=== PATIENT | female | born 1990 | race Caucasian/White ===

== ENCOUNTER → 2020-12-15 | Outpatient (CLI) | payer OTHER, SELFPAY ==
[2020-12-15 15:29] VITALS: BMI 24.9
[2020-12-20 13:48] LABS: HPV APTIMA, High Risk Negative (Negative)
== END | disposition home or self-care (01) ==
LOC: LABSPEC 17:10
PROVIDERS: PCP Family Medicine; Referring Provider Obstetrics & Gynecology; Visit Provider Obstetrics & Gynecology
DX: Z12.4 Encounter for screening for malignant neoplasm of cervix (principal)
CPT/HCPCS: 87624; 88175; G0145

== ENCOUNTER → 2021-01-20 | Outpatient (CLI) | payer OTHER, SELFPAY ==
[2021-01-20 13:42] LABS: Amphetamine Urine VISTA NEGATIVE (<1000 ng/mL); Barbiturate Urine VISTA NEGATIVE (< 200 ng/mL); Benzodiazepine Urine VISTA NEGATIVE (< 200 ng/mL); Cocaine Urine VISTA NEGATIVE (< 300 ng/mL); Ecstacy Urine VISTA NEGATIVE (< 500 ng/mL); Methadone Urine VISTA NEGATIVE (< 300 ng/mL); PCP Urine VISTA NEGATIVE (< 25 ng/mL); THC Urine VISTA NEGATIVE (< 50 ng/mL); Vista UDS pH Range 6
[2021-01-22 03:08] LABS: Chlamydia By Nucleic Acid AMP Negative (Negative)
[2021-01-22 09:16] LABS: Gonococcus By Nucleic Acid AMP Negative (Negative)
== END | disposition home or self-care (01) ==
LOC: LABSPEC 13:25
PROVIDERS: PCP Family Medicine; Referring Provider Obstetrics & Gynecology; Visit Provider Obstetrics & Gynecology
DX: Z34.80 Encounter for supervision of other normal pregnancy, unspecified trimester (principal); E03.9 Hypothyroidism, unspecified
CPT/HCPCS: 80307; 87077; 87086; 87088; 87186; 87491; 87591

== ENCOUNTER 2021-02-06 06:35 | Emergency (ER) | payer OTHER, SELFPAY ==
[2021-02-06 06:36] VITALS: BP 90/65; PULSE 73; RESP 16; TEMP 37.1; O2SAT 97; BMI 26.4
--- NOTE | 2021-02-06 07:12 | EDS_ITS ---
HPI History of Present Illness Chief Complaint: Nausea/Vomiting/Diarrhea Informant: patient and spouse/S.O. Narrative Narrative: Patient presents with a few issues. 1 issue is that she woke up and has a few hives in various parts of her body this morning. They itch. But she has no shortness of breath. Radiation no new medications. She did get a flu shot on Sunday but the symptoms really just started overnight. Patient also has had hyperemesis gravidarum for about 6 weeks. It waxes and wanes. She has tried Phenergan a couple times when she has been nauseated but she is always vomited. She was also treated for UTI. She ended nitrofurantoin on Sunday. She states the urine is still dark. There is mild frequency. She also thinks she may have had a slight fever over the last day. She also has a slight nonproductive cough and some myalgias. She states she feels sort of like a flu. She did have Covid back the beginning of the year. She has not had immunizations. Her also has a very slight nonproductive cough. Nothing specifically makes the symptoms better or worse. [facility] Medical History History of oligohydramnios in prior , currently IUGR (intrauterine growth restriction) in prior , Home Medications levothyroxine 137 mcg capsule 137 mcg PO DAILY 12/15/20 [History Last Taken Unknown] multivitamin no.47-iron fum 27 mg-folate no.1 1 mg-dha 300 mg capsule cap PO 01/04/21 [History Last Taken Unknown] cephalexin 500 mg PO Q6 #40 cap 02/06/21 [Rx Last Taken Unknown] ondansetron 4 mg PO Q8H PRN #10 tab 02/06/21 [Rx Last Taken Unknown] sertraline 25 mg PO DAILY 02/06/21 [History Last Taken Unknown] Allergy/AdvReac Type Severity Reaction Status Date / Time No Known Allergies Allergy Verified 01/20/21 10:07 Family History Father Diabetes Grandfather Diabetes Mother Seizures Surgical History S/P Social History adopted: Yes Smoking Status: Never smoker alcohol intake: current alcohol intake frequency: holidays/special occasions only substance use type: does not use caffeine: Yes what type of physical activity do you participate in: walking and additional details: yuni frequency: 1-2 times per week additional social history: -Stephen ROS ROS ED Constitutional Constitutional ED: Reports subjective Eyes Eyes: Denies change in vision ENT ENT ED: Reports rhinorrhea and sore throat; Denies ear pain Cardiovascular Cardiovascular: Denies chest pain or palpitations Respiratory/Chest Respiratory/Chest: Reports cough; Denies dyspnea or sputum Gastrointestinal Gastrointestinal: Reports nausea and vomiting; Denies abdominal pain or diarrhea Genitourinary Genitourinary ED: Reports dysuria, urinary frequency and other Details: Occasional dark urine with mild dysuria and mild odor. This has been waxing and waning for some time. Musculoskeletal Musculoskeletal: Reports myalgias Integumentary Reports rash; Denies abscess or Abrasions Neurologic Neurologic: Denies headache(s) Endocrine Endocrinology: Denies polyuria Allergic/Immunologic Allergic/Immunologic ED: Reports urticaria; Denies mouth swelling or tongue swelling EXAM Physical Exam Const Vital Signs: 02/06/21 06:36 02/06/21 08:58 02/06/21 10:00 Temperature 98.7 F Temperature Source Temporal Pulse Rate 73 75 Respiratory Rate 16 16 16 Blood Pressure 90/65 99/68 Blood Pressure Mean 73 78 Pulse Ox 97 100 Oxygen Delivery Method Room Air Room Air Positive well nourished and well developed General Appearance ED: well developed and NAD HEENT Reports dry mucous membranes Negative for trauma or tenderness Mouth ED: Yes dry mucous membranes Mouth: dry mucous membranes Eyes General Eye ED: Negative for pale conjunctiva or scleral icterus Neck no lymphadenopathy Resp normal respiratory effort and clear to auscultation bilaterally Auscultation: Negative for rales, rhonchi or wheezes Cardio regular rate and regular rhythm GI normal to inspection, nondistended, normoactive bowel sounds and non-tender Palpation: soft Back/Spine no CVA tenderness Extremity normal to inspection Neuro oriented x3 Sensorium / Orientation: alert Psych mental status grossly normal Skin Skin Narrative: Patient does have just a small number of hives. She has some on her right and left hip area. Small amount of redness on forearms. These are pruritic raised well demarcated. MDM MDM MDM Narrative Medical decision making narrative: Patient's blood work shows mild anemia which is nonspecific. Potassium should self correct. It is mildly low at 3.4. Urine does show increased white cells and leukocyte esterase. This is a good clean- catch. With some mild symptoms of urine infection, subjective fevers we will treat this pending culture. I explained that if her culture is negative we may be able to stop this. Her Covid is negative. She feels better with meds. I will get her home on Zofran. We discussed some of the studies that have showed concerns with it but it is also important that she tolerates food and fluids. She will follow up with her OB physician. Lab Data Attestation: I reviewed the patient's lab results. Labs: Laboratory Results - last 24 hr 02/06/21 02/06/21 02/06/21 06:50 06:50 09:00 WBC 7.9 RBC 3.77 L Hgb 11.3 L Hct 34.4 L MCV 91.2 MCH 30.0 MCHC 32.8 RDW Std Deviation 42.6 RDW Coeff of Shantel 12.7 Plt Count 179 MPV 10.5 Immature Gran % (Auto) 0.500 Neut % (Auto) 70.4 H Lymph % (Auto) 19.0 Toole % (Auto) 8.4 Eos % (Auto) 1.3 Baso % (Auto) 0.4 Absolute Neuts (auto) 5.5 Absolute Lymphs (auto) 1.49 Nucleated RBC % 0 Sodium 139 Potassium 3.4 L Chloride 108 H Carbon Dioxide 24.0 Anion Gap 7 BUN 4 L Creatinine 0.44 L Estim Creat Clear Calc 150.43 Est GFR (MDRD) Af Amer 212 Est GFR (MDRD) Non-Af 176 BUN/Creatinine Ratio 9.1 L Glucose 97 Calcium 8.7 Urine Color Yellow Urine Clarity Clear Urine pH 7.0 Ur Specific [place] 1.010 Urine Protein Negative Urine Glucose (UA) Normal Urine Ketones Negative Urine Occult Blood 10 H Urine Nitrite Negative Urine Bilirubin Negative Urine Urobilinogen Normal Ur Leukocyte Esterase 500 H Urine RBC 0 SEEN Urine WBC 5-10 SEEN Ur Squamous Epith Cells 0 SEEN Urine Bacteria 2+ Urine Mucus 0 SEEN Discharge Plan Triage Chief Complaint: Nausea/Vomiting/Diarrhea ED Provider: Antonio Baires Dx/Rx/DC Orders Clinical Impression: UTI in , Hyperemesis gravidarum Instructions: Urinary Tract Infections in Women, ED Hyperemesis Gravidarum Prescriptions: New cephalexin [cephalexin] 500 MG capsule 500 mg PO Q6 Qty: 40 RF: 0 ondansetron 4 mg tablet,disintegrating 4 mg PO Q8H PRN (Reason: nausea and vomiting) Qty: 10 RF: 0 No Action levothyroxine 137 mcg capsule 137 mcg PO DAILY RF: 0 PNV-DHA 27 mg iron-1 mg -300 mg capsule PO RF: 0 sertraline 25 mg tablet 25 mg PO DAILY RF: 0 Primary Care Provider: Cain Holley Referrals: Cain Holley MD [Primary Care Provider] - Smiley Madrid MD [STAFF PHYSICIAN] - 1-2 Days if not improving Disposition Disposition: Home, Self Care
[2021-02-06] MEDS: 0.9% Normal Saline 1,000 ML 1000 ML IV (07:25)
[2021-02-06] MEDS: Ondansetron 4 MG/2 ML Vial IV (07:25)
[2021-02-06 07:31] LABS: Anion Gap 7 (5-15); BUN 4 mg/dL (7-18); BUN/Creat Ratio 9.1 RATIO (10-20); Calcium,Total 8.7 mg/dL (8.5-10.1); Chloride 108 mmol/L (98-107); Creatinine, Serum 0.44 mg/dL (0.55-1.02); EST Glomerular Filtration Rate 176 mL/min (>60); Est Glom Filt Rate - Afr Amer 212 mL/min (>60); Estimated Creatinine Clearance 150.43 ml/min; Glucose 97 mg/dL (74-106); Potassium 3.4 mmol/L (3.5-5.1); Sodium Level 139 mmol/L (136-145)
[2021-02-06 07:32] LABS: Absolute Lymphocyte Count 1.49 X10^3/uL (0.83-4.51); Absolute Neutrophil Count 5.5 X10^3/uL (2.0-7.7); Basophil# 0.03 X10^3/uL; Basophil% 0.4 % (0-1); Eosinophils% 1.3 % (0-5); Hematocrit 34.4 % (37-47); Hemoglobin 11.3 g/dL (12.0-15.0); Lymphocyte # 1.49 X10^3/ul (0.83-4.51); Mean Corp Hgb Conc 32.8 g/dL (32-36); Mean Corpuscular Volume 91.2 fL (81-99); Mean Platelet Vol. 10.5 fl (6.2-12.0); Monocyte# 0.66 X10^3/uL; Monocyte% 8.4 % (0-10); NRBC Flagged by Analyzer 0 % (0-5); Neutrophil # 5.53 X10^3/uL (2.7-7.7); Neutrophil % 70.4 % (47-70); Platelet Count 179 K/mm3 (150-450); RBC Distribution Width CV 12.7 % (11.6-14.6); RBC Distribution Width SD 42.6 fl (35.1-43.9); Red Blood Count 3.77 M/mm3 (4.2-5.4); White Blood Count 7.9 K/mm3 (4.4-11.0)
[2021-02-06 08:58] VITALS: BP 99/68; PULSE 75; RESP 16; O2SAT 100
[2021-02-06 09:11] LABS: Mucous, Urine 0 SEEN /hpf (<or=2+); Red Blood Cells-Urine 0 SEEN /hpf (0-5); Squamous Epithelial Cells - UA 0 SEEN /hpf (5-10)
[2021-02-06 09:13] LABS: Color, Urine Yellow (Yellow); Glucose, Dipstick Normal (Normal); Ketone-Dipstick Negative (Negative); Leukocyte Esterase-Dipstick 500 /ul (Negative); Nitrite-Dipstick Negative (Negative); Occult Blood-Urine 10 /ul (Negative); Protein-Dipstick Negative (Negative); Urine Bilirubin Dipstick Negative (Negative); Urine Clarity Clear (Clear); Urine Urobilinogen Normal (Normal)
[2021-02-06 09:25] LABS: Bacteria 2+ /hpf (None Seen); White Blood Cells 5-10 SEEN /hpf (0-5)
[2021-02-06 10:00] VITALS: RESP 16
[2021-02-06 10:59] VITALS: PULSE 80; RESP 16; O2SAT 98
== END 2021-02-06 11:01 | disposition home or self-care (01) ==
PROVIDERS: Emergency Provider Emergency Medicine; PCP Family Medicine
DX: O23.40 Unspecified infection of urinary tract in pregnancy, unspecified trimester (principal); N39.0 Urinary tract infection, site not specified; O21.0 Mild hyperemesis gravidarum; Z3A.00 Weeks of gestation of pregnancy not specified
CPT/HCPCS: 80048; 81001; 85025; 87077; 87086; 87088; 87186; 87426; 96361; 96374; 99283; J7030; A4216; J2405

== ENCOUNTER → 2021-03-17 11:00 | Outpatient (CLI) | payer OTHER, SELFPAY ==
[2021-03-17 11:40] LABS: Absolute Lymphocyte Count 1.55 X10^3/uL (0.83-4.51); Basophil# 0.03 X10^3/uL; Basophil% 0.4 % (0-1); Eosinophil# 0.19 X10^3/uL; Eosinophils% 2.3 % (0-5); Hematocrit 32.4 % (37-47); Hemoglobin 10.8 g/dL (12.0-15.0); Lymphocyte # 1.55 X10^3/ul (0.83-4.51); Lymphocyte % 18.7 % (19-41); Mean Corp Hgb Conc 33.3 g/dL (32-36); Mean Corpuscular Hgb 30.2 pg (27.0-32.0); Mean Corpuscular Volume 90.5 fL (81-99); Mean Platelet Vol. 10.3 fl (6.2-12.0); Monocyte# 0.47 X10^3/uL; Monocyte% 5.7 % (0-10); NRBC Flagged by Analyzer 0 % (0-5); Neutrophil # 6.03 X10^3/uL (2.7-7.7); Neutrophil % 72.5 % (47-70); Platelet Count 206 K/mm3 (150-450); RBC Distribution Width CV 13.3 % (11.6-14.6); RBC Distribution Width SD 43.8 fl (35.1-43.9); Red Blood Count 3.58 M/mm3 (4.2-5.4); White Blood Count 8.3 K/mm3 (4.4-11.0)
[2021-03-17 12:08] LABS: T4 Free Direct 1.07 ng/dL (0.76-1.46); Thyroid Stim Hormone (TSH) 5.83 uIU/mL (0.358-3.74)
[2021-03-17 12:40] LABS: HIV - WCH Non-Reactive (Nonreactive); Hepatitis B Surface Antigen Non-Reactive (Nonreactive); Hepatitis C Antibody Non-Reactive (Nonreactive); Rubella IgG Reactive (Nonreactive); Syphilis Antibodies Non-reactive
== END ==
PROVIDERS: Obstetrics & Gynecology; PCP Family Medicine; Referring Provider Nurse Practitioner Women's Health; Visit Provider Nurse Practitioner Women's Health
DX: O23.40 Unspecified infection of urinary tract in pregnancy, unspecified trimester (principal); E03.9 Hypothyroidism, unspecified; Z3A.00 Weeks of gestation of pregnancy not specified
CPT/HCPCS: 36415; 84439; 84443; 85025; 86703; 86762; 86780; 86803; 86850; 86900; 86901; 87077; 87086; 87088; 87186; 87340

== ENCOUNTER 2021-03-28 12:05 | Outpatient (CLI) | payer OTHER, SELFPAY ==
[2021-03-28 12:25] VITALS: BMI 26.4
[2021-03-28 12:34] VITALS: BP 107/53; PULSE 67; TEMP 36.3
[2021-03-28 12:56] LABS: ROM Internal Control Test YES-OK TO RESULT pt. (Internal QC); ROM Patient Test Negative (Negative)
--- NOTE | 2021-03-28 15:59 | NURSING ---
DR Madrid's called and pt ROM negative. may discharge home.
--- NOTE | 2021-03-28 17:33 | OB.TRI.PN ---
Progress Notes Date of Service: 03/28/21 Progress Note: seen for possible ROM and amnisure negative positive FHT fu as scheduled Laboratory Studies: Laboratory Tests 03/28/21 Range/Units 12:32 Vag Amniotic Fld Detect Negative (Negative) Charges/Coding Procedures Urinary/Genital 52xxx-59xxx: No Charge
== END 2021-03-28 13:15 | disposition home or self-care (01) ==
LOC: WPOUT 12:13 → WP 12:15
PROVIDERS: PCP Family Medicine; Visit Provider Obstetrics & Gynecology
DX: Z03.71 Encounter for suspected problem with amniotic cavity and membrane ruled out (principal)
CPT/HCPCS: 84112; 99218; G0378

== ENCOUNTER 2021-05-12 10:01 | Outpatient (CLI) | payer OTHER, SELFPAY ==
[2021-05-12 10:53] LABS: T4 Free Direct 0.95 ng/dL (0.76-1.46); Thyroid Stim Hormone (TSH) 1.66 uIU/mL (0.358-3.74)
== END 2021-05-12 23:59 | disposition short-term general hospital (02) ==
LOC: PAVLAB 10:02
PROVIDERS: PCP Family Medicine; Referring Provider Obstetrics & Gynecology; Visit Provider Obstetrics & Gynecology
DX: E03.9 Hypothyroidism, unspecified (principal)
CPT/HCPCS: 36415; 84439; 84443

== ENCOUNTER 2021-06-10 12:24 | Outpatient (CLI) | payer OTHER, SELFPAY ==
[2021-06-10 12:51] LABS: Absolute Lymphocyte Count 0.81 X10^3/uL (0.83-4.51); Absolute Neutrophil Count 4.4 X10^3/uL (2.0-7.7); Basophil# 0.01 X10^3/uL; Basophil% 0.2 % (0-1); Eosinophil# 0.02 X10^3/uL; Eosinophils% 0.3 % (0-5); Hematocrit 32.4 % (37-47); Hemoglobin 11.1 g/dL (12.0-15.0); Lymphocyte # 0.81 X10^3/ul (0.83-4.51); Mean Corp Hgb Conc 34.3 g/dL (32-36); Mean Corpuscular Volume 93.4 fL (81-99); Mean Platelet Vol. 10.1 fl (6.2-12.0); Monocyte# 0.47 X10^3/uL; Monocyte% 8.1 % (0-10); NRBC Flagged by Analyzer 0 % (0-5); Neutrophil # 4.42 X10^3/uL (2.7-7.7); Neutrophil % 76.7 % (47-70); Platelet Count 174 K/mm3 (150-450); RBC Distribution Width CV 12.8 % (11.6-14.6); RBC Distribution Width SD 43.6 fl (35.1-43.9); Red Blood Count 3.47 M/mm3 (4.2-5.4); White Blood Count 5.8 K/mm3 (4.4-11.0)
[2021-06-10 13:13] LABS: Glucose Challenge Gest 1H 50g 143 mg/dL (70-140)
== END 2021-06-10 23:59 | disposition short-term general hospital (02) ==
LOC: LAB 12:26
PROVIDERS: PCP Family Medicine; Referring Provider Obstetrics & Gynecology; Visit Provider Obstetrics & Gynecology
DX: Z34.80 Encounter for supervision of other normal pregnancy, unspecified trimester (principal)
CPT/HCPCS: 36415; 82950; 85025

== ENCOUNTER 2021-06-20 06:56 | Outpatient (CLI) | payer OTHER, SELFPAY ==
[2021-06-20 07:35] LABS: Glucose GTT-Gestation. Fasting 86 mg/dL (<105)
[2021-06-20 07:52] LABS: Thyroid Stim Hormone (TSH) 2.71 uIU/mL (0.358-3.74)
[2021-06-20 08:50] LABS: Glucose GTT-Gestational 1 Hr 187 mg/dL (<190)
[2021-06-20 09:58] LABS: Glucose GTT-Gestational 2 Hr 170 mg/dL (<165)
[2021-06-20 11:01] LABS: Glucose GTT-Gestational 3 Hr 117 L (<145)
== END 2021-06-20 23:59 | disposition home or self-care (01) ==
LOC: LAB 06:56
PROVIDERS: PCP Family Medicine; Visit Provider Obstetrics & Gynecology
DX: O99.810 Abnormal glucose 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 pregnancy (principal); O99.280 Endocrine, nutritional and metabolic diseases 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 pregnancy, unspecified trimester; E03.9 Hypothyroidism, unspecified
CPT/HCPCS: 36415; 82951; 82952; 84443

== ENCOUNTER 2021-06-30 10:55 | Outpatient (RCR) | payer OTHER, SELFPAY | END 2021-07-04 23:59 | LOC: NS 10:55 | PROVIDERS: PCP Family Medicine; Referring Provider Obstetrics & Gynecology; Visit Provider Obstetrics & Gynecology | DX: Z71.3 Dietary counseling and surveillance (principal); O24.419 Gestational diabetes mellitus in pregnancy, unspecified control; Z3A.00 Weeks of gestation of pregnancy not specified | CPT/HCPCS: 97802 ==

== ENCOUNTER 2021-07-27 13:00 | Outpatient (RCR) | payer OTHER, SELFPAY | END 2021-08-04 23:59 | LOC: DC 13:00 | PROVIDERS: PCP Family Medicine; Referring Provider Obstetrics & Gynecology; Visit Provider Obstetrics & Gynecology | DX: O24.419 Gestational diabetes mellitus in pregnancy, unspecified control (principal) | CPT/HCPCS: 97803 ==

== ENCOUNTER 2021-07-29 07:53 | Outpatient (CLI) | payer OTHER, SELFPAY ==
--- NOTE | 2021-07-29 08:39 | US_ITS ---
STUDY: SECOND AND THIRD TRIMESTER OBSTETRICAL ULTRASOUND - LIMITED REASON FOR EXAM: Female, 31 years old. growth PRIOR ULTRASOUND: None. TECHNIQUE: Transabdominal TECHNICAL QUALITY: Adequate. FINDINGS: There is a single intrauterine fetus. The fetus is in a cephalic presentation. There is demonstrated cardiac activity with a heart rate of 130 bpm. There is a normal amniotic fluid volume. The largest amniotic fluid pocket measures 5 cm. The amniotic fluid index (MARTI) is 11.6 cm. The placenta is anterior in location and is not low lying. There are Grade 1 placental changes. The cervix is obscured by overlying bowel gas and cannot be identified. . BIOMETRY: BPD: 82 mm: 33 weeks, 0 days HC: 306 mm: 34 weeks, 0 days AC: 333 mm: 37 weeks, 1 days FL: 70 mm: 35 weeks, 6 days CI: 77 FL/AC: 21 FL/BPD: 85 HC/AC: 0.92 age by current US: 34 weeks, 5 days. MARGUERITE by current US: 5.1.22. Estimated weight: 2887 grams, +/- 433 grams, 58 %. Age by LMP: 36 weeks, 0 days. MARGUERITE by LMP: 4.22.22. US/OB Limited With Biometrics IMPRESSION: There is a single live intrauterine with a heart rate of 130 bpm. age by current US: 34 weeks, 5 days. MARGUERITE by current US: 5.1.22. Estimated weight: 2887 grams, +/- 433 grams, 58 %. Electronically Signed: Daniel Lawrence MD at 17:14 EDT ,
== END 2021-07-29 23:59 | disposition home or self-care (01) ==
LOC: OPUS 08:38
PROVIDERS: PCP Family Medicine; Referring Provider Obstetrics & Gynecology; Visit Provider Obstetrics & Gynecology
DX: O24.410 Gestational diabetes mellitus in pregnancy, diet controlled (principal); Z3A.00 Weeks of gestation of pregnancy not specified
CPT/HCPCS: 76816

== ENCOUNTER 2021-08-05 08:09 | Outpatient (CLI) | payer OTHER, SELFPAY | END 2021-08-05 23:59 | disposition home or self-care (01) | LOC: LABSPEC 08-08 08:10 | PROVIDERS: PCP Family Medicine; Visit Provider Obstetrics & Gynecology | DX: Z34.80 Encounter for supervision of other normal pregnancy, unspecified trimester (principal) | CPT/HCPCS: 87081 ==

== ENCOUNTER 2021-08-22 05:03 | Inpatient (IN) | payer OTHER, SELFPAY ==
--- NOTE | 2021-08-21 04:47 | HP.PCM.OB_ITS ---
HPI - General HPI Narrative KARRI VILLAVICENCIO, is a 31 F who presents for scheduled RLTCS Maternal Data Information MARGUERITE Calculator Estimated Delivery Date Method Current WG Current Estimate 08/26/21 LMP (Certain) 39w 2d PFSH PFSH Medical History Anemia affecting History of oligohydramnios in prior , currently IUGR (intrauterine growth restriction) in prior , Home Medications multivitamin no.47-iron fum 27 mg-folate no.1 1 mg-dha 300 mg capsule cap PO 01/04/21 [History Last Taken Unknown] sertraline 25 mg PO DAILY 02/06/21 [History Last Taken Unknown] cephalexin 500 mg tablet 500 mg PO BID #60 tab 03/21/21 [Rx Last Taken Unknown] levothyroxine 150 mcg tablet 150 mcg PO DAILY 30 Days #30 tab 04/14/21 [Rx Last Taken Unknown] blood sugar diagnostic #50 ea 06/22/21 [Rx Last Taken Unknown] Allergy/AdvReac Type Severity Reaction Status Date / Time No Known Allergies Allergy Verified 08/12/21 08:53 Family History Father Diabetes Grandfather Diabetes Mother Seizures Surgical History S/P Social History adopted: Yes Smoking Status: Never smoker alcohol intake: current alcohol intake frequency: holidays/special occasions only substance use type: does not use caffeine: Yes what type of physical activity do you participate in: walking and additional details: yuni frequency: 1-2 times per week additional social history: -Stephen History 4 Elective abortions Hx Para 2 Spontaneous abortions 1 Hx # Term Pregnancies Ectopic pregnancies Hx # Pregnancies Multiple births # of living children 2 Past Pregnancies Del. Date Name GA/Weeks Outcome Route Bth Weight Gen Labor Lgth Anesthesia Del Locatn Provider FOB 04/03/17 Antonina 40 live - full term 7lbs 12oz Fem sahil 3 days epidural [facility] Dr. Myranda Mitchell 01/10/19 Raffy 36 live - 5lbs 12oz Male 0 spinal Worthamolga Mitchell Delivery Date: 04/03/17 STAT c/s nuchal cord; distress Kim Olsen Delivery Date: 01/10/19 PPROM, STAT C/S; IUGR; [place] Kim Olsen Visit Details Expected Delivery Route/Plan RLTCS Plans Covid status: pos May, counseled regarding risk of covid in vs vaccination and considering vaccination Flu vaccine: given Tdap vaccine:given Rhogam: LARC form signed: declined movement and labor precautions reviewed. Problem list reviewed and updated with the most current plan of care details and appropriate orders placed. Relevant counseling for the gestational age provided. Continue routine care and follow up unless otherwise noted in visit notes/problem list details OB Flowsheet Initial Weight: 148 lb Date -?-?-?-?-?-?-?-?-?-?-?-?- EGA Weight BP Urine Prot -?-?-?-?-?-?-?-?-?-?-?-?- Glucose FHR FuHt Pres Dilation -?-?-?-?-?-?-?-?-?-?-?-?- Effaced St Visit Note 01/20/21 -?-?-?-?-?-?-?-?-?-?-?-?- 8w 6d 148 lb (+0 oz) 116/70 -?-?-?-?-?-?-?-?-?-?-?-?- 168 -?-?-?-?-?-?-?-?-?-?-?-?- SM- CRL 2 cm con s with LMP 02/18/21 -?-?-?-?-?-?-?-?-?-?-?-?- 13w 0d 148 lb 2 oz (+2 oz) 118/78 Negative -?-?-?-?-?-?-?-?-?-?-?-?- Negative 140 -?--?-?-?-?-?-?-?-?-?-?-?- GP - no cramping or bleeding. Discussed N/V. Discussed hives -encouraged to call PCP if continue. Anatomy scan ordered. 03/17/21 -?-?-?-?-?-?-?-?-?-?-?-?- 16w 6d 152 lb (+4 lb) 112/58 Negative -?-?-?-?-?-?-?-?-?-?-?-?- Negative 141 -?-?-?-?-?-?-?-?-?-?-?-?- MH-No VB, LOF. Feeling better. Anatomy US 03/29. Echo ordered 04/14/21 -?-?-?-?-?-?-?-?-?-?-?-?- 20w 6d 155 lb 6 oz (+7 lb 6 oz) 122/68 Negative -?-?-?-?-?-?-?-?-?-?-?-?- Negative 123 -?-?-?-?-?-?-?-?-?-?-?-?- JV- no lof, vagi nal bleeding but has left side pain radiating down to leg 05/12/21 -?-?-?-?-?-?-?-?-?-?-?-?- 24w 6d 162 lb (+14 lb) 118/60 Negative -?-?-?-?-?-?-?-?-?-?-?-?- Negative 150 25 -?-?-?-?-?-?-?-?-?-?-?-?- SM- no vb lof go od fm no regular ct 06/10/21 -?-?-?-?-?-?-?-?-?-?-?-?- 29w 0d 162 lb 2 oz (+14 lb 2 oz) 114/60 Negative -?-?-?-?-?-?-?-?-?-?-?-?- Negative 147 28 -?-?-?-?-?-?-?-?-?-?-?-?- JV- abnormal 1 h r, 3 hr gtt ordered. needs rpt tsh in July. 06/23/21 -?-?-?--?-?-?-?-?-?-?-?-?- 30w 6d 167 lb 2 oz (+19 lb 2 oz) 130/70 Negative -?-?-?-?-?-?-?-?-?-?-?-?- Negative 145 31 -?-?-?-?-?-?-?-?-?-?-?-?- JV- no lof ,vagi nal bleeding or dec fm. pt wants rpt section after [place]. 07/08/21 -?-?-?-?-?-?-?-?-?-?-?-?- 33w 0d 163 lb 6 oz (+15 lb 6 oz) 122/64 Negative -?-?-?-?-?-?-?-?-?-?-?-?- Negative 140 33 -?-?-?-?-?-?-?-?-?-?-?-?- Sm- no vb lof go od fm n oreular ctx co ear ocngestion, will fu with pcp Sm- no vb lof good fm n oreu lar ctx co ear ocngestion, will fu with pcp, ordered medrol dose pack, discussed sudafed also, and discussed watching blood sugars if takes steroids. 07/22/21 -?-?-?-?-?-?-?-?-?-?-?-?- 35w 0d 164 lb (+16 lb) 122/64 Negative -?-?-?-?-?-?-?-?-?-?-?-?- Negative 160 36 Cephalic -?-?-?-?-?-?-?-?-?-?-?-?- SM- no vb lof go od fm no regular ctx 07/28/21 -?-?-?-?-?-?-?-?-?-?-?-?- 35w 6d 166 lb (+18 lb) 100/58 -?-?-?-?-?-?-?-?-?-?-?-?- 140 37 Cephalic -?-?-?-?-?-?-?-?-?-?-?-?- SM- no vb lof go od fm no regular ctx 08/05/21 -?-?-?-?-?-?-?-?-?-?-?--?- 37w 0d 166 lb 6 oz (+18 lb 6 oz) 120/78 Negative -?-?-?-?-?-?-?-?-?-?-?-?- Negative 146 36 Cephalic -?-?-?-?-?-?-?-?-?-?-?--?- JV- no lof, vagi nal bleeding, or dec fm. gbs today. normal growth scan last week 08/12/21 -?-?-?-?-?-?-?-?-?-?-?-?- 38w 0d 167 lb 2 oz (+19 lb 2 oz) 110/80 Negative -?-?-?-?-?-?-?-?-?-?-?-?- Negative 120 37 Cephalic -?-?-?-?-?-?-?-?-?-?-?-?- JV- no lof ,vagi nal bleeding, or cramping. c/s next week. 08/22/21 -?-?-?-?-?-?-?-?-?-?-?-?- 39w 3d -?-?-?-?-?-?-?-?-?-?-?-?- -?-?-?-?-?-?-?-?-?-?-?-?- NST FHR Rate Baby A Baseline: 130 ROS Constitutional Constitutional: Reports systems reviewed and no addt'l complaints, except as documented Eyes Eyes: Denies change in vision ENT HEENT: Reports systems reviewed and no addt'l complaints, except as documented; Denies headache(s) Cardiovascular Cardiovascular: Reports systems reviewed and no addt'l complaints, except as documented; Denies chest pain or dyspnea Respiratory/Chest Respiratory/Chest: Reports systems reviewed and no addt'l complaints, except as documented Gastrointestinal Gastrointestinal: Reports systems reviewed and no addt'l complaints, except as d ocumented; Denies abdominal pain Genitourinary Genitourinary: Reports systems reviewed and no addt'l complaints, except as documented, contractions Details: present (irregular) and movement Details: present; Denies dysuria or genital lesions Musculoskeletal Musculoskeletal: Reports systems reviewed and no addt'l complaints, except as documented Neurologic Neurologic: Reports systems reviewed and no addt'l complaints, except as documented Endocrine Endocrinology: Reports systems reviewed and no addt'l complaints, except as documented Physical Exam Const alert, oriented x3, no apparent distress and healthy appearing HEENT normocephalic and moist oral mucous membranes Head and Scalp: atraumatic Neck full ROM, no lymphadenopathy, supple and thyroid normal General: trachea midline Lymph Lymphatic: no lymphadenopathy noted Chest inspection of chest normal Resp normal respiratory effort Cardio regular rate GI normal to inspection, nondistended, normoactive bowel sounds, soft to palpation and non-tender Inspection: gravid external exam normal Manual OB Exam: estimated gestational size appropriate, presentation cephalic, dilated, effaced and station Extremity normal to inspection General Extremity: Negative for edema Skin no rashes or lesions noted Neuro no focal motor deficits and deep tendon reflexes 2+ bilaterally Motor Exam: strength 5/5 throughout and clonus absent Psych mental status grossly normal Labs Labs Labs: Blood Type O POSITIVE Antibody Screen NEGATIVE Hct 32.4 % (37-47) L Hgb 11.1 g/dL (12.0-15.0) L Pap Smear Negative Obstetrics US Syphilis Total Ab Non-reactive Rubella IgG Antibody Reactive (Nonreactive) Hep Bs Antigen Non-Reactive (Nonreactive) Chlamydia DNA (LYLY) Negative (Negative) Neisseria gonorrhoeae DNA (LYLY) Negative (Negative) HIV 1&2 Antibody Non-Reactive (Nonreactive) Glucose 1 Hr 50 gm 143 mg/dL (70-140) H Assessment & Plan (1) Gestational diabetes: QUALIFIERS: Gestational diabetes mellitus control: diet-controlled Trimester: third trimester Qualified Code(s): O24.410 - Gestational diabetes mellitus in , diet controlled COMMENT: diet controlled. (2) Marginal insertion of umbilical cord: COMMENT: needs growth scans [id number] cord insertion per growth US, 2/17 nl growth, 3/17 nl growth (3) Anemia affecting : (4) IUGR (intrauterine growth restriction) in prior , : (5) UTI in : COMMENT: + at NOB. rpt +. treat rx remainder of (6) Family history of congenital anomaly of cardiovascular system: COMMENT: Stephen's brother born with transposition of arteries, echo normal (7) Supervision of other normal : COMMENT: PRR MARGUERITE: 08/26/21 GIRL PC: Raffy Sarkar Spouse: Stephen (8) : QUALIFIERS: Weeks of gestation: 37 weeks Qualified Code(s): Z3A.37 - 37 weeks gestation of COMMENT: declined genetic, carrier and NTD, NL anatomy; gbs negative (9) H/O section: COMMENT: x2 Plan RC/S at 39 weeks with SM. scheduled 08/22 @ 7:30am (10) Anxiety: COMMENT: previously on Zoloft, no meds at present, counseling encouraged. (11) Hypothyroidism: COMMENT: needs TSH qtrimester- currently increased Levothyroxine from 137 to 150mcg. rpt in one month from 04/14 visit. order in. pt aware. PLAN: plan RLTCS
[2021-08-22] VITALS (20 sets, daily range): BP systolic 92–121; BP diastolic 36–72; PULSE 67–81; RESP 12–18; TEMP 36.1–36.8; O2SAT 96–100; BMI 28.8
[2021-08-22] MEDS: Lactated Ringers 1,000 ML 999 ML IV (05:45)
[2021-08-22 05:54] LABS: Absolute Lymphocyte Count 2.43 X10^3/uL (0.83-4.51); Absolute Neutrophil Count 5.3 X10^3/uL (2.0-7.7); Basophil# 0.03 X10^3/uL; Basophil% 0.3 % (0-1); Eosinophil# 0.13 X10^3/uL; Eosinophils% 1.5 % (0-5); Hematocrit 33.7 % (37-47); Hemoglobin 11.1 g/dL (12.0-15.0); Lymphocyte # 2.43 X10^3/ul (0.83-4.51); Lymphocyte % 27.5 % (19-41); Mean Corp Hgb Conc 32.9 g/dL (32-36); Mean Corpuscular Hgb 28.7 pg (27.0-32.0); Mean Corpuscular Volume 87.1 fL (81-99); Mean Platelet Vol. 10.7 fl (6.2-12.0); Monocyte# 0.89 X10^3/uL; Monocyte% 10.1 % (0-10); NRBC Flagged by Analyzer 0 % (0-5); Neutrophil % 59.9 % (47-70); Platelet Count 188 K/mm3 (150-450); RBC Distribution Width CV 14.1 % (11.6-14.6); RBC Distribution Width SD 44.1 fl (35.1-43.9); Red Blood Count 3.87 M/mm3 (4.2-5.4); White Blood Count 8.8 K/mm3 (4.4-11.0)
[2021-08-22 06:05] LABS: Bedside Glucose 98 mg/dL (74-106)
[2021-08-22] MEDS: Acetaminophen 500 MG Tablet 1000 MG PO ×4 (06:09→23:50)
[2021-08-22] MEDS: Lactated Ringers 1,000 ML 150 ML IV (06:46)
[2021-08-22] MEDS: Sodium Citrate/Citric Acid 30 ML UDC PO (07:14)
[2021-08-22] MEDS: Cefazolin 2 GM in 0.9% Normal Saline 100 ML IV (07:28)
--- NOTE | 2021-08-22 07:36 | OP.PCM_ITS ---
Assessment & Plan (1) Hypothyroidism: COMMENT: needs TSH qtrimester- currently increased Levothyroxine from 137 to 150mcg. rpt in one month from 04/14 visit. order in. pt aware. (2) Anxiety: COMMENT: previously on Zoloft, no meds at present, counseling encouraged. (3) H/O section: COMMENT: x2 Plan RC/S at 39 weeks with SM. scheduled 08/22 @ 7:30am (4) : QUALIFIERS: Weeks of gestation: 37 weeks Qualified Code(s): Z3A.37 - 37 weeks gestation of COMMENT: declined genetic, carrier and NTD, NL anatomy; gbs negative (5) Supervision of other normal : COMMENT: PRR MARGUERITE: 08/26/21 GIRL PC: Raffy Sarkar Spouse: Stephen (6) Family history of congenital anomaly of cardiovascular system: COMMENT: Stephen's brother born with transposition of arteries, echo normal (7) UTI in : COMMENT: + at NOB. rpt +. treat rx remainder of (8) Marginal insertion of umbilical cord: COMMENT: needs growth scans [id number] cord insertion per growth US, 06/23 nl growth, 07/21 nl growth (9) Gestational diabetes: QUALIFIERS: Gestational diabetes mellitus control: diet-controlled Trimester: third trimester Qualified Code(s): O24.410 - Gestational diabetes mellitus in , diet controlled COMMENT: diet controlled. (10) Anemia affecting : (11) IUGR (intrauterine growth restriction) in prior , : (12) delivery delivered: COMMENT: RLTCS 39 minimal scar tissue girl [place] Maternal Data Information MARGUERITE Calculator Estimated Delivery Date Method Current WG Current Estimate 08/26/21 LMP (Certain) 39w 3d Final MARGUERITE Source: LMP Details Operative Information Date of Procedure: 08/22/21 Pre-Operative Diagnosis: Previous Post-Operative Diagnosis: same Indications for : Repeat Elective Classification: Scheduled Procedure Type: low transverse Type of Anesthesia: Spinal Special Medications: none Antibiotic Given: Ancef 2 grams IV x1 Drain: Pena to straight drain Estimated Blood Loss: 400 Fluids Replaced: crystalloid Findings Description of Procedure: Spinal anesthesia was placed without difficulty. Pena catheter was placed. The patient was placed in the dorsal supine position with leftward tilt. Patient was prepped and draped in the normal sterile fashion. Pfannenstiel skin incision was made with the scalpel and carried through to the underlying layer of fascia with the scalpel. Fascia was nicked in the midline and the incision extended laterally. The rectus bellies were dissected off superiorly and inferiorly with out complication both sharply and bluntly. The peritoneum was entered digitally. some rectus sheath scar tissue was seen but was minimal. a healthy MILAGROS was seen with minimal scar tissue. The incision was stretched and a low transverse uterine incision was made with the scalpel. The 's head was delivered atraumatically followed by the anterior and posterior shoulders without complication the rest of the delivered. The cord was clamped and cut and the infant was handed off to awaiting nurse. The placenta was delivered spontaneously immediately following and was noted to be intact and have a three-vessel cord. The uterus was exteriorized cleared of all clots and debris, and the incision was closed in a double layer closure using #1 Monocryl. The ovaries and fallopian tubes were noted to be within normal limits. The uterus was returned to the maternal abdomen and gutters were cleared of all clots and debris. The peritoneum was closed with 3-0 Monocryl in a running fashion. Gloves were changed prior to fascial closure. Fascia was closed with 0 PDS in a running fashion. Subcutaneous tissue was copiously irrigated and the skin was closed with 3-0 Monocryl in a subcuticular fashion. Mepilex dressing was applied without complication. Patient was taken to recovery in stable condition. It was discussed with the patient that based on the clinical information obtained during this encounter, combined with her history, at this time I would recommend cesareans for future deliveries if further pregnancies are desired. Amniotic Membrane Rupture Type: Artificial Amniotic Fluid Description: Clear Placenta Disposition: [facility] Cord Vessel Description: 3 Vessels Cord Entanglement: None Delayed Cord Clamping: Yes Complications Risks of Surgery Discussed w/Patient: Bleeding, Infection, Need for Future C- Sections and Injury to surrounding structure(s) including bowel and bladder Vaginal Delivery Complication Complications: None Admit VTE Documentation VTE Present on Admission: No VTE Mechan Device Prophylaxis: SCD's Procedures Urinary/Genital 52xxx-59xxx: [id number] Delivery [facility]
[2021-08-22] MEDS: Oxytocin 30 units/NS 500 ml 30 UNITS/500 ML IV.SOLN 167 UNITS IV (08:45)
--- NOTE | 2021-08-22 08:55 | PCM.DC ---
Discharge Instructions Diet Discharge Diet: No restrictions Activity Discharge Activity: May Not Drive (for 2 weeks or while taking narcotic pain medications.), May Shower and May Take a Tub Bath (in 7 days) May shower in (days): 0 May resume sexual activity in: 4-6 weeks Weight Bearing Status: Full weight bearing Lifting Restrictions: 20 pounds Dressing / Incision Call your doctor if your incision/area has: Continuous Slow Oozing, Sudden Increased Bleeding, Increased Pain/ Swelling, Increased Redness and Foul Smelling Discharge Call your doctor if you observe: Fever of 101 or Higher and Using more than 1 pad per hour (for 2 hours) Suture Line Care: Avoid Pulling/Pushing and Avoid Pinching/Bending Cleanse incision/area with: Soap & Water and Keep Dressing Clean & Dry Follow Up Care Please Follow Up With: Smiley Madrid MD When: Call [phone] to make an appointment for an incision check in 1-2 weeks. Test Results: Test results from this visit will be discussed in further detail at your follow-up appointment, if applicable. Discharge Plan Admission Admit Date/Time: 08/22/21 05:03 Attending Provider: Smiley Madrid Primary Care Provider: Cain Holley Discharge Orders/Prescriptions Prescriptions: New oxycodone-acetaminophen [Percocet] 5-325 mg tablet 1 tab PO Q6H PRN (Reason: pain) 7 Days Qty: 20 RF: 0 naproxen [naproxen] 500 MG tablet 500 mg PO BID PRN PRN (Reason: Pain) Qty: 30 RF: 1 Continued PNV-DHA 27 mg iron-1 mg -300 mg capsule 1 cap PO RF: 0 sertraline 25 mg tablet 25 mg PO DAILY RF: 0 levothyroxine 150 mcg tablet 150 mcg PO DAILY RF: 0 cephalexin 500 mg tablet 500 mg PO BID RF: 0 (DME) Blood Glucose Test Strip See Rx Instructions .ROUTE .MEDSUPPLY Qty: 50 RF: 12 Referrals / Follow Up: Cain Holley MD [Primary Care Provider] - Disposition Disposition (needs filled in before D/C Order can be placed): Home, Self Care
[2021-08-22] MEDS: Ketorolac 30 MG/ML Syringe IV ×3 (10:10→21:34)
[2021-08-22 10:45] LABS: Bedside Glucose 104 mg/dL (74-106)
[2021-08-22] MEDS: Ondansetron 4 MG/2 ML Vial IV ×2 (12:53→21:40)
[2021-08-22] MEDS: Lactated Ringers 1,000 ML 100 ML IV (14:50)
[2021-08-22] MEDS: Cephalexin 500 MG Capsule PO ×2 (15:48→21:35)
[2021-08-23 00:03] VITALS: BP 103/46; PULSE 64; RESP 16; TEMP 36.4; O2SAT 97
[2021-08-23] MEDS: Ketorolac 30 MG/ML Syringe IV (03:28)
[2021-08-23] MEDS: 0.9% Saline Lock 10 ML Syringe IV (03:28)
[2021-08-23 03:43] VITALS: BP 109/56; PULSE 69; RESP 16; TEMP 36.2; O2SAT 100
[2021-08-23] MEDS: Acetaminophen 500 MG Tablet 1000 MG PO ×2 (06:01→11:29)
[2021-08-23] MEDS: Levothyroxine 150 MCG Tablet PO (06:01)
[2021-08-23 06:21] LABS: Hematocrit 31.7 % (37-47); Hemoglobin 10.3 g/dL (12.0-15.0); Mean Corp Hgb Conc 32.5 g/dL (32-36); Mean Corpuscular Volume 89.3 fL (81-99); Mean Platelet Vol. 10.5 fl (6.2-12.0); Platelet Count 142 K/mm3 (150-450); RBC Distribution Width SD 45.2 fl (35.1-43.9); Red Blood Count 3.55 M/mm3 (4.2-5.4)
[2021-08-23 06:26] LABS: Bedside Glucose 83 mg/dL (74-106)
--- NOTE | 2021-08-23 07:54 | PCM.PN.OB ---
Subjective Subjective Patient doing well without complaints. Tolerating PO. Ambulating and voiding without difficulty. Feeding well. Denies chest pain, shortness of breath, calf pain/swelling, fevers, chills, lightheadedness. Objective Data Objective Data Vital Signs: Vital Signs Temp Pulse Resp BP Pulse Ox 97.2 F L 69 16 109/56 L 100 08/23/21 03:43 08/23/21 03:43 08/23/21 03:43 08/23/21 03:43 08/23/21 03:43 Oxygen Delivery Method Room Air Weight: 168 lb 4 oz Body Mass Index (BMI) 28.8 Intake & Output: Intake and Output for Last 24 Hours 08/21/21 08/22/21 08/23/21 23:59 23:59 23:59 Intake Total 3504.17 / 3504.17 Output Total 600 / 600 375 / 375 Balance 2904.17 / 2904.17 -375 / -375 Lab / Micro Data Result Diagrams: 08/23/21 06:10 Labs: Laboratory Results - last 24 hr 08/22/21 09:58: POC Glucose 104 08/23/21 06:10: WBC 8.0, RBC 3.55 L, Hgb 10.3 L, Hct 31.7 L, MCV 89.3, MCH 29.0, MCHC 32.5, RDW Std Deviation 45.2 H, RDW Coeff of Shantel 14.0, Plt Count 142 L, MPV 10.5 08/23/21 06:17: POC Glucose 83 Micro: Microbiology 08/22/21 05:40 Nasal Secretion SARS-CoV-2 Antigen (Rapid) - Final Physical Exam Const alert and oriented x3 HEENT normocephalic Eyes PERRL Neck full ROM Resp normal respiratory effort GI soft to palpation GI Narrative: FF below U. 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 (3) Gestational diabetes: QUALIFIERS: Gestational diabetes mellitus control: diet-controlled Trimester: third trimester Qualified Code(s): O24.410 - Gestational diabetes mellitus in , diet controlled COMMENT: diet controlled. PLAN: s/p LTCS PPD # 1 1. routine post care 2. breast feeding- support given 3. rh positive 4. rubella immune 5.glucose wnl 6. anxiety stable 7. home today
[2021-08-23 09:08] VITALS: BP 107/64; PULSE 71; RESP 16; TEMP 36.3; O2SAT 98
[2021-08-23] MEDS: Cephalexin 500 MG Capsule PO (10:32)
[2021-08-23] MEDS: Sertraline 50 MG Tablet 25 MG PO (10:33)
[2021-08-23] MEDS: Ibuprofen 600 MG Tablet PO (11:29)
== END 2021-08-23 12:05 | disposition home or self-care (01) | DRG 788 ==
PROVIDERS: Admitting Provider Obstetrics & Gynecology; PCP Family Medicine; Referring Provider Obstetrics & Gynecology; Visit Provider Obstetrics & Gynecology
PROC: 10D00Z1 Extraction of Products of Conception, Low, Open Approach (ICD-10-PCS; CPT 59514; principal; 2021-08-22 07:15)
DX: O34.219 Maternal care for unspecified type scar from previous cesarean delivery (principal); O24.410 Gestational diabetes mellitus in pregnancy, diet controlled; D64.9 Anemia, unspecified; E03.9 Hypothyroidism, unspecified; F41.9 Anxiety disorder, unspecified; O99.284 Endocrine, nutritional and metabolic diseases 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 childbirth; O99.344 Other mental disorders 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 childbirth; O99.02 Anemia complicating childbirth; Z3A.39 39 weeks gestation of pregnancy; Z37.0 Single live birth; Z87.440 Personal history of urinary (tract) infections; Z79.899 Other long term (current) drug therapy
CPT/HCPCS: 59050; 82962; 85025; 85027; 86850; 86900; 86901; 87426; 99218; J7120; A4216; G0378; J2405

== ENCOUNTER → 2021-10-06 | Outpatient (CLI) | payer OTHER, SELFPAY ==
[2021-10-06 16:55] LABS: T4 Free Direct 1.31 ng/dL (0.76-1.46); Thyroid Stim Hormone (TSH) 0.31 uIU/mL (0.358-3.74)
== END | disposition home or self-care (01) ==
LOC: PAVLAB 15:37
PROVIDERS: PCP Family Medicine; Referring Provider Obstetrics & Gynecology; Visit Provider Obstetrics & Gynecology
DX: E03.9 Hypothyroidism, unspecified (principal)
CPT/HCPCS: 36415; 84439; 84443

== ENCOUNTER → 2023-07-14 | Outpatient (CLI) | payer OTHER, SELFPAY ==
--- OUTSIDE RECORDS SUMMARY | 2023-07-14 11:05 | XMS RPT_ITS | CCD ---
Author Name Unknown Address [address] [place] [address] Organization [facility] Care Team Providers Care Polygraph Examiner Name Role Phone Unavailable Primary Care Provider Unavailabl e Pending Provider Unavailable Unavailable Update Needed Unavailable Unavailable Unknown, Referring Provider Unavailable Unav ailable Maria De Jesus DORSEY, Brendon Mullins Primary Care Provider Maria De Jesus DORSEY, Brendon Mullins Primary Care Provider Maria eD Jesus DORSEY, Brendon Mullins Primary Care Provider Maria De Jesus DORSEY, Brendon Mullins Primary Care Provider GENET DENTON Referring Unavailable MARIA DE JESUS, BRENDON A Primary Care Unavailable QUEENER, GENET Referring Unavailable MARIA DE JESUS, BRENDON A Primary Care Unavailable QUEENER, GENET Referring Unavailable MARIA DE JESUS, BRENDON A Primary Care Unavailable MARIA DE JESUS, BRENDON A Primary Care Unavailable QUEENER, GENET Referring Unavailable QUEENER, GENET Referring Unavailable MARIA DE JESUS, BRENDON A Primary Care Unavailable PHU LOCKHART Referring Unavailable MARIA DE JESUS, BRENDON A Primary Care Unavailable MARIA DE JESUS, BRENDON A Referring Unavailable MARIA DE JESUS, BRENDON A Primary Care Unavailable MARIA DE JESUS, BRENDON A Primary Care Unavailable MARIA DE JESUS, BRENDON A Referring Unavailable MARIA DE JESUS, BRENDON A Primary Care Unavailable QUEENER, GENET Referring Unavailable QUEENER, GENET Attending Unavailable MARIA DE JESUS, BRENDON A Primary Care Unavailable KNOBLE, ANDREIA Referring Unavailable MARIA DE JESUS, BRENDON A Primary Care Unavailable KNOBLE, ANDREIA Referring Unavailable MARIA DE JESUS, BRENDON A Primary Care Unavailable KNOBLE, ANDREIA Attending Unavailable MARIA DE JESUS, BRENDON A Primary Care Unavailable MARIA DE JESUS, BRENDON A Attending Unavailable MARIA DE JESUS, BRENDON A Primary Care Unavailable MARIA DE JESUS, BRENDON A Primary Care Unavailable MARIA DE JESUS, BRENDON A Attending Unavailable MARIA DE JESUS, BRENDON A Primary Care Unavailable ER, GENET Referring Unavailable Allergies Allergy Classification Reported Allergen(s) Allergy Type Date of Onset Reaction(s) Facility (18 sources) NITROFURANTOIN, MACROCRYSTALS / Nitrofurantoin, Monohydrate; Translations: [NITROFURANTOIN MONOHYD/M-CRYST] Drug Allergy 3 Other: See Comments [facility] Work Phone: Medications Current Medications Medication Drug Class(es) Dates Sig (Normalized) Sig (Original) acetaminophen 325 mg oral tablet (1 source) Start: 01-11-2019 take 325 mg by mouth every four hours 325 mg, Oral, EVERY 4 HOURS, First dose on 01/11/19 at 0130 Maximum dose of acetaminophen is 4000 mg from all sources in 24 hours. cefadroxil 500 mg oral capsule (2 sources) Cephalosporin Antibacterial Start: 06-29-2023 End: 07-13-2023 take 1 capsule by mouth twice daily cefADROxil (DURICEF) 500 mg capsule Take 1 capsule by mouth two times a day for 14 days. 28 capsule 0 06/29/2023 07/13/2023 Active Completed/Discontinued Medications Medication Drug Class(es) Dates Sig (Normalized) Sig (Original) calcium chloride 0.0014 meq/ml / potassium chloride 0.004 meq/ml / sodium chloride 0.103 meq/ml / sodium lactate 0.028 meq/ml injectable solution (1 source) Start: 01-10-2019 End: 01-10-2019 1,000 mL, Intravenous, at 1,000 mL/hr, Administer over 1 Hours, ONCE, Sun01/10/19 at 1630, For 1 dose Labor and Delivery. &nb sp;Administer bolus one hour prior to surgery. Pre-op (day of surgery) cetirizine hydrochloride 10 mg oral tablet (14 sources) Histamine-1 Receptor Antagonist Start: 05-29-2022 End: 02-01-2023 take 1 tablet by mouth once daily cetirizine (ZYRTEC) 10 mg tablet Take 1 tablet by mouth once daily. 30 tablet 0 05/29/2022 02/01/2023 Discontinued Problems Active Problems Problem Classification Problem Date Documented Date Episodic/Chronic Allergic reactions (1 source) Urticaria; Translations: [Urticaria, unspecified] Episodic Anxiety disorders (20 sources) Anxiety; Translations: [Anxiety disorder, unspecified] Onset: 04-20-2014 06-15-2014 Chronic Genitourinary symptoms and ill-defined conditions (2 sources) Dysuria; Translations: [Dysuria] Episodic Immunizations and screening for infectious disease (1 source) Contact with and (suspected) exposure to other viral communicable diseases; Translations: [Exposure to COVID-19 virus] Episodic Other complications of (2 sources) Disorder of ; Translations: [ affected by growth restriction] Onset: 01-10-2019 01-10-2019 Episodic Other hereditary and degenerative nervous system conditions (1 source) Blepharospasm; 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-2022 Chronic Other nervous system disorders (2 sources) Demyelinating disease of central nervous system; Translations: [Demyelinating disease of central nervous system, unspecified] 12-21-2022 Chronic Other nervous system disorders (1 source) Demyelinating disease of central nervous system, unspecified; Translations: [Demyelinating disease of central nervous system (HCC)] Onset: 12-21-2022 Chronic Other skin disorders (1 source) Eruption; Translations: [Rash and other nonspecific skin eruption] Episodic Other upper respiratory infections (1 source) Bacterial sinusitis; Translations: [Chronic sinusitis, unspecified] 06-29-2023 Chronic Other upper respiratory infections (2 sources) Sore throat symptom; Translations: [Acute pharyngitis] Episodic Residual codes; unclassified (20 sources) Restlessness and agitation; Translations: [Restlessness and agitation] Onset: 09-18-2019 09-18-2019 Chronic Residual codes; unclassified (1 source) Restlessness and agitation; Translations: [Agitation] Onset: 09-18-2019 Chronic Thyroid disorders (20 sources) Acquired hypothyroidism; Translations: [Hypothyroidism, unspecified] Onset: 12-17-2014 Chronic Urinary tract infections (2 sources) Acute lower urinary tract infection; Translations: [Acute cystitis] Episodic Past or Other Problems Problem Classification Problem Date Documented Da te Episodic/Chronic Headache; including migraine (6 sources) Cervicogenic headache; Translations: [Cervicogenic headache] Onset: 12-04-2022 11-21-2022 Episodic Other aftercare (1 source) Other continuous churn buttermaker (current) drug therapy; Translations: [Medication management] Onset: 01-18-2022 Episodic Other screening for suspected conditions (not mental disorders or infectious disease) (20 sources) Patient encounter status; Translations: [Encounter for screening for diabetes mellitus] Onset: 02-01-2016 02-01-2016 Episodic Spondylosis; intervertebral disc disorders; other back problems (1 source) Torticollis; Translations: [Neck stiffness] Onset: 10-13-2022 Episodic NEGATED: Highlighted row has not occurred!Residual codes; unclassified (4 sources) Disease Episodic Results Test Name Value Interpretation Reference Range Facil ity Vital Signs Date Time Vital Sign Value Performing Clinician Facility 06-29-2023 09:40-0500 Body weight 69.4 kg Brendon Pretty MD Work Phone: [facility] 06-29-2023 09:40-0500 Diastolic blood pressure 74 mm[Hg] Brendon Pretty MD Work Phone: [facility] 06-29-2023 09:40-0500 Heart rate 70 /min Brendon Pretty MD Work Phone: [facility] 06-29-2023 09:40-0500 Respiratory rate 16 /min Brendon Pretty MD Work Phone: [facility] 06-29-2023 09:40-0500 SaO2% (BldA) [Mass fraction] 99 % Brendon Pretty MD Work Phone: [facility] 06-29-2023 09:40-0500 Systolic blood pressure 112 mm[Hg] Brendon Pretty MD Work Phone: [facility] 05-29-2022 10:00-0500 Body weight 66.68 kg Phu Lockhart PA-C Work Phone: [facility] 05-29-2022 10:00-0500 Diastolic blood pressure 80 mm[Hg] Phu Lockhart PA-C Work Phone: [facility] 05-29-2022 10:00-0500 Heart rate 89 /min Phu Lockhart PA-C Work Phone: [facility] 05-29-2022 10:00-0500 Respiratory rate 16 /min Phu Lockhart PA-C Work Phone: [facility] 05-29-2022 10:00-0500 SaO2% (BldA) [Mass fraction] 97 % Phu GRUBBS-C Work Phone: [facility] 05-29-2022 10:00-0500 Systolic blood pressure 118 mm[Hg] Phu Lockhart PA-C Work Phone: [facility] 04-03-2022 13:46-0500 Body height 162.6 cm Michele Leona CUSTOMER CARE ASSOCIATE.LEGISLATIVE DIRECTOR Work Phone: [facility] 04-03-2022 13:46-0500 Body temperature 98.49 [degF] Michele Leona CUSTOMER CARE ASSOCIATE.LEGISLATIVE DIRECTOR Work Phone: [facility] 04-03-2022 13:46-0500 Body weight 64.86 kg Michele Leona CUSTOMER CARE ASSOCIATE.LEGISLATIVE DIRECTOR Work Phone: [facility] 04-03-2022 13:46-0500 Diastolic blood pressure 61 mm[Hg] Michele Leona CUSTOMER CARE ASSOCIATE.LEGISLATIVE DIRECTOR Work Phone: [facility] 04-03-2022 13:46-0500 Heart rate 91 /min Michele Leona CUSTOMER CARE ASSOCIATE.LEGISLATIVE DIRECTOR Work Phone: [facility] 04-03-2022 13:46-0500 Respiratory rate 16 /min Michele Leona CUSTOMER CARE ASSOCIATE.LEGISLATIVE DIRECTOR Work Phone: [facility] 04-03-2022 13:46-0500 SaO2% (BldA) [Mass fraction] 100 % Michele Leona CUSTOMER CARE ASSOCIATE.LEGISLATIVE DIRECTOR Work Phone: [facility] 04-03-2022 13:46-0500 Systolic blood pressure 108 mm[Hg] Michele Leona CUSTOMER CARE ASSOCIATE.LEGISLATIVE DIRECTOR Work Phone: [facility] 02-01-2022 12:00-0400 Body height 160.5 cm Phu GRUBBS-C Work Phone: [facility] 02-01-2022 12:00-0400 Body temperature 97.7 [degF] Phu Lockhart PA-C Work Phone: [facility] 02-01-2022 12:00-0400 Body weight 64.41 kg Phu Lockhart PA-C Work Phone: [facility] 02-01-2022 12:00-0400 Diastolic blood pressure 68 mm[Hg] Phu Lockhart PA-C Work Phone: [facility] 02-01-2022 12:00-0400 Heart rate 72 /min Phu Lockhart PA-C Work Phone: [facility] 02-01-2022 12:00-0400 Respiratory rate 16 /min Phu Lockhart PA-C Work Phone: [facility] 02-01-2022 12:00-0400 Systolic blood pressure 102 mm[Hg] Phu Lockhart PA-C Work Phone: [facility] 12-14-2021 17:28-0400 Body temperature 97.11 [degF] Shravan aMrtin CUSTOMER CARE ASSOCIATE.LEGISLATIVE DIRECTOR Work Phone: [facility] 12-14-2021 17:28-0400 Body weight 65.68 kg Shravan Martin CUSTOMER CARE ASSOCIATE.LEGISLATIVE DIRECTOR Work Phone: [facility] 12-14-2021 17:28-0400 Diastolic blood pressure 70 mm[Hg] Shravan Mario CUSTOMER CARE ASSOCIATE.LEGISLATIVE DIRECTOR Work Phone: [facility] 12-14-2021 17:28-0400 Heart rate 70 /min Shravan Mario CUSTOMER CARE ASSOCIATE.LEGISLATIVE DIRECTOR Work Phone: [facility] 12-14-2021 17:28-0400 Respiratory rate 21 /min Shravan Mario CUSTOMER CARE ASSOCIATE.LEGISLATIVE DIRECTOR Work Phone: [facility] 12-14-2021 17:28-0400 SaO2% (BldA) [Mass fraction] 98 % Shravan Mario CUSTOMER CARE ASSOCIATE.LEGISLATIVE DIRECTOR Work Phone: [facility] 12-14-2021 17:28-0400 Systolic blood pressure 118 mm[Hg] Shravan Mario CUSTOMER CARE ASSOCIATE.LEGISLATIVE DIRECTOR Work Phone: [facility] 05-04-2020 16:43-0500 BMI (Body Mass Index) 22.6 kg/m2 Ruben Carvalho [facility] Work Phone: 05-04-2020 16:43-0500 Body Temperature 98 [degF] Ruben Carvalho [facility] Work Phone: 05-04-2020 16:43-0500 Body weight 63.5 kg Ruben Carvalho [facility] Work Phone: 05-04-2020 16:43-0500 BP Diastolic 82 mm[Hg] Ruben Carvalho [facility] Work Phone: 05-04-2020 16:43-0500 BP Systolic 118 mm[Hg] Ruben Carvalho [facility] Work Phone: 05-04-2020 16:43-0500 BSA (Body Surface Area) 1.72 m2 Ruben Carvalho [facility] Work Phone: 05-04-2020 16:43-0500 Height 167.64 cm Ruben Cavralho [facility] Work Phone: 05-04-2020 16:43-0500 Pulse (Heart Rate) 75 /min Ruben Carvalho [facility] Work Phone: 05-04-2020 16:43-0500 Pulse Oximetry 98 % Ruben Carvalho [facility] Work Phone: 05-04-2020 16:43-0500 Respiratory Rate 17 /min Ruben Carvalho [facility] Work Phone: 01-13-2019 08:06-0400 Body Temperature 97.59 [degF] Lavonne Rodriguez-[facility], [place] 01-13-2019 08:06-0400 BP Diastolic 67 mm[Hg] [facility] [place] 01-13-2019 08:06-0400 BP Systolic 117 mm[Hg] [facility] [place] 01-13-2019 08:06-0400 Pulse (Heart Rate) 68 /min [facility] [place] 01-13-2019 08:06-0400 Pulse Oximetry 97 % [facility] [place] 01-13-2019 08:06-0400 Respiratory Rate 18 /min [facility] [place] 01-10-2019 15:15-0400 BMI (Body Mass Index) 30.21 kg/m2 [facility] [place] [place] 01-10-2019 15:15-0400 Body weight 79.83 kg [facility] [place] [place] 01-10-2019 15:15-0400 Height 162.6 cm [facility] [place], [place] Encounters Encounter Date Encounter Type Care Provider Facility Start: 06-29-2023 End: 06-29-2023 ambulatory BRENDON PRETTY Facility:[facility] Start: 06-29-2023 End: 06-29-2023 Patient encounter procedure Brendon Pretty MD Work Phone: [facility] Procedures Date Procedure Procedure Detail Performing Clinician Start: 12-21-2022 Mri brain brain stem w/o w/contrast material Genet Denton PA-C Work Phone: Start: 04-03-2022 End: 04-03-2022 Urnls dip stick/tablet rgnt auto w/o microscopy [facility] Provider Start: 05-04-2020 Follow-up visit Start: 02-05-2020 Follow-up visit Start: 06-26-2019 Follow-up visit Start: 01-11-2019 Assay of thyroid stimulating hormone tsh Aden Amin Work Phone: Start: 01-11-2019 Blood count hemoglobin Aden Amin Work Phone: Start: 01-10-2019 ADD ON LAB TEST [facility] Start: 01-10-2019 Blood count complete automated Aden Amin Work Phone: Start: 01-10-2019 Blood typing serologic abo Aden Amin Work Phone: Start: 07-25-2018 ABO, EXTERNAL RESULT [facility] Provider Start: 07-25-2018 C. TRACHOMATIS, EXTE RNAL RESULT Historical Provider Start: 07-25-2018 GBS, EXTERNAL RESULT [facility] Provider Start: 07-25-2018 HEPATITIS B, EXTERNA L RESULT Historical Provider Start: 07-25-2018 HEPATITIS C ANTIBODY , EXTERNAL RESULT Historical Provider Start: 07-25-2018 HIV, EXTERNAL RESULT [facility] Provider Start: 07-25-2018 N. GONORRHOEAE, EXTE RNAL RESULT Historical Provider Start: 07-25-2018 RPR, EXTERNAL RESULT [facility] Provider Start: 07-25-2018 RUBELLA TITER, EXTER NAL RESULT Historical Provider Plan of Treatment Date Care Activity Detail Author Start: 06-10-2031 Urine microalbumin profile [facility] Start: 02-05-2027 DTaP/Tdap/Td vaccine (3 - Td) DTaP/Tdap/Td vaccine (3 - Td) [place] Start: 02-05-2027 Urine microalbumin profile DTA P,TDAP,TD (3 - Td or Tdap) [facility] Start: 12-15-2025 HPV TESTING HPV TESTING [facility] Start: 12-15-2025 PAP TESTING PAP TESTING [facility] Start: 12-15-2025 Screening for malign ant neoplasm of cervix [facility] Start: 06-29-2024 Annual PCP Team Dietary Manager magalie Disease Visit Annual PCP Team Chronic Disease Visit [facility] Start: 02-02-2024 Annual PCP Team Dietary Manager magalie Disease Visit Annual PCP Team Chronic Disease Visit [facility] Start: 02-02-2024 Covid-19 Vaccine (#1) Covid-19 Vaccine (#1) [facility] Immunizations Immunization Date Immunization Notes Care Provider Mey rubin 02-01-2023 influenza, injectabl e, quadrivalent, contains preservative Brendon Pretty MD Work Phone: [facility] 06-10-2021 tetanus toxoid, redu maricel diphtheria toxoid, and acellular pertussis vaccine, adsorbed Phu Lockhart PA-C Work Phone: [facility] 01-31-2021 influenza, injectabl e, quadrivalent, contains preservative Brendon Pretty MD Work Phone: [facility] 01-31-2021 influenza virus vaccine, unspecified formulation Brendon Pretty MD Work Phone: [facility] 01-29-2020 influenza, injectabl e, quadrivalent, contains preservative Brendon Pretty MD Work Phone: [facility] 01-13-2019 measles, mumps and rubella virus vaccine [facility] 01-11-2019 influenza, injectabl e, quadrivalent, preservative free [facility], [place] 01-11-2019 influenza quadrivale nt split vaccine (FLUZONE;FLUARIX;FLULAV AL;AFLURIA) injection 0.5 mL [facility], [place] 01-11-2019 diphtheria, tetanus toxoids and acellular pertussis vaccine, unspecified formulation [facility], [place] 01-11-2019 measles, mumps and rubella virus vaccine [facility], [place] 11-28-2018 tetanus toxoid, redu maricel diphtheria toxoid, and acellular pertussis vaccine, adsorbed Phu Lockhart PA-C Work Phone: [facility] 04-04-2017 influenza, seasonal, injectable Brendon Pretty MD Work Phone: [facility] 02-05-2017 tetanus toxoid, redu maricel diphtheria toxoid, and acellular pertussis vaccine, adsorbed Brendon Pretty MD Work Phone: [facility] 04-20-2014 tetanus toxoid, redu maricel diphtheria toxoid, and acellular pertussis vaccine, adsorbed Brendon Pretty MD Work Phone: [facility] 09-13-2006 meningococcal polysaccharide (groups A, C, Y and W-135) diphtheria toxoid conjugate vaccine (MCV4P) Phu Lockhart PA-C Work Phone: [facility] NEGATED: Highlighted row has not occurred!01-13-2019 tetanus toxoid, reduced diphtheria toxoid, and acellular pertussis vaccine, adsorbed [place] Payers Date Payer Category Payer Private Health Insurance [facility] [employer] [id number] 2019-Present [phone] [address] [address] [place] [address] HMO [id number] 2019 Private Health Insurance [facility] [employer] [id number] 2019-Present [phone] [address] [address] [place] [address] HMO [id number] 2019 Unknown [id number] Social History Date Type Detail Facility Start: 01-10-2019 Tobacco smoking status NEIS Unknown if ever smoked [place], [place] Start: 01-10-2019 End: 10-13-2022 Alcohol intake Never [facility] Start: 01-10-2019 End: 05-29-2022 History SDOH Alcohol Frequency 1 [place], [place] Sex Assigned At Not on file [place] Start: 04-20-2014 End: 12-14-2021 Tobacco smoking status NEIS Never smoked tobacco [facility] Start: 04-20-2014 End: 12-14-2021 Tobacco use and exposure Smokeless tobacco non-user [facility] Start: 06-17-2021 End: 06-29-2023 Alcohol intake Current drinker of alcohol (finding) [facility] Start: 01-31-2021 End: 05-29-2022 History SDOH Alcohol Frequency 2 [facility] Start: 04-20-2014 History SDOH Alcohol Comment occasional wine [facility] Start: 01-31-2021 End: 05-29-2022 History SDOH Social Connections Yazdanism 3 [facility] Start: 01-31-2021 History SDOH Physical Activity MPS 6 [facility] Start: 01-31-2021 End: 02-01-2022 History SDOH Financial 5 [facility] Start: 09-04-2019 Education 17 [facility] Start: 1990 Sex Assigned At Female [facility] Work Phone: Start: 11-05-2021 End: 04-03-2022 Exposure to SARS-CoV-2 (event) Not sure [facility] Start: 02-01-2022 End: 05-29-2022 History SDOH Financial 4 [facility] Start: 05-28-2022 End: 10-13-2022 History of Social function [facility] Do you belong to any clubs or organizations such as taoism groups, [employer], [employer] or athletic groups, or school groups? No [facility] Are you now , , , , never or living with a partner? [facility] How often to you hav e a drink containing alcohol? Monthly or less [facility] How many standard dr inks containing alcohol do you have on a typical day? 1 or 2 [facility] How often do you hav e 6 or more drinks on 1 occasion? Never [facility] How hard is it for y ou to pay for the very basics like food, housing, medical care, and heating Not very hard [facility] Adult Depression Screening Assessment 0 [facility] Work Phone: Do you feel stress - tense, restless, nervous, or anxious, or unable to sleep at night because your mind is troubled all the time - these days [OSQ] Only a little [facility] (I/We) worried wheth er (my/our) food would run out before (I/we) got money to buy more. Never true [facility] Start: 01-29-2020 Gender identity Identifies as female gender (finding) [facility] Work Phone: Start: 01-29-2020 Sexual orientation Heterosexual (finding) [facility] Work Phone: Do you belong to any clubs or organizations such as taoism groups, [employer], [employer] or athletic groups, or school groups? Yes [facility] Functional Status Date Assessment Result Facility NEGATED: Highlighted row Functional performance Functional status health issues are not documented Disease [facility] Work Phone: Mental Status Date Assessment Result Facility NEGATED: Highlighted row Cognitive function [Interpretation] Cognitive status health issues are not documented Disease [facility] Work Phone: Clinical Notes 12-14-2021 to 06-29-2023 Brendon Pretty MD - 06/29/2023 9:52 AM ESTTelephone Encounter - Grady Reyes CHANTELLE - 01/22/2023 1:13 PM EDTTelephone Encounter - Brendon Prtety MD - 01/20/2023 4:00 PM EDTPatient Instructions Note Date & Type Note Facility 06-29-2023 Note HNO ID: [id number] Author: BRENDON PRETTY MD Service: ? Author Type: Physician Type: Progress Notes Filed: 06/29/2023 12:16 Note Text: Chief Complaint Patient presents with: Acute Visit: L ear pain/sinus pressure and pressure in both ears; treated for sinus infection in April; has not been getting any better; using Neti pot HPI Mimi Phan Christina Reno is a 33 year old female who presents here today for Above Complaints.. As above. No fevers. Maxillary sinuses are tender. Has dark yellow nasal drainage with some blood. No post nasal drainage, sore throat or cough. No shortness of breath or wheezing. Slight nausea. No vomiting or significant diarrhea. Is currently . Past medical history, appointments, medications, allergies reviewed. Previous Medical History PAST MEDICAL HISTORY Diagnosis Date Acquired hypothyroidism 12/17/2014 Hoshimoto's Anxiety 04/20/2014 Well adult exam 04/20/2014 Last done: 01/02/2019 Previous Surgical History PAST SURGICAL HISTORY Procedure Laterality Date SECTION HX N/A 2016 and 2021 PAST SURGICAL HISTORY OF 2005 laser surgery on bilater feet to remove warts Family History FAMILY HISTORY Adopted: Yes Problem Relation Age of Onset Diabetes Father Hypertension Father Diabetes Paternal Grandmother Hypertension Paternal Grandmother Diabetes Paternal Grandfather Coronary Artery Disease Paternal Grandfather over 50 Hypertension Paternal Grandfather Thyroid Paternal Uncle Seizures Mother epiletic No Known Problems Sister No Known Problems Brother No Known Problems Sister No Known Problems Brother No Known Problems Brother No Known Problems Brother No Known Problems Son No Known Problems Daughter Patient Allergies ALLERGIES Allergen Reactions Macrobid [Nitrofura* Other: See Comments Possible urticaria. (Started shortly after finishing antibiotic) Current Medications Current Outpatient Medications on File Prior to Visit Medication Sig levothyroxine (LEVOXYL) 150 mcg tablet Take 1 tablet by mouth once daily. Take on empty stomach. For Thyroid. sertraline (ZOLOFT) 25 mg tablet Take 1 tablet by mouth once daily. No current facility-administered medications on file prior to visit. Social History Social History Tobacco Use Smoking status: Never Smokeless tobacco: Never Vaping Use Vaping Use: Never used Substance Use Topics Alcohol use: Yes Comment: occasional wine Drug use: No Review of Symptoms REVIEW OF SYSTEMS See HPI EXAM: BP 112/74 Pulse 70 Resp 16 Wt 69.4 kg (153 lb) LMP 05/24/2023 (Exact Date) SpO2 99% BMI 26.47 kg/m? General Appearance: Well appearing, alert, in no acute distress, well-hydrated, well nourished.. Head: Normocephalic, no masses, lesions, tenderness or abnormalities. Eyes: Anicteric sclera. Pupils are equally round and reactive to light. Extraocular movements are intact. . Ears: External ears normal, canals clear, Negative findings: external ears normal to inspection and palpation, Left tympanic membrane normal. Mobility is good, Right tympanic membrane normal. Mobility is good, Left tympanic color is jhaveri, Right tympanic color is jhaveri, normal light reflex. Nose/Sinuses: Nares normal, septum midline, mucosa normal, no drainage. Has maxillary sinus tenderness. Oropharynx: Lips, mucosa, and tongue normal, teeth and gums normal, oropharynx normal. Neck: Supple, no adenopathy; thyroid symmetric, normal size, no bruits. Lungs: Lungs clear to auscultation. No wheezing, rhonchi, rales.. Heart: RRR without murmur, gallop, or rubs. No ectopy. Abdomen: Normal abdominal exam, Abdomen soft, non-tender. Bowel sounds normal. No masses, organomegaly. Health Maintenance List Depression Assessment due on 05/07/2023 Covid-19 Vaccine(1) due on 02/02/2024 Annual PCP Team Chronic Disease Visit due on 02/02/2024 Pap Testing due on 12/15/2025 HPV Testing due on 12/15/2025 DTaP,Tdap,Td Vaccine(5 - Td or Tdap) due on 06/10/2031 Influenza Vaccine Completed Hepatitis C Screening Completed HPV Vaccine Aged Out HIV Screening Discontinued Data reviewed A/P ASSESSMENT/PLAN: 1. Bacterial sinusitis - ICD9: 473.9, 041.9, ICD10: J32.9, B96.89 - Will begin treatment with as per antibiotic as written, see orders - Supportive care with plenty of fluids, rest, and analgesia prn. Also advised on use of Flonase. Requested Prescriptions Signed Prescriptions Disp Refills cefADROxil (DURICEF) 500 mg capsule 28 capsule 0 Sig: Take 1 capsule by mouth two times a day for 14 days. F/u if not resolving Brendon Pretty MD [facility] 06-29-2023 History of Presen t illness Narrative Chief Complaint Patient presents with: Acute Visit: L ear pain/sinus pressure and pressure in both ears; treated for sinus infection in April; has not been getting any better; using Neti pot HPI Mimi Reno is a 33 year old female who presents here today for Above Complaints.. As above. No fevers. Maxillary sinuses are tender. Has dark yellow nasal drainage with some blood. No post nasal drainage, sore throat or cough. No shortness of breath or wheezing. Slight nausea. No vomiting or significant diarrhea. Is currently . Past medical history, appointments, medications, allergies reviewed. Previous Medical History PAST MEDICAL HISTORY Diagnosis Date Acquired hypothyroidism 12/17/2014 Hoshimoto's Anxiety 04/20/2014 Well adult exam 04/20/2014 Last done: 01/02/2019 Previous Surgical History PAST SURGICAL HISTORY Procedure Laterality Date SECTION HX N/A 2016 and 2021 PAST SURGICAL HISTORY OF 2005 laser surgery on bilater feet to remove warts Family History FAMILY HISTORY Adopted: Yes Problem Relation Age of Onset Diabetes Father Hypertension Father Diabetes Paternal Grandmother Hypertension Paternal Grandmother Diabetes Paternal Grandfather Coronary Artery Disease Paternal Grandfather over 50 Hypertension Paternal Grandfather Thyroid Paternal Uncle Seizures Mother epiletic No Known Problems Sister No Known Problems Brother No Known Problems Sister No Known Problems Brother No Known Problems Brother No Known Problems Brother No Known Problems Son No Known Problems Daughter Patient Allergies ALLERGIES Allergen Reactions Macrobid [Nitrofura* Other: See Comments Possible urticaria. (Started shortly after finishing antibiotic) Current Medications Current Outpatient Medications on File Prior to Visit Medication Sig levothyroxine (LEVOXYL) 150 mcg tablet Take 1 tablet by mouth once daily. Take on empty stomach. For Thyroid. sertraline (ZOLOFT) 25 mg tablet Take 1 tablet by mouth once daily. No current facility-administered medications on file prior to visit. Social History Social History Tobacco Use Smoking status: Never Smokeless tobacco: Never Vaping Use Vaping Use: Never used Substance Use Topics Alcohol use: Yes Comment: occasional wine Drug use: No Review of Symptoms REVIEW OF SYSTEMS See HPI EXAM: BP 112/74 Pulse 70 Resp 16 Wt 69.4 kg (153 lb) LMP 05/24/2023 (Exact Date) SpO2 99% BMI 26.47 kg/m General Appearance: Well appearing, alert, in no acute distress, well-hydrated, well nourished.. Head: Normocephalic, no masses, lesions, tenderness or abnormalities. Eyes: Anicteric sclera. Pupils are equally round and reactive to light. Extraocular movements are intact. . Ears: External ears normal, canals clear, Negative findings: external ears normal to inspection and palpation, Left tympanic membrane normal. Mobility is good, Right tympanic membrane normal. Mobility is good, Left tympanic color is jhaveri, Right tympanic color is jhaveri, normal light reflex. Nose/Sinuses: Nares normal, septum midline, mucosa normal, no drainage. Has maxillary sinus tenderness. Oropharynx: Lips, mucosa, and tongue normal, teeth and gums normal, oropharynx normal. Neck: Supple, no adenopathy; thyroid symmetric, normal size, no bruits. Lungs: Lungs clear to auscultation. No wheezing, rhonchi, rales.. Heart: RRR without murmur, gallop, or rubs. No ectopy. Abdomen: Normal abdominal exam, Abdomen soft, non-tender. Bowel sounds normal. No masses, organomegaly. Health Maintenance List Depression Assessment due on 05/07/2023 Covid-19 Vaccine(1) due on 02/02/2024 Annual PCP Team Chronic Disease Visit due on 02/02/2024 Pap Testing due on 12/15/2025 HPV Testing due on 12/15/2025 DTaP,Tdap,Td Vaccine(5 - Td or Tdap) due on 06/10/2031 Influenza Vaccine Completed Hepatitis C Screening Completed HPV Vaccine Aged Out HIV Screening Discontinued Data reviewed A/P ASSESSMENT/PLAN: 1. Bacterial sinusitis - ICD9: 473.9, 041.9, ICD10: J32.9, B96.89 - Will begin treatment with as per antibiotic as written, see orders - Supportive care with plenty of fluids, rest, and analgesia prn. Also advised on use of Flonase. Requested Prescriptions Signed Prescriptions Disp Refills cefADROxil (DURICEF) 500 mg capsule 28 capsule 0 Sig: Take 1 capsule by mouth two times a day for 14 days. F/u if not resolving Brendon Pretty MD documented in this encounter [facility] 05-04-2023 Note HNO ID: [id number] Author: Cande Wilkes PA Service: ? Author Type: Physician Crusher Loader Equipment Operator Type: Progress Notes Filed: 05/04/2023 12:51 PM Note Text: This note was created using [employer]. Subjective Mimimauri Reno is a 33 year old female. HPI 33-year-old female presents for cough, sinus pressure, sinus pain, sore throat, congestion x 1.5 weeks. Patient states she started getting congestion cough a little over a week ago. She now has sinus pain, sinus pressure. She states she has history of sinus infections. She has pressure and pain in her ears, sore throat. No fevers. No vomiting or diarrhea. Did a home COVID test that was negative. PAST MEDICAL HISTORY Diagnosis Date Acquired hypothyroidism 12/17/2014 Hoshimoto's Anxiety 04/20/2014 Well adult exam 04/20/2014 Last done: 01/02/2019 PAST SURGICAL HISTORY Procedure Laterality Date SECTION HX N/A 2016 and 2021 PAST SURGICAL HISTORY OF 2005 laser surgery on bilater feet to remove warts ALLERGIES Macrobid [Nitrofurantoin Monohyd/M-Cryst] MEDICATIONS sertraline (ZOLOFT) 25 mg tablet Take 1 tablet by mouth once daily. levothyroxine (SYNTHROID) 137 mcg tablet TAKE 1 TABLET BY MOUTH DAILY Sun-Sun and Two on Sunday amoxicillin-clavulanate potassium (AUGMENTIN) 875-125 mg per tablet Take 1 tablet by mouth two times a day for 5 days. FAMILY HISTORY Adopted: Yes Problem Relation Age of Onset Diabetes Father Hypertension Father Diabetes Paternal Grandmother Hypertension Paternal Grandmother Diabetes Paternal Grandfather Coronary Artery Disease Paternal Grandfather over 50 Hypertension Paternal Grandfather Thyroid Paternal Uncle Seizures Mother epiletic No Known Problems Sister No Known Problems Brother No Known Problems Sister No Known Problems Brother No Known Problems Brother No Known Problems Brother No Known Problems Son No Known Problems Daughter Social History Tobacco Use Smoking status: Never Smokeless tobacco: Never Vaping Use Vaping Use: Never used Substance Use Topics Alcohol use: Yes Comment: occasional wine Drug use: No Review of Systems Constitutional: Positive for fatigue. Negative for chills and fever. HENT: Positive for congestion, ear pain, sinus pressure, sinus pain and sore throat. Respiratory: Positive for cough. Negative for shortness of breath. Cardiovascular: Negative for chest pain. Gastrointestinal: Negative for diarrhea and vomiting. Objective BP 109/74 Pulse 70 Temp 36.7 ?C (98 ?F) Resp 18 Wt 68.9 kg (152 lb) LMP 04/23/2023 (Exact Date) SpO2 100% BMI 26.30 kg/m? Physical Exam Vitals and nursing note reviewed. Constitutional: General: She is not in acute distress. Appearance: Normal appearance. She is not toxic-appearing. HENT: Right Ear: Ear canal normal. A middle ear effusion is present. Left Ear: Ear canal normal. A middle ear effusion is present. Nose: Mucosal edema and congestion present. Right Sinus: Maxillary sinus tenderness present. Left Sinus: Maxillary sinus tenderness present. Mouth/Throat: Mouth: Mucous membranes are moist. Pharynx: No oropharyngeal exudate or posterior oropharyngeal erythema. Eyes: Conjunctiva/sclera: Conjunctivae normal. Cardiovascular: Rate and Rhythm: Normal rate and regular rhythm. Pulmonary: Effort: Pulmonary effort is normal. Breath sounds: Normal breath sounds. Neurological: Mental Status: She is alert. Assessment and Plan ASSESSMENT/PLAN: 1. Bacterial sinusitis - ICD9: 473.9, 041.9, ICD10: J32.9, B96.89 - Will begin treatment with Augmentin 875 mg PO BID for 5 days - The patient should also be given OTC decongestants prn for the first 5-7 days of treatment. Recommend Flonase. - Supportive care with plenty of fluids, rest, and analgesia prn. Diagnosis and treatment plan were discussed and questions were answered to the patient's satisfaction. Pt acknowledged understanding of concepts and follow up plan. Specific signs and symptoms that would indicate the need for higher level of care were discussed in detail warranting prompt ER evaluation. HUMERA Ca [facility] 02-01-2023 Note HNO ID: [id number] Author: Brendon Pretty MD Service: ? Author Type: Physician Type: Progress Notes Filed: 02/01/2023 4:58 PM Note Text: Chief Complaint Patient presents with: Physical HPI Mimi Reno is a 32 year old female who presents here today for Physical. No specific concerns today Patient with hx of anxiety, hypothyroid, and those as below. 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 Had MRI completed on 12/21/2022 which showed. No evidence of abnormal signal or enhancement in the brain or cervical spine to suggest demyelinating disease. She is scheduled to follow up in 3 months. Patient is not sure if she still needs this appointment since the MRI was normal. Patient also see Dr. Martin for gestional diabetes during . Past medical history, appointments, medications, allergies reviewed. Previous Medical History PAST MEDICAL HISTORY Diagnosis Date Acquired hypothyroidism 12/17/2014 Hoshimoto's Anxiety 04/20/2014 Well adult exam 04/20/2014 Last done: 01/02/2019 Previous Surgical History PAST SURGICAL HISTORY Procedure Laterality Date SECTION HX N/A 2016 and 2021 PAST SURGICAL HISTORY OF 2004 laser surgery on bilater feet to remove warts Family History FAMILY HISTORY Adopted: Yes Problem Relation Age of Onset Diabetes Father Hypertension Father Diabetes Paternal Grandmother Hypertension Paternal Grandmother Diabetes Paternal Grandfather Coronary Artery Disease Paternal Grandfather over 50 Hypertension Paternal Grandfather Thyroid Paternal Uncle Seizures Mother epiletic No Known Problems Sister No Known Problems Brother No Known Problems Sister No Known Problems Brother No Known Problems Brother No Known Problems Brother No Known Problems Son No Known Problems Daughter Patient Allergies ALLERGIES Allergen Reactions Macrobid [Nitrofura* Other: See Comments Possible urticaria. (Started shortly after finishing antibiotic) Current Medications Current Outpatient Medications on File Prior to Visit Medication Sig levothyroxine (SYNTHROID) 137 mcg tablet TAKE 1 TABLET BY MOUTH DAILY and Two on Sunday iv contrast (will be provided with radiology test) MRI CSP Inject, intravenously, once for 1 dose. No IV access, insert saline lock prior to the beginning of sedation, infusion, injection of imaging exam. Discontinue saline lock post exam. If Pt. has a central line or IVAD, may access for administration according to line specific nursing protocol. Once exam is complete flush line and de-access according to line specific nursing protocol in the MR contrast administration guidelines link. cetirizine (ZYRTEC) 10 mg tablet Take 1 tablet by mouth once daily. sertraline (ZOLOFT) 25 mg tablet Take 1 tablet by mouth once daily. vits15/iron/folic/dss ( AD ORAL) Take by mouth. No current facility-administered medications on file prior to visit. Social History Social History Tobacco Use Smoking status: Never Smokeless tobacco: Never Vaping Use Vaping Use: Never used Substance Use Topics Alcohol use: Yes Comment: occasional wine Drug use: No Review of Symptoms REVIEW OF SYSTEMS GENERAL: No weight loss, malaise or fevers HEENT: No changes in hearing or vision, no nose bleeds or other nasal problems. Gets muscle tension headache's in the back of her head. Her HEP has helped. NECK: Negative for lumps, goiter, pain and significant neck swelling RESPIRATORY: Negative for cough, hemoptysis, wheezing, COPD, dyspnea or shortness of breath CARDIOVASCULAR: Negative for chest pain, leg swelling, hypertension, CHF or palpitations GI: No nausea, vomiting, or diarrhea and No frequent heartburn or reflux symptoms : No history of dysuria, frequency or blood MUSCULOSKELETAL: Negative for joint pain or swelling, back pain or muscle pain SKIN: since having kids she has some red bumps on her left thigh near the hip. Not itchy. PSYCH: Negative for sleep disturbance, mood disorder and recent psychosocial stressors. Feels she is doing well on the zoloft HEMATOLOGY/LYMPHOLOGY: Negative for prolonged bleeding, bruising easily or swollen nodes ENDOCRINE: Negative for cold or heat intolerance, polyuria, polydipsia and goiter NEURO: No history of syncope, paralysis, seizures or tremors EXAM: BP 108/60 (BP Site: Left Arm, BP Position: Sitting, BP Cuff Size: Regular Adult) Pulse 60 Resp 16 Ht 161.9 cm (5' 3.75 ) Wt 68.9 kg (152 lb) LMP 02/01/2023 (Exact Date) BMI 26.30 kg/m? Last 5 Encounter Wt Readings: Date: Wt: 02/01/2023 68.9 kg (152 lb) 11/14/2022 67.6 kg (149 lb) 10/13/2022 68 kg (150 lb) 05/29/2022 66.7 kg (147 lb) 04/03/2022 64.9 kg (143 lb) General Appearance: Well appearing, alert, in no acute distress, well- (more content not included)... [facility] 01-22-2023 Miscellaneous Notes Pt notified of results/provider response. She verbalized understanding. Grady Reyes LPN Let patient know we will review her labs at her appt on 02/01/2023, however, her TSH is showing she is not getting enough levothyroxine and want to make a adjustment in her levothyroxine dosage. Stay with the 137 mcg tab but take one a day Sun-Sun and two on Sundays. A new script was sent in and an order to recheck her thyroid lab in 2 months was placed. The following approved medication requests have been transmitted electronically. Requested Prescriptions Signed Prescriptions Disp Refills levothyroxine (SYNTHROID) 137 mcg tablet 34 tablet 5 Sig: TAKE 1 TABLET BY MOUTH DAILY Sun-Sun and Two on Sunday Authorizing Provider: BRENDON PRETTY MD documented in this encounter [facility] 01-12-2023 Miscellaneous Notes Patient last visit 10/13/22 Follow up appointment scheduled 02/01/23 documented in this encounter [facility] 01-12-2023 Miscellaneous Notes Appointment 02/01. Idania May Ma documented in this encounter [facility] 12-28-2022 Note HNO ID: [id number] Author: Maryjo Chatman, PT Service: ? Author Type: Physical Therapist Type: Progress Notes Filed: 12/28/2022 6:25 PM Note Text: Episode Visit Count: 5 Therapist That Will Accept/Oversee The Plan Of Care: Zita Velasco Start of Care Date: 11/20/22 Onset Date: 09/20/22 Plan of Care Certification Date: 11/20/22 Next Certification Due Date: 01/19/23 Patient Identified by Name and Date of : Yes REHABILITATION AND SPORTS THERAPY PHYSICAL THERAPY DISCONTINUANCE OF CARE PLAN OF CARE UPDATE: Assessment: Mimi Vasquez Rowdy is discontinued from Physical Therapy services due to goal achievement and maximal benefit. and Patient/Clinician mutual decision to discontinue current plan of care.. Patient was seen for 5 visits from Start of Care Date: 11/20/22 to 12/28/2022 and treatment included: Therapeutic exercise, Manual therapy, Self-jail management, Patient/Family/Caregiver Education, and Body mechanics training. No specialty comments available. SUBJECTIVE: has a mild headache today but she's been busy today and hasn't done any exercises, otherwise it's been awhile since she's had a headache. also get occasional neck pain gilberto on R which she localizes to R UT AND medial scapula region. reports overall improvement with decreased intensity AND frequency of headaches. still gets intermittent neck tightness, says stretching/exercises and massages have helped. she's also been focusing more on her posture with computer work AND work out routines. had MRI last week which was good so that's a relief. thinks she's probably ready to be done with PT. Pain: Pain Pain Level: 3 Pain Location: Head - Right, Head - Left Description: Aching, Sore Frequency: Intermittent Pain Location 2: Neck - Right, Scapula - Right Description 2: Sore, Tightness PROMIS Scales Higher is Better 12/28/2022 11/19/2022 Phys Func - Score 53 (within normal limits) 53 (within normal limits) Phys Func - Percentile 62 % 62 % Self-Eff Symptom - Score 48 (Average) 43 (Average) Self-Eff Symptom - Percentile 42 % 24 % T-scores: mean of general population = 50. 5 points is clinically meaningfully difference Percentiles provide an indication of how the patient's score ranks in relation to the general population. Higher percentile rankings indicate better function/quality of life. 50th percentile is the average of the general population and indicates half of respondents had a worse score. OBJECTIVE MEASURES WITH LEVEL OF FUNCTION: Spine Observations R Cervical Spine Palpation Tenderness: Upper trapezius (Rhomboid) Sensation - Cervical Spine Cervical Spine Sensation: Grossly Intact, Comments Cervical Spine Sensation - Comments: pt denies any numbness or tingling in UEs Cervical Spine ROM Cervical Flexion AROM: Normal Cervical Extension AROM: Normal Cervical Side-Bend Right AROM: Normal Cervical Side-Bend Left AROM: Normal Cervical Rotation Right AROM: Normal, Increased pain (aggravates headache) Cervical Rotation Left AROM: Normal UE AROM R UE AROM: wnl AND painfree L UE AROM: wnl AND painfree UE and Cervical Strength R UE Strength: grossly 4+ to 5/5 t/o incl scap stabilizers, tmd teacher strength 65# L UE Strength: grossly 4+ to 5/5 including scap stabilizers, tmd teacher strength 55# TREATMENT: Therapeutic Exercise: 1: recheck - see objective section for details, discussed progress, plans for PT/DC 2: seated neck ROM all planes 3: reviewed stretches, HEP 4: *seated rhomboid stretch R/L (increased stretch R vs L) 5: *seated neck retraction AND extension Skilled Intervention: Patient was educated in proper exercise technique and purpose for exercises. Reviewed and educated patient on additions/changes for home exercise program as above (*). Skilled judgment was provided in selection of appropriate interventions. Correct performance of therapeutic exercises was facilitated with verbal, visual, and tactile cuing. Educated patient on rationale for performing exercises in regards to increase ease of ADL and ROM and function . Patient education as noted. Billing Therapeutic Exercise Treatment Minutes: 35 Total Treatment Time Minutes (timed/untimed): 35 Session Start Time : 1550 Session Stop Time : 1625 Maryjo Chatman, PT [facility] 12-28-2022 History of Presen t illness Narrative Episode Visit Count: 5 Therapist That Will Accept/Oversee The Plan Of Care: Zita Velasco Start of Care Date: 11/20/22 Onset Date: 09/20/22 Plan of Care Certification Date: 11/20/22 Next Certification Due Date: 01/19/23 Patient Identified by Name and Date of : Yes REHABILITATION AND SPORTS THERAPY PHYSICAL THERAPY DISCONTINUANCE OF CARE PLAN OF CARE UPDATE: Assessment: Mimi Reno is discontinued from Physical Therapy services due to goal achievement and maximal benefit. and Patient/Clinician mutual decision to discontinue current plan of care.. Patient was seen for 5 visits from Start of Care Date: 11/20/22 to 12/28/2022 and treatment included: Therapeutic exercise, Manual therapy, Self-jail management, Patient/Family/Caregiver Education, and Body mechanics training. No specialty comments available. SUBJECTIVE: has a mild headache today but she's been busy today and hasn't done any exercises, otherwise it's been awhile since she's had a headache. also get occasional neck pain gilberto on R which she localizes to R UT & medial scapula region. reports overall improvement with decreased intensity & frequency of headaches. still gets intermittent neck tightness, says stretching/exercises and massages have helped. she's also been focusing more on her posture with computer work & work out routines. had MRI last week which was good so that's a relief. thinks she's probably ready to be done with PT. Pain: Pain Pain Level: 3 Pain Location: Head - Right, Head - Left Description: Aching, Sore Frequency: Intermittent Pain Location 2: Neck - Right, Scapula - Right Description 2: Sore, Tightness PROMIS Scales Higher is Better 12/28/2022 11/19/2022 Phys Func - Score 53 (within normal limits) 53 (within normal limits) Phys Func - Percentile 62 % 62 % Self-Eff Symptom - Score 48 (Average) 43 (Average) Self-Eff Symptom - Percentile 42 % 24 % T-scores: mean of general population = 50. 5 points is clinically meaningfully difference Percentiles provide an indication of how the patient's score ranks in relation to the general population. Higher percentile rankings indicate better function/quality of life. 50th percentile is the average of the general population and indicates half of respondents had a worse score. OBJECTIVE MEASURES WITH LEVEL OF FUNCTION: Spine Observations R Cervical Spine Palpation Tenderness: Upper trapezius (Rhomboid) Sensation - Cervical Spine Cervical Spine Sensation: Grossly Intact, Comments Cervical Spine Sensation - Comments: pt denies any numbness or tingling in UEs Cervical Spine ROM Cervical Flexion AROM: Normal Cervical Extension AROM: Normal Cervical Side-Bend Right AROM: Normal Cervical Side-Bend Left AROM: Normal Cervical Rotation Right AROM: Normal, Increased pain (aggravates headache) Cervical Rotation Left AROM: Normal UE AROM R UE AROM: wnl & painfree L UE AROM: wnl & painfree UE and Cervical Strength R UE Strength: grossly 4+ to 5/5 t/o incl scap stabilizers, tmd teacher strength 65# L UE Strength: grossly 4+ to 5/5 including scap stabilizers, tmd teacher strength 55# TREATMENT: Therapeutic Exercise: 1: recheck - see objective section for details, discussed progress, plans for PT/DC 2: seated neck ROM all planes 3: reviewed stretches, HEP 4: *seated rhomboid stretch R/L (increased stretch R vs L) 5: *seated neck retraction & extension Skilled Intervention: Patient was educated in proper exercise technique and purpose for exercises. Reviewed and educated patient on additions/changes for home exercise program as above (*). Skilled judgment was provided in selection of appropriate interventions. Correct performance of therapeutic exercises was facilitated with verbal, visual, and tactile cuing. Educated patient on rationale for performing exercises in regards to increase ease of ADL and ROM and function . Patient education as noted. Billing Therapeutic Exercise Treatment Minutes: 35 Total Treatment Time Minutes (timed/untimed): 35 Session Start Time : 1550 Session Stop Time : 1625 Marjyo Chatman PT documented in this encounter [facility] 12-21-2022 Note HNO ID: [id number] Author: Masha Patrick RT(R) Service: ? Author Type: Technologist Type: Progress Notes Filed: 12/21/2022 1:41 PM Note Text: Radiology Service Progress Note DATE OF SERVICE: December 21, 2022 TIME: 1:41 PM PATIENT IDENTITY VERIFICATION COMPLETED USING TWO (2) STANDARD IDENTIFIERS: Name and Date of confirmed by patient verbally. FALL SCREENING: Has the patient had 2 falls in the last year or 1 fall with injury or currently using an Ambulatory Assistive Device (Walker, Cane, Wheelchair, Crutches, etc.)? No PATIENT GENDER DATA: Female. status: : No status: NO. PATIENT RELEVANT IMPLANT DATA REVIEWED: Yes ALLERGIES: Reviewed and unchanged CONTRAST ALLERGY: NO. EXAM: MRI - CONTRAST TYPE: GROUP II PERIPHERAL IV DATA: Ambulatory: A peripheral IV was started in the Right antecubital site with a Angio cath: 22 gauge. RADIOLOGY DEPARTMENT: MR; Exam(s) Completed: Head: Multiple Sclerosis Spine: Cervical spine SIGNATURE: RT Abdoul(R) [facility] DATE: December 21, 2022 TIME: 1:41 PM [facility] 12-21-2022 History of Presen t illness Narrative Radiology Service Progress Note DATE OF SERVICE: December 21, 2022 TIME: 1:41 PM PATIENT IDENTITY VERIFICATION COMPLETED USING TWO (2) STANDARD IDENTIFIERS: Name and Date of confirmed by patient verbally. FALL SCREENING: Has the patient had 2 falls in the last year or 1 fall with injury or currently using an Ambulatory Assistive Device (Walker, Cane, Wheelchair, Crutches, etc.)? No PATIENT GENDER DATA: Female. status: : No status: NO. PATIENT RELEVANT IMPLANT DATA REVIEWED: Yes ALLERGIES: Reviewed and unchanged CONTRAST ALLERGY: NO. EXAM: MRI - CONTRAST TYPE: GROUP II PERIPHERAL IV DATA: Ambulatory: A peripheral IV was started in the Right antecubital site with a Angio cath: 22 gauge. RADIOLOGY DEPARTMENT: MR; Exam(s) Completed: Head: Multiple Sclerosis Spine: Cervical spine SIGNATURE: RT Abdoul(R) PATIENT NAME: Mimi Reno DATE: December 21, 2022 TIME: 1:41 PM documented in this encounter [facility] 12-11-2022 Note HNO ID: [id number] Author: Carrington Cornell PTA Service: ? Author Type: Sleep Lab Technologist Type: Progress Notes Filed: 12/11/2022 11:54 AM Note Text: Episode Visit Count: 4 Therapist That Will Accept/Oversee The Plan Of Care: Zita Velasco Start of Care Date: 11/20/22 Onset Date: 09/20/22 Plan of Care Certification Date: 11/20/22 Next Certification Due Date: 01/19/23 Patient Identified by Name and Date of : Yes REHABILITATION AND SPORTS THERAPY PHYSICAL THERAPY TREATMENT NOTE ASSESSMENT: Mimi Reno tolerated the session with no issues. She demonstrated improvements in cervical and thoracic spine stability and resulting neutral posture . The patient will continue to benefit from ongoing skilled physical therapy to progress toward set goals and for reassessment by supervising therapist. PLAN FOR NEXT VISIT: decrease frequency , patient to have an MRI 12/21/22 recheck next visit SUBJECTIVE: patient reports no heads aches since , sister massaged neck and back which relieved tightness allowing for decreased muscle tension and no head aches Pain: Pain Pain Level: 0 Post Treatment Pain Post Treatment Pain Level: No Change OBJECTIVE MEASURES WITH LEVEL OF FUNCTION: MMT , mid traps 4+/5, low traps 4/5 TREATMENT: Therapeutic Exercise: 1: UBE level 1 2.5 min forward /retro, monitored posture during activity an reviewed HEP 2: *standing mid and low trap rows blue tb 10 x each , 10 x 5 second hold each 3: prone thoracic extension with arm raise arms at side 10 x 4: prone opposite arm and leg extension 10 x right /left 5: *hooklying shoulder pull downs green tb 10 x 2 Skilled Intervention: Patient was educated in proper exercise technique and purpose for exercises. Reviewed and educated patient on additions/changes for home exercise program as above (*). Skilled judgment was provided in selection of appropriate interventions. Provided written instruction for home exercise program to facilitate proper performance and compliance. Patient education as noted. Billing Therapeutic Exercise Treatment Minutes: 40 Total Treatment Time Minutes (timed/untimed): 46 Session Start Time : 753 Session Stop Time : 839 Carrington Cornell PTA [facility] 12-11-2022 History of Presen t illness Narrative Episode Visit Count: 4 Therapist That Will Accept/Oversee The Plan Of Care: Zita Velasco Start of Care Date: 11/20/22 Onset Date: 09/20/22 Plan of Care Certification Date: 11/20/22 Next Certification Due Date: 01/19/23 Patient Identified by Name and Date of : Yes REHABILITATION AND SPORTS THERAPY PHYSICAL THERAPY TREATMENT NOTE ASSESSMENT: Mmii Reno tolerated the session with no issues. She demonstrated improvements in cervical and thoracic spine stability and resulting neutral posture . The patient will continue to benefit from ongoing skilled physical therapy to progress toward set goals and for reassessment by supervising therapist. PLAN FOR NEXT VISIT: decrease frequency , patient to have an MRI 12/21/22 recheck next visit SUBJECTIVE: patient reports no heads aches since , sister massaged neck and back which relieved tightness allowing for decreased muscle tension and no head aches Pain: Pain Pain Level: 0 Post Treatment Pain Post Treatment Pain Level: No Change OBJECTIVE MEASURES WITH LEVEL OF FUNCTION: MMT , mid traps 4+/5, low traps 4/5 TREATMENT: Therapeutic Exercise: 1: UBE level 1 2.5 min forward /retro, monitored posture during activity an reviewed HEP 2: *standing mid and low trap rows blue tb 10 x each , 10 x 5 second hold each 3: prone thoracic extension with arm raise arms at side 10 x 4: prone opposite arm and leg extension 10 x right /left 5: *hooklying shoulder pull downs green tb 10 x 2 Skilled Intervention: Patient was educated in proper exercise technique and purpose for exercises. Reviewed and educated patient on additions/changes for home exercise program as above (*). Skilled judgment was provided in selection of appropriate interventions. Provided written instruction for home exercise program to facilitate proper performance and compliance. Patient education as noted. Billing Therapeutic Exercise Treatment Minutes: 40 Total Treatment Time Minutes (timed/untimed): 46 Session Start Time : 753 Session Stop Time : 839 Carrington Cornell PTA documented in this encounter [facility] 12-04-2022 Note HNO ID: [id number] Author: Carrington Cornell PTA Service: ? Author Type: Sleep Lab Technologist Type: Progress Notes Filed: 12/04/2022 3:17 PM Note Text: Episode Visit Count: 3 Therapist That Will Accept/Oversee The Plan Of Care: Zita Velasco Start of Care Date: 11/20/22 Onset Date: 09/20/22 Plan of Care Certification Date: 11/20/22 Next Certification Due Date: 01/19/23 Patient Identified by Name and Date of : Yes REHABILITATION AND SPORTS THERAPY PHYSICAL THERAPY TREATMENT NOTE ASSESSMENT: Mimi Reno tolerated the session with expected muscle soreness and no issues. She demonstrated improvements in stability of thoracic and cervical posture . The patient will continue to benefit from ongoing skilled physical therapy to progress toward set goals. PLAN FOR NEXT VISIT: continue to address thoracic and cervical stability SUBJECTIVE: Patient Reason for Visit: patient reports did well last and but for unknown reason sunday patient had a head ache as was nauseous , could have bee from [address] to [place] Pain: Pain Pain Level: 1 Pain Location: Neck - Left Description: Aching Post Treatment Pain Post Treatment Pain Level: 0 OBJECTIVE MEASURES WITH LEVEL OF FUNCTION: TREATMENT: Therapeutic Exercise: 1: supine thoracic lift with scap set 5 second hold x 5 x 2 , followed by combining with cervical retraction 2: supine bilateral shoulder ER with scap set and neutral cervical spine green tb 10 x 2 3: hoolying ue D2 flexion bilaterally pink tb 10 x 2 4: *prone opposite arm and leg extension 10 x right /left 5: prone scapular retraction with thoracic extension 10 x 2 6: prone with dorsum of hands on foerhead , thoracic lift with scapular retraction 10 x 3 second hold 7: standing left shoulder extension 90 to 0 degrees blue tb 10 x 2 Skilled Intervention: Patient was educated in proper exercise technique and purpose for exercises. Reviewed and educated patient on additions/changes for home exercise program as above (*). Skilled judgment was provided in selection of appropriate interventions. Provided written instruction for home exercise program to facilitate proper performance and compliance. Manual Therapy: 1: supine suboccipital fascial release 4 ;min 2: seated stm at left upper trap muscle belly Skilled Intervention: Manual skills to improve joint mobility, ROM, and decrease pain. Utilized anatomy knowledge of the therapist, and assessment of patient's response to intervention. Billing Therapeutic Exercise Treatment Minutes: 30 Manual TherapyTreatment Minutes: 10 Total Treatment Time Minutes (timed/untimed): 40 Session Start Time : 0756 Session Stop Time : 08 Carrington Cornell PTA [facility] 12-04-2022 History of Presen t illness Narrative Episode Visit Count: 3 Therapist That Will Accept/Oversee The Plan Of Care: Zita Velasco Start of Care Date: 11/20/22 Onset Date: 09/20/22 Plan of Care Certification Date: 11/20/22 Next Certification Due Date: 01/19/23 Patient Identified by Name and Date of : Yes REHABILITATION AND SPORTS THERAPY PHYSICAL THERAPY TREATMENT NOTE ASSESSMENT: Mimi Reno tolerated the session with expected muscle soreness and no issues. She demonstrated improvements in stability of thoracic and cervical posture . The patient will continue to benefit from ongoing skilled physical therapy to progress toward set goals. PLAN FOR NEXT VISIT: continue to address thoracic and cervical stability SUBJECTIVE: Patient Reason for Visit: patient reports did well last and but for unknown reason sunday patient had a head ache as was nauseous , could have bee from [address] to [place] Pain: Pain Pain Level: 1 Pain Location: Neck - Left Description: Aching Post Treatment Pain Post Treatment Pain Level: 0 OBJECTIVE MEASURES WITH LEVEL OF FUNCTION: TREATMENT: Therapeutic Exercise: 1: supine thoracic lift with scap set 5 second hold x 5 x 2 , followed by combining with cervical retraction 2: supine bilateral shoulder ER with scap set and neutral cervical spine green tb 10 x 2 3: hoolying ue D2 flexion bilaterally pink tb 10 x 2 4: *prone opposite arm and leg extension 10 x right /left 5: prone scapular retraction with thoracic extension 10 x 2 6: prone with dorsum of hands on foerhead , thoracic lift with scapular retraction 10 x 3 second hold 7: standing left shoulder extension 90 to 0 degrees blue tb 10 x 2 Skilled Intervention: Patient was educated in proper exercise technique and purpose for exercises. Reviewed and educated patient on additions/changes for home exercise program as above (*). Skilled judgment was provided in selection of appropriate interventions. Provided written instruction for home exercise program to facilitate proper performance and compliance. Manual Therapy: 1: supine suboccipital fascial release 4 ;min 2: seated stm at left upper trap muscle belly Skilled Intervention: Manual skills to improve joint mobility, ROM, and decrease pain. Utilized anatomy knowledge of the therapist, and assessment of patient's response to intervention. Billing Therapeutic Exercise Treatment Minutes: 30 Manual TherapyTreatment Minutes: 10 Total Treatment Time Minutes (timed/untimed): 40 Session Start Time : 0756 Session Stop Time : 08 Carrington Cornell PTA documented in this encounter [facility] 11-30-2022 Note HNO ID: [id number] Author: Carrington Cornell PTA Service: ? Author Type: Sleep Lab Technologist Type: Progress Notes Filed: 11/30/2022 6:08 PM Note Text: Episode Visit Count: 2 Therapist That Will Accept/Oversee The Plan Of Care: Zita Velasco Start of Care Date: 11/20/22 Onset Date: 09/20/22 Plan of Care Certification Date: 11/20/22 Next Certification Due Date: 01/19/23 Patient Identified by Name and Date of : Yes REHABILITATION AND SPORTS THERAPY PHYSICAL THERAPY TREATMENT NOTE ASSESSMENT: Mimi Reno tolerated the session with decreased symptoms and expected muscle soreness. She demonstrated difficulty with maintaining seated neutral cervical and thoracic spine and improvements in postural awareness. The patient will continue to benefit from ongoing skilled physical therapy to progress toward set goals. PLAN FOR NEXT VISIT: assess use of manual techniques with relief of head ache , then stabilize thoracic and cervical spine in supine progressing to sittng , as long as patient can maintain neutral cervical spine SUBJECTIVE: Patient Reason for Visit: patient reports head ache from base fo skull going up back of head , reports neck pain slightly improved Pain: Pain Pain Level: 3 Post Treatment Pain Post Treatment Pain Level: 1 OBJECTIVE MEASURES WITH LEVEL OF FUNCTION: TREATMENT: Therapeutic Exercise: 1: *supine chin retraction 5 second hold x 5 x 2 , 2: * supine thoracic lift with scap set 5 second hold x 5 x 2 , followed by combining with cervical retraction 3: *supine bilateral shoulder ER with scap set and neutral cervical spine green tb 10 x 2 4: seated cervical retraction 10 x 5: seated bilateral ue ER , patient difficulty with not protractiong cervical spine with exercise 6: *seated and supine decompression breathing 5 x 2 eaach 7: educated patient on postural awareness and need to stabilize cervical and thoracic spine to maintain posture and decrease head and neck pain Skilled Intervention: Patient was educated in proper exercise technique and purpose for exercises. Reviewed and educated patient on additions/changes for home exercise program as above (*). Skilled judgment was provided in selection of appropriate interventions. Provided written instruction for home exercise program to facilitate proper performance and compliance. Patient education as noted. Manual Therapy: 1: supine suboccipital fascial release 4 ;min 2: prone manual release of C1,C2 paraspinals 3: hooklying manual cervical traction intermittent 15 second hold / 5 second relax x 5 min 4: educated patient on suboccipital release with heop from spouse Skilled Intervention: Manual skills to improve joint mobility, ROM, and decrease pain. Utilized anatomy knowledge of the therapist, and assessment of patient's response to intervention. Billing Therapeutic Exercise Treatment Minutes: 40 Manual TherapyTreatment Minutes: 13 Total Treatment Time Minutes (timed/untimed): 53 Session Start Time : 703 Session Stop Time : 756 Carrington Cornell PTA [facility] 11-30-2022 History of Presen t illness Narrative Episode Visit Count: 2 Therapist That Will Accept/Oversee The Plan Of Care: Zita Velasco Start of Care Date: 11/20/22 Onset Date: 09/20/22 Plan of Care Certification Date: 11/20/22 Next Certification Due Date: 01/19/23 Patient Identified by Name and Date of : Yes REHABILITATION AND SPORTS THERAPY PHYSICAL THERAPY TREATMENT NOTE ASSESSMENT: Mimi Reno tolerated the session with decreased symptoms and expected muscle soreness. She demonstrated difficulty with maintaining seated neutral cervical and thoracic spine and improvements in postural awareness. The patient will continue to benefit from ongoing skilled physical therapy to progress toward set goals. PLAN FOR NEXT VISIT: assess use of manual techniques with relief of head ache , then stabilize thoracic and cervical spine in supine progressing to sittng , as long as patient can maintain neutral cervical spine SUBJECTIVE: Patient Reason for Visit: patient reports head ache from base fo skull going up back of head , reports neck pain slightly improved Pain: Pain Pain Level: 3 Post Treatment Pain Post Treatment Pain Level: 1 OBJECTIVE MEASURES WITH LEVEL OF FUNCTION: TREATMENT: Therapeutic Exercise: 1: *supine chin retraction 5 second hold x 5 x 2 , 2: * supine thoracic lift with scap set 5 second hold x 5 x 2 , followed by combining with cervical retraction 3: *supine bilateral shoulder ER with scap set and neutral cervical spine green tb 10 x 2 4: seated cervical retraction 10 x 5: seated bilateral ue ER , patient difficulty with not protractiong cervical spine with exercise 6: *seated and supine decompression breathing 5 x 2 eaach 7: educated patient on postural awareness and need to stabilize cervical and thoracic spine to maintain posture and decrease head and neck pain Skilled Intervention: Patient was educated in proper exercise technique and purpose for exercises. Reviewed and educated patient on additions/changes for home exercise program as above (*). Skilled judgment was provided in selection of appropriate interventions. Provided written instruction for home exercise program to facilitate proper performance and compliance. Patient education as noted. Manual Therapy: 1: supine suboccipital fascial release 4 ;min 2: prone manual release of C1,C2 paraspinals 3: hooklying manual cervical traction intermittent 15 second hold / 5 second relax x 5 min 4: educated patient on suboccipital release with heop from spouse Skilled Intervention: Manual skills to improve joint mobility, ROM, and decrease pain. Utilized anatomy knowledge of the therapist, and assessment of patient's response to intervention. Billing Therapeutic Exercise Treatment Minutes: 40 Manual TherapyTreatment Minutes: 13 Total Treatment Time Minutes (timed/untimed): 53 Session Start Time : 703 Session Stop Time : 756 Carrington Cornell PTA documented in this encounter [facility] 11-20-2022 Note HNO ID: [id number] Author: Zita Velasco, PT, DPT Service: ? Author Type: Physical Therapist Type: Progress Notes Filed: 11/21/2022 5:36 PM Note Text: Episode Visit Count: 1 Therapist That Will Accept/Oversee The Plan Of Care: Zita Velasco Start of Care Date: 11/20/22 Onset Date: 09/20/22 Plan of Care Certification Date: 11/20/22 Next Certification Due Date: 01/19/23 Patient Identified by Name and Date of : Yes REHABILITATION AND SPORTS THERAPY PHYSICAL THERAPY EVALUATION PLAN OF CARE: Assessment: Mimi Reno presents with chief complaint of neck pain, headaches, and intermittent radiating pain to the right forearm. that interferes with physical activities, recreational activities (neck rotation,) . She presents with impairments in cervical range of motion and postural strength deficits. PROMIS? (Patient-Reported Outcomes Measurement Information System) scores were reviewed and physical function domain was within normal limits and self efficacy domain identified as a rehabilitation concern. Prognosis for therapy is Good due to: current objective clinical presentation, good overall health status . She will benefit from skilled therapy services to meet the goals established for this plan of care as noted below. Goals for Episode of Care: created on 11/20/22 through 01/01/23 Bailey in home exercise program. Patient will decrease pain rating by 2 points to meet minimal clinical important difference for numeric pain rating scale. Patient will increase cervical rotation AROM to within normal limits to facilitate ability to perform daily activities. Patient to report a 50% reduction in headache frequency to facilitate tolerance for daily activities. Patient to participate in established exercise routine without exacerbation of pain/symptoms. Sit 1 hour without pain/symptoms to allow for ability to perform work tasks Patient Goals: To improve neck mobility and reduce stiffness Planned Interventions, Frequency, and Duration: Current Frequency: 1x/week Duration: 6 weeks Total Number of Visits Planned: 6 Planned Treatment Interventions: Therapeutic exercise (43339), Neuromuscular re-education (54515), Manual therapy (64632), Therapeutic activities (32730), Self-jail management (78573) PLAN FOR NEXT VISIT: Thoracic spine mobility exercise and progressive neck and scapular strengthening/stabilization exercise. Light manual cervical traction for symptom relief as indicated. Patient demonstrates good understanding of plan of care and treatment. The above goals and plan of care were discussed and agreed upon by patient/family. SUBJECTIVE: Mimi Reno is a 32 year old female seen today for Bilateral neck pain and tightness with onset 2 months insidiously .Notes that she began exercising about 5 months ago, about 4 times a week for about an hour. This included low weight lifting (exercise video) and Trae, no injuries to the neck. Sister has massaged the neck which helps reduce but not abloish the headache. months ago her neck started hurting across the entire neck. Left sided headache occurs at least 1x/day. Headache increases as neck pain increases. Right eye twitching began around the time neck stiffness started. History of intermittent radiating pain down the right arm which has occured for the last 5 years. Occational dropping of items in right arm. No paresthesias, no bowel bladder incontinence, no saddle anesthesia, no lower extremity weakness, no tripping or falls. MRI of the cervical spine with and without contrast and MRI brain were ordered and scheduled for December 21. 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 Trae 2x/week. Intake Information: Prescription present Previous Treatment: Massage Falls Interview: No positive findings with falls interview [place] Vertebral Fracture Clinical Reasoning: No identified risk factors Cancer Clinical Reasoning: No identified risk factors. Infection Clinical Reasoning: No identified risk factors. Cervical Arterial Dysfunction Clinical Reasoning: No identified risk factors [place] - Cervical Cancer Clinical Reasoning: No identified risk factors. Infection Clinical Reasoning: No identified risk factors. Cervical Arterial Dysfunction Clinical Reasoning: No identified risk factors Spine History Sleep Affected by Pain: Not affected by pain Pain: Pain Brandan (more content not included)... [facility] 11-20-2022 History of Presen t illness Narrative Episode Visit Count: 1 Therapist That Will Accept/Oversee The Plan Of Care: Zita Velasco Start of Care Date: 11/20/22 Onset Date: 09/20/22 Plan of Care Certification Date: 11/20/22 Next Certification Due Date: 01/19/23 Patient Identified by Name and Date of : Yes REHABILITATION AND SPORTS THERAPY PHYSICAL THERAPY EVALUATION PLAN OF CARE: Assessment: Mimi Reno presents with chief complaint of neck pain, headaches, and intermittent radiating pain to the right forearm. that interferes with physical activities, recreational activities (neck rotation,) . She presents with impairments in cervical range of motion and postural strength deficits. PROMIS (Patient-Reported Outcomes Measurement Information System) scores were reviewed and physical function domain was within normal limits and self efficacy domain identified as a rehabilitation concern. Prognosis for therapy is Good due to: current objective clinical presentation, good overall health status . She will benefit from skilled therapy services to meet the goals established for this plan of care as noted below. Goals for Episode of Care: created on 11/20/22 through 01/01/23 Bailey in home exercise program. Patient will decrease pain rating by 2 points to meet minimal clinical important difference for numeric pain rating scale. Patient will increase cervical rotation AROM to within normal limits to facilitate ability to perform daily activities. Patient to report a 50% reduction in headache frequency to facilitate tolerance for daily activities. Patient to participate in established exercise routine without exacerbation of pain/symptoms. Sit 1 hour without pain/symptoms to allow for ability to perform work tasks Patient Goals: To improve neck mobility and reduce stiffness Planned Interventions, Frequency, and Duration: Current Frequency: 1x/week Duration: 6 weeks Total Number of Visits Planned: 6 Planned Treatment Interventions: Therapeutic exercise (87917), Neuromuscular re-education (84359), Manual therapy (00141), Therapeutic activities (79066), Self-jail management (39627) PLAN FOR NEXT VISIT: Thoracic spine mobility exercise and progressive neck and scapular strengthening/stabilization exercise. Light manual cervical traction for symptom relief as indicated. Patient demonstrates good understanding of plan of care and treatment. The above goals and plan of care were discussed and agreed upon by patient/family. SUBJECTIVE: Mimi Reno is a 32 year old female seen today for Bilateral neck pain and tightness with onset 2 months insidiously .Notes that she began exercising about 5 months ago, about 4 times a week for about an hour. This included low weight lifting (exercise video) and Trae, no injuries to the neck. Sister has massaged the neck which helps reduce but not abloish the headache. months ago her neck started hurting across the entire neck. Left sided headache occurs at least 1x/day. Headache increases as neck pain increases. Right eye twitching began around the time neck stiffness started. History of intermittent radiating pain down the right arm which has occured for the last 5 years. Occational dropping of items in right arm. No paresthesias, no bowel bladder incontinence, no saddle anesthesia, no lower extremity weakness, no tripping or falls. MRI of the cervical spine with and without contrast and MRI brain were ordered and scheduled for December 21. 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 Trae 2x/week. Intake Information: Prescription present Previous Treatment: Massage Falls Interview: No positive findings with falls interview Red Flags Vertebral Fracture Clinical Reasoning: No identified risk factors Cancer Clinical Reasoning: No identified risk factors. Infection Clinical Reasoning: No identified risk factors. Cervical Arterial Dysfunction Clinical Reasoning: No identified risk factors Red Flags - Cervical Cancer Clinical Reasoning: No identified risk factors. Infection Clinical Reasoning: No identified risk factors. Cervical Arterial Dysfunction Clinical Reasoning: No identified risk factors Spine History Sleep Affected by Pain: Not affected by pain Pain: Pain Pain Level: 4 Pain Location: Neck Description: Tightness Additional Pain Information : Location 2 Pain Level 2: 4 Pain Location 2: Arm - Right, Forearm - Right Description 2: Aching, Throbbing Post Treatment Pain Post Treatment Pain Level: No Change PROMIS Scales Higher is Better 11/19/2022 Phys Func - Score 53 (within normal limits) Phys Func - Percentile 62 % Self-Eff Symptom - Score 43 (Average) Self-Eff Symptom - Percentile 24 % T-scores: mean of general population = 50. 5 points is clinically meaningfully difference Percentiles provide an indication of how the patient's score ranks in relation to the general population. Higher percentile rankings indicate better function/quality of life. 50th percentile is the average of the general population and indicates half of respondents had a worse score. OBJECTIVE MEASURES WITH LEVEL OF FUNCTION: Posture / Alignment Posture: Forward head, Rounded shoulders Reflexes - Upper Extremity R Brachioradialis : 2+ R Biceps: 2+ R Triceps: 2+ L Brachioradialis : 2+ L Biceps: 2+ L Triceps: 2+ Reflexes - Lower Extremity R Patellar: 2+ R Achilles: 2+ R Babinski: Negative L Patellar: 2+ L Achilles: 2+ L Babinski: Negative Sensation - Cervical Spine Cervical Spine Sensation: Grossly Intact Cervical Spine ROM Cervical ROM : Limitation AROM Cervical Flexion AROM: Normal Cervical Extension AROM: Minimal limitation, Increased pain (hinging mid cervical spine) Cervical Side-Bend Right AROM: Minimal limitation, Increased pain Cervical Side-Bend Left AROM: Minimal limitation, Increased pain Cervical Rotation Right AROM: Minimal limitation, Increased pain (L sided neck pain) Cervical Rotation Left AROM: Minimal limitation, Increased pain (R sided neck pain) UE and Cervical Strength R UE Strength: myotomes 5/5 L UE Strength: myotomes 5/5 Special Tests - Cervical Cervical Special Tests: Vertebral Artery Test, Cervical Compression, Cervical Distraction, Hoffmans Vertebral Artery Test: Negative Cervical Compression: Negative Cervical Distraction: Negative (in supine, light manual traction abolishes headache) Neal's: Right Negative, Left Negative Education: Education Learning/educational needs: Home exercise program, Plan of Care, Posture, Body Mechanics Education Provided: Yes, see treatment interventions for education provided Education Provided To: Patient Education Mode/Type: Demonstration, Explanation/Discussion, Literature/Printed Materials Response to Education/Teach Back: States/Identifies, Return Demonstration, Requires Review/Additional Education TREATMENT: PT Treatment Interventions: Therapeutic Exercise, Self-Group Home Management Evaluation Therapeutic Exercise: 1: *Row x10 green 2: *bilat ER with band x10 green 3: *supine DNF chin tuck 5 hold x6 4: reviewed body mechanics with upper body strengthening exercises that patient does during her workouts. Provided education on recommended postural adjustments to reduce excessive UT/LS activation during those exercises. Skilled Intervention: Patient was educated in proper exercise technique and purpose for exercises. Skilled judgment was provided in selection of appropriate interventions. Provided written instruction for home exercise program to facilitate proper performance and compliance. Correct performance of therapeutic exercises was facilitated with verbal, visual, and tactile cuing. Patient education as noted. Self-Group Home Management: 1: education on objective findings, PT plan of care, expected response to exercise, and HEP 2: education on use of pillow or towel roll for back/posture support in sitting Skilled Intervention: Skilled judgment in the selection of proper modification for activity of daily living/home management based on clinical presentation, deficits, and needs. Billing * Evaluation Low Complexity: 1 Unit Therapeutic Exercise Treatment Minutes: 14 Self-Care/Home Management Treatment Minutes: 10 Total Treatment Time Minutes (timed/untimed): 50 Zita Velasco PT, DPT documented in this encounter [facility] 11-14-2022 Note HNO ID: [id number] Author: Genet Denton PA-C Service: ? 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 Recommendations will be communicated via shared medical record or US mail. Primary physician: Brendon Pretty [address] [place] [address] Reason for Evaluation: eye twitching Subjective HPI Mimi Reno is a 32 year old right-handed female with history of hypothyroidism, anxiety who presents for evaluation of eye twitching. Andreia Viramontes CNP is the referring provider. Dr. Pretty, Brendon Mullins MD is the PCP. Chart review: 10/13/22-right eye twitching, stiff neck, and left eye is slower. The twitching slows if she rubs the eyelid. On levothyroxine, last tsh was normal in july. Patient presents for evaluation of multiple complaints. Patient states that she began experiencing right eye twitching about 2 months ago, notes that it has slightly improved over the last few weeks. Notes that around the time and improved she decreased her caffeine intake. She still drinks about 1 cup of coffee a day, has been drinking coffee for many years without any issues in the past. The twitching is described as a flickering of the eyelid, not a full closure of the lid. Does not occur on the left side. Patient also notes some blurred vision in the right eye that began around the same time, only in the right eye, typically only with contacts in. Does not have blurred vision with her glasses. Did see her eye doctor in May, prior to the onset of her symptoms, and had a new prescription, dilated exam was normal. No double vision, no loss of end, no dulled vision. No new medications, has been on Zoloft since 2019 without any issues, no recent dosage changes. Patient also reports around 2 months ago her neck started hurting across the entire neck. Notes that she began exercising about 4 months ago, about 4 times a week for about an hour. This includes low weight lifting and Trae, no injuries to the neck. Notes that she received a massage without any relief in her symptoms. Has tried Tylenol with some relief, changed her pillow without any improvement. Also notes a headache that has been continuous since the onset of her neck pain. But that is primarily in the back of the head, left-sided but will change locations including to the forehead. No associated symptoms with this, notes that when the headache worsens her eye itching seems to worsen as well. Notes that the headaches also improved with Tylenol, but never fully resolved. Does have some dizziness, but attributes this to periods where she does not eat. Patient does note that she has shooting pains down the right arm that occur intermittently over the last few months. Encompassed the whole arm and are relieved with massage. Also notes some weakness to the upper extremities bilaterally, but worse in the right hand. This, however, has been ongoing for many years and has progressively worsened. She notes that about 1-2 times a day she will drop something in her right hand suddenly without any cause. No paresthesias, no bowel bladder incontinence, no saddle anesthesia, no lower extremity weakness, no tripping or falls. Denies any family history of neurologic disease, but states that she has very limited knowledge of her family. Does note history of headaches in the past, infrequent, will have occasional severe headache with associated photophobia once a few years. Never diagnosed with any headache disorder. Headaches have no relation to exercise. 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 Notes that she had left eye weakness as well as right facial droop. Did not have any imaging at that time, notes that her right facial droop has not fully resolved since then. She has not had recurrence of Carranza's palsy since that time. Of, patient is currently breast-feeding and plans to conceive another child in the fall. Labs/Imaging TSH normal, ESR normal, JAMI negative, CMP normal Medications: Current Outpatient Medications Medication Sig Dispense Refill levothyroxine (SYNTHROID) 137 mcg tablet TAKE 1 TABLET BY MOUTH DAILY 30 tablet 5 cetirizine (ZYRTEC) 10 mg tablet Take 1 tablet by mouth once daily. 30 tablet 0 sertraline (ZOLOFT) 25 mg tablet Take 1 tablet by mouth once daily. 30 tablet 11 iv contrast (will be provided with radiology test) MRI CSP Inject, intravenously, once for 1 dose. No IV access, insert saline lock prior to the beginning of sedation, infusion, injection of imaging exam. Discontinue saline lock post exam. (more content not included)... [facility] 10-13-2022 Note HNO ID: [id number] Author: Andreia Viramontes APRN.LEGISLATIVE DIRECTOR Service: ? Author Type: Nurse Practitioner Type: Progress Notes Filed: 10/13/2022 9:20 AM Note Text: Chief Complaint Patient presents with: eye twitching: Right eye X 3 weeks HPI Mimi Reno is a 32 year old female who presents here today for Above Complaints.. Patient presents for right eye twitching that has gotten worse over the last 3 weeks. Patient also reports she has a stiff neck and her left eye has been slower to close than normal. Patient reports that she can get the twitching to slow down or stop if she rubs her eyelid. Past medical history, appointments, medications, allergies reviewed. Previous Medical History PAST MEDICAL HISTORY Diagnosis Date Acquired hypothyroidism 12/17/2014 Hoshimoto's Anxiety 04/20/2014 Well adult exam 04/20/2014 Last done: 01/02/2019 Previous Surgical History PAST SURGICAL HISTORY Procedure Laterality Date SECTION HX N/A 2016 and 2021 PAST SURGICAL HISTORY OF 2004 laser surgery on bilater feet to remove warts Family History FAMILY HISTORY Adopted: Yes Problem Relation Age of Onset Diabetes Father Hypertension Father Diabetes Paternal Grandmother Hypertension Paternal Grandmother Diabetes Paternal Grandfather Coronary Artery Disease Paternal Grandfather over 50 Hypertension Paternal Grandfather Thyroid Paternal Uncle Seizures Mother epiletic No Known Problems Sister No Known Problems Brother No Known Problems Sister No Known Problems Brother No Known Problems Brother No Known Problems Brother No Known Problems Son No Known Problems Daughter Patient Allergies ALLERGIES Allergen Reactions Macrobid [Nitrofura* Other: See Comments Possible urticaria. (Started shortly after finishing antibiotic) Current Medications Current Outpatient Medications on File Prior to Visit Medication Sig levothyroxine (SYNTHROID) 137 mcg tablet TAKE 1 TABLET BY MOUTH DAILY cetirizine (ZYRTEC) 10 mg tablet Take 1 tablet by mouth once daily. sertraline (ZOLOFT) 25 mg tablet Take 1 tablet by mouth once daily. vits15/iron/folic/dss ( AD ORAL) Take by mouth. No current facility-administered medications on file prior to visit. Social History Social History Tobacco Use Smoking status: Never Smokeless tobacco: Never Vaping Use Vaping Use: Never used Substance Use Topics Alcohol use: Yes Comment: occasional wine Drug use: No Review of Symptoms REVIEW OF SYSTEMS SEE HPI EXAM: BP 110/70 Pulse 72 Resp 14 Wt 68 kg (150 lb) LMP 05/05/2022 (Exact Date) BMI 25.75 kg/m? General Appearance: Well appearing, alert, in no acute distress, well-hydrated, well nourished.. Head: Normocephalic, no masses, lesions, tenderness or abnormalities. Eyes: Anicteric sclera. Pupils are equally round and reactive to light. Extraocular movements are intact. . Neck: Decreased lateral ROM right less than left. Health Maintenance List COVID-19 VACCINE(1) Never done INFLUENZA(Season Ended) due on 01/05/2023 ANNUAL PCP TEAM CHRONIC DISEASE VISIT due on 05/29/2023 PAP TESTING due on 12/15/2025 HPV TESTING due on 12/15/2025 DTAP,TDAP,TD(5 - Td or Tdap) due on 06/10/2031 DEPRESSION ASSESSMENT Completed HEPATITIS C SCREENING Completed HIV SCREENING Discontinued ASSESSMENT/PLAN: 1. 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 Neck stiffness - ICD9: 723.5, ICD10: M43.6 - CBC + DIFF - COMP METABOLIC PANEL - JAMI BLOOD - SED RATE REGINA Viramontes, CUSTOMER CARE ASSOCIATE.[facility] 07-10-2022 Miscellaneous Notes The following approved medication requests have been transmitted electronically. Requested Prescriptions Signed Prescriptions Disp Refills levothyroxine (SYNTHROID) 137 mcg tablet 30 tablet 5 Sig: TAKE 1 TABLET BY MOUTH DAILY Authorizing Provider: BRENDON PRETTY MD Patient has been identified by name and date of : Yes Requested Prescriptions Pending Prescriptions Disp Refills levothyroxine (SYNTHROID) 137 mcg tablet 30 tablet 5 Sig: TAKE 1 TABLET BY MOUTH DAILY RX INSTRUCTIONS: Patient aware RX will be sent to pharmacy. No need to notify patient. TORITO 05/29/22 NOV 02/01/23 Blank Bill MA documented in this encounter [facility] 05-31-2022 Miscellaneous Notes Pt called and is notified of providers results and instructions. Pt voices understanding. Mansi Mathew RN Urine does still show infection. Will treat with a different atb. Can still breastfeed with this atb. Let us know if symptoms don't resolve. Thanks. Phu Lockhart PA-C documented in this encounter [facility] 05-29-2022 History of Presen t illness Narrative Chief Complaint Patient presents with: Hives: Over body X 2 days HPI Mimi Reno is a 32 year old female who presents here today for Above Complaints.. On 05/27/22 she started noticing rash that has since spread all over her body. Areas are mostly where her clothes rub on her skin. She denies new detergents. Was recently on macrobid for UTI. Finished atb on 05/22. Has been taking benadryl and benadryl cream. Has used some steroid cream as well. Past medical history, appointments, medications, allergies reviewed. Previous Medical History PAST MEDICAL HISTORY Diagnosis Date Acquired hypothyroidism 12/17/2014 Hoshimoto's Anxiety 04/20/2014 Well adult exam 04/20/2014 Last done: 01/02/2019 Previous Surgical History PAST SURGICAL HISTORY Procedure Laterality Date SECTION HX N/A 2016 and 2021 PAST SURGICAL HISTORY OF 2005 laser surgery on bilater feet to remove warts Family History FAMILY HISTORY Adopted: Yes Problem Relation Age of Onset Diabetes Father Hypertension Father Diabetes Paternal Grandmother Hypertension Paternal Grandmother Diabetes Paternal Grandfather Coronary Artery Disease Paternal Grandfather over 50 Hypertension Paternal Grandfather Thyroid Paternal Uncle Seizures Mother epiletic No Known Problems Sister No Known Problems Brother No Known Problems Sister No Known Problems Brother No Known Problems Brother No Known Problems Brother No Known Problems Son No Known Problems Daughter Patient Allergies ALLERGIES No Known Allergies Current Medications Current Outpatient Medications on File Prior to Visit Medication Sig sertraline (ZOLOFT) 25 mg tablet Take 1 tablet by mouth once daily. levothyroxine (SYNTHROID) 137 mcg tablet TAKE 1 TABLET BY MOUTH DAILY vits15/iron/folic/dss ( AD ORAL) Take by mouth. No current facility-administered medications on file prior to visit. Social History Social History Tobacco Use Smoking status: Never Smokeless tobacco: Never Vaping Use Vaping Use: Never used Substance Use Topics Alcohol use: Yes Comment: occasional wine Drug use: No Review of Symptoms REVIEW OF SYSTEMS See hpi EXAM: BP 118/80 Pulse 89 Resp 16 Wt 66.7 kg (147 lb) LMP 05/05/2022 (Exact Date) SpO2 97% No BMI 25.23 kg/m General Appearance: Well appearing, alert, in no acute distress, well-hydrated, well nourished.. Skin: urticaria scattered on trunk and arms. +dermatographia to skin scratch. Health Maintenance List HEPATITIS B(1 of 3 - 3-dose series) Never done COVID-19 VACCINE(1) Never done INFLUENZA(1) due on 01/05/2022 DEPRESSION ASSESSMENT Never done ANNUAL PCP TEAM CHRONIC DISEASE VISIT due on 02/01/2023 PAP TESTING due on 12/15/2025 HPV TESTING due on 12/15/2025 DTAP,TDAP,TD(5 - Td or Tdap) due on 06/10/2031 HEPATITIS C SCREENING Completed HIV SCREENING Discontinued Data reviewed ASSESSMENT/PLAN: 1. Urticaria - ICD9: 708.9, ICD10: L50.9 (primary diagnosis) - Likely viral or allergic etiology discussed with patient - recent atb use may be cause although not definitive. - Treatment with antihistamine- zyrtec 10mg. Prn benadryl. Discussed risks with breasting is minimal but advised to monitor baby. - Anti itch therapy of Oral Benydryl and topical benadryl recommended prn - Follow up if symptoms persist or worsen. 2. Dysuria - ICD9: 788.1, ICD10: R30.0 recurrent - Send urine for culture - Patient education for prevention given - URINE CULTURE Phu Lockhart PA-C documented in this encounter [facility] 04-03-2022 Instructions Michele Chow APRN.LEGISLATIVE DIRECTOR - 04/03/2022 1:58 PM EST [facility] PATIENT INFO BLADDER INFECTION OVERVIEW Bladder infections are one of the most common infections, causing symptoms of burning with urination and needing to urinate frequently. A bladder infection is a type of urinary tract infection (UTI). Bladder infections are more common is women than men. Most women have an uncomplicated bladder infection that is easily treated with a short course of antibiotics. In men, bladder infections may also affect the prostate gland, and a longer course of treatment may be needed. BLADDER INFECTION CAUSES The urinary tract includes the kidneys (which filter urine), ureters (the tube that carries urine from the kidneys to the bladder), the bladder (which stores urine), and urethra (the tube that carries urine out of the bladder). Bacteria do not normally live in these areas. However, bacteria normally live close to the urethra in women and men who are not circumcised. Bladder infections occur when bacteria travel up the urethra into the bladder. Factors that increase the risk of developing a bladder infection include: Vaginal sex Use of spermicides History of past bladder infections Diabetes In men, not being circumcised or having anal sex increase the risk of bladder infections. BLADDER INFECTION SYMPTOMS The typical symptoms of a bladder infection include: Pain or burning when urinating Frequent need to urinate Urgent need to urinate Blood in the urine Fever, back pain, nausea, or vomiting are not common symptoms of a bladder infection, but can occur in people with a kidney infection (pyelonephritis). If you have these symptoms, you should call your doctor or nurse immediately. Is it a bladder infection or something else? -- Burning with urination can also occur in people with vaginitis (eg, yeast infection) or urethritis (inflammation of the urethra). For this reason, it is important to call your healthcare provider before assuming you have a bladder infection. BLADDER INFECTION DIAGNOSIS Simple bladder infections are usually diagnosed based upon your symptoms alone. However, most patients, especially those who have bladder infection symptoms for the first time, should see a healthcare provider for urine testing. Urine culture -- A urine culture is a test that uses a sample of urine to try and grow bacteria in a laboratory. It usually requires about 48 hours to get results. However, a urine culture is not always required to diagnose a bladder infection. Urine culture is often recommended if: You have never had a bladder infection before You have symptoms that are not typical for bladder infection You have had resistant bladder infections before You have frequent bladder infections You do not begin to feel better within 24 to 48 hours after starting antibiotics You are BLADDER INFECTION TREATMENT Bladder infection -- In young, healthy adolescents and adults with a bladder infection, the usual treatment includes a three to seven day course of antibiotics. The typical drugs chosen are: trimethoprim-sulfamethoxazole (Bactrim ), nitrofurantoin (Macrobid ), ciprofloxacin (Cipro ) or levofloxacin (Levaquin ). In men, the infection may involve your prostate gland and treatment is usually given for at least 7 days. Your symptoms should begin to resolve within one day after starting treatment. It is important to take the full course of antibiotics to completely eliminate the infection. If your symptoms persist for more than two or three days after starting treatment, call your healthcare provider. If needed, you can take a prescription medication that numbs the bladder and urethra (phenazopyridine [Pyridium ]) to reduce the burning pain of some UTIs. A similar medication is available without a prescription (eg, Uristat). Both medications change the color of the urine (usually blue or orange) and can interfere with laboratory testing. You should not take these medications for more than 48 hours due to the risk of side effects. These medications do not treat the infection and must be taken along with an antibiotic. Some providers recommend drinking more fluids while treating bladder infections to help flush bacteria from the bladder. Others believe that drinking more fluids may dilute the antibiotic in the bladder and make the medication less effective. No studies have been performed to address this issue. There are also no good studies on the effectiveness of cranberry juice for treating a bladder infection; we do not recommend using cranberry juice to treat bladder infections. Follow-up care -- Follow-up testing is not needed in healthy, young men or women with a bladder infection if symptoms resolve. women are usually asked to have a repeat urine culture one to two weeks after treatment has ended to make sure the bacteria are no longer in the urine. RECURRENT BLADDER INFECTIONS Bladder infections versus other causes -- Some adults, especially women, develop bladder infections frequently. In this case, it is important to confirm that your symptoms (eg, pain or burning, frequency, and urgency) are caused by a bladder infection. Symptoms are usually similar from one infection to another. The best way to confirm an infection is to have a urine culture. If your urine culture is negative for infection, other causes of pain, burning, and frequency should be investigated. There is no reason to take antibiotics if your urine culture is negative. Need for further testing -- If you continue to develop bladder infections, you may require further testing. If you continue to notice blood in your urine after your bladder infection has cleared, you should have further testing. Preventing recurrent UTIs -- Women with recurrent urinary tract infections may be advised to take steps to prevent bladder infections, including one or more of the following: Changes in control -- Women who develop frequent bladder infections and use spermicides, particularly those who also use a diaphragm, may be encouraged to use an alternate method of control. Cranberry products -- Taking cranberry juice or cranberry tablets has been promoted as one way to help prevent frequent bladder infections. However, this has not been proven. Drinking more fluid and urinating after intercourse -- Although studies have not proven that drinking more fluids or urinating soon after intercourse can prevent infection, some healthcare providers recommend these measures since they are not harmful. Drinking more fluid may help to wash out bacteria that enter the bladder. Postmenopausal women -- Postmenopausal women who develop recurrent bladder infections may benefit from using vaginal estrogen. Vaginal estrogen is available in a flexible ring that is worn in the vagina for three months (eg, Estring ), a small tablet (Vagifem ), or a cream (eg, Premarin or Estrace ). Vaginal estrogen is discussed in more detail in a separate topic review. Antibiotics -- A preventive antibiotic treatment may be recommended if you repeatedly develop bladder infections and have not responded to other preventive measures. Antibiotics are highly effective in preventing recurrent bladder infections and can be taken in several different ways. Preventive antibiotic -- You can take a low dose of an antibiotic once per day or three times per week for six months to several years. Antibiotics following intercourse -- In women who develop urinary tract infections after sex, taking a single low dose antibiotic after intercourse can help to prevent bladder infections. Self-treatment -- A plan to begin antibiotics at the first sign of a bladder infection may be recommended in some situations. Before starting this regimen, it is important that you have had testing (urine cultures) to confirm that your symptoms are caused by a bladder infection; some people have symptoms of a bladder infection but do not actually have an infection. documented in this encounter [facility] 04-03-2022 History of Presen t illness Narrative This note was created using NoteWriter. Luis Phan Christina Reno is a 32 year old female. Back pain since Sat Worse when holding kiddo Chills Fatigued Decreased appetite Previous UTIs, hx with Currently denies being Odor with urination Dark urine at home The history is provided by the patient. UTI This is a new problem. The current episode started 2 days ago. The problem occurs every urination. The problem has not changed since onset.The quality of the pain is described as aching. The pain is at a severity of 5/10. The pain is moderate. There has been no fever. She is Sexually active. There is No history of pyelonephritis. Associated symptoms include chills. Pertinent negatives include no sweats, no nausea, no vomiting, no discharge, no frequency, no hematuria, no hesitancy, no possible , no urgency and no flank pain. She has tried nothing for the symptoms. Her past medical history is significant for recurrent UTIs (with ). Her past medical history does not include kidney stones. Review of Systems Constitutional: Positive for chills and fatigue. Negative for activity change and fever. HENT: Negative for congestion, rhinorrhea, sore throat and trouble swallowing. Eyes: Negative for discharge, redness and itching. Respiratory: Negative for cough, shortness of breath and wheezing. Cardiovascular: Negative for chest pain and palpitations. Gastrointestinal: Negative for abdominal distention, diarrhea, nausea and vomiting. Endocrine: Negative for polydipsia, polyphagia and polyuria. Genitourinary: Positive for decreased urine volume and dysuria. Negative for difficulty urinating, flank pain, frequency, hematuria, hesitancy and urgency. Musculoskeletal: Positive for back pain. Negative for arthralgias and myalgias. Skin: Negative for rash. Neurological: Negative for dizziness, weakness and light-headedness. Psychiatric/Behavioral: Negative for sleep disturbance. The patient is not nervous/anxious. Objective BP 108/61 Pulse 91 Temp 36.9 C (98.5 F) (Temporal) Resp 16 Ht 162.6 cm (5' 4 ) Wt 64.9 kg (143 lb) LMP 11/07/2021 (Approximate) SpO2 100% BMI 24.55 kg/m Physical Exam Vitals and nursing note reviewed. Constitutional: General: She is not in acute distress. Appearance: She is not ill-appearing or diaphoretic. HENT: Head: Normocephalic and atraumatic. Eyes: Extraocular Movements: Extraocular movements intact. Pupils: Pupils are equal, round, and reactive to light. Cardiovascular: Rate and Rhythm: Normal rate and regular rhythm. Pulses: Normal pulses. Heart sounds: Normal heart sounds. Pulmonary: Effort: Pulmonary effort is normal. Breath sounds: Normal breath sounds. Abdominal: General: Bowel sounds are normal. There is no distension. Palpations: Abdomen is soft. Tenderness: There is no abdominal tenderness. There is no right CVA tenderness or left CVA tenderness. Musculoskeletal: General: Tenderness (to palpation of low back) present. Normal range of motion. Skin: General: Skin is warm and dry. Capillary Refill: Capillary refill takes less than 2 seconds. Neurological: General: No focal deficit present. Mental Status: She is alert and oriented to person, place, and time. Mental status is at baseline. Psychiatric: Mood and Affect: Mood normal. Behavior: Behavior normal. Assessment and Plan ASSESSMENT/PLAN: 1. Acute cystitis with hematuria - ICD9: 595.0, ICD10: N30.01 - Dysuria, low back pain, and odorous decreased urination - HX of UTI with pregancy - UA showing (+) Nitrites and leuks - Preg (-) - URINE CULTURE - HCG QUAL UR B/O - Cefdinir x 5 days Michele Chow APRN.LEGISLATIVE DIRECTOR documented in this encounter [facility] 02-01-2022 History of Presen t illness Narrative iChief Complaint Patient presents with: Physical: Has form for completion HPI Mimi Reno is a 31 year old female who presents here today for physical. Patient with hx of anxiety, hypothyroid, and those as below. No specific concerns today. Has continued to do well on zoloft at just 25mg. Past medical history, appointments, medications, allergies reviewed. Previous Medical History PAST MEDICAL HISTORY Diagnosis Date Acquired hypothyroidism 12/17/2014 Hoshimoto's Anxiety 04/20/2014 Well adult exam 04/20/2014 Last done: 01/02/2019 Previous Surgical History PAST SURGICAL HISTORY Procedure Laterality Date SECTION HX N/A 2016 and 2018 PAST SURGICAL HISTORY OF 2005 laser surgery on bilater feet to remove warts Family History FAMILY HISTORY Adopted: Yes Problem Relation Age of Onset Diabetes Father Hypertension Father Diabetes Paternal Grandmother Hypertension Paternal Grandmother Diabetes Paternal Grandfather Coronary Artery Disease Paternal Grandfather over 50 Hypertension Paternal Grandfather Thyroid Paternal Uncle Seizures Mother epiletic No Known Problems Sister No Known Problems Brother No Known Problems Sister No Known Problems Brother No Known Problems Brother No Known Problems Brother No Known Problems Son No Known Problems Daughter Patient Allergies ALLERGIES No Known Allergies Current Medications Current Outpatient Medications on File Prior to Visit Medication Sig levothyroxine (SYNTHROID) 137 mcg tablet TAKE 1 TABLET BY MOUTH DAILY sertraline (ZOLOFT) 25 mg tablet Take 1 tablet by mouth once daily. vits15/iron/folic/dss ( AD ORAL) Take by mouth. No current facility-administered medications on file prior to visit. Social History Social History Tobacco Use Smoking status: Never Smokeless tobacco: Never Vaping Use Vaping Use: Never used Substance Use Topics Alcohol use: Yes Comment: occasional wine Drug use: No Review of Symptoms REVIEW OF SYSTEMS GENERAL: No weight loss, malaise or fevers HEENT: No changes in hearing or vision, no nose bleeds or other nasal problems NECK: Negative for lumps, goiter, pain and significant neck swelling RESPIRATORY: Negative for cough, hemoptysis, wheezing, COPD, dyspnea or shortness of breath CARDIOVASCULAR: Negative for chest pain, leg swelling, hypertension, CHF or palpitations GI: Negative for abdominal discomfort, blood in stools or black stools, change in bowel habit, heart burn, nausea, vomiting : No history of dysuria, frequency or incontinence MUSCULOSKELETAL: Negative for joint pain or swelling, back pain or muscle pain SKIN: Negative for lesions, rash, and itching PSYCH: Negative for sleep disturbance, worsening mood disorder and recent psychosocial stressors HEMATOLOGY/LYMPHOLOGY: Negative for prolonged bleeding, bruising easily or swollen nodes ENDOCRINE: Negative for cold or heat intolerance, polyuria, polydipsia and goiter NEURO: No history of headaches, syncope, paralysis, seizures or tremors EXAM: BP 102/68 (BP Site: Left Arm, BP Position: Sitting, BP Cuff Size: Regular Adult) Pulse 72 Temp 36.5 C (97.7 F) Resp 16 Ht 160.5 cm (5' 3.19 ) Wt 64.4 kg (142 lb) LMP 11/07/2021 (Approximate) BMI 25.00 kg/m General Appearance: Well appearing, alert, in no acute distress, well-hydrated, well nourished.. Skin: Skin color, texture, turgor normal, no suspicious rashes or lesions. Head: Normocephalic, no masses, lesions, tenderness or abnormalities. Eyes: Anicteric sclera. Pupils are equally round and reactive to light. Extraocular movements are intact. . Oropharynx: Lips, mucosa, and tongue normal, teeth and gums normal, oropharynx normal. Neck: Supple, no adenopathy; thyroid symmetric, normal size, no bruits. Lungs: Lungs clear to auscultation. No wheezing, rhonchi, rales.. Heart: RRR without murmur, gallop, or rubs. No ectopy. Abdomen: Normal abdominal exam, Abdomen soft, non-tender. Bowel sounds normal. No masses, organomegaly. Extremities: No deformities, edema, skin discoloration, clubbing or cyanosis. Good capillary refill. . Peripheral Pulses: Normal. Neurologic: Gait normal. Reflexes normal and symmetric. Sensation grossly intact.. Health Maintenance List HEPATITIS B(1 of 3 - 3-dose series) Never done COVID-19 VACCINE(1) Never done DEPRESSION ASSESSMENT Never done ANNUAL PCP TEAM CHRONIC DISEASE VISIT due on 01/31/2022 INFLUENZA(1) due on 01/05/2022 PAP TESTING due on 12/15/2025 HPV TESTING due on 12/15/2025 DTAP,TDAP,TD(5 - Td or Tdap) due on 06/10/2031 HEPATITIS C SCREENING Completed HIV SCREENING Discontinued Data reviewed Component Latest Ref Rng & Units 01/20/2022 WBC 3.70 - 11.00 k/uL 7.02 RBC 3.90 - 5.20 m/uL 4.33 Hemoglobin 11.5 - 15.5 g/dL 12.7 Hematocrit 36.0 - 46.0 % 39.4 MCV 80.0 - 100.0 fL 91.0 MCH 26.0 - 34.0 pg 29.3 MCHC 30.5 - 36.0 g/dL 32.2 RDW-CV 11.5 - 15.0 % 12.3 Platelet Count 150 - 400 k/uL 219 MPV 9.0 - 12.7 fL 10.7 Neut% % 50.6 Abs Neut (ANC) 1.45 - 7.50 k/uL 3.56 Lymph% % 31.8 Abs Lymph 1.00 - 4.00 k/uL 2.23 Sargent% % 7.3 Abs Sargent <0.87 k/uL 0.51 Eosin% % 10.0 Abs Eosin <0.46 k/uL 0.70 (H) Baso% % 0.3 Abs Baso <0.11 k/uL <0.03 DTYPE Auto Total Cholesterol, Nonfasting <200 mg/dL 156 Triglycerides, Nonfasting <150 mg/dL 56 HDL Cholesterol, Nonfasting >39 mg/dL 72 LDL Cholesterol, Nonfasting <100 mg/dL 73 Non HDL Cholesterol, Nonfasting <130 mg/dL 84 VLDL Cholesterol, Nonfasting <30 mg/dL 11 Total Chol/HDL Ratio, Nonfasting <5.10 mg/dL 2.17 LDL/HDL Ratio, Nonfasting <2.54 mg/dL 1.01 Hemoglobin A1C 4.3 - 5.6 % 5.3 Estimated Average Glucose mg/dL 105 TSH 0.270 - 4.200 mIU/L 0.375 ASSESSMENT/PLAN: 1. Well adult exam - ICD9: V70.0, ICD10: Z00.00 (primary diagnosis) - Counseled on healthy diet and regular exercise - Calcium intake with supplements or by diet of 1000 mg/day for under 50, 5834-2547 mg/day for 50+ 2. Anxiety - ICD9: 300.00, ICD10: F41.9 stable - SERTRALINE 25 MG TABLET 3. Acquired hypothyroidism - ICD9: 244.9, ICD10: E03.9 - Instructed patient on importance of taking on an empty stomach either first thing in the morning or at bedtime. - continue current dose of Synthroid - TSH BLD 4. Immunity status testing - ICD9: V72.61, ICD10: Z01.84 - HEP B SURF AB QUAL Follow up yearly. Recheck tsh in 6 months. Phu Lockhart PA-C documented in this encounter [facility] 01-18-2022 Miscellaneous Notes Please see pt message and place lab orders needed Peg Loaiza Ma documented in this encounter [facility] 12-14-2021 History of Presen t illness Narrative Images from the original note were not included. Subjective HPI HPI Mimi Reno is a 31 year old female who presents today for CC of itchy rash. This started 1 week ago. Has tried otc cream with minimal relief. Symptoms are worsened by nothing. Risk factors recently working in garden. Denies fever. .Patient presents with: Rash: Rash all over and spreading, itches, burning, possible poison [place] x 1 week PAST MEDICAL HISTORY Diagnosis Date Acquired hypothyroidism 12/17/2014 Hoshimoto's Anxiety 04/20/2014 Well adult exam 04/20/2014 Last done: 01/02/2019 PAST SURGICAL HISTORY Procedure Laterality Date SECTION HX N/A 2016 and 2018 PAST SURGICAL HISTORY OF 2005 laser surgery on bilater feet to remove warts ALLERGIES Patient has no known allergies. MEDICATIONS levothyroxine (SYNTHROID) 137 mcg tablet TAKE 1 TABLET BY MOUTH DAILY sertraline (ZOLOFT) 25 mg tablet Take 1 tablet by mouth once daily. vits15/iron/folic/dss ( AD ORAL) Take by mouth. FAMILY HISTORY Adopted: Yes Problem Relation Age of Onset Diabetes Father Hypertension Father Diabetes Paternal Grandmother Hypertension Paternal Grandmother Diabetes Paternal Grandfather Coronary Artery Disease Paternal Grandfather over 50 Hypertension Paternal Grandfather Thyroid Paternal Uncle Seizures Mother epiletic No Known Problems Sister No Known Problems Brother No Known Problems Sister No Known Problems Brother No Known Problems Brother No Known Problems Brother No Known Problems Son No Known Problems Daughter Social History Tobacco Use Smoking status: Never Smokeless tobacco: Never Vaping Use Vaping Use: Never used Substance Use Topics Alcohol use: Yes Comment: occasional wine Drug use: No ROS Objective Blood pressure 118/70, pulse 70, temperature 36.2 C (97.1 F), resp. rate 21, weight 65.7 kg (144 lb 12.8 oz), last menstrual period 11/07/2021, SpO2 98 %, currently . Physical Exam Constitutional: General: She is not in acute distress. Appearance: She is not toxic-appearing or diaphoretic. HENT: Head: Normocephalic and atraumatic. Pulmonary: Effort: Pulmonary effort is normal. No accessory muscle usage or respiratory distress. Skin: Neurological: Mental Status: She is alert and oriented to person, place, and time. ASSESSMENT/PLAN: 1. Rash - ICD9: 782.1, ICD10: R21 Suspect allergic dermatitis. -use medication as prescribed -follow up if symptoms persist, worsen, change - TRIAMCINOLONE ACETONIDE 0.1 % TOPICAL CREAM Agrees to plan Shravan Martin APRN.SHEILA documented in this encounter [facility] Diagnosis Rash- Primary Rash and other nonspecific skin eruption [facility] Diagnosis Encounter for screening for cardiovascular disorders- Primary Screening for other and unspecified cardiovascular conditions Encounter for screening for diabetes mellitus Screening for diabetes mellitus Medication management Encounter for long-term (current) use of other medications [facility] Diagnosis Well adult exam- Primary Routine general medical examination at a health care facility Anxiety Anxiety state, unspecified Acquired hypothyroidism Unspecified hypothyroidism Immunity status testing Antibody response examination [facility] Diagnosis Acute cystitis with hematuria- Primary Acute cystitis [facility] Diagnosis Dysuria- Primary [facility] Diagnosis Urticaria- Primary Urticaria, unspecified Dysuria [facility] Diagnosis Acquired hypothyroidism Unspecified hypothyroidism [facility] Diagnosis Cervicogenic headache- Primary Headache [facility] Diagnosis Cervicogenic headache- Primary Headache [facility] Diagnosis Cervicogenic headache- Primary Headache [facility] Diagnosis Cervicogenic headache- Primary Headache [facility] Diagnosis Acquired hypothyroidism- Primary Unspecified hypothyroidism Agitation Other and unspecified special symptom or syndrome, not elsewhere classified Encounter for screening for cardiovascular disorders Screening for other and unspecified cardiovascular conditions Encounter for screening for diabetes mellitus Screening for diabetes mellitus Medication management Encounter for long-term (current) use of other medications documented in this encounter [facility] note* Diagnosis Acquired hypothyroidism Unspecified hypothyroidism documented in this encounter [facility] note* Diagnosis Acquired hypothyroidism Unspecified hypothyroidism documented in this encounter [facility] note* Diagnosis Demyelinating disease of central nervous system (HCC) Demyelinating disease of central nervous system, unspecified documented in this encounter [facility] note* Diagnosis Demyelinating disease of central nervous system (HCC) Demyelinating disease of central nervous system, unspecified documented in this encounter [facility] note* Diagnosis Bacterial sinusitis- Primary Unspecified sinusitis (chronic) documented in this encounter [facility] * Olamide Morales MD - 01/13/2019 9:34 AM EDT Physician Discharge Summary Patient ID: Mimi Reno [id number] 28 y.o. 1990 Admit date: 01/10/2019 Discharge date and time: 01/13/19 Admitting Physician: Lavonne Kay MD Discharge Physician: Andrew Admission Diagnoses: affected by growth restriction [O36.5990] Discharge Diagnoses: s/p repeat CD Admission Condition: good Discharged Condition: good Indication for Admission: oligohydramnios and growth restriction Hospital Course: Patient underwent repeat CD on 01/10. Hospital course uncomplicated. Consults: none Significant Diagnostic Studies: labs: See below. Still pending Outstanding Order Results Date and Time Order Name Status Description 01/11/2019 0506 Lupus Anticoagulant In process 01/11/2019 0506 Beta-2 GlycoProtein 1 Ab,IGG & IGM In process 01/11/2019 0506 Cardiolipin Ab IgG, IgM, IgA In process 01/11/2019 0506 JAMI In process Treatments: surgery: Repeat CD Discharge Exam: BP 117/67 Pulse 68 Temp 97.6 F (36.4 C) (Temporal) Resp 18 Ht 5' 4 (1.626 m) Wt 176 lb (79.8 kg) SpO2 97% ? Unknown BMI 30.21 kg/m General Appearance: Alert, cooperative, no distress, appears stated age Head: Normocephalic, without obvious abnormality, atraumatic Eyes: PERRL, conjunctiva/corneas clear, EOM's intact, fundi benign, both eyes Abdomen: Soft, non-tender, bowel sounds active all four quadrants, no masses, no organomegaly Disposition: home Patient Instructions: @MEDDISCHARGE@ Activity: activity as tolerated Diet: regular diet Wound Care: keep wound clean and dry Follow-up with in 1 week. Signed: Olamide Morales 01/13/2019 9:35 AM documented in this encounter Discharge Instructions * Discharge Instr - Activity* Olamide Morales MD - 01/13/2019 9:41 AM EDT As tolerated. Pelvic rest * Discharge Instr - Diet* Olamide Morales MD - 01/13/2019 9:41 AM EDT ? Good nutrition is important when healing from an illness, injury, or surgery. Follow any nutrition recommendations given to you during your hospital stay. ? If you were given an oral nutrition supplement while in the hospital, continue to take this supplement at home. You can take it with meals, in-between meals, and/or before bedtime. These supplements can be purchased at most local grocery stores, pharmacies, and chain super-stores. ? If you have any questions about your diet or nutrition, call the hospital and ask for the dietitian. * Additional Instructions* Alyce Alfonso RN - 01/13/2019 After Your Delivery (the Period): Your Care Instructions Congratulations on the of your baby. Like , the period can be a time of excitement, amarilis, and exhaustion. You may look at your wondrous little baby and feel happy. You may also be overwhelmed by your new sleep hours and new responsibilities. In these first weeks after delivery, try to take good care of yourself. It may take 4 to 6 weeks to feel like yourself again, and possibly longer if you had a . You will likely feel very tired for several weeks. Your dayswill be full of ups and downs, but lots of amarilis as well. FOLLOW-UP: Your follow-up care is a doyle part of your treatment and safety. Follow-up with your OB doctor in {Time; 1 to 12 weeks:31925} weeks or as specified by your physician. Be sure to make and go to all appointments, and call your doctor if you are having problems. It's also a good idea to know your test results and keep a list of the medicines you take. BLEEDING Vaginal bleeding will decrease in amount over the next few weeks. Bleeding may pick remover and then decrease again around 7-10 days . Use pads instead of tampons for the bloody flow that may last as long as 2 weeks. You will notice that as your activity increases, your flow may increase. Call your doctor if you are saturating one maxi pad in an hour & passing large clots for 3 hours or more. ACTIVITY NO SEXUAL activity for 6 weeks or until advised by your doctor; Nothing in vagina: intercourse, tampons, or douching. Showering is okay; NO tub baths, swimming, or hot tubs. Gradually increase your activity. Resume exercise regimen only after advice by your doctor. Avoid lifting anything heavier than your baby or a gallon of milk for six weeks. Avoid driving 1 week for vaginal delivery and 2 weeks for section, or longer if you are onprescription pain medicine unless otherwise instructed by your doctor. Rise slowly from a lying to sitting and then a standing position. Climb stairs carefully. Use caution when carrying your baby up and down the stairs. You may feel tired or have a lack of energy. You may continue your vitamin to replenish nutrients post delivery. Nap when baby naps to catch up on sleep. EMOTIONS You may feel gregorio, sad, teary, & overwhelmed for the first 2 weeks ; however, feelings of post depression may occur any time within the first year after delivery. Contact your OB provider if you feel you may be showing signs of depression, or have thoughts of harming yourself or your infant. If will not stop crying, contact another adult for help or place in their crib on their back and take a break. NEVER shake your infant. WOUND CARE For Vaginal Delivery: Shower daily, and cleanse your perineum (bottom) with mild soap from front to Back. Use the plasticsquirt bottle until bleeding stops each time you use the restroom instead of wiping with toilet paper. Ease soreness of hemorrhoids and the area between your vagina and rectum with ice compresses or witch eric pads. If used, stitches will dissolve in 4-6 weeks on their own. You may use a sitz bath or soak in a clean tub with drain open and water running for comfort. Kegel exercises will help restore bladder control. To do these tighten your muscles as if you were stopping your urine flow. Hold for a few seconds and then relax. Do these throughout the day. For Section Delivery: Keep your incision clean and dry. If you had steri-strips you may remove these once they start falling off. If you have sy they need to be removed 3-10 days after delivery. If you have steri-strips, remove after 7 - 10 days. Do not wear clothing that irritates the incision line. If your incision in in a crease that is not dry, use a hair-dryer to dry the area 3 times a day. If you develop fever, shaking chills, redness, swelling, drainage or discharge from your wound, or if your wound looks like it's coming apart call your doctor immediately. BREAST CARE If you develop a warm, red, tender area on your breast or develop a fever contact your doctor. For moms: If you become engorged, feeding may be more difficult or painful for 1-2 days. You may find it helpful to hand express some milk so that the can latch on more easily or ease soreness with wet,warm washcloths. While , continue to take your vitamins as directed by your doctor. For non- moms: You may apply ice packs to your breasts over you bra for twenty minutes at a time for comfort. Cabbage leaves may be applied to breasts, replace when wilted. Avoid stimulation to your breasts, when showering allow the water to strike your back not your breasts. Do not express milk or your body will make more. Wear a good fitting bra until your milk dries, such as a sports bra. DIET & CONSTIPATION Eat a well balanced diet focusing on foods high in fiber and protein such as: whole grain cereals and breads, fruits and vegetables and legumes (eg, beans, lentils) Drink 8-10 glasses of fluids daily, especially water. To avoid constipation you may take a mild dknf-rik-ehoehsh stool softener (such as colace) as recommended by your doctor. SWELLING Try to keep your legs elevated when you are sitting or lying down. Stay hydrated and take walks. BABY Babies sleep safest on their back in a crib without bumpers, blankets or stuffed animals. Do not sleep with your baby in your bed or the couch. Do not expose baby to smoke, this can increase risks of asthma and sudden infant syndrome. Ifyou or someone around baby smokes have them change their shirt and wash any facial hair before holding baby. Do not smoke inside the house and change the ventilation filters in the house before bringing baby home. WHEN TO CALL THE DOCTOR Signs of infection, including fever and chills Increased bleeding: soaking more than one sanitary pad an hour Wounds that become red, swollen or drain pus Vaginal discharge that smells foul New pain, swelling, or tenderness in your legs Pain that you can't control with the medications you've been given Pain, burning, urgency or frequency of urination, or persistent bleeding in the urine Cough, shortness of breath, or chest pain Depression, suicidal thoughts, or feelings of harming your baby Breasts that are hot, red and accompanied by fever Any cracking or bleeding from the nipple or areola (the dark-colored area of the breast) In case of an emergency, call 911 immediately. After Your Delivery (the Period): Your Care Instructions Congratulations on the of your baby. Like , the period can be a time of excitement, amarilis, and exhaustion. You may look at your wondrous little baby and feel happy. You may also be overwhelmed by your new sleep hours and new responsibilities. In these first weeks after delivery, try to take good care of yourself. It may take 4 to 6 weeks to feel like yourself again, and possibly longer if you had a . You will likely feel very tired for several weeks. Your dayswill be full of ups and downs, but lots of amarilis as well. FOLLOW-UP: Your follow-up care is a doyle part of your treatment and safety. Follow-up with your OB doctor in {Time; 1 to 12 weeks:01999} weeks or as specified by your physician. Be sure to make and go to all appointments, and call your doctor if you are having problems. It's also a good idea to know your test results and keep a list of the medicines you take. BLEEDING Vaginal bleeding will decrease in amount over the next few weeks. Bleeding may pick remover and then decrease again around 7-10 days . Use pads instead of tampons for the bloody flow that may last as long as 2 weeks. You will notice that as your activity increases, your flow may increase. Call your doctor if you are saturating one maxi pad in an hour & passing large clots for 3 hours or more. ACTIVITY NO SEXUAL activity for 6 weeks or until advised by your doctor; Nothing in vagina: intercourse, tampons, or douching. Showering is okay; NO tub baths, swimming, or hot tubs. Gradually increase your activity. Resume exercise regimen only after advice by your doctor. Avoid lifting anything heavier than your baby or a gallon of milk for six weeks. Avoid driving 1 week for vaginal delivery and 2 weeks for section, or longer if you are onprescription pain medicine unless otherwise instructed by your doctor. Rise slowly from a lying to sitting and then a standing position. Climb stairs carefully. Use caution when carrying your baby up and down the stairs. You may feel tired or have a lack of energy. You may continue your vitamin to replenish nutrients post delivery. Nap when baby naps to catch up on sleep. EMOTIONS You may feel gregorio, sad, teary, & overwhelmed for the first 2 weeks ; however, feelings of post depression may occur any time within the first year after delivery. Contact your OB provider if you feel you may be showing signs of depression, or have thoughts of harming yourself or your . If infant will not stop crying, contact another adult for help or place in their crib on their back and take a break. NEVER shake your . WOUND CARE For Vaginal Delivery: Shower daily, and cleanse your perineum (bottom) with mild soap from front to Back. Use the plasticsquirt bottle until bleeding stops each time you use the restroom instead of wiping with toilet paper. Ease soreness of hemorrhoids and the area between your vagina and rectum with ice compresses or witch eric pads. If used, stitches will dissolve in 4-6 weeks on their own. You may use a sitz bath or soak in a clean tub with drain open and water running for comfort. Kegel exercises will help restore bladder control. To do these tighten your muscles as if you were stopping your urine flow. Hold for a few seconds and then relax. Do these throughout the day. For Section Delivery: Keep your incision clean and dry. If you had steri-strips you may remove these once they start falling off. If you have sy they need to be removed 3-10 days after delivery. If you have steri-strips, remove after 7 - 10 days. Do not wear clothing that irritates the incision line. If your incision in in a crease that is not dry, use a hair-dryer to dry the area 3 times a day. If you develop fever, shaking chills, redness, swelling, drainage or discharge from your wound, or if your wound looks like it's coming apart call your doctor immediately. BREAST CARE If you develop a warm, red, tender area on your breast or develop a fever contact your doctor. For moms: If you become engorged, feeding may be more difficult or painful for 1-2 days. You may find it helpful to hand express some milk so that the can latch on more easily or ease soreness with wet,warm washcloths. While , continue to take your vitamins as directed by your doctor. For non- moms: You may apply ice packs to your breasts over you bra for twenty minutes at a time for comfort. Cabbage leaves may be applied to breasts, replace when wilted. Avoid stimulation to your breasts, when showering allow the water to strike your back not your breasts. Do not express milk or your body will make more. Wear a good fitting bra until your milk dries, such as a sports bra. DIET & CONSTIPATION Eat a well balanced diet focusing on foods high in fiber and protein such as: whole grain cereals and breads, fruits and vegetables and legumes (eg, beans, lentils) Drink 8-10 glasses of fluids daily, especially water. To avoid constipation you may take a mild gyho-drv-revjity stool softener (such as colace) as recommended by your doctor. SWELLING Try to keep your legs elevated when you are sitting or lying down. Stay hydrated and take walks. BABY Babies sleep safest on their back in a crib without bumpers, blankets or stuffed animals. Do not sleep with your baby in your bed or the couch. Do not expose baby to smoke, this can increase risks of asthma and sudden infant syndrome. Ifyou or someone around baby smokes have them change their shirt and wash any facial hair before holding baby. Do not smoke inside the house and change the ventilation filters in the house before bringing baby home. WHEN TO CALL THE DOCTOR Signs of infection, including fever and chills Increased bleeding: soaking more than one sanitary pad an hour Wounds that become red, swollen or drain pus Vaginal discharge that smells foul New pain, swelling, or tenderness in your legs Pain that you can't control with the medications you've been given Pain, burning, urgency or frequency of urination, or persistent bleeding in the urine Cough, shortness of breath, or chest pain Depression, suicidal thoughts, or feelings of harming your baby Breasts that are hot, red and accompanied by fever Any cracking or bleeding from the nipple or areola (the dark-colored area of the breast) In case of an emergency, call 911 immediately. documented in this encounter History of Present Illness * Olamide Morales MD - 01/13/2019 9:32 AM EDT Patient seen and evaluated. She is feeling well and would like to go home. Requested follow up withDr. Burkett. Circumcision not performed per patient due to infant size. Her vital signs are stable and no sign of infection or intraabdominal pathology. Stable for discharge today. Follow up for incision check with Dr. Burkett in 1 week. * Aden Amin DO - 01/13/2019 5:57 AM EDT POST DAY # 3 Mimi Reno is a 28 y.o. female This patient was seen & examined today. Her was complicated by: Patient Active Problem List Diagnosis affected by growth restriction Today she is doing well without any chief complaint. Her lochia is light. She denies chest pain, shortness of breath, headache, lightheadedness, blurred vision, peripheral edema and palpitations. Sheis ambulating well. Flatus present. Bowel movement present. Voiding without difficulty yes. She is t olerating solids. Pain is controlled yes. Vital Signs: Vitals: 01/11/19 1726 01/11/19 2026 01/12/19 0811 01/12/192023 BP: 121/63 (!) 102/55 (!) 112/53 131/70 Pulse: 69 80 69 95 Resp: 16 16 16 20 Temp: 98.3 F (36.8 C) 98.3 F (36.8 C) 97.2 F (36.2 C) 98.2 F (36.8 C) TempSrc: Temporal Temporal Temporal Temporal SpO2: 99% 98% 100% 95% Weight: Height: Urine Input & Output last 24hrs: No intake or output data in the 24 hours ending 01/13/19 0557 Physical Exam: General: awake, alert, cooperative, no apparent distress, and appears stated age and cooperative Affect: appropriate Lungs: No increased work of breathing, good air exchange, clear to auscultation bilaterally, no crackles or wheezing Heart: Normal apical impulse, regular rate and rhythm, normal S1 and S2, no S3 or S4, and no murmurnoted Abdomen: Abdomen soft, non-tender. BS normal. No masses, No organomegaly Fundus: normal size, well involuted, firm, non-tender, below umbilicus Incision: clean, dry and intact Extremities: no cyanosis, clubbing or edema present , no calf tenderness Labs: Lab Results Component Value Date WBC 14.6 (H) 01/10/2019 HGB 10.7 (L) 01/11/2019 HCT 39.0 01/10/2019 MCV 93.0 01/10/2019 PLT 183 01/10/2019 O POS Antibody Screen: Antibody Screen Date Value Ref Range Status 01/10/2019 NEG NA Final Comment: Test Performed by [facility], [address] [place] [id number] No results found for: RUBELLAIGG LABOR DELIVERY ??? SCD's ONLY (labor through ambulation) SCD's PLUS Prophylactic Anticoagulation until discharge SCD's PLUS Prophylactic Anticoagulation for 6 weeks SCD's PLUS Therapeutic Anticoagulation for 6 weeks Vaginal Delivery [] BMI ? 40 kg/m2 Delivery All patients Vaginal Delivery [] BMI ? 40 kg/m2 AND [] Antepartum hospitalization ? 72 hours within the past month Delivery 1 Major Risk Factor: [] BMI ? 35 kg/m2 [] Low Risk Thrombophilia [] PPH+RBCs, IR, or operation [] Infection+Antibiotics [] Antepartum hospitalization ? 72 hours within the past month [] PMH: Sickle Cell, SLE, Cardiac Dz, Active IBD, Active Cancer, Nephrotic Syndrome OR 2 Minor Risk Factors: [] Multiple gestation [] Age > 40 [] PPH ? 1,000cc [] (+)FMH of VTE [] Smoker [] Preeclampsia [] BMI ? 40 kg/m2 AND [] Low Risk Thrombophilia OR ANY OF THE FOLLOWING: [] High Risk Thrombophilia without prior VTE [] Low Risk Thrombophilia with (+)FMH of VTE [] Any single prior VTE ANY OF THE FOLLOWING: [] Already on LMWH/UFH [] Multiple prior VTE [] High Risk Thrombophilia with prior VTE Low Risk Thrombophilia: FVL (heterozygous), Prothrombin (heterozygous), Protein C, Protein S High Risk Thrombophilia: FVL (homozygous), Prothrombin (homozygous), FVL+Prothrombin (heterozygous), Antithrombin III, APLS Assessment/Plan: 1. Mimi Reno is a POD # 3 s/p RLTCS @ 36w4d 2/2 FGR and [place] - Doing well, VSS - Male - Encourage ambulation and use of incentive spirometer - post-op hgb 10.7 2. PPH - EBL 700ml but QBL 1110ml - brisk bleeding noted at right inferior hysterotomy angle requiring figure of eight and then [place] - no uterine atony noted and no additional uterotonic required other than standard pitocin - Bleeding overnight wnl - VSS 3. Possible Autoimmune Disorder - Hx hypothyroidism - Raynauds (hands/feet), facial erythema and rash history with oral mucosa sores - TSH wnl - JAMI, cardiolipin Abs, Beta-2 Glycoprotein and Lupus anticoagulant pending 4. Hypothyroidism - continue home synthroid 5. Breast feeding 6. Contraception: Per private attending 7. VTE Prophylaxis: Not Indicated 8. Anticipate discharge home per private attending Provider's Name: MD Aden Brasher DO 01/13/2019, 5:57 AM * Pauline Reddy RN - 01/12/2019 9:01 AM EDT continues to nurse well, swallowing frequently. Output is adequate. Reviewed feeding patterns for late , output parameters, introducing a bottle and pacifier after bf is established. Encouraged mothers group for weight checks. Shown section of Taking Care of Yourself and Baby booklet.Reviewed: output parameters, contact information, and bf mothers group. Encouraged patient to call for assistance prn. Patient verbalized understanding. * Lavonne Kay MD - 01/11/2019 6:55 PM EDT POST DAY # 2 Mimi Reno is a 28 y.o. female This patient was seen & examined today. Her was complicated by: Patient Active Problem List Diagnosis affected by growth restriction She is doing well today without any complaints. Vital Signs: Vitals: 01/11/19 0338 01/11/19 0906 01/11/19 1726 01/11/196 BP: (!) 100/50 (!) 108/49 121/63 (!) 102/55 Pulse: 73 69 69 80 Resp: 18 16 16 16 Temp: 98.3 F (36.8 C) 98 F (36.7 C) 98.3 F (36.8 C) 98.3 F (36.8 C) TempSrc: Temporal Temporal Temporal SpO2: 96% 96% 99% 98% Weight: Height: Physical Exam: General: no apparent distress, alert and cooperative Abdomen: abdomen soft, non-distended, non-tender Fundus: non-tender, normal size, firm, below umbilicus Incision: dressing in place, clean, dry and intact Assessment/Plan: 1. Mimi Reno is a POD # 2 s/p RLTCS @36w4d 2/2 FGR and [place] - Doing well, VSS - Male - Encourage ambulation and use of incentive spirometer - post-op hgb 10.7 2. PPH - EBL 700ml but QBL 1110ml - brisk bleeding noted at right inferior hysterotomy angle requiring figure of eight and then [place] - no uterine atony noted and no additional uterotonic required other than standard pitocin - Bleeding overnight wnl - VSS 3. Possible Autoimmune Disease - Hx hypothyroidism - Raynauds (hands/feet), facial erythema and rash history with oral mucosa sores - TSH wnl - JAMI, cardiolipin Abs, Beta-2 Glycoprotein and Lupus anticoagulant pending 4. Hypothyroidism - continue home synthroid 5. Contraception: Per private attending 6. VTE Prophylaxis: Not Indicated 7. Continue current care Mimi was seen this AM by me. She is doing well. Incision is C/D/I with steri strips on. Meeting all POD2 recovery criteria. Autoimmune labs still pending. Will stay overnight due to having some hypoglycemia overnight. 15min time * Martha Vega DTR - 01/11/2019 10:05 AM EDT Nutrition rescreen completed. Patient assigned a level 1. * Pauline Reddy RN - 01/11/2019 9:44 AM EDT Mom states infant finished the feeding, nursed well for 15 min. On BGT protocol and parents are concerned about getting the testing finished. Showed mom how to hand express onto a spoon, fed infant 5cc from a spoon of ANNA. Colostrum was plentiful and easily obtained. Baby placed skin to skin with mom, encouraged parents to keep baby skin to skin while on BGT protocol, educated on the benefits of skin to skin. Encouraged to call for next feeding for assessment of latch and feeding. * Rosi Li MD - 01/11/2019 6:13 AM EDT POST DAY # 1 Mimi Reno is a 28 y.o. female This patient was seen & examined today. Her was complicated by: Patient Active Problem List Diagnosis affected by growth restriction Today she is doing well without any chief complaint. Her lochia is light. She denies chest pain, shortness of breath, headache, lightheadedness, blurred vision, peripheral edema and palpitations. Sheis ambulating well. Flatus present. Bowel movement absent. Voiding without difficulty yes. She is to lerating solids. Pain is controlled yes. Vital Signs: Vitals: 01/10/19 1515 01/10/19 2102 01/10/19 2334 01/11/19 0338 BP: 114/63 (!) 100/50 Pulse: 77 73 Resp: 18 18 Temp: 98.2 F (36.8 C) 97.7 F (36.5 C) 98.3 F (36.8 C) TempSrc: Temporal Temporal SpO2: 96% 96% Weight: 176 lb (79.8 kg) Height: 5' 4 (1.626 m) Urine Input & Output last 24hrs: Intake/Output Summary (Last 24 hours) at 01/11/2019 0437 Last data filed at 01/10/2019 2255 Gross per 24 hour Intake 1200 ml Output 2660 ml Net -1460 ml Physical Exam: General: awake, alert, cooperative, no apparent distress, and appears stated age and cooperative Affect: appropriate Lungs: No increased work of breathing, good air exchange, clear to auscultation bilaterally, no crackles or wheezing Heart: Normal apical impulse, regular rate and rhythm, normal S1 and S2, no S3 or S4, and no murmurnoted Abdomen: Abdomen soft, non-tender. BS normal. No masses, No organomegaly Fundus: normal size, well involuted, firm, non-tender, below umbilicus Incision: clean, dry and intact Extremities: no cyanosis, clubbing or edema present , no calf tenderness Labs: Lab Results Component Value Date WBC 14.6 (H) 01/10/2019 HGB 13.2 01/10/2019 HCT 39.0 01/10/2019 MCV 93.0 01/10/2019 PLT 183 01/10/2019 O POS Antibody Screen: Antibody Screen Date Value Ref Range Status 01/10/2019 NEG NA Final Comment: Test Performed by [facility], [address] [place] [id number] No results found for: RUBELLAIGG LABOR DELIVERY ??? SCD's ONLY (labor through ambulation) SCD's PLUS Prophylactic Anticoagulation until discharge SCD's PLUS Prophylactic Anticoagulation for 6 weeks SCD's PLUS Therapeutic Anticoagulation for 6 weeks Vaginal Delivery [] BMI ? 40 kg/m2 Delivery All patients Vaginal Delivery [] BMI ? 40 kg/m2 AND [] Antepartum hospitalization ? 72 hours within the past month Delivery 1 Major Risk Factor: [] BMI ? 35 kg/m2 [] Low Risk Thrombophilia [] PPH+RBCs, IR, or operation [] Infection+Antibiotics [] Antepartum hospitalization ? 72 hours within the past month [] PMH: Sickle Cell, SLE, Cardiac Dz, Active IBD, Active Cancer, Nephrotic Syndrome OR 2 Minor Risk Factors: [] Multiple gestation [] Age > 40 [] PPH ? 1,000cc [] (+)FMH of VTE [] Smoker [] Preeclampsia [] BMI ? 40 kg/m2 AND [] Low Risk Thrombophilia OR ANY OF THE FOLLOWING: [] High Risk Thrombophilia without prior VTE [] Low Risk Thrombophilia with (+)FMH of VTE [] Any single prior VTE ANY OF THE FOLLOWING: [] Already on LMWH/UFH [] Multiple prior VTE [] High Risk Thrombophilia with prior VTE Low Risk Thrombophilia: FVL (heterozygous), Prothrombin (heterozygous), Protein C, Protein S High Risk Thrombophilia: FVL (homozygous), Prothrombin (homozygous), FVL+Prothrombin (heterozygous), Antithrombin III, APLS Assessment/Plan: 1. Mimi Reno is a POD # 1 s/p RLTCS @36w4d 2/2 FGR and [place] - Doing well, VSS - Male - Encourage ambulation and use of incentive spirometer - D/C mix catheter and saline lock IV on POD #1 - post-op hgb 10.7 2. PPH - EBL 700ml but QBL 1110ml - brisk bleeding noted at right inferior hysterotomy angle requiring figure of eight and then [place] - no uterine atony noted and no additional uterotonic required other than standard pitocin - Bleeding overnight wnl - VSS 3. Possible Autoimmune Disease - Hx hypothyroidism - Raynauds (hands/feet), facial erythema and rash history with oral mucosa sores - TSH, JAMI, cardiolipin Abs, Beta-2 Glycoprotein and Lupus anticoagulant pending 4. Hypothyroidism - continue home synthroid 5. Contraception: Per private attending 6. VTE Prophylaxis: Not Indicated 7. Continue current care Provider's Name: MD Aden Brasher DO 01/11/2019, 4:37 AM * Jenny Rojas RN - 01/10/2019 11:00 PM EDT Pads, panties, and clean linens applied. Pt able to reposition in bed well. Binder applied. Mix emptied. Pt sat up in bed to eat meal tray. documented in this encounter Assessments Diagnosis affected by growth restriction Advance Directives No Advanced Directives Records FoundDocuments on File Type Date Recorded Patient Assessor Expl anation Advance Directives and Living Will Power of Intelligence Specialist Latest Code Status on File Code Status Date Activated Date Inactivated Comments Full Code 01/11/2019 1:06 AM Full Code 01/10/2019 4:10 PM 01/11/2019 1:06 AM Summary Purpose Family History No Family History Records FoundNo Family History Records FoundNo Family History Records FoundNo Family History Records FoundNo Family History Records FoundNo Family History Records FoundNo Family History Records Found Reason for Referral Specialty Diagnoses / Procedures Referred By Dion collado Referred To Contact [facility] Diagnoses Cervicogenic headache Procedures PT REHAB FOLLOW UP ORDER THERAPEUTIC EXERCISES RE, EA 15 MIN. Pt [place] [address] [place] [address] [facility] [place] [address] [place] [address] [place] [address] Referral ID Status Reason Start Date Expiration Date Visits Requested Visits Authorized [id number] Pending Review PCP Requested Referral Auto-Generate d Referral 11/20/2022 02/18/2023 1 1 Specialty Diagnoses / Procedures Referred By Contac t Referred To Contact MR IMAGING Diagnoses Demyelinating disease of central nervous system (HCC) Procedures MRI BRAIN WO/W IVCON MRI BRAIN BRAIN STEM W/O W/CONTRAST MATERIAL Genet Denton PA-C [address] [id number] Mr Imaging [facility]95 Referral ID Status Reason Start Date Expiration Date V isits Requested Visits Authorized [id number] Closed Auto-Generate d Referral 11/14/2022 12/14/2023 1 1 Specialty Diagnoses / Procedures Referred By Contac t Referred To Contact MR IMAGING Diagnoses Demyelinating disease of central nervous system (HCC) Procedures MRI CERVICAL SPINE WO/W IVCON MRI SPINAL CANAL CERVICAL W/O & W/CONTR MATRL Genet Denton PA-C [address] [place] [address] [place] [address] Referral ID Status Reason Start Date Expiration Date V isits Requested Visits Authorized [id number] Closed Auto-Generate d Referral 11/14/2022 12/14/2023 1 1 Additional Source Comments INFORMATION SOURCE (unrecogn ized section and content) DATE CREATED AUTHOR AUTHOR'S ORGANIZ ATION 02/08/2019 [facility] DATE CREATED AUTHOR AUTHOR'S ORGANIZ ATION 02/28/2019 [facility] DATE CREATED AUTHOR AUTHOR'S ORGANIZ ATION 05/05/2020 [facility] DATE CREATED AUTHOR AUTHOR'S ORGANIZ ATION 05/05/2020 [facility] DATE CREATED AUTHOR AUTHOR'S ORGANIZ ATION 05/25/2023 [facility] DATE CREATED AUTHOR AUTHOR'S ORGANIZ ATION 07/07/2023 [facility] Source Comments (unrecognize d section and content) In the event this informatio n is protected by the Federal Confidentiality of Alcohol and Drug Abuse Patient Records regulations: The Federal rules restrict any use of the information to criminally investigate or prosecute any alcohol or drug abuse patient.[facility] the event this information is protected by the Federal Confidentiality of Alcohol and Drug Abuse Patient Records regulations: The Federal rules restrict any use of the information to criminally investigate or prosecute any alcohol or drug abuse patient.[facility] the event this information is protected by the Federal Confidentiality of Alcohol and Drug Abuse Patient Records regulations: The Federal rules restrict any use of the information to criminally investigate or prosecute any alcohol or drug abuse patient.[facility] the event this information is protected by the Federal Confidentiality of Alcohol and Drug Abuse Patient Records regulations: The Federal rules restrict any use of the information to criminally investigate or prosecute any alcohol or drug abuse patient.[facility] the event this information is protected by the Federal Confidentiality of Alcohol and Drug Abuse Patient Records regulations: The Federal rules restrict any use of the information to criminally investigate or prosecute any alcohol or drug abuse patient.[facility] the event this information is protected by the Federal Confidentiality of Alcohol and Drug Abuse Patient Records regulations: The Federal rules restrict any use of the information to criminally investigate or prosecute any alcohol or drug abuse patient.[facility] the event this information is protected by the Federal Confidentiality of Alcohol and Drug Abuse Patient Records regulations: The Federal rules restrict any use of the information to criminally investigate or prosecute any alcohol or drug abuse patient.[facility] the event this information is protected by the Federal Confidentiality of Alcohol and Drug Abuse Patient Records regulations: The Federal rules restrict any use of the information to criminally investigate or prosecute any alcohol or drug abuse patient.[facility] the event this information is protected by the Federal Confidentiality of Alcohol and Drug Abuse Patient Records regulations: The Federal rules restrict any use of the information to criminally investigate or prosecute any alcohol or drug abuse patient.[facility] the event this information is protected by the Federal Confidentiality of Alcohol and Drug Abuse Patient Records regulations: The Federal rules restrict any use of the information to criminally investigate or prosecute any alcohol or drug abuse patient.[facility] the event this information is protected by the Federal Confidentiality of Alcohol and Drug Abuse Patient Records regulations: The Federal rules restrict any use of the information to criminally investigate or prosecute any alcohol or drug abuse patient.[facility] the event this information is protected by the Federal Confidentiality of Alcohol and Drug Abuse Patient Records regulations: The Federal rules restrict any use of the information to criminally investigate or prosecute any alcohol or drug abuse patient.[facility] the event this information is protected by the Federal Confidentiality of Alcohol and Drug Abuse Patient Records regulations: The Federal rules restrict any use of the information to criminally investigate or prosecute any alcohol or drug abuse patient.[facility] the event this information is protected by the Federal Confidentiality of Alcohol and Drug Abuse Patient Records regulations: The Federal rules restrict any use of the information to criminally investigate or prosecute any alcohol or drug abuse patient.[facility] the event this information is protected by the Federal Confidentiality of Alcohol and Drug Abuse Patient Records regulations: The Federal rules restrict any use of the information to criminally investigate or prosecute any alcohol or drug abuse patient.[facility] Hospital[facility] the event this information is protected by the Federal Confidentiality of Alcohol and Drug Abuse Patient Records regulations: The Federal rules restrict any use of the information to criminally investigate or prosecute any alcohol or drug abuse patient.[facility] Hospital[facility] the event this information is protected by the Federal Confidentiality of Alcohol and Drug Abuse Patient Records regulations: The Federal rules restrict any use of the information to criminally investigate or prosecute any alcohol or drug abuse patient.[facility] the event this information is protected by the Federal Confidentiality of Alcohol and Drug Abuse Patient Records regulations: The Federal rules restrict any use of the information to criminally investigate or prosecute any alcohol or drug abuse patient.[facility] the event this information is protected by the Federal Confidentiality of Alcohol and Drug Abuse Patient Records regulations: The Federal rules restrict any use of the information to criminally investigate or prosecute any alcohol or drug abuse patient.[facility] HospitalIn the event this information is protected by the Federal Confidentiality of Alcohol and Drug Abuse Patient Records regulations: The Federal rules restrict any use of the information to criminally investigate or prosecute any alcohol or drug abuse patient.[facility] Hospital[facility] the event this information is protected by the Federal Confidentiality of Alcohol and Drug Abuse Patient Records regulations: The Federal rules restrict any use of the information to criminally investigate or prosecute any alcohol or drug abuse patient.[facility] HospitalIn the event this information is protected by the Federal Confidentiality of Alcohol and Drug Abuse Patient Records regulations: The Federal rules restrict any use of the information to criminally investigate or prosecute any alcohol or drug abuse patient.[facility] the event this information is protected by the Federal Confidentiality of Alcohol and Drug Abuse Patient Records regulations: The Federal rules restrict any use of the information to criminally investigate or prosecute any alcohol or drug abuse patient.[facility] Hospital[facility] the event this information is protected by the Federal Confidentiality of Alcohol and Drug Abuse Patient Records regulations: The Federal rules restrict any use of the information to criminally investigate or prosecute any alcohol or drug abuse patient.[facility] Care Teams (unrecognized sec tion and content) Polygraph Examiner Relationship Specialty Start Date End Date Brendon Pretty MD [address] [place] [address] PCP - General [facility] 04/20/14 Polygraph Examiner Relationship Specialty Start Date End Date Brendon Pretty MD [address] [place] [id number] PCP - General [facility] 04/20/14 Polygraph Examiner Relationship Specialty Start Date End Date Brendon Pretty MD [address] [place] [id number] PCP - General Family Medicine 04/20/14 Polygraph Examiner Relationship Specialty Start Date End Date Brendon Pretty MD [address] [place] [address], [place] [address] PCP - General Family Medicine 04/20/14 Polygraph Examiner Relationship Specialty Start Date End Date Brendon Pretty MD [address] [place] [address] [place] [address] PCP - General Family Medicine 04/20/14 Polygraph Examiner Relationship Specialty Start Date End Date Brendon Pretty MD [address] [place] [address] [place] [address] PCP - General Family Medicine 04/20/14 Polygraph Examiner Relationship Specialty Start Date End Date Brendon Pretty MD [address] [place] [address] [place] [address] PCP - General Family Medicine 04/20/14 Polygraph Examiner Relationship Specialty Start Date End Date Brendon Pretty MD [address] [facility] [place] [address] PCP - General Family Medicine 04/20/14 Polygraph Examiner Relationship Specialty Start Date End Date Brendon Pretty MD [address] [place] [address] PCP - General Family Medicine 04/20/14 Polygraph Examiner Relationship Specialty Start Date End Date Brendon Pretty MD [address] [facility] [place] [address] PCP - General Family Medicine 04/20/14 Polygraph Examiner Relationship Specialty Start Date End Date Brendon Pretty MD [address] [place] [address] PCP - General Family Medicine 04/20/14 Polygraph Examiner Relationship Specialty Start Date End Date Brendon Pretty MD [address] [place] [address] PCP - General Family Medicine 04/20/14 Polygraph Examiner Relationship Specialty Start Date End Date Brendon Pretty MD [address] [place] [address] PCP - General Family Medicine 04/20/14 Polygraph Examiner Relationship Specialty Start Date End Date Brendon Pretty MD [address] [place] [address] PCP - General Family Medicine 04/20/14 Polygraph Examiner Relationship Specialty Start Date End Date Brendon Pretty MD [address] [place] [address] PCP - General Family Medicine 04/20/14 Polygraph Examiner Relationship Specialty Start Date End Date Brendon Pretty MD [address] [place] [address] PCP - General Family Medicine 04/20/14 Polygraph Examiner Relationship Specialty Start Date End Date Brendon Pretty MD [address] [place], [place] [id number] PCP - General Family Medicine 04/20/14 Polygraph Examiner Relationship Specialty Start Date End Date Brendon Pretty MD [address] [place], [place] [id number] PCP - General Family Medicine 04/20/14 Reason for Visit (unrecogniz ed section and content) Specialty Diagnoses / Procedures Referred By Dion collado Referred To Contact PHYSICAL THERAPY Diagnoses Cervicogenic headache Procedures CONSULT TO PHYSICAL THERAPY PHYSICAL THERAPY EVALUATION HIGH COMPLEX 45 MINS Genet Denton PA-C [address] [place] [address] Zita Velasco, PT, DPT [address] [place] [address] Referral ID Status Reason Start Date Expiration Date Visits Requested Visits Authorized [id number] Authorized Auto-Generat ed Referral 11/14/2022 05/06/2023 1 25 Reason Comments Rash Rash all over and sp reading, itches, burning, possible poison [place] x 1 week Reason Comments Physical Has form for complet ion Reason Comments UTI Lower back pain. Den ies dysuria. States it hurts to hold her kids. Reason Comments Erroneous encounter-disregard Reason Comments Hives Over body X 2 days Reason Comments Results Reason Onset Date Comments Refill Request 07/10/2022 Reason Comments PT Eval Specialty Diagnoses / Procedures Referred By Dion collado Referred To Contact PHYSICAL THERAPY Diagnoses Cervicogenic headache Procedures CONSULT TO PHYSICAL THERAPY PHYSICAL THERAPY EVALUATION HIGH COMPLEX 45 MINS Genet Denton PA-C [address] [place] [address] Zita Velasco, PT, DPT [address] [place] [address] Reason Comments Physical Therapy Reason Onset Date Comments Refill Request 01/11/2023 Specialty Diagnoses / Procedures Referred By Contac t Referred To Contact MR IMAGING Diagnoses Demyelinating disease of central nervous system (HCC) Procedures MRI BRAIN WO/W IVCON MRI BRAIN BRAIN STEM W/O W/CONTRAST MATERIAL Genet Denton PA-C [address] [place], [place] [phone] Mr Imaging [facility]95 Referral ID Status Reason Start Date Expiration Date V isits Requested Visits Authorized [id number] Closed Auto-Generate d Referral 11/14/2022 12/14/2023 1 1 Specialty Diagnoses / Procedures Referred By Contac t Referred To Contact MR IMAGING Diagnoses Demyelinating disease of central nervous system (HCC) Procedures MRI CERVICAL SPINE WO/W IVCON MRI SPINAL CANAL CERVICAL W/O & W/CONTR MATRL Genet Denton PA-C [address] [phone] Mr Imaging [facility]95 Referral ID Status Reason Start Date Expiration Date V isits Requested Visits Authorized [id number] Closed Auto-Generate d Referral 11/14/2022 12/14/2023 1 1 Reason Comments Acute Visit L ear pain/sinus pre ssure and pressure in both ears; treated for sinus infection in April; has not been getting any better; using [employer] FOR RECORDS PERTAINING TO PATIENTS WHO ARE OR HAVE BEEN ENROLLED IN A CHEMICAL DEPENDENCY/SUBSTANCEABUSE PROGRAM, SOME INFORMATION MAY BE OMITTED. This clinical summary was aggregated from multiple sources. Caution should be exercised in using it in the provision of clinical care. This summary normalizes information from multiple sources, and as a consequence, information in this document may materially change the coding, format and clinical context of patient data. In addition, data may be omitted in some cases. CLINICAL DECISIONS SHOULD BE BASED ON THE PRIMARY CLINICAL RECORDS. [employer] [facility]. provides no warranty or guarantee of the accuracy or completeness of information in this document.
[2023-07-14 12:32] LABS: hCG Titer Quant., Serum 1627 mIU/mL (1-3)
== END | disposition home or self-care (01) ==
LOC: LAB 11:02
PROVIDERS: PCP Family Medicine; Referring Provider Registered Nurse; Visit Provider Registered Nurse
DX: O26.859 Spotting 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 pregnancy, unspecified trimester (principal); Z87.59 Personal history of other complications of pregnancy, childbirth and the puerperium; Z3A.00 Weeks of gestation of pregnancy not specified
CPT/HCPCS: 36415; 84702

== ENCOUNTER 2023-07-16 18:11 | Emergency (ER) | payer OTHER, SELFPAY ==
[2023-07-16 18:11] VITALS: BP 123/75; PULSE 72; RESP 14; TEMP 37.2; O2SAT 100; BMI 26.6
--- NOTE | 2023-07-16 18:50 | US_ITS ---
We are attempting to reach an attending provider to discuss findings. An addendum with communication details will be sent when the communication is complete. STUDY: FIRST TRIMESTER OBSTETRICAL ULTRASOUND REASON FOR EXAM: Female, 33 years old vaginal bleeding LMP: 05/24/2023 TECHNIQUE: Transvaginal TECHNICAL QUALITY: Adequate. PRIOR ULTRASOUND: None. FINDINGS: There is visualization of a single gestational sac in a normal intrauterine position. The mean sac diameter (MSD) measures 7 mm, indicating an estimated gestational age (EGA) of 5 weeks, 3 days. The gestational sac shape is within normal limits. There is a visualized yolk sac. The yolk sac measures 3 mm. The placenta is non-visualized. There is visualization of an embryo with no cardiac activity, consistent with intrauterine demise. The crown-rump length (CRL) measures 3 mm, indicating an estimated gestational age (EGA) of 6 weeks, 1 days. pm. The estimated gestation age (EGA) by LMP is 7 weeks, 4 days. The estimated date of delivery (MARGUERITE) by LMP is 02/28/2024. The estimated gestation age (EGA) by US is 5 weeks, 6 days. The estimated date of delivery (MARGUERITE) by US is 03/11/2024. The uterus measures 8.0 x 5.5 x 6.5 cm. There is no demonstrated uterine fibroid. The cervix is closed. The right ovary measures 2.8 x 1.7 x 2.2 cm. There is no right ovarian cyst. There is no visualized right adnexal mass or complex lesion. The left ovary measures 2.2 x 1.0 x 1.5 cm. There is no left ovarian cyst. 4 cm oval anechoic mass with increased transmission adjacent the left ovary consistent with a par ovarian cyst. There is a moderate amount of fluid in the cul de sac. Fluid is echogenic worrisome for purulent or hemorrhagic fluid. US/Transvaginal w/Preg US IMPRESSION: 1. Intrauterine demise estimated gestational age 5 weeks 6 days as described above. 2. 4 cm left ovarian par ovarian cyst. 3. Moderate amount of echogenic fluid worrisome for hemorrhagic or purulent fluid. Clinical correlation is recommended. Electronically Signed: Santosh Cast MD at 20:34 EDT ,
--- NOTE | 2023-07-16 18:52 | EDS_ITS ---
HPI <HUMERA Tijerina - Last Filed: 07/16/23 21:17> HPI - Female History of Present Illness Chief Complaint: Vag Bld, Preg Narrative Narrative: Patient presenting today due to vaginal spotting that started last Sunday. She reports that it was not severe enough to have to wear a pad. Sunday she was sitting on the toilet and noticed a large amount of blood that was passed as well as a piece of tissue. She is currently 7.5 weeks , she has not had an ultrasound yet to confirm intrauterine . She is A1. She reports that on Sunday she began having left sharp and constant pelvic pain. Today, she had a serum quant hCG performed and her OB was concerned due to the number not being higher compared to her previous hCG. She reports that she has also had increased urinary frequency and low back pain, she did go to urgent care a few days ago and had a negative UA. She denies any fevers, chills, nausea, and vomiting. Her blood type is O+. PFSH <HUMERA Tijerina - Last Filed: 07/16/23 21:17> [facility] Medical History Anemia affecting delivery delivered History of oligohydramnios in prior , currently History of pre-term labor History of premature rupture of membranes (PPROM) History of prior with IUGR Hx of recurrent urinary tract infection IUGR (intrauterine growth restriction) in prior , Thyroid disorder Home Medications levothyroxine 150 mcg tablet 150 mcg PO DAILY hypothyorid 08/22/21 [History Last Taken 08/22/21] sertraline 25 mg tablet 25 mg PO DAILY anxiety #30 tabs 10/18/22 [Rx Last Taken Unknown] PNV 178-FA 180 mcg-om3 35 mg-dha 25 mg-epa 5 mg-fish oil chew tablet tab PO DAILY 07/13/23 [History Last Taken Unknown] ferrous sulfate 325 mg (65 mg iron) tablet 325 mg PO DAILY 07/13/23 [History Last Taken Unknown] Allergy/AdvReac Type Severity Reaction Status Date / Time nitrofurantoin Allergy Mild Hives Verified 07/16/23 18:16 Family History Father Diabetes Grandfather Diabetes Mother Seizures Surgical History S/P [place] teeth extracted Social History adopted: Yes (11yrs old) household members: spouse, family and children housing: house number of children: 3 current occupational status: employed 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 current 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/hazards: No pets and animals: Yes (cat and dog) pets and animals: cat(s), dog(s) and other details: rabbit history of recent travel: No sexually active: Yes Smoking Status: Never smoker alcohol intake: current alcohol intake frequency: holidays/special occasions only details: Not while substance use type: does not use well-balanced diet: daily or most days caffeine: Yes Type: coffee Number of servings: 1 eating out: rarely or never during the past year weight has: remained stable what type of physical activity do you participate in: bicycling, weight training and additional details: yuni frequency: 3-4 times per week duration: 15-30 minutes/day fatou/worship: L[employer] seatbelt use: always do you feel safe at home: Yes additional social history: -Stephen ROS <HUMERA Tijerina - Last Filed: 07/16/23 21:17> ROS ED Constitutional Constitutional ED: Denies chills or fever(s) Cardiovascular Cardiovascular: Denies chest pain Respiratory/Chest Respiratory/Chest: Denies cough or dyspnea Gastrointestinal Gastrointestinal: Reports abdominal pain; Denies nausea or vomiting Genitourinary Genitourinary ED: Reports urinary frequency and urinary urgency; Denies dysuria or hematuria Musculoskeletal Musculoskeletal: Denies arthralgias or myalgias Integumentary Denies rash Neurologic Neurologic: Denies weakness EXAM <HUMERA Tijerina - Last Filed: 07/16/23 21:17> Physical Exam Const Vital Signs: 07/16/23 18:11 07/16/23 19:17 07/16/23 21:14 Temperature 98.9 F 98.0 F Temperature Source Temporal Pulse Rate 72 67 73 Respiratory Rate 14 18 18 Blood Pressure 123/75 H 133/73 H 143/68 H Blood Pressure Mean 91 93 93 Pulse Ox 100 99 100 Oxygen Delivery Method Room Air Room Air Positive well nourished, well developed and no apparent distress General Appearance ED: well developed HEENT Reports normocephalic and head/scalp atraumatic Mouth ED: Yes moist mucous membranes normal Eyes PERRL and EOMs intact bilaterally Neck full ROM and supple Chest Wall inspection of chest normal Resp normal respiratory effort and clear to auscultation bilaterally Cardio regular rate and regular rhythm GI soft to palpation, non-distended and no masses GI Narrative: Minimal tenderness to left pelvic tenderness, no rigidity or guarding. Otherwise, abdomen soft and nontender. Back/Spine normal ROM and normal to inspection Extremity normal to inspection and full ROM Neuro oriented x3, CN's II-XII intact bilaterally, moves all extremities, no focal motor deficits and no sensory deficits noted Sensorium / Orientation: awake and alert Psych mental status grossly normal and thought process normal Skin no rashes or lesions noted and no wounds <Dr. Spenser Hsieh DO - Last Filed: 07/16/23 20:56> Physical Exam Const Vital Signs: 07/16/23 18:11 07/16/23 19:17 07/16/23 21:14 Temperature 98.9 F 98.0 F Temperature Source Temporal Pulse Rate 72 67 73 Respiratory Rate 14 18 18 Blood Pressure 123/75 H 133/73 H 143/68 H Blood Pressure Mean 91 93 93 Pulse Ox 100 99 100 Oxygen Delivery Method Room Air Room Air MDM <UHMERA Tijerina - Last Filed: 07/16/23 21:17> [facility] Narrative Medical decision making narrative: Patient presenting today after being sent in by [facility] to rule out miscarriage versus ectopic . Vaginal spotting started last Sunday, left lower quadrant pain started on Sunday. Pelvic ultrasound will be obtained as well as a UA and CBC to rule out infection. Ultrasound does show demise. The attending did speak with OB, they want patient to follow-up in the office this week. She has been given strict return instructions. She will be discharged home in stable condition and is comfortable with plan. I did offer analgesia for home, patient declines. I have personally performed a face to face assessment of the patient and have reviewed the HARPREET Note. I performed a substantive portion of the visit including all aspects of the following. My doyle findings include: History is [patient presents with vaginal bleeding and . Patient believes she is about 7 weeks . She is with 1 prior miscarriage. Patient states she started having small amount of spotting some brown fluid especially when she wiped about 5 days ago. Patient started having left lower abdomen pain about 3 days ago. She was seen by her SPECIALTY SALES CONSULTANT today and had a quantitative hCG that she believes was 1900 today and 2 days prior was 1600. There was concern for ectopic so she was referred to the emergency department. Patient has no prior history of ectopic . She is not passing clots. She has not had a pelvic ultrasound with this .] Exam is [HEENT-PERRLA, EOMI. Cranial nerves II through XII grossly intact. TMs clear. Mucous membranes moist. No adenopathy. Cardiovascular-regular rate and rhythm without murmur or ectopy Lungs-clear to auscultation, chest wall stable without crepitus or subcu emphysema Abdomen-normoactive bowel sounds, soft, nontender, no rebound or rigidity, no peritoneal signs. Mild tenderness over the left lower quadrant into the pelvis. There is no rebound, rigidity, or pineal signs. No mass palpated. Extremities-intact ?4, normal range of motion, normal pulses, atraumatic] Medical Decison Making [patient had CBC with differential that showed a white count 7.2 with hemoglobin of 12.2 and platelet count of 200. Urinalysis was unremarkable. Patient had had a quant earlier in the day and was 1900. She had a pelvic ultrasound that showed demise. I was called by Dr. Parra who had looked at the ultrasound results and noted that there was demise and patient had a left ovarian cyst but there was no evidence of ectopic. Radiology was in agreement with this that there was no evidence of ectopic. Dr. Parra would like to have patient follow-up in the office this week. Advised patient to return if persistent heavy bleeding, worsening pain, or condition worsening way.] Other additions or changes: [None] Lab Data Labs: Laboratory Results - last 24 hr 07/16/23 07/16/23 19:05 19:25 WBC 7.2 RBC 4.15 L Hgb 12.2 Hct 37.8 MCV 91.1 MCH 29.4 MCHC 32.3 RDW Std Deviation 46.5 H RDW Coeff of Shantel 13.8 Plt Count 200 MPV 11.3 Immature Gran % (Auto) 0.300 Neut % (Auto) 58.1 Lymph % (Auto) 31.4 Fajardo % (Auto) 6.5 Eos % (Auto) 3.3 Baso % (Auto) 0.4 Absolute Neuts (auto) 4.2 Absolute Lymphs (auto) 2.26 Nucleated RBC % 0 Platelet Estimate ADEQUATE RBC Morphology N CHROM Anisocytosis RARE Macrocytosis RARE Urine Color Yellow Urine Clarity Clear Urine pH 6.5 Ur Specific Vader 1.020 Urine Protein 15 H Urine Glucose (UA) Normal Urine Ketones Negative Urine Occult Blood Negative Urine Nitrite Negative Urine Bilirubin Negative Urine Urobilinogen Normal Ur Leukocyte Esterase Negative Urine RBC 0 SEEN Urine WBC 0 SEEN Ur Squamous Epith Cells 0 SEEN Urine Bacteria 0 SEEN Urine Mucus 0 SEEN Radiography Diagnostic Testing: Clinical Impression(s) from Imaging Studies Obstetrics Ultrasound 07/16/23 18:50 IMPRESSION: 1. Intrauterine demise estimated gestational age 5 weeks 6 days as described above. 2. 4 cm left ovarian par ovarian cyst. 3. Moderate amount of echogenic fluid worrisome for hemorrhagic or purulent fluid. Clinical correlation is recommended. Electronically Signed: Santosh Cast MD at 20:34 EDT , ADDENDUM: 07/16/232054 IMPRESSION: 1. Intrauterine demise estimated gestational age 5 weeks 6 days as described above. 2. 4 cm left ovarian par ovarian cyst. 3. Moderate amount of echogenic fluid worrisome for hemorrhagic or purulent fluid. Clinical correlation is recommended. N.B. : The above Results were Read Back by Santosh Cast MD to Spenesr Galarza MD, and understanding confirmed on 07/16/2023 20:48:55 (ET). Electronically Signed: Santosh Cast MD at 20:34 EDT Reading Location ID and State: [id number] / [employer] , Service support , <Dr. Spenser Hsieh, DO - Last Filed: 07/16/23 20:56> MDM MDM Narrative Medical decision making narrative: Patient presenting today after being sent in by [facility] to rule out miscarriage versus ectopic . Vaginal spotting started last Sunday, left lower quadrant pain started on Sunday. Pelvic ultrasound will be obtained as well as a UA and CBC to rule out infection. I have personally performed a face to face assessment of the patient and have reviewed the HARPREET Note. I performed a substantive portion of the visit including all aspects of the following. My doyle findings include: History is [patient presents with vaginal bleeding and . Patient believes she is about 7 weeks . She is with 1 prior miscarriage. Patient states she started having small amount of spotting some brown fluid especially when she wiped about 5 days ago. Patient started having left lower abdomen pain about 3 days ago. She was seen by her SPECIALTY SALES CONSULTANT today and had a quantitative hCG that she believes was 1900 today and 2 days prior was 1600. There was concern for ectopic so she was referred to the emergency department. Patient has no prior history of ectopic . She is not passing clots. She has not had a pelvic ultrasound with this .] Exam is [HEENT-PERRLA, EOMI. Cranial nerves II through XII grossly intact. TMs clear. Mucous membranes moist. No adenopathy. Cardiovascular-regular rate and rhythm without murmur or ectopy Lungs-clear to auscultation, chest wall stable without crepitus or subcu emphy sema Abdomen-normoactive bowel sounds, soft, nontender, no rebound or rigidity, no peritoneal signs. Mild tenderness over the left lower quadrant into the pelvis. There is no rebound, rigidity, or pineal signs. No mass palpated. Extremities-intact ?4, normal range of motion, normal pulses, atraumatic] Medical Decison Making [patient had CBC with differential that showed a white count 7.2 with hemoglobin of 12.2 and platelet count of 200. Urinalysis was unremarkable. Patient had had a quant earlier in the day and was 1900. She had a pelvic ultrasound that showed demise. I was called by Dr. Parra who had looked at the ultrasound results and noted that there was demise and patient had a left ovarian cyst but there was no evidence of ectopic. Radiology was in agreement with this that there was no evidence of ectopic. Dr. Parra would like to have patient follow-up in the office this week. Advised patient to return if persistent heavy bleeding, worsening pain, or condition worsening way.] Other additions or changes: [None] Lab Data Attestation: I reviewed the patient's lab results. Labs: Laboratory Results - last 24 hr 07/16/23 07/16/23 19:05 19:25 WBC 7.2 RBC 4.15 L Hgb 12.2 Hct 37.8 MCV 91.1 MCH 29.4 MCHC 32.3 RDW Std Deviation 46.5 H RDW Coeff of Shantel 13.8 Plt Count 200 MPV 11.3 Immature Gran % (Auto) 0.300 Neut % (Auto) 58.1 Lymph % (Auto) 31.4 Fajardo % (Auto) 6.5 Eos % (Auto) 3.3 Baso % (Auto) 0.4 Absolute Neuts (auto) 4.2 Absolute Lymphs (auto) 2.26 Nucleated RBC % 0 Platelet Estimate ADEQUATE RBC Morphology N CHROM Anisocytosis RARE Macrocytosis RARE Urine Color Yellow Urine Clarity Clear Urine pH 6.5 Ur Specific Vader 1.020 Urine Protein 15 H Urine Glucose (UA) Normal Urine Ketones Negative Urine Occult Blood Negative Urine Nitrite Negative Urine Bilirubin Negative Urine Urobilinogen Normal Ur Leukocyte Esterase Negative Urine RBC 0 SEEN Urine WBC 0 SEEN Ur Squamous Epith Cells 0 SEEN Urine Bacteria 0 SEEN Urine Mucus 0 SEEN Radiography Diagnostic Testing: Clinical Impression(s) from Imaging Studies Obstetrics Ultrasound 07/16/23 18:50 IMPRESSION: 1. Intrauterine demise estimated gestational age 5 weeks 6 days as described above. 2. 4 cm left ovarian par ovarian cyst. 3. Moderate amount of echogenic fluid worrisome for hemorrhagic or purulent fluid. Clinical correlation is recommended. Electronically Signed: Santosh Cast MD at 20:34 EDT , ADDENDUM: 07/16/232054 IMPRESSION: 1. Intrauterine demise estimated gestational age 5 weeks 6 days as described above. 2. 4 cm left ovarian par ovarian cyst. 3. Moderate amount of echogenic fluid worrisome for hemorrhagic or purulent fluid. Clinical correlation is recommended. N.B. : The above Results were Read Back by Santosh Cast MD to Spenser Galarza MD, and understanding confirmed on 07/16/2023 20:48:55 (ET). Electronically Signed: Santosh Cast MD at 20:34 EDT , Discharge Plan Triage Chief Complaint: Vag Bld, Preg ED Midlevel Provider: Rimma Bobby ED Provider: Spenser Hsieh Dx/Rx/DC Orders Clinical Impression: Incomplete miscarriage Instructions: ED MISCARRIAGE Incomplete Prescriptions: No Action PNV no.[id number] 180 mcg-35 mg- 25 mg-5 mg tablet,chewable PO DAILY ferrous sulfate 325 mg (65 mg iron) tablet 325 mg PO DAILY levothyroxine 150 mcg tablet 150 mcg PO DAILY sertraline 25 mg tablet 25 mg PO DAILY Qty: 30 3RF Primary Care Provider: Cain Holley Referrals: Cain Holley MD [Primary Care Provider] - Jackie Patterson DO [Med Staff - Active Staff] - 3-5 Days Activity Restrictions/Additional Instructions: Please follow-up with OB. Return for any fevers, chills, worsening bleeding, or worsening pain. Disposition Disposition: Home, Self Care Discharge Date/Time: 07/16/23 21:14
[2023-07-16 19:17] VITALS: BP 133/73; PULSE 67; RESP 18; O2SAT 99
[2023-07-16 19:18] LABS: Absolute Lymphocyte Count 2.26 X10^3/uL (0.83-4.51); Absolute Neutrophil Count 4.2 X10^3/uL (2.0-7.7); Basophil# 0.03 X10^3/uL; Basophil% 0.4 % (0-1); Eosinophil# 0.24 X10^3/uL; Eosinophils% 3.3 % (0-5); Hematocrit 37.8 % (37-47); Hemoglobin 12.2 g/dL (12.0-15.0); Lymphocyte # 2.26 X10^3/ul (0.83-4.51); Lymphocyte % 31.4 % (19-41); Mean Corp Hgb Conc 32.3 g/dL (32-36); Mean Corpuscular Hgb 29.4 pg (27.0-32.0); Mean Corpuscular Volume 91.1 fL (81-99); Mean Platelet Vol. 11.3 fl (6.2-12.0); Monocyte# 0.47 X10^3/uL; Monocyte% 6.5 % (0-10); NRBC Flagged by Analyzer 0 % (0-5); Neutrophil # 4.18 X10^3/uL (2.7-7.7); Neutrophil % 58.1 % (47-70); POSITIVE COUNT YES; Platelet Count 200 K/mm3 (150-450); RBC Distribution Width CV 13.8 % (11.6-14.6); RBC Distribution Width SD 46.5 fl (35.1-43.9); Red Blood Count 4.15 M/mm3 (4.2-5.4); White Blood Count 7.2 K/mm3 (4.4-11.0)
[2023-07-16 19:27] LABS: Differential Indicated SCAN CRITERIA MET
[2023-07-16 19:32] LABS: Bacteria 0 SEEN /hpf (None Seen); Mucous, Urine 0 SEEN /hpf (<or=2+); Red Blood Cells-Urine 0 SEEN /hpf (0-5); Squamous Epithelial Cells - UA 0 SEEN /hpf (5-10); White Blood Cells 0 SEEN /hpf (0-5)
[2023-07-16 19:45] LABS: Anisocytosis RARE; Platelet Estimate ADEQUATE (ADEQ); Red Cell Morphology N CHROM NORMAL (NORM C&C)
[2023-07-16 19:46] LABS: Macrocytosis RARE
[2023-07-16 19:51] LABS: Color, Urine Yellow (Yellow); Glucose, Dipstick Normal (Normal); Ketone-Dipstick Negative (Negative); Leukocyte Esterase-Dipstick Negative /ul (Negative); Nitrite-Dipstick Negative (Negative); Occult Blood-Urine Negative /ul (Negative); Protein-Dipstick 15 mg/dl (Negative); Urine Bilirubin Dipstick Negative (Negative); Urine Clarity Clear (Clear); Urine Urobilinogen Normal (Normal); Urine pH 6.5 (5.0 - 8.0)
[2023-07-16 21:14] VITALS: BP 143/68; PULSE 73; RESP 18; TEMP 36.7; O2SAT 100
== END 2023-07-16 21:14 | disposition home or self-care (01) ==
PROVIDERS: Physician Assistant; Emergency Provider Emergency Medicine; PCP Family Medicine; Visit Provider Emergency Medicine
DX: O03.4 Incomplete spontaneous abortion without complication (principal)
CPT/HCPCS: 76817; 81001; 85025; 99283; A4216

== ENCOUNTER → 2023-07-16 | Outpatient (CLI) | payer OTHER, SELFPAY ==
[2023-07-16 12:45] LABS: hCG Titer Quant., Serum 1914 mIU/mL (1-3)
== END | disposition home or self-care (01) ==
LOC: LAB 10:49
PROVIDERS: PCP Family Medicine; Referring Provider Registered Nurse; Visit Provider Registered Nurse
DX: O26.859 Spotting 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 pregnancy, unspecified trimester (principal); Z87.59 Personal history of other complications of pregnancy, childbirth and the puerperium; Z3A.00 Weeks of gestation of pregnancy not specified
CPT/HCPCS: 36415; 84702

== ENCOUNTER → 2024-03-31 | Outpatient (CLI) | payer OTHER, SELFPAY ==
[2024-04-02 21:07] LABS: Chlamydia By Nucleic Acid AMP Negative (Negative); Gonococcus By Nucleic Acid AMP Negative (Negative)
== END | disposition home or self-care (01) ==
LOC: LABSPEC 16:24
PROVIDERS: PCP Family Medicine; Referring Provider Obstetrics & Gynecology; Visit Provider Obstetrics & Gynecology
DX: Z34.90 Encounter for supervision of normal pregnancy, unspecified, unspecified trimester (principal)
CPT/HCPCS: 87077; 87086; 87088; 87186; 87491; 87591

== ENCOUNTER 2024-04-20 19:56 | Emergency (ER) | payer OTHER, SELFPAY ==
[2024-04-20 19:57] VITALS: BP 120/70; PULSE 72; RESP 18; TEMP 36.3; O2SAT 100; BMI 28.5
--- NOTE | 2024-04-20 20:22 | EDS_ITS ---
HPI HPI - Female History of Present Illness Chief Complaint: Vag Bld, Preg Informant: patient and family Associated Symptoms P: 3 Narrative Narrative: 34-year-old female [address] Tito Deleon, started having lower abdominal cramping and some mucousy bleeding today. Relatively mild. No presyncope. She has had some nausea for last couple weeks vomited today. No fevers or chills but she also started having urinary frequency today abnormal from what she is drinking. She had an ultrasound about 4 weeks ago showing an IUP and a heartbeat. PFSH PFSH Medical History History of oligohydramnios in prior , currently Previous gestational diabetes mellitus, antepartum Spotting in early Hx of recurrent urinary tract infection delivery delivered History of pre-term labor History of premature rupture of membranes (PPROM) History of prior with IUGR Thyroid disorder Anemia affecting IUGR (intrauterine growth restriction) in prior , Home Medications ?Medication ?Instructions ?Recorded ?Last Taken ?Type sertraline 25 mg tablet 25 mg PO DAILY anxiety #30 tabs 10/18/22 Unknown Rx PNV 178-FA 180 mcg-om3 35 mg-dha tab PO DAILY 07/13/23 Unknown History 25 mg-epa 5 mg-fish oil chew tablet levothyroxine 150 mcg tablet 150 mcg PO .COMPLEX hypothyorid 03/21/24 Unknown History ondansetron 4 mg disintegrating 4 mg PO Q8H PRN nausea and 03/31/24 Unknown Rx tablet vomiting #60 tabs Allergy/AdvReac Type Severity Reaction Status Date / Time nitrofurantoin Allergy Mild Hives Verified 04/20/24 19:57 Family History Father Diabetes Grandfather Diabetes Mother Seizures Surgical History [place] teeth extracted S/P Social History adopted: Yes (13yrs old) household members: spouse and children housing: house number of children: 3 current occupational status: employed 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[employer] current 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/hazards: No pets and animals: Yes ( taking care of litter box) pets and animals: cat(s), dog(s) and other details: rabbit history of recent travel: No sexually active: Yes Smoking Status: Never smoker alcohol intake: current alcohol intake frequency: holidays/special occasions only details: Not while substance use type: does not use well-balanced diet: daily or most days caffeine: Yes Type: coffee Number of servings: 1 and tea Number of servings: 1 eating out: rarely or never during the past year weight has: increased > 10 lbs what type of physical activity do you participate in: bicycling, weight training and additional details: yuni frequency: 3-4 times per week duration: 15-30 minutes/day fatou/anabaptism: Shinto seatbelt use: always do you feel safe at home: Yes additional social history: : Stephen - Management ROS ROS ED Constitutional Constitutional ED: Denies chills or fever(s) Cardiovascular Cardiovascular: Denies chest pain Respiratory/Chest Respiratory/Chest: Denies dyspnea Gastrointestinal Gastrointestinal: Reports abdominal pain, nausea and vomiting Genitourinary Genitourinary ED: Reports urinary frequency and other Details: dysuria once ear lier only ; Denies hematuria Musculoskeletal Musculoskeletal: Denies myalgias or neck pain Integumentary Denies rash Neurologic Neurologic: Denies headache(s), paresthesias or weakness EXAM Physical Exam Const Vital Signs: 04/20/24 19:57 Temperature 97.4 F L Temperature Source Temporal Pulse Rate 72 Respiratory Rate 18 Blood Pressure 120/70 Blood Pressure Mean 86 Pulse Ox 100 Oxygen Delivery Method Room Air Positive well nourished and well developed Constitutional Narrative: Well-appearing General Appearance ED: well developed and NAD HEENT Reports moist mucous membranes normocephalic and atraumatic Eyes PERRL and EOMs intact bilaterally Neck full ROM and supple Resp normal respiratory effort and clear to auscultation bilaterally Cardio regular rate, regular rhythm and no murmurs GI non-tender and non-distended Auscultation: normoactive bowel sounds Palpation: soft Back/Spine General Back: other FROM Extremity normal to inspection General Extremety ED: Negative for edema General Extremity: Negative for edema Neuro oriented x3, CN's II-XII intact bilaterally and no sensory deficits noted Sensorium / Orientation: awake and alert Motor Exam: strength 5/5 throughout Skin no rashes or lesions noted and no wounds MDM MDM MDM Narrative Medical decision making narrative: Patient 12 weeks by dates. I did a bedside ultrasound since the patient presents when ultrasound is not on the hospital Sunday evening, there is an IUP along with contents in the uterus, placenta plainly visible along with fetus, but there is no movement, it is measuring crown-rump length consistent with 10.0 weeks, and there is no heartbeat everywhere I checked. Given this, and the fact that the patient already had verified IUP do not think ultrasound needs to be called in from home for formal, but I will obtain a quantitative hCG, this is discussed with the Isha and Dr. Madrid on-call for the neeraj aguilar. At this point they would recommend that she follow-up closely first thing in the morning for repeat scan in the office and reevaluation. If she starts having heavy bleeding she is encouraged to return. History & Record Review Additional record(s) reviewed:: Prior labs (Blood type O+) Management Discussion w/another healthcare provider: Financial Services Director (OB) Discharge Plan Triage Chief Complaint: Vag Bld, Preg ED Provider: Aden Goodman Dx/Rx/DC Orders Clinical Impression: Missed Instructions: ED DEMISE Prescriptions: No Action PNV no.[id number] 180 mcg-35 mg- 25 mg-5 mg tablet,chewable PO DAILY ondansetron 4 mg tablet,disintegrating 4 mg PO Q8H PRN (Reason: nausea and vomiting) Qty: 60 3RF levothyroxine 150 mcg tablet 150 mcg PO .COMPLEX Rx Instructions: 150 mcg orally, 2 tabs Sunday's; 1.5 tabs - Sunday's, 1 tab Sunday - Sunday sertraline 25 mg tablet 25 mg PO DAILY Qty: 30 3RF Primary Care Provider: Cain Holley Referrals: Smiley Madrid MD [Med Staff - Active Staff] - 04/21/24 8:00 am Print Language: Bulgarian Disposition Disposition: Home, Self Care
[2024-04-20 20:36] LABS: Bacteria 0 SEEN /hpf (None Seen); Mucous, Urine 0 SEEN /hpf (<or=2+)
[2024-04-20 20:45] LABS: Color, Urine Yellow (Yellow); Glucose, Dipstick Normal (Normal); Ketone-Dipstick Negative (Negative); Leukocyte Esterase-Dipstick Negative /ul (Negative); Nitrite-Dipstick Negative (Negative); Occult Blood-Urine 10 /ul (Negative); Protein-Dipstick Negative (Negative); Specific Gravity, Urine 1.015 (1.002-1.030); Urine Bilirubin Dipstick Negative (Negative); Urine Clarity Clear (Clear); Urine Urobilinogen Normal (Normal)
[2024-04-20 20:52] LABS: Red Blood Cells-Urine 0-5 SEEN /hpf (0-5); Squamous Epithelial Cells - UA 0-5 SEEN /hpf (5-10); White Blood Cells 0-5 SEEN /hpf (0-5)
[2024-04-20 22:17] LABS: hCG Titer Quant., Serum 5679 mIU/mL (1-3)
== END 2024-04-20 21:04 | disposition home or self-care (01) ==
PROVIDERS: Emergency Provider Emergency Medicine; PCP Family Medicine; Visit Provider Emergency Medicine
DX: O02.1 Missed abortion (principal)
CPT/HCPCS: 81001; 84702; 99282

== ENCOUNTER 2024-04-21 11:29 | Day surgery (SDC) | payer OTHER, SELFPAY ==
[2024-04-21] VITALS (10 sets, daily range): BP systolic 107–126; BP diastolic 63–77; PULSE 63–69; RESP 16–18; TEMP 36.3–37.3; O2SAT 98–100; BMI 27.4
[2024-04-21] MEDS: 0.9% Normal Saline (1000mL) 1,000 ML 15 ML IV (12:23)
[2024-04-21 12:33] LABS: Absolute Lymphocyte Count 1.72 X10^3/uL (0.83-4.51); Basophil# 0.02 X10^3/uL; Basophil% 0.3 % (0-1); Eosinophils% 1.6 % (0-5); Hemoglobin 12.6 g/dL (12.0-15.0); Lymphocyte # 1.72 X10^3/ul (0.83-4.51); Lymphocyte % 27.6 % (19-41); Mean Corp Hgb Conc 33.2 g/dL (32-36); Mean Corpuscular Hgb 30.2 pg (27.0-32.0); Mean Corpuscular Volume 91.1 fL (81-99); Mean Platelet Vol. 10.8 fl (6.2-12.0); Monocyte# 0.36 X10^3/uL; Monocyte% 5.8 % (0-10); NRBC Flagged by Analyzer 0 % (0-5); Neutrophil # 4.02 X10^3/uL (2.7-7.7); Neutrophil % 64.4 % (47-70); Platelet Count 191 K/mm3 (150-450); RBC Distribution Width CV 13.2 % (11.6-14.6); RBC Distribution Width SD 44.3 fl (35.1-43.9); Red Blood Count 4.17 M/mm3 (4.2-5.4); White Blood Count 6.2 K/mm3 (4.4-11.0)
--- NOTE | 2024-04-21 12:33 | PRE.ANES_ITS ---
ASA Classification* ASA Classification ASA Classification: 2 Assessment & Plan Anesthesia* Anesthesia Assessment Anesthesia Assessment: Discussed sedation and/or anesthesia options, risks, benefits, and alternatives with patient/parents/legal guardian/POA. Questions invited. The patient/parents/legal guardian/POA seems to understand and agrees to proceed with anesthesia plan. Reviewed the physical assessment, medical history, allergy history and patient home medications list prior to surgery/procedure/anesthetic and documented any changes. Performed airway and anesthesia risk assessments. Anesthesia Type Anesthesia Type: MAC Anesthesia Focused Assessment* Temperature: 99.0 F Pulse Rate: 66 Blood Pressure: 113/77 Respiratory Rate: 18 Pulse Ox: 100 Airway Assessment Mouth opens: >3 cm Mallampati Score: II Focused Labs Anesthesia Preop lab: CBC WBC 7.2 K/mm3 (4.4-11.0) 07/16/23 19:05 RBC 4.15 M/mm3 (4.2-5.4) L 07/16/23 19:05 Hgb 12.2 g/dL (12.0-15.0) 07/16/23 19:05 Hct 37.8 % (37-47) 07/16/23 19:05 Plt Count 200 K/mm3 (150-450) 07/16/23 19:05 CHEMISTRY Potassium 3.4 mmol/L (3.5-5.1) L 02/06/21 06:50 Sodium 139 mmol/L (136-145) 02/06/21 06:50 BUN 4 mg/dL (7-18) L 02/06/21 06:50 Creatinine 0.44 mg/dL (0.55-1.02) L 02/06/21 06:50 Glucose 97 mg/dL (74-106) 02/06/21 06:50 POC Glucose 83 mg/dL (74-106) 08/23/21 06:17 TSH 0.31 uIU/mL (0.358-3.74) L 10/06/21 15:37 COAG HCG, Quant 5679 mIU/mL (1-3) H 04/20/24 20:36 Pre-Assessment Diagnosis/Proposed Procedure Planned Operative Procedure(s): D&C Anesthesia History Anesthesia History - pinsetter 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 When Was Last Pacemaker Check QUESTION #4 FULL TEXT: You/Your Family Experience fever (hyperthermia) with Anesthesia Last Oral Intake Last Oral intake: Last Oral Intake NPO since 12:00 04/21/24 12:17 Meds taken in AM with sips of Yes 04/21/24 12:17 water? Meds patient instructed to take am of surgery PONV PONV - pinsetter mechanic helper: PONV - pinsetter mechanic helper Female HX of Motion Sickness HX of N/V After Surgery Non-Smoker Duration of Surgery greater than 60 minutes Number of Risk Factors PONV Score Height & Weight Height & Weight: Anesthesia: Height & Weight Height 5 ft 4 in 04/21/24 12:17 Weight: 72.575 kg 04/21/24 12:17 Body Mass Index (BMI) 27.4 04/21/24 12:17 Respiratory Assessment Respiratory Assessment - pinsetter mechanic helper: Respiratory Tract Infection Hx - pinsetter mechanic helper Hx Respiratory Tract Infection STOP Sleep Apnea STOP Sleep Apnea - pinsetter mechanic helper: STOP Sleep Apnea - pinsetter mechanic helper Hx Hypertension No 06/30/21 11:26 Hx Sleep Apnea No 06/30/21 11:26 CPAP BIPAP Do you snore loudly (louder than talking or can be heard Do you often feel tired/ fatigued/ sleepy during daytime? Has anyone observed you stop breathing during sleep? STOP Results QUESTION #5 FULL TEXT : Do you snore loudly (louder than talking or can be heard through closed doors)? 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 Specify any problems Hx of Preganancy in last 3 Months Nurse Filling Out Transfusion & Questions: Date: Time: Patient unable to answer at this time (ie. confused, unrespo /Reproduction History /Reproductive History - pinsetter mechanic helper: /Reproductive Hx- pinsetter mechanic helper Hx Now Gestational Age (in weeks): EDC: Hx Hx Para Hx Section SAB No 04/21/24 08:09 Active Medications Active Medications: Current Medications Generic Name Dose Route Start Last Admin Trade Name Freq PRN Reason Stop Dose Admin Sodium Chloride 1,000 mls @ 15 mls/hr 04/21/24 12:05 04/21/24 12:23 IV 04/24/24 06:44 15 mls/hr .Q48H [place] Administration Protocol [facility] Medical History History of oligohydramnios in prior , currently Previous gestational diabetes mellitus, antepartum Spotting in early Hx of recurrent urinary tract infection delivery delivered History of pre-term labor History of premature rupture of membranes (PPROM) History of prior with IUGR Thyroid disorder Anemia affecting IUGR (intrauterine growth restriction) in prior , Home Medications ?Medication ?Instructions ?Recorded ?Last Taken ?Type sertraline 25 mg tablet 25 mg PO DAILY anxiety #30 tabs 10/18/22 04/21/24 Rx PNV 178-FA 180 mcg-om3 35 mg-dha tab PO DAILY 07/13/23 04/19/24 History 25 mg-epa 5 mg-fish oil chew tablet levothyroxine 150 mcg tablet 150 mcg PO .COMPLEX hypothyorid 03/21/24 04/21/24 History ondansetron 4 mg disintegrating 4 mg PO Q8H PRN nausea and 03/31/24 Unknown Rx tablet vomiting #60 tabs Allergy/AdvReac Type Severity Reaction Status Date / Time nitrofurantoin Allergy Mild Hives Verified 04/21/24 12:16 Family History Father Diabetes Grandfather Diabetes Mother Seizures Surgical History [place] teeth extracted S/P Social History adopted: Yes (11yrs old) household members: spouse and children housing: house number of children: 3 current occupational status: employed 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[employer] current 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/hazards: No pets and animals: Yes ( taking care of litter box) pets and animals: cat(s), dog(s) and other details: rabbit history of recent travel: No sexually active: Yes Smoking Status: Never smoker alcohol intake: current alcohol intake frequency: holidays/special occasions on ly details: Not while substance use type: does not use well-balanced diet: daily or most days caffeine: Yes Type: coffee Number of servings: 1 and tea Number of servings: 1 eating out: rarely or never during the past year weight has: increased > 10 lbs what type of physical activity do you participate in: bicycling, weight training and additional details: yuni frequency: 3-4 times per week duration: 15-30 minutes/day fatou/restorationist: Muslim seatbelt use: always do you feel safe at home: Yes additional social history: : Stephen - Management Review of Systems (Anesthesia) ROS Narrative System reviewed and no additional complaints, except as documented.
[2024-04-21 13:14] LABS: T4 Free Direct 1.65 ng/dL (0.76-1.46); Thyroid Stim Hormone (TSH) 0.538 uIU/mL (0.358-3.740)
--- NOTE | 2024-04-21 13:30 | POC_PTH ---
PATIENT: KARRI MARTIN LOC: [facility] [place] U#:[id number] AGE/SX: 34/F ROOM: RE04/21/[address]: Dr. Smiley Madrid MD : 1990 BED: DIS: 04/21/2024 SPEC #: [id number] RECD: 04/21/24 15:19 STATUS: YAYA MALIK #: [id number] CANDY: 04/21/24 13:[address]: Smiley Madrid DEPT: SURGICAL PATHOLOGY RECD BY: Ang Rubio ENTERED: 04/22/24 07:11 SP TYPE: PROD CONC OTHR DR: Dr. Cain Holley MD Tissues: Product of conception, NOS Procedures: Surgery Specimen Level IV HEADER OPERATION: D&C, suction, Anora testing PRE-OP DIAGNOSIS: Missed TISSUE SUBMITTED: Products of conception - ANORA TESTING MICROSCOPIC DIAGNOSIS Products of conception, dilation and curettage: [place], gestational endometrium, immature chorionic villi and tissue (products of conception) clinically missed . See comment. GUY: 04/23/2024 COMMENT Results of Anora studies will be reported as an addendum. MICROSCOPIC DESCRIPTION Slides are reviewed. GROSS DESCRIPTION Received without fixative is one container labeled with the patient's name and designated Products of conception. The specimen consists of multiple irregular fragments of pink soft tissue that in aggregate measure 6.0 x 7.0 x 1.0 cm. No tissue is identified. A portion of tissue is submitted for Anora studies. Retail Center Receptionist tissue is submitted in three cassettes. 04/22/2024 TC:5 CPT:63405 ADDENDUM ADDENDUM ADDENDUM ADDENDUM ADDENDUM ADDENDUM ADDENDUM ADDENDUM ADDENDUM ADDENDUM ADDENDUM ADDENDUM ADDENDUM ADDENDUM ADDENDUM 04/29/2024 13:31 ADDENDUM 04/29/2024 13:31 ADDENDUM 04/29/2024 13:31 ADDENDUM 04/29/2024 13:31 ADDENDUM 04/29/2024 13:31 ANORA MICROARRAY CHROMOSOME ANALYSIS WITH PARENTAL SUPPORT RESULT: Abnormal Male MICROARRAY RESULT: arr(21)x3 CLINICAL INTERPRETATION: Abnormal result. Trisomy 21 detected. Trisomy 21 is associated with clinical diagnosis of Down syndrome which is found in 1 in 600 live births. It presents with syndromic congenital abnormalities and intellectual disability. Trisomy 21 is more likely to be lethal during the period and about two-thirds of pregnancies with Trisomy 21 are miscarried. Genetic counseling is recommended to discuss the significance of this result. Referral to a local genetic counselor maybe considered. Please see complete report in e-chart or EMR
--- NOTE | 2024-04-21 14:16 | HP.PCM_ITS ---
History and Physical Date of Admission: 04/21/24 Intake Vital Signs 04/20/2419:57 04/21/2408:07 04/21/2408:09 Height 5 ft 4 in 5 ft 4 in 5 ft 4 in Weight: 163 lb 6 oz BMI 28.0 BP 117/77 Intake Visit Reasons: RESCAN Epoxy Fabrication Supervisor Required: No Is patient in pain?: No Allergies nitrofurantoin Allergy (Mild, Verified 04/21/24 08:08) Hives Medications ?Medication ?Instructions ?Recorded ?Confirmed ?Type sertraline 25 mg tablet 25 mg PO DAILY anxiety #30 tabs 10/18/22 04/21/24 Rx PNV 178-FA 180 mcg-om3 35 mg-dha tab PO DAILY 07/13/23 04/21/24 History 25 mg-epa 5 mg-fish oil chew tablet levothyroxine 150 mcg tablet 150 mcg PO .COMPLEX hypothyorid 03/21/24 04/21/24 History ondansetron 4 mg disintegrating 4 mg PO Q8H PRN nausea and 03/31/24 04/21/24 Rx tablet vomiting #60 tabs Last Menstrual Period: 02/02/24 Zika: Zika virus screening: Negative : No PFSH PFSH Medical History History of oligohydramnios in prior , currently Previous gestational diabetes mellitus, antepartum Spotting in early Hx of recurrent urinary tract infection delivery delivered History of pre-term labor History of premature rupture of membranes (PPROM) History of prior with IUGR Thyroid disorder Anemia affecting IUGR (intrauterine growth restriction) in prior , Surgical History [place] teeth extracted S/P Family History FatherDiabetesGrandfather DiabetesMother Seizures Social History adopted: Yes (13yrs old) household members: spouse and children housing: house number of children: 3 current occupational status: employed 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[employer] current 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/hazards: No pets and animals: Yes ( taking care of litter box) pets and animals: cat(s), dog(s) and other details: rabbit history of recent travel: No sexually active: Yes Smoking Status: Never smoker alcohol intake: current alcohol intake frequency: holidays/special occasions only details: Not while substance use type: does not use well-balanced diet: daily or most days caffeine: Yes Type: coffee Number of servings: 1 and tea Number of servings: 1 eating out: rarely or never during the past year weight has: increased > 10 lbs what type of physical activity do you participate in: bicycling, weight training and additional details: yuni frequency: 3-4 times per week duration: 15-30 minutes/day fatou/gnosticism: Restorationism seatbelt use: always do you feel safe at home: Yes additional social history: : Stephen - Management History 6 Elective abortions Hx Para 3 Spontaneous abortions 2 Hx # Term Pregnancies Ectopic pregnancies Hx # Pregnancies Multiple births # of living children 3 Past Pregnancies Del. Date Name GA/Weeks Outcome Route Bth Weight Gen Labor Lgth Anesth esia Del Locatn Provider FOB 04/03/17 Antonina 40 live - full term 7lbs 12oz Female 3 days epidural [facility] Dr. Whitmore [facility] 01/10/19 Raffy 36 live - 5lbs 12oz Male 0 spinal [place] [facility] ? [facility] 11/19/20 ? 5 spontaneous ? 08/22/21 Lieda 39 live - full term 7lbs 3oz Female ? spinal [facility] 07/16/23 ? 5 spontaneous ? Delivery Date: 04/03/17 Last Updated by: Kim Olsen STAT c/s nuchal cord; distress Delivery Date: 01/10/19 Last Updated by: Kim Olsen PPROM, STAT C/S; IUGR; Oligo Delivery Date: 08/22/21 Last Updated by: Karina Chávez [facility] HPI RESCAN Details: KARRI VILLAVICENCIO is a 34 year old who presents for early miscarriage, measuring 9w1d no fht and no color doppler, having bleeding since , seen in ER and no FHT seen either. no fevers some crmaping OB Visit MARGUERITE Calculator ? Estimated Delivery Date Method Current WG Current Estimate 11/08/24 LMP (Certain) 11w 2d Other Estimates 11/10/24 Ultrasound #1 11w 0d Expected Delivery Route/Plan Labor Preferences- CB/BF classes: [] labor support person: [] labor intervention preferences: [] pain management options preferred: [] cut cord/dad catch: [] : [] PP control planned: [] discussed possible routes of delivery and associated risks: [] special requests: [] Specific Issue/Plans Covid status: [] Flu vaccine: [] Tdap vaccine: [] Rhogam: [] LARC form signed: [] Problem list reviewed and updated with the most current plan of care details and appropriate orders placed. Relevant counseling for the gestational age provided. Continue routine care and follow up unless otherwise noted in visit notes/problem list details Initial Weight: Not Recorded Date -?-?-?-?-?-?-?-?-?-?-?-?- EGA Weight BP Urine Prot -?-?-?-?-?-?-?-?-?-?-?-?- Glucose FHR FuHt Pres Dilation -?-?-?-?-?-?-?-?-?-?-?-?- Effaced St Visit Note 03/31/24-?-?-?-?-?-?-?-?-?-?-?-?- 8w 2d 163 lb 102/61 -?-?-?-?-?-?- ?-?-?-?-?-?- 176 ? ? -?-?-?-?-?-?-?-?-?-?-?-?- ? JV- CRL consistent with LMP. Declines nipt. zofran for nausea sent to pharmacy. ACOG First Trimester First Trimester: Discussed ROS Const Reports as per HPI and Denies fever(s) ENT Reports system reviewed and no additional complaints, except as documented Card Reports system reviewed and no additional complaints, except as documented Resp Reports system reviewed and no additional complaints, except as documented GI Reports as per HPI Reports as per HPI and Reports abnormal vaginal bleeding Musc Reports system reviewed and no additional complaints, except as documented Skin/Breast Reports system reviewed and no additional complaints, except as documented Neuro Yes system reviewed and no additional complaints, except as documented Endo Reports system reviewed and no additional complaints, except as documented Exam Const General: healthy appearing, comfortable and no acute distress HENMT Head: normal to inspection and normocephalic Neck Neck: no lymphadenopathy noted Thyroid: thyroid normal Chest Chest palpation & inspection: normal inspection of the chest Resp Effort & Inspection: normal respiratory effort Cardio Rate: regular rate Rhythm: regular rhythm GI Inspection: normal to inspection Palpation: soft and nontender Skin General: no rashes or lesions noted Neuro General: no focal motor deficits Extrem General: normal to inspection and no pedal edema Psych Appearance: grossly normal Coding Level of Care Code Off vis,est,level 4 Diagnoses Missed O02.1 UTI in O23.40 Supervision of high-risk O09.90 11 weeks gestation of Z3A.11 Weeks of gestation: 11 weeks H/O section Z98.891 AMA (advanced maternal age) multigravida 35+ O09.529 H/O gestational diabetes in prior , currently O09.299; Z86.32 History of oligohydramnios in prior , currently O09.299 History of pre-term labor Z87.51 History of premature rupture of membranes (PPROM) Z87.59 History of prior with IUGR Z87.59 History of miscarriage Z87.59 Hypothyroidism E03.9 Anxiety F41.9 Assessment and Plan Assessment and Plan (1) Missed : Status: Acute Comment: proceed with d and c (2) UTI in : Status: Acute Comment: E coli at NOB. Rx ampicillin. rpt culture next visit (3) Supervision of high-risk : Status: Acute Comment: , MARGUERITE 11/08/24, PC: Raffy Sarkar & Gwendolyn, : Stephen (4) : Status: Acute Qualifiers: Weeks of gestation: 11 weeks Qualified Code(s): Z3A.11 - 11 weeks gestation of Comment: Discussed genetic/carrier testing - undecided (5) H/O section: Status: Acute Comment: x3, Desires rpt cse (6) AMA (advanced maternal age) multigravida 35+: Status: Acute (7) H/O gestational diabetes in prior , currently : Status: Acute (8) History of oligohydramnios in prior , currently : Status: Acute (9) History of pre-term labor: Status: Acute Comment: 2nd baby-36 weeks (10) History of premature rupture of membranes (PPROM): Status: Acute Comment: 2nd baby-32 weeks, delivered at 36 weeks (11) History of prior with IUGR : Status: Acute Comment: 2nd baby (12) History of miscarriage: Status: Acute (13) Hypothyroidism: Status: Acute Comment: needs TSH qtrimester- currently increased Levothyroxine from 137 to 150mcg. rpt in one month from 04/14 visit. order in. pt aware. (14) Anxiety: Status: Acute Comment: Zoloft adequate/stable Plan After discussing the patient's diagnosis and treatment plan options, patient wishes to proceed with surgical management. I have discussed with the patient the risks, benefits, and alternatives of the procedure which include but are not limited to risks of anesthesia, bleeding, infection, possible damage to bowel, bladder, or surrounding vasculature which could lead to additional surgery to evaluate any complications. Patient agrees to procedure and wishes to proceed. ACOG/uptodate references given for additional information regarding procedure. she has been npo since midnight UPDATE- I have seen the patient and performed any clinically relevant updates to the history and physical exam. Smiley Madrid MD
[2024-04-21] MEDS: Lidocaine 1% (20 ml mdv) 20 ML Vial (14:50)
--- NOTE | 2024-04-21 15:02 | PCM.OPRPT ---
Problems Associated Problem List Diagnoses (1) Missed : Procedures Urinary/Genital 52xxx-59xxx: [id number] Surg Trtmt missed Ab, 1TM Operative Report (Standard) Operative Information Date of Procedure: 04/22/24 Pre-Operative Diagnosis: missed ab Post-Operative Diagnosis: same Surgery/Procedure Performed: suction d and c senior product development manager: No Type of Anesthesia: IV Sedation RN Documented Start/Stop Times: Operation Date: 04/21/24 13:30 Case Time Into Pre-Op 04/21/24 11:43 Out of Pre-Op 04/21/24 14:27 Anesthesia Start 04/21/24 14:31 Into Room 04/21/24 14:31 Procedure Start 04/21/24 14:50 Procedure End 04/21/24 15:00 Anesthesia End 04/21/24 15:07 Out of Room 04/21/24 15:07 Into Recovery 04/21/24 15:11 Out of Recovery 04/21/24 16:05 Into Phase II Recovery 04/21/24 16:06 Out of Phase II 04/21/24 16:50 Procedure Start Time: 14:50 Procedure Stop Time: 15:00 Select all DRAINS/GRAFTS/IMPLANTS that apply: None Estimated Blood Loss: 100 Specimen collected: Yes Description of specimen(s) removed: POC Description of surgery: Patient was taken to the operating room and placed under MAC local anesthesia. She was prepped and draped in the normal sterile fashion the dorsal lithotomy position. Bladder was drained of clear urine and anterior lip of the cervix was grasped and the uterus sounded to 9cm. Cervix was progressively dilated to allow passage of a 9mm suction curette. Progressive passes were made removing the retained products of conception without complication. Sharp curettage confirmed complete removal of the retained products. All instruments were removed from the vagina and excellent hemostasis was noted and the patient was taken to recovery in stable condition. Surgical Findings: 8 week size uterus Complications Complications: No
--- NOTE | 2024-04-21 15:02 | PCM.DC ---
Discharge Instructions Diet Discharge Diet: No restrictions DC O2, CPAP, BIPAP needs Additional Home O2 Discharge instructions: No Dressing / Incision Discharge Activity: Return to Normal Activity, May Shower and May Take a Tub Bath (after 1 week) May resume sexual activity in: 1-2 weeks Weight Bearing Status: Weight bearing as tolerated Lifting Restrictions: none Dressing / Incision Call your doctor if you observe: Fever of 101 or Higher, Using more than 1 pad per hour, Shortness of breath and Uncontrolled pain Follow Up Care Please Follow Up With: Smiley Madrid MD When: Call [phone] to schedule appointment. Test Results: Test results from this visit will be discussed in further detail at your follow-up appointment, if applicable. Discharge Plan Admission Attending Provider: Smiley Madrid Primary Care Provider: Cain Holley Instructions Print Language: Lithuanian Discharge Orders/Prescriptions Prescriptions: No Action PNV no.[id number] 180 mcg-35 mg- 25 mg-5 mg tablet,chewable PO DAILY ondansetron 4 mg tablet,disintegrating 4 mg PO Q8H PRN (Reason: nausea and vomiting) Qty: 60 3RF levothyroxine 150 mcg tablet 150 mcg PO .COMPLEX Rx Instructions: 150 mcg orally, 2 tabs Sunday's; 1.5 tabs - Sunday's, 1 tab Sunday - Sunday sertraline 25 mg tablet 25 mg PO DAILY Qty: 30 3RF Referrals / Follow Up: Cain Holley MD [Primary Care Provider] - Disposition Disposition (needs filled in before D/C Order can be placed): Home, Self Care
--- NOTE | 2024-04-21 15:13 | PCM.POST.ANE ---
Anesthesia: Postop Eval I Current Vital Signs Temperature: 97.3 F Pulse Rate: 69 Blood Pressure: 116/76 Respiratory Rate: 16 Pulse Ox: 100 Oxygen Delivery Method: Room Air Assessment Airway patent: Yes Spontaneous unlabored respirations: Yes Mental status: Awake nausea: No Vomiting: No Anesthesia Complication: No Fluid Hydration Crystalloid volume administer (ml): 500 Total IV fluid infused: 500 Progress Note Anesthesia document: Postop Eval 1 completed: Yes
--- NOTE | 2024-04-21 17:15 | PCM.POSTANE2 ---
Anesthesia Postop Eval I Sum Postop Eval Completion status Anesthesia document: Postop Eval 1 completed: Yes Anesthesia Postop Eval I Summary Anesthesia Postop Eval I Summary: Anesthesia Postop Eval I: Assessment Summary Airway patent Yes 04/21/24 15:19 Spontaneous unlabored Yes 04/21/24 15:19 respirations Mental status Awake 04/21/24 15:19 nausea No 04/21/24 15:19 Vomiting No 04/21/24 15:19 Anesthesia Postop Eval I: Fluid Summary Crystalloid volume administer 500 04/21/24 15:19 (ml) Colloids volume administered ( ml) Blood Product volume administered (ml) Total IV fluid infused 500 04/21/24 15:19 Anesthesia Postop Eval I: Summary Notes Anesthesia Complication No 04/21/24 15:19 Anesthesia Complication Comment: Post-operative progress note Anesthesia: Postop Eval II Evaluation Mental status: Awake Pain Level: 0 nausea: No Vomiting: No
[2024-04-22 07:14] LABS: Pathology Specimen OB SEE PATHOLOGY REPORT
[2024-04-23 18:07] LABS: Anti-Cardiolipin Ab, IgG, Qn < 9 GPL U/mL (0-14); Anti-Cardiolipin Ab, IgM, Qn 13 MPL U/mL (0-12); Beta-2-Glycoprotein I IgA <9 (0-25); Beta-2-Glycoprotein I IgG <9 (0-20); Beta-2-Glycoprotein I IgM <9 (0-32); Dilute Prothrombin Time (dPT) 38.2 sec (0.0-47.6); Dilute Russell Viper Venom 29.8 sec (0.0-47.0); Interpretation Comment: (.); PTT-LA 34.6 sec (0.0-43.5); dPT Confirm Ratio 1.03 Ratio (0.00-1.34)
== END 2024-04-21 16:50 | disposition home or self-care (01) ==
LOC: SDC 11:32 → AC 11:44
PROVIDERS: PCP Family Medicine; Referring Provider Obstetrics & Gynecology; Visit Provider Obstetrics & Gynecology
PROC: (CPT 59820; principal; 2024-04-21 13:15)
DX: O02.1 Missed abortion (principal); O34.219 Maternal care for unspecified type scar from previous cesarean delivery; E03.9 Hypothyroidism, unspecified; O99.341 Other mental disorders 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 pregnancy, first trimester; Z3A.11 11 weeks gestation of pregnancy; O99.281 Endocrine, nutritional and metabolic diseases 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 pregnancy, first trimester; O23.41 Unspecified infection of urinary tract in pregnancy, first trimester; B96.20 Unspecified Escherichia coli [E. coli] as the cause of diseases classified elsewhere; F41.9 Anxiety disorder, unspecified; Z87.51 Personal history of pre-term labor; Z87.59 Personal history of other complications of pregnancy, childbirth and the puerperium; Z86.32 Personal history of gestational diabetes; N96 Recurrent pregnancy loss
CPT/HCPCS: 59820; 01965; 84439; 84443; 85025; 86146; 86147; 86850; 86900; 86901; 88305; J2405

== ENCOUNTER → 2024-07-16 | Outpatient (CLI) | payer OTHER, SELFPAY ==
[2024-07-18 19:08] LABS: Anti-Cardiolipin Ab, IgG, Qn < 9 GPL U/mL (0-14); Anti-Cardiolipin Ab, IgM, Qn 12 MPL U/mL (0-12); Beta-2-Glycoprotein I IgA <9 (0-25); Beta-2-Glycoprotein I IgG <9 (0-20); Beta-2-Glycoprotein I IgM <9 (0-32); Dilute Prothrombin Time (dPT) 36.5 sec (0.0-47.6); Dilute Russell Viper Venom 33.7 sec (0.0-47.0); Interpretation Comment: (.); Thrombin Time 17.3 sec (0.0-23.0); dPT Confirm Ratio 1.14 Ratio (0.00-1.34)
== END | disposition home or self-care (01) ==
PROVIDERS: PCP Family Medicine; Referring Provider Obstetrics & Gynecology; Visit Provider Obstetrics & Gynecology
DX: N96 Recurrent pregnancy loss (principal)
CPT/HCPCS: 36415; 86146; 86147

== ENCOUNTER → 2024-10-13 | Outpatient (CLI) | payer OTHER, SELFPAY ==
[2024-10-15 07:08] LABS: Chlamydia By Nucleic Acid AMP Negative (Negative); Gonococcus By Nucleic Acid AMP Negative (Negative)
== END | disposition home or self-care (01) ==
LOC: LABSPEC 11:49
PROVIDERS: PCP Family Medicine; Referring Provider Advanced Practice Midwife; Visit Provider Advanced Practice Midwife
DX: R76.0 Raised antibody titer (principal); O09.90 Supervision of high risk pregnancy, unspecified, unspecified trimester; Z3A.00 Weeks of gestation of pregnancy not specified
CPT/HCPCS: 87491; 87591

== ENCOUNTER → 2024-10-27 | Outpatient (CLI) | payer OTHER, SELFPAY ==
[2024-10-27 12:07] LABS: Absolute Lymphocyte Count 1.91 X10^3/uL (0.83-4.51); Absolute Neutrophil Count 5.2 X10^3/uL (2.0-7.7); Basophil# 0.03 X10^3/uL; Basophil% 0.4 % (0-1); Eosinophil# 0.16 X10^3/uL; Eosinophils% 2.1 % (0-5); Hematocrit 36.3 % (37-47); Hemoglobin 12.1 g/dL (12.0-15.0); Lymphocyte # 1.91 X10^3/ul (0.83-4.51); Lymphocyte % 24.5 % (19-41); Mean Corp Hgb Conc 33.3 g/dL (32-36); Mean Corpuscular Hgb 30.2 pg (27.0-32.0); Mean Corpuscular Volume 90.5 fL (81-99); Mean Platelet Vol. 10.5 fl (6.2-12.0); Monocyte# 0.49 X10^3/uL; Monocyte% 6.3 % (0-10); NRBC Flagged by Analyzer 0 % (0-5); Neutrophil # 5.18 X10^3/uL (2.7-7.7); Neutrophil % 66.4 % (47-70); Platelet Count 195 K/mm3 (150-450); RBC Distribution Width CV 13.2 % (11.6-14.6); RBC Distribution Width SD 43.4 fl (35.1-43.9); Red Blood Count 4.01 M/mm3 (4.2-5.4); White Blood Count 7.8 K/mm3 (4.4-11.0)
[2024-10-27 13:24] LABS: HIV Nonreactive (Nonreactive); Hepatitis B Surface Antigen Nonreactive (Nonreactive); Hepatitis C Antibody Nonreactive (Nonreactive); Rubella IgG REAC (Nonreactive); Syphilis Antibodies Nonreactive (Nonreactive)
== END | disposition home or self-care (01) ==
LOC: LABSPEC 11:40 → BWCLAB 11:41
PROVIDERS: Advanced Practice Midwife; PCP Family Medicine; Referring Provider Obstetrics & Gynecology; Visit Provider Obstetrics & Gynecology
DX: O09.521 Supervision of elderly multigravida, first trimester (principal); Z3A.00 Weeks of gestation of pregnancy not specified; O99.891 Other specified diseases and conditions 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 pregnancy; R76.0 Raised antibody titer; R35.0 Frequency of micturition; O99.280 Endocrine, nutritional and metabolic diseases 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 pregnancy, unspecified trimester; E03.9 Hypothyroidism, unspecified
CPT/HCPCS: 36415; 84439; 84443; 85025; 86703; 86762; 86780; 86803; 86850; 86900; 86901; 87077; 87086; 87088; 87186; 87340

== ENCOUNTER → 2024-12-18 | Outpatient (CLI) | payer OTHER, SELFPAY | END | disposition home or self-care (01) | PROVIDERS: PCP Family Medicine; Referring Provider Obstetrics & Gynecology; Visit Provider Obstetrics & Gynecology | DX: E03.9 Hypothyroidism, unspecified (principal) | CPT/HCPCS: 36415; 84439; 84443 ==

== ENCOUNTER → 2025-01-06 | Outpatient (CLI) | payer OTHER, SELFPAY | END | disposition home or self-care (01) | LOC: LABSPEC 16:32 | PROVIDERS: PCP Family Medicine; Referring Provider Obstetrics & Gynecology; Visit Provider Obstetrics & Gynecology | DX: R35.0 Frequency of micturition (principal); R32 Unspecified urinary incontinence | CPT/HCPCS: 87077; 87086; 87088; 87186 ==

== ENCOUNTER → 2025-02-09 | Outpatient (CLI) | payer OTHER, SELFPAY ==
[2025-02-09 12:28] LABS: Hematocrit 31.2 % (37-47); Hemoglobin 10.3 g/dL (12.0-15.0); Immature Granulocytes Count 0.040 X10^3/uL (0.0-0.0); Mean Corp Hgb Conc 33.0 g/dL (32-36); Mean Corpuscular Volume 94.0 fL (81-99); Mean Platelet Vol. 10.3 fl (6.2-12.0); NRBC Flagged by Analyzer 0 % (0-5); Platelet Count 212 K/mm3 (150-450); RBC Distribution Width CV 12.7 % (11.6-14.6); RBC Distribution Width SD 43.5 fl (35.1-43.9); Red Blood Count 3.32 M/mm3 (4.2-5.4); White Blood Count 8.0 K/mm3 (4.4-11.0)
[2025-02-09 13:00] LABS: HIV Nonreactive (Nonreactive); Syphilis Antibodies Nonreactive (Nonreactive)
[2025-02-09 13:11] LABS: Glucose Challenge Gest 1H 50g 109 mg/dL (70-140)
== END | disposition home or self-care (01) ==
PROVIDERS: PCP Family Medicine; Visit Provider Obstetrics & Gynecology
DX: O09.90 Supervision of high risk pregnancy, unspecified, unspecified trimester (principal); Z13.1 Encounter for screening for diabetes mellitus; Z3A.00 Weeks of gestation of pregnancy not specified
CPT/HCPCS: 36415; 82950; 85025; 86703; 86780

== ENCOUNTER 2025-04-16 12:51 | Inpatient (IN) | payer OTHER, SELFPAY ==
[2025-04-16] VITALS (16 sets, daily range): BP systolic 101–124; BP diastolic 53–73; PULSE 64–81; RESP 14–20; TEMP 36.4–37.1; O2SAT 94–100; BMI 30.7
[2025-04-16 12:47] LABS: Color, Urine Yellow (Yellow); Glucose, Dipstick Normal (Normal); Ketone-Dipstick Negative (Negative); Leukocyte Esterase-Dipstick Negative /ul (Negative); Nitrite-Dipstick Negative (Negative); Occult Blood-Urine Negative /ul (Negative); Protein-Dipstick Negative (Negative); Specific Gravity, Urine 1.005 (1.002-1.030); Urine Bilirubin Dipstick Negative (Negative)
[2025-04-16 12:50] LABS: ROM Internal Control Test YES-OK TO RESULT pt. (Internal QC)
[2025-04-16 12:51] LABS: ROM Patient Test POSITIVE (Negative); Record Kit Lot#, ROM+ K3607
[2025-04-16] MEDS: Betamethasone/Betamethasone 30 MG/5 ML Vial 12 MG IM (13:40)
[2025-04-16] MEDS: Lactated Ringers 1,000 ML 999 ML IV ×2 (14:40→21:53)
[2025-04-16 15:00] LABS: Hematocrit 34.6 % (37-47); Hemoglobin 11.2 g/dL (12.0-15.0); Immature Granulocytes Count 0.030 X10^3/uL (0.0-0.0); Mean Corp Hgb Conc 32.4 g/dL (32-36); Mean Corpuscular Volume 91.3 fL (81-99); Mean Platelet Vol. 10.5 fl (6.2-12.0); NRBC Flagged by Analyzer 0 % (0-5); Platelet Count 176 K/mm3 (150-450); RBC Distribution Width CV 13.8 % (11.6-14.6); RBC Distribution Width SD 46.2 fl (35.1-43.9); Red Blood Count 3.79 M/mm3 (4.2-5.4); White Blood Count 10.0 K/mm3 (4.4-11.0)
[2025-04-16 15:34] LABS: Syphilis Antibodies Nonreactive (Nonreactive)
[2025-04-16] MEDS: Lactated Ringers 1,000 ML 150 ML IV (15:40)
[2025-04-16] MEDS: Cefazolin 1 GM/5 ML Vial 2 GM IV (17:40)
[2025-04-16] MEDS: morphine PF (epidural) 5 MG/10 ML Vial INTRATH (17:43)
--- NOTE | 2025-04-16 17:53 | FALS_PTH ---
PATIENT: KARRI MARTIN LOC: WP U#:[id number] AGE/SX: 35/F ROOM: WP002 RE04/16/[address]: Dr. Smiley Madrid MD : 1990 BED: 1 DIS: 04/18/2025 SPEC #: [id number] RECD: 04/16/25 20:29 STATUS: YAYA HELENA #: [id number] CANDY: 04/16/25 17:[address]: Smiley Madrid DEPT: SURGICAL PATHOLOGY RECD BY: Garry Boswell ENTERED: 04/17/25 10:57 SP TYPE: FALL TUBES OTHR DR: Dr. Cain Holley MD Tissues: A - Fallopian tube Procedures: Surgery Specimen Level II Comments: @ Specimen number changed from [id number] to [id number] @ on 04/17/25 at 1341 by MADAI. HEADER OPERATION: Tubal ligation PRE-OP DIAGNOSIS: C/S with BTO TISSUE SUBMITTED: A- Bilateral fallopian tubes MICROSCOPIC DIAGNOSIS A. Bilateral fallopian tubes, resection: - No specific pathologic change with complete luminal cross-section confirmed, right (A1). - Benign paratubal cysts with complete luminal cross-section confirmed, left (A2, A3, A4). MICROSCOPIC DESCRIPTION Slides are reviewed. GROSS DESCRIPTION A. Received in formalin labeled with the patient's name and date of . Designated as cyst left are 2 pink-purple to red fimbriated fallopian tubes each with multiple, paratubal cyst, 0.1 cm to 4.9 x 3.8 x 2.5 cm; the fallopian tube with the largest paratubal cyst is presumed to be the left; the tubes measure 7.1 x 0.7 cm (left) and 6.0 x 0.7 cm (right). Game Designer/Creative Director sections are submitted as follows: A1: Right fallopian tubeA2-A4: Left fallopian tube, including largest paratubal cyst [place] 04/17/2025 CPT:08500n5
[2025-04-16] MEDS: Lactated Ringers 500 ML IV (18:21)
--- NOTE | 2025-04-16 18:39 | HP.PCM.OB_ITS ---
HPI - General General Date of Admission: 04/16/25 HPI Narrative KARRI VILLAVICENCIO, is a 35 F who presents with P PROM clear fluid this morning G7, P3 at 35 weeks 5 days Maternal Data Information MARGUERITE Calculator Estimated Delivery Date Method Current WG Current Estimate 05/16/25 LMP (Certain) 35w 6d Other Estimates 05/15/25 Ultrasound #1 36w 0d PFSH PFSH Medical History (Updated 04/17/25 @ 08:[address] Smiley Madrid MD) delivery delivered AMA (advanced maternal age) multigravida 35+ H/O gestational diabetes in prior , currently Supervision of high-risk History of oligohydramnios in prior , currently Previous gestational diabetes mellitus, antepartum Spotting in early Hx of recurrent urinary tract infection History of pre-term labor History of premature rupture of membranes (PPROM) History of prior with IUGR Thyroid disorder Anemia affecting IUGR (intrauterine growth restriction) in prior , Home Medications ?Medication ?Instructions ?Recorded ?Last Taken ?Type sertraline 25 mg tablet 25 mg PO DAILY anxiety #30 t abs 10/18/22 04/16/25 06:00 Rx 25 mg levothyroxine 150 mcg tablet 150 mcg PO .COMPLEX hypot hyorid 10/03/24 04/16/25 06:00 History 150 mcg multivit-min no.71-iron fum 28 1 cap PO DAILY pregnanc y 10/03/24 04/15/25 21:00 History mg-folate no.1 1 mg-dha 300 mg 1 cap capsule (PNV-[place]) cephalexin 500 mg capsule 500 mg PO QDAY #30 caps 12/2904/16/25 07:00 Rx ferrous sulfate 325 mg (65 mg 325 mg PO DAILY 04/16/25 04/14/25 12:00 History iron) tablet (FeroSul) 325 mg naproxen 500 mg tablet 500 mg PO BID PRN PRN Pain # 30 tabs 04/17/25 Unknown Rx oxycodone-acetaminophen 5 mg-325 1 tab PO Q4H PRN pain 7 days #20 04/17/25 Unkn own Rx mg tablet (Percocet) tabs Allergy/AdvReac Type Severity Reaction Status Date / Time nitrofurantoin Allergy Mild Hives Verified 04/16/25 12:20 Family History Father Diabetes Grandfather Diabetes Paternal & Maternal Mother Seizures Surgical History (Updated 04/17/25 @ 08:[address] 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[employer] current 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/hazards: No pets and animals: Yes ( taking care of litter box) pets and animals: cat(s) and dog(s) history of recent travel: No sexually active: Yes Smoking Status: Never smoker alcohol intake: current alcohol intake frequency: holidays/special occasions only details: Not while substance use type: does not use well-balanced diet: daily or most days caffeine: No eating out: rarely or never during the past year weight has: remained stable what type of physical activity do you participate in: walking and weight training frequency: 3-4 times per week duration: 15-30 minutes/day fatou/anabaptist: Alevism seatbelt use: always do you feel safe at home: Yes additional social history: : Stephen - Management History 7 Elective abortions Hx Para 3 Spontaneous abortions 3 Hx # Term Pregnancies Ectopic pregnancies Hx # Pregnancies Multiple births # of living children 3 Past Pregnancies Del. Date Name GA/Weeks Outcome Route Bth Weight Infant Gen Labor Lgth Anesthesia Del Locatn Provider FOB 04/03/17 Antonina 40 live - full term 7lbs 12oz Fem sahil 3 days epidural [facility] Dr. Whitmore Stephen 01/10/19 Raffy 36 live - 5lbs 12oz Male 0 spinal Jose Carlos Chen Stephen 11/19/20 5 spontaneous 08/22/21 Lieda 39 live - full term 7lbs 3oz Female spinal [facility] 07/16/23 5 spontaneous 04/21/24 11 spontaneous SM Delivery Date: 04/03/17 Last Updated by: Kim Olsen STAT c/s nuchal cord; distress Delivery Date: 01/10/19 Last Updated by: Kim Olsen PPROM, STAT C/S; IUGR; Oligo Delivery Date: 08/22/21 Last Updated by: Karina Chávez RLTCS Delivery Date: 04/21/24 Last Updated by: Alice Padilla RN D&C, measuring 9w1d Visit Details Expected Delivery Route/Plan plans repeat c/s Plans Covid status: [] Flu vaccine: declined Tdap vaccine:given Rhogam: na LARC form signed: dec movement and labor precautions reviewed. Problem list reviewed and updated with the most current plan of care details and appropriate orders placed. Relevant counseling for the gestational age provided. Continue routine care and follow up unless otherwise noted in visit not es/problem list details OB Flowsheet Initial Weight: 163 lb Date -?-?-?-?-?-?-?-?-?-?-?-?- EGA Weight BP Urine Prot -?-?-?-?-?-?-?-?-?-?-?-?- Glucose FHR FuHt Pres Dilation -?-?-?-?-?-?-?-?-?-?-?-?- Effaced St Visit Note 10/13/24 -?-?-?-?-?-?-?-?-?-?-?-?- 9w 2d 163 lb 2 oz (+2 oz) 122/74 -?--?-?-?-?-?-?-?-?-?-?-?- 175 -?-?-?-?-?-?-?-?-?-?-?-?- KW- CRL cons wit h dates. Accepts NIPT-currently on ATB for UTI. will get culture in 4 weeks. would like to RTO in 2 weeks for FHT due to hx SAB. 10/27/24 -?-?-?-?-?-?-?-?-?-?-?-?- 11w 2d 161 lb 6 oz (-1 lb 10 oz) 116/62 Negative -?-?-?-?-?-?-?-?-?-?-?-?- Negative 168 -?-?-?-?-?-?-?-?-?-?-?-?- SM- no vb crmapi ng 11/18/24 -?-?-?-?-?-?-?-?-?-?-?-?- 14w 3d 159 lb (-4 lb) 116/77 Negative -?-?-?-?-?-?-?-?-?-?-?-?- Negative 148 -?-?-?-?-?-?-?-?-?-?-?-?- JV- CRL measurin g 13 weeks 6 days. no complaints today. anaotmy scan ordered 12/01/24 -?-?-?-?-?-?-?-?-?-?-?-?- 16w 2d 161 lb 8 oz (-1 lb 8 oz) 115/72 Negative -?-?-?-?-?-?-?-?-?-?-?-?- Negative 145 -?-?-?-?-?-?-?-?-?-?-?-?- KW- no vb/crampi ng. +fm. anatomy US scheduled. declines AFP 12/18/24 -?-?-?-?-?-?-?-?-?-?-?-?- 18w 5d 162 lb 9 oz (-7 oz) 121/70 -?-?-?-?-?-?-?-?-?-?-?-?- 145 -?-?-?-?-?-?-?-?-?-?-?-?- SM co right hand numbness and tingling, carpal tunnel like symptoms 01/06/25 -?-?-?-?-?-?-?-?-?-?-?-?- 21w 3d 165 lb 3 oz (+2 lb 3 oz) 122/73 Negative -?-?-?-?-?-?-?-?-?-?-?-?- Negative 140 -?-?-?-?-?-?-?-?-?-?-?-?- SM- co urinary f requency pressure, and incontinence. no vb 01/12/25 -?-?-?-?-?-?-?-?-?-?-?-?- 22w 2d 166 lb 2 oz (+3 lb 2 oz) 107/71 Negative -?-?-?-?-?-?-?-?-?-?-?-?- Negative 140 22 -?-?-?-?-?-?-?-?-?-?-?-?- SM- keflex order ed no vb lof goo dfm 02/09/25 -?-?-?-?-?-?-?-?-?-?-?-?- 26w 2d 169 lb (+6 lb) 111/71 Negative -?-?-?-?-?-?-?-?-?-?-?-?- Negative 155 26 -?-?-?-?-?-?-?-?-?-?-?-?- KW- no vb/lof/ct x. normal echo. glucose today. declines LARC. would like BTO with C/S 02/23/25 -?-?-?-?-?-?-?-?-?-?-?-?- 28w 2d 170 lb 2 oz (+7 lb 2 oz) 106/71 Negative -?-?-?-?-?-?-?-?-?-?-?-?- Negative 140 29 -?-?-?-?-?-?-?-?-?-?-?-?- KW- no vb/lof/ct x. good fm. is on ATB for resp infection. Has c/s scheduled. tdap next visit. LARC done. 03/09/25 -?-?-?-?-?-?-?-?-?-?-?-?- 30w 2d 174 lb 1 oz (+11 lb 1 oz) 107/61 Negative -?-?-?-?-?-?-?-?-?-?-?-?- Negative 155 30 -?-?-?-?-?-?-?-?-?-?-?-?- KW- no vb/lof/ct x. good fm. is feeling better but not yet 100% 03/17/25 -?-?-?-?-?-?-?-?-?-?-?-?- 31w 3d 176 lb 4 oz (+13 lb 4 oz) 104/53 Negative -?-?-?-?-?-?-?-?-?-?-?-?- Negative 150 -?-?-?-?-?-?-?-?-?-?-?-?- KW- WORK in for decreased movement. NST reactive and feeling FM now 03/25/25 -?-?-?-?-?-?-?-?-?-?-?-?- 32w 4d 176 lb 2 oz (+13 lb 2 oz) 104/63 Negative -?-?-?-?-?-?-?-?-?-?-?-?- Negative 145 32 -?-?-?-?-?-?-?-?-?-?-?-?- SM- no vb lof go od fm no regular ctx 04/08/25 -?-?-?-?-?-?-?-?-?-?-?-?- 34w 4d 178 lb 6 oz (+15 lb 6 oz) 122/79 Negative -?-?-?-?-?-?-?-?-?-?-?-?- Negative 135 35.5 -?-?-?-?-?-?-?-?-?-?-?-?- JV- no lof, vagi nal bleeding, or dec fm. 36 week growth scan and tsh ordered. NST FHR Rate Baby A Baseline: 130 Variability:: Moderate Accelerations:: 15 x 15 Decelerations:: None NST Reactive:: Yes FHR Category:: Category I Uterine Activity:: irregular ROS Constitutional Constitutional: Reports systems reviewed and no addt'l complaints, except as documented Eyes Eyes: Denies change in vision ENT HEENT: Reports systems reviewed and no addt'l complaints, except as documented; Denies headache(s) Cardiovascular Cardiovascular: Reports systems reviewed and no addt'l complaints, except as documented; Denies chest pain or dyspnea Respiratory/Chest Respiratory/Chest: Reports systems reviewed and no addt'l complaints, except as documented Gastrointestinal Gastrointestinal: Reports systems reviewed and no addt'l complaints, except as documented; Denies abdominal pain Genitourinary Genitourinary: Reports systems reviewed and no addt'l complaints, except as documented, contractions Details: present (irregular) and movement Details: present; Denies dysuria or genital lesions Musculoskeletal Musculoskeletal: Reports systems reviewed and no addt'l complaints, except as documented Neurologic Neurologic: Reports systems reviewed and no addt'l complaints, except as documented Endocrine Endocrinology: Reports systems reviewed and no addt'l complaints, except as documented Vital Signs Vital Signs Vital Signs: 04/16/25 12:17 04/16/25 12:17 04/16/25 13:41 Temperature Temperature Source Pulse Rate 81 Respiratory Rate Blood Pressure 122/72 H 124/73 H Blood Pressure Mean BP Systolic 122 124 BP Diastolic 72 73 Blood Pressure Source Blood Pressure Position Blood Pressure Location Baseline BP Pulse Ox Oxygen Delivery Method 04/16/25 13:41 04/16/25 15:05 04/16/25 15:05 Temperature Temperature Source Pulse Rate 73 80 Respiratory Rate Blood Pressure 124/58 H Blood Pressure Mean BP Systolic 124 BP Diastolic 58 Blood Pressure Source Blood Pressure Position Blood Pressure Location Baseline BP Pulse Ox Oxygen Delivery Method 04/16/25 15:13 Temperature 98.7 F Temperature Source Temporal Pulse Rate 80 Respiratory Rate 16 Blood Pressure 124/58 H Blood Pressure Mean 80 BP Systolic BP Diastolic Blood Pressure Source Monitor Blood Pressure Position Semi-Fowlers Blood Pressure Location Left Arm Baseline BP 124/58 Pulse Ox 100 Oxygen Delivery Method Room Air Weight Weight: 179 lb 0.246 oz Body Mass Index (BMI) 30.7 PRE- weight 155 lb PRE- Body Mass Index 26.4 (BMI) Physical Exam Const alert, oriented x3, no apparent distress and healthy appearing HEENT normocephalic and moist oral mucous membranes Head and Scalp: atraumatic Neck full ROM, no lymphadenopathy, supple and thyroid normal General: trachea midline Lymph Lymphatic: no lymphadenopathy noted Chest inspection of chest normal Resp normal respiratory effort Cardio regular rate GI soft to palpation and non-tender GI Narrative: gravid Inspection: gravid external exam normal Manual OB Exam: estimated gestational size appropriate, presentation cephalic, dilated, effaced and station Extremity normal to inspection General Extremity: Negative for edema Skin no rashes or lesions noted Neuro no focal motor deficits and deep tendon reflexes 2+ bilaterally Motor Exam: strength 5/5 throughout and clonus absent Psych mental status grossly normal Labs Labs Labs: Blood Type O POSITIVE Antibody Screen NEGATIVE Hct, (37-47) 30.6 % L Hgb, (12.0-15.0) 10.1 g/dL L Pap Smear Negative Obstetrics Ultrasound Syphilis Total Ab, (Nonreactive) Nonreactive Rubella IgG Antibody, (Nonreactive) REAC Hep Bs Antigen, (Nonreactive) Nonreactive Hepatitis C Antibody, (Nonreactive) Nonreactive Chlamydia DNA (LYLY), (Negative) Negative N.gonorrhoeae DNA (LYLY), (Negative) Negative HIV 1&2 Antibody, (Nonreactive) Nonreactive Glucose 1 Hr 50 gm, (70-140) 109 mg/dL Gest Glucose Tolerance MG/DL Miscellaneous Test, (.) COMMENT Assessment & Plan (1) premature rupture of membranes (PPROM) with unknown onset of labor: (2) Mild anemia: COMMENT: OTC iron (3) Recurrent urinary tract infection affecting in second trimester: COMMENT: keflex prophylaxis (4) Family history of congenital anomaly of cardiovascular system: COMMENT: Stephen's brother born with transposition of arteries, echo 22-26wk ordered (5) Hx of section: COMMENT: x3, plans c section -05/11/25 SM. (6) Advanced maternal age (AMA) in : (7) Supervision of high-risk : COMMENT: PRR , MARGUERITE 05/16/25, girl Avara PC Raffy Sarkar Gwendolyn, Stephen (8) : QUALIFIERS: Weeks of gestation: 34 weeks Qualified Code(s): Z3A.34 - 34 weeks gestation of COMMENT: NIPT low risk carrier and afp declined. female. nl anatomy (9) History of miscarriage: COMMENT: x3 (10) Hypothyroidism: COMMENT: needs TSH qtrimester- currently increased Levothyroxine from 137 to 150mcg. rpt in one month from 04/14 visit. order in. pt aware. (11) Anxiety: COMMENT: Zoloft adequate/stable PLAN: Plan Admit for repeat low-transverse and bilateral salpingectomy dose of Celestone given antibiotics given
--- NOTE | 2025-04-16 18:39 | EX.PCM.OBRPT ---
Assessment & Plan (1) Anxiety: COMMENT: Zoloft adequate/stable (2) Hypothyroidism: COMMENT: needs TSH qtrimester- currently increased Levothyroxine from 137 to 150mcg. rpt in one month from 04/14 visit. order in. pt aware. (3) History of miscarriage: COMMENT: x3 (4) : QUALIFIERS: Weeks of gestation: 34 weeks Qualified Code(s): Z3A.34 - 34 weeks gestation of COMMENT: NIPT low risk carrier and afp declined. female. nl anatomy (5) Supervision of high-risk : COMMENT: PRR , MARGUERITE 05/16/25, girl Avara PC Antonina, Raffy, Jamilhieu, Stephen (6) Advanced maternal age (AMA) in : (7) Hx of section: COMMENT: x3, plans c section -05/11/25 . (8) Family history of congenital anomaly of cardiovascular system: COMMENT: Stephen's brother born with transposition of arteries, echo 22-26wk ordered (9) Recurrent urinary tract infection affecting in second trimester: COMMENT: keflex prophylaxis (10) Mild anemia: COMMENT: OTC iron (11) premature rupture of membranes (PPROM) with unknown onset of labor: (12) delivery delivered: COMMENT: RLTCS 35 PPROM girl Avara (13) Status post bilateral salpingectomy: Maternal Data Information MARGUERITE Calculator Estimated Delivery Date Method Current WG Current Estimate 05/16/25 LMP (Certain) 35w 6d Other Estimates 05/15/25 Ultrasound #1 36w 0d Operative Report (OB) Procedure Details Date of Procedure: 04/17/25 Procedure Start Time: 18:31 Pre-Operative Diagnosis: Other Other Pre-Operative diagnosis: see a/p comments Post-Operative Diagnosis: Same as Pre-operative diagnosis Classification: Scheduled Type of Anesthesia: Spinal Special Medications: none Antibiotic Given: Ancef 2 grams IV x1 Drain: Pena to straight drain Estimated Blood Loss: 600 Fluids Replaced: crystalloid Findings Description of surgery: Spinal anesthesia was placed without difficulty. Pena catheter was placed. The patient was placed in the dorsal supine position with leftward tilt. Patient was prepped and draped in the normal sterile fashion. Pfannenstiel skin incision was made with the scalpel and carried through to the underlying layer of fascia with the scalpel. Fascia was nicked in the midline and the incision extended laterally. The rectus bellies were dissected off superiorly and inferiorly with out complication both sharply and bluntly. The peritoneum was entered digitally. The incision was stretched and a low transverse uterine incision was made with the scalpel. The 's head was delivered atraumatically followed by the anterior and posterior shoulders without complication the rest of the infant delivered. The cord was clamped and cut and the was handed off to awaiting nurse. The placenta was delivered spontaneously immediately following and was noted to be intact and have a three-vessel cord. The uterus was exteriorized cleared of all clots and debris, and the incision was closed in a single layer closure using #1 Monocryl. Patient had desired sterilization and was counseled preoperatively regarding irreversibility and permanency. Therefore bilateral fallopian tubes were elevated and transected across using a LigaSure device starting proximally to distally without complication the entire fallopian tubes were removed. left tube had a large peritubal cyst noted that was removed. The uterus was returned to the maternal abdomen and gutters were cleared of all clots and debris. The peritoneum was closed with 3-0 Monocryl in a running fashion. Gloves were changed prior to fascial closure. Fascia was closed with 0 PDS in a running fashion. Subcutaneous tissue was copiously irrigated and the skin was closed with 3-0 Monocryl in a subcuticular fashion. Mepilex dressing was applied without complication. Patient was taken to recovery in stable condition. Surgical findings: nl uterus right tube ovaries left tubal cyst Presentation: Vertex Amniotic Membrane Rupture Type: Artificial Amniotic Fluid Description: Clear Specimen collected: Yes Description of specimen(s) removed: placenta and baby Cord Vessel Description: 3 Vessels Delayed Cord Clamping: Yes Director Of Physiotherapy Services supervisor shed workers: Yes Ladies' Hat Trimmer: Kisha Sutton Tasks completed by equity sales assistant: Opening & closing, Retracting and Other (assisting in delivery of the ) Additional nurse assistant?: No Complications Complications: No Admit VTE Documentation VTE Present on Admission: No VTE Mechan Device Prophylaxis: SCD's Multi Select Codes Urinary/Genital Urinary/Genital CPT Codes: 74594 C/[place] [address] Delivery [facility]
[2025-04-16] MEDS: Oxytocin 15 Units/NS 250ml 15 UNITS/250 ML IV.SOLN 83 UNITS IV (19:01)
[2025-04-16] MEDS: 0.9% Saline Lock 10 ML Syringe IV (19:09)
[2025-04-16] MEDS: Ketorolac 30 MG/ML Syringe IV (19:09)
[2025-04-16] MEDS: Lactated Ringers 1,000 ML 100 ML IV (21:52)
[2025-04-16 22:36] LABS: Pathology Specimen OB SEE PATHOLOGY REPORT
[2025-04-17] VITALS (7 sets, daily range): BP systolic 97–117; BP diastolic 51–102; PULSE 59–71; RESP 16–18; TEMP 36.2–36.6; O2SAT 95–98
[2025-04-17] MEDS: Ketorolac 30 MG/ML Syringe IV ×3 (01:16→12:30)
[2025-04-17] MEDS: 0.9% Saline Lock 10 ML Syringe IV ×3 (01:16→12:30)
[2025-04-17 06:14] LABS: Hematocrit 30.6 % (37-47); Hemoglobin 10.1 g/dL (12.0-15.0); Mean Corp Hgb Conc 33.0 g/dL (32-36); Mean Corpuscular Volume 91.1 fL (81-99); Mean Platelet Vol. 10.3 fl (6.2-12.0); Platelet Count 166 K/mm3 (150-450); RBC Distribution Width CV 13.7 % (11.6-14.6); RBC Distribution Width SD 45.9 fl (35.1-43.9); Red Blood Count 3.36 M/mm3 (4.2-5.4); White Blood Count 14.7 K/mm3 (4.4-11.0)
[2025-04-17] MEDS: Lactated Ringers 1,000 ML 100 ML IV (07:09)
[2025-04-17] MEDS: Senna/Docusate Sodium 1 Tablet PO (10:12)
--- NOTE | 2025-04-17 16:37 | DCINST_ITS ---
Discharge Instructions DC O2, CPAP, BIPAP needs Home O2 Discharge instructions: No Dressing / Incision Discharge Activity: May Not Drive (for 2 weeks or while taking narcotic pain medications.), May Shower and May Take a Tub Bath (in 7 days) May shower in (days): 0 May resume sexual activity in: 4-6 weeks Weight Bearing Status: Full weight bearing Lifting Restrictions: 20 pounds Dressing / Incision Call your doctor if your incision/area has: Continuous Slow Oozing, Sudden Increased Bleeding, Increased Pain/ Swelling, Increased Redness and Foul Smelling Discharge Call your doctor if you observe: Fever of 101 or Higher and Using more than 1 pad per hour (for 2 hours) Suture Line Care: Avoid Pulling/Pushing and Avoid Pinching/Bending Cleanse incision/area with: Soap & Water and Keep Dressing Clean & Dry Follow Up Care Please Follow Up With: Smiley Madrid MD When: Call [phone] to make an appointment for an incision check in 1-2 weeks. Test Results: Test results from this visit will be discussed in further detail at your follow- up appointment, if applicable. Discharge Plan Admission Admit Date/Time: 04/16/25 12:51 Attending Provider: Smiley Madrid Primary Care Provider: Cain Holley Discharge Orders/Prescriptions Prescriptions: No Action PNV-[place] 28-1-300 mg capsule 1 cap PO DAILY cephalexin 500 mg capsule 500 mg PO QDAY Qty: 30 6RF Rx Instructions: take daily after completing course of acute therapy levothyroxine 150 mcg tablet 150 mcg PO .COMPLEX Rx Instructions: 150 mcg orally, 2 tabs Sunday'; 1 tab Sunday - Sunday ferrous sulfate [FeroSul] 325 mg (65 mg iron) tablet 325 mg PO DAILY sertraline 25 mg tablet 25 mg PO DAILY Qty: 30 3RF Referrals / Follow Up: Cain Holley MD [Primary Care Provider, Family Practice]
--- NOTE | 2025-04-17 16:39 | PCM.PN.OB ---
Subjective Subjective Patient doing well without complaints. Tolerating PO. Ambulating and voiding without difficulty. feeding well. Denies chest pain, shortness of breath, calf pain/swelling, fevers, chills, lightheadedness. Objective Data Objective Data Vital Signs: Vital Signs Temp Pulse Resp BP Pulse Ox O2 Del Method 97.8 F 66 16 108/74 96 Room Air 04/17/25 12:30 04/17/25 12:30 04/17/25 12:30 04/17/25 12:30 04/17/25 05:00 04/17/25 05:00 Oxygen Delivery Method Room Air Weight: 179 lb 0.246 oz Body Mass Index (BMI) 30.7 Intake & Output: Intake and Output for Last 24 Hours 04/15/25 04/16/25 04/17/25 23:59 23:59 23:59 Intake Total 2745.82 / 2745.82 1525.00 / 1525.00 Output Total 975 / 975 1600 / 1600 Balance 1770.82 / 1770.82 -75.00 / -75.00 Lab / Micro Data 04/17/25 06:07 Labs: Laboratory Results - last 24 hr 04/17/25 06:07: WBC 14.7 H, RBC 3.36 L, Hgb 10.1 L, Hct 30.6 L, MCV 91.1, MCH 30.1, MCHC 33.0, RDW Std Deviation 45.9 H, RDW Coeff of Shantel 13.7, Plt Count 166, MPV 10.3 ROS Constitutional Constitutional: Reports systems reviewed and no addt'l complaints, except as documented Cardiovascular Cardiovascular: Reports systems reviewed and no addt'l complaints, except as documented Respiratory/Chest Respiratory/Chest: Reports systems reviewed and no addt'l complaints, except as documented Gastrointestinal Gastrointestinal: Reports systems reviewed and no addt'l complaints, except as documented Physical Exam Const alert, oriented x3 and no apparent distress HEENT Head and Scalp: atraumatic Resp normal respiratory effort GI soft to palpation and non-tender Inspection: incision intact, healing well and drainage (none) Bimanual Exam - Vag & Uterus: uterus non-tender Uterus Palpation: uterus fundus firm (below Umbilicus) Assessment & Plan (1) delivery delivered: COMMENT: RLTCS SM 35 PPROM girl Avara (2) Status post bilateral salpingectomy: PLAN: Plan s/p LTCS PPD # 1 1. routine post care 2. breast feeding- support given 3. rh positive 4. rubella immune
[2025-04-18 01:17] VITALS: BP 114/65; PULSE 70; RESP 18; TEMP 36.4; O2SAT 98
[2025-04-18 07:56] VITALS: BP 120/67; PULSE 78; RESP 16; TEMP 37.1; O2SAT 99
[2025-04-18] MEDS: Senna/Docusate Sodium 1 Tablet PO (08:11)
--- NOTE | 2025-04-18 09:40 | PN.OBGYN_ITS ---
Subjective Subjective Patient doing well without complaints. Tolerating PO. Ambulating and voiding without difficulty. Feeding well. Denies chest pain, shortness of breath, calf pain/swelling, fevers, chills, lightheadedness. Objective Data Objective Data Vital Signs: Vital Signs Temp Pulse Resp BP Pulse Ox O2 Del Method 98.8 F 78 16 120/67 99 Room Air 04/18/25 07:56 04/18/25 07:56 04/18/25 07:56 04/18/25 07:56 04/18/25 07:56 04/18/25 07:56 Oxygen Delivery Method Room Air Weight: 179 lb 0.246 oz Body Mass Index (BMI) 30.7 Intake & Output: Intake and Output for Last 24 Hours 04/16/25 04/17/25 04/18/25 23:59 23:59 23:59 Intake Total 2745.82 / 2745.82 1525.00 / 1525.00 Output Total 975 / 975 1600 / 1600 Balance 1770.82 / 1770.82 -75.00 / -75.00 Lab / Micro Data Attestation: I reviewed the patient's lab results. 04/17/25 06:07 ROS Constitutional Constitutional: Reports systems reviewed and no addt'l complaints, except as documented; Denies anorexia or headache(s) Cardiovascular Cardiovascular: Reports systems reviewed and no addt'l complaints, except as documented; Denies dizziness, dyspnea, nausea or tachypnea Respiratory/Chest Respiratory/Chest: Reports systems reviewed and no addt'l complaints, except as documented; Denies cough, dyspnea, shortness of breath at rest or tachypnea Gastrointestinal Gastrointestinal: Reports systems reviewed and no addt'l complaints, except as documented; Denies abdominal pain, constipation or nausea Genitourinary Genitourinary: Reports systems reviewed and no addt'l complaints, except as documented; Denies burning urination, difficulty urinating, dysuria, urinary frequency or urinary incontinence Musculoskeletal Musculoskeletal: Reports systems reviewed and no addt'l complaints, except as documented Integumentary Integumentary: Reports systems reviewed and no addt'l complaints, except as documented Neurologic Neurologic: Reports systems reviewed and no addt'l complaints, except as documented; Denies abnormal speech, dizziness or headache(s) Psychiatric Psychiatric: Reports systems reviewed and no addt'l complaints, except as documented Endocrine Endocrinology: Reports systems reviewed and no addt'l complaints, except as documented Hematologic/Lymphatic Hematologic/Lymphatic: Reports systems reviewed and no addt'l complaints, except as documented Physical Exam Const alert, oriented x3 and no apparent distress Neck full ROM Resp normal respiratory effort, normal air movement and no retractions Effort and Inspection: able to speak in complete sentences and symmetric chest movement GI soft to palpation Inspection: incision intact Bladder / Kidney Exam: bladder normal to palpation Uterus Palpation: uterus fundus firm Extremity normal to inspection and full ROM Psych mental status grossly normal, thought process normal and cooperative Assessment & Plan (1) Status post bilateral salpingectomy: (2) delivery delivered: COMMENT: RLTCS SM 35 PPROM girl Avara (3) premature rupture of membranes (PPROM) with unknown onset of labor: (4) Mild anemia: COMMENT: OTC iron (5) Recurrent urinary tract infection affecting in second trimester: COMMENT: keflex prophylaxis (6) Family history of congenital anomaly of cardiovascular system: COMMENT: Stephen's brother born with transposition of arteries, echo 22-26wk ordered (7) Hx of section: COMMENT: x3, plans c section -05/11/25 . (8) Advanced maternal age (AMA) in : (9) Supervision of high-risk : COMMENT: PRR , MARGUERITE 05/16/25, girl Avara PC Raffy Sarkar Lieda, Stephen (10) : QUALIFIERS: Weeks of gestation: 34 weeks Qualified Code(s): Z 3A.34 - 34 weeks gestation of COMMENT: NIPT low risk carrier and afp declined. female. nl anatomy (11) History of miscarriage: COMMENT: x3 (12) Hypothyroidism: COMMENT: needs TSH qtrimester- currently increased Levothyroxine from 137 to 150mcg. rpt in one month from 04/14 visit. order in. pt aware. (13) Anxiety: COMMENT: Zoloft adequate/stable Charges/Coding Multi Select Codes Urinary/Genital Urinary/Genital CPT Codes: No Charge
--- NOTE | 2025-04-22 15:07 | NURSING ---
8179- This [facility] called spoke with pt for follow up phone call. MOB reports Doing good, c/s dressing came off today and feeling everything is looking good there as well, feeling some occasional sharp discomfort but feels it is to be expected. Reviewed to call physician if pain worsens, redness, any drng from inc site. Pt reports understanding discharge instructions and when to call MD. Pt reports vag discharge decreasing and that is going, is able to latch without shield, pt states she contacted [facility] yesterday regarding her plan of care for her rt nipple being torn up when using the nipple shield but stating she had to use it latch d/t her breasts being too full. Reviewed pumping to help soften the tissue can help with softening the tissue, pt states she had to do that with her first child as well. pt declines wanting to make follow up apt at this time, states she spoke with Sophia and feels she wants to try some of the things she suggested to see if this helps before coming in. pt states baby has a follow up weight check scheduled for sunday and if the weight hasnt gone up she may make an apt and be seen by .
--- NOTE | 2025-04-23 12:33 | CASEMGMT ---
Social Work Assessment Labor and Delivery Unit Patient Address: [address] [place] [address] [place] [address] Phone number: [phone] Date of Referral: 04/16/25 Time of Referral:? 1313 Referred By: Dr. Madrid Date of intervention: 04/17/25 Time of Intervention:?1420 Reason for Referral:? parents were both addicts but patient was not raised by them. Sw completed chart review and notes social work consult. Sw presented to bedside and introduced self to mother of baby, TODD- Mimi and father of baby, REYNA- Choco. Sw explained reason for sw involvement and completed psychosocial assessment. History obtained from: medical records, MOB and FOB Household composition: Currently residing in the home is REYNA BROOKS, their three older children: Rema (8), Raffy (6) and Gwendolyn (3). [place] baby to be included in the home when ready for discharge. Parents deny any housing concerns stating their home is safe and secure. Patient's parent/guardian status:? ?Parents report they met while attending college together. No concerns reported of domestic violence or intimate partner violence. baby is fourth baby for parents together. Medical History: ?TODD is 35 year old female who is 7, para 3- now 4 following labor and delivery of . TODD received routine care during with [place]. TODD presented to hospital and delivered baby via at 35 weeks gestation. Baby girl, named Yari, was born weighing 6lbs 2oz and had apgars of 8 and 8 at one and five minutes of life, respectfully. TODD is breast feeding and states that baby will be followed by Dr. Espinosa for pediatric care and follow up. Educational Status:? Both parents graduated from high school and obtained Bachelor's degrees. NO problems with reading, learning or comprehension. Financial Status: both parents are gainfully employed outside of the home. MOB works for [email or web address] and FOB does inventory management Supplies:??All necessary baby supplies are obtained, including: car seat, safe sleep space, clothes, diapers and wipes. Childcare/Caregiver(s):? TODD states that she will be the primary caregiver to baby. Transportation:??Both parents have their drivers license and reliable means of transportation. Programs/Agencies Involved: ???Parents are not connected to any community agencies that assist them financially. Children Services/Legal Issues:???No prior involvement with children services, no issues or concerns warranting referral to be made at this time. Behavioral Health Issues: ??Mental Health History: REYNA denies mental health history. TODD states that she has anxiety, but denies struggling with it for some years. TODD is prescribed zoloft to help her manage her symptoms of anxiety. TODD states that she did not experience any anxiety throughout her . TODD does not indicate that she is connected to any community agencies that assist her mental health. ??? Substance Use History:?Parents deny substance use prior to and during . ? Family History: TODD states that she is adopted, and her biological parents were addicts. TODD states that it is because of this that she and REYNA do not use substances. ? Drug Screens: ??No drug screens observed while completing chart review. Family/Social Stressors:? Parents deny any issues, stressors or concerns while meeting with kartik. Support Systems: TODD states that paternal grandparents are their biggest supports, along with her aunt and uncle. Depression/Shaken Baby/Safe Sleeping:?Sw educated MOB and FOElías on signs and symptoms of baby blues and mood and anxiety symptoms to be mindful of during this period. TODD states that she has never struggled with her mental health following the delivery of any of her children. TODD states that if she were to struggle she would talk to her OBGYN or FOB. FOB stated that although MOB thinks that she is open with him regarding her metnal health, he believes that she is closed off, and he has to get her to open up to him. Sw encouraged MOB to be more open to discussing what she is experiencing, even if she not able to put a label to her emotions, be comfortable asking for help. MOB stated that she would work at that. Sw expressed importance of safe sleep inside and outside of the bedroom. Sw educated MOB on always placing baby in bedside bassinet and not sleeping with baby in bed with her. Sw explained that baby's bassinet should be free of any blankets, pillows or stuffed animals. And baby should be sleeping in a onsie and a sleep sack/ swaddle sack for sleep. MOB expressed understanding. Sw discouraged sleeping with baby on a couch or in a reclining chair explaining that sleep accidents also happen in those areas as well. Sw educated MOB on shaken baby prevention. MOB expressed understanding. ASSESSMENT:? MOB and baby admitted following labor and delivery. MOB with mental health history of anxiety and is prescribed Zoloft to help her manage her symptoms. MOB states that she is not always comfortable talking, even though she thinks that she is masking her feelings, FOB is always able to tell. The importance of talking about how MOB is feeling was discussed. MOB and FOB recepitve to meeting with sw, however the conversation felt pressured, parents did not seem open to talking about certain topics, and FOB observed partially to say things to MOB that were nitpicky. MOB also observed to be closed off and not very talkative, other than answering questions with a yes or a no answer. FOB would then panchal answers that sw asked, although in a sense to get sw to complete assessment. Parents observed to open up more towards the end of the conversation, FOB's body language also opened up more as he sat up on couch and moved closer to where forensic social worker was sitting. MOB was laying comfortably in bed and observed to be holding baby. MOB looked at baby frequently and smiled, provided loving hands on care to baby. MOB reported to feeling good following delivery, and denied feeling sad, anxious or down. PLAN:? No other services requested or indicated. MOB and baby to be discharged when medically ready. Parents were provided literature regarding: signs and symptoms of baby blues and mood and anxiety disorders, Help Me Grow, shaken baby prevention, ABCs of safe sleep and a list of county resources that are available for them should any needs present themselves. Doretha Mccracken, PARTS INTERPRETER, MIDDLEWARE CONSULTANT
== END 2025-04-18 11:20 | disposition home or self-care (01) | DRG 783 ==
LOC: WPOUT 12:55 → WP 12:55
PROVIDERS: Admitting Provider Obstetrics & Gynecology; PCP Family Medicine; Referring Provider Obstetrics & Gynecology; Visit Provider Obstetrics & Gynecology
DX: O34.211 Maternal care for low transverse scar from previous cesarean delivery (principal); O60.14X0 Preterm labor third trimester with preterm delivery third trimester, not applicable or unspecified; O42.013 Preterm premature rupture of membranes, onset of labor within 24 hours of rupture, third trimester; E03.9 Hypothyroidism, unspecified; F41.9 Anxiety disorder, unspecified; Z37.0 Single live birth; O99.02 Anemia complicating childbirth; O99.344 Other mental disorders 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 childbirth; O99.284 Endocrine, nutritional and metabolic diseases 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 childbirth; O26.23 Pregnancy care for patient with recurrent pregnancy loss, third trimester; O99.892 Other specified diseases and conditions 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 childbirth; O34.83 Maternal care for other abnormalities of pelvic organs, third trimester; N83.8 Other noninflammatory disorders of ovary, fallopian tube and broad ligament; Z3A.35 35 weeks gestation of pregnancy; Z79.890 Hormone replacement therapy; Z79.899 Other long term (current) drug therapy; Z30.2 Encounter for sterilization; Z87.440 Personal history of urinary (tract) infections; Z86.32 Personal history of gestational diabetes; Z87.59 Personal history of other complications of pregnancy, childbirth and the puerperium; Z82.79 Family history of other congenital malformations, deformations and chromosomal abnormalities
CPT/HCPCS: 59025; 59050; 81002; 84112; 85025; 85027; 86780; 86850; 86900; 86901; 88302; 99221; A4216; G0378; J0702; J2405

== ENCOUNTER → 2025-04-27 | Outpatient (CLI) | payer OTHER, SELFPAY ==
[2025-04-27 12:51] LABS: Hematocrit 40.8 % (37-47); Hemoglobin 13.4 g/dL (12.0-15.0); Immature Granulocytes Count 0.020 X10^3/uL (0.0-0.0); Mean Corp Hgb Conc 32.8 g/dL (32-36); Mean Corpuscular Volume 90.7 fL (81-99); Mean Platelet Vol. 10.1 fl (6.2-12.0); NRBC Flagged by Analyzer 0 % (0-5); Platelet Count 317 K/mm3 (150-450); RBC Distribution Width CV 13.3 % (11.6-14.6); RBC Distribution Width SD 44.6 fl (35.1-43.9); Red Blood Count 4.50 M/mm3 (4.2-5.4); White Blood Count 8.2 K/mm3 (4.4-11.0)
[2025-04-27 13:18] LABS: AST(SGOT) 21 U/L (<=31); Alanine Aminotransfer ALT/SGPT 15 U/L (<=34); Albumin, Serum 4.4 g/dL (3.5-5.0); Alkaline Phosphatase 177 U/L (35-104); Anion Gap 13 (5-15); BUN 10 mg/dL (4-19); BUN/Creat Ratio 14.7 RATIO (10-20); Calcium,Total 10.0 mg/dL (7.6-11.0); Carbon Dioxide 24.7 mmol/L (20.0-29.0); Chloride 103 mmol/L (96-106); Globulin 3.3 g/dL (2.2-4.2); Glucose 86 mg/dL (70-99); Potassium 4.2 mmol/L (3.5-5.1)
== END | disposition home or self-care (01) ==
PROVIDERS: Obstetrics & Gynecology; PCP Family Medicine; Visit Provider Nurse Practitioner Women's Health
DX: R10.10 Upper abdominal pain, unspecified (principal); E03.9 Hypothyroidism, unspecified
CPT/HCPCS: 36415; 80053; 84443; 85025

== ENCOUNTER → 2025-05-01 | Outpatient (CLI) | payer OTHER, SELFPAY ==
--- NOTE | 2025-05-01 08:17 | US_ITS ---
PROCEDURE: GALLBLADDER 05/01/2025 REASON FOR EXAM: UPPER ABDOMINAL PAIN TECHNIQUE: Procedure Code: USGB Modality: US Procedure: GALLBLADDER COMPARISON: None FINDINGS: Liver: Grossly normal size and echotexture. Measures 16.6 cm Gallbladder: No stones, sludge, wall thickening or tenderness. Gallbladder wall measures 2.0 mm Common bile duct: Normal measuring 2.5 mm. Pancreas: Visualized portions are sonographically unremarkable. Other: Right kidney measures 11.7 cm. No hydronephrosis, calculi or mass. US/Gallbladder IMPRESSION: No suspicious sonographic findings Reading Location: [id number]
--- OUTSIDE RECORDS SUMMARY | 2025-05-01 08:19 | XMS RPT_ITS | CCD ---
Author Organization [facility] Care Team Providers Care Records Management Analyst Name Role Phone Unavailable Primary Care Provider Unavailabl e Pending Provider Unavailable Unavailable Update Needed Unavailable Unavailable Unknown, Referring Provider Unavailable Unav ailable Dr. Cain Pretty Primary Care Provider Dr. Cain Pretty Referring Provider [phone] Dr. Jackie Patterson Attending Provider 1([phone]) Dr. Smiley Madrid Attending Provider [phone] Dr. Michelet Martin Attending Provider [phone] Dr. Cain Pretty Primary Care Provider Dr. Cain Pretty Referring Provider [phone] Dr. Jackie Patterson Attending Provider 1(08 [phone]) Dr. Smiley Madrid Admit Provider [phone] Dr. Smiley Madrid Referring Provider [phone] Dr. Smiley Madrid Other Provider [phone] Tiki ASHBY, ISMA-Kapil Bustos Attending Provider [phone] Cain Pretty MD Primary Care Provider [phone] Cain Pretty MD Primary Care Provider [phone] Cain Pretty MD Primary Care Provider [phone] Cain Pretty MD Primary Care Provider [phone] Dr. Cain Pretty Primary Care Provider Dr. Cain Pretty Referring Provider [phone] EZEQUIEL San Attending Provider [phone] Cain Pretty MD Primary Care Provider Maria De Jesus DORSEY, Cain Mullins Primary Care Provider Knoble BONDERITE OPERATOR.GRAIN THRESHER, Andreia Unavailable Richy PERDOMO, Catarina Unavailable Maria De Jesus DORSEY, Dr. Barlow Primary Care Provider Maria De Jesus DORSEY, Dr. Barlow Referring Provider Jaxon Claudio DO, Dr. Mejia Attending Provider Jaxon Claudio DO, Dr. Mejia Referring Provider Rex DORSEY, Dr. Samaniego Attending Provider Rex DORSEY, Dr. Samaniego Emergency Provider Mercy DORSEY, Dr. Reis Attending Provider Mercy DORSEY, Dr. Reis Referring Provider Mercy DORSEY, Dr. Reis Other Provider [phone] Knoble BONDERITE OPERATOR.GRAIN THRESHER, Andreia Unavailable Knoble BONDERITE OPERATOR.GRAIN THRESHER, Andreia Unavailable Richy PERDOMO, Catarina Unavailable Maria De Jesus DORSEY, Dr. Barlow Primary Care Provider [phone] Dr. Smiley Madrid MD Attending Provider Dr. Smiley Madrid MD Referring Provider [phone] Dr. Cain Pretty MD Referring Provider Margo San CNM Attending Provider [phone] Margo San CNM Referring Provider [phone] Dr. Cain Pretty MD Primary Care Provider [phone] Dr. Smiley Madrid MD Attending Provider Dr. Smiley Madrid MD Referring Provider Dr. Jackie Patterson DO Attending Provider CAIN PRETTY Referring Unavailable CAIN PRETTY Primary Care Unavailable MARIA DE JESUS, CAIN A Referring Unavailable MARIA DE JESUS, CAIN A Primary Care Unavailable MARIA DE JESUS, CAIN A Referring Unavailable MARIA DE JESUS, CAIN A Primary Care Unavailable MARIA DE JESUS, CAIN A Referring Unavailable MARIA DE JESUS, CAIN A Primary Care Unavailable MARIA DE JESUS, CAIN A Referring Unavailable MARIA DE JESUS, CAIN A Primary Care Unavailable MARIA DE JESUS, CAIN A Referring Unavailable MARIA DE JESUS, CAIN A Primary Care Unavailable Dr. Cain Pretty MD Primary Care Physician [phone] Margo San CNM Attending Physician [phone] Mercy DORSEY, Dr. Reis Attending Physician Dr. Jackie Patterson DO Attending Physician BULMARO MALONE Referring Unavailable JACKIE SANDERS Attending Unavailable MARIA DE JESUS, CAIN A Primary Care Unavailable JACKIE BOJORQUEZ Referring Unavailab le MARIA DE JESUS, CAIN A Primary Care Unavailable CHUCK EPPS Attending Unavailable ELEANOR CLARK Attending Unavailable MARIA DE JESUS, CAIN A Primary Care Unavailable MARIA DE JESUS, CAIN A Primary Care Unavailable MARIA DE JESUS, CAIN A Attending Unavailable GUALBERTO HOPKINS Attending Unavailable MARIA DE JESUS, CAIN A Primary Care Unavailable Maria De Jesus DORSEY, Dr. Barlow Primary Care Physician [phone] Dr. Cain Pretty MD Referring Provider Dr. Jackie Patterson DO Attending Physician Margo San CNM Attending Physician Dr. Smiley Madrid MD Attending Physician Dr. Smiley Madrid MD Referring Provider [phone] Maria De Jesus, Cain Primary Care Unavailable Margo San Attending Unavailable Maria De Jesus, Cain Referring Unavailable Smiley Madrid Attending Unavailable Maria De Jesus, Cain Primary Care Unavailable Maria De Jesus, Cain Referring Unavailable Maria De Jesus, Cain Primary Care Unavailable Maria De Jesus, Cain Referring Unavailable Jackie Patterson Attending Unavailabl e Maria De Jesus, Cain Primary Care Unavailable Maria De Jesus, Cain Referring Unavailable Margo San Attending Unavailable Smiley Madrid Attending Unavailable Smiley Madrid Referring Unavailable Maria De Jesus, Cain Primary Care Unavailable Maria De Jesus, Cain Primary Care Unavailable Smiley Madrid Attending Unavailable Maria De Jesus, Cain Referring Unavailable Tiki TELECOMMUNICATIONS LINE INSTALLER, Bulmaro Attending Unavailable Maria De Jesus, Cain Primary Care Unavailable Smiley Madrid Consulting Unavailable Smiley Madrid Referring Unavailable Maria De Jesus, Cain Primary Care Unavailable Smiley Madrid Attending Unavailable Jackie Patterson Attending Unavailabl e Maria De Jesus, Cain Primary Care Unavailable Maria De Jesus, Cain Referring Unavailable Maria De Jesus, Cain Primary Care Unavailable Maria De Jesus, Cain Referring Unavailable Smiley Madrid Attending Unavailable Maria De Jesus, Cain Primary Care Unavailable Maria De Jesus, Cain Referring Unavailable Margo San Attending Unavailable Maria De Jesus, Cain Primary Care Unavailable Aden Goodman Attending Unavailable DaniellaonySmiley Referring Unavailable Maria De Jesus, Cain Primary Care Unavailable Smiley Madrid Attending Unavailable Maria De Jesus, Cain Primary Care Unavailable Smiley Madrid Referring Unavailable Smiley Madrid Attending Unavailable Smiley Madrid Attending Unavailable DaniellaonySmiley Referring Unavailable Maria De Jesus, Cain Primary Care Unavailable Estefanía Pattersonnifer Referring Unavailabl e Katarina Pattersonfer Attending Unavailabl e Maria De Jesus, Cain Primary Care Unavailable Smiley Madrid Attending Unavailable Maria De Jesus, Cain Primary Care Unavailable Maria De Jesus, Cain Referring Unavailable Maria De Jesus, Cain Primary Care Unavailable Maria De Jesus, Cain Referring Unavailable Margo San Attending Unavailable Smiley Madrid Referring Unavailable Maria De Jesus, Cain Primary Care Unavailable Smiley Madrid Attending Unavailable Maria De Jesus, Cain Primary Care Unavailable Smiley Madrid Admitting Unavailable Smiley Madrid Attending Unavailable Maria De Jesus, Cain Primary Care Unavailable Margo San Attending Unavailable Margo San Referring Unavailable Maria De Jesus, Cain Primary Care Unavailable Maria De Jesus, Cain Referring Unavailable Margo San Attending Unavailable Maria De Jesus, Cain Primary Care Unavailable Maria De Jesus, Cain Referring Unavailable Margo San Attending Unavailable Maria De Jesus, Cain Primary Care Unavailable Maria De Jesus, Cain Referring Unavailable Smiley Madrid Attending Unavailable Maria De Jesus, Cain Primary Care Unavailable Maria De Jesus, Cain Referring Unavailable Smiley Madrid Attending Unavailable Maria De Jesus, Cain Primary Care Unavailable Smiley Madrid Attending Unavailable Maria De Jesus, Cain Referring Unavailable Maria De Jesus, Cain Primary Care Unavailable Alice Padilla Attending Unavailable Allergies Allergy Classification Reported Allergen(s) Allergy Type Date of Onset Reaction(s) Facility (20 sources) NITROFURANTOIN, MACROCRYSTALS / Nitrofurantoin, Monohydrate; Translations: [NITROFURANTOIN MONOHYD/M-CRYST] Drug Allergy 3 Other: See Comments [facility] Work Phone: (17 sources) Nitrofurantoin Drug Allergy 4 [facility] (1 source) Nitrofurantoin Drug Allergy 5 [facility] Repository Medications Current Medications Medication Drug Class(es) Dates Sig (Normalized) Sig (Original) acetaminophen 325 mg oral tablet (1 source) Start: 01-11-2019 take 325 mg by mouth every four hours 325 mg, Oral, EVERY 4 HOURS, First dose on 01/11/19 at 0130 Maximum dose of acetaminophen is 4000 mg from all sources in 24 hours. cefadroxil 500 mg oral capsule (20 sources) Cephalosporin Antibacterial Start: 06-29-2023 End: 07-13-2023 take 1 capsule by mouth twice daily cefADROxil (DURICEF) 500 mg capsule Take 1 capsule by mouth two times a day for 14 days. 28 capsule 0 06/29/2023 07/13/2023 Active Start: 06-21-2021 End: 07-08-2021 take 1 capsule by mouth twice daily Cefadroxil 500 mg capsule Discontinued 500 mg PO TWICE A DAY June 23, 2021 12:00am July 08, 2021 2:00pm Comment on above: Take 1 capsule by mo [facility] twice daily. Take 1 capsule by mo [facility] two times a day for 14 days. cefdinir 300 mg oral capsule (1 source) Cephalosporin Antibacterial Start: 2 End: 2 take 1 capsule by mouth twice daily cefdinir (OMNICEF) 300 mg capsule Indications: Acute cystitis with hematuria Take 1 capsule by mouth twice daily for 5 days. 10 capsule 0 04/03/2022 04/08/2022 Active Comment on above: Take 1 capsule by mo [facility] twice daily for 5 days. cephalexin 500 mg oral capsule (20 sources) Cephalosporin Antibacterial Start: 5 take 1 capsule by mouth once daily Cephalexin 500 mg capsule Active 500 mg PO daily 03 11January 11, 2025 11:00pm take daily after completing course of acute therapy Complies with drug therapy Start: 01-06-2025 End: 01-14-2025 take 1 capsule by mouth three times daily Cephalexin 500 mg capsule Discontinued 500 mg PO THREE TIMES A DAY 21 7 0 January 06, 2025 11:00pm January 12, 2025 11:00pm January 13, 2025 11:07pm Start: 10-09-2024 End: 10-16-2024 take 1 capsule by mouth twice daily cephALEXin (KEFLEX) 500 mg capsule Take 1 capsule by mouth two times a day for 7 days. 14 capsule 10/09/2024 10/16/2024 Active Start: 05-31-2022 End: 06-07-2022 take 1 capsule by mouth twice daily cephALEXin (KEFLEX) 500 mg capsule Take 1 capsule by mouth twice daily for 7 days. 14 capsule 0 05/31/2022 06/07/2022 Active Start: 06-13-2021 take 1 capsule by mo ut twice daily cephALEXin (KEFLEX) 500 mg capsule Take 500 mg by mouth twice daily. 0 06/13/2021 Active Start: 03-21-2021 End: 09-09-2021 take 1 tablet by mouth twice daily Cephalexin 500 mg tablet Discontinued 500 mg PO TWICE A DAY August 22, 2021 4:34am September 09, 2021 10:14am UTI Start: 02-06-2021 End: 02-18-2021 take 1 capsule by mouth every six hours Cephalexin 500 MG capsule Discontinued 500 mg PO EVERY 6 HOURS 40 0 February 05, 2021 11:00pm February 18, 2021 8:49am Comment on above: Take 500 mg by mouth twice daily. Take 1 capsule by mo uth twice daily for 7 days. 1 ml diphenhydrAMINE hydrochloride 50 mg/ml cartridge (1 source) Histamine-1 Receptor Antagonist Start: 019 25 mg, Intravenous, EVERY 6 HOURS PRN, Itching, Hives, Starting 01/11/19 at 0106, docusate sodium 100 mg oral capsule (1 source) Start: take 100 mg by mouth twice daily as needed for constipation 100 mg, Oral, 2 TIMES DAILY PRN, Constipation, Starting 01/11/19 at 0106 Do not crush or break. ibuprofen 600 mg oral tablet (2 sources) Nonsteroidal Anti-inflammatory Drug Start: 019 take 1 tablet by mouth every six hours ibuprofen (ADVIL;MOTRIN) 600 MG tablet Take 1 tablet by mouth every 6 hours 120 tablet 3 01/13/2019 Active Start: 01-11-2019 take 600 mg by mouth every six hours 600 mg, Oral, EVERY 6 HOURS, First dose on 01/11/19 at 0130 Do not crush or chew. lanolin 0.5 mg/mg topical ointment (1 source) Start: 01-11-2019 Topical, EVERY 1 HOUR PRN, Dry Skin, nipple discomfort, Starting 01/11/19 at 0106, levothyroxine sodium 0.15 mg oral tablet (20 sources) l-Thyroxine Start: 03-21-2024 End: 10-03-2024 Levothyroxine 150 mcg tablet Active 150 ug PO .COMPLEX October 03, 2024 1:25pm hypothyorid 150 mcg orally, 2 tabs ; 1 tab Sunday - Sunday Complies with drug therapy Start: 04-14-2021 End: 08-25-2024 take 1 tablet by mouth once daily Levothyroxine 150 mcg tablet Discontinued 150 ug PO DAILY August 22, 2021 4:34am March 21, 2024 1:05pm hypothyorid Start: 04-14-2021 End: 04-14-2021 take 1 capsule by mouth once daily Levothyroxine 150 mcg capsule Discontinued 150 ug PO DAILY 30 30 6 April 14, 2021 12:00am April 14, 2021 10:49am Start: 01-31-2021 End: 01-20-2023 take 1 tablet by mouth once daily levothyroxine (SYNTHROID) 137 mcg tablet Indications: Acquired hypothyroidism TAKE 1 TABLET BY MOUTH DAILY 30 tablet 5 07/10/2022 01/11/2023 Discontinued Start: 12-15-2020 End: 04-14-2021 take 1 capsule by mouth once daily Levothyroxine 137 mcg capsule Discontinued 137 ug PO DAILY December 14, 2020 11:00pm April 14, 2021 10:07am Start: 01-10-2019 take 125 ug by mouth once daily 125 mcg, Oral, DAILY, First dose on 01/10/19 at 1545 Tube feeding (TF) interaction, obtain physician order to manage, recommend holding TF for 30 minutes before and after dose. Start: 06-04-2018 Levothyroxine Sodium 112 MCG Oral Tablet Refills: 0 DO Start : 04-Jun-2018 Active Comment on above: TAKE 1 TABLET BY NADIA TH DAILY TAKE 1 TABLET BY NADIA TH DAILY Mon-Sun and Two on Sunday Take 1 tablet by nadia th once daily. Take on empty stomach. For Thyroid. Take 1 tablet by nadia th once daily. Jadon-Sat and two on Sunday. Take on empty stomach. For Thyroid. Multivit 29-Xpdt-Mmlrur 1-Dha (Pnv-Dha) 27 mg iron-1 mg -300 mg capsule (20 sources) Start: 01-04-2021 Multivit 65-Yohx-Egeqjp 1-Dha (Pnv-Dha) 27 mg iron-1 mg -300 mg capsule Active 1 CAP PO January 04, 2021 11:58am Start: 01-04-2021 Multivit 47-Ir on-Folate 1-Dha (Pnv-Dha) 27 mg iron-1 mg -300 mg capsule Active CAP PO January 04, 2021 11:58am Start: 01-04-2021 End: 07-13-2023 Multivit 37-Wvrb-Sqapbj 1-Dh a (Pnv-Dha) 27 mg iron-1 mg -300 mg capsule Discontinued 1 NMA PO January 03, 2021 11:00pm July 13, 2023 3:04pm Start: 01-04-2021 End: 07-13-2023 Multivit 44-Ttns-Eanutw 1-Dh a (Pnv-Dha) 27 mg iron-1 mg -300 mg capsule Discontinued 1 NMA PO January 04, 2021 12:00am July 13, 2023 4:04pm Start: 01-04-2021 End: 07-13-2023 Multivit 18-Bbis-Srhdmt 1-Dh a (Pnv-Dha) 27 mg iron-1 mg -300 mg capsule Discontinued 1 NMA PO January 04, 2021 12:00am July 13, 2023 4:04pm Start: 01-04-2021 End: 07-13-2023 Multivit 05-Ulwk-Mdnyxf 1-Dh a (Pnv-Dha) 27 mg iron-1 mg -300 mg capsule Discontinued 1 CAP PO January 04, 2021 12:00am July 13, 2023 4:04pm Mv-Mins 13-Acmf-Virsy No.1-D lopes (Pnv-Merrifield) 28-1-300 mg capsule (13 sources) Start: 10-03-2024 Mv-Mins 71-Iro n-Folic No.1-Dha (Pnv-Merrifield) 28-1-300 mg capsule Active NMA PO October 02, 2024 11:00pm Complies with drug therapy Start: 10-03-2024 Start: 10-03-2024 Mv-Mins 71-Iro n-Folic No.1-Dha (Pnv-Merrifield) 28-1-300 mg capsule Active NMA PO October 03, 2024 12:00am Complies with drug therapy Start: 10-03-2024 Mv-Mins 71-Iro n-Folic No.1-Dha (Pnv-Merrifield) 28-1-300 mg capsule Active NMA PO October 03, 2024 12:00am 1 ml nalbuphine hydrochloride 10 mg/ml injection (1 source) Opioid Agonist/Antagonist Start: 01-10-2019 nalbuphine (NUBAIN) injection 5 mg 1 ml naloxone hydrochloride 0.4 mg/ml injection (1 source) Opioid Antagonist Start: 01-10-2019 naloxone (NARCAN) injection 0.4 mg oxyCODONE (1 source) Opioid Agonist Start: 01-11-2019 oxyCODONE (ROXICODONE) immediate release tablet 5 mg oxytocin (PITOCIN) 30 units in 500 mL infusion (1 source) Start: 01-11-2019 125 mL/hr, Intravenous, at 125 mL/hr, CONTINUOUS, Starting 01/11/19 at 0130 For Post Use Only To follow initial bolus immediately after delivery. Verify patient received oxytocin 250cc bolus at delivery followed by an additional 250ccover 1 hour (250cc/hr).&nbsp ; Giv e after delivery of placenta. Pnv No.337-Oy-Oc3-Dha-E pa-Fish (3 sources) Start: 07-13-2023 take 1 tablet by mouth once daily Pnv No.004-Ta-Xr9-Dh a-Epa-Fish Active TABLET PO DAILY July 13, 2023 1:00am Pnv No.479-Cv-Mt1-Dha-E pa-Fish 180 mcg-35 mg- 25 mg-5 mg tablet,chewable (1 source) Start: 07-13-2023 Pnv No.493-Mj-Tn7-Dh a-Epa-Fish 180 mcg-35 mg- 25 mg-5 mg tablet,chewable Active {tbl} PO DAILY July 13, 2023 1:00am Vit-Fe Fumarate-FA ( VITAMIN) 27-1 MG TABS tablet (1 source) Start: 01-14-2019 take 1 tablet by mouth once daily Vit-Fe Fumarate-FA ( VITAMIN) 27-1 MG TABS tablet Take 1 tablet by mouth daily 30 tablet 0 01/14/2019 Active vit/iron fum/folic ac ( 1 + 1 ORAL) (4 sources) vit/iron fum/folic ac ( 1 + 1 ORAL) Take 1 tablet by mouth once daily. Active vitamin 27-1 MG tablet 1 tablet (1 source) Start: 01-11-2019 take 1 tablet by mouth once daily 1 tablet, Oral, DAILY, First dose on 01/11/19 at 0900 Begin when normal bowel activity resumes. simethicone 80 mg chewable tablet (1 source) Start: 01-11-2019 take 80 mg by mouth every six hours as needed 80 mg, Oral, EVERY 6 HOURS PRN, Cramping, Flatulence, Starting 01/11/19 at 0106, 3 ml sodium chloride 9 mg/ml injection (2 sources) Start: 01-11-2019 10 mL, Intravenous, EVERY 12 HOURS SCHEDULED (2 times per day), First dose on 01/11/19 at 0900, Start: 01-11-2019 take 10 mL intravenous route o nce 10 mL, Intravenous, PRN, Line Care, Starting 01/11/19 at 0106 After every IV line use triamcinolone acetonide 1 mg/ml topical cream (1 source) Corticosteroid Start: 12-14-2021 End: 12-24-2021 triamcinolone acetonide (KENALOG) 0.1 % cream Indications: Rash Apply 1 application to affected area three times daily for 10 days. Apply sparingly to area for rash/itching. 80 g 0 12/14/2021 12/24/2021 Active Comment on above: Apply 1 application to affected area three times daily for 10 days. Apply sparingly to area for rash/itching. Completed/Discontinued Medications Medication Drug Class(es) Dates Sig (Normalized) Sig (Original) acetaminophen 325 mg / oxyCODONE hydrochloride 5 mg oral tablet (20 sources) Opioid Agonist Start: 08-22-2021 End: 09-09-2021 Oxycodone-Acetamin ophen (Percocet) 5-325 mg tablet Discontinued 1 {tbl} PO EVERY 6 HOURS as needed for pain 20 7 0 August 23, 2021 September 09, 2021 10:14am delivery delivered Encounter for delivery without indication amoxicillin 875 mg oral tablet (10 sources) Penicillin-class Antibacterial Start: 10-30-2024 End: 11-04-2024 take 1 tablet by mouth twice daily Amoxicillin 875 mg tablet Discontinued 875 mg PO TWICE A DAY 10 5 0 October 29, 2024 11:00pm November 02, 2024 11:00pm November 03, 2024 11:08pm ampicillin 500 mg oral capsule (14 sources) Penicillin-class Antibacterial Start: 04-02-2024 End: 04-07-2024 take 1 capsule by mouth every eight hours Ampicillin 500 mg capsule Discontinued 500 mg PO Q8H 15 5 0 April 02, 2024 12:00am April 06, 2024 12:00am April 07, 2024 12:08am calcium chloride 0.0014 meq/ml / potassium chloride [...] daily. 30 tablet 0 05/29/2022 02/01/2023 Discontinued Comment on above: Take 1 tablet by nadia th once daily. ferrous sulfate 325 mg oral tablet (19 sources) Start: 07-13-2023 End: 03-21-2024 take 1 tablet by mouth once daily Ferrous Sulfate 325 mg (65 mg iron) tablet Discontinued 325 mg PO DAILY July 13, 2023 12:00am March 21, 2024 1:02pm Start: 01-13-2019 take 1 tablet by nadia th twice daily at mealtime ferrous sulfate 325 (65 Fe) MG tablet Take 1 tablet by mouth 2 times daily (with meals) 30 tablet 3 01/13/2019 Active Start: 01-11-2019 take 325 mg by mouth twice daily at mealtime 325 mg, Oral, 2 TIMES DAILY WITH MEALS, First dose on 01/11/19 at 0800 Start if Hgb less than 10. fluticasone propionate 0.05 mg/actuat metered dose nasal spray (1 source) Corticosteroid Start: 06-17-2021 take 2 spray(s) by mouth once daily fluticasone (FLONASE) 50 mcg/actuation nasal spray Indications: URI, acute Use 2 Sprays in each nostril once daily. Rinse mouth after use. 1 Each 1 06/17/2021 Active Comment on above: Use 2 Sprays in each nostril once daily. Rinse mouth after use. iv contrast (will be provided with radiology test) (9 sources) Start: 11-14-2022 End: 02-01-2023 iv contrast (will be provided with radiology [...] in the MR contrast administration guidelines link. 1 Each 0 11/14/2022 02/01/2023 Discontinued Start: 11-14-2022 iv contrast (w ill be provided with radiology test) MRI CSP [...] in the MR contrast administration guidelines link. 1 Each 0 11/14/2022 Active Comment on above: MRI CSP Inject, intr avenously, once for 1 dose. No IV access, [...] in the MR contrast administration guidelines link. 1 ml ketorolac tromethamine 30 mg/ml cartridge (1 source) Nonsteroidal Anti-inflammatory Drug, Cyclooxygenase Inhibitor Start: 2018 End: 2018 30 mg, Intravenous, EVERY 6 HOURS, First dose on 01/11/19 at 0130, For 24 hours Do not administer for more than 5 days. First dose should be administered 6 hours after anesthesia's administered dose in OR or PACU. Do NOT give with ibuprofen. methylPREDNISolone 4 mg oral tablet (20 sources) Corticosteroid Start: 2021 End: 2021 take 1 tablet by mouth once Methylprednisolone (Medrol (Tony)) 4 mg tablets,dose pack Discontinued 0 PO per package directions July 08, 2021 12:00am July 22, 2021 12:59pm PO PER PKG DIR miSOPROStol 0.2 mg oral tablet (15 sources) Prostaglandin E1 Analog Start: 2023 End: 2023 Misoprostol (Cytotec) 200 mcg tablet Discontinued 200 ug PO after meals and at bedtime 8 0 July 18, 2023 11:00pm March 21, 2024 1:03pm Incomplete spontaneous Incomplete spontaneous without complication 4 tablets vaginally now then other 4 tablets vaginally in 3 days. Mv-Mn 217-Ji-Ws8-Chr-Rjm-Leva 180 mcg-35 mg- 25 mg-5 mg tablet,chewable (13 sources) Start: 2023 End: 2024 Mv-Mn 364-Mh-Ur2-Otb-Ase-Exas 180 mcg-35 mg- 25 mg-5 mg tablet,chewable Discontinued {tbl} PO DAILY July 13, 2023 12:00am October 03, 2024 1:26pm Start: 07-13-2023 End: 10-03-2024 Mv-Mn 121-De-Ub4-Dha-Epa-Fis h 180 mcg-35 mg- 25 mg-5 mg tablet,chewable Discontinued {tbl} PO DAILY July 13, 2023 1:00am October 03, 2024 2:26pm naproxen 500 mg oral tablet (20 sources) Nonsteroidal Anti-inflammatory Drug Start: 08-22-2021 End: 09-09-2021 take 1 tablet by mouth twice daily as needed for pain Naproxen 500 mg tablet Discontinued 500 mg PO TWICE DAILY NEEDED as needed for Pain 30 August 23, 2021 1:47pm September 09, 2021 10:14am ondansetron 4 mg disintegrating oral tablet (20 sources) Serotonin-3 Receptor Antagonist Start: 03-31-2024 End: 05-19-2024 take 1 tablet by mouth every eight hours as needed for nausea and vomiting Ondansetron 4 mg tablet,disintegr ating Discontinued 4 mg PO Q8H as needed for nausea and vomiting 60 3 March 31, 2024 3:31pm May 19, 2024 11:14am Start: 02-06-2021 End: 07-22-2021 take 1 tablet by mouth every eight hours as needed for nausea and vomiting Ondansetron 4 mg tablet,disintegrating Discontinued 4 mg PO Q8H as needed for nausea and vomiting 10 February 05, 2021 11:00pm July 22, 2021 12:59pm Start: 01-11-2019 4 mg, Intraven ous, EVERY 6 HOURS PRN, Nausea, Starting 01/11/19 at 0106, Vit-Fe Fumarate-FA ( 1+1 PO) (1 source) End: 01-13-2019 Vit-Fe Fumarate-FA ( 1+1 PO) Take by mouth 0 01/13/2019 Discontinued (Stop Taking at Discharge) vits15/iron/folic/d ss ( AD ORAL) (20 sources) End: 02-01-2023 vits15/iron/folic/d ss ( AD ORAL) Take by mouth. 0 02/01/2023 Discontinued vits15/ iron/folic/dss ( AD ORAL) Take by mouth. 0 Active Comment on above: Take by mouth. sertraline 25 mg oral tablet (20 sources) Serotonin Reuptake Inhibitor Start: 01-31-2021 End: 08-25-2024 take 1 tablet by mouth once daily Sertraline 25 mg tablet Discontinued 25 mg PO DAILY February 05, 2021 11:00pm October 06, 2021 2:28pm anxiety Start: 12-15-2020 End: 01-04-2021 take 1 tablet by mouth once daily Sertraline (Zoloft) 25 mg tablet Discontinued 25 mg PO DAILY December 14, 2020 11:00pm January 04, 2021 10:58am Comment on above: Take 1 tablet by nadia th once daily. Problems Active Problems Problem Classification Problem Date Documented Date Episodic/Chronic Allergic reactions (1 source) Urticaria; Translations: [Urticaria, unspecified] Episodic Anxiety disorders (20 sources) Anxiety; Translations: [Anxiety disorder, unspecified] Onset: 04-20-2014 Chronic Comment on above: Zoloft adequate/stab le Deficiency and other anemia (4 sources) Anemia; Translations: [Anemia, unspecified] 02-09-2025 Episodic Comment on above: OTC iron Deficiency and other anemia (1 source) Anemia, unspecified; Translations: [Anemia, unspecified] Onset: 03-09-2025 Episodic Genitourinary symptoms and ill-defined conditions (1 source) Unspecified urinary incontinence; Translations: [Unspecified urinary incontinence] Onset: 01-06-2025 Chronic Genitourinary symptoms and ill-defined conditions (7 sources) Dysuria; Translations: [Dysuria] Onset: 10-09-2024 Episodic Headache; including migraine (5 sources) Cervicogenic headache; Translations: [Cervicogenic headache] 11-21-2022 Episodic Immunizations and screening for infectious disease (20 sources) Contact with and (suspected) exposure to other viral communicable diseases; Translations: [Patient encounter status] Onset: 03-09-2025 01-30-2024 Episodic Comment on above: repeat antibody test ing ordered repeat antibody test ing ordered, normal range in July Other complications of ; puerperium affecting management of mother (1 source) delivery - delivered; Translations: [Encounter for delivery without indication] Episodic Other complications of ; puerperium affecting management of mother (1 source) Encounter for delivery without indication; Translations: [ delivery, without mention of indication, delivered, with or without mention of antepartum condition] Episodic Other complications of ; puerperium affecting management of mother (20 sources) Deliveries by ; Translations: [Delivery by section] 07-13-2023 Episodic Comment on above: RLTCS SM 39 minimal scar tissue girl [place] Other complications of (20 sources) Anemia of ; Translations: [Anemia 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 , unspecified trimester] 08-22-2021 Chronic Other complications of (20 sources) Anemia 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 , unspecified trimester; Translations: [Anemia of mother, unspecified as to episode of care or not applicable] Chronic Other complications of (2 sources) Disorder of ; Translations: [ affected by growth restriction] Onset: 01-10-2019 01-10-2019 Episodic Other complications of (20 sources) Hyperemesis gravidarum; Translations: [Mild hyperemesis gravidarum] 02-14-2021 Episodic Other complications of (20 sources) Urinary tract infection in ; Translations: [Unspecified infection of urinary tract in , unspecified trimester] 08-22-2021 Episodic Comment on above: E coli at NOB. Rx am picillin. rpt culture next visit + at NOB. rpt +. soumya at rx remainder of at [facility]. needs repeat culture in November x1. repeat culture a t November appt keflex prophylaxis Other complications of (20 sources) H/O: ; Translations: [Supervision of with other poor reproductive or obstetric history, unspecified trimester] 07-22-2021 Episodic Other complications of (20 sources) Unspecified infection of urinary tract in , unspecified trimester; Translations: [Infections of genitourinary tract in , unspecified as to episode of care or not applicable] Onset: 01-06-2025 Episodic Other complications of (20 sources) History of gestational diabetes mellitus; Translations: [Supervision of with other poor reproductive or obstetric history, unspecified trimester] 07-13-2023 Episodic Comment on above: last Other complications of (17 sources) Spotting per vagina in ; Translations: [Spotting 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 , unspecified trimester] 07-13-2023 Episodic Other complications of (20 sources) High risk ; Translations: [Supervision of high risk , unspecified, unspecified trimester] 07-13-2023 Episodic Comment on above: , MARGUERITE 11/08/24, PC : Raffy Sarkar & Gwendolyn, : Stephen , MARGUERITE 05/16/25, P C Antonina, Gwendolyn Akbar, Stephen , MARGUERITE 05/16/25, g irl PC Antonina, Gwendolyn Akbar, Stephen Other complications of (16 sources) Missed miscarriage; Translations: [Missed ] 04-28-2024 Episodic Comment on above: proceed with d and c Other complications of (16 sources) Multigravida of advanced maternal age; Translations: [Supervision of elderly multigravida, unspecified trimester] 04-22-2024 Episodic Other complications of (20 sources) Advanced maternal age ; Translations: [Elderly multigravida, unspecified as to episode of care or not applicable] 10-03-2024 Episodic Other complications of (1 source) Decreased movements, unspecified trimester, not applicable or unspecified; Translations: [Decreased movements, unspecified trimester, not applicable or unspecified] Onset: 03-17-2025 Episodic Other complications of (1 source) Supervision of high risk , unspecified, unspecified trimester; Translations: [Supervision of high risk , unspecified, unspecified trimester] Onset: 03-09-2025 Episodic Other complications of (1 source) Unspecified infection of urinary tract in , second trimester; Translations: [Unspecified infection of urinary tract in , second trimester] Onset: 03-09-2025 Episodic Other female genital disorders (16 sources) History of premature labor; Translations: [Personal history of pre-term labor] 04-22-2024 Episodic Comment on above: 2nd baby-36 weeks Other nervous system disorders (2 sources) Demyelinating disease of central nervous system; Translations: [Demyelinating disease of central nervous system, unspecified] 12-21-2022 Chronic Other skin disorders (1 source) Eruption; Translations: [Rash and other nonspecific skin eruption] Episodic Other upper respiratory infections (1 source) Bacterial sinusitis; Translations: [Chronic sinusitis, unspecified] 06-29-2023 Chronic Other upper respiratory infections (3 sources) Sore throat symptom; Translations: [Acute pharyngitis] Onset: 02-16-2025 Episodic Residual codes; unclassified (20 sources) Restlessness and agitation; Translations: [Restlessness and agitation] Onset: 09-18-2019 09-18-2019 Chronic Residual codes; unclassified (20 sources) Family history of congenital anomaly of cardiovascular system; Translations: [Family history of other congenital malformations, deformations and chromosomal abnormalities] 08-22-2021 Episodic Comment on above: Stephen's brother born with transposition of arteries, echo normal Stephne's brother born with transposition of arteries, echo 22-26wk ordered Residual codes; unclassified (20 sources) Family history of other congenital malformations, deformations and chromosomal abnormalities; Translations: [Family history of congenital anomalies] Onset: 03-09-2025 Episodic Residual codes; unclassified (20 sources) History of uterine scar from previous surgery; Translations: [Other postprocedural status] Onset: 03-09-2025 Episodic Residual codes; unclassified (20 sources) H/O: miscarriage; Translations: [Personal history of other complications of , childbirth and the puerperium] 07-13-2023 Episodic Comment on above: x3 Residual codes; unclassified (16 sources) History of premature rupture of membranes; Translations: [Personal history of other complications of , childbirth and the puerperium] 04-22-2024 Episodic Comment on above: 2nd baby-32 weeks, d elivered at 36 weeks Residual codes; unclassified (13 sources) H/O: previous baby with growth restriction; Translations: [Personal history of other complications of , childbirth and the puerperium] 04-22-2024 Episodic Comment on above: 2nd baby Residual codes; unclassified (3 sources) History of previous intrauterine growth restricted ; Translations: [Personal history of other complications of , childbirth and the puerperium] 04-22-2024 Episodic Comment on above: 2nd baby Residual codes; unclassified (1 source) Personal history of other complications of , childbirth and the puerperium; Translations: [Personal history of other complications of , childbirth and the puerperium] Onset: 03-09-2025 Episodic Residual codes; unclassified (1 source) 30 weeks gestation of ; Translations: [30 weeks gestation of ] Onset: 03-09-2025 Episodic Residual codes; unclassified (1 source) 28 weeks gestation of ; Translations: [28 weeks gestation of ] Onset: 02-23-2025 Episodic Residual codes; unclassified (1 source) 26 weeks gestation of ; Translations: [26 weeks gestation of ] Onset: 02-09-2025 Episodic Residual codes; unclassified (1 source) 22 weeks gestation of ; Translations: [22 weeks gestation of ] Onset: 01-12-2025 Episodic Residual codes; unclassified (1 source) 21 weeks gestation of ; Translations: [21 weeks gestation of ] Onset: 01-06-2025 Episodic Residual codes; unclassified (1 source) 18 weeks gestation of ; Translations: [18 weeks gestation of ] Onset: 12-18-2024 Episodic Screening and history of mental health and substance abuse codes (1 source) Encounter for screening for depression; Translations: [Screening for depression] Onset: 01-27-2025 Episodic Spontaneous (18 sources) Incomplete miscarriage; Translations: [Incomplete spontaneous without complication] 07-16-2023 Episodic Thyroid disorders (20 sources) Hypothyroidism; Translations: [Hypothyroidism, unspecified] Onset: 12-17-2014 Chronic Comment on above: needs TSH qtrimester - currently increased Levothyroxine from 137 to 150mcg. rpt in one month from 04/14 visit. order in. pt aware. Umbilical cord complication (14 sources) Marginal insertion of umbilical cord 08-22-2021 Episodic Comment on above: needs growth scans q 4w-Eccentric cord insertion per growth US, 2 nl growth, 07/21 nl growth Urinary tract infections (5 sources) Acute lower urinary tract infection; Translations: [Acute cystitis] Onset: 10-09-2024 Episodic Past or Other Problems Problem Classification Problem Date Documented Da te Episodic/Chronic Diabetes or abnormal glucose tolerance 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 ; childbirth; or the puerperium (20 sources) Abnormal glucose level; Translations: [Abnormal glucose 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 ] Onset: 04-21-2024 Episodic Comment on above: failed 3 hr. diet controlled. Other aftercare (1 source) Other assisted (current) drug therapy; Translations: [Medication management] Onset: 01-18-2022 Episodic Other complications of (20 sources) Supervision of with other poor reproductive or obstetric history, unspecified trimester; Translations: [IUGR (intrauterine growth restriction) in prior , ] Onset: 04-21-2024 Episodic Other complications of (1 source) Supervision of elderly multigravida, first trimester; Translations: [Supervision of elderly multigravida, first trimester] Onset: 10-31-2024 Episodic Other complications of (1 source) Missed ; Translations: [Missed ] Onset: 06-09-2024 Episodic Other complications of (1 source) Supervision of elderly multigravida, unspecified trimester; Translations: [Supervision of elderly multigravida, unspecified trimester] Onset: 04-21-2024 Episodic Other female genital disorders (1 source) Recurrent loss; Translations: [Recurrent loss] Onset: 07-25-2024 Episodic Other female genital disorders (1 source) Personal history of pre-term labor; Translations: [Personal history of pre-term labor] Onset: 04-21-2024 Episodic Other and delivery including normal (20 sources) Supervision of other normal ; Translations: [] Onset: 04-28-2024 Episodic Comment on above: PRR MARGUERITE: 2 GIRL PC: Raffy Sarkar Spouse: Stephen declined genetic, ca rrier and NTD, NL anatomy; gbs negative Discussed genetic/ca rrier testing - undecided elects NIPT with gen bella NIPT low risk, femal e Other screening for suspected conditions (not mental disorders or infectious disease) (20 sources) Patient encounter status; Translations: [Encounter for screening for diabetes mellitus] Onset: 02-01-2016 02-01-2016 Episodic Residual codes; unclassified (1 source) 16 weeks gestation of ; Translations: [16 weeks gestation of ] Onset: 12-01-2024 Episodic Residual codes; unclassified (1 source) 11 weeks gestation of ; Translations: [11 weeks gestation of ] Onset: 10-27-2024 Episodic Residual codes; unclassified (1 source) 8 weeks gestation of ; Translations: [8 weeks gestation of ] Onset: 03-31-2024 Episodic Unclassified (20 sources) Marginal insertion of umbilical cord; Translations: [Marginal insertion of umbilical cord] NEGATED: Highlighted row has not occurred!Residual codes; unclassified (4 sources) Disease Episodic Results Test Name Value Interpretation Reference Range Facility Pop Singer Office Visit Reporton 03-17-2025 Pop Singer Office Visit Report [facility] [address] [place] [address], [address] [place] [address] OFFICE VISIT Date of Service: 03/17/25 MR#: [id number] Acct: [id number] Name: KARRI MARTIN Rep #: [id number] : 1990 Provider: EZEQUIEL Barker ams Age/Sex: 35/F Location: [facility] [place] Status: Signed Intake Vital Signs 03/09/25 10:44 03/17/25 13:09 03/17/25 13:10 Height 5 ft 4 in 5 ft 4 in 5 ft 4 in Weight: 176 lb 4 oz BMI 30.2 BP 104/53 L Intake Visit Reasons: 31wk Dec Movement, NST Per KW Rn Chronic Required: No Is patient in pain?: No Allergies nitrofurantoin Allergy (Mild, Verified 03/17/25 13:09) Hives Medications ???Medication ???Instructions ???Recorded ???Confirmed ???Type sertraline 25 mg tablet 25 mg PO DAILY anxiety #30 tabs 03/17/25 Rx levothyroxine 150 mcg tablet 150 mcg PO .COMPLEX hypothyorid 03/17/25 History multivit-min no.71-iron fum 28 cap PO 10/03/24 03/17/25 History mg-folate no.1 1 mg-dha 300 mg capsule (PNV-Merrifield) cephalexin 500 mg capsule 500 mg PO QDAY #30 caps 01/12/25 1 05/17/24 Rx Last Menstrual Period: 08/12/24 Zika: Zika virus screening: Negative : No PFSH PFSH Medical History AMA (advanced maternal age) multigravida 35+ H/O gestational diabetes in prior , currently Supervision of high-risk History of oligohydramnios in prior , currently Previous gestational diabetes mellitus, antepartum Spotting in early Hx of recurrent urinary tract infection delivery delivered History of pre-term labor History of premature rupture of membranes (PPROM) History of prior with IUGR Thyroid disorder Anemia affecting IUGR (intrauterine growth restriction) in prior , Surgical History H/O dilation and curettage H/O section Campbell teeth extracted S/P Family History Father Diabetes Grandfather Diabetes Paternal Maternal Mother Seizures Social History adopted: Yes (13yrs old) household members: spouse and children housing: house number of children: 3 current occupational status: employed 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[employer] current 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/hazards: No pets and animals: Yes ( taking care of litter box) pets and animals: cat(s) and dog(s) history of recent travel: No sexually active: Yes Smoking Status: Never smoker alcohol intake: current alcohol intake frequency: holidays/special occasions only details: Not while substance use type: does not use well-balanced diet: daily or most days caffeine: No eating out: rarely or never during the past year weight has: remained stable what type of physical activity do you participate in: walking and weight training frequency: 3-4 times per week duration: 15-30 minutes/day fatou/christianity: Quaker seatbelt use: always do you feel safe at home: Yes additional social history: : Stephen - Management History 7 Elective abortions Hx Para 3 Spontaneous abortions 3 Hx # Term Pregnancies Ectopic pregnancies Hx # Pregnancies Multiple births # of living children 3 Past Pregnancies Del. Date Name GA/Weeks Outcome Route Bth Weight Infant Gen Labor Lgth Anesthesia Del Locatn Provider FOB 04/03/17 Antonina 40 live - full term 7lbs 12oz Female 3 days epi dural [facility] Dr[facility] 01/10/19 Raffy 36 live - 5lbs 12oz Male 0 spinal [place] Whyte mma [facility] 11/19/20 5 spontaneous 04/18/22 Lieda 39 live - full term 7lbs 3oz Female spinal [facility] Marcanthony Stephen 07/16/23 5 spontaneous 04/21/24 11 spontaneous SM Delivery Date: 04/03/17 Last Updated by: Kim Olsen STAT c/s nuchal cord; distress Delivery Date: 01/10/19 Last Updated by: Kim Olsen PPROM, STAT C/S; IUGR; [place] Delivery Date: 08/22/21 Last Updated by: Karina Chávez RLTCS Delivery Date: 04/21/24 Last Updated by: Alice Padilla RN D C, measuring 9w1d HPI 31wk Dec Movement, NST Per KW Details: KARRI VILLAVICENCIO is a 35 year old who presents for routine OB visit. OB Visit MARGUERITE Calculator Estimated Delivery Date Method Current WG Current Estimate 05/16/25 LMP (Certain) 31w 3d Other Estimates 05/15/25 Ultrasound #1 31w 4d Expected Delivery Route/Plan plans repeat c/s Pren (more content not included)... Normal [facility] - Chemistry and C hemistry - challengeOrdered By: Margo San on 03-09-2025 Glucose Ql (U) Negative [facility] - UrinalysisOrder ed By: Margo San on 03-09-2025 Protein Ql (U) Negative [facility] Pop Singer Office Visit Reporton 03-09-2025 Pop Singer Office Visit Report [facility] [address], [address] [place] [address] OFFICE VISIT Date of Service: 03/09/25 MR#: [id number] Acct: [id number] Name: KARRI MARTIN Rep #: [id number] : 1990 Provider: EZEQUIEL Barker ams Age/Sex: 35/F Location: [facility] [place] Status: Signed Intake Vital Signs 01/12/25 14:29 02/23/25 09:40 03/09/25 10:44 03/09/25 10:44 Height 5 ft 4 in 5 ft 4 in 5 ft 4 in 5 ft 4 in Weight: 174 lb 1 oz BMI 29.8 BP 107/61 Intake Visit Reasons: 30wk2d ob Rn Chronic Required: No Is patient in pain?: No Allergies nitrofurantoin Allergy (Mild, Verified 03/09/25 10:42) Hives Medications ???Medication ???Instructions ???Recorded ???Confirmed ???Type sertraline 25 mg tablet 25 mg PO DAILY anxiety #30 tabs 03/09/25 Rx levothyroxine 150 mcg tablet 150 mcg PO .COMPLEX hypothyorid 03/09/25 History multivit-min no.71-iron fum 28 cap PO 10/03/24 03/09/25 History mg-folate no.1 1 mg-dha 300 mg capsule (PNV-Merrifield) cephalexin 500 mg capsule 500 mg PO QDAY #30 caps 01/12/25 1 05/09/24 Rx Last Menstrual Period: 08/12/24 Zika: Zika virus screening: Negative : No PFSH PFSH Medical History AMA (advanced maternal age) multigravida 35+ H/O gestational diabetes in prior , currently Supervision of high-risk History of oligohydramnios in prior , currently Previous gestational diabetes mellitus, antepartum Spotting in early Hx of recurrent urinary tract infection delivery delivered History of pre-term labor History of premature rupture of membranes (PPROM) History of prior with IUGR Thyroid disorder Anemia affecting IUGR (intrauterine growth restriction) in prior , Surgical History H/O dilation and curettage H/O section Campbell teeth extracted S/P Family History Father Diabetes Grandfather Diabetes Paternal Maternal Mother Seizures Social History adopted: Yes (13yrs old) household members: spouse and children housing: house number of children: 3 current occupational status: employed 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[employer] current 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/hazards: No pets and animals: Yes ( taking care of litter box) pets and animals: cat(s) and dog(s) history of recent travel: No sexually active: Yes Smoking Status: Never smoker alcohol intake: current alcohol intake frequency: holidays/special occasions only details: Not while substance use type: does not use well-balanced diet: daily or most days caffeine: No eating out: rarely or never during the past year weight has: remained stable what type of physical activity do you participate in: walking and weight training frequency: 3-4 times per week duration: 15-30 minutes/day fatou/christianity: Quaker seatbelt use: always do you feel safe at home: Yes additional social history: : Stephen - Management History 7 Elective abortions Hx Para 3 Spontaneous abortions 3 Hx # Term Pregnancies Ectopic pregnancies Hx # Pregnancies Multiple births # of living children 3 Past Pregnancies Del. Date Name GA/Weeks Outcome Route Bth Weight Infant Gen Labor Lgth Anesthesia Del Locatn Provider FOB 04/03/17 Antonina 40 live - full term 7lbs 12oz Female 3 days epi dural [facility] Dr[facility] 01/10/19 Raffy 36 live - 5lbs 12oz Male 0 spinal [place] mma [facility] 11/19/20 5 spontaneous 08/22/21 Lieda 39 live - full term 7lbs 3oz Female spinal [facility] Marcanthony [facility] 07/16/23 5 spontaneous 04/21/24 11 spontaneous SM Delivery Date: 04/03/17 Last Updated by: Kim Olsen STAT c/s nuchal cord; distress Delivery Date: 01/10/19 Last Updated by: Kim Olsen PPROM, STAT C/S; IUGR; [place] Delivery Date: 08/22/21 Last Updated by: Karina Chávez RLTCS Delivery Date: 04/21/24 Last Updated by: Alice Padilla, YIN D C, measuring 9w1d HPI 30wk2d ob Details: KARRI VILLAVICENCIO is a 35 year old who presents for routine OB visit. OB Visit MARGUERITE Calculator Estimated Delivery Date Method Current WG Current Estimate 05/16/25 LMP (Certain) 30w 2d Other Estimates 05/15/25 Ultrasound #1 30w 3d Expected Delivery Route/Plan plans repeat c/s Specific Issue/Plans (more content not included)... Normal [facility] - Chemistry and C hemistry - challengeOrdered By: Margo San on 02-23-2025 Glucose Ql (U) Negative [facility] - UrinalysisOrder ed By: Margo San on 02-23-2025 Protein Ql (U) Negative [facility] Pop Singer Office Visit Reporton 02-23-2025 Pop Singer Office Visit Report [facility] [place] [address], [address] [place] [address] OFFICE VISIT Date of Service: 02/23/25 MR#: [id number] Acct: [id number] Name: KARRI MARTIN Rep #: [id number] : 1990 Provider: EZEQUIEL Barker ams Age/Sex: 35/F Location: [facility] [place] Status: Signed Intake Vital Signs 12/01/24 10:40 01/12/25 14:29 02/09/25 09:37 02/23/25 09:40 Height 5 ft 4 in 5 ft 4 in 5 ft 4 in 5 ft 4 in Weight: 170 lb 2 oz BMI 29.2 BP 106/71 Intake Visit Reasons: 28wk2d ob Chief Complaint: 28wk OB Rn Chronic Required: No Is patient in pain?: No Allergies nitrofurantoin Allergy (Mild, Verified 02/23/25 09:38) Hives Medications ???Medication ???Instructions ???Recorded ???Confirmed ???Type sertraline 25 mg tablet 25 mg PO DAILY anxiety #30 tabs 02/23/25 Rx levothyroxine 150 mcg tablet 150 mcg PO .COMPLEX hypothyorid 02/23/25 History multivit-min no.71-iron fum 28 cap PO 10/03/24 02/23/25 History mg-folate no.1 1 mg-dha 300 mg capsule (PNV-Merrifield) cephalexin 500 mg capsule 500 mg PO QDAY #30 caps 01/12/25 1 Rx Last Menstrual Period: 08/12/24 : No Have you fallen in the past year?: No PFSH PFSH Medical History AMA (advanced maternal age) multigravida 35+ H/O gestational diabetes in prior , currently Supervision of high-risk History of oligohydramnios in prior , currently Previous gestational diabetes mellitus, antepartum Spotting in early Hx of recurrent urinary tract infection delivery delivered History of pre-term labor History of premature rupture of membranes (PPROM) History of prior with IUGR Thyroid disorder Anemia affecting IUGR (intrauterine growth restriction) in prior , Surgical History H/O dilation and curettage H/O section Campbell teeth extracted S/P Family History Father Diabetes Grandfather Diabetes Paternal Maternal Mother Seizures Social History adopted: Yes (13yrs old) household members: spouse and children housing: house number of children: 3 current occupational status: employed 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[employer] current 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/hazards: No pets and animals: Yes ( taking care of litter box) pets and animals: cat(s) and dog(s) history of recent travel: No sexually active: Yes Smoking Status: Never smoker alcohol intake: current alcohol intake frequency: holidays/special occasions only details: Not while substance use type: does not use well-balanced diet: daily or most days caffeine: No eating out: rarely or never during the past year weight has: remained stable what type of physical activity do you participate in: walking and weight training frequency: 3-4 times per week duration: 15-30 minutes/day fatou/christianity: Quaker seatbelt use: always do you feel safe at home: Yes additional social history: : Stephen - Management History 7 Elective abortions Hx Para 3 Spontaneous abortions 3 Hx # Term Pregnancies Ectopic pregnancies Hx # Pregnancies Multiple births # of living children 3 Past Pregnancies Del. Date Name GA/Weeks Outcome Route Bth Weight Infant Gen Labor Lgth Anesthesia Del Locatn Provider FOB 04/03/17 Antonina 40 live - full term 7lbs 12oz Female 3 days epi dural [facility] Dr[facility] 01/10/19 Raffy 36 live - 5lbs 12oz Male 0 spinal [place] Whyte mma [facility] 11/19/20 5 spontaneous 08/22/21 [place] 39 live - full term 7lbs 3oz Female spinal [facility] Marcanthony Stephen 07/16/23 5 spontaneous 04/21/24 11 spontaneous SM Delivery Date: 04/03/17 Last Updated by: Kim Olsen STAT c/s nuchal cord; distress Delivery Date: 01/10/19 Last Updated by: Kim Olsen PPROM, STAT C/S; IUGR; Olig[place] Delivery Date: 08/22/21 Last Updated by: Karina Chávez RLS Delivery Date: 04/21/24 Last Updated by: Alice Padilla, YIN D C, measuring 9w1d HPI 28wk2d ob Details: KARRI SAMI VILLAVICENCIO is a 35 year old who presents for routine OB visit. OB Visit MARGUERITE Calculator Estimated Delivery Date Method Current WG Current Estimate 05/16/25 LMP (Certain) 28w 2d Other Estimates 05/15/25 Ultrasound #1 28w 3d Expected Delivery Route/Plan plans repeat c/s Specific Issue (more content not included)... Normal [facility] Bacteria Ur Culton 5 Bacteria identified Cx Nom (U) ORGANISM ID: 1 10,000 -<50,000 CFU/ml Normal urogenital alondra Normal [facility] Comment on above: Performed By: #### 6 30-4 ####[facility] MAIN LABCLIA [id number] [place] [address] [place] CNOVon 02-16-2025 CNOV Office Visit (FAMPWS ) ----- KARRI MARTIN ([id number]) 1990 F Date Time Provider Department 02/16/25 11:00 AM ELEANOR CLARK FAMPWS During your visit today, we recorded the following information about you: Temperature Pulse Blood pressure 98.6 degrees 74/minute 118/60 Eleanor Clark APRN.CNP 02/16/2025 11:28 AM Signed This is a 35 year old female who presents today with: Patient presents with: Acute Visit: Cough, head and chest congestion, sinus pressure, left ear pain x 3-4 weeks. HISTORY OF PRESENT ILLNESS: Karri Villavicencio is a 35 year old female. Patient presents with: Acute Visit: Cough, head and chest congestion, sinus pressure, left ear pain x 3-4 weeks. The patient is a 35?year?old female presenting for evaluation of persistent sore throat, sinus congestion, and cough. Karri is a 35-year-old female, currently , presenting with ear pain, sinus congestion, and cough. Ear Pain, Sinus Congestion, and Cough: - Symptoms began on 01/[address] Maurice. - Persistent sore throat, worsening over time. - Tried natural and OTC remedies without relief; currently taking Mucinex for about a week. - Reports headaches, primarily occipital, attributed to sleeping on the couch. - Productive cough with occasional emesis during coughing fits. - Denies lumps, bumps, or swelling in the neck. - Reports congestion-related dyspnea. - Denies chest pain, wheezing, or palpitations. - Denies blurred or double vision. UTI: - Currently on prophylactic antibiotics for UTI prevention. - Reports dysuria and urinary frequency with minimal output. - Experiences urinary incontinence during coughing episodes. - Scheduled to see OB on Sunday for UTI evaluation. PAST MEDICAL HISTORY: PAST MEDICAL HISTORY Diagnosis Date Acquired hypothyroidism 12/17/2014 Hoshimoto's Anxiety 04/20/2014 Well adult exam 04/20/2014 Last done: 01/02/2019 PAST SURGICAL HISTORY Procedure Laterality Date SECTION HX N/A 2016 and 2021 DANDC, DIAG AND/OR THERAPEUTIC N/A 04/21/2024 PAST SURGICAL HISTORY OF 2005 laser surgery on bilater feet to remove warts ALLERGIES Macrobid [Nitrofurantoin Monohyd/M-Cryst] MEDICATIONS Current Outpatient Medications Medication Sig ferrous sulfate 325 mg (65 mg iron) tablet Take 325 mg by mouth once daily. cephALEXin (KEFLEX) 500 mg capsule Take 500 mg by mouth once daily. vit/iron fum/folic ac ( 1 + 1 ORAL) Take 1 tablet by mouth once daily. sertraline (ZOLOFT) 25 mg tablet Take 1 tablet by mouth once daily. levothyroxine (LEVOXYL) 150 mcg tablet Take 1 tablet by mouth once daily. Jadon-Sat and two on Sunday. Take on empty stomach. For Thyroid. No current facility-administered medications for this visit. FAMILY HISTORY Adopted: Yes Problem Relation Age of Onset Seizures Mother epiletic Diabetes Father Hypertension Father No Known Problems Sister No Known Problems Sister No Known Problems Brother No Known Problems Brother No Known Problems Brother No Known Problems Brother Diabetes Paternal Grandmother Hypertension Paternal Grandmother Diabetes Paternal Grandfather Coronary Artery Disease Paternal Grandfather over 50 Hypertension Paternal Grandfather No Known Problems Daughter No Known Problems Son Thyroid Paternal Uncle SOCIAL HISTORY[1] REVIEW OF SYSTEMS Constitutional: (+) fatigue Head: (+) occipital headache Eyes: (-) blurred vision Ears/Nose/Mouth/Throat: (+) sore throat, (+) nasal congestion Cardiovascular: (+) chest tightness, (-) palpitations Respiratory: (+) cough, (+) sputum production, (+) shortness of breath, (-) wheezing Gastrointestinal: (+) vomiting, (-) nausea Genitourinary: (+) dysuria, (+) urinary frequency, (+) stress urinary incontinence EXAM: BP 118/60 (BP Site: Right Arm, BP Position: Sitting) Pulse 74 Temp 37 ?C (98.6 ?F) (Right Tympanic) LMP 05/24/2023 (Exact Date) SpO2 99% PHYSICAL EXAM: GENERAL: NAD, alert and oriented SKIN: unremarkable, no rash or skin lesions. HEAD: normocephalic EYES: conjunctiva clear EARS: external ears normal, canals clear, TM's slightly bulging caitlin. NOSE/SINUSES: Nares boggy and swollen- red. Septum midline. Maxillary tenderness caitlin. OROPHARYNX: lips, mucosa, and tongue normal, good dentition. No oral lesions noted. NECK: Supple, no lymphadenopathy, normal thyroid, no carotid bruits. LUNGS: Clear to auscultation bilaterally, no wheezes/rhonchi/rales. HEART: Regular rate and rhythm, no murmurs. No ectopy. EXTREMITIES: Normal, No deformities, No skin discoloration, No edema. NEURO: Awake, alert and oriented x3, normal gait, no involuntary motions LABS: ASSESSMENT/PLAN: 1. Acute non-recurrent maxillary sinusitis (J01.00) - Persistent symptoms since 01/27, worsening despite natural and OTC r (more content not included)... Normal [facility] Absolute lymphocyte countOrd ered By: Smiley Bhatiacam on 02-09-2025 Lymphocytes Auto (Unsp spec) [#/Vol] 1.37 10*3/uL 0.83-4.51 [facility] Absolute neutrophil countOrd ered By: Smiley Bhatiacam on 02-09-2025 Neutrophils (Bld) [#/Vol] 6.1 10*3/uL 2.0-7.7 [facility] Automated lymphocyte count a s percentage of total leukocytesOrdered By: Smiley Bhatiacam on 02-09-2025 Lymphocytes/100 WBC Auto (Unsp spec) 17.1 % Low 19-41 [facility] Basophil percentageOrdered B y: Smiley Mercy on 02-09-2025 Basophils/100 WBC (Bld) 0.2 % 0-1 [facility] CBC W/Diff, Automatedon 10-0 Absolute Lymph 1.37 X10 3/uL Normal 0.83-4.51 [facility] Comment on above: Performed By: #### L [id number], [id number] #### [facility] [address] [facility] [facility] [place], [address] Absolute Neut 6.1 X10 3/uL Normal 2.0-7.7 [facility] Comment on above: Performed By: #### L [id number], [id number] #### [facility] [address] [place], [address] Basophils/100 WBC (Bld) 0.2 % Normal 0-1 [facility] Comment on above: Performed By: #### L [id number], [id number] #### [facility] [address] [place], [address] Eosinophils/100 WBC (Bld) 1.5 % Normal 0-5 [facility] Comment on above: Performed By: #### L [id number], [id number] #### [facility] [address] [place], [address] Erythrocyte distribution width (RBC) [Ratio] 12.7 % Normal 11.6-14.6 [facility] Comment on above: Performed By: #### L [id number], [id number] #### [facility] [address] [place], [address] Hematocrit (Bld) [Volume fraction] 31.2 % Low 37-47 [facility] Comment on above: Performed By: #### L [id number], [id number] #### [facility] [address] [place], [address] Hemoglobin (Bld) [Mass/Vol] 10.3 g/dL Low 12.0-15.0 [facility] Comment on above: Performed By: #### L [id number], [id number] #### [facility] [address] [place], [address] IG% 0.500 Normal 0.0-0.9 [facility] Comment on above: Result Comment: IG% - Immature Granulocytes (promyelocytes, myelocytes and metamyelocytes) > 1% indicates that a LEFT SHIFT is Present. Performed By: #### L [id number], [id number] #### [facility] [address] [place], [address] Lymphocytes/100 WBC (Bld) 17.1 % Low 19-41 [facility] Comment on above: Performed By: #### L [id number], [id number] #### [facility] [address] [place], [address] MCH (RBC) [Entitic mass] 31.0 pg Normal 27.0-32.0 [facility] Comment on above: Performed By: #### L [id number], [id number] #### [facility] [address] [place], [address] MCHC (RBC) [Mass/Vol] 33.0 g/dL Normal 32-36 [facility] Comment on above: Performed By: #### L [id number], [id number] #### [facility] [address] [place], [address] MCV (RBC) [Entitic vol] 94.0 fL Normal 81-99 [facility] Comment on above: Performed By: #### L [id number], [id number] #### [facility] [address] [place], [address] Monocytes/100 WBC (Bld) 5.0 % Normal 0-10 [facility] Comment on above: Performed By: #### L [id number], [id number] #### [facility] [address] [place], [address] Neutrophils/100 WBC (Bld) 75.7 % High 47-70 [facility] Comment on above: Performed By: #### L [id number], [id number] #### [facility] [address] [place], [address] Nucleated RBC (Bld) [#/Vol] 0 10*3/uL Normal 0-5 [facility] Comment on above: Performed By: #### L [id number], [id number] #### [facility] [address] [place], [address] Platelet mean volume (Bld) [Entitic vol] 10.3 fL Normal 6.2-12.0 [facility] Comment on above: Performed By: #### L [id number], [id number] #### [facility] [address] [place], [address] Platelets (Bld) [#/Vol] 212 10*3/uL Normal 150-450 [facility] Comment on above: Performed By: #### L [id number], [id number] #### [facility] [address] [place], [address] RBC (Bld) [#/Vol] 3.32 10*6/uL Low 4.2-5.4 [facility] Comment on above: Performed By: #### L [id number], [id number] #### [facility] [address] [place], [address] RDW SD 43.5 fl Normal 35.1-43.9 [facility] Comment on above: Performed By: #### L [id number], [id number] #### [facility] [address] [place], [address] WBC (Bld) [#/Vol] 8.0 10*3/uL Normal 4.4-11.0 [facility] Comment on above: Performed By: #### L [id number], [id number] #### [facility] [address] [place], [address] Eosinophil percentageOrdered By: Smiley Madrid on 02-09-2025 Eosinophils/100 WBC (Bld) 1.5 % 0-5 [facility] Erythrocyte distribution wid th ratioOrdered By: Smiley Madrid on 02-09-2025 Erythrocyte distribution width (RBC) [Ratio] 12.7 % 11.6-14.6 [facility] Erythrocyte distribution wid th standard deviationOrdered By: Smiley Madrid on 02-09-2025 Erythrocyte distribution width (RBC) [Ratio] 43.5 fl 35.1-43.9 [facility] Glucose Challenge Gest 1H 50 ignacio 02-09-2025 GLU GEST 50g 1H 109 mg/dL Normal 70-140 [facility] Comment on above: Performed By: #### L [id number], [id number] #### [facility] [address] [place], [place], [address] Glucose measurement at 2 garrett rs post-dose gestational glucose tolerance testOrdered By: Smiley Madrid on 02-09-2025 Glucose [Mass/Vol] 109 mg/dL 70-140 [facility] HIVon 02-09-2025 HIV Non-Reactive Normal Nonreactive [facility] Comment on above: Result Comment: Non- Reactive Reactive Repeatedly reactive samples must be confirmed according to CDC recommended confirmatory algorithms. The subresults for either HIVAG or AHIV can be used as an aid in the selection of the confirmation algorithm for reactive samples. Send out specimens with Reactive results to [facility] for confirmation. Order the HIV antibody detection and differentiation: lc#[id number] Performed By: #### L [id number], [id number] #### [facility] [address] [facility] [address] [place], [place], [address] Hematocrit Auto (Bld) [Volum e fraction]Ordered By: Smiley Madrid on 02-09-2025 Hematocrit (Bld) [Volume fraction] 31.2 % Low 37-47 [facility] Hemoglobin measurementOrdere d By: Smiley Madrid on 02-09-2025 Hemoglobin (Bld) [Mass/Vol] 10.3 g/dL Low 12.0-15.0 [facility] Immature granulocytes/100 WB C Auto (Bld)Ordered By: Smiley Madrid on 02-09-2025 Immature granulocytes/100 WBC (Bld) 0.500 % 0.0-0.9 [facility] Comment on above: IG% - Immature Granu locytes (promyelocytes, myelocytes and metamyelocytes) > 1% indicates that a LEFT SHIFT is Present. Laboratory - Chemistry and C hemistry - challengeOrdered By: Margo San on 02-09-2025 Glucose Ql (U) Negative [facility] - UrinalysisOrder ed By: Margo San on 02-09-2025 Protein Ql (U) Negative [facility] MCV (mean corpuscular volume ) determinationOrdered By: Smiley Madrid on 02-09-2025 MCV (RBC) [Entitic vol] 94.0 fL 81-99 [facility] Mean corpuscular hemoglobin (MCH) determinationOrdered By: Smiley Madrid on 02-09-2025 MCH (RBC) [Entitic mass] 31.0 pg 27.0-32.0 [facility] Mean corpuscular hemoglobin concentration (MCHC) determinationOrdered By: Smiley Madrid on 02-09-2025 MCHC (RBC) [Mass/Vol] 33.0 g/dL 32-36 [facility] Mean platelet volume determi nationOrdered By: Smiley Madrid on 02-09-2025 Platelet mean volume (Bld) [Entitic vol] 10.3 fL 6.2-12.0 [facility] Monocyte percentageOrdered B y: Smiley Madrid on 02-09-2025 Monocytes/100 WBC (Bld) 5.0 % 0-10 [facility] Neutrophil percentageOrdered By: Smiley Madrid on 02-09-2025 Neutrophils/100 WBC (Bld) 75.7 % High 47-70 [facility] No Panel InformationOrdered By: Smiley Madrid on 02-09-2025 HIV (1&2) Antibody Non-Reactive Nonreactive [facility] Comment on above: Non-ReactiveReactive Repeatedly reactive samples must be confirmed according to CDC recommended confirmatory algorithms. The subresults for either HIVAG or AHIV can be used as an aid in the selection of the confirmation algorithm for reactive samples.Send out specimens with Reactive results to [facility] for confirmation.Order the HIV antibody detection and differentiation: #[id number] Nucleated red blood cell per centageOrdered By: Smiley Mardid on 02-09-2025 Nucleated RBC/100 WBC (Bld) [Ratio] 0 % 0-5 [facility] Pop Singer Office Visit Reporton 02-09-2025 Pop Singer Office Visit Report [facility] [address], [address] [place] [address] OFFICE VISIT Date of Service: 02/09/25 MR#: [id number] Acct: [id number] Name: KARRI MARTIN Rep #: [id number] : 1990 Provider: EZEQUIEL Barker ams Age/Sex: 35/F Location: [facility] Status: Signed Intake Vital Signs 12/01/24 10:40 01/12/25 14:29 02/09/25 09:37 Height 5 ft 4 in 5 ft 4 in 5 ft 4 in Weight: 169 lb BMI 29.0 BP 111/71 Intake Visit Reasons: 26wk2d ob/glucose Chief Complaint: 26wk OB Rn Chronic Required: No Is patient in pain?: No Allergies nitrofurantoin Allergy (Mild, Verified 02/09/25 09:33) Hives Medications ???Medication ???Instructions ???Recorded ???Confirmed ???Type sertraline 25 mg tablet 25 mg PO DAILY anxiety #30 tabs 02/09/25 Rx levothyroxine 150 mcg tablet 150 mcg PO .COMPLEX hypothyorid 02/09/25 History multivit-min no.71-iron fum 28 cap PO 10/03/24 02/09/25 History mg-folate no.1 1 mg-dha 300 mg capsule (PNV-Merrifield) cephalexin 500 mg capsule 500 mg PO QDAY #30 caps 01/12/25 1 Rx Last Menstrual Period: 08/12/24 : No PFSH PFSH Medical History AMA (advanced maternal age) multigravida 35+ H/O gestational diabetes in prior , currently Supervision of high-risk History of oligohydramnios in prior , currently Previous gestational diabetes mellitus, antepartum Spotting in early Hx of recurrent urinary tract infection delivery delivered History of pre-term labor History of premature rupture of membranes (PPROM) History of prior with IUGR Thyroid disorder Anemia affecting IUGR (intrauterine growth restriction) in prior , Surgical History H/O dilation and curettage H/O section Campbell teeth extracted S/P Family History Father Diabetes Grandfather Diabetes Paternal Maternal Mother Seizures Social History adopted: Yes (11yrs old) household members: spouse and children housing: house number of children: 3 current occupational status: employed 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[employer] current 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/hazards: No pets and animals: Yes ( taking care of litter box) pets and animals: cat(s) and dog(s) history of recent travel: No sexually active: Yes Smoking Status: Never smoker alcohol intake: current alcohol intake frequency: holidays/special occasions only details: Not while substance use type: does not use well-balanced diet: daily or most days caffeine: No eating out: rarely or never during the past year weight has: remained stable what type of physical activity do you participate in: walking and weight training frequency: 3-4 times per week duration: 15-30 minutes/day fatou/christianity: Quaker seatbelt use: always do you feel safe at home: Yes additional social history: : Stephen - Management History 7 Elective abortions Hx Para 3 Spontaneous abortions 3 Hx # Term Pregnancies Ectopic pregnancies Hx # Pregnancies Multiple births # of living children 3 Past Pregnancies Del. Date Name GA/Weeks Outcome Route Bth Weight Infant Gen Labor Lgth Anesthesia Del Locatn Provider FOB 04/03/17 Antonina 40 live - full term 7lbs 12oz Female 3 days epi dural [facility] Dr. Whitmore [facility] 01/10/19 Raffy 36 live - 5lbs 12oz Male 0 spinal [place] Whyte huber [facility] 11/19/20 5 spontaneous 08/22/21 Lied[place] 39 live - full term 7lbs 3oz Female spinal [facility] 07/16/23 5 spontaneous 04/21/24 11 spontaneous SM Delivery Date: 04/03/17 Last Updated by: Kim Olsen STAT c/s nuchal cord; distress Delivery Date: 01/10/19 Last Updated by: Kim Olsen PPROM, STAT C/S; IUGR; Oligo Delivery Date: 08/22/21 Last Updated by: Karina Chávez [facility] Delivery Date: 04/21/24 Last Updated by: YIN Tabares C, measuring 9w1d HPI 26wk2d ob/glucose Details: KARRI VILLAVICENCIO is a 35 year old who presents for routine OB visit. OB Visit MARGUERITE Calculator Estimated Delivery Date Method Current WG Current Estimate 05/16/25 LMP (Certain) 26w 2d Other Estimates 05/15/25 Ultrasound #1 26w 3d Expected Delivery Route/Plan plans repeat c/s Specific Issue/Plans Covid status: [] Flu vaccine: [] Tdap vacci (more content not included)... Normal [facility] Platelet countOrdered By: Castro Madrid on 02-09-2025 Platelets (Bld) [#/Vol] 212 10*3/uL 150-450 [facility] RBC Auto (Bld) [#/Vol]Ordere d By: Smiley Madrid on 02-09-2025 RBC (Bld) [#/Vol] 3.32 10*6/uL Low 4.2-5.4 [facility] Syphilis Antibodieson 2024 Syphilis Abs Non-Reactive Normal Nonreactive [facility] Comment on above: Performed By: #### L [id number], [id number] #### [facility] [address] [place], [place] [address], [address] White blood cell (WBC) count Ordered By: Smiley Madrid on 02-09-2025 WBC (Bld) [#/Vol] 8.0 10*3/uL 4.4-11.0 [facility] CNOVon 01-27-2025 CNOV Office Visit (FAMPWS ) ----- KARRI MARTIN ([id number]) 1990 F Date Time Provider Department 01/27/25 1:40 PM CAIN PRETTYPWS During your visit today, we recorded the following information about you: Pulse Respiration Blood pressure Weight 78/minute 16/minute 118/62 75.6 kg Height 1.632 m Cain Pretty MD 01/27/2025 2:30 PM Signed Chief Complaint Patient presents with: Well Adult HPI Karri Villavicencio is a 34 year old female who presents here today for a Physical. Patient with Hx of Anxiety, Hypothyroidism as well as those reviewed and addressed below in ROS. Currently 24 weeks , following with Dr. Madrid. Had DANDC 04/2024. Wellness Form brought in today to be completed. Karri Villavicencio is a 34-year-old female, , currently . Karri is currently on sertraline for anxiety and reports doing well on the medication. She had a DANDC in April. She denies any new health issues in her blood relatives. Karri reports a sore throat that started today, but denies any drainage, lumps, or swelling in her neck. She also reports snoring that wakes her up at night. She denies any recent fevers, frequent headaches, sudden changes in hearing or vision, wheezing, or dyspnea. She has a cough in the mornings, but denies producing colored mucus or blood. She denies any chest pain, palpitations, or swelling in her legs, but notes swelling in her feet and ankles. She occasionally experiences heartburn, but denies any unexpected nausea, vomiting, or diarrhea. She is on a maintenance dosage of antibiotics for the rest of her to prevent UTIs and denies any discomfort with urination. She denies any unusual muscle or joint aches, skin lesions, rashes, or sores, easy bruising or bleeding, changes in tolerance to heat or cold, increased thirst, syncope, seizures, or tremors. Karri reports "really bad" lower back pain associated with her sciatic nerve, causing pain in her lower back and left buttock, and occasionally causing her leg to give out. She notes that this pain only occurs during . She finds relief by laying on her right side, stretching, and walking, although walking initially exacerbates the pain. Karri declines a flu shot today, stating that she gets "so sick" after them. She has been for 8 years and does not intend to separate. She reports that she was fasting before her blood work. She has been struggling with protein intake and has cut back on sugary foods during this . She reports cravings for pizza, which she eats once a week. Past medical history, appointments, medications, allergies reviewed. Previous Medical History PAST MEDICAL HISTORY Diagnosis Date Acquired hypothyroidism 12/17/2014 Hoshimoto's Anxiety 04/20/2014 Well adult exam 04/20/2014 Last done: 01/02/2019 Previous Surgical History PAST SURGICAL HISTORY Procedure Laterality Date SECTION HX N/A 2016 and 2021 DANDC, DIAG AND/OR THERAPEUTIC N/A 04/21/2024 PAST SURGICAL HISTORY OF 2004 laser surgery on bilater feet to remove warts Family History FAMILY HISTORY Adopted: Yes Problem Relation Age of Onset Seizures Mother epiletic Diabetes Father Hypertension Father No Known Problems Sister No Known Problems Sister No Known Problems Brother No Known Problems Brother No Known Problems Brother No Known Problems Brother Diabetes Paternal Grandmother Hypertension Paternal Grandmother Diabetes Paternal Grandfather Coronary Artery Disease Paternal Grandfather over 50 Hypertension Paternal Grandfather No Known Problems Daughter No Known Problems Son Thyroid Paternal Uncle Patient Allergies ALLERGIES Allergen Reactions Macrobid [Nitrofura* Other: See Comments Possible urticaria. (Started shortly after finishing antibiotic) Current Medications Current Outpatient Medications on File Prior to Visit Medication Sig vit/iron fum/folic ac ( 1 + 1 ORAL) Take 1 tablet by mouth once daily. sertraline (ZOLOFT) 25 mg tablet Take 1 tablet by mouth once daily. levothyroxine (LEVOXYL) 150 mcg tablet Take 1 tablet by mouth once daily. Jadon-Sat and two on Sunday. Take on empty stomach. For Thyroid. No current facility-administered medications on file prior to visit. Social History SOCIAL HISTORY[1] Review of Symptoms REVIEW OF SYSTEMS GENERAL: No weight loss, malaise or fevers HEENT: Negative for frequent or significant headaches, No changes in hearing or vision, no nose bleeds or other nasal problems. Hs a slight sore throat today. NECK: Negative for lumps, goiter, pain and significant neck swelling RESPIRATORY: Negative for cough with colored mucus, hemoptysis, wheezing, COPD, dyspnea or shortness of breath CARDIOVASCULAR: Negative for chest pain, leg (more content not included)... Normal [facility] - Chemistry and C hemistry - challengeOrdered By: Smiley Madrid on 01-12-2025 Glucose Ql (U) Negative [facility] - UrinalysisOrder ed By: Smiley Madrid on 01-12-2025 Protein Ql (U) Negative [facility] Pop Singer Office Visit Reporton 01-12-2025 Pop [facility] Office Visit Report [facility] [address], [address] [place] [address] OFFICE VISIT Date of Service: 01/12/25 MR#: [id number] Acct: [id number] Name: KARRI MARTIN Rep #: [id number] : 1990 Provider: Dr. Smiley herrmann MD Age/Sex: 34/F Location: [facility] [place] Status: Signed Intake Vital Signs 12/01/24 10:40 01/06/25 16:00 01/12/25 14:29 Height 5 ft 4 in 5 ft 4 in 5 ft 4 in Weight: 166 lb 2 oz BMI 28.5 BP 107/71 Intake Visit Reasons: 21 wk ob Rn Chronic Required: No Is patient in pain?: No Allergies nitrofurantoin Allergy (Mild, Verified 01/12/25 14:30) Hives Medications ???Medication ???Instructions ???Recorded ???Confirmed ???Type sertraline 25 mg tablet 25 mg PO DAILY anxiety #30 tabs 01/12/25 Rx levothyroxine 150 mcg tablet 150 mcg PO .COMPLEX hypothyorid 01/12/25 History multivit-min no.71-iron fum 28 cap PO 10/03/24 01/12/25 History mg-folate no.1 1 mg-dha 300 mg capsule (PNV-Merrifield) cephalexin 500 mg capsule 500 mg PO TID 7 days #21 caps 07/2901/12/25 Rx cephalexin 500 mg capsule 500 mg PO QDAY #30 caps 01/12/25 0 01/12/25 Rx Last Menstrual Period: 08/12/24 Zika: Zika virus screening: Negative : No PFSH PFSH Medical History AMA (advanced maternal age) multigravida 35+ H/O gestational diabetes in prior , currently Supervision of high-risk History of oligohydramnios in prior , currently Previous gestational diabetes mellitus, antepartum Spotting in early Hx of recurrent urinary tract infection delivery delivered History of pre-term labor History of premature rupture of membranes (PPROM) History of prior with IUGR Thyroid disorder Anemia affecting IUGR (intrauterine growth restriction) in prior , Surgical History H/O dilation and curettage H/O section Campbell teeth extracted S/P Family History Father Diabetes Grandfather Diabetes Paternal Maternal Mother Seizures Social History adopted: Yes (13yrs old) household members: spouse and children housing: house number of children: 3 current occupational status: employed 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[employer] current 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/hazards: No pets and animals: Yes ( taking care of litter box) pets and animals: cat(s) and dog(s) history of recent travel: No sexually active: Yes Smoking Status: Never smoker alcohol intake: current alcohol intake frequency: holidays/special occasions only details: Not while substance use type: does not use well-balanced diet: daily or most days caffeine: No eating out: rarely or never during the past year weight has: remained stable what type of physical activity do you participate in: walking and weight training frequency: 3-4 times per week duration: 15-30 minutes/day fatou/christianity: Quaker seatbelt use: always do you feel safe at home: Yes additional social history: : Stephen - Management History 7 Elective abortions Hx Para 3 Spontaneous abortions 3 Hx # Term Pregnancies Ectopic pregnancies Hx # Pregnancies Multiple births # of living children 3 Past Pregnancies Del. Date Name GA/Weeks Outcome Route Bth Weight Gen Labor Lgth Anesthesia Del Locatn Provider FOB 04/03/17 Antonina 40 live - full term 7lbs 12oz Female 3 days epi dural [facility] Dr[facility] Whit[facility] 01/10/19 Raffy 36 live - 5lbs 12oz Male 0 spinal [place] [facility] 11/19/20 5 spontaneous 08/22/21 Lieda 39 live - full term 7lbs 3oz Female spinal [facility] 07/16/23 5 spontaneous 12/16/24 11 spontaneous SM Delivery Date: 04/03/17 Last Updated by: Kim Olsen STAT c/s nuchal cord; distress Delivery Date: 01/10/19 Last Updated by: Kim Olsen PPROM, STAT C/S; IUGR; [place] Delivery Date: 08/22/21 Last Updated by: Karina Chávez RLS Delivery Date: 04/21/24 Last Updated by: Alice Padilla RN D C, measuring 9w1d HPI 21 wk ob Details: KARRI VILLAVICENCIO is a 34 year old who presents for routine OB visit. OB Visit MARGUERITE Calculator Estimated Delivery Date Method Current WG Current Estimate 05/16/25 LMP (Certain) 22w 2d Other Estimates 05/15/25 Ultrasound #1 22w 3d Expected Delivery Route/Plan (more content not included)... Normal [facility] CBC W Auto Differential pane l (Bld)on 01-10-2025 Basophils (Bld) [#/Vol] 10*3/uL Normal <0.11 A [facility] Comment on above: Order Comment: Speci men Type: BLOOD SPECIMEN Ordering Facility: [facility] Address: [address] [place] [address] Performed By: #### 5 7021-8 #### [facility] CLIA [id number] [address] [place] Basophils/100 WBC (Bld) 0.1 % Normal A [facility] Comment on above: Order Comment: Speci men Type: BLOOD SPECIMEN Ordering Facility: [facility] Address: [address] [place] [address] Performed By: #### 5 7021-8 #### [facility] CLIA [id number] [address] [place] Differential cell count method Nom (Bld) Auto Normal [facility] Comment on above: Order Comment: Celestei men Type: BLOOD SPECIMEN Ordering Facility: [facility] Address: [address] [place] [address] Performed By: #### 5 7021-8 #### [facility] CLIA [id number] [address] [place] [address] [place] Eosinophils (Bld) [#/Vol] 0.09 10*3/uL Normal <0.46 [facility] Comment on above: Order Comment: Speci men Type: BLOOD SPECIMEN Ordering Facility: [facility] Address: [address] [place] [address] Performed By: #### 5 7021-8 #### [facility] CLIA [id number] [address] [place] [address] [place] Eosinophils/100 WBC (Bld) 1.2 % Normal [facility] Comment on above: Order Comment: Speci men Type: BLOOD SPECIMEN Ordering Facility: [facility] Address: [address] [place] [address] Performed By: #### 5 7021-8 #### [facility] CLIA [id number] [address] [place] Erythrocyte distribution width (RBC) [Ratio] 13.5 % Normal 11.5-15.0 [facility] Comment on above: Order Comment: Speci men Type: BLOOD SPECIMEN Ordering Facility: [facility] Address: [address] [place] [address] Performed By: #### 5 7021-8 #### [facility] CLIA [id number] [address] [place] [address] [place] Hematocrit (Bld) [Volume fraction] 33.5 % Low 36.0-46.0 [facility] Comment on above: Order Comment: Speci men Type: BLOOD SPECIMEN Ordering Facility: [facility] Address: [address] [place] [address] Performed By: #### 5 7021-8 #### [facility] CLIA [id number] [address] [place] [id number] [place] Hemoglobin (Bld) [Mass/Vol] 11.0 g/dL Low 11.5-15.5 [facility] Comment on above: Order Comment: Speci men Type: BLOOD SPECIMEN Ordering Facility: [facility] Address: [address] [place] [address] Performed By: #### 5 7021-8 #### [facility] CLIA [id number] [address] [place] [address] [place] Immature granulocytes (Bld) [#/Vol] 10*3/uL Normal <0.10 [facility] Comment on above: Order Comment: Speci men Type: BLOOD SPECIMEN Ordering Facility: [facility] Address: [address] [place] [address] Performed By: #### 5 7021-8 #### [facility] CLIA [id number] [address] [place] [address] [place] Immature granulocytes/100 WBC (Bld) 0.1 % Normal [facility] Comment on above: Order Comment: Speci men Type: BLOOD SPECIMEN Ordering Facility: [facility] Address: [address] [place] [address] Performed By: #### 5 7021-8 #### [facility] CLIA [id number] [address] [place] [address] [place] Lymphocytes (Bld) [#/Vol] 1.52 10*3/uL Normal 1.00-4.00 [facility] Comment on above: Order Comment: Speci men Type: BLOOD SPECIMEN Ordering Facility: [facility] Address: [address] [place] [address] Performed By: #### 5 7021-8 #### [facility] CLIA [id number] [address] [place] [address] [place] Lymphocytes/100 WBC (Bld) 20.9 % Normal [facility] Comment on above: Order Comment: Speci men Type: BLOOD SPECIMEN Ordering Facility: [facility] Address: [address] [place] [address] Performed By: #### 5 7021-8 #### [facility] CLIA [id number] [address] [place] [address] [place] MCH (RBC) [Entitic mass] 31.1 pg Normal 26.0-34.0 [facility] Comment on above: Order Comment: Speci men Type: BLOOD SPECIMEN Ordering Facility: [facility] Address: [address] [place] [address] Performed By: #### 5 7021-8 #### [facility] CLIA [id number] [address] [place] [id number] [place] [address] [place] MCHC (RBC) [Mass/Vol] 32.8 g/dL Normal 30.5-36.0 [facility] Comment on above: Order Comment: Speci men Type: BLOOD SPECIMEN Ordering Facility: [facility] Address: [address] [place] [address] Performed By: #### 5 7021-8 #### [facility] CLIA [id number] [address] [place] [address] [place] MCV (RBC) [Entitic vol] 94.6 fL Normal 80.0-100.0 [facility] Comment on above: Order Comment: Speci men Type: BLOOD SPECIMEN Ordering Facility: [facility] Address: [address] [place] [address] Performed By: #### 5 7021-8 #### [facility] CLIA [id number] [address] [place] [address] Monocytes (Bld) [#/Vol] 0.40 10*3/uL Normal <0.87 [facility] Comment on above: Order Comment: Speci men Type: BLOOD SPECIMEN Ordering Facility: [facility] Address: [address] [place] [address] Performed By: #### 5 7021-8 #### [facility] CLIA [id number] [address] Monocytes/100 WBC (Bld) 5.5 % Normal A [facility] Comment on above: Order Comment: Speci men Type: BLOOD SPECIMEN Ordering Facility: [facility] Address: [address] [place] [address] Performed By: #### 5 7021-8 #### [facility] CLIA [id number] [address] [place] [address] [place] Neutrophils (Bld) [#/Vol] 5.24 10*3/uL Normal 1.45-7.50 [facility] Comment on above: Order Comment: Speci men Type: BLOOD SPECIMEN Ordering Facility: [facility] Address: [address] [place] [address] Performed By: #### 5 7021-8 #### [facility] CLIA [id number] [address] [place] [address] [place] Neutrophils/100 WBC (Bld) 72.2 % Normal [facility] Comment on above: Order Comment: Speci men Type: BLOOD SPECIMEN Ordering Facility: [facility] Address: [address] [place] [address] Performed By: #### 5 7021-8 #### [facility] CLIA [id number] [address] [place] [address] [place] Nucleated RBC (Bld) [#/Vol] Normal [facility] Comment on above: Order Comment: Speci men Type: BLOOD SPECIMEN Ordering Facility: [facility] Address: [address] [place] [address] Performed By: #### 5 7021-8 #### [facility] CLIA [id number] [address] [place] [address] [place] Nucleated RBC/100 WBC (Bld) [Ratio] Normal [facility] Comment on above: Order Comment: Speci men Type: BLOOD SPECIMEN Ordering Facility: [facility] Address: [address] [place] [address] Performed By: #### 5 7021-8 #### [facility] CLIA [id number] [address] [place] [address] [place] Platelet mean volume (Bld) [Entitic vol] 10.4 fL Normal 9.0-12.7 [facility] Comment on above: Order Comment: Speci men Type: BLOOD SPECIMEN Ordering Facility: [facility] Address: [address] [place] [address] Performed By: #### 5 7021-8 #### [facility] CLIA [id number] [address] [place] [address] [facility] Platelets (Bld) [#/Vol] 178 10*3/uL Normal 150-400 [facility] Comment on above: Order Comment: Speci men Type: BLOOD SPECIMEN Ordering Facility: [facility] Address: [address] [place] [address] Performed By: #### 5 7021-8 #### [facility] CLIA [id number] [address] [place] [address] [facility] [place] RBC (Bld) [#/Vol] 3.54 10*6/uL Low 3.90-5.20 [facility] Comment on above: Order Comment: Speci men Type: BLOOD SPECIMEN Ordering Facility: [facility] Address: [address] [place] [address] Performed By: #### 5 7021-8 #### [facility] CLIA [id number] [address] [place], [place] [address] [place] [address] WBC (Bld) [#/Vol] 7.27 10*3/uL Normal 3.70-11.00 [facility] Comment on above: Order Comment: Speci men Type: BLOOD SPECIMEN Ordering Facility: [facility] Address: [address] [place] [address] Performed By: #### 5 7021-8 #### [facility] CLIA [id number] [address] [place] [address] [facility] Comprehensive metabolic 2000 panelon 01-10-2025 Albumin [Mass/Vol] 3.8 g/dL Low 3.9-4.9 [facility] Comment on above: Order Comment: Speci men Type: BLOOD SPECIMEN Ordering Facility: [facility] Address: [address] [place] [address] Performed By: #### 5 7021-8 #### [facility] CLIA [id number] [address] [place] [address] [facility] ALP [Catalytic activity/Vol] 68 U/L Normal 34-123 [facility] Comment on above: Order Comment: Speci men Type: BLOOD SPECIMEN Ordering Facility: [facility] Address: [address] [place], [place] [address] Performed By: #### 5 7021-8 #### [facility] CLIA [id number] [address] [place] [address] [place] ALT With P-5'-P [Catalytic activity/Vol] 8 U/L Normal 7-38 [facility] Comment on above: Order Comment: Speci men Type: BLOOD SPECIMEN Ordering Facility: [facility] Address: [address] [place] [address] Performed By: #### 5 7021-8 #### [facility] CLIA [id number] [address] [place] [address] [place] Anion gap [Moles/Vol] 12 mmol/L Normal 8-15 [facility] Comment on above: Order Comment: Speci men Type: BLOOD SPECIMEN Ordering Facility: [facility] Address: [address] [place] [address] Performed By: #### 5 7021-8 #### [facility] CLIA [id number] [address] [place] [address] [place] AST With P-5'-P [Catalytic activity/Vol] 14 U/L Normal 13-35 [facility] Comment on above: Order Comment: Speci men Type: BLOOD SPECIMEN Ordering Facility: [facility] Address: [address] [place] [address] Performed By: #### 5 7021-8 #### [facility] CLIA [id number] [address] [place] [address] [place] Bilirubin [Mass/Vol] 0.2 mg/dL Normal 0.2-1.3 [facility] Comment on above: Order Comment: Speci men Type: BLOOD SPECIMEN Ordering Facility: [facility] Address: [address] [place] [address] Performed By: #### 5 7021-8 #### [facility] CLIA [id number] [address] [place] [address] [place] Calcium [Mass/Vol] 9.0 mg/dL Normal 8.5-10.2 [facility] Comment on above: Order Comment: Speci men Type: BLOOD SPECIMEN Ordering Facility: [facility] Address: [address] [place] [address] Performed By: #### 5 7021-8 #### [facility] CLIA [id number] [address] [place] [address] [place] Chloride [Moles/Vol] 105 mmol/L Normal 98-107 [facility] Comment on above: Order Comment: Speci men Type: BLOOD SPECIMEN Ordering Facility: [facility] Address: [address] [place] [address] Performed By: #### 5 7021-8 #### [facility] CLIA [id number] [address] [place] [address] [place] CO2 [Moles/Vol] 22 mmol/L Normal 22-30 [facility] Comment on above: Order Comment: Speci men Type: BLOOD SPECIMEN Ordering Facility: [facility] Address: [address] [place] [address] Performed By: #### 5 7021-8 #### [facility] CLIA [id number] [address] [place] [address] [place] Creatinine [Mass/Vol] 0.50 mg/dL Low 0.58-0.96 [facility] Comment on above: Order Comment: Speci men Type: BLOOD SPECIMEN Ordering Facility: [facility] Address: [address] [place] [address] Performed By: #### 5 7021-8 #### [facility] CLIA [id number] [address] [place] [address] [place] eGFRcr SerPlBld CKD-EPI 2020 125 mL/min/1.73m??? Normal >=60 [facility] Comment on above: Order Comment: Speci men Type: BLOOD SPECIMEN Ordering Facility: [facility] Address: [address] [place] [address] Result Comment: [place] mated Glomerular Filtration Rate (eGFR) is calculated using the 2020 CKD-EPI creatinine equation. This equation utilizes serum creatinine, sex, and age as parameters. The creatinine assay has traceable calibration to isotope dilution-mass spectrometry. Refer to KDIGO guidelines for clinical interpretation. In patients with unstable renal function, e.g. those with acute kidney injury, the eGFR may not accurately reflect actual GFR. Performed By: #### 5 7021-8 #### [facility] CLIA [id number] [address] [place] [address] [place] Glucose [Mass/Vol] 84 mg/dL Normal 74-99 [facility] Comment on above: Order Comment: Toño chou Type: BLOOD SPECIMEN Ordering Facility: [facility] Address: [address] [place] [address] Result Comment: The [place] Diabetes Association (ADA) provides guidance for cutoff values for fasting glucose and random glucose. The ADA defines fasting as no caloric intake for at least 8 hours. Fasting plasma glucose results between 100 to 125 mg/dL indicate increased risk for diabetes (prediabetes). Fasting plasma glucose results greater than or equal to 126 mg/dL meet the criteria for diagnosis of diabetes. In the absence of unequivocal hyperglycemia, results should be confirmed by repeat testing. In a patient with classic symptoms of hyperglycemia or hyperglycemic crisis, random plasma glucose results greater than or equal to 200 mg/dL meet the criteria for diagnosis of diabetes. Reference: Standards of Medical Care in Diabetes 2016, [place] [employer] Association. Diabetes Care. 2016.39(Suppl 1). Performed By: #### 5 7021-8 #### [facility] CLIA [id number] [address] [place] [address] [place] Potassium [Moles/Vol] 3.7 mmol/L Normal 3.7-5.1 [facility] Comment on above: Order Comment: Toño chou Type: BLOOD SPECIMEN Ordering Facility: [facility] Address: [address] [place] [id number] Performed By: #### 5 7021-8 #### [facility] CLIA [id number] [address] [place] [address] [place] Protein [Mass/Vol] 6.4 g/dL Normal 6.3-8.0 [facility] Comment on above: Order Comment: Speci men Type: BLOOD SPECIMEN Ordering Facility: [facility] Address: [address] [place] [address] Performed By: #### 5 7021-8 #### [facility] CLIA [id number] [address] [place] [address] [place] Sodium [Moles/Vol] 139 mmol/L Normal 136-144 [facility] Comment on above: Order Comment: Speci men Type: BLOOD SPECIMEN Ordering Facility: [facility] Address: [address] [place] [address] Performed By: #### 5 7021-8 #### [facility] CLIA [id number] [address] [place] [address] [place] Urea nitrogen [Mass/Vol] 4 mg/dL Low 7-21 [facility] Comment on above: Order Comment: Speci men Type: BLOOD SPECIMEN Ordering Facility: [facility] Address: [address] [place] [address] Performed By: #### 5 7021-8 #### [facility] CLIA [id number] [address] [place] [address] [place] HbA1c (Bld)on 01-10-2025 Average glucose Estimated from glycated hemoglobin (Bld) [Mass/Vol] 97 mg/dL Normal [facility] Comment on above: Order Comment: Speci men Type: BLOOD SPECIMEN Ordering Facility: [facility] Address: [address] [place] [address] Result Comment: eAG: (Estimated average glucose) is a calculated value from HgbA1c and is car sales representative of the average blood glucose level in the last 2-3 month period. Performed By: #### 5 5454-3 #### [facility] CLIA [id number] [address] [place] [address] [place] HbA1c (Bld) [Mass fraction] 5.0 % Normal 4.3-5.6 [facility] Comment on above: Order Comment: Toño chou Type: BLOOD SPECIMEN Ordering Facility: [facility] Address: [address] [place] [address] Result Comment: [place] Diabetes Association guidelines indicate that patients with HgbA1c in the range 5.7-6.4% are at increased risk for development of diabetes, and intervention by lifestyle modification may be beneficial. HgbA1c greater or equal to 6.5% is considered diagnostic of diabetes. Performed By: #### 5 5454-3 #### [facility] CLIA [id number] [address] [place], [place] [address] [address] [place] LIPID PANEL, NONFASTINGon Cholesterol [Mass/Vol] 192 mg/dL Normal <200 [facility] Comment on above: Order Comment: Toño chou Type: BLOOD SPECIMEN Ordering Facility: [facility] Address: [address] [place] [address] Result Comment: <200 mg/dL, Desirable 200-239 mg/dL, Borderline high >239 mg/dL, High Performed By: #### 5 7021-8 #### [facility] CLIA [id number] [address] [place] [address] [place] HDL CHOLESTEROL, NF 70 mg/dL Normal >39 [facility] Comment on above: Order Comment: Toño chou Type: BLOOD SPECIMEN Ordering Facility: [facility] Address: [address] [place] [address] Result Comment: 40-5 9 mg/dL, Acceptable >59 mg/dL, High: Negative risk factor for coronary heart disease <40 mg/dL, Low: Positive risk factor for coronary heart disease Performed By: #### 5 7021-8 #### [facility] CLIA [id number] [address] [place] [address] [facility] [place] LDL CHOLESTEROL CALCULATED, NF 94 mg/dL Normal <100 [facility] Comment on above: Order Comment: Toño chou Type: BLOOD SPECIMEN Ordering Facility: [facility] Address: [address] [place] [address] Result Comment: <100 mg/dL, Optimal 100-129 mg/dL, Near optimal/above optimal 130-159 mg/dL, Borderline high 160-189 mg/dL, High >189 mg/dL, Very high Secondary prevention optimal LDL Cholesterol levels are recommended to be <70 mg/dL LDL cholesterol is calculated using the Avina-NIH equation. Performed By: #### 5 7021-8 #### [facility] CLIA [id number] [address] [place], [place] [id number] [place] [address] LDL/HDL RATIO, NF 1.34 mg/dL Normal <2.54 [facility] Comment on above: Order Comment: Toño chou Type: BLOOD SPECIMEN Ordering Facility: [facility] Address: [address] [place] [address] Result Comment: Percy burnett: 1. National Cholesterol Education Program ATP III Guideline At-A-Glance Quick Desk Reference: National Heart, Lung, and Blood Navarro. National Institutes of Health. 2001: NIH Publication No. 01-3305. 2. An International Atherosclerosis Society position paper: global recommendations for the management of dyslipidemia: executive summary, Atherosclerosis. 2014: 232(2):410-413. Performed By: #### 5 7021-8 #### [facility] CLIA [id number] [address] [place] [address] NON HDL CHOL, NF 122 mg/dL Normal <130 [facility] Comment on above: Order Comment: Toño chou Type: BLOOD SPECIMEN Ordering Facility: [facility] Address: [address] [place] [address] Result Comment: <130 mg/dL, Optimal 130-159 mg/dL, Near optimal/above optimal 160-189 mg/dL, Borderline high 190-219 mg/dL, High >219 mg/dL, Very high Secondary prevention optimal non HDL Cholesterol levels are recommended to be <100 mg/dL Performed By: #### 5 7021-8 #### [facility] CLIA [id number] [address] [place], [place] [id number] [place] [address] T CHOL/HDL RATIO NF 2.74 mg/dL Normal <5.10 [facility] Comment on above: Order Comment: Toño chou Type: BLOOD SPECIMEN Ordering Facility: [facility] Address: [address] [place] [address] Performed By: #### 5 7021-8 #### [facility] CLIA [id number] [address] [place] [address] [facility] TRIGLYCERIDES, NF 165 mg/dL High <150 [facility] Comment on above: Order Comment: Toño chou Type: BLOOD SPECIMEN Ordering Facility: [facility] Address: [address] [place] [address] Result Comment: <150 mg/dL, Normal 150-199 mg/dL, Borderline high 200-499 mg/dL, High >499 mg/dL, Very high Performed By: #### 5 7021-8 #### [facility] CLIA [id number] [address] [place] [address] [place] VLDL CHOLESTEROL, NF 27 mg/dL Normal <30 [facility] Comment on above: Order Comment: Toño chou Type: BLOOD SPECIMEN Ordering Facility: [facility] Address: [address] [place] [address] Performed By: #### 5 7021-8 #### [facility] CLIA [id number] [address] [place] [address] [place] TSH SerPl-aCncon 01-10-2025 TSH Qn 1.650 m[IU]/L Normal 0.270-4.200 [facility] Comment on above: Order Comment: Toño chou Type: BLOOD SPECIMEN Ordering Facility: [facility] Address: [address] [place] [address] Result Comment: If t he patient is , TSH reference range varies by gestational period: First Trimester (weeks 9-12): 0.180-2.990 mIU/L Second Trimester: 0.110-3.980 mIU/L Third Trimester: 0.480-4.710 mIU/L Tanner Gardner et al. A Practical Approach for the Verifications and Determination of Site- and Trimester-Specific Reference Intervals for Thyroid Function tests in . Thyroid, 2019:29:3:412-420. Dieter Pisano, et al. 2017 Guidelines of the [place] Thyroid Association for the Diagnosis and Management of Thyroid Disease during and the . Thyroid, 2017:27:3:315-389. Performed By: #### 5 7021-8 #### [facility] CLIA [id number] [address] [place] [address] [facility] [place] Urine Cultureon 01-08-2025 URC Klebsiella pneumonia e sp pneum [place] Count >100,000 Klebsiella pneumoniae sp pneum: REACTION Ampicillin Islt PATRICE >=32 Ampicillin+Sulbac Islt PATRICE 4 S Cefepime Islt PATRICE <=0.12 S cefTRIAXone Islt PATRICE <=0.25 S Ciprofloxacin Islt PATRICE <=0.06 S B-Lactamase Extended Susc Islt NEG Gentamicin Islt PATRICE <=1 S levoFLOXacin Islt PATRICE <=0.12 S Meropenem Islt PATRICE <=0.25 S Nitrofurantoin Islt PATRICE 32 S Pip+Tazo Islt PATRICE <=4 S TMP SMX Islt PATRICE <=20 S Normal [facility] Comment on above: Performed By: #### L 3100.8410, L3410.2000, L4500.0100 #### [facility] [address], [place], [address] Laboratory - Chemistry and C hemistry - challengeOrdered By: Smiley Madrid on 01-06-2025 Bilirubin Ql (U) Negative [facility] Glucose Ql (U) Negative [facility] Ketones Ql (U) Negative [facility] pH (U) 6.5 [pH] [facility] Specific gravity (U) [Rel density] 1.010 [facility] Urobilinogen (U) [Mass/Vol] 0.9228069 mg/dL [facility] - Hematology and Cell countsOrdered By: Smiley Madrid on 01-06-2025 Hemoglobin Ql (U) Negative [facility] - Specimen inform ationOrdered By: Smiley Madrid on 01-06-2025 Clarity (U) Clear [facility] Color (U) YELLOW [facility] - UrinalysisOrder ed By: Smiley Madrid on 01-06-2025 Nitrite Ql (U) Negative [facility] Protein Ql (U) Negative [facility] No Panel InformationOrdered By: Smiley Madrid on 01-06-2025 Urine Leukocytes Positive [facility] Urine Non-Hemolyzed Blood [facility] Pop Singer Office Visit Reporton 01-06-2025 Pop Singer Office Visit Report [facility] [address], [address] [place] [address] OFFICE VISIT Date of Service: 01/06/25 MR#: [id number] Acct: [id number] Name: KARRI MARTIN Rep #: [id number] : 1990 Provider: Dr. Smiley herrmann MD Age/Sex: 34/F Location: [facility] [place] Status: Signed Intake Vital Signs 12/18/24 14:16 01/06/25 14:00 01/06/25 16:00 Height 5 ft 4 in 5 ft 4 in 5 ft 4 in Weight: 165 lb 3 oz BMI 28.3 BP 122/73 H Intake Visit Reasons: OB, H/A, incontinence, UA Culture Rn Chronic Required: No Is patient in pain?: Yes (pelvic pain) Allergies nitrofurantoin Allergy (Mild, Verified 01/06/25 16:01) Hives Medications ???Medication ???Instructions ???Recorded ???Confirmed ???Type sertraline 25 mg tablet 25 mg PO DAILY anxiety #30 tabs 01/06/25 Rx levothyroxine 150 mcg tablet 150 mcg PO .COMPLEX hypothyorid 01/06/25 History multivit-min no.71-iron fum 28 cap PO 10/03/24 01/06/25 History mg-folate no.1 1 mg-dha 300 mg capsule (PNV-Merrifield) cephalexin 500 mg capsule 500 mg PO TID 7 days #21 caps 07/0101/06/25 Rx Last Menstrual Period: 08/12/24 Zika: Zika virus screening: Negative : No PFSH PFSH Medical History AMA (advanced maternal age) multigravida 35+ H/O gestational diabetes in prior , currently Supervision of high-risk History of oligohydramnios in prior , currently Previous gestational diabetes mellitus, antepartum Spotting in early Hx of recurrent urinary tract infection delivery delivered History of pre-term labor History of premature rupture of membranes (PPROM) History of prior with IUGR Thyroid disorder Anemia affecting IUGR (intrauterine growth restriction) in prior , Surgical History H/O dilation and curettage H/O section Campbell teeth extracted S/P Family History Father Diabetes Grandfather Diabetes Paternal Maternal Mother Seizures Social History adopted: Yes (13yrs old) household members: spouse and children housing: house number of children: 3 current occupational status: employed 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[employer] current 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/hazards: No pets and animals: Yes ( taking care of litter box) pets and animals: cat(s) and dog(s) history of recent travel: No sexually active: Yes Smoking Status: Never smoker alcohol intake: current alcohol intake frequency: holidays/special occasions only details: Not while substance use type: does not use well-balanced diet: daily or most days caffeine: No eating out: rarely or never during the past year weight has: remained stable what type of physical activity do you participate in: walking and weight training frequency: 3-4 times per week duration: 15-30 minutes/day fatou/christianity: Quaker seatbelt use: always do you feel safe at home: Yes additional social history: : Stephen - Management History 7 Elective abortions Hx Para 3 Spontaneous abortions 3 Hx # Term Pregnancies Ectopic pregnancies Hx # Pregnancies Multiple births # of living children 3 Past Pregnancies Del. Date Name GA/Weeks Outcome Route Bth Weight Infant Gen Labor Lgth Anesthesia Del Locatn Provider FOB 04/03/17 Antonina 40 live - full term 7lbs 12oz Female 3 days epi dural [facility] Dr[facility] 01/10/19 Raffy 36 live - 5lbs 12oz Male 0 spinal [place] [facility]te mma [facility] 11/19/20 5 spontaneous 08/22/21 Lieda 39 live - full term 7lbs 3oz Female spinal [facility] 07/16/23 5 spontaneous 04/21/24 11 spontaneous SM Delivery Date: 04/03/17 Last Updated by: Kim Olsen STAT c/s nuchal cord; distress Delivery Date: 01/10/19 Last Updated by: Kim Olsen PPROM, STAT C/S; IUGR; Oligo Delivery Date: 08/22/21 Last Updated by: Karina Chávez RLTCS Delivery Date: 04/21/24 Last Updated by: Alice Padilla RN D C, measuring 9w1d HPI OB, H/A, incontinence, UA Culture Details: KARRI VILLAVICENCIO is a 34 year old who presents for routine OB visit. OB Visit MARGUERITE Calculator Estimated Delivery Date Method Current WG Current Estimate 05/16/25 LMP (Certain) 21w 3d Other Estimates 05/15/25 Ultrasound #1 21w 4d Expected Delivery Route/Plan plans re (more content not included)... Normal [facility] Urine cultureOrdered By: Toño Madrid on 01-06-2025 Bacteria identified Cx Nom (U) Klebsiella pneumoniae sp pneum Abnormal [facility] Bacteria identified Cx Nom (U) Klebsiella pneumoniae sp pneum Abnormal [facility] Pop Singer Office Visit Reporton 12-18-2024 Pop Singer Office Visit Report [facility] [address], [address] [place] [address] OFFICE VISIT Date of Service: 12/18/24 MR#: [id number] Acct: [id number] Name: KARRI MARTIN Rep #: [id number] : 1990 Provider: Dr. Smiley herrmann MD Age/Sex: 34/F Location: [facility] Status: Signed Intake Vital Signs 11/18/24 10:04 12/01/24 10:40 12/18/24 14:13 12/18/24 14:16 Height 5 ft 4 in 5 ft 4 in 5 ft 4 in 5 ft 4 in Weight: 162 lb 9 oz BMI 27.8 BP 121/70 H Intake Visit Reasons: 17 WK OB Rn Chronic Required: No Is patient in pain?: Yes (wrist pain/numbness) Allergies nitrofurantoin Allergy (Mild, Verified 12/18/24 14:12) Hives Medications ???Medication ???Instructions ???Recorded ???Confirmed ???Type sertraline 25 mg tablet 25 mg PO DAILY anxiety #30 tabs 12/18/24 Rx levothyroxine 150 mcg tablet 150 mcg PO .COMPLEX hypothyorid 12/18/24 History multivit-min no.71-iron fum 28 cap PO 10/03/24 12/18/24 History mg-folate no.1 1 mg-dha 300 mg capsule (PNV-Merrifield) Last Menstrual Period: 08/12/24 Zika: Zika virus screening: Negative : No PFSH PFSH Medical History AMA (advanced maternal age) multigravida 35+ H/O gestational diabetes in prior , currently Supervision of high-risk History of oligohydramnios in prior , currently Previous gestational diabetes mellitus, antepartum Spotting in early Hx of recurrent urinary tract infection delivery delivered History of pre-term labor History of premature rupture of membranes (PPROM) History of prior with IUGR Thyroid disorder Anemia affecting IUGR (intrauterine growth restriction) in prior , Surgical History H/O dilation and curettage H/O section Campbell teeth extracted S/P Family History Father Diabetes Grandfather Diabetes Paternal Maternal Mother Seizures Social History adopted: Yes (13yrs old) household members: spouse and children housing: house number of children: 3 current occupational status: employed 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[employer] current 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/hazards: No pets and animals: Yes ( taking care of litter box) pets and animals: cat(s) and dog(s) history of recent travel: No sexually active: Yes Smoking Status: Never smoker alcohol intake: current alcohol intake frequency: holidays/special occasions only details: Not while substance use type: does not use well-balanced diet: daily or most days caffeine: No eating out: rarely or never during the past year weight has: remained stable what type of physical activity do you participate in: walking and weight training frequency: 3-4 times per week duration: 15-30 minutes/day fatou/christianity: Quaker seatbelt use: always do you feel safe at home: Yes additional social history: : Stephen - Management History 7 Elective abortions Hx Para 3 Spontaneous abortions 3 Hx # Term Pregnancies Ectopic pregnancies Hx # Pregnancies Multiple births # of living children 3 Past Pregnancies Del. Date Name GA/Weeks Outcome Route Bth Weight Gen Labor Lgth Anesthesia Del Locatn Provider FOB 04/03/17 Antonina 40 live - full term 7lbs 12oz Female 3 days epi dural [facility] Dr[facility] 01/10/19 Raffy 34 live - 5lbs 12oz Male 0 spinal [place] Whyte mma [facility] 11/19/20 5 spontaneous 08/22/21 Lieda 39 live - full term 7lbs 3oz Female spinal H [facility] 07/16/23 5 spontaneous 04/21/24 11 spontaneous SM Delivery Date: 04/03/17 Last Updated by: Kim Olsen STAT c/s nuchal cord; distress Delivery Date: 01/10/19 Last Updated by: Kim Olsen PPROM, STAT C/S; IUGR; Oligo Delivery Date: 08/22/21 Last Updated by: Karina Chávez RLTCS Delivery Date: 04/21/24 Last Updated by: Alice Padilla RN D C, measuring 9w1d HPI 17 WK OB Details: KARRI VILLAVICENCIO is a 34 year old who presents for routine OB visit. OB Visit MARGUERITE Calculator Estimated Delivery Date Method Current WG Current Estimate 05/16/25 LMP (Certain) 18w 5d Other Estimates 05/15/25 Ultrasound #1 18w 6d Expected Delivery Route/Plan plans repeat c/s Specific Issue/Plans Covid status: [] Flu vaccine: [] Tdap vaccine: [] (more content not included)... Normal [facility] T4 Free Directon 12-18-2024 T4 FREE DIRECT 0.90 ng/dL Normal 0.76-1.46 [facility] Comment on above: Performed By: #### L 501.9520, L506.0400 #### [facility] [address] [place], [address] T4 freeOrdered By: Smiley suarez on 12-18-2024 Free T4 [Mass/Vol] 0.90 ng/dL 0.76-1.46 [facility] TSH DL <= 0.005 mIU/L QnOrde red By: Smiley Madrid on 12-18-2024 TSH Qn 2.470 uIU/mL 0.300-4.200 [facility] Thyroid Stim Hormone (TSH)on 12-18-2024 TSH 2.470 uIU/mL Normal 0.300-4.200 [facility] Comment on above: Performed By: #### L 501.9520, L506.0400 #### [facility] [address] [place], [address] Laboratory - Chemistry and C hemistry - challengeOrdered By: Margo San on 12-01-2024 Glucose Ql (U) Negative [facility] - UrinalysisOrder ed By: Margo San on 12-01-2024 Protein Ql (U) Negative [facility] Pop Singer Office Visit Reporton 12-01-2024 Pop Singer Office Visit Report [facility] [address], [address] [place] [address] OFFICE VISIT Date of Service: 12/01/24 MR#: [id number] Acct: [id number] Name: KARRI MARTIN Rep #: [id number] : 1990 Provider: EZEQUIEL Barker ams Age/Sex: 34/F Location: [facility] Status: Signed Intake Vital Signs 10/13/24 08:23 11/18/24 10:04 12/01/24 10:40 Height 5 ft 4 in 5 ft 4 in 5 ft 4 in Weight: 161 lb 8 oz BMI 27.7 BP 115/72 Intake Visit Reasons: Heartbeat check Chief Complaint: Heartbeat check Rn Chronic Required: No Is patient in pain?: No Allergies nitrofurantoin Allergy (Mild, Verified 11/18/24 10:02) Hives Medications ???Medication ???Instructions ???Recorded ???Confirmed ???Type sertraline 25 mg tablet 25 mg PO DAILY anxiety #30 tabs 12/01/24 Rx levothyroxine 150 mcg tablet 150 mcg PO .COMPLEX hypothyorid 12/01/24 History multivit-min no.71-iron fum 28 cap PO 10/03/24 12/01/24 History mg-folate no.1 1 mg-dha 300 mg capsule (PNV-Merrifield) Last Menstrual Period: 08/12/24 : No Have you fallen in the past year?: No PFSH PFSH Medical History AMA (advanced maternal age) multigravida 35+ H/O gestational diabetes in prior , currently Supervision of high-risk History of oligohydramnios in prior , currently Previous gestational diabetes mellitus, antepartum Spotting in early Hx of recurrent urinary tract infection delivery delivered History of pre-term labor History of premature rupture of membranes (PPROM) History of prior with IUGR Thyroid disorder Anemia affecting IUGR (intrauterine growth restriction) in prior , Surgical History H/O dilation and curettage H/O section Campbell teeth extracted S/P Family History Father Diabetes Grandfather Diabetes Paternal Maternal Mother Seizures Social History adopted: Yes (13yrs old) household members: spouse and children housing: house number of children: 3 current occupational status: employed 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[employer] current 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/hazards: No pets and animals: Yes ( taking care of litter box) pets and animals: cat(s) and dog(s) history of recent travel: No sexually active: Yes Smoking Status: Never smoker alcohol intake: current alcohol intake frequency: holidays/special occasions only details: Not while substance use type: does not use well-balanced diet: daily or most days caffeine: No eating out: rarely or never during the past year weight has: remained stable what type of physical activity do you participate in: walking and weight training frequency: 3-4 times per week duration: 15-30 minutes/day fatou/christianity: Quaker seatbelt use: always do you feel safe at home: Yes additional social history: : Stephen - Management History 7 Elective abortions Hx Para 3 Spontaneous abortions 3 Hx # Term Pregnancies Ectopic pregnancies Hx # Pregnancies Multiple births # of living children 3 Past Pregnancies Del. Date Name GA/Weeks Outcome Route Bth Weight Infant Gen Labor Lgth Anesthesia Del Locatn Provider FOB 04/03/17 Antonina 40 live - full term 7lbs 12oz Female 3 days epi dural [facility] Dr[facility] 01/10/19 Raffy 34 live - 5lbs 12oz Male 0 spinal [place] mma [facility] 11/19/20 5 spontaneous 08/22/21 Lieda 39 live - full term 7lbs 3oz Female spinal [facility] 07/16/23 5 spontaneous 04/21/24 11 spontaneous SM Delivery Date: 04/03/17 Last Updated by: Kim Olsen STAT c/s nuchal cord; distress Delivery Date: 01/10/19 Last Updated by: Kim Olsen PPROM, STAT C/S; IUGR; Oligo Delivery Date: 08/22/21 Last Updated by: Karina Chávez RLTCS Delivery Date: 04/21/24 Last Updated by: Alice Padilla RN D C, measuring 9w1d HPI Heartbeat check Details: KARRI VILLAVICENCIO is a 34 year old who presents for routine OB visit. OB Visit MARGUERITE Calculator Estimated Delivery Date Method Current WG Current Estimate 05/16/25 LMP (Certain) 16w 2d Other Estimates 05/15/25 Ultrasound #1 16w 3d Expected Delivery Route/Plan plans repeat c/s Specific Issue/Plans Covid status: [] Flu vaccine: [] Tdap vaccine: [] Rhogam: [] LARC fo (more content not included)... Normal [facility] - Chemistry and C hemistry - challengeOrdered By: Jackie Claudio on 11-18-2024 Glucose Ql (U) Negative [facility] - UrinalysisOrder ed By: Jackie Claudio on 11-18-2024 Protein Ql (U) Negative [facility] Pop Singer Office Visit Reporton 11-18-2024 Pop Singer Office Visit Report [facility] [address], [address] [place] [address] OFFICE VISIT Date of Service: 11/18/24 MR#: [id number] Acct: [id number] Name: KARRI MARTIN Rep #: [id number] : 1990 Provider: Dr. Jackie Ragland DO Age/Sex: 34/F Location: [facility] Status: Signed Intake Vital Signs 05/19/24 11:13 10/27/24 11:09 11/18/24 10:04 Height 5 ft 4 in 5 ft 4 in 5 ft 4 in Weight: 159 lb BMI 27.3 BP 116/77 Intake Visit Reasons: 13wk OB Chief Complaint: 13wk OB Rn Chronic Required: No Is patient in pain?: No Allergies nitrofurantoin Allergy (Mild, Verified 11/18/24 10:02) Hives Medications ???Medication ???Instructions ???Recorded ???Confirmed ???Type sertraline 25 mg tablet 25 mg PO DAILY anxiety #30 tabs 11/18/24 Rx levothyroxine 150 mcg tablet 150 mcg PO .COMPLEX hypothyorid 11/18/24 History multivit-min no.71-iron fum 28 cap PO 10/03/24 11/18/24 History mg-folate no.1 1 mg-dha 300 mg capsule (PNV-Merrifield) Last Menstrual Period: 08/12/24 : No PFSH PFSH Medical History AMA (advanced maternal age) multigravida 35+ H/O gestational diabetes in prior , currently Supervision of high-risk History of oligohydramnios in prior , currently Previous gestational diabetes mellitus, antepartum Spotting in early Hx of recurrent urinary tract infection delivery delivered History of pre-term labor History of premature rupture of membranes (PPROM) History of prior with IUGR Thyroid disorder Anemia affecting IUGR (intrauterine growth restriction) in prior , Surgical History H/O dilation and curettage H/O section Campbell teeth extracted S/P Family History Father Diabetes Grandfather Diabetes Paternal Maternal Mother Seizures Social History adopted: Yes (13yrs old) household members: spouse and children housing: house number of children: 3 current occupational status: employed 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[employer] current 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/hazards: No pets and animals: Yes ( taking care of litter box) pets and animals: cat(s) and dog(s) history of recent travel: No sexually active: Yes Smoking Status: Never smoker alcohol intake: current alcohol intake frequency: holidays/special occasions only details: Not while substance use type: does not use well-balanced diet: daily or most days caffeine: No eating out: rarely or never during the past year weight has: remained stable what type of physical activity do you participate in: walking and weight training frequency: 3-4 times per week duration: 15-30 minutes/day fatou/christianity: Quaker seatbelt use: always do you feel safe at home: Yes additional social history: : Stephen - Management History 7 Elective abortions Hx Para 3 Spontaneous abortions 3 Hx # Term Pregnancies Ectopic pregnancies Hx # Pregnancies Multiple births # of living children 3 Past Pregnancies Del. Date Name GA/Weeks Outcome Route Bth Weight Gen Labor Lgth Anesthesia Del Locatn Provider FOB 04/03/17 Antonina 40 live - full term 7lbs 12oz Female 3 days epi dural [facility] 01/10/19 Raffy 36 live - 5lbs 12oz Male 0 spinal [place] Whyet [facility] 11/19/20 5 spontaneous 08/22/21 Lieda 39 live - full term 7lbs 3oz Female spinal [facility] 07/16/23 5 spontaneous 04/21/24 11 spontaneous SM Delivery Date: 04/03/17 Last Updated by: Kim Olsen STAT c/s nuchal cord; distress Delivery Date: 01/10/19 Last Updated by: Kim Olsen PPROM, STAT C/S; IUGR; Oligo Delivery Date: 08/22/21 Last Updated by: Karina Chávez RLS Delivery Date: 04/21/24 Last Updated by: YIN Tabares C, measuring 9w1d HPI 13wk OB Details: KARRI VILLAVICENCIO is a 34 year old who presents for routine OB visit. OB Visit MARGUERITE Calculator Estimated Delivery Date Method Current WG Current Estimate 05/16/25 LMP (Certain) 14w 3d Other Estimates 05/15/25 Ultrasound #1 14w 4d Expected Delivery Route/Plan plans repeat c/s Specific Issue/Plans Covid status: [] Flu vaccine: [] Tdap vaccine: [] Rhogam: [] LARC form signed: [] Problem list reviewed and updated with the (more content not included)... Normal [facility] L3410.9992on 11-02-2024 [facility] Misc. COMMENT Normal . [facility] Comment on above: Order Comment: [id number] 8TSH R AB SERUM FZ Result Comment: Test Ordered: [id number] TSH Receptor Antibody (TBII) TSH Receptor Antibody (TBII) <0.3 U/L Reference Range: . Reference Range: Antibody Titer: <1.0 U/L = Negative 1.1 - 1.5 U/L = Equivocal >1.5 U/L = Positive Performed at: [facility] [address] [place] [id number] Global Manager: Neil Mosquera MD, Phone: [phone] Performed at: - [facility] [address] [id number] Global Manager: Babatunde Fuller PhD, Phone: [phone] Performed By: #### L 501.6155, L506.0400 #### [facility] [address] [place], [address] Urine Cultureon 10-29-2024 [facility] Escherichia coli [place] Count 50,000-80,000 Escherichia coli: REACTION Ampicillin Islt PATRICE <=2 Ampicillin+Sulbac Islt PATRICE <=2 S Cefepime Islt PATRICE <=0.12 S cefTRIAXone Islt PATRICE <=0.25 S Ciprofloxacin Islt PATRICE <=0.06 S B-Lactamase Extended Susc Islt NEG Gentamicin Islt PATRICE <=1 S levoFLOXacin Islt PATRICE <=0.12 S Meropenem Islt PATRICE <=0.25 S Nitrofurantoin Islt PATRICE <=16 S Pip+Tazo Islt PATRICE <=4 S TMP SMX Islt PATRICE <=20 S Normal [facility] Comment on above: Performed By: #### L 501.9520, L506.0400 #### [facility] [address] [facility] [place], [address] Absolute lymphocyte countOrd ered By: Margo San on 10-27-2024 Lymphocytes Auto (Unsp spec) [#/Vol] 1.91 10*3/uL 0.83-4.51 [facility] Absolute neutrophil countOrd ered By: Margo San on 10-27-2024 Neutrophils (Bld) [#/Vol] 5.2 10*3/uL 2.0-7.7 [facility] Automated lymphocyte count a s percentage of total leukocytesOrdered By: Margo San on 10-27-2024 Lymphocytes/100 WBC Auto (Unsp spec) 24.5 % 19-41 [facility] Basophil percentageOrdered B y: Margo San on 10-27-2024 Basophils/100 WBC (Bld) 0.4 % 0-1 [facility] CBC W/Diff, Automatedon 10-06 Absolute Lymph 1.91 X10 3/uL Normal 0.83-4.51 [facility] Comment on above: Performed By: #### M 100.2200, L7000.1800 #### [facility] [address] [facility] [place], [address] Absolute Neut 5.2 X10 3/uL Normal 2.0-7.7 [facility] Comment on above: Performed By: #### M 100.2200, L7000.1800 #### [facility] [address] [place], [address] Basophils/100 WBC (Bld) 0.4 % Normal 0-1 [facility] Comment on above: Performed By: #### M 100.2200, L7000.1800 #### [facility] [address] [place], [address] Eosinophils/100 WBC (Bld) 2.1 % Normal 0-5 [facility] Comment on above: Performed By: #### M 100.2200, L7000.1800 #### [facility] [address] [place], [address] Erythrocyte distribution width (RBC) [Ratio] 13.2 % Normal 11.6-14.6 [facility] Comment on above: Performed By: #### M 100.2200, L7000.1800 #### [facility] [address] [place], [address] Hematocrit (Bld) [Volume fraction] 36.3 % Low 37-47 [facility] Comment on above: Performed By: #### M 100.2200, L7000.1800 #### [facility] [address] [place], [address] Hemoglobin (Bld) [Mass/Vol] 12.1 g/dL Normal 12.0-15.0 [facility] Comment on above: Performed By: #### M 100.2200, L7000.1800 #### [facility] [address] [place], [address] IG% 0.300 Normal 0.0-0.9 [facility] Comment on above: Result Comment: IG% - Immature Granulocytes (promyelocytes, myelocytes and metamyelocytes) > 1% indicates that a LEFT SHIFT is Present. Performed By: #### M 100.2200, L7000.1800 #### [facility] [address] [place], [address] Lymphocytes/100 WBC (Bld) 24.5 % Normal 19-41 [facility] Comment on above: Performed By: #### M 100.2200, L7000.1800 #### [facility] [address] [place], [address] MCH (RBC) [Entitic mass] 30.2 pg Normal 27.0-32.0 [facility] Comment on above: Performed By: #### M 100.2200, L7000.1800 #### [facility] [address] [place], [address] MCHC (RBC) [Mass/Vol] 33.3 g/dL Normal 32-36 [facility] Comment on above: Performed By: #### M 100.2200, L7000.1800 #### [facility] [address] [place], [address] MCV (RBC) [Entitic vol] 90.5 fL Normal 81-99 [facility] Comment on above: Performed By: #### M 100.2200, L7000.1800 #### [facility] [address] [place], [address] Monocytes/100 WBC (Bld) 6.3 % Normal 0-10 [facility] Comment on above: Performed By: #### M 100.2200, L7000.1800 #### [facility] [address] [place], [address] Neutrophils/100 WBC (Bld) 66.4 % Normal 47-70 [facility] Comment on above: Performed By: #### M 100.2200, L7000.1800 #### [facility] [address] [place], [address] Nucleated RBC (Bld) [#/Vol] 0 10*3/uL Normal 0-5 [facility] Comment on above: Performed By: #### M 100.2200, L7000.1800 #### [facility] [address] [place], [address] Platelet mean volume (Bld) [Entitic vol] 10.5 fL Normal 6.2-12.0 [facility] Comment on above: Performed By: #### M 100.2200, L7000.1800 #### [facility] [address] [place], [address] Platelets (Bld) [#/Vol] 195 10*3/uL Normal 150-450 [facility] Comment on above: Performed By: #### M 100.2200, L7000.1800 #### [facility] [address] [place], [address] RBC (Bld) [#/Vol] 4.01 10*6/uL Low 4.2-5.4 [facility] Comment on above: Performed By: #### M 100.2200, L7000.1800 #### [facility] [address] [place], [address] RDW SD 43.4 fl Normal 35.1-43.9 [facility] Comment on above: Performed By: #### M 100.2200, L7000.1800 #### [facility] [address] [place], [address] WBC (Bld) [#/Vol] 7.8 10*3/uL Normal 4.4-11.0 [facility] Comment on above: Performed By: #### M 100.2200, L7000.1800 #### [facility] [address] [place], [address] Eosinophil percentageOrdered By: Margo San on 10-27-2024 Eosinophils/100 WBC (Bld) 2.1 % 0-5 [facility] Erythrocyte distribution wid th ratioOrdered By: Margo San on 10-27-2024 Erythrocyte distribution width (RBC) [Ratio] 13.2 % 11.6-14.6 [facility] Erythrocyte distribution wid th standard deviationOrdered By: Margo San on 10-27-2024 Erythrocyte distribution width (RBC) [Ratio] 43.4 fl 35.1-43.9 [facility] HIVon 10-27-2024 HIV Non-Reactive Normal Nonreactive [facility] Comment on above: Result Comment: Non- Reactive Reactive Repeatedly reactive samples must be confirmed according to CDC recommended confirmatory algorithms. The subresults for either HIVAG or AHIV can be used as an aid in the selection of the confirmation algorithm for reactive samples. Send out specimens with Reactive results to [facility] for confirmation. Order the HIV antibody detection and differentiation: [id number] Performed By: #### L 501.9520, L506.0400 #### [facility] [address] [place], [place], [address] Hematocrit Auto (Bld) [Volum e fraction]Ordered By: Margo San on 10-27-2024 Hematocrit (Bld) [Volume fraction] 36.3 % Low 37-47 [facility] Hemoglobin measurementOrdere d By: Margo San on 10-27-2024 Hemoglobin (Bld) [Mass/Vol] 12.1 g/dL 12.0-15.0 [facility] Hepatitis C Antibodyon 10-27 Hepatitis C Ab Non-Reactive Normal Nonreactive [facility] Comment on above: Result Comment: Reac tive: Presumptive evidence of antibodies to HCV. Follow CDC recommendations for supplemental testing. Non-Reactive: Antibodies to HCV were not detected; does not exclude the possibility of exposure to HCV Reactive Results are presumptive evidence of antibodies to HCV. Follow CDC recommendations for supplemental testing. Order confirmation testing: HCV Quant by PCR testing - HCVPCR #[id number] Non Reactive: < 0.8 Equivocal: >/= 0.8 to < 1.0 Reactive: >/= 1.0 The CDC requires that a reactive/equivocal HCV antibody result be sent out for confirmation. HCV Quant by PCR testing. Performed By: #### L 501.9520, L506.0400 #### [facility] [address] [place], [address] Immature granulocytes/100 WB C Auto (Bld)Ordered By: Margo San on 10-27-2024 Immature granulocytes/100 WBC (Bld) 0.300 % 0.0-0.9 [facility] Comment on above: IG% - Immature Granu locytes (promyelocytes, myelocytes and metamyelocytes) > 1% indicates that a LEFT SHIFT is Present. L3890.6102on 10-27-2024 HEP B Surf Ag Non-Reactive Normal Nonreactive [facility] Comment on above: Result Comment: Reac tive: Presumptive evidence of HBV. Repeatedly reactive samples must be confirmed using a neutralization test ([employer] HBsAg Confirmatory Test) Non-Reactive: HBsAg not detected; does not exclude the possibility of exposure to HBV Performed By: #### L 501.9520, L506.0400 #### [facility] [address] [facility] [place], [address] L509.4006on 10-27-2024 Rubella IgG REAC Normal Nonreactive [facility] Comment on above: Result Comment: Anti body Result: Interpretation Non-Reactive: Non-Immune Reactive: Immune The following results were obtained with the [employer] Rubella IgG assay. Results from assays of other manufacturers cannot be used interchangeably. Performed By: #### L 501.9520, L506.0400 #### [facility] [address] [facility] [place], [address] Laboratory - Chemistry and C hemistry - challengeOrdered By: Smiley Madrid on 10-27-2024 Bilirubin Ql (U) Negative [facility] Glucose Ql (U) Negative [facility] Ketones Ql (U) Negative [facility] pH (U) 6.0 [pH] [facility] Specific gravity (U) [Rel density] 1.010 [facility] Urobilinogen (U) [Mass/Vol] Negative [facility] Laboratory - Hematology and Cell countsOrdered By: Smiley Madrid on 10-27-2024 Hemoglobin Ql (U) Negative [facility] Laboratory - Microbiology an d Antimicrobial susceptibilityOrdered By: Margo San on 10-27-2024 HBV surface Ag Ql (S) Non-Reactive Nonreactive [facility] Comment on above: Reactive: Presumptiv e evidence of HBV. Repeatedly reactive samples must be confirmed using a neutralization test ([employer] HBsAg Confirmatory Test)Non-Reactive: HBsAg not detected; does not exclude the possibility of exposure to HBV Laboratory - Specimen inform ationOrdered By: Smiley Madrid on 10-27-2024 Clarity (U) Clear [facility] Color (U) YELLOW [facility] Laboratory - UrinalysisOrder ed By: Smiley Madrid on 10-27-2024 Nitrite Ql (U) Negative [facility] Protein Ql (U) Negative [facility] MCV (mean corpuscular volume ) determinationOrdered By: Margo San on 10-27-2024 MCV (RBC) [Entitic vol] 90.5 fL 81-99 [facility] Mean corpuscular hemoglobin (MCH) determinationOrdered By: Margo San on 10-27-2024 MCH (RBC) [Entitic mass] 30.2 pg 27.0-32.0 [facility] Mean corpuscular hemoglobin concentration (MCHC) determinationOrdered By: Margo San on 10-27-2024 MCHC (RBC) [Mass/Vol] 33.3 g/dL 32-36 [facility] Mean platelet volume determi nationOrdered By: Margo San on 10-27-2024 Platelet mean volume (Bld) [Entitic vol] 10.5 fL 6.2-12.0 [facility] Monocyte percentageOrdered B y: Margo San on 10-27-2024 Monocytes/100 WBC (Bld) 6.3 % 0-10 [facility] NATERAon 10-27-2024 NATURA SEE SCANNED REPORT Normal [facility] Comment on above: Order Comment: Comme nts: NIPT with Gender Performed By: #### L 501.9520, L506.0400 #### [facility] [address] [place], [address] Neutrophil percentageOrdered By: Margo San on 10-27-2024 Neutrophils/100 WBC (Bld) 66.4 % 47-70 [facility] No Panel InformationOrdered By: Margo San on 10-27-2024 HIV (1&2) Antibody Non-Reactive Nonreactive [facility] Comment on above: Non-ReactiveReactive Repeatedly reactive samples must be confirmed according to CDC recommended confirmatory algorithms. The subresults for either HIVAG or AHIV can be used as an aid in the selection of the confirmation algorithm for reactive samples.Send out specimens with Reactive results to [facility] for confirmation.Order the HIV antibody detection and differentiation: #[id number] No Panel InformationOrdered By: Smiley Madrid on 10-27-2024 Urine Leukocytes Negatve [facility] Urine Non-Hemolyzed Blood [facility] Nucleated red blood cell per centageOrdered By: Margo San on 10-27-2024 Nucleated RBC/100 WBC (Bld) [Ratio] 0 % 0-5 [facility] Pop Singer Office Visit Reporton 10-27-2024 Pop Singer Office Visit Report [facility], [address] [place] [address] OFFICE VISIT Date of Service: 10/27/24 MR#: [id number] Acct: [id number] Name: KARRI MARTIN Rep #: [id number] : 1990 Provider: Dr. Smiley herrmann MD Age/Sex: 34/F Location: [facility] [place] Status: Signed Intake Vital Signs 10/13/24 08:23 10/27/24 11:09 Height 5 ft 4 in 5 ft 4 in Weight: 161 lb 6 oz BMI 27.6 BP 116/62 Intake Visit Reasons: Heartbeat Check Rn Chronic Required: No Is patient in pain?: No Allergies nitrofurantoin Allergy (Mild, Verified 10/27/24 11:12) Hives Medications ???Medication ???Instructions ???Recorded ???Confirmed ???Type sertraline 25 mg tablet 25 mg PO DAILY anxiety #30 tabs 10/27/24 Rx levothyroxine 150 mcg tablet 150 mcg PO .COMPLEX hypothyorid 10/27/24 History multivit-min no.71-iron fum 28 cap PO 10/03/24 10/27/24 History mg-folate no.1 1 mg-dha 300 mg capsule (PNV-Merrifield) Last Menstrual Period: 08/12/24 Zika: Zika virus screening: Negative : No PFSH PFSH Medical History AMA (advanced maternal age) multigravida 35+ H/O gestational diabetes in prior , currently Supervision of high-risk History of oligohydramnios in prior , currently Previous gestational diabetes mellitus, antepartum Spotting in early Hx of recurrent urinary tract infection delivery delivered History of pre-term labor History of premature rupture of membranes (PPROM) History of prior with IUGR Thyroid disorder Anemia affecting IUGR (intrauterine growth restriction) in prior , Surgical History H/O dilation and curettage H/O section Campbell teeth extracted S/P Family History Father Diabetes Grandfather Diabetes Paternal Maternal Mother Seizures Social History adopted: Yes (13yrs old) household members: spouse and children housing: house number of children: 3 current occupational status: employed 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[employer] current 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/hazards: No pets and animals: Yes ( taking care of litter box) pets and animals: cat(s) and dog(s) history of recent travel: No sexually active: Yes Smoking Status: Never smoker alcohol intake: current alcohol intake frequency: holidays/special occasions only details: Not while substance use type: does not use well-balanced diet: daily or most days caffeine: No eating out: rarely or never during the past year weight has: remained stable what type of physical activity do you participate in: walking and weight training frequency: 3-4 times per week duration: 15-30 minutes/day fatou/christianity: Quaker seatbelt use: always do you feel safe at home: Yes additional social history: : Stephen - Management History 7 Elective abortions Hx Para 3 Spontaneous abortions 3 Hx # Term Pregnancies Ectopic pregnancies Hx # Pregnancies Multiple births # of living children 3 Past Pregnancies Del. Date Name GA/Weeks Outcome Route Bth Weight Infant Gen Labor Lgth Anesthesia Del Locatn Provider FOB 04/03/17 Antonina 40 live - full term 7lbs 12oz Female 3 days epi dural [facility] Dr. Myranda Mitchell 01/10/19 Raffy 36 live - 5lbs 12oz Male 0 spinal [place] [facility]er Stephen 11/19/20 5 spontaneous 08/22/21 Lieda 39 live - full term 7lbs 3oz Female spinal [facility] 07/16/23 5 spontaneous 04/21/24 11 spontaneous SM Delivery Date: 04/03/17 Last Updated by: Kim Olsen STAT c/s nuchal cord; distress Delivery Date: 01/10/19 Last Updated by: Kim Olsen PPROM, STAT C/S; IUGR; Oligo Delivery Date: 08/22/21 Last Updated by: Karina Chávez RLS Delivery Date: 04/21/24 Last Updated by: Alice Padilla RN D C, measuring 9w1d HPI Heartbeat Check Details: KARRI VILLAVICENCIO is a 34 year old who presents for routine OB visit. OB Visit MARGUERITE Calculator Estimated Delivery Date Method Current WG Current Estimate 05/16/25 LMP (Certain) 11w 2d Other Estimates 05/15/25 Ultrasound #1 11w 3d Expected Delivery Route/Plan plans repeat c/s Specific Issue/Plans Covid status: [] Flu vaccine: [] Tdap vaccine: [] Rhogam: [] LARC form signed: [] Problem list reviewed and u (more content not included)... Normal [facility] Platelet countOrdered By: Dread San on 10-27-2024 Platelets (Bld) [#/Vol] 195 10*3/uL 150-450 [facility] RBC Auto (Bld) [#/Vol]Ordere d By: Margo San on 10-27-2024 RBC (Bld) [#/Vol] 4.01 10*6/uL Low 4.2-5.4 [facility] Syphilis Antibodieson 2024 Syphilis Abs Non-Reactive Normal Nonreactive [facility] Comment on above: Performed By: #### L 501.9520, L506.0400 #### [facility] [address] [place], [address] T4 Free Directon 06-23-2025 T4 FREE DIRECT 1.20 ng/dL Normal 0.76-1.46 [facility] Comment on above: Order Comment: NIPT with Gender Performed By: #### L 501.9520, L506.0400 #### [facility] [address] [place], [address] T4 freeOrdered By: Margo steven on 10-27-2024 Free T4 [Mass/Vol] 1.20 ng/dL 0.76-1.46 [facility] TSH DL <= 0.005 mIU/L QnOrde red By: Margo San on 10-27-2024 TSH Qn 1.220 uIU/mL 0.300-4.200 [facility] Thyroid Stim Hormone (TSH)on 10-27-2024 TSH 1.220 uIU/mL Normal 0.300-4.200 [facility] Comment on above: Performed By: #### L 501.9520, L506.0400 #### [facility] [address] [place], [address] Type AND Screenon 10-27-2024 Ab SCREEN GEL Negative Normal [facility] Comment on above: Order Comment: PN Performed By: #### M 100.2200, L7000.1800 #### [facility] [address] [place], [address] Urine cultureOrdered By: Toño Madrid on 10-27-2024 Bacteria identified Cx Nom (U) Escherichia coli Abnormal [facility] White blood cell (WBC) count Ordered By: Margo San on 10-27-2024 WBC (Bld) [#/Vol] 7.8 10*3/uL 4.4-11.0 [facility] Chlamydia/GC LYLY aptimaon CHLAMY,NUC ACID Negative Normal Negative [facility] Comment on above: Performed By: #### L 7000.1800 #### [facility] [address] [place], [address] GC BY NUC ACID Negative Normal Negative [facility] Comment on above: Result Comment: Perf ormed at: =G - [facility] [address] [place], [place] [id number] Global Manager: Viky Flores MD, Phone: [phone] Performed By: #### L 7000.1800 #### [facility] [address] [place], [address] Chlamydia trachomatis rRNA d etection by probe and target amplification methodOrdered By: Margo San on 10-13-2024 C. trachomatis rRNA LYLY+probe Ql (Unsp spec) Negative Negative [facility] Neisseria gonorrhoeae nuclei c acid detection by amplified probe techniqueOrdered By: Margo San on 10-13-2024 N. gonorrhoeae DNA LYLY+probe Ql (Unsp spec) Negative Negative [facility] Comment on above: Performed at: =G - [facility] [id number] [place], [place] [id number] Director: Viky Flores MD, Phone: [phone] Pop [facility] Office Visit Reporton 10-13-2024 Pop Singer Office Visit Report [facility] [address], [address] [place] [address] OFFICE VISIT Date of Service: 10/13/24 MR#: [id number] Acct: [id number] Name: KARRI MARTIN Rep #: [id number] : 1990 Provider: EZEQUIEL Barker ams Age/Sex: 34/F Location: [facility] [place] Status: Signed Intake Vital Signs 05/19/24 11:13 10/13/24 08:22 10/13/24 08:23 Height 5 ft 4 in 5 ft 4 in 5 ft 4 in Weight: 163 lb 2 oz BMI 28.0 BP 122/74 H Intake Visit Reasons: *EST* NOB LMP 08/09, MARGUERITE 05/16 Rn Chronic Required: No Is patient in pain?: No Allergies nitrofurantoin Allergy (Mild, Verified 10/13/24 08:24) Hives Medications ???Medication ???Instructions ???Recorded ???Confirmed ???Type sertraline 25 mg tablet 25 mg PO DAILY anxiety #30 tabs 10/13/24 Rx levothyroxine 150 mcg tablet 150 mcg PO .COMPLEX hypothyorid 10/13/24 History multivit-min no.71-iron fum 28 cap PO 10/03/24 10/13/24 History mg-folate no.1 1 mg-dha 300 mg capsule (PNV-Merrifield) Last Menstrual Period: 08/12/24 Zika: Zika virus screening: Negative : No PFSH PFSH Medical History AMA (advanced maternal age) multigravida 35+ H/O gestational diabetes in prior , currently Supervision of high-risk History of oligohydramnios in prior , currently Previous gestational diabetes mellitus, antepartum Spotting in early Hx of recurrent urinary tract infection delivery delivered History of pre-term labor History of premature rupture of membranes (PPROM) History of prior with IUGR Thyroid disorder Anemia affecting IUGR (intrauterine growth restriction) in prior , Surgical History H/O dilation and curettage H/O section Campbell teeth extracted S/P Family History Father Diabetes Grandfather Diabetes Paternal Maternal Mother Seizures Social History adopted: Yes (13yrs old) household members: spouse and children housing: house number of children: 3 service: No current occupational status: employed 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[employer] current 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/hazards: No pets and animals: Yes ( taking care of litter box) pets and animals: cat(s) and dog(s) history of recent travel: No sexually active: Yes Smoking Status: Never smoker alcohol intake: current alcohol intake frequency: holidays/special occasions only details: Not while substance use type: does not use well-balanced diet: daily or most days caffeine: No eating out: rarely or never during the past year weight has: remained stable what type of physical activity do you participate in: walking and weight training frequency: 3-4 times per week duration: 15-30 minutes/day fatou/christianity: Quaker seatbelt use: always do you feel safe at home: Yes additional social history: : Stephen - Management History 7 Elective abortions Hx Para 3 Spontaneous abortions 3 Hx # Term Pregnancies Ectopic pregnancies Hx # Pregnancies Multiple births # of living children 3 Past Pregnancies Del. Date Name GA/Weeks Outcome Route Bth Weight Gen Labor Lgth Anesthesia Del Locatn Provider FOB 04/03/17 Antonina 40 live - full term 7lbs 12oz Female 3 days epi dural [facility] Dr. [facility] 01/10/19 Raffy 34 live - 5lbs 12oz Male 0 spinal [place] [facility] 11/19/20 5 spontaneous 08/22/21 Lieda 39 live - full term 7lbs 3oz Female spinal [facility] 07/16/23 5 spontaneous 04/21/24 11 spontaneous SM Delivery Date: 04/03/17 Last Updated by: Kim Olsen STAT c/s nuchal cord; distress Delivery Date: 01/10/19 Last Updated by: Kim Olsen PPROM, STAT C/S; IUGR; [place] Delivery Date: 08/22/21 Last Updated by: Karina Chávez [facility] Delivery Date: 04/21/24 Last Updated by: Alice Padilla, RN D C, measuring 9w1d HPI *EST* NOB LMP 4/5, MRAGUERITE 05/16 Details: KARRI VILLAVICENCIO is a 34 year old who presents for New OB visit. OB Visit MARGUERITE Calculator Estimated Delivery Date Method Current WG Current Estimate 05/16/25 LMP (Certain) 9w 2d Other Estimates 05/15/25 Ultrasound #1 9w 3d Comments: HIV: Urine Culture: Sequential Screen: NIPT Screen: Estimated Due Date: 05/16/25 Expected Delivery Route/Plan plans (more content not included)... Normal [facility] Bacteria Ur Culton 5 Bacteria identified Cx Nom (U) ORGANISM ID: 1 >=100,000 CFU/ml Escherichia coli ORGANISM ID: 1 (ESCHERICHIA COLI) ANTIBIOTIC INTERPRETATION PATRICE STATUS REFERENCE RANGE Ampicillin S <=2 F Susceptible <=8 , Intermediate >8 , Resistant >16 Cefazolin S <=4 F Susceptible 0-16 , Intermediate <0 or >16 , Resistant >16 For uncomplicated urinary tract infections, cefazolin results can be used to predict susceptibility or resistance to cephalexin. Ceftriaxone S <=1 F Susceptible <=1 , Intermediate >1 , Resistant >=4 Cefepime S <=1 F Susceptible <=2 , Susceptible-Dose Dependent >2 , Resistant >=16 Ertapenem S <=0.5 F Susceptible <=0.5 , Intermediate >.5 , Resistant >1 Meropenem S <=0.25 F Susceptible <=1 , Intermediate >1 , Resistant >2 Ampicillin/Sulbact S <=2 F Susceptible <=8 , Intermediate >8 , Resistant >16 Piperacillin/Tazobac S <=4 F Susceptible <16 , Susceptible-Dose Dependent >=16 , Resistant >=32 Gentamicin S <=1 F Susceptible <=2 , Intermediate >2 , Resistant >=8 Tobramycin S <=1 F Susceptible <4 , Intermediate >=4 , Resistant >=8 Trimeth sulfameth S <=20 F Susceptible <=40 , Resistant >40 Ciprofloxacin S <=0.25 F Susceptible <0.5 , Intermediate >=.5 , Resistant >=1 Nitrofurantoin S <=16 F Susceptible <=32 , Intermediate >32 , Resistant >64 Abnormal [facility] Comment on above: Performed By: #### 6 30-4 ####[facility] [id number] [facility] [address] [place] Soham 10-09-2024 CNOV Office Visit ([facility] ) ----- KARRI MARTIN ([id number]) 1990 F Date Time Provider Department 10/09/24 10:30 AM GUALBERTO HOPKINS [facility] During your visit today, we recorded the following information about you: Temperature Pulse Respiration Blood pressure 98.5 degrees 69/minute 18/minute 107/60 Weight 73 kg Gualberto Hopkins APRN.GRAIN THRESHER 10/09/2024 11:04 AM Signed [facility] Subjective Karri Villavicencio is a 34 year old female. Patient presents with: Urinary Problem: Burning, frequency, lower back pain, dysuria x 3 days HPI Urinary Tract Infections: - Dysuria x3 days. - Chronic history of UTIs, particularly during . - OB appointment scheduled for Sunday. : - Currently 8 weeks . - 7, Para 3. - Has two daughters and one son. Review of Systems Constitutional: Negative for fatigue and fever. Gastrointestinal: Negative for abdominal pain and vomiting. Genitourinary: Positive for dysuria, frequency and urgency. Negative for pelvic pain, vaginal bleeding, vaginal discharge and vaginal pain. Objective BP 107/60 Pulse 69 Temp 36.9 ?C (98.5 ?F) Resp 18 Wt 73 kg (160 lb 15 oz) LMP 05/24/2023 (Exact Date) SpO2 100% BMI 28.06 kg/m? PAST MEDICAL HISTORY Diagnosis Date Acquired hypothyroidism 12/17/2014 Hoshimoto's Anxiety 04/20/2014 Well adult exam 04/20/2014 Last done: 01/02/2019 PAST SURGICAL HISTORY Procedure Laterality Date SECTION HX N/A 2016 and 2021 PAST SURGICAL HISTORY OF 2005 laser surgery on bilater feet to remove warts ALLERGIES Macrobid [Nitrofurantoin Monohyd/M-Cryst] MEDICATIONS vit/iron fum/folic ac ( 1 + 1 ORAL) Take 1 tablet by mouth once daily. sertraline (ZOLOFT) 25 mg tablet Take 1 tablet by mouth once daily. levothyroxine (LEVOXYL) 150 mcg tablet Take 1 tablet by mouth once daily. Jadon-Sat and two on Sunday. Take on empty stomach. For Thyroid. cephALEXin (KEFLEX) 500 mg capsule Take 1 capsule by mouth two times a day for 7 days. FAMILY HISTORY Adopted: Yes Problem Relation Age of Onset Seizures Mother epiletic Diabetes Father Hypertension Father No Known Problems Sister No Known Problems Sister No Known Problems Brother No Known Problems Brother No Known Problems Brother No Known Problems Brother Diabetes Paternal Grandmother Hypertension Paternal Grandmother Diabetes Paternal Grandfather Coronary Artery Disease Paternal Grandfather over 50 Hypertension Paternal Grandfather No Known Problems Daughter No Known Problems Son Thyroid Paternal Uncle Social History Tobacco Use Smoking status: Never Smokeless tobacco: Never Vaping Use Vaping status: Never Used Substance Use Topics Alcohol use: Yes Comment: occasional wine Drug use: No Physical Exam Vitals and nursing note reviewed. Constitutional: Appearance: Normal appearance. Cardiovascular: Rate and Rhythm: Normal rate and regular rhythm. Pulses: Normal pulses. Heart sounds: Normal heart sounds. Pulmonary: Effort: Pulmonary effort is normal. Breath sounds: Normal breath sounds. Abdominal: General: Bowel sounds are normal. Tenderness: There is no abdominal tenderness. There is no right CVA tenderness or left CVA tenderness. Neurological: Mental Status: She is alert. {1. Burning with urination (R30.0) 2. Acute cystitis without hematuria (N30.00) - Dysuria and lower back pain present; history of recurrent UTIs, particularly during . - Currently 8 weeks ; last antibiotic treatment was in 2021 with Keflex during previous . - Urine culture ordered to identify causative organism; results expected by Sunday. - Initiated Keflex; prescription sent electronically to [facility]. - Follow-up with OB scheduled for Sunday. and Recording using Re-vinyl software for draft documentation of the visit was discussed with the patient/authorized car sales representative; all questions welcomed and answered. Patient/authorized car sales representative agreed to proceed History and Record Review External record(s) reviewed: prior outpatient record. Findings from review of outpatient records: Previous medical history Differential Diagnoses - Dysuria is more likely for the following reason(s): suggested by HANDP - cystitis is more likely for the following reason(s): suggested by HANDP - Pylonephritis is less likely for the following reason(s): HANDP not suggestive - acute abdomen is less likely for the following reason(s): HANDP not suggestive Disposition The patient was discharged. MDM patient well-appearing nontoxic in no acute distress presents with urinary tract infection. Positive for nitrates with symptoms and is 8 weeks . No concerns of ectopic no abdominal pain, pelvic pain. No concern of pyelonephritis patient sta (more content not included)... Normal [facility] UA DIP, URINE (POC)on 2024 BILIRUBIN UA (POCT) Negative Negative [facility] CLARITY UA (POCT) Clear [facility] COLOR UA (POCT) Yellow [facility] GLUCOSE UA (POCT) Negative Negative mg/dL [facility] Hemoglobin Ql (U) Negative Negative [facility] Interpretation and review of laboratory results Abnormal [facility] KETONE UA (POCT) Negative Negative mg/dL [facility] LEUKOCYTES UA (POCT) Negative Negative [facility] NITRITE UA (POCT) Positive Abnormal Negative [facility] PH UA (POCT) 7.5 4.5 - 8.0 [facility] Protein Ql (U) Negative Negative mg/dL [facility] SPECIFIC GRAVITY UA (POCT) 1.015 1.005 - 1.030 [facility] UROBILINOGEN UA (POCT) 0.2 Aida l E.U./dL [facility] Location:[address], [place], [place], [id number] [place] [address] POINT OF CARE [facility] TSH SerPl-aCncon 09-19-2024 TSH Qn 0.386 m[IU]/L Normal 0.270-4.200 [facility] Comment on above: Order Comment: Speci men Type: BLOOD SPECIMEN Ordering Facility: [facility] Address: [address] [place] [address] Result Comment: If t he patient is , TSH reference range varies by gestational period: First Trimester (weeks 9-12): 0.180-2.990 mIU/L Second Trimester: 0.110-3.980 mIU/L Third Trimester: 0.480-4.710 mIU/L Tanner Gardner et al. A Practical Approach for the Verifications and Determination of Site- and Trimester-Specific Reference Intervals for Thyroid Function tests in . Thyroid, 2019:29:3:412-420. Dieter Pisano, et al. 2017 Guidelines of the [place] [employer] Association for the Diagnosis and Management of Thyroid Disease during and the . Thyroid, 2017:27:3:315-389. Performed By: #### 5 7021-8 #### [facility] CLIA [id number] [address] [place] [address] [place] TSH SerPl-aCncon 07-21-2024 TSH Qn 0.378 m[IU]/L Normal 0.270-4.200 [facility] Comment on above: Order Comment: Speci men Type: BLOOD SPECIMEN Ordering Facility: [facility] Address: [address] [place] [address] Result Comment: If t he patient is , TSH reference range varies by gestational period: First Trimester (weeks 9-12): 0.180-2.990 mIU/L Second Trimester: 0.110-3.980 mIU/L Third Trimester: 0.480-4.710 mIU/L Tanner Gardner et al. A Practical Approach for the Verifications and Determination of Site- and Trimester-Specific Reference Intervals for Thyroid Function tests in . Thyroid, 2019:29:3:412-420. Dieter Pisano et al. 2017 Guidelines of the [place] [employer] for the Diagnosis and Management of Thyroid Disease during and the . Thyroid, 2017:27:3:315-389. Performed By: #### 3 016-3 #### [facility] CLIA [id number] [address] [place] [address] [place] Anticardiolipin IgG, IgMon 0 - ANTICARDIO IgG < 9 Normal 0-14 [facility] Comment on above: Result Comment: Nega tive: <15 Indeterminate: 15 - 20 Low-Med Positive: >20 - 80 High Positive: >80 Performed By: #### L 3100.8410, L3410.2000, L4500.0100 #### [facility] [address] [place], [address] Anticardio.IgM 12 MPL U/mL Normal 0-12 [facility] Comment on above: Result Comment: Nega tive: <13 Indeterminate: 13 - 20 Low-Med Positive: >20 - 80 High Positive: >80 Performed at: - [facility] [id number] Global Manager: Emery Fenton MD, Phone: [phone] Performed at: - [facility] [address] [id number] Global Manager: Babatunde Fuller PhD, Phone: [phone] Performed By: #### L 3100.8410, L3410.1999, L4500.0100 #### [facility] [address] [place], [place], [address] Beta-2 Glycoprot IgG, A, 07-18-2024 B2 GLYCO I IGA <9 Normal 0-25 [facility] Comment on above: Result Comment: Resu lt Units: GPI IgA units The reference interval reflects a 3SD or 99th percentile interval, which is thought to represent a potentially clinically significant result in accordance with the International Consensus Statement on the classification criteria for definitive antiphospholipid syndrome (APS). J Thromb Haem 2006;4:295-306. Performed By: #### L 3100.8410, L3410, L4500.0100 #### [facility] [address] [place], [place], [address] B2 GLYCO I IGG <9 Normal 0-20 [facility] Comment on above: Result Comment: Resu lt Units: GPI IgG units The reference interval reflects a 3SD or 99th percentile interval, which is thought to represent a potentially clinically significant result in accordance with the International Consensus Statement on the classification criteria for definitive antiphospholipid syndrome (APS). J Thromb Haem 2006;4:295-306. Performed By: #### L 3100.8410, L3410.1999, L4500.0100 #### [facility] [address] [place], [place], [address] B2 GLYCO I IGM <9 Normal 0-32 [facility] Comment on above: Result Comment: Resu lt Units: GPI IgM units The reference interval reflects a 3SD or 99th percentile interval, which is thought to represent a potentially clinically significant result in accordance with the International Consensus Statement on the classification criteria for definitive antiphospholipid syndrome (APS). J Thromb Haem 2006;4:295-306. Performed By: #### L 3100.8410, L3410.1999, L4500.0100 #### [facility] [address] [place], [address] Lupus Anticoagulant Compon 0 07-18-2024 aPTT Coag (Bld) [Time] 33.0 s Normal 0.0-43.5 [facility] Comment on above: Performed By: #### L 3100.8410, L3410.1999, L4500.0100 #### [facility] [address] [place], [address] DILUTE PT (dPT) 36.5 sec Normal 0.0-47.6 [facility] Comment on above: Performed By: #### L 3100.8410, L3410.1999, L4500.0100 #### [facility] [address] [place], [address] dPT Conf. Ratio 1.14 Ratio Normal 0.00-1.34 [facility] Comment on above: Performed By: #### L 3100.8410, L3410.1999, L4500.0100 #### [facility] [address] [place], [address] DRVVT 33.7 sec Normal 0.0-47.0 [facility] Comment on above: Performed By: #### L 3100.8410, L3410.1999, L4500.0100 #### [facility] [address] [place], [address] Interpretation Comment: Normal . [facility] Comment on above: Result Comment: No l upus anticoagulant was detected. Performed By: #### L 3100.8410, L3410.1999, L4500.0100 #### [facility] [address] [place], [place], [address] THROMBIN TIME 17.3 sec Normal 0.0-23.0 [facility] Comment on above: Performed By: #### L 3100.8410, L3410.1999, L4500.0100 #### [facility] [address] [place], [address] Beta 2 glycoprotein 1 IgA Ql (S)Ordered By: Smiley Madrid on 07-16-2024 Zdlz-ytcn-6-Glycoprotei n I IgA Ab <9 0-25 [facility] Comment on above: Result Units: GPI Ig A unitsThe reference interval reflects a 3SD or 99th percentileinterval, which is thought to represent a potentiallyclinically significant result in accordance with theInternational Consensus Statement on the classificationcriteria for definitive antiphospholipid syndrome (APS). JThromb Haem 2006;4:295-306. Beta 2 glycoprotein 1 IgG Ql (S)Ordered By: Smiley Madrid on 07-16-2024 Zhof-hjrq-1-Glycoprotei n I IgG Ab <9 0-20 [facility] Comment on above: Result Units: GPI Ig G unitsThe reference interval reflects a 3SD or 99th percentileinterval, which is thought to represent a potentiallyclinically significant result in accordance with theInternational Consensus Statement on the classificationcriteria for definitive antiphospholipid syndrome (APS). JThromb Haem 2006;4:295-306. Beta 2 glycoprotein 1 IgM Ql (S)Ordered By: Smiley Madrid on 07-16-2024 Lybc-iiaw-2-Glycoprotei n I IgM Ab <9 0-32 [facility] Comment on above: Result Units: GPI Ig M unitsThe reference interval reflects a 3SD or 99th percentileinterval, which is thought to represent a potentiallyclinically significant result in accordance with theInternational Consensus Statement on the classificationcriteria for definitive antiphospholipid syndrome (APS). JThromb Haem 2006;4:295-306. Cardiolipin IgG IA Qn (S)Ord ered By: Smiley Madrid on 07-16-2024 Anti-Cardiolipin IgG Antibody < 9 GPL U/mL 0-14 [facility] Comment on above: Negative: <15 Indete rminate: 15 - 20 Low-Med Positive: >20 - 80 High Positive: >80 Dilute Mehran's viper venom timeOrdered By: Smiley Madrid on 07-16-2024 dRVVT Coag (PPP) [Time] 33.7 s 0.0-47.0 [facility] Dilute prothrombin time rati o confirmationOrdered By: Smiley Madrid on 07-16-2024 Prothrombin Time Ratio 1.14 Ratio 0.00-1.34 [facility] Interpretation of lupus anti coagulant assayOrdered By: Smiley Madrid on 07-16-2024 Lupus Anticoagulant Interpretation Comment: . [facility] Comment on above: No lupus anticoagula nt was detected. Lupus anticoagulant neutrali zation dilute phospholipid time in platelet poor plasmaOrdered By: Smiley Madrid on 07-16-2024 Prothrombin Time Diluted 36.5 sec 0.0-47.6 [facility] Lupus anticoagulant-sensitiv e activated partial thromboplastin timeOrdered By: Smiley Madrid on 07-16-2024 Lupus Anticoagulant APTT 33.0 sec 0.0-43.5 [facility] Serum beta 2 glycoprotein 1 IgA antibody detectionOrdered By: Smiley Madrid on 07-16-2024 Beta 2 glycoprotein 1 IgA Ql (S) <9 0-25 [facility] Comment on above: Result Units: GPI Ig A unitsThe reference interval reflects a 3SD or 99th percentileinterval, which is thought to represent a potentiallyclinically significant result in accordance with theInternational Consensus Statement on the classificationcriteria for definitive antiphospholipid syndrome (APS). JThromb Haem 2006;4:295-306. Serum beta 2 glycoprotein 1 IgG antibody detectionOrdered By: Smiley Madrid on 07-16-2024 Beta 2 glycoprotein 1 IgG Ql (S) <9 0-20 [facility] Comment on above: Result Units: GPI Ig G unitsThe reference interval reflects a 3SD or 99th percentileinterval, which is thought to represent a potentiallyclinically significant result in accordance with theInternational Consensus Statement on the classificationcriteria for definitive antiphospholipid syndrome (APS). JThromb Haem 2006;4:295-306. Serum beta 2 glycoprotein 1 IgM antibody detectionOrdered By: Smiley Madrid on 07-16-2024 Beta 2 glycoprotein 1 IgM Ql (S) <9 0-32 [facility] Comment on above: Result Units: GPI Ig M unitsThe reference interval reflects a 3SD or 99th percentileinterval, which is thought to represent a potentiallyclinically significant result in accordance with theInternational Consensus Statement on the classificationcriteria for definitive antiphospholipid syndrome (APS). JThromb Haem 2006;4:295-306. Serum cardiolipin IgG antibo dy assay by immunoassay (units/volume)Ordered By: Smiley Madrid on 07-16-2024 Cardiolipin IgG IA Qn (S) < 9 GPL U/mL 0-14 [facility] Comment on above: Negative: <15 Indete rminate: 15 - 20 Low-Med Positive: >20 - 80 High Positive: >80 Serum cardiolipin IgM antibo dy assayOrdered By: Smiley Madrid on 07-16-2024 Anti-Cardiolipin IgM Antibody 12 MPL U/mL 0-12 [facility] Comment on above: Negative: <13 Indete rminate: 13 - 20 Low-Med Positive: >20 - 80 High Positive: >80Performed at: [facility] [email or web address] [id number] Director: Emery Fenton MD, Phone: [phone] at: [facility] [email or web address] [id number] Director: Babatunde Fuller PhD, Phone: [phone] Thrombin timeOrdered By: Toño Madrid on 07-16-2024 Thrombin time Coag (PPP) [Time] 17.3 sec 0.0-23.0 [facility] Thrombin time Coag (PPP) [Ti me]Ordered By: Smiley Madrid on 07-16-2024 Thrombin Time 17.3 sec 0.0-23.0 [facility] dRVVT Coag (PPP) [Time]Order ed By: Smiley Madrid on 07-16-2024 Dilute Mehran Viper Venom (Lupus) 33.7 sec 0.0-47.0 [facility] Rick 05-20-2024 CNPN Telephone (FAMPWS) ----- SAMI CARRKARRI COOL ([id number]) 1990 F Date Time Provider Department 05/20[facility]24 [facility] your visit today, we recorded the following information about you: Cain Pretty MD 05/20/2024 9:30 PM Signed Let patient know her thyroid lab is showing she is getting too much replacement know. Have her go back to taking the 150 mcg table one a day Mon-sun and two on Sunday. Order placed to have TSH rechecked in 2 months. Komal Sotelo OCCA 05/21/2024 8:35 AM Signed TC to patient who verbalized understanding of providers message below. DESTINI Strickland Allergies As of Date: 05/20/2024 Noted Allergy Reaction MACROBID (NITROFURANTOIN MONOHYD/*05/29/2022 14 - Other: See Comments Comments: Possible urticaria. (Started shortly after finishing antibiotic) Date Reviewed: 01/30/2024 Reviewed by: Cain Pretty MD - Fully Assessed Reason for Visit: Results [95] Primary Visit Diagnosis:Acquired hypothyroidism [E03.9] Order(s):levothyroxine (LEVOXYL) 150 mcg tabletTake 1 tablet by mouth once daily. Jadon-Sat and two on Sunday. Take on empty stomach. For Thyroid.Disp: 36 tabletRfl: 5 THYROID STIMULATING HORMONE [SQTSH] Order #: [id number] FUTURE Prescriptions as of 05/21/2024 - levothyroxine (LEVOXYL) 150 mcg tablet Take 1 tablet by mouth once daily. Jadon-Sat and two on Sunday. Take on empty stomach. For Thyroid. - sertraline (ZOLOFT) 25 mg tablet Take 1 tablet by mouth once daily. Problem List As Of Date 05/20/2024 Noted Resolved Routine gynecological examination [Z01.419] 04/20/2014 Well adult exam [Z00.00] 04/20/2014 Anxiety [F41.9] 04/20/2014 Acquired hypothyroidism [E03.9] 12/17/2014 Encounter for screening for diabetes mellitus [*02/01/2016 Encounter for screening for cardiovascular diso*02/01/2016 Agitation [R45.1] 09/18/2019 Medication management [Z79.899] 01/18/2022 Prescriptions ordered this encounter Disp Refills Start End LEVOTHYROXINE 150 MCG TABLET 36 t* 5 05/20/2024 Class: Med Update Route: ORAL Sig: Take 1 tablet by mouth once daily. Jadon-Sun and two on Sunday. Take on empty stomach. For Thyroid. Medications Discontinued During This Encounter Prescriptions - levothyroxine (LEVOXYL) 150 mcg tablet (Discontinued) Take 1 tablet by mouth once daily. Jadon-Fri, 1.5 on Sun and two on Sunday. Take on empty stomach. For Thyroid. Encounter Status:Closed by KOMAL SOTELO on 05/21/24 Normal [facility] Pop Singer Office Visit Reporton 05-19-2024 Pop Singer Office Visit Report [facility] [address], [address] [place] [address] OFFICE VISIT Date of Service: 05/19/24 MR#: [id number] Acct: [id number] Name: KARRI MARTIN Sylvester Rep #: [id number] : 1990 Provider: Dr. Smiley herrmann MD Age/Sex: 34/F Location: [facility] Status: Signed Intake Vital Signs 04/21/24 12:17 05/19/24 11:13 Height 5 ft 4 in 5 ft 4 in Weight: 162 lb BMI 27.8 BP 121/83 H Intake Visit Reasons: D C FU Is patient in pain?: Yes (having some cramping especially during the evening) Allergies nitrofurantoin Allergy (Mild, Verified 05/19/24 11:14) Hives Medications ???Medication ???Instructions ???Recorded ???Confirmed ???Type sertraline 25 mg tablet 25 mg PO DAILY anxiety #30 tabs 10/18/22 05/19/24 Rx PNV 178-FA 180 mcg-om3 35 mg-dha tab PO DAILY 07/13/23 05/19/24 History 25 mg-epa 5 mg-fish oil chew tablet levothyroxine 150 mcg tablet 150 mcg PO .COMPLEX hypothyorid 03/21/24 05/19/24 History Is last menstrual period known: No Post menopausal: No Patient : No : No PFSH Medical History (Updated 05/19/24 @ 11:[address] Smiley Madrid MD) AMA (advanced maternal age) multigravida 35+ H/O gestational diabetes in prior , currently Supervision of high-risk History of oligohydramnios in prior , currently Previous gestational diabetes mellitus, antepartum Spotting in early Hx of recurrent urinary tract infection delivery delivered History of pre-term labor History of premature rupture of membranes (PPROM) History of prior with IUGR Thyroid disorder Anemia affecting IUGR (intrauterine growth restriction) in prior , Surgical History (Updated 05/19/24 @ 11:16 by Bulmaro Ocampo) H/O dilation and curettage H/O section Campbell teeth extracted S/P Family History Father Diabetes Grandfather Diabetes Mother Seizures Social History adopted: Yes (13yrs old) household members: spouse and children housing: house number of children: 3 current occupational status: employed 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[employer] current 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/hazards: No pets and animals: Yes ( taking care of litter box) pets and animals: cat(s), dog(s) and other details: rabbit history of recent travel: No sexually active: Yes Smoking Status: Never smoker alcohol intake: current alcohol intake frequency: holidays/special occasions only details: Not while substance use type: does not use well-balanced diet: daily or most days caffeine: Yes Type: coffee Number of servings: 1 and tea Number of servings: 1 eating out: rarely or never during the past year weight has: increased > 10 lbs what type of physical activity do you participate in: bicycling, weight training and additional details: yuni frequency: 3-4 times per week duration: 15-30 minutes/day fatou/christianity: Quaker seatbelt use: always do you feel safe at home: Yes additional social history: : Stephen - Management HPI D Kapil FU Details: KARRI VILLAVICENCIO is a 34 year old who presents for follow up after msicarriage. she has done well, minimal bleeding. History 6 Elective abortions Hx Para 3 Spontaneous abortions 3 Hx # Term Pregnancies Ectopic pregnancies Hx # Pregnancies Multiple births # of living children 3 Past Pregnancies Del. Date Name GA/Weeks Outcome Route Bth Weight Infant Gen Labor Lgth Anesthesia Del Locatn Provider FOB 04/03/17 Antonina 40 live - full term 7lbs 12oz Female 3 days epi dural [facility] Dr[facility] Whitmore [facility] 01/10/19 Raffy 36 live - 5lbs 12oz Male 0 spinal [place] Whyte huber [facility] 11/19/20 5 spontaneous 08/22/21 Lieda 39 live - full term 7lbs 3oz Female spinal [facility] Daniellaaly [facility] 07/16/23 5 spontaneous 04/21/24 11 spontaneous SM Delivery Date: 04/03/17 Last Updated by: Kim Olsen STAT c/s nuchal cord; distress Delivery Date: 01/10/19 Last Updated by: Kim Olsen PPROM, STAT C/S; IUGR; [place] Delivery Date: 08/22/21 Last Updated by: Karina Chávez RLTCS Delivery Date: 04/21/24 Last Updated by: YIN Tabares C, measuring 9w1d ROS Const Constitutional: Denies fatigue, fever(s), headache(s), increased appetite, poor appetite, weight gain or weight loss GI GI: Reports as per HPI; Denies abdominal pain, constipation, nausea or vomiting G (more content not included)... Normal [facility] T4 Free SerPl-mCncon 025 Free T4 [Mass/Vol] 1.6 ng/dL Normal 0.9-1.7 [facility] Comment on above: Order Comment: Speci men Type: BLOOD SPECIMEN Ordering Facility: [facility] Address: [address] [id number] Performed By: #### 3 024-7 #### [facility] CLIA [id number] [address] [place] [address] [place] TSH SerPl-aCncon 05-19-2024 TSH Qn 0.184 m[IU]/L Low 0.270-4.200 [facility] Comment on above: Order Comment: Speci men Type: BLOOD SPECIMEN Ordering Facility: [facility] Address: [address] [place] [address] Result Comment: If t he patient is , TSH reference range varies by gestational period: First Trimester (weeks 9-12): 0.180-2.990 mIU/L Second Trimester: 0.110-3.980 mIU/L Third Trimester: 0.480-4.710 mIU/L Tanner Gardner et al. A Practical Approach for the Verifications and Determination of Site- and Trimester-Specific Reference Intervals for Thyroid Function tests in . Thyroid, 2019:29:3:412-420. Dieter Pisano, et al. 2017 Guidelines of the [place] [employer] for the Diagnosis and Management of Thyroid Disease during and the . Thyroid, 2017:27:3:315-389. Performed By: #### 3 016-3 #### [facility] CLIA [id number] [address] [place] [address] [place] Miscellaneous Lab Procedureo n 05-05-2024 [facility] [place] Normal [facility] Comment on above: Order Comment: [id number] 8TSH R AB Result Comment: TEST RESULTS LIMITS TSH Receptor Antibody (TBII) <0.3 U/L Reference Range: Antibody Titer: <1.0 U/L = Negative 1.1 - 1.5 U/L = Equivocal >1.5 U/L = Positive TESTING PERFORMED AT [facility]. ORIGINAL REPORT ON FILE IN LAB CONTAINS ADDITIONAL TEST SITE INFORMATION. Performed By: #### M 100.2200, L7000.1800 #### [facility] [address] [place], [place], [address] Anticardiolipin IgG, IgMon 1 06-24-2023 ANTICARDIO IgG < 9 Normal 0-14 [facility] Comment on above: Result Comment: Nega tive: <15 Indeterminate: 15 - 20 Low-Med Positive: >20 - 80 High Positive: >80 Performed By: #### L 801.1541, L3410.2000, L4500.0100, L3100.8410 #### [facility] [address] [place], [place], [id number] Anticardio.IgM 13 MPL U/mL High 0-12 [facility] Comment on above: Result Comment: Nega tive: <13 Indeterminate: 13 - 20 Low-Med Positive: >20 - 80 High Positive: >80 Performed at: [facility] [id number] Global Manager: Emery Fenton MD, Phone: [phone] Performed at: [facility] [id number] Global Manager: Babatunde Fuller PhD, Phone: [phone] Performed By: #### L 801.1541, L3410.1999, L4500.0100, L3100.8410 #### [facility] [address] [place], [place], [address] Beta-2 Glycoprot IgG, A, 04-23-2024 B2 GLYCO I IGA <9 Normal 0-25 [facility] Comment on above: Result Comment: Resu lt Units: GPI IgA units The reference interval reflects a 3SD or 99th percentile interval, which is thought to represent a potentially clinically significant result in accordance with the International Consensus Statement on the classification criteria for definitive antiphospholipid syndrome (APS). J Thromb Haem 2006;4:295-306. Performed By: #### M 100.2200, L7000.1800 #### [facility] [address] [place], [address] B2 GLYCO I IGG <9 Normal 0-20 [facility] Comment on above: Result Comment: Resu lt Units: GPI IgG units The reference interval reflects a 3SD or 99th percentile interval, which is thought to represent a potentially clinically significant result in accordance with the International Consensus Statement on the classification criteria for definitive antiphospholipid syndrome (APS). J Thromb Haem 2006;4:295-306. Performed By: #### M 100.2200, L7000.1800 #### [facility] [address] [place], [address] B2 GLYCO I IGM <9 Normal 0-32 [facility] Comment on above: Result Comment: Resu lt Units: GPI IgM units The reference interval reflects a 3SD or 99th percentile interval, which is thought to represent a potentially clinically significant result in accordance with the International Consensus Statement on the classification criteria for definitive antiphospholipid syndrome (APS). J Thromb Haem 2006;4:295-306. Performed By: #### M 100.2200, L7000.1800 #### [facility] [address] [place], [address] Lupus Anticoagulant Compon 1 06-24-2023 aPTT Coag (Bld) [Time] 34.6 s Normal 0.0-43.5 [facility] Comment on above: Performed By: #### M 100.2200, L7000.1800 #### [facility] [address] [place], [address] DILUTE PT (dPT) 38.2 sec Normal 0.0-47.6 [facility] Comment on above: Performed By: #### M 100.2200, L7000.1800 #### [facility] [address] [place], [address] dPT Conf. Ratio 1.03 Ratio Normal 0.00-1.34 [facility] Comment on above: Performed By: #### M 100.2200, L7000.1800 #### [facility] [address] [place], [address] DRVVT 29.8 sec Normal 0.0-47.0 [facility] Comment on above: Performed By: #### M 100.2200, L7000.1800 #### [facility] [address] [place], [address] Interpretation Comment: Normal . [facility] Comment on above: Result Comment: No l upus anticoagulant was detected. Performed By: #### M 100.2200, L7000.1800 #### [facility] [address] [place], [address] THROMBIN TIME 16.0 sec Normal 0.0-23.0 [facility] Comment on above: Performed By: #### M 100.2200, L7000.1800 #### [facility] [address] [place], [address] Pathology Specimen OBon 04-06 PATH. Spec OB SEE PATHOLOGY REPORT Normal [facility] Comment on above: Order Comment: Comme nts: collected in OR, suction D and C Send Specimen For (Specify): Anora Chromosomal Study Time of Procedure: 1431 Date of Procedure: 04/21/24 Reason specimen being sent to pathology (Hx/complications): missed Type of specimen: Demise Type of procedure performed: D C Result Comment: Spec imen submitted to Anatomical Pathology Department for testing. Performed By: #### L 350.1800 #### [facility] [address] [place], [address] Absolute neutrophil countOrd ered By: Smiley Madrid on 04-21-2024 Neutrophils (Bld) [#/Vol] 4.0 10*3/uL 2.0-7.7 [facility] Basophil percentageOrdered B y: Smiley Madrid on 04-21-2024 Basophils/100 WBC (Bld) 0.3 % 0-1 [facility] Beta 2 glycoprotein 1 IgA Ql (S)Ordered By: Smiley Madrid on 04-21-2024 Uwdv-mkbl-6-Glycoprotei n I IgA Ab <9 0-25 [facility] Comment on above: Result Units: GPI Ig A unitsThe reference interval reflects a 3SD or 99th percentileinterval, which is thought to represent a potentiallyclinically significant result in accordance with theInternational Consensus Statement on the classificationcriteria for definitive antiphospholipid syndrome (APS). JThromb Haem 2006;4:295-306. Beta 2 glycoprotein 1 IgG Ql (S)Ordered By: Smiley Madrid on 04-21-2024 Wwom-hhox-9-Glycoprotei n I IgG Ab <9 0-20 [facility] Comment on above: Result Units: GPI Ig G unitsThe reference interval reflects a 3SD or 99th percentileinterval, which is thought to represent a potentiallyclinically significant result in accordance with theInternational Consensus Statement on the classificationcriteria for definitive antiphospholipid syndrome (APS). JThromb Haem 2006;4:295-306. Beta 2 glycoprotein 1 IgM Ql (S)Ordered By: Smiley Madrid on 04-21-2024 Qpzw-jniu-7-Glycoprotei n I IgM Ab <9 0-32 [facility] Comment on above: Result Units: GPI Ig M unitsThe reference interval reflects a 3SD or 99th percentileinterval, which is thought to represent a potentiallyclinically significant result in accordance with theInternational Consensus Statement on the classificationcriteria for definitive antiphospholipid syndrome (APS). JThromb Haem 2006;4:295-306. CBC W/Diff, Automatedon - Absolute Lymph 1.72 X10 3/uL Normal 0.83-4.51 [facility] Comment on above: Performed By: #### M 100.2200, L7000.1800 #### [facility] [address] [place], [place], [address] Absolute Neut 4.0 X10 3/uL Normal 2.0-7.7 [facility] Comment on above: Performed By: #### M 100.2200, L7000.1800 #### [facility] [address] [place], [address] Basophils/100 WBC (Bld) 0.3 % Normal 0-1 [facility] Comment on above: Performed By: #### M 100.2200, L7000.1800 #### [facility] [address] [place], [address] Eosinophils/100 WBC (Bld) 1.6 % Normal 0-5 [facility] Comment on above: Performed By: #### M 100.2200, L7000.1800 #### [facility] [address] [place], [address] Erythrocyte distribution width (RBC) [Ratio] 13.2 % Normal 11.6-14.6 [facility] Comment on above: Performed By: #### M 100.2200, L7000.1800 #### [facility] [address] [place], [address] Hematocrit (Bld) [Volume fraction] 38.0 % Normal 37-47 [facility] Comment on above: Performed By: #### M 100.2200, L7000.1800 #### [facility] [address] [place], [address] Hemoglobin (Bld) [Mass/Vol] 12.6 g/dL Normal 12.0-15.0 [facility] Comment on above: Performed By: #### M 100.2200, L7000.1800 #### [facility] [address] [place], [address] IG% 0.300 Normal 0.0-0.9 [facility] Comment on above: Result Comment: IG% - Immature Granulocytes (promyelocytes, myelocytes and metamyelocytes) > 1% indicates that a LEFT SHIFT is Present. Performed By: #### M 100.2200, L7000.1800 #### [facility] [address] [place], [address] Lymphocytes/100 WBC (Bld) 27.6 % Normal 19-41 [facility] Comment on above: Performed By: #### M 100.2200, L7000.1800 #### [facility] [address] [place], [address] MCH (RBC) [Entitic mass] 30.2 pg Normal 27.0-32.0 [facility] Comment on above: Performed By: #### M 100.2200, L7000.1800 #### [facility] [address] [place], [address] MCHC (RBC) [Mass/Vol] 33.2 g/dL Normal 32-36 [facility] Comment on above: Performed By: #### M 100.2200, L7000.1800 #### [facility] [address] [place], [address] MCV (RBC) [Entitic vol] 91.1 fL Normal 81-99 [facility] Comment on above: Performed By: #### M 100.2200, L7000.1800 #### [facility] [address] [place], [address] Monocytes/100 WBC (Bld) 5.8 % Normal 0-10 [facility] Comment on above: Performed By: #### M 100.2200, L7000.1800 #### [facility] [address] [place], [address] Neutrophils/100 WBC (Bld) 64.4 % Normal 47-70 [facility] Comment on above: Performed By: #### M 100.2200, L7000.1800 #### [facility] [address] [place], [address] Nucleated RBC (Bld) [#/Vol] 0 10*3/uL Normal 0-5 [facility] Comment on above: Performed By: #### M 100.2200, L7000.1800 #### [facility] [address] [place], [address] Platelet mean volume (Bld) [Entitic vol] 10.8 fL Normal 6.2-12.0 [facility] Comment on above: Performed By: #### M 100.2200, L7000.1800 #### [facility] [address] [place], [address] Platelets (Bld) [#/Vol] 191 10*3/uL Normal 150-450 [facility] Comment on above: Performed By: #### M 100.2200, L7000.1800 #### [facility] [address] [place], [address] RBC (Bld) [#/Vol] 4.17 10*6/uL Low 4.2-5.4 [facility] Comment on above: Performed By: #### M 100.2200, L7000.1800 #### [facility] [address] [place], [address] RDW SD 44.3 fl High 35.1-43.9 [facility] Comment on above: Performed By: #### M 100.2200, L7000.1800 #### [facility] [address] [place], [address] WBC (Bld) [#/Vol] 6.2 10*3/uL Normal 4.4-11.0 [facility] Comment on above: Performed By: #### M 100.2200, L7000.1800 #### [facility] [address] [place], [address] Cardiolipin IgG IA Qn (S)Ord ered By: Smiley Madrid on 04-21-2024 Anti-Cardiolipin IgG Antibody < 9 GPL U/mL 0-14 [facility] Comment on above: Negative: <15 Indete rminate: 15 - 20 Low-Med Positive: >20 - 80 High Positive: >80 Dilute prothrombin time rati o confirmationOrdered By: Smiley Madrid on 04-21-2024 Prothrombin Time Ratio 1.03 Ratio 0.00-1.34 [facility] Direct serum free thyroxine (FT4) measurementOrdered By: Smiley Madrid on 04-21-2024 Free T4 [Mass/Vol] 1.65 ng/dL High 0.76-1.46 [facility] Discharge Instructionon 04-06 Discharge Instruction [facility] Medical Records Department [address] [place] [address] Instructions for Home/Discharge Instructions 04/21/24 1502 MR#: [id number] Acct: [id number] Name: KARRI MARTIN Rep #: [id number] : 1990 34 From: Smiley Madrid MD PCP: Dr. Cain Pretty MD Status:REG [facility] Discharge Instructions Diet Discharge Diet: No restrictions DC O2, CPAP, BIPAP needs Additional Home O2 Discharge instructions: No Dressing / Incision Discharge Activity: Return to Normal Activity, May Shower and May Take a Tub Bath (after 1 week) May resume sexual activity in: 1-2 weeks Weight Bearing Status: Weight bearing as tolerated Lifting Restrictions: none Dressing / Incision Call your doctor if you observe: Fever of 101 or Higher, Using more than 1 pad per hour, Shortness of breath and Uncontrolled pain Follow Up Care Please Follow Up With: Smiley Madrid MD When: Call [phone] to schedule appointment. Test Results: Test results from this visit will be discussed in further detail at your follow-up appointment, if applicable. Discharge Plan Admission Attending Provider: Smiley Madrid Primary Care Provider: Cain Pretty Instructions Print Language: Kiswahili Discharge Orders/Prescriptions Prescriptions: No Action PNV no.[id number]-epa-fis h 180 mcg-35 mg- 25 mg-5 mg tablet,chewable PO DAILY ondansetron 4 mg tablet,disintegrating 4 mg PO Q8H PRN (Reason: nausea and vomiting) Qty: 60 3RF levothyroxine 150 mcg tablet 150 mcg PO .COMPLEX Rx Instructions: 150 mcg orally, 2 tabs Sunday's; 1.5 tabs - Sunday's, 1 tab Sunday - Sunday sertraline 25 mg tablet 25 mg PO DAILY Qty: 30 3RF Referrals / Follow Up: Cain Pretty MD [Primary Care Provider] - Disposition Disposition (needs filled in before D/C Order can be placed): Home, Self Care 04/21/24 1502 Smiley Madrid MD CC: Dr. Cain Pretty MD Signed Normal [facility] Eosinophil percentageOrdered By: Smiley Madrid on 04-21-2024 Eosinophils/100 WBC (Bld) 1.6 % 0-5 [facility] Erythrocyte distribution wid th ratioOrdered By: Smiley Madrid on 04-21-2024 Erythrocyte distribution width (RBC) [Ratio] 13.2 % 11.6-14.6 [facility] Erythrocyte distribution wid th standard deviationOrdered By: Smiley Madird on 04-21-2024 Erythrocyte distribution width (RBC) [Entitic vol] 44.3 fL High 35.1-43.9 [facility] Hematocrit Auto (Bld) [Volum e fraction]Ordered By: Smiley Madrid on 04-21-2024 Hematocrit (Bld) [Volume fraction] 38.0 % 37-47 [facility] Hemoglobin measurementOrdere d By: Smiley Madrid on 04-21-2024 Hemoglobin (Bld) [Mass/Vol] 12.6 g/dL 12.0-15.0 [facility] Immature granulocytes/100 WB C Auto (Bld)Ordered By: Smiley Madrid on 04-21-2024 Immature granulocytes/100 WBC (Bld) 0.300 % 0.0-0.9 [facility] Comment on above: IG% - Immature Granu locytes (promyelocytes, myelocytes and metamyelocytes) > 1% indicates that a LEFT SHIFT is Present. Interpretation of lupus anti coagulant assayOrdered By: Smiley Madrid on 04-21-2024 Lupus Anticoagulant Interpretation Comment: . [facility] Comment on above: No lupus anticoagula nt was detected. Lupus anticoagulant neutrali zation dilute phospholipid time in platelet poor plasmaOrdered By: Smiley Madrid on 04-21-2024 Prothrombin Time Diluted 38.2 sec 0.0-47.6 [facility] Lupus anticoagulant-sensitiv e activated partial thromboplastin timeOrdered By: Smiley Madrid on 04-21-2024 Lupus Anticoagulant APTT 34.6 sec 0.0-43.5 [facility] Lymphocytes Auto (Unsp spec) [#/Vol]Ordered By: Smiley Madrid on 04-21-2024 Lymphocytes (Bld) [#/Vol] 1.72 10*3/uL 0.83-4.51 [facility] Lymphocytes/100 WBC Auto (Un sp spec)Ordered By: Smiley Madrid on 04-21-2024 Lymphocytes/100 WBC (Bld) 27.6 % 19-41 [facility] MCV (mean corpuscular volume ) determinationOrdered By: Smiley Madrid on 04-21-2024 MCV (RBC) [Entitic vol] 91.1 fL 81-99 [facility] MR/POSTOP.Sherita 04-21-2024 MR/POSTOP.[facility] Medical Records Department [address] [place] [address] Anesthesia Postop Eval I 04/21/24 1513 MR#: [id number] Acct: [id number] Name: KARRI MARTIN Rep #: [id number] : 1990 34 From: Heath Truong MD PCP: Dr. Cain Pretty MD Status:REG SDC Y Race: C Location: [place] [address] Anesthesia: Postop Eval I Current Vital Signs Temperature: 97.3 F Pulse Rate: 69 Blood Pressure: 116/76 Respiratory Rate: 16 Pulse Ox: 100 Oxygen Delivery Method: Room Air Assessment Airway patent: Yes Spontaneous unlabored respirations: Yes Mental status: Awake nausea: No Vomiting: No Anesthesia Complication: No Fluid Hydration Crystalloid volume administer (ml): 500 Total IV fluid infused: 500 Progress Note Anesthesia document: Postop Eval 1 completed: Yes 04/21/24 1520 Date Heath Truong MD Cosigner Signature: Date CC: Signed Normal [facility] MR/[id number] 04-21-2024 MR/POSTOPAN2 [facility] Medical Records Department [address] [place] [address] Anesthesia Postop Eval II 04/21/24 1715 MR#: [id number] Acct: [id number] Name: KARRI MARTIN Rep #: [id number] : 1990 34 From: Magdaleno Clinton MD PCP: Dr. Cain Pretty MD Status:[facility] Y Race: C Location: [facility] Anesthesia Postop Eval I Sum Postop Eval Completion status Anesthesia document: Postop Eval 1 completed: Yes Anesthesia Postop Eval I Summary Anesthesia Postop Eval I Summary: Anesthesia Postop Eval I: Assessment Summary Airway patent Yes 04/21/24 15:19 Spontaneous unlabored Yes 04/21/24 15:19 respirations Mental status Awake 04/21/24 15:19 nausea No 04/21/24 15:19 Vomiting No 04/21/24 15:19 Anesthesia Postop Eval I: Fluid Summary Crystalloid volume administer 500 04/21/24 15:19 (ml) Colloids volume administered ( ml) Blood Product volume administered (ml) Total IV fluid infused 500 04/21/24 15:19 Anesthesia Postop Eval I: Summary Notes Anesthesia Complication No 04/21/24 15:19 Anesthesia Complication Comment: Post-operative progress note Anesthesia: Postop Eval II Evaluation Mental status: Awake Pain Level: 0 nausea: No Vomiting: No 04/21/24 171 Date Magdaleno Clinton MD Cosigner Signature: Date CC: Signed Normal [facility] Mean corpuscular hemoglobin (MCH) determinationOrdered By: Smiley Madrid on 04-21-2024 MCH (RBC) [Entitic mass] 30.2 pg 27.0-32.0 [facility] Mean corpuscular hemoglobin concentration (MCHC) determinationOrdered By: Smiley Madrid on 04-21-2024 MCHC (RBC) [Mass/Vol] 33.2 g/dL 32-36 [facility] Mean platelet volume determi nationOrdered By: Smiley Madrid on 04-21-2024 Platelet mean volume (Bld) [Entitic vol] 10.8 fL 6.2-12.0 [facility] Miscellaneous procedureOrder ed By: Smiley Madrid on 04-21-2024 Miscellaneous Test See comment [facility] Comment on above: TEST RESULTS LIMITST SH Receptor Antibody (TBII) <0.3 U/L Reference Range: Antibody Titer: <1.0 U/L = Negative 1.1 - 1.5 U/L = Equivocal >1.5 U/L = Positive TESTING PERFORMED AT [facility]. ORIGINAL REPORT ON FILE IN LAB CONTAINS ADDITIONAL TEST SITE INFORMATION. Monocyte percentageOrdered B y: Smiley Madrid on 04-21-2024 Monocytes/100 WBC (Bld) 5.8 % 0-10 [facility] Neutrophil percentageOrdered By: Smiley Madrid on 04-21-2024 Neutrophils/100 WBC (Bld) 64.4 % 47-70 [facility] Nucleated red blood cell per centageOrdered By: Smiley Madrid on 04-21-2024 Nucleated RBC/100 WBC (Bld) [Ratio] 0 % 0-5 [facility] Pop Singer Office Visit Reporton 04-21-2024 Pop Singer Office Visit Report [facility] [place] [address], [address] [place] [address] OFFICE VISIT Date of Service: 04/21/24 MR#: [id number] Acct: [id number] Name: KARRI MARTIN Rep #: [id number] : 1990 Provider: Dr. Smiley herrmann MD Age/Sex: 34/F Location: [facility] [place] Status: Signed Intake Vital Signs 04/20/24 19:57 04/21/24 08:07 04/21/24 08:09 Height 5 ft 4 in 5 ft 4 in 5 ft 4 in Weight: 163 lb 6 oz BMI 28.0 BP 117/77 Intake Visit Reasons: RESCAN Rn Chronic Required: No Is patient in pain?: No Allergies nitrofurantoin Allergy (Mild, Verified 04/21/24 08:08) Hives Medications ???Medication ???Instructions ???Recorded ???Confirmed ???Type sertraline 25 mg tablet 25 mg PO DAILY anxiety #30 tabs 10/18/22 04/21/24 Rx PNV 178-FA 180 mcg-om3 35 mg-dha tab PO DAILY 07/13/23 04/21/24 History 25 mg-epa 5 mg-fish oil chew tablet levothyroxine 150 mcg tablet 150 mcg PO .COMPLEX hypothyorid 03/21/24 04/21/24 History ondansetron 4 mg disintegrating 4 mg PO Q8H PRN nausea and 03/31/24 04/21/24 Rx tablet vomiting #60 tabs Last Menstrual Period: 02/02/24 Zika: Zika virus screening: Negative : No PFSH PFSH Medical History History of oligohydramnios in prior , currently Previous gestational diabetes mellitus, antepartum Spotting in early Hx of recurrent urinary tract infection delivery delivered History of pre-term labor History of premature rupture of membranes (PPROM) History of prior with IUGR Thyroid disorder Anemia affecting IUGR (intrauterine growth restriction) in prior , Surgical History Campbell teeth extracted S/P Family History Father Diabetes Grandfather Diabetes Mother Seizures Social History adopted: Yes (11yrs old) household members: spouse and children housing: house number of children: 3 current occupational status: employed 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[employer] current 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/hazards: No pets and animals: Yes ( taking care of litter box) pets and animals: cat(s), dog(s) and other details: rabbit history of recent travel: No sexually active: Yes Smoking Status: Never smoker alcohol intake: current alcohol intake frequency: holidays/special occasions only details: Not while substance use type: does not use well-balanced diet: daily or most days caffeine: Yes Type: coffee Number of servings: 1 and tea Number of servings: 1 eating out: rarely or never during the past year weight has: increased > 10 lbs what type of physical activity do you participate in: bicycling, weight training and additional details: yuni frequency: 3-4 times per week duration: 15-30 minutes/day fatou/christianity: Quaker seatbelt use: always do you feel safe at home: Yes additional social history: : Stephen - Management History 6 Elective abortions Hx Para 3 Spontaneous abortions 2 Hx # Term Pregnancies Ectopic pregnancies Hx # Pregnancies Multiple births # of living children 3 Past Pregnancies Del. Date Name GA/Weeks Outcome Route Bth Weight Gen Labor Lgth Anesthesia Del Locatn Provider FOB 04/03/17 Antonina 40 live - full term 7lbs 12oz Female 3 days epi dural [facility] Dr. Whitmore [facility] 01/10/19 Raffy 34 live - 5lbs 12oz Male 0 spinal [place] Whyte mma [facility] 11/19/20 5 spontaneous 08/22/21 Lieda 39 live - full term 7lbs 3oz Female spinal [facility] Sriramcam Stephen 07/16/23 5 spontaneous Delivery Date: 04/03/17 Last Updated by: Kim Olsen STAT c/s nuchal cord; distress Delivery Date: 01/10/19 Last Updated by: Kim Olsen PPROM, STAT C/S; IUGR; [place] Delivery Date: 08/22/21 Last Updated by: Karina Chávez RLTCS HPI RESCAN Details: KARRI VILLAVICENCIO is a 34 year old who presents for early miscarriage, measuring 9w1d no fht and no color doppler, having bleeding since , seen in ER and no FHT seen either. no fevers some crmaping OB Visit MARGUERITE Calculator Estimated Delivery Date Method Current WG Current Estimate 11/08/24 LMP (Certain) 11w 2d Other Estimates 11/10/24 Ultrasound #1 11w 0d Expected Delivery Route/Plan Labor Preferences- CB/BF classes: [] labor support person: [] labor intervention preferences: [] pain management options preferred: [] cut (more content not included)... Normal [facility] Operative Reporton 4 Operative Report [facility] Medical Records Department [address] [place] [address] Operative Report 04/21/24 1502 MR#: [id number] Acct: [id number] Name: KARRI MARTIN Rep #: [id number] : 1990 34 From: Smiley Madrid MD PCP: Dr. Cain Pretty MD Status:[facility] Location: [facility] Problems Associated Problem List Diagnoses (1) Missed : Procedures Urinary/Genital 52xxx-59xxx: 76114 Surg Trtmt missed Ab, 1TM Operative Report (Standard) Operative Information Date of Procedure: 04/22/24 Pre-Operative Diagnosis: missed ab Post-Operative Diagnosis: same Surgery/Procedure Performed: suction d and c water safety instructor: No Type of Anesthesia: IV Sedation RN Documented Start/Stop Times: Operation Date: 04/21/24 13:30 Case Time Into Pre-Op 04/21/24 11:43 Out of Pre-Op 04/21/24 14:27 Anesthesia Start 04/21/24 14:31 Into Room 04/21/24 14:31 Procedure Start 04/21/24 14:50 Procedure End 04/21/24 15:00 Anesthesia End 04/21/24 15:07 Out of Room 04/21/24 15:07 Into Recovery 04/21/24 15:11 Out of Recovery 04/21/24 16:05 Into Phase II Recovery 04/21/24 16:06 Out of Phase II 04/21/24 16:50 Procedure Start Time: 14:50 Procedure Stop Time: 15:00 Select all DRAINS/GRAFTS/IMPLANTS that apply: None Estimated Blood Loss: 100 Specimen collected: Yes Description of specimen(s) removed: POC Description of surgery: Patient was taken to the operating room and placed under MAC local anesthesia. She was prepped and draped in the normal sterile fashion the dorsal lithotomy position. Bladder was drained of clear urine and anterior lip of the cervix was grasped and the uterus sounded to 9cm. Cervix was progressively dilated to allow passage of a 9mm suction curette. Progressive passes were made removing the retained products of conception without complication. Sharp curettage confirmed complete removal of the retained products. All instruments were removed from the vagina and excellent hemostasis was noted and the patient was taken to recovery in stable condition. Surgical Findings: 8 week size uterus Complications Complications: No 04/22/24 1116 Cosigner Signature (if applicable): CC: Dr. Cain Pretty MD; Dr. Smiley Madrid MD Signed Normal [facility] Platelet countOrdered By: Castro Madrid on 04-21-2024 Platelets (Bld) [#/Vol] 191 10*3/uL 150-450 [facility] RBC Auto (Bld) [#/Vol]Ordere d By: Smiley Madrid on 04-21-2024 RBC (Bld) [#/Vol] 4.17 10*6/uL Low 4.2-5.4 [facility] Serum cardiolipin IgM antibo dy assayOrdered By: Smiley Madrid on 04-21-2024 Anti-Cardiolipin IgM Antibody 13 MPL U/mL High 0-12 [facility] Comment on above: Negative: <13 Indete rminate: 13 - 20 Low-Med Positive: >20 - 80 High Positive: >80Performed at: [place] [place], [place] [id number] Director: Emery Fenton MD, Phone: [phone] at: [facility] [place], [place] [id number] Director: Babatunde uFller PhD, Phone: [phone] Surgery Specimen Level Alexis 04-21-2024 Surgery Specimen Level IV Patient Age/Sex Location Account Attending Physician KARRI MARTIN 34/F [facility] [id number] Dr. Smiley Madrid MD Specimen: [id number] Received: 04/21/24 Status: YAYA Moya Num: [id number] Spec Type: PROD CONC Subm Dr: Dr. Smiley Madrid MD HEADER OPERATION: D C, suction, Anora testing PRE-OP DIAGNOSIS: Missed TISSUE SUBMITTED: Products of conception - ANORA TESTING MICROSCOPIC DIAGNOSIS Products of conception, dilation and curettage: Decidua, gestational endometrium, immature chorionic villi and tissue (products of conception) clinically missed . See comment. SJ: 04/23/2024 COMMENT Results of Anora studies will be reported as an addendum. MICROSCOPIC DESCRIPTION Slides are reviewed. GROSS DESCRIPTION Received without fixative is one container labeled with the patient's name and designated Products of conception. The specimen consists of multiple irregular fragments of pink soft tissue that in aggregate measure 6.0 x 7.0 x 1.0 cm. No tissue is identified. A portion of tissue is submitted for Anora studies. Pill Maker tissue is submitted in three cassettes. GUY. 04/22/2024 TC:5 CPT:64617 ADDENDUM Addendum 1 Entered: 04/29/24 ANORA MICROARRAY CHROMOSOME ANALYSIS WITH PARENTAL SUPPORT RESULT: Abnormal Male Patient Age/Sex Location Account Attending Physician SAMI KARRI VILLAVICENCIO 34/ [facility] [id number] Dr. Smiley Madrid MD ADDENDUM (Continued) MICROARRAY RESULT: arr(21)x3 CLINICAL INTERPRETATION: Abnormal result. Trisomy 21 detected. Trisomy 21 is associated with clinical diagnosis of Down syndrome which is found in 1 in 600 live births. It presents with syndromic congenital abnormalities and intellectual disability. Trisomy 21 is more likely to be lethal during the period and about two-thirds of pregnancies with Trisomy 21 are miscarried. Genetic counseling is recommended to discuss the significance of this result. Referral to a local genetic counselor maybe considered. Please see complete report in e-chart or EMR Addendum Signed (signature on file) Dr. Wes Muñoz MD 04/29/24 1356 Patient Age/Sex Location Account Attending Physician KARRI MARTIN 34/F [facility] [id number] Dr. Smiley Madrid MD Signed (signature on file) Dr. Wes Muñoz MD 04/23/24 1229 Normal [facility] Comment on above: Performed By: #### L [id number], L506.0400 #### [facility] [address] [place], [address] T4 Free Directon 04-21-2024 T4 FREE DIRECT 1.65 ng/dL High 0.76-1.46 [facility] Comment on above: Performed By: #### M 100.2200, [id number] #### [facility] [address] [place], [address] TSH QnOrdered By: Smiley gage on 04-21-2024 Thyroid Stimulating Hormone (TSH) 0.538 uIU/mL 0.358-3.740 [facility] Thrombin time Coag (PPP) [Ti me]Ordered By: Smiley Sriramcam on 04-21-2024 Thrombin Time 16.0 sec 0.0-23.0 [facility] Thyroid Stim Hormone (TSH)on 04-21-2024 TSH 0.538 uIU/mL Normal 0.358-3.740 [facility] Comment on above: Performed By: #### M 100.2200, [id number] #### [facility] [address] [place], [place], [id number] Type AND Screenon 04-21-2024 Ab SCREEN GEL Negative Normal [facility] Comment on above: Order Comment: PN Performed By: #### M 100.2200, [id number] #### [facility] [address], [place], [id number] White blood cell (WBC) count Ordered By: Smiley Madrid on 04-21-2024 WBC (Bld) [#/Vol] 6.2 10*3/uL 4.4-11.0 [facility] dRVVT Coag (PPP) [Time]Order ed By: Smiley Madrid on 04-21-2024 Dilute Mehran Viper Venom (Lupus) 29.8 sec 0.0-47.0 [facility] Bilirubin Test strip Ql (U)O rdered By: Aden Goodman on 04-20-2024 Bilirubin Ql (U) Negative Negative [facility] Emergency Department Summary on 04-20-2024 Emergency Department Summary [facility] Medical Records Department [address] [place] [address] Emergency Department Summary 04/20/24 MR#: [id number] Acct: [id number] Name: KARRI MARTIN Rep #: [id number] : 1990 34 From: Aden Goodman MD PCP: Dr. Cain Pretty MD Status:DEP ER Location: ED HPI HPI - Female History of Present Illness Chief Complaint: Vag Bld, Preg Informant: patient and family Associated Symptoms P: 3 Narrative Narrative: 34-year-old female [address] Tito Deleon, started having lower abdominal cramping and some mucousy bleeding today. Relatively mild. No presyncope. She has had some nausea for last couple weeks vomited today. No fevers or chills but she also started having urinary frequency today abnormal from what she is drinking. She had an ultrasound about 4 weeks ago showing an IUP and a heartbeat. [facility] Medical History History of oligohydramnios in prior , currently Previous gestational diabetes mellitus, antepartum Spotting in early Hx of recurrent urinary tract infection delivery delivered History of pre-term labor History of premature rupture of membranes (PPROM) History of prior with IUGR Thyroid disorder Anemia affecting IUGR (intrauterine growth restriction) in prior , Home Medications ???Medication ???Instructions ???Recorded ???Last Taken ???Type sertraline 25 mg tablet 25 mg PO DAILY anxiety #30 tabs 10/18/22 Unknown Rx PNV 178-FA 180 mcg-om3 35 mg-dha tab PO DAILY 07/13/23 Unknown History 25 mg-epa 5 mg-fish oil chew tablet levothyroxine 150 mcg tablet 150 mcg PO .COMPLEX hypothyorid 03/21/24 Unknown History ondansetron 4 mg disintegrating 4 mg PO Q8H PRN nausea and 03/31/24 Unknown Rx tablet vomiting #60 tabs Allergy/AdvReac Type Severity Reaction Status Date / Time nitrofurantoin Allergy Mild Hives Verified 04/20/24 19:57 Family History Father Diabetes Grandfather Diabetes Mother Seizures Surgical History Campbell teeth extracted S/P Social History adopted: Yes (13yrs old) household members: spouse and children housing: house number of children: 3 current occupational status: employed 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[employer] current 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/hazards: No pets and animals: Yes ( taking care of litter box) pets and animals: cat(s), dog(s) and other details: rabbit history of recent travel: No sexually active: Yes Smoking Status: Never smoker alcohol intake: current alcohol intake frequency: holidays/special occasions only details: Not while substance use type: does not use well-balanced diet: daily or most days caffeine: Yes Type: coffee Number of servings: 1 and tea Number of servings: 1 eating out: rarely or never during the past year weight has: increased > 10 lbs what type of physical activity do you participate in: bicycling, weight training and additional details: yuni frequency: 3-4 times per week duration: 15-30 minutes/day fatou/christianity: Quaker seatbelt use: always do you feel safe at home: Yes additional social history: : Stephen - Management ROS ROS ED Constitutional Constitutional ED: Denies chills or fever(s) Cardiovascular Cardiovascular: Denies chest pain Respiratory/Chest Respiratory/Chest: Denies dyspnea Gastrointestinal Gastrointestinal: Reports abdominal pain, nausea and vomiting Genitourinary Genitourinary ED: Reports urinary frequency and other Details: dysuria once earlier only ; Denies hematuria Musculoskeletal Musculoskeletal: Denies myalgias or neck pain Integumentary Denies rash Neurologic Neurologic: Denies headache(s), paresthesias or weakness EXAM Physical Exam Const Vital Signs: 04/20/24 19:57 Temperature 97.4 F L Temperature Source Temporal Pulse Rate 72 Respiratory Rate 18 Blood Pressure 120/70 Blood Pressure Mean 86 Pulse Ox 100 Oxygen Delivery Method Room Air Positive well nourished and well developed Constitutional Narrative: Well-appearing General Appearance ED: well developed and NAD HEENT Reports moist mucous membranes normocephalic and atraumatic Eyes PERRL and EOMs intact bilaterally Neck full ROM and supple Resp normal respiratory effort and clear to auscultation bilaterally Cardio regular rate, regular rhythm and no murmurs GI non-tender and non-distended Auscultation: normoactive bowel sounds Palpation: soft Back/Spine (more content not included)... Normal [facility] Epithelial cells.squamous LM Ql (Urine sed)Ordered By: Aden Goodman on 04-20-2024 Epithelial cells.squamous LM.HPF (Urine sed) [#/Area] 0 /[HPF] 5-10 [facility] Glucose Ql (U)Ordered By: Lo Goodman on 04-20-2024 Urine Glucose (UA) Normal mg/dl Normal [facility] HCG ( test) QlOrder ed By: Aden Goodman on 04-20-2024 Human Chorionic Gonadotropin, Quant 5679 mIU/mL High <4 [facility] Comment on above: hCG levels with Gest ational AgeGestational Age hCG mIU/mL (IU/L)0.2 - 1 week 5 - 501-2 weeks 50 - 5002-3 weeks 100 - 22370-6 weeks 500 - 500388-1 weeks 1000 - 907755-2 weeks 40659 - 100,0006-8 weeks 52655 - 200,0002-3 months 35481 - 100,000 Ketones Test strip Ql (U)Ord ered By: Aden Goodman on 04-20-2024 Ketones Ql (U) Negative Negative [facility] Microscopic analysis of urin e for red blood cells (RBC)Ordered By: Aden Goodman on 04-20-2024 Urine RBC 0-5 SEEN /hpf 0-5 [facility] Mucus LM Ql (Urine sed)Order ed By: Aden Goodman on 04-20-2024 Mucus Ql (Urine sed) 0 SEEN /hpf [facility] Nitrite Test strip Ql (U)Ord ered By: Aden Goodman on 04-20-2024 Nitrite Ql (U) Negative Negative [facility] Protein Test strip Ql (U)Ord ered By: Aden Goodman on 04-20-2024 Protein Ql (U) Negative Negative [facility] Urinalysis, Completeon 04-20 EPI,SQUAMOUS 0-5 SEEN Normal 5-10 [facility] Comment on above: Order Comment: CLEAN CATCH Performed By: #### M 100.2200, [id number] #### [facility] [address] [place], [address] RBC 0-5 SEEN Normal 0-5 [facility] Comment on above: Order Comment: CLEAN CATCH Performed By: #### M 100.2200, [id number] #### [facility] [address] [place], [address] WBC 0-5 SEEN Normal 0-5 [facility] Comment on above: Order Comment: CLEAN CATCH Performed By: #### M 100.2200, [id number] #### [facility] [address] [place], [address] BACTERIA 0 SEEN Normal None Seen [facility] Comment on above: Order Comment: CLEAN CATCH Performed By: #### M 100.2200, [id number] #### [facility] [address] [place], [address] Mucus Ql (Urine sed) 0 SEEN Normal [facility] Comment on above: Order Comment: CLEAN CATCH Performed By: #### M 100.2200, [id number] #### [facility] [address] [place], [address] Urine blood detectionOrdered By: Aden Goodman on 04-20-2024 Urine Occult Blood 10 /ul High Negative [facility] Urine clarityOrdered By: Dione Goodman on 04-20-2024 Clarity (U) Clear Clear [facility] Urine color determinationOrd ered By: Aden Goodman on 04-20-2024 Color (U) Yellow Yellow [facility] Urine leukocyte esterase det ection by dipstickOrdered By: Aden Goodman on 04-20-2024 Leukocyte esterase Test strip Ql (U) Negative Negative [facility] Urine pHOrdered By: Aden Goodman on 04-20-2024 pH (U) 6.0 [pH] 5.0 - 8.0 [facility] Urine sediment bacteria coun t by microscopy (number/high power field)Ordered By: Aden Goodman on 04-20-2024 Bacteria LM.HPF (Urine sed) [#/Area] 0 /[HPF] None Seen [facility] Urine specific gravity measu rementOrdered By: Aden Goodman on 04-20-2024 Specific gravity (U) [Rel density] 1.015 1.002-1.030 [facility] Urobilinogen Ql (U)Ordered B y: Aden Goodman on 04-20-2024 Urine Urobilinogen Normal mg/dl Normal [facility] White blood cell countOrdere d By: Aden Goodman on 04-20-2024 Urine WBC 0-5 SEEN /hpf 0-5 [facility] hCG Titer Quant., Serumon HCG QUANT. 5679 mIU/mL High 1-3 [facility] Comment on above: Result Comment: hCG levels with Gestational Age Gestational Age hCG mIU/mL (IU/L) 0.2 - 1 week 5 - 50 1-2 weeks 50 - 500 2-3 weeks 100 - 5000 3-4 weeks 500 - 79816 4-5 weeks 1000 - 96059 5-6 weeks 31838 - 100,000 6-8 weeks 90890 - 200,000 2-3 months 12910 - 100,000 Performed By: #### L 501.9520, L506.0400 #### [facility] [address] [place], [address] Chlamydia/GC LYLY aptimaon CHLAMY,NUC ACID Negative Normal Negative [facility] Comment on above: Performed By: #### M 100.2200, [id number] #### [facility] [address] [place], [address] GC BY NUC ACID Negative Normal Negative [facility] Comment on above: Result Comment: Perf ormed at: =G - [facility] [address] [id number] Global Manager: Viky Flores MD, Phone: [phone] Performed By: #### M 100.2200, [id number] #### [facility] [address] [place], [address] Urine Cultureon 04-02-2024 [facility] Escherichia coli [place] Count 50,000-80,000 Escherichia coli: REACTION Ampicillin Islt PATRICE <=2 Ampicillin+Sulbac Islt PATRICE <=2 S ceFAZolin Islt PATRICE <=4 S Cefepime Islt PATRICE <=0.12 S cefTRIAXone Islt PATRICE <=0.25 S Ciprofloxacin Islt PATRICE <=0.25 S B-Lactamase Extended Susc Islt NEG Gentamicin Islt PATRICE <=1 S Imipenem Islt PATRICE 1 S levoFLOXacin Islt PATRICE <=0.12 S Nitrofurantoin Islt PATRICE <=16 S Pip+Tazo Islt PATRICE <=4 S Tobramycin Islt PATRICE <=1 S TMP SMX Islt PATRICE <=20 S Normal [facility] Comment on above: Performed By: #### M 100.2200, [id number] #### [facility] [address] [place], [address] C. trachomatis rRNA LYLY+prob e Ql (Unsp spec)Ordered By: Jackie Claudio on 03-31-2024 Chlamydia DNA (LYLY) Negative Negative [facility] Neisseria gonorrhoeae nuclei c acid detection by amplified probe techniqueOrdered By: Jackie Claudio on 03-31-2024 N. gonorrhoeae DNA LYLY+probe Ql (Unsp spec) Negative Negative [facility] Comment on above: Performed at: =[address] [id number] Director: Viky Flores MD, Phone: [phone] Pop Singer Office Visit Reporton 03-31-2024 Pop Singer Office Visit Report [facility] [address], [address] [place] [address] OFFICE VISIT Date of Service: 03/31/24 MR#: [id number] Acct: [id number] Name: SAMI CARRSILVINAKARRI Sylvester Rep #: [id number] : 1990 Provider: Dr. Jackie Ragland DO Age/Sex: 34/F Location: [facility] Status: Signed Intake Vital Signs 07/19/23 12:56 03/31/24 15:02 Height 5 ft 4 in 5 ft 4 in Weight: 163 lb BMI 27.9 BP 102/61 Intake Visit Reasons: New OB, LMP 02/01, MARGUERITE 11/08/24 Rn Chronic Required: No Is patient in pain?: No Allergies nitrofurantoin Allergy (Mild, Verified 03/31/24 15:08) Hives Medications ???Medication ???Instructions ???Recorded ???Confirmed ???Type sertraline 25 mg tablet 25 mg PO DAILY anxiety #30 tabs 10/18/22 03/31/24 Rx PNV 178-FA 180 mcg-om3 35 mg-dha tab PO DAILY 07/13/23 03/31/24 History 25 mg-epa 5 mg-fish oil chew tablet levothyroxine 150 mcg tablet 150 mcg PO .COMPLEX hypothyorid 03/21/24 03/31/24 History ondansetron 4 mg disintegrating 4 mg PO Q8H PRN nausea and 03/31/24 03/31/24 Rx tablet vomiting #60 tabs Last Menstrual Period: 02/02/24 Zika: Zika virus screening: Negative : No Have you fallen in the past year?: No PFSH PFSH Medical History History of oligohydramnios in prior , currently Previous gestational diabetes mellitus, antepartum Spotting in early Hx of recurrent urinary tract infection delivery delivered History of pre-term labor History of premature rupture of membranes (PPROM) History of prior with IUGR Thyroid disorder Anemia affecting IUGR (intrauterine growth restriction) in prior , Surgical History Campbell teeth extracted S/P Family History Father Diabetes Grandfather Diabetes Mother Seizures Social History adopted: Yes (13yrs old) household members: spouse and children housing: house number of children: 3 current occupational status: employed 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[employer] current 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/hazards: No pets and animals: Yes ( taking care of litter box) pets and animals: cat(s), dog(s) and other details: rabbit history of recent travel: No sexually active: Yes Smoking Status: Never smoker alcohol intake: current alcohol intake frequency: holidays/special occasions only details: Not while substance use type: does not use well-balanced diet: daily or most days caffeine: Yes Type: coffee Number of servings: 1 and tea Number of servings: 1 eating out: rarely or never during the past year weight has: increased > 10 lbs what type of physical activity do you participate in: bicycling, weight training and additional details: yuni frequency: 3-4 times per week duration: 15-30 minutes/day fatou/christianity: Quaker seatbelt use: always do you feel safe at home: Yes additional social history: : Stephen - Management History 6 Elective abortions Hx Para 3 Spontaneous abortions 2 Hx # Term Pregnancies Ectopic pregnancies Hx # Pregnancies Multiple births # of living children 3 Past Pregnancies Del. Date Name GA/Weeks Outcome Route Bth Weight Gen Labor Lgth Anesthesia Del Locatn Provider FOB 04/03/17 Antonina 40 live - full term 7lbs 12oz Female 3 days epi dural [facility] Dr. Whitmore [facility] 01/10/19 Raffy 34 live - 5lbs 12oz Male 0 spinal [place] Whyte huber [facility] 11/19/20 5 spontaneous 08/22/21 Lieda 39 live - full term 7lbs 3oz Female spinal H Marccam [facility] 07/16/23 5 spontaneous Delivery Date: 04/03/17 Last Updated by: Kim Olsen STAT c/s nuchal cord; distress Delivery Date: 01/10/19 Last Updated by: Kim Olsen PPROM, STAT C/S; IUGR; [place]lig[place] Delivery Date: 08/22/21 Last Updated by: Karina Chávez [facility] HPI New OB, LMP 02/01, MARGUERITE 11/08/24 Details: KARRI VILLAVICENCIO is a 34 year old who presents for New OB visit. OB Visit MARGUERITE Calculator Estimated Delivery Date Method Current WG Current Estimate 11/08/24 LMP (Certain) 8w 2d Other Estimates 11/10/24 Ultrasound #1 8w 0d Estimated Due Date: 11/08/24 Expected Delivery Route/Plan Labor Preferences- CB/BF classes: [] labor support person: [] labor intervention preferences: [] pain management options preferred: [] cut cord/dad catch: [] : [] PP control planned: [] discussed (more content not included)... Normal [facility] Urine cultureOrdered By: Estefanía Claudio on 03-31-2024 Bacteria identified Cx Nom (U) Escherichia coli Abnormal [facility] CNPNon 03-21-2024 [facility] SAMI CARRKARRI COOL ([id number]) 1990 F Date Time Provider Department 03/21/24 [facility] During your visit today, we recorded the following information about you: Cain Pretty MD 03/21/2024 2:45 PM Signed Let patient know her thyroid lab is good. Lets recheck it in 6 weeks with her being . Order placed. Sylvester Henao RN 03/21/2024 4:16 PM Signed Left detailed vm on identified vm, with provider's message below. Allergies As of Date: 03/21/2024 Noted Allergy Reaction MACROBID (NITROFURANTOIN MONOHYD/*05/29/2022 14 - Other: See Comments Comments: Possible urticaria. (Started shortly after finishing antibiotic) Date Reviewed: 01/30/2024 Reviewed by: Cain Pretty MD - Fully Assessed Reason for Visit: Results [95] Primary Visit Diagnosis:Acquired hypothyroidism [E03.9] Order(s):THYROID STIMULATING HORMONE [SQTSH] Order #: [id number] FUTURE Prescriptions as of 03/21/2024 - sertraline (ZOLOFT) 25 mg tablet Take 1 tablet by mouth once daily. - levothyroxine (LEVOXYL) 150 mcg tablet Take 1 tablet by mouth once daily. Jadon-Sun, 1.5 on Sun and two on Sunday. Take on empty stomach. For Thyroid. Problem List As Of Date 03/21/2024 Noted Resolved Routine gynecological examination [Z01.419] 04/20/2014 Well adult exam [Z00.00] 04/20/2014 Anxiety [F41.9] 04/20/2014 Acquired hypothyroidism [E03.9] 12/17/2014 Encounter for screening for diabetes mellitus [*02/01/2016 Encounter for screening for cardiovascular diso*02/01/2016 Agitation [R45.1] 09/18/2019 Medication management [Z79.899] 01/18/2022 Encounter Status:Closed by Sylvester HENAO on 03/21/24 Normal [facility] TSH SerPl-aCncon 03-21-2024 TSH Qn 1.710 m[IU]/L Normal 0.270-4.200 [facility] Comment on above: Order Comment: Toño chou Type: BLOOD SPECIMEN Ordering Facility: [facility] Address: [address] [place] [address] Result Comment: If t he patient is , TSH reference range varies by gestational period: First Trimester (weeks 9-12): 0.180-2.990 mIU/L Second Trimester: 0.110-3.980 mIU/L Third Trimester: 0.480-4.710 mIU/L Tanner Gardner et al. A Practical Approach for the Verifications and Determination of Site- and Trimester-Specific Reference Intervals for Thyroid Function tests in . Thyroid, 2019:29:3:412-420. Dieter E, et al. 2017 Guidelines of the [place] Thy[employer] Association for the Diagnosis and Management of Thyroid Disease during and the . Thyroid, 2017:27:3:315-389. Performed By: #### 5 7021-8 #### [facility] CLIA [id number] [address] [place] [address] [place] CBC W Auto Differential pane l (Bld)on 01-18-2024 Basophils (Bld) [#/Vol] 0.03 10*3/uL Normal <0.11 [facility] Comment on above: Order Comment: Toño chou Type: BLOOD SPECIMEN Ordering Facility: [facility] Address: [address] [place] [address] Performed By: #### 5 7021-8 #### [facility] CLIA [id number] [address] [place] [address] [place] Basophils/100 WBC (Bld) 0.5 % Normal A [facility] Comment on above: Order Comment: Speci men Type: BLOOD SPECIMEN Ordering Facility: [facility] Address: [address] [place] [address] Performed By: #### 5 7021-8 #### [facility] CLIA [id number] [address] [place] [address] [facility] Differential cell count method Nom (Bld) Auto Normal [facility] Comment on above: Order Comment: Speci men Type: BLOOD SPECIMEN Ordering Facility: [facility] Address: [address] [place] [address] Performed By: #### 5 7021-8 #### [facility] CLIA [id number] [address] [place] [address] [place] Eosinophils (Bld) [#/Vol] 0.20 10*3/uL Normal <0.46 [facility] Comment on above: Order Comment: Speci men Type: BLOOD SPECIMEN Ordering Facility: [facility] Address: [address] [place] [address] Performed By: #### 5 7021-8 #### [facility] CLIA [id number] [address] [place] [id number] [facility] Eosinophils/100 WBC (Bld) 3.2 % Normal [facility] Comment on above: Order Comment: Speci men Type: BLOOD SPECIMEN Ordering Facility: [facility] Address: [address] [place] [address] Performed By: #### 5 7021-8 #### [facility] CLIA [id number] [address] [place] [address] [place] Erythrocyte distribution width (RBC) [Ratio] 12.8 % Normal 11.5-15.0 [facility] Comment on above: Order Comment: Speci men Type: BLOOD SPECIMEN Ordering Facility: [facility] Address: [address] [place] [address] Performed By: #### 5 7021-8 #### [facility] CLIA [id number] [address] [place] [address] [place] Hematocrit (Bld) [Volume fraction] 39.4 % Normal 36.0-46.0 [facility] Comment on above: Order Comment: Speci men Type: BLOOD SPECIMEN Ordering Facility: [facility] Address: [address] [place] [address] Performed By: #### 5 7021-8 #### [facility] CLIA [id number] [address] [place] [address] [place] Hemoglobin (Bld) [Mass/Vol] 12.7 g/dL Normal 11.5-15.5 [facility] Comment on above: Order Comment: Speci men Type: BLOOD SPECIMEN Ordering Facility: [facility] Address: [address] [place] [address] Performed By: #### 5 7021-8 #### [facility] CLIA [id number] [address] [place] [address] [place] Immature granulocytes (Bld) [#/Vol] 10*3/uL Normal <0.10 [facility] Comment on above: Order Comment: Speci men Type: BLOOD SPECIMEN Ordering Facility: [facility] Address: [address] [place] [address] Performed By: #### 5 7021-8 #### [facility] CLIA [id number] [address] [place] Immature granulocytes/100 WBC (Bld) 0.2 % Normal [facility] Comment on above: Order Comment: Speci men Type: BLOOD SPECIMEN Ordering Facility: [facility] Address: [address] [place] [address] Performed By: #### 5 7021-8 #### [facility] CLIA [id number] [address] [place] Lymphocytes (Bld) [#/Vol] 1.89 10*3/uL Normal 1.00-4.00 [facility] Comment on above: Order Comment: Speci men Type: BLOOD SPECIMEN Ordering Facility: [facility] Address: [address] [place] [address] Performed By: #### 5 7021-8 #### [facility] CLIA [id number] [address] Lymphocytes/100 WBC (Bld) 30.6 % Normal [facility] Comment on above: Order Comment: Speci men Type: BLOOD SPECIMEN Ordering Facility: [facility] Address: [address] [place] [address] Performed By: #### 5 7021-8 #### [facility] CLIA [id number] [address] MCH (RBC) [Entitic mass] 29.8 pg Normal 26.0-34.0 [facility] Comment on above: Order Comment: Speci men Type: BLOOD SPECIMEN Ordering Facility: [facility] Address: [address] [place] [address] Performed By: #### 5 7021-8 #### [facility] CLIA [id number] [address] [place] [address] MCHC (RBC) [Mass/Vol] 32.2 g/dL Normal 30.5-36.0 [facility] Comment on above: Order Comment: Speci men Type: BLOOD SPECIMEN Ordering Facility: [facility] Address: [address] [place] [address] Performed By: #### 5 7021-8 #### [facility] CLIA [id number] [address] [place] [address] MCV (RBC) [Entitic vol] 92.5 fL Normal 80.0-100.0 [facility] Comment on above: Order Comment: Speci men Type: BLOOD SPECIMEN Ordering Facility: [facility] Address: [address] [place] [address] Performed By: #### 5 7021-8 #### [facility] CLIA [id number] [address] [place] Monocytes (Bld) [#/Vol] 0.35 10*3/uL Normal <0.87 [facility] Comment on above: Order Comment: Speci men Type: BLOOD SPECIMEN Ordering Facility: [facility] Address: [address] [place] [address] Performed By: #### 5 7021-8 #### [facility] CLIA [id number] [address] [place] [address] [place] Monocytes/100 WBC (Bld) 5.7 % Normal A [facility] Comment on above: Order Comment: Speci men Type: BLOOD SPECIMEN Ordering Facility: [facility] Address: [address] [place] [address] Performed By: #### 5 7021-8 #### [facility] CLIA [id number] [address] [place] [address] [place] Neutrophils (Bld) [#/Vol] 3.70 10*3/uL Normal 1.45-7.50 [facility] Comment on above: Order Comment: Speci men Type: BLOOD SPECIMEN Ordering Facility: [facility] Address: [address] [place] [address] Performed By: #### 5 7021-8 #### [facility] CLIA [id number] [address] [place] [address] [place] Neutrophils/100 WBC (Bld) 59.8 % Normal [facility] Comment on above: Order Comment: Speci men Type: BLOOD SPECIMEN Ordering Facility: [facility] Address: [address] [place] [address] Performed By: #### 5 7021-8 #### [facility] CLIA [id number] [address] [place] [address] [place] Nucleated RBC (Bld) [#/Vol] Normal [facility] Comment on above: Order Comment: Speci men Type: BLOOD SPECIMEN Ordering Facility: [facility] Address: [address] [place] [address] Performed By: #### 5 7021-8 #### [facility] CLIA [id number] [address] [place] [address] [place] Nucleated RBC/100 WBC (Bld) [Ratio] Normal [facility] Comment on above: Order Comment: Speci men Type: BLOOD SPECIMEN Ordering Facility: [facility] Address: [facility] [place] [address] Performed By: #### 5 7021-8 #### [facility] CLIA [id number] [address] [place] [address] [place] Platelet mean volume (Bld) [Entitic vol] 10.6 fL Normal 9.0-12.7 [facility] Comment on above: Order Comment: Speci men Type: BLOOD SPECIMEN Ordering Facility: [facility] Address: [address] [place] [address] Performed By: #### 5 7021-8 #### [facility] CLIA [id number] [address] [place] [address] [place] Platelets (Bld) [#/Vol] 221 10*3/uL Normal 150-400 [facility] Comment on above: Order Comment: Speci men Type: BLOOD SPECIMEN Ordering Facility: [facility] Address: [address] [place] [address] Performed By: #### 5 7021-8 #### [facility] CLIA [id number] [address] [place] [address] [place] RBC (Bld) [#/Vol] 4.26 10*6/uL Normal 3.90-5.20 [facility] Comment on above: Order Comment: Speci men Type: BLOOD SPECIMEN Ordering Facility: [facility] Address: [address] [place] [address] Performed By: #### 5 7021-8 #### [facility] CLIA [id number] [address] [place] [address] [place] WBC (Bld) [#/Vol] 6.18 10*3/uL Normal 3.70-11.00 [facility] Comment on above: Order Comment: Speci men Type: BLOOD SPECIMEN Ordering Facility: [facility] Address: [address] [place] [address] Performed By: #### 5 7021-8 #### [facility] CLIA [id number] [address] [place] [address] [facility] [place] Comprehensive metabolic 2000 panelon 01-18-2024 Albumin [Mass/Vol] 4.6 g/dL Normal 3.9-4.9 [facility] Comment on above: Order Comment: Speci men Type: BLOOD SPECIMEN Ordering Facility: [facility] Address: [address] [place] [address] Performed By: #### 2 4323-8, 57641-9, 6-3 #### [facility] CLIA [id number] [address] [place] [address] [facility] ALP [Catalytic activity/Vol] 64 U/L Normal 34-123 [facility] Comment on above: Order Comment: Speci men Type: BLOOD SPECIMEN Ordering Facility: [facility] Address: [address] [place] [address] Performed By: #### 2 4323-8, 10165-0, 6-3 #### [facility] CLIA [id number] [address] [place] [address] [facility] [place] ALT With P-5'-P [Catalytic activity/Vol] 18 U/L Normal 7-38 [facility] Comment on above: Order Comment: Speci men Type: BLOOD SPECIMEN Ordering Facility: [facility] Address: [address] [place] [address] Performed By: #### 2 4323-8, 29857-1, 6-3 #### [facility] CLIA [id number] [address] [place] [address] [facility] [place] Anion gap [Moles/Vol] 9 mmol/L Normal 8-15 [facility] Comment on above: Order Comment: Speci men Type: BLOOD SPECIMEN Ordering Facility: [facility] Address: [address] [place] [address] Performed By: #### 2 4323-8, 01361-5, 3016-3 #### [facility] CLIA [id number] [address] [place] [address] [place] AST With P-5'-P [Catalytic activity/Vol] 19 U/L Normal 13-35 [facility] Comment on above: Order Comment: Speci men Type: BLOOD SPECIMEN Ordering Facility: [facility] Address: [address] [place] [address] Performed By: #### 2 4323-8, 14147-0, 3016-3 #### [facility] CLIA [id number] [address] [place] [address] [place] Bilirubin [Mass/Vol] 0.3 mg/dL Normal 0.2-1.3 [facility] Comment on above: Order Comment: Speci men Type: BLOOD SPECIMEN Ordering Facility: [facility] Address: [address] [place] [address] Performed By: #### 2 4323-8, 47017-9, 3016-3 #### [facility] CLIA [id number] [address] [place] [address] [place] Calcium [Mass/Vol] 9.2 mg/dL Normal 8.5-10.2 [facility] Comment on above: Order Comment: Speci men Type: BLOOD SPECIMEN Ordering Facility: [facility] Address: [address] [place] [address] Performed By: #### 2 4323-8, 27890-2, 3016-3 #### [facility] CLIA [id number] [address] [place] [address] [place] Chloride [Moles/Vol] 102 mmol/L Normal 98-107 [facility] Comment on above: Order Comment: Speci men Type: BLOOD SPECIMEN Ordering Facility: [facility] Address: [address] [place] [address] Performed By: #### 2 4323-8, 13494-7, 3016-3 #### [facility] CLIA [id number] [address] [place] [address] [place] CO2 [Moles/Vol] 27 mmol/L Normal 22-30 [facility] Comment on above: Order Comment: Toño chou Type: BLOOD SPECIMEN Ordering Facility: [facility] Address: [address] [place] [address] Performed By: #### 2 4323-8, 29231-2, 3015-3 #### [facility] CLIA [id number] [address] [place] [address] [place] Creatinine [Mass/Vol] 0.63 mg/dL Normal 0.58-0.96 [facility] Comment on above: Order Comment: Speci men Type: BLOOD SPECIMEN Ordering Facility: [facility] Address: [address] [place] [address] Performed By: #### 2 4323-8, 89512-2, 3 #### [facility] CLIA [id number] [address] [place] [address] [place] Creatinine and Glomerular filtration rate.predicted panel (S/P/Bld) 119 mL/min/1.73m??? Normal >=60 [facility] Comment on above: Order Comment: Toño chou Type: BLOOD SPECIMEN Ordering Facility: [facility] Address: [address] [place] [address] Result Comment: [place] mated Glomerular Filtration Rate (eGFR) is calculated using the 2020 CKD-EPI creatinine equation. This equation utilizes serum creatinine, sex, and age as parameters. The creatinine assay has traceable calibration to isotope dilution-mass spectrometry. Refer to KDIGO guidelines for clinical interpretation. In patients with unstable renal function, e.g. those with acute kidney injury, the eGFR may not accurately reflect actual GFR. Performed By: #### 2 4323-8, 77904-8, 3 #### [facility] CLIA [id number] [address] [place] [address] [place] Glucose [Mass/Vol] 96 mg/dL Normal 74-99 [facility] Comment on above: Order Comment: Toño effie Type: BLOOD SPECIMEN Ordering Facility: [facility] Address: [address] [place] [address] Result Comment: The [place] Diabetes Association (ADA) provides guidance for cutoff values for fasting glucose and random glucose. The ADA defines fasting as no caloric intake for at least 8 hours. Fasting plasma glucose results between 100 to 125 mg/dL indicate increased risk for diabetes (prediabetes). Fasting plasma glucose results greater than or equal to 126 mg/dL meet the criteria for diagnosis of diabetes. In the absence of unequivocal hyperglycemia, results should be confirmed by repeat testing. In a patient with classic symptoms of hyperglycemia or hyperglycemic crisis, random plasma glucose results greater than or equal to 200 mg/dL meet the criteria for diagnosis of diabetes. Reference: Standards of Medical Care in Diabetes 2016, [place] [employer] Association. Diabetes Care. 2016.39(Suppl 1). Performed By: #### 2 4323-8, 28746-9, 6-3 #### [facility] CLIA [id number] [address] [place] [address] [place] Potassium [Moles/Vol] 4.1 mmol/L Normal 3.7-5.1 [facility] Comment on above: Order Comment: Toño chou Type: BLOOD SPECIMEN Ordering Facility: [facility] Address: [address] [place] [address] Performed By: #### 2 4323-8, 16379-5, 3015-3 #### [facility] CLIA [id number] [address] [place] [address] [place] Protein [Mass/Vol] 7.1 g/dL Normal 6.3-8.0 [facility] Comment on above: Order Comment: Toño chou Type: BLOOD SPECIMEN Ordering Facility: [facility] Address: [address] [place] [address] Performed By: #### 2 4323-8, 42022-3, 6-3 #### [facility] CLIA [id number] [address] [place] [address] [place] Sodium [Moles/Vol] 138 mmol/L Normal 136-144 [facility] Comment on above: Order Comment: Toño chou Type: BLOOD SPECIMEN Ordering Facility: [facility] Address: [address] [place] [address] Performed By: #### 2 4323-8, 53970-9, 3016-3 #### [facility] CLIA [id number] [address] [place] [address] [place] Urea nitrogen [Mass/Vol] 9 mg/dL Normal 7-21 [facility] Comment on above: Order Comment: Toño chou Type: BLOOD SPECIMEN Ordering Facility: [facility] Address: [address] [place] [address] Performed By: #### 2 4323-8, 78182-9, 6-3 #### [facility] CLIA [id number] [address] [place] [address] [place] HbA1c (Bld)on 01-18-2024 Average glucose Estimated from glycated hemoglobin (Bld) [Mass/Vol] 103 mg/dL Normal [facility] Comment on above: Order Comment: Toño chou Type: BLOOD SPECIMEN Ordering Facility: [facility] Address: [address] [place] [address] Result Comment: eAG: (Estimated average glucose) is a calculated value from HgbA1c and is car sales representative of the average blood glucose level in the last 2-3 month period. Performed By: #### 5 5454-3 #### [facility] CLIA [id number] [address] [place] [address] [place] HbA1c (Bld) [Mass fraction] 5.2 % Normal 4.3-5.6 [facility] Comment on above: Order Comment: Toño chou Type: BLOOD SPECIMEN Ordering Facility: [facility] Address: [address] [place] [address] Result Comment: [place] Diabetes Association guidelines indicate that patients with HgbA1c in the range 5.7-6.4% are at increased risk for development of diabetes, and intervention by lifestyle modification may be beneficial. HgbA1c greater or equal to 6.5% is considered diagnostic of diabetes. Performed By: #### 5 5454-3 #### [facility] CLIA [id number] [address] [place] [address] [place] Lipid 1996 panelon 09-13-202 4 Cholesterol [Mass/Vol] 144 mg/dL Normal <200 [facility] Comment on above: Order Comment: Toño chou Type: BLOOD SPECIMEN Ordering Facility: [facility] Address: [address] [place] [address] Result Comment: <200 mg/dL, Desirable 200-239 mg/dL, Borderline high >239 mg/dL, High Performed By: #### 2 4323-8, 51845-0, 6-3 #### [facility] CLIA [id number] [address] [place] [address] [facility] [place] Cholesterol in HDL [Mass/Vol] 60 mg/dL Normal >39 [facility] Comment on above: Order Comment: Toño chou Type: BLOOD SPECIMEN Ordering Facility: [facility] Address: [address] [place] [address] Result Comment: 40-5 9 mg/dL, Acceptable >59 mg/dL, High: Negative risk factor for coronary heart disease <40 mg/dL, Low: Positive risk factor for coronary heart disease Performed By: #### 2 4323-8, 51465-8, 3015-3 #### [facility] CLIA [id number] [address] [place] [address] [place] Cholesterol in LDL [Mass/Vol] 72 mg/dL Normal <100 [facility] Comment on above: Order Comment: Toño chou Type: BLOOD SPECIMEN Ordering Facility: [facility] Address: [address] [place] [address] Result Comment: <100 mg/dL, Optimal 100-129 mg/dL, Near optimal/above optimal 130-159 mg/dL, Borderline high 160-189 mg/dL, High >189 mg/dL, Very high Secondary prevention optimal LDL Cholesterol levels are recommended to be < 70 mg/dL Performed By: #### 2 4323-8, 07726-8, 3015-3 #### [facility] CLIA [id number] [address] [place] [address] [facility] [place] Cholesterol in LDL/Cholesterol in HDL [Mass ratio] 1.20 {ratio} Normal <2.54 [facility] Comment on above: Order Comment: Toño men Type: BLOOD SPECIMEN Ordering Facility: [facility] Address: [address] [place] [address] Result Comment: Percy burnett: 1. National Cholesterol Education Program ATP III Guideline At-A-Glance Quick Desk Reference: National Heart, Lung, and Blood Navarro. National Institutes of Health. 2001: NIH Publication No. 01-3305. 2. An International Atherosclerosis Society position paper: global recommendations for the management of dyslipidemia: executive summary, Atherosclerosis. 2014: 232(2):410-413. Performed By: #### 2 4323-8, 76770-9, 3016-3 #### [facility] CLIA [id number] [address] [place] [address] [place] Cholesterol in VLDL [Mass/Vol] 12 mg/dL Normal <30 [facility] Comment on above: Order Comment: Toño effie Type: BLOOD SPECIMEN Ordering Facility: [facility] Address: [address] [place] [address] Performed By: #### 2 4323-8, 05955-2, 6-3 #### [facility] CLIA [id number] [address] [place] [address] [place] Cholesterol non HDL [Mass/Vol] 84 mg/dL Normal <130 [facility] Comment on above: Order Comment: Toño effie Type: BLOOD SPECIMEN Ordering Facility: [facility] Address: [address] [place] [address] Result Comment: <130 mg/dL, Optimal 130-159 mg/dL, Near optimal/above optimal 160-189 mg/dL, Borderline high 190-219 mg/dL, High >219 mg/dL, Very high Secondary prevention optimal non HDL Cholesterol levels are recommended to be <100 mg/dL Performed By: #### 2 4323-8, 03523-6, 3016-3 #### [facility] CLIA [id number] [address] [place] [address] [place] Cholesterol.total/Paloma sterol in HDL [Mass ratio] 2.40 {ratio} Normal <5.10 [facility] Comment on above: Order Comment: Toño effie Type: BLOOD SPECIMEN Ordering Facility: [facility] Address: [address] [place], [place] [id number] Performed By: #### 2 4323-8, 42848-3, 3016-3 #### [facility] CLIA [id number] [address] [place] [address] [facility] [place] FASTING TIME 12 hrs Normal [facility] Comment on above: Order Comment: Toño chou Type: BLOOD SPECIMEN Ordering Facility: [facility] Address: [address] [place] [address] Performed By: #### 2 4323-8, 00592-7, 3016-3 #### [facility] CLIA [id number] [address] [place] [address] [place] Triglyceride [Mass/Vol] 62 mg/dL Normal <150 [facility] Comment on above: Order Comment: Toño chou Type: BLOOD SPECIMEN Ordering Facility: [facility] Address: [address] [place] [address] Result Comment: <150 mg/dL, Normal 150-199 mg/dL, Borderline high 200-499 mg/dL, High >499 mg/dL, Very high Performed By: #### 2 4323-8, 46229-8, 3016-3 #### [facility] CLIA [id number] [address] [place] [address] [place] TSH SerPl-aCncon 01-18-2024 TSH Qn 3.090 m[IU]/L Normal 0.270-4.200 [facility] Comment on above: Order Comment: Toño chou Type: BLOOD SPECIMEN Ordering Facility: [facility] Address: [address] [place] [address] Result Comment: If t he patient is , TSH reference range varies by gestational period: First Trimester (weeks 9-12): 0.180-2.990 mIU/L Second Trimester: 0.110-3.980 mIU/L Third Trimester: 0.480-4.710 mIU/L Tanner Gardner et al. A Practical Approach for the Verifications and Determination of Site- and Trimester-Specific Reference Intervals for Thyroid Function tests in . Thyroid, 2019:29:3:412-420. Dieter Pisano, et al. 2017 Guidelines of the [place] [employer] for the Diagnosis and Management of Thyroid Disease during and the . Thyroid, 2017:27:3:315-389. Performed By: #### 2 4323-8, 50032-1, 3016-3 #### [facility] CLIA [id number] [address] [place] [address] [place] Absolute lymphocyte countOrd ered By: Rimma Bobby on 07-16-2023 Lymphocytes Auto (Unsp spec) [#/Vol] 2.26 10*3/uL 0.83-4.51 [facility] Automated lymphocyte count a s percentage of total leukocytesOrdered By: Rimma Bobby on 07-16-2023 Lymphocytes/100 WBC Auto (Unsp spec) 31.4 % 19-41 [facility] Basophil percentageOrdered B y: Rimma Bobby on 07-16-2023 Basophil percentage 0 [facility] Basophils/100 WBC (Bld) 0.4 % 0-1 [facility] Eosinophils/100 WBC (Bld) 3.3 % 0-5 [facility] Hemoglobin (Bld) [Mass/Vol] 12.2 g/dL 12.0-15.0 [facility] Monocytes/100 WBC (Bld) 6.5 % 0-10 [facility] Neutrophils (Bld) [#/Vol] 4.2 10*3/uL 2.0-7.7 [facility] Neutrophils/100 WBC (Bld) 58.1 % 47-70 [facility] WBC (Bld) [#/Vol] 7.2 10*3/uL 4.4-11.0 [facility] Bilirubin Test strip Ql (U)O rdered By: Rimma Bobby on 07-16-2023 Bilirubin Ql (U) Negative Negative [facility] Blood platelet adequacy dete ction by light microscopyOrdered By: Rimma Bobby on 07-16-2023 Platelets LM Ql (Bld) ADEQUATE ADEQ [facility] Determination of erythrocyte mean corpuscular volume (MCV)Ordered By: Rimma Bobby on 07-16-2023 MCV (RBC) [Entitic vol] 91.1 fL 81-99 [facility] Erythrocyte distribution wid th ratioOrdered By: Rimma Bobby on 07-16-2023 Erythrocyte distribution width (RBC) [Ratio] 13.8 % 11.6-14.6 [facility] Erythrocyte distribution wid th standard deviationOrdered By: Rimma Bobby on 07-16-2023 Erythrocyte distribution width (RBC) [Entitic vol] 46.5 fL 35.1-43.9 [facility] Hematocrit Auto (Bld) [Volum e fraction]Ordered By: Rimma Bobby on 07-16-2023 Hematocrit (Bld) [Volume fraction] 37.8 % 37-47 [facility] Immature granulocytes/100 WB C Auto (Bld)Ordered By: Rimma Bobby on 07-16-2023 Immature granulocytes/100 WBC (Bld) 0.300 % 0.0-0.9 [facility] Comment on above: IG% - Immature Granu locytes (promyelocytes, myelocytes and metamyelocytes) > 1% indicates that a LEFT SHIFT is Present. Ketones Test strip Ql (U)Ord ered By: Rimma Bobby on 07-16-2023 Ketones Ql (U) Negative Negative [facility] Laboratory - Hematology and Cell countsOrdered By: Rimma Bobby on 07-16-2023 Anisocytosis Ql (Bld) RARE [facility] MCH (RBC) [Entitic mass] 29.4 pg 27.0-32.0 [facility] MCHC (RBC) [Mass/Vol] 32.3 g/dL 32-36 [facility] Nucleated RBC/100 WBC (Bld) [Ratio] 0 % 0-5 [facility] Platelet mean volume (Bld) [Entitic vol] 11.3 fL 6.2-12.0 [facility] Platelets (Bld) [#/Vol] 200 10*3/uL 150-450 [facility] Macrocytes detectionOrdered By: Rimma Bobby on 07-16-2023 Macrocytes Ql (Bld) RARE [facility] Mucus LM Ql (Urine sed)Order ed By: Rimma Bobby on 07-16-2023 Mucus Ql (Urine sed) 0 SEEN /hpf [facility] Nitrite Test strip Ql (U)Ord ered By: Rimma Bobby on 07-16-2023 Nitrite Ql (U) Negative Negative [facility] No Panel InformationOrdered By: Rimma Bobby on 07-16-2023 Urine RBC 0 SEEN /hpf 0-5 [facility] Protein Test strip Ql (U)Ord ered By: Rimma Bobby on 07-16-2023 Protein Ql (U) 15 mg/dl Negative [facility] RBC Auto (Bld) [#/Vol]Ordere d By: Rimma Bobby on 07-16-2023 RBC (Bld) [#/Vol] 4.15 10*6/uL 4.2-5.4 [facility] RBC morphologyOrdered By: Lucia Bobby on 07-16-2023 RBC morphology finding Nom (Bld) N CHROM NORMAL NORM C&C [facility] Serum or plasma choriogonado tropin detectionOrdered By: Radha Stark on 07-16-2023 HCG ( test) Ql 1914 mIU/mL <4 [facility] Comment on above: hCG levels with Gest ational AgeGestational Age hCG mIU/mL (IU/L)0.2 - 1 week 5 - 501-2 weeks 50 - 5002-3 weeks 100 - 75667-6 weeks 500 - 348752-4 weeks 1000 - 090735-4 weeks 10766 - 100,0006-8 weeks 82382 - 200,0002-3 months 36806 - 100,000 Squamous epithelial cells de tection in urine sediment by light microscopyOrdered By: Rimma Bobby on 07-16-2023 Epithelial cells.squamous LM Ql (Urine sed) 0 SEEN /hpf 5-10 [facility] Urine blood detectionOrdered By: Rimma Bobby on 07-16-2023 RBC Ql (U) Negative Negative [facility] Urine clarityOrdered By: Kain Bobby on 07-16-2023 Clarity (U) Clear Clear [facility] Urine color determinationOrd ered By: Rimma Bobby on 07-16-2023 Color (U) Yellow Yellow [facility] Urine glucose detectionOrder ed By: Rimma Bobby on 07-16-2023 Glucose Ql (U) Normal mg/dl Normal [facility] Urine leukocyte esterase det ection by dipstickOrdered By: Rimma Bobby on 07-16-2023 Leukocyte esterase Test strip Ql (U) Negative Negative [facility] Urine pHOrdered By: Juliann Bobby on 07-16-2023 pH (U) 6.5 [pH] 5.0 - 8.0 [facility] Urine sediment bacteria coun t by microscopy (number/high power field)Ordered By: Rimma Bobby on 07-16-2023 Bacteria LM.HPF (Urine sed) [#/Area] 0 /[HPF] None Seen [facility] Urine specific gravity measu rementOrdered By: Rimma Bobby on 07-16-2023 Specific gravity (U) [Rel density] 1.020 1.002-1.030 [facility] Urine urobilinogen measureme ntOrdered By: Rimma Bobby on 07-16-2023 Urobilinogen Ql (U) Normal mg/dl Normal [facility] Serum or plasma choriogonado tropin detectionOrdered By: Radha Stark on 07-14-2023 HCG ( test) Ql 1627 mIU/mL <4 [facility] Comment on above: hCG levels with Gest ational AgeGestational Age hCG mIU/mL (IU/L)0.2 - 1 week 5 - 501-2 weeks 50 - 5002-3 weeks 100 - 78001-5 weeks 500 - 835022-0 weeks 1000 - 978021-0 weeks 31290 - 100,0006-8 weeks 92978 - 200,0002-3 months 00692 - 100,000 UA DIP, URINE (POC)on 2023 BILIRUBIN UA (POCT) Negative Negative [facility] CLARITY UA (POCT) Clear [facility] COLOR UA (POCT) Yellow [facility] GLUCOSE UA (POCT) Negative Negative mg/dL [facility] Hemoglobin Ql (U) Trace-intact Abnormal Negative [facility] KETONE UA (POCT) Negative Negative mg/dL [facility] LEUKOCYTES UA (POCT) Negative Negative [facility] NITRITE UA (POCT) Negative Negative [facility] PH UA (POCT) 7.0 4.5 - 8.0 [facility] Protein Ql (U) Negative Negative mg/dL [facility] SPECIFIC GRAVITY UA (POCT) 1.010 1.005 - 1.030 [facility] UROBILINOGEN UA (POCT) 0.2 E.U./dL Adia l E.U./dL [facility] No Panel Informationon 12-21 [facility] HCG QUAL UR B/Oon 04-03-2022 status Negative neg - pos [facility] Quality Check Yes [facility] UA DIP, URINE (POC)on 2021 BILIRUBIN UA (POCT) Negative Negative [facility] CLARITY UA (POCT) Clear [facility] COLOR UA (POCT) Yellow [facility] GLUCOSE UA (POCT) Negative Negative mg/dL [facility] HEMOGLOBIN/BLOOD UA (POCT) Trace-intact Abnormal Negative [facility] KETONE UA (POCT) 15 mg/dL Abnormal Negative mg/dL [facility] LEUKOCYTES UA (POCT) Small Abnormal Negative [facility] NITRITE UA (POCT) Positive Abnormal Negative [facility] PH UA (POCT) 7.0 4.5 - 8.0 [facility] Protein Ql (U) Negative Negative mg/dL [facility] SPECIFIC GRAVITY UA (POCT) 1.015 1.005 - 1.030 [facility] UROBILINOGEN UA (POCT) 0.2 E.U./dL Aida l E.U./dL [facility] TSH BLDon 11-15-2021 TSH Qn 0.088 m[IU]/L Low 0.270 - 4.200 mIU/L [facility] Basophil percentageon 2021 WBC (Bld) [#/Vol] 8.0 10*3/uL 4.4-11.0 [facility] Work Phone: Blood erythrocytes count (nu mber/volume)on 08-23-2021 RBC (Bld) [#/Vol] 3.55 10*6/uL 4.2-5.4 [facility] Work Phone: Blood hemoglobin measurement (mass/volume)on 08-23-2021 Hemoglobin (Bld) [Mass/Vol] 10.3 g/dL 12.0-15.0 [facility] Work Phone: Blood platelet mean volumeon 08-23-2021 Platelet mean volume (Bld) [Entitic vol] 10.5 fL 6.2-12.0 [facility] Work Phone: Determination of erythrocyte mean corpuscular volume (MCV)on 08-23-2021 MCV (RBC) [Entitic vol] 89.3 fL 81-99 [facility] Work Phone: Glucose Glucometer (BldC) [M ass/Vol]on 08-23-2021 Glucose [Mass/Vol] 83 mg/dL 74-106 [facility] Work Phone: Comment on above: MANAGEMENT OF PATIEN T CARE PER NURSING PROTOCOL Hematocrit Auto (Bld) [Volum e fraction]on 08-23-2021 Hematocrit (Bld) [Volume fraction] 31.7 % 37-47 [facility] Work Phone: Laboratory - Hematology and Cell countson 08-23-2021 Erythrocyte distribution width (RBC) [Entitic vol] 45.2 fL 35.1-43.9 [facility] Work Phone: [phone] Erythrocyte distribution width (RBC) [Ratio] 14.0 % 11.6-14.6 [facility] Work Phone: [phone] MCH (RBC) [Entitic mass] 29.0 pg 27.0-32.0 [facility] Work Phone: [phone] MCHC Auto (RBC) [Mass/Vol]on 08-23-2021 MCHC (RBC) [Mass/Vol] 32.5 g/dL 32-36 [facility] Work Phone: [phone] Platelets bldon 08-23-2021 Platelets (Bld) [#/Vol] 142 10*3/uL 150-450 [facility] Work Phone: [phone] Absolute lymphocyte counton 08-22-2021 Lymphocytes Auto (Unsp spec) [#/Vol] 2.43 10*3/uL 0.83-4.51 [facility] Work Phone: [phone] Basophil percentageon 2021 Basophils/100 WBC (Bld) 0.3 % 0-1 [facility] Work Phone: Eosinophils/100 WBC (Bld) 1.5 % 0-5 [facility] Work Phone: [phone] Neutrophils (Bld) [#/Vol] 5.3 10*3/uL 2.0-7.7 [facility] Work Phone: [phone] Neutrophils/100 WBC (Bld) 59.9 % 47-70 [facility] Work Phone: Blood lymphocytes/100 leukoc yteson 08-22-2021 Lymphocytes/100 WBC (Bld) 27.5 % 19-41 [facility] Work Phone: Blood monocytes/100 leukocyt eson 08-22-2021 Monocytes/100 WBC (Bld) 10.1 % 0-10 [facility] Work Phone: Laboratory - Hematology and Cell countson 08-22-2021 Immature granulocytes/100 WBC (Bld) 0.700 % 0.0-0.9 [facility] Work Phone: Comment on above: IG% - Immature Granu locytes (promyelocytes, myelocytes and metamyelocytes) > 1% indicates that a LEFT SHIFT is Present. Nucleated RBC/100 WBC (Bld) [Ratio] 0 % 0-5 [facility] Work Phone: Laboratory - Chemistry and C hemistry - challengeon 08-12-2021 Glucose Ql (U) Negative [facility] Work Phone: Laboratory - Urinalysison Protein Ql (U) Negative [facility] Work Phone: Laboratory - Chemistry and C hemistry - challengeon 08-05-2021 Glucose Ql (U) Negative [facility] Work Phone: Laboratory - Urinalysison Protein Ql (U) Negative [facility] Work Phone: No Panel Informationon 08-05 Group B Streptococcus Culture Group B Beta Streptococcus is not isolated. [facility] Work Phone: Laboratory - Chemistry and C hemistry - challengeon 07-22-2021 Glucose Ql (U) Negative [facility] Work Phone: Laboratory - Urinalysison Protein Ql (U) Negative [facility] Work Phone: Laboratory - Chemistry and C hemistry - challengeon 07-08-2021 Glucose Ql (U) Negative [facility] Work Phone: Laboratory - Urinalysison Protein Ql (U) Negative [facility] Work Phone: Laboratory - Hematology and Cell countson 06-27-2021 HbA1c (Bld) [Mass fraction] 5.5 % [facility] Work Phone: Laboratory - Chemistry and C hemistry - challengeon 06-23-2021 Glucose Ql (U) Negative [facility] Work Phone: Laboratory - Urinalysison Protein Ql (U) Negative [facility] Work Phone: No Panel Informationon 06-20 Thyroid Stimulating Hormone (TSH) 2.71 uIU/mL 0.358-3.74 [facility] Work Phone: Quantitative serum or plasma 3 hour gestational glucose tolerance panelon 06-20-2021 Glucose tolerance 3 hours gestational panel See comment [facility] Work Phone: Comment on above: FASTING 86 Col: 06/07 08/26 0701GLUCOSE TOLERANCE TEST FOR Reference Interval 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 Fasting <105 mg/dL 1 hour <190 mg/dl 2 hour <165 mg/dl 3 hour <145 mg/dl 1 HR GLU 187 Col: 06/20/21 0810 2 HR GLU 170 H Col: 06/20/21 0906 3 HR GLU 117 Col: 06/20/21 1006 Absolute lymphocyte counton 06-10-2021 Lymphocytes Auto (Unsp spec) [#/Vol] 0.81 10*3/uL 0.83-4.51 [facility] Work Phone: Basophil percentageon 02-04- 2022 Basophils/100 WBC (Bld) 0.2 % 0-1 [facility] Work Phone: Eosinophils/100 WBC (Bld) 0.3 % 0-5 [facility] Work Phone: Neutrophils (Bld) [#/Vol] 4.4 10*3/uL 2.0-7.7 [facility] Work Phone: Neutrophils/100 WBC (Bld) 76.7 % 47-70 [facility] Work Phone: WBC (Bld) [#/Vol] 5.8 10*3/uL 4.4-11.0 [facility] Work Phone: Blood erythrocytes count (nu mber/volume)on 06-10-2021 RBC (Bld) [#/Vol] 3.47 10*6/uL 4.2-5.4 [facility] Work Phone: [phone] Blood hemoglobin measurement (mass/volume)on 06-10-2021 Hemoglobin (Bld) [Mass/Vol] 11.1 g/dL 12.0-15.0 [facility] Work Phone: Blood lymphocytes/100 leukoc yteson 06-10-2021 Lymphocytes/100 WBC (Bld) 14.0 % 19-41 [facility] Work Phone: Blood monocytes/100 leukocyt eson 06-10-2021 Monocytes/100 WBC (Bld) 8.1 % 0-10 [facility] Work Phone: Blood platelet mean volumeon 06-10-2021 Platelet mean volume (Bld) [Entitic vol] 10.1 fL 6.2-12.0 [facility] Work Phone: [phone] Determination of erythrocyte mean corpuscular volume (MCV)on 06-10-2021 MCV (RBC) [Entitic vol] 93.4 fL 81-99 [facility] Work Phone: Gestational diabetes screen 1-hour screen with 50g oral glucose loadon 06-10-2021 Glucose 1 Hr post 50 g glucose PO [Mass/Vol] 143 mg/dL 70-140 [facility] Work Phone: [phone] Hematocrit Auto (Bld) [Volum e fraction]on 06-10-2021 Hematocrit (Bld) [Volume fraction] 32.4 % 37-47 [facility] Work Phone: [phone] Laboratory - Chemistry and C hemistry - challengeon 06-10-2021 Glucose Ql (U) Negative [facility] Work Phone: [phone] Laboratory - Hematology and Cell countson 06-10-2021 Erythrocyte distribution width (RBC) [Entitic vol] 43.6 fL 35.1-43.9 [facility] Work Phone: [phone] Erythrocyte distribution width (RBC) [Ratio] 12.8 % 11.6-14.6 [facility] Work Phone: [phone] Immature granulocytes/100 WBC (Bld) 0.700 % 0.0-0.9 [facility] Work Phone: Comment on above: IG% - Immature Granu locytes (promyelocytes, myelocytes and metamyelocytes) > 1% indicates that a LEFT SHIFT is Present. MCH (RBC) [Entitic mass] 32.0 pg 27.0-32.0 [facility] Work Phone: Nucleated RBC/100 WBC (Bld) [Ratio] 0 % 0-5 [facility] Work Phone: Laboratory - Urinalysison Protein Ql (U) Negative [facility] Work Phone: [phone] MCHC Auto (RBC) [Mass/Vol]on 06-10-2021 MCHC (RBC) [Mass/Vol] 34.3 g/dL 32-36 [facility] Work Phone: [phone] Platelets bldon 06-10-2021 Platelets (Bld) [#/Vol] 174 10*3/uL 150-450 [facility] Work Phone: Laboratory - Chemistry and C hemistry - challengeon 05-12-2021 Glucose Ql (U) Negative [facility] Work Phone: Free T4 [Mass/Vol] 0.95 ng/dL 0.76-1.[address] [facility] Work Phone: Laboratory - Urinalysison Protein Ql (U) Negative [facility] Work Phone: No Panel Informationon 05-12 Thyroid Stimulating Hormone (TSH) 1.66 uIU/mL 0.358-3.74 [facility] Work Phone: Laboratory - Chemistry and C hemistry - challengeon 04-14-2021 Glucose Ql (U) Negative [facility] Work Phone: Laboratory - Urinalysison Protein Ql (U) Negative [facility] Work Phone: CORONAVIRUS 2019 BY PCRon CORONAVIRUS 2019,PCR NOT DETECTED Normal Not Detected [facility] Comment on above: Result Comment: . This assay is designed to detect the N, ORF1ab and/or S genes of SARS-CoV-2 via nucleic acid amplification. A Negative (NOT DETECTED) result does not preclude 2019-nCoV infection since the adequacy of sample collection and/or low viral burden may result in presence of viral nucleic acids below the clinical sensitivity of this test method. Negative (NOT DETECTED) result should not be used as the sole basis for treatment or other patient management decisions. Rather negative results should be combined with clinical observations, patient history, and epidemiological information to make patient management decisions. Fact sheet for providers: https://www.fda.gov/media/247181/download Fact sheet for patients: https://www.fda.gov/media/101909/download This test has received FDA Emergency Use Authorization (EUA) and has been verified by [facility] ([facility]). This test is only authorized for the duration of time that circumstances exist to justify the authorization of the emergency use of in vitro diagnostic tests for the detection of SARS-CoV-2 virus and/or diagnosis of COVID-19 infection under section 564(b)(1) of the Act, 21 U.S.C. 360bbb-3(b)(1), unless the authorization is terminated or revoked sooner. [facility] is certified under CLIA-88 as qualified to perform high complexity testing. Testing is performed in the [facility] laboratories [place] [address] [place] [address]. Performed By: #### C OV19 #### [facility] [address] [address] DATE OF SYMPTOM ONSET [YYYYMMDD]? [id number] Normal [facility] Comment on above: Performed By: #### C OV19 #### [facility] [address] [facility] [place] [id number] Covid 19 Resultson 0 Covid 19 Results NEGATIVE COVID-[address] Coronaviruses are common world-wide and are the cause of many common colds. SARS-COV2 is a new coronavirus that began circulating worldwide in 2019 so we are calling it COVID-19. It has been estimated that four out of five patients with COVID-19 will recover at home without the need for medical attention. Symptoms of COVID-19 include cough, fever, shortness of breath, loss of taste or smell and other flu-like symptoms including chills, sore muscles, sore throat, and headache. Severe illness is more common in older people and people with other health problems such as high blood pressure, obesity, and immune system problems. If the test is positive, you have COVID-19. You will be contacted by the ordering physicians office and instructed to remain on home isolation, in accordance with CDC guidelines. You may also be contacted by the [facility] to see if any of your close contacts may have been exposed to the virus and need to quarantine. If the test is negative, you likely do not have COVID-19 at this time, but you still may have a different illness that can spread to other people (like Influenza, or the Flu) and could still be at risk for getting COVID-19. We recommend that you stay away from other people to limit the spread of illness until your symptoms are improving and you are fever-free for 24 hours without the use of fever lowering medications such as acetaminophen or ibuprofen. No test is 100% accurate so if you are still concerned you may have COVID-19, talk to your doctor about the need to continue to stay away from others. Medicines Acetaminophen (Tylenol and others) is generally safe. Anti-inflammatory medications, such as Ibuprofen (Advil or Motrin) or Naproxen (Aleve) can also be used. Uyjv-hyw-vccyvrf cough and cold medicines can be used according to the instructions on the package. Some tbet-qhd-hgjuklh medicines also contain acetaminophen. Make sure you are not taking more than your recommended dose For those not hospitalized, there is no specific treatment available for this illness. Antibiotics do not treat Coronaviruses. Follow-Up Follow up with your doctor by scheduling a virtual visit or consider follow-up at one of our urgent care fever clinics. If you are having difficulty breathing, or are very weak and having difficulty standing, this is a medical emergency. Call 911 or have someone take you to the nearest emergency room immediately. If possible, wear a facemask. Additional guidance from the CDC for patients who tested POSITIVE for COVID-19 How to isolate: Isolate yourself in a specific room at home and limit your contact with others. Use a separate bathroom from other members of the household, when possible. Leave home only to get essential medical care. Do not go to work, school or public areas. Avoid using public transportation, ride-sharing, or taxis. Restrict contact with pets and other animals. If you must care for your pet or be around animals while you are sick, wash your hands before and after your interaction and wear a facemask. Make sure that shared spaces in the home have good airflow, such as by an air conditioner or an opened window, weather permitting. Personal Hygiene Procedures: Wear a face mask when in the same room as other people or pets. If a face mask interferes with your breathing, others should wear a mask when sharing space with you. Frequent hand-washing: wash your hands with soap and water for at least 20 seconds. If soap and water are not available, use alcohol-based hand driver/guide. Avoid touching your eyes, nose, and mouth with unwashed hands. Household Hygiene Procedures: Avoid sharing personal household items such as dishes, glassware, cups, eating utensils, towels or bedding with other people or pets in your home. After use, these items should be washed with soap and hot water. Disinfect all high-touch surfaces every day with antibacterial cleaning solutions such as Lysol wipes, bleach, cleansers, etc. High-touch surfaces include tabletops, doorknobs, bathroom fixtures, toilets, phones, keyboards, tablets and bedside tables. Immediately clean any surfaces that may have blood, poop or body fluids on them, using antibacterial cleaning solutions such as Lysol wipes, bleach, cleansers, etc. If clothing or bedding come into contact with blood, poop or body fluids, they should be washed immediately. Follow the directions on the laundry detergent and clothing labels but hot water is recommended when possible. Stopping home isolation precautions: If possible, consult your doctor before stopping home isolation precautions. According to the CDC, you can discontinue home isolation precautions when you have met both of these criteria: Your fever and respiratory symptoms have been gone for 24 hours without the use of any medicines like ibuprofen (Motrin) and acetaminophen (Tylenol). It has been at least 10 days since your symptoms first appeared. If you are immunosuppressed OR you were admitted to the hospital for this, you should wait until it has been 14 days since your symptoms first appeared. Guidelines for Those Living With and/or Caring For Persons with COVID-19: Read and follow all the recommendations outlined in this handout. Do not permit visitors in the home unless there is an essential need. Wear a facemask when in the same room as the patient. Wear a facemask and gloves (disposable if available) when you touch or have contact with the patient's blood, poop, or body fluids including saliva, phlegm, nasal mucus, vomit or urine. Clean or throw away facemasks and gloves after use and wash your hands with soap and water. You will need to quarantine (stay away from others) for 14 days after your last contact with your family member with COVID-19. The person with COVID-19 is considered contagious 48 hours prior to symptoms beginning (or starting with the day of the positive test if they have no symptoms) for a total of 10 days. Additional resources: [facility] COVID Hotline at 1-473-6ZLTOZW ( ). COVID-19 Careline at (available 24 hours per day, seven days a week if you or a loved one is experiencing anxiety related to the coronavirus pandemic). Clinical research opportunities: is conducting research studies to develop better testing and treatments for COVID. Do you want any information on how to participate Call [phone]. Websites: [facility] or www.CDC.gov Follow My Health / My [facility] (for other test results): Revised 03/23/2020 Electronic Signatures: [employer]SCMS[employer]lou [employer] (ADMIN) (Signature pending) Authored Last Updated: 05-May-2020 09:04 by PSCSnow [employer] (ADMIN) Normal [facility] CORONAVIRUS 2019 BY PCRon Lab Specimen Source Nasal, Nasopharyngeal Normal [facility] Comment on above: Performed By: #### C OV19 #### [facility] [address] [place] [address] Coronavirus 2019 RNA by PCR, Symptomaticon 05-04-2020 When did you start to experience these symptoms [Date and time] [PhenX] [id number] [facility] Work Phone: Coronavirus 2019 RNA by PCR, Symptomatic NOT DETECTED See Below [facility] Work Phone: Comment on above: SOURCE: Nasal, Nasop haryngealReference Range: Not Detected.This assay is designed to detect the N, ORF1ab and/or S genes of SARS-CoV-2 via nucleic acid amplification. A Negative (NOT DETECTED) result does not preclude 2019-nCoV infection since the adequacy of sample collection and/or low viral burden may result in presence of viral nucleic acids below the clinical sensitivity of this test method. Negative (NOT DETECTED) result should not be used as the sole basis for treatment or other patient management decisions. Rather negative results should be combined with clinical observations, patient history, and epidemiological information to make patient management decisions.Fact sheet for providers: https://www.fda.gov/media/301047/downloadFact sheet for patients: https://www.fda.gov/media/038861/downloadThis test has received FDA Emergency Use Authorization (EUA) and has been verified by [facility] ([facility]). This test is only authorized for the duration of time that circumstances exist to justify the authorization of the emergency use of in vitro diagnostic tests for the detection of SARS-CoV-2 virus and/or diagnosis of COVID-19 infection under section 564(b)(1) of the Act, 21 U.S.C. 360bbb-3(b)(1), unless the authorization is terminated or revoked sooner. [facility] is certified under CLIA-88 as qualified to perform high complexity testing. Testing is performed in the [facility] laboratories located at [address] [place] [address]. URINE CULTURE,BACTERIALon URINE CULTURE,BACTERIAL PATIENT: KARRI RAGLAND LOCATION: [facility] BILL#: [id number] : 86 AGE: SEX: F ORDERED BY: KEN DAVIS SOURCE: URINE COLLECTED: 06/26/19 19:29 ANTIBIOTICS AT CANDY.: RECEIVED : 06/27/19 03:24 SITE: Clean Catch/Voided R E S U L T S URINE CULTURE,BACTERIAL FINAL 06/27/19 21:40 NO GROWTH Normal [facility] Comment on above: Performed By: #### [facility] #### [address] [place] [address] THIN PREP IMAGE SEND OUTon 1 THIN PREP IMAGE SEND OUT See Report Normal [facility] Comment on above: Order Comment: Order ed on Fin# [id number] Performed By: #### C [id number] ####[facility] [id number] [place] [address] Medical Director: Kyler Mckeon MD GP HPVon 02-21-2019 GP HPV Negative Normal [facility] Comment on above: Order Comment: Order ed on Fin# [id number] Result Comment: This HPV assay is being performed via a second generation NAAT that utilizes target capture, hand deicer element winder mediated amplification and dual kenetic assay technologies. Performed By: #### C [id number] ####[facility] [id number] [place] [address] Medical Director: Kyler Mckeon MD TSHon 02-19-2019 TSH Qn 1.83 uIU/ml Normal 0.36-3.74 [facility] Comment on above: Order Comment: Order ed on Fin# [id number] Result Comment: High levels of serum biotin may interfere with this test. Performed By: #### 1 [id number] ####[facility] [id number] [place] [address] Medical Director: Kyler Mckeon MD [facility] Office-Progress Notes-Pr ovideron 01-22-2019 Amb Office-Progress Notes-Provider Chief Complaint Here 2 wk pp visit, rLTCS, 01/10/19 5lbs 12oz, IUGR, Oligo, ACH, BF pulled off last of steri-strips today History of Present Illness had repeat c/s 2 weeks ago at [facility]. He had an echo after delivery that was normal. Seeing urology tomorrow for kidneys and to discuss circumcision. Some soreness. She feels some blues but she is a bit overwhelmed with her daughter. She doesn't feel unsafe or like she wants to harm herself or anyone else. Declines contraception. They are going for a weight check next week Breast feeding is going well. Physical Exam Vitals & Measurements Temperature Oral (F): 98 degF (01/22/19 14:53:00) Systolic Blood Pressure: 116 mmHg (01/22/19 14:53:00) Diastolic Blood Pressure: 72 mmHg (01/22/19 14:53:00) Height/Length Measured: 163 cm (01/22/19 14:53:00) Weight Measured: 72.2 kg (01/22/19 14:53:00) Body Mass Index Measured: 27.17 kg/m2 (01/22/19 14:53:00) Depression Screening Scores No Depression Screening data available for this encounter. Fall Risk Assessment Is the patient ambulatory (mobile): Yes (01/22/19 14:53:00) Have you had a fall within the past: No (01/22/19 14:53:00) Have you had 2 or more falls in the past: No (01/22/19 14:53:00) The vital signs were reviewed and are normal General appearance: well developed and well nourished Lungs: Normal respiratory effort, clear to auscultation Extremities: No edema or clubbing Psychiatric: Mood normal: depressed slightly Affect normal: yes Insight and judgement normal: yes incision: healing well. No erythema Lab Results Last Months Labs Last Month Immunology GBS Molecular Testing Screen NEGATIVE 01/13/19 Urine Analysis Glucose Urine Dipstick Negative 01/09/19 Protein Urine Dipstick Negative 01/09/19 Assessment/Plan state Z39.2 Ordered: AMB Care Only Separate Procedure [id number], 01/22/2019 15:08:00 EDT, state / Symmetric IUGR 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 , antepartum / Previous section, 1 Previous section Z98.891 delivered Ordered: AMB Care Only Separate Procedure [id number], 01/22/2019 15:08:00 EDT, state / Symmetric IUGR 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 , antepartum / Previous section, 1 Symmetric IUGR 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 , antepartum O36.5990 delivered Ordered: AMB Care Only Separate Procedure [id number], 01/22/2019 15:08:00 EDT, state / Symmetric IUGR 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 , antepartum / Previous section, 1 Problem List/Past Medical History Ongoing Family h/o transposition of great vessels - needs Echo Hypothyroid Previous section Symmetric IUGR 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 , antepartum Historical Procedure/Surgical History : 01/10/19 Section.: 2017 Medications ferrous sulfate 325 mg (65 mg elemental iron) oral delayed release tablet, 325 mg= 1 tabs, ORAL, DAILY ibuprofen 600 mg oral tablet, 600 mg= 1 tabs, ORAL, [id number] levothyroxine 125 mcg (0.125 mg) oral tablet, 125 mcg= 1 tabs, ORAL, DAILY multivitamin, , 1 tabs, ORAL, DAILY Allergies No Known Allergies Social History Alcohol - Denies Alcohol Use Home/Environment Lives with Spouse. Living situation: Home/Independent. Special/Community resources: None. Mobility prior to admit: Independent. Home Barriers: None. Will patient require additional/new services upon discharge? No. Sexual Sexually active: Yes. Other contraceptive use: PP. Substance Abuse - Denies Substance Abuse Tobacco Never (less than 100 in lifetime) Tobacco Use:. Family History Diabetes..: Father, Grandfather, Grandmother and Other. . Health Maintenance Pending (in the next year) Due Cervical Cancer Screening due 01/22/19 and every Influenza Vaccine due 01/22/19 and every MMR Vaccine Dose 1 due 01/22/19 One-time only Tetanus Vaccine due 01/22/19 and every 10 years Varicella Vaccine Dose 1 due 01/22/19 One-time only Satisfied (in the past 1 year) There are no satisfied recommendations within the defined date range Normal [facility] Cardiolipin Abs-IgG, IgM, Ig Aon 01-15-2019 Cardiolipin Ab, IgA 0 APL Normal 0-11 [facility] Comment on above: Result Comment: INTE RPRETIVE INFORMATION: Cardiolipin Antibodies, IgA 0-11 APL: Negative 12-19 APL: Indeterminate 20-80 APL: Low to Moderately Positive 81 APL or above: High Positive Performed by [facility], [address] [place] [id number] [email or web address], Mitchell Rosado MD - Lab. Director Performed By: #### H EMGB, TSH5, JAMI #### [address] [address] #### B2GMO, LUPUS, CRDLO #### The performing lab is in the report. Cardiolipin Ab, IgG 0 GPL Normal 0-14 [facility] Comment on above: Result Comment: INTE RPRETIVE INFORMATION: Anti-Cardiolipin IgG Ab 0-14 GPL: Negative 15-19 GPL: Indeterminate 20-80 GPL: Low to Moderately Positive 81 GPL or above: High Positive The persistent presence of IgG and/or IgM cardiolipin (CL) antibodies in moderate or high levels (greater than 40 GPL and/or greater than 40 MPL units or greater than 99th percentile) is a laboratory criterion for the diagnosis of antiphospholipid syndrome (APS). Persistence is defined as moderate or high levels of IgG and/or IgM CL antibodies detected in two or more specimens drawn at least 12 weeks apart (J Throm Haemost. 2006;4:295-306). Lower positive levels of IgG and/or IgM CL antibodies (above cutoff but less than 40 GPL and/or less than 40 MPL units) may occur in patients with the clinical symptoms of APS; therefore, the actual significance of these levels is undefined. Results should not be used alone for diagnosis and must be interpreted in light of APS-specific clinical manifestations and/or other criteria phospholipid antibody tests. Performed By: #### H EMGB, TSH5, JAMI #### [address] [place] [address] #### B2GMO, LUPUS, CRDLO #### The performing lab is in the report. Cardiolipin Ab, IgM 29 MPL High 0-12 [facility] Comment on above: Result Comment: INTE RPRETIVE INFORMATION: Anti-Cardiolipin IgM 0-12 MPL: Negative 13-19 MPL: Indeterminate 20-80 MPL: Low to Moderately Positive 81 MPL or above: High Positive The persistent presence of IgG and/or IgM cardiolipin (CL) antibodies in moderate or high levels (greater than 40 GPL and/or greater than 40 MPL units or greater than 99th percentile) is a laboratory criterion for the diagnosis of antiphospholipid syndrome (APS). Persistence is defined as moderate or high levels of IgG and/or IgM CL antibodies detected in two or more specimens drawn at least 12 weeks apart (J Throm Haemost. 2006;4:295-306). Lower positive levels of IgG and/or IgM CL antibodies (above cutoff but less than 40 GPL and/or less than 40 MPL units) may occur in patients with the clinical symptoms of APS; therefore, the actual significance of these levels is undefined. Results should not be used alone for diagnosis and must be interpreted in light of APS-specific clinical manifestations and/or other criteria phospholipid antibody tests. Performed By: #### H EMGB, TSH5, JAMI #### [address] [place] [address] #### B2GMO, LUPUS, CRDLO #### The performing lab is in the report. Lupus Anticoagulant Reflexiv e Panelon 01-15-2019 aPTT Coag (Bld) [Time] Not Applicable Normal 32-48 [facility] Comment on above: Performed By: #### H EMGB, TSH5, JAMI #### [address] [place] [address] #### B2GMO, LUPUS, CRDLO #### The performing lab is in the report. aPTT Coag (Bld) [Time] 40 s Normal 32-48 [facility] Comment on above: Performed By: #### H EMGB, TSH5, JAMI #### [facility] [address] [place], [place] #### B2GMO, LUPUS, CRDLO #### The performing lab is in the report. dRVVT 1:1 Mix Not Applicable Normal 33-44 [facility] Comment on above: Performed By: #### H EMGB, TSH5, JAMI #### [facility] [address] [place], [place] #### B2GMO, LUPUS, CRDLO #### The performing lab is in the report. dRVVT Confirmation Not Applicable Normal Negative [facility] Comment on above: Performed By: #### H EMGB, TSH5, JAMI #### [address] [place], [place] #### B2GMO, LUPUS, CRDLO #### The performing lab is in the report. dRVVT Screen 33 sec Normal 33-44 [facility] Comment on above: Performed By: #### H EMGB, TSH5, JAMI #### [address] [place], [place] #### B2GMO, LUPUS, CRDLO #### The performing lab is in the report. Hexagonal Phospholipid Neutral Reflex Not Applicable Normal Negative [facility] Comment on above: Performed By: #### H EMGB, TSH5, JAMI #### [address] [place], [place] #### B2GMO, LUPUS, CRDLO #### The performing lab is in the report. Lupus Anticoagulant Interpretation See Note Normal [facility] Comment on above: Result Comment: Lupu s anticoagulant not detected. The phospholipid-dependent screening tests (PTT, DRVVT) are not prolonged. Lupus anticoagulant antibodies are heterogeneous and antibody titers fluctuate over time. Laboratory tests used to identify lupus anticoagulants demonstrate variable sensitivity. If there is strong clinical suspicion for antiphospholipid antibody syndrome (APS), consider testing for cardiolipin and beta-2 glycoprotein 1 antibodies (IgG and IgM) if this testing has not already been performed. Performed by [facility], [address] [facility] [address] www.[email or web address], Mitchell Rosado MD - Lab. Director Performed By: #### H EMGB, TSH5, JAMI #### [facility] [address] [place], [place] #### B2GMO, LUPUS, CRDLO #### The performing lab is in the report. PT Coag (PPP) [Time] 12.4 s Normal 12.0-15.5 [facility] Comment on above: Performed By: #### H EMGB, TSH5, JAMI #### [address] [place], [place] #### B2GMO, LUPUS, CRDLO #### The performing lab is in the report. Reptilase Time Not Applicable Normal <=21.9 [facility] Comment on above: Performed By: #### H EMGB, TSH5, JAMI #### [address] [place], [place] #### B2GMO, LUPUS, CRDLO #### The performing lab is in the report. Thrombin Time Not Applicable Normal 14.7-19.5 [facility] Comment on above: Performed By: #### H EMGB, TSH5, JAMI #### [address] [place], [place] #### B2GMO, LUPUS, CRDLO #### The performing lab is in the report. Anti-Nuclear Antibodyon 01-05 JAMI Pattern Fine Speckled Normal [facility] Comment on above: Performed By: #### H EMGB, TSH5, JAMI #### [address] [place], [place] #### B2GMO, LUPUS, CRDLO #### The performing lab is in the report. JAMI Titer 1 : 80 Abnormal <1:40 [facility] Comment on above: Performed By: #### H EMGB, TSH5, JAMI #### [address] [place] [address] #### B2GMO, LUPUS, CRDLO #### The performing lab is in the report. B2 Glycoprot, IgG AND IgMon 01-14-2019 B2 Glycoprot, IgG 0 SGU Normal 0-20 [facility] Comment on above: Performed By: #### H EMGElías, TSH5, JAMI #### [facility] [address] [place] [address] #### B2GMO, LUPUS, CRDLO #### The performing lab is in the report. B2 Glycoprot, IgM 3 SMU Normal 0-20 [facility] Comment on above: Result Comment: INTE RPRETIVE INFORMATION: [id number] I, IgG and IgM Antibody The persistent presence of IgG and/or IgM beta 2 glycoprotein I (B2GPI) antibodies (greater than 99th percentile) is a laboratory criterion for the diagnosis of antiphospholipid syndrome (APS). Persistence is defined as moderate or high levels of IgG and/or IgM B2GPI antibodies detected in two or more specimens drawn at least 12 weeks apart (J Throm Haemost. 2006;4:295-306). B2GPI results greater than 20 SGU (IgG) and/or SMU (IgM) are considered positive based on the cutoff values established for this test. International reference materials and consensus units for anti-B2GPI antibodies have not been established (Clin Vicente Acta. 2012;413(1-2):358-60; Arthritis Rheum. 2012;64(1):1-10.). Strong clinical correlation is recommended for a diagnosis of APS. Low positive IgG and IgM B2GPI antibody levels should be interpreted in light of APS-specific clinical manifestations and/or other criteria phospholipid antibody tests. Performed by [facility], [address] [place] [id number] www.[email or web address], Mitcehll Rosado MD - Lab. Director Performed By: #### H EMGElías, TSH5, JAMI #### [address] [address] #### B2GMO, LUPUS, CRDLO #### The performing lab is in the report. GBS MOLECULAR TESTING SCREEN on 01-13-2019 GBS Molecular Testing Screen Negative Normal [facility] Comment on above: Order Comment: Order ed on [facility]# [id number] Result Comment: The purpose of this test is to detect colonization of Streptococcus Group B (GBS). This GBS assay is being performed using real time and reverse hand deicer element winder Polymerase Chain Reaction (RTPCR ) and (PCR) assays. Performed By: #### [id number] #### [facility] [id number] School Manager: Kyler Mckeon MD Hemoglobinon 01-11-2019 Hemoglobin (Bld) [Mass/Vol] 10.7 g/dL Low 11.7-16.0 [facility] Comment on above: Performed By: #### H EMGB, TSH5, JAMI #### [address] #### B2GMO, LUPUS, CRDLO #### The performing lab is in the report. Hemoglobin (Bld) [Mass/Vol] 10.7 g/dL Low 11.7 - 16 g/dL [place], [place] Interpretation and review of laboratory results Abnormal [place], [place] Test Performed by [facility], [address] [place] [address] TSH WITHOUT REFLEXon 019 TSH Qn 1.102 u[IU]/mL 0.465 - 4.68 u[IU]/mL [place], [place] Test Performed by [facility], [address] [place] [address] Thyroid Stim. Hormoneon Thyroid Stim. Hormone 1.102 u[IU]/mL Normal 0.465-4.68 0 [facility] Comment on above: Performed By: #### H EMGB, TSH5, JAMI #### [address] #### B2GMO, LUPUS, CRDLO #### The performing lab is in the report. Add On Lab Teston 01-10-2019 Sodium [Moles/Vol] Rejected [place], [place] Test Performed by [facility], [address] [place] [address] Add on test from HISon 01-10 Add on test from HIS Rejected Normal [facility] Comment on above: Performed By: #### A DDON #### [address] CBCon 01-10-2019 Interpretation and review of laboratory results Abnormal [place], [place] Test Performed by [facility], [address] [place] [id number] [place], [place] Hemogramon 01-10-2019 Erythrocyte distribution width (RBC) [Ratio] 14.0 % Normal 11.5-14.5 [place], [place] Comment on above: Performed By: #### H EMOG #### [address] Hematocrit (Bld) [Volume fraction] 39.0 % Normal 35.0-47.0 [place] Comment on above: Performed By: #### H EMOG #### [address] Hemoglobin (Bld) [Mass/Vol] 13.2 g/dL Normal 11.7-16.0 [place] Comment on above: Performed By: #### H EMOG #### [address] MCH (RBC) [Entitic mass] 31.4 pg Normal 26.0-34.0 [place] Comment on above: Performed By: #### H EMOG #### [address] MCHC (RBC) [Mass/Vol] 33.8 % Normal 32.0-36.0 [place], [place] Comment on above: Performed By: #### H EMOG #### [address] MCV (RBC) [Entitic vol] 93.0 fL Normal 79.0-98.0 [place], [place] Comment on above: Performed By: #### H EMOG #### [address] Platelet mean volume (Bld) [Entitic vol] 9.3 fL Normal 7.4-10.4 [place], [place] Comment on above: Performed By: #### H EMOG #### [facility] [address] [place], [place] Platelets (Bld) [#/Vol] 183 10*3/uL Normal 140-440 [place], [place] Comment on above: Performed By: #### H EMOG #### [facility] [address] [place], [place] RBC (Bld) [#/Vol] 4.19 10*6/uL Normal 3.80-5.20 [place], [place] Comment on above: Performed By: #### H EMOG #### [address] [address] [place], [place] WBC (Bld) [#/Vol] 14.6 10*3/uL High 3.6-10.7 [place], [place] Comment on above: Performed By: #### H EMOG #### [address] Surgical Pathologyon 019 Surgical Pathology [id number] [facility] PATHOLOGY AND LABORATORY MEDICINE [address] [place] [address] [id number] FINAL SURGICAL PATHOLOGY REPORT NAME: KARRI VILLAVICENCIO : 1990 28 Y F BILLING NO.: [id number] LOCATION: [id number] [id number] 01 PROCEDURE 01/10/2019 DATE: SURGEON: DO ARIANA VO 01/14/2019 DATE: ATTENDING: LAVONNE CHIRINOS MD REPORT DATE: 01/17/2019 COPIES TO: DIAGNOSIS: PLACENTA - 368 GRAM PLACENTA WITH TRIVASCULAR UMBILICAL CORD EXTERNAL MEMBRANES WITH NO EVIDENCE OF CHORIOAMNIONITIS PLACENTAL PARENCHYMA WITH MATURE THIRD TRIMESTER VILLI NEGATIVE FOR VILLOUS EDEMA AND VILLITIS JAW/0RW Signature> ARNOLDO TAYLOR M.D. CLINICAL INFORMATION: Not provided SPECIMEN: PLACENTA, NOS GROSS DESCRIPTION: Placenta Received fresh is a placenta with attached cord and membranes. The membranes are thin and richter-lopes. The membranes appear complete, torn approximately 3 cm from the margin. The surface is blue-richter and lopes in color. The umbilical cord is eccentrically located 1.5 cm from the margin. Blood vessels course over the entire surface from the point of insertion. The umbilical cord segment measures 44 cm in length and averages 1.2 cm in diameter. It demonstrates normal coiling. Upon transection it shows three vessels. The placenta measures 17.5 x 15 x 3.5 cm. Without cord and membranes, the placenta weighs 368 grams. The maternal surface is entirely covered by lobulated, red-brown, well-formed cotyledons. Cut surfaces are soft, spongy, and red-brown. No focal lesions are identified. Pill Maker sections are submitted into four cassettes as follows: block 1 distal umbilical cord and membrane roll; block 2 proximal umbilical cord and membrane roll; block 3 and 4 each contain full thickness section of placenta. (bits ss, 4) MM0/JAF Disclaimer: The following statement applies to all immunohistochemistry, in situ hybridization, molecular studies, and immunofluorescence testing. The use of one or more reagents in the above tests is regulated as an analyte specific reagent (ASR). These tests were developed and their performance characteristics determined by the clinical laboratories of [facility]. They have not been cleared by the US Food and Drug Administration (FDA). The FDA has determined that such clearance or approval is not necessary. All the above immunostains were performed on paraffin embedded tissue. Appropriate positive and negative controls (where applicable) were run in parallel with the patient's specimen; these controls showed expected staining pattern, with acceptable intensity of staining. Immunohistochemical assays have not been validated on decalcified tissues. Results should be interpreted with caution given the raised possibility of false negativity on decalcified specimens. Professional Performing Location: [address] [address] [place] [address]. DEPARTMENT OF PATHOLOGY AND LABORATORY MEDICINE [place], [place] [address] Normal [facility] TS GELon 01-10-2019 TS GEL ABO Group: O Rh, Gel: POS Antibody Screen Gel: NEG Normal [facility] Comment on above: Performed By: #### T SGL #### [address] [address] [place] [address] TYPE AND SCREENon 01-10-2019 Sodium [Moles/Vol] O [place], [place] Sodium [Moles/Vol] Negative [place] Comment on above: Test Performed by [address] [address] [place] [address] Sodium [Moles/Vol] Positive [place], [place] Comment on above: Test Performed by [address] [address] [place] [address] Test Performed by [id number] [place] [address] US GRAVID LIMITED ECHO OFFIC E READon 01-10-2019 US GRAVID LIMITED ECHO OFFICE READ _OB U/S Indication: growth for S Chambers @ 36w 4 d MARGUERITE 02/02/2019 u/s date 01/09/2019 growth GA 33 weeks by parameters FHR 128 Presentation cephalic Placenta anterior G1 MARTI MARTI 6.2 with a 2x2 pocket Umbilical Doppler: S/D 2.10 average mmhg Measurements: BPD 81.1 mm <1 % HC 302.1 mm <1 % AC 298.9 mm 4 % Femur 61.9 mm <1 % EFW 2143 g/ 4 lb 12 oz 2 % Ultrasound findings consistent with IUGR incidental BPP 6/8 no breathing= NST recommended IMPRESSION: 1) IUGR with normal S/D ratio and MARTI 6cm @ 36w3d further evaluation recommended with bpp of 6/8= NST done in office and cat 1 so total bpp 8/10 and reassuring further evaluation by MFM appointment made BMZ 1st dose given in office Normal [facility] Comment on above: Order Comment: Order ed on [facility]# [id number] Result Comment: Tech nologist: DM Dictated By: ASHER BURKETT DO, FACOG Signed By: ASHER BURKETT DO, FACOG Transcribed: 01.10.2019 09:21 Signed Out: 01/10/19 09:21:32 US GRAVID ECHO OFFICE READon 12-13-2018 US GRAVID ECHO OFFICE READ An ultrasound was done to evalute pyelectasis. The fetus was in a vertex presentation. The heart rate was 150 beats per minute. The supplied gestational age was 32 weeks 4 days. The placenta was anterior and grade 1. The amniotic fluid index was 16.3 cm. The biometry showed: BPD 7.7 cm, 30 weeks 6 days, 6% HC 29.7 cm, 32 weeks 6 days, 19% AC 29.7 cm 33 weeks 5 days, 81% FL 5.7 cm, 30 weeks 1 day 2% The composite gestational age was 32 weeks 0 days. The estimated weight was 1947 g or 4 pounds 5 ounces and was in the 32nd percentile. The kidneys were seen and appeared normal. The previously noted pyelectasis resolved. The four chamber heart, stomach and bladder were seen and appear normal. Impression: Chambers intrauterine with normal interval growth. Normal amniotic fluid index. Resolution of pyelectasis. Normal [facility] Comment on above: Order Comment: Order ed on [facility]# [id number] Result Comment: Tech nologist: DM Dictated By: RAMBO ROSALES MD, FACOG Signed By: RAMBO ROSALES MD, FACOG Transcribed: 12.12.2018 23:23 Signed Out: 12/12/18 23:23:59 TSHon 11-28-2018 TSH Qn 0.99 uIU/ml Normal 0.36-3.74 [facility] Comment on above: Order Comment: Order ed on Fin# [id number] Result Comment: High levels of serum biotin may interfere with this test. Performed By: #### 1 [id number] #### [facility] [address] [place] [address] School Manager: Kyler Mckeon MD AUTO DIFFon 10-17-2018 Basophils (Bld) [#/Vol] 0.01 x1000 Normal 0.00-0.20 [facility] Comment on above: Performed By: #### 9 [id number], [id number], [id number] #### [facility] [address] [place] [address] School Manager: Kyler Mckeon MD Basos % 0.1 % Normal [facility] Comment on above: Performed By: #### 9 [id number], [id number], [id number] #### [facility] [address] [place] [address] School Manager: Kyler Mckeon MD Eos Count 0.06 x1000 Normal 0.00-0.50 [facility] Comment on above: Performed By: #### 9 [id number], [id number], [id number] #### [facility] [address] [place], [place] [address] School Manager: Kyler Mckeon MD Eosinophils/100 WBC (Bld) 0.8 % Normal [facility] Comment on above: Performed By: #### 9 746057, 729503, [id number] #### [facility] [address] [place] [address] School Manager: Kyler Mckeon MD Lymphocytes (Bld) [#/Vol] 1.33 x1000 Normal 1.20-4.80 [facility] Comment on above: Performed By: #### 9 [id number], [id number], [id number] #### [facility] [address] [place] [address] School Manager: Kyler Mckeon MD Lymphocytes/100 WBC (Bld) 17.8 % Normal [facility] Comment on above: Performed By: #### 9 [id number], [id number], [id number] #### [facility] [address] [place] [address] School Manager: Kyler Mckeon MD Rice Count 0.40 x1000 Normal 0.10-1.00 [facility] Comment on above: Performed By: #### 9 650353, [id number], [id number] #### [facility] [address] [place] [address] School Manager: Kyler Mckeon MD Monocytes/100 WBC (Bld) 5.3 % Normal [facility] Comment on above: Performed By: #### 9 304553, 939037, [id number] #### [facility] [address] [place] [address] School Manager: Kyler Mckeon MD Neutrophils (Bld) [#/Vol] 5.68 x1000 Normal 1.40-8.80 [facility] Comment on above: Performed By: #### 9 788382, [id number], [id number] #### [facility] [address] [place] [address] School Manager: Kyler Mckeon MD Neutrophils/100 WBC (Bld) 76.0 % Normal [facility] Comment on above: Performed By: #### 9 994245, 387966, [id number] #### [facility] [address] [place] [address] School Manager: Kyler Mckeon MD GGLU 1HRPCon 10-17-2018 1 HR [place] Gestational Glucose 104 mg/dL Low 120-140 [facility] Comment on above: Order Comment: Order ed on Fin# [id number] Result Comment: Smiley puncture should occur prior to sulfasalazine administration due to the potential for falsely depressed results. Venipuncture should occur prior to sulfapyridine administration due to the potential falsely elevated results. Baseline assay values before administration of sulfasalazine and sulfapyridine therapy would not be affected. Performed By: #### 9 [id number], [id number], [id number] #### [facility] [address] [place], [place] [id number] School Manager: Kyler Mckeon MD HEMOon 10-17-2018 DIFF? No Normal [facility] Comment on above: Performed By: #### 9 841576, 528612, [id number] #### [facility] [address] [place] [address] School Manager: Kyler Mckeon MD Erythrocyte distribution width (RBC) [Ratio] 13.4 % Normal 11.5-14.5 [facility] Comment on above: Performed By: #### 9 [id number], 371334, [id number] #### [facility] [address] [place], [place] [address] School Manager: Kyler Mckeon MD Hematocrit (Bld) [Volume fraction] 36.4 % Normal 36.0-46.0 [facility] Comment on above: Performed By: #### 9 335525, 196135, [id number] #### [facility] [address] [place], [place] [address] School Manager: Kyler Mckeon MD Hemoglobin (Bld) [Mass/Vol] 12.4 g/dL Normal 12.0-16.0 [facility] Comment on above: Performed By: #### 9 [id number], 089788, [id number] #### [facility] [address] [place], [place] [address] School Manager: Kyler Mckeon MD MCH (RBC) [Entitic mass] 32.7 pg Normal 27.0-34.0 [facility] Comment on above: Performed By: #### 9 428083, 877546, [id number] #### [facility] [address] [place] [address] School Manager: Kyler Mckeon MD MCHC (RBC) [Mass/Vol] 34.1 g/dL Normal 32.0-37.0 [facility] Comment on above: Performed By: #### 9 375104, 990952, [id number] #### [facility] [address] [place] [address] School Manager: Kyler Mckeon MD MCV (RBC) [Entitic vol] 96.0 fL Normal 80.0-100.0 [facility] Comment on above: Performed By: #### 9 251436, 510327, [id number] #### [facility] [address] [place], [place] [address] School Manager: Kyler Mckeon MD Nucleated RBC (Bld) [#/Vol] 0 /100WBC Normal [facility] Comment on above: Performed By: #### 9 063031, 354914, [id number] #### [facility] [address] [place], [place] [address] School Manager: Kyler Mckeon MD Platelet mean volume (Bld) [Entitic vol] 9.0 fL Normal 7.4-10.4 [facility] Comment on above: Performed By: #### 9 [id number], 696356, [id number] #### [facility] [address] [place] [address] School Manager: Kyler Mckeon MD Platelets (Bld) [#/Vol] 184 x1000 Normal 150-450 [facility] Comment on above: Performed By: #### 9 541337, 102441, [id number] #### [facility] [address] [place] [address] School Manager: Kyler Mckeon MD RBC (Bld) [#/Vol] 3.79 x10 Low 4.20-5.40 [facility] Comment on above: Result Comment: Note : RBC morphology is normal unless otherwise stated. Evaluation performed only if differential is requested. Performed By: #### 9 [id number], 570570, [id number] #### [facility] [address] [place] [address] School Manager: Kyler Mckeon MD WBC (Bld) [#/Vol] 7.5 x10 Normal 4.5-11.0 [facility] Comment on above: Performed By: #### 9 465496, 046259, [id number] #### [facility] [address] [place] [address] School Manager: Kyler Mckeon MD WBC (Bld) [#/Vol] 7.5 10*3/uL Normal [facility] Comment on above: Performed By: #### 9 435122, 525454, [id number] #### [facility] [address] [place] [address] School Manager: Kyler Mckeon MD US GRAVID ECHOon 09-24-2018 US GRAVID ECHO OB ULTRASOUND . Indication: anatomy survey. FINDINGS: There is a single viable intrauterine gestation currently in cephalic. motion and cardiac activity is confirmed during real-time scanning. heart rate is 143 bpm. The placenta is anterior grade 2 in maturity. There is no evidence of placenta previa. There is however a an area of sonolucency seen in the placenta in the superior portion of the placenta persistent on imaging and although this may represent a placental hernandez follow-up is recommended to exclude a small bleed in that area The cervix measures 5 cm in length. No structural abnormalities are seen of the anatomy including head, 4 chamber heart, stomach, bladder, extremities and spine. There is normal insertion of a three-vessel cord. The kidneys have mildly prominent L line measuring approximately 4 mm bilaterally. Since this appears to be a male fetus follow-up is recommended to exclude posterior urethral valves other possibilities. Based on measurements, biparietal diameter of 4.6 cm, head circumference of 17.3 cm, abdominal circumference of 15.5 cm, and femur length of 3.4 cm, the estimated age is 20 weeks 2 days. body weight is 360 grams. The amniotic fluid index is 13.7 cm, which is within normal limits. IMPRESSION: A single live intrauterine with estimated gestational age of 20 weeks 2 days. Other findings as described. The bilateral renal patellae are somewhat prominent and follow-up is recommended. Subtle lucency in the tip of the placenta is noted which is a possible placental hernandez. Follow-up examination of that area can be performed at the time of the examination of the bilateral kidneys. Normal [facility] Comment on above: Order Comment: Order ed on [facility]# [id number] Result Comment: Tech nologist: CARLOS Dictated By: DARIEN FERREIRA MD Signed By: DARIEN FERREIRA MD Signed Out: 09/24/18 16:17:01 C URINEon 09-22-2018 C URINE [facility] [address] [place] [id number] Name: KARRI MARTIN : 1990 Admitting Provider: Gender: Female [facility] [id number] Number: Location: [facility]. Admit 09/20/2018 Date: Discharge 09/20/2018 Date: Microbiology PROCEDURE: C URINE SOURCE: CLEAN CATCH BODY SITE: COLLECTED DATE/TIME: 09/20/2018 10:54 EDT RECEIVED DATE/TIME: 09/21/2018 07:33 EDT START DATE/TIME: 09/21/2018 07:33 EDT FREE TEXT SOURCE: ORDERING PHYSICIAN: ASHER BURKETT DO, FACOG FINAL REPORTS Final Report [] Verified Date/Time: 09/22/2018 12:17 EDT No growth after 24 hours. L=Low, H= High, *= Abnormal, C=Critical, f=Footnote, c=Corrected, i=Interp Data Name: KARRI MARTIN Print Date09/23/2018 17:16 EDT Time: Normal [facility] Comment on above: Performed By: #### 1 [id number] #### [facility] [address] [place], [place] [id number] School Manager: Kyler Mckeon MD ABO, External Resulton 07-25 ABO, External Result Positive [facility], [place] C. Trachomatis, External Res ulton 07-25-2018 C. Trachomatis, External Result Negative [facility], [place] GBS, External Resulton 07-25 GBS, External Result UNKNOWN [facility], [place] HIV, External Resulton 07-25 HIV, External Result Negative [place], [place] Hepatitis B, External Result on 07-25-2018 Hep B, External Result NOT DETECTED [place], [place] Hepatitis C Antibody, Director Of Business Services al Resulton 07-25-2018 Hepatitis C Antibody, External Result Negative [place], [place] N. Gonorrhoeae, External Res ulton 07-25-2018 N. Gonorrhoeae, External Result Negative [facility], [place] Otheron 07-25-2018 PATIENT RECEIVED CAR E AT [facility] EARLY IN , LABS WERE OBTAINED THEN. THIS ORGANIZATION CHANGED ITS NAME TO [facility]. WE ARE OBTAINING A RECORD OF LABS FROM THEM CURRENTLY. RN RECEIVED LABS VIA PHONE FROM NURSE AT [facility]. [facility] [place] RPR, External Labon 07-26-19 19 RPR, External Result NON-REACTIVE Me [place], [place] Rubella Titer, External Resu lton 07-25-2018 Rubella Titer, External Result NON-IMMUNE [facility], [place] Vital Signs Date Time Vital Sign Value Performing Clinician Facility 03-09-2025 10:44-0500 Body height 162.[address] Cain Pretty MD Work Phone: [facility] 03-09-2025 10:44-0500 Body mass index (BMI) [Ratio] 29.8 kg/m2 Dr. Cain Pretty MD Work Phone: 8(554)042-983367 [place] [address] 03-09-2025 10:44-0500 Body weight 78.[address] Cain Pretty MD Work Phone: 9(421)162-396367 [place] [address] 03-09-2025 10:44-0500 Diastolic blood pressure 61 mm[Hg] Dr. Cain Pretty MD Work Phone: 6(243)500-613467 [place] [address] 03-09-2025 10:44-0500 Systolic blood pressure 107 mm[Hg] Dr. Cain Pretty MD Work Phone: 7(631)545-083867 [place] [address] 02-23-2025 09:40-0400 Body mass index (BMI) [Ratio] 29.2 kg/m2 Dr. Cain Pretty MD Work Phone: 0(856)250-368167 [place] [address] 02-23-2025 09:40-0400 Body weight 77.[address] Cain Pretty MD Work Phone: 9(281)566-972867 [place] [address] 02-23-2025 09:40-0400 Diastolic blood pressure 71 mm[Hg] Dr. Cain Pretty MD Work Phone: 6(724)158-190067 [place] [address] 02-23-2025 09:40-0400 Systolic blood pressure 106 mm[Hg] Dr. Cain Pertty MD Work Phone: 4(033)805-908867 [place] [address] 02-09-2025 09:37-0400 Body height 162.[address] Cain Pretty MD Work Phone: 5(898)177-841267 [place] [address] 02-09-2025 09:37-0400 Body mass index (BMI) [Ratio] 29 kg/m2 Dr. Cain Pretty MD Work Phone: 9(570)390-283867 [place] [address] 02-09-2025 09:37-0400 Body weight 76.[address] Cain Pretty MD Work Phone: 4(081)498-200667 [place] [address] 02-09-2025 09:37-0400 Diastolic blood pressure 71 mm[Hg] Dr. Cain Pretty MD Work Phone: 4(454)296-497367 [place] [address] 02-09-2025 09:37-0400 Systolic blood pressure 111 mm[Hg] Dr. Cain Pretty MD Work Phone: 2(044)216-614967 [place] [address] 01-12-2025 14:29-0400 Body height 162.[address] Cain Pretty MD Work Phone: 9(824)318-275167 [place] [address] 01-12-2025 14:29-0400 Body mass index (BMI) [Ratio] 28.5 kg/m2 Dr. Cain Pretty MD Work Phone: 7(826)043-983067 [place] [address] 01-12-2025 14:29-0400 Body weight 75.[address] Cain Pretty MD Work Phone: 9(684)513-873067 [place] [address] 01-12-2025 14:29-0400 Diastolic blood pressure 71 mm[Hg] Dr. Cain Pretty MD Work Phone: 1(808)209-770867 [place] [address] 01-12-2025 14:29-0400 Systolic blood pressure 107 mm[Hg] Dr. Cain Pretty MD Work Phone: 4(451)394-294967 [place] [address] 01-06-2025 16:00-0400 Body height 162.[address] Cain Pretty MD Work Phone: 9(295)877-755567 [place] [address] 01-06-2025 16:00-0400 Body mass index (BMI) [Ratio] 28.3 kg/m2 Dr. Cain Pretty MD Work Phone: 3(970)011-216067 [place] [address] 01-06-2025 16:00-0400 Body weight 74.[address] Cain Pretty MD Work Phone: 2(994)604-004067 [place] [address] 01-06-2025 16:00-0400 Diastolic blood pressure 73 mm[Hg] Dr. Cain Pretty MD Work Phone: 9(859)714-838867 [place] [address] 01-06-2025 16:00-0400 Systolic blood pressure 122 mm[Hg] Dr. Cain Pretty MD Work Phone: 6(087)967-388467 [place] [address] 12-18-2024 14:16-0400 Body height 162.[address] Cain Pretty MD Work Phone: 2(387)225-508167 [place] [address] 12-18-2024 14:13-0400 Body mass index (BMI) [Ratio] 27.8 kg/m2 Dr. Cain Pretty MD Work Phone: 9(850)667-306167 [place] [address] 12-18-2024 14:13-0400 Body weight 73.[address] Cain Pretty MD Work Phone: 3(332)635-274167 [place] [address] 12-18-2024 14:13-0400 Diastolic blood pressure 70 mm[Hg] Dr. Cain Pretty MD Work Phone: 6(957)172-502367 [place] [address] 12-18-2024 14:13-0400 Systolic blood pressure 121 mm[Hg] Dr. Cain Pretty MD Work Phone: 6(950)650-155167 [place] [address] 12-01-2024 10:40-0400 Body height 162.[address] Cain Pretty MD Work Phone: 9(802)390-378867 [place] [address] 12-01-2024 10:40-0400 Body mass index (BMI) [Ratio] 27.7 kg/m2 Dr. Cain Pretty MD Work Phone: 4(755)958-259167 [place] [address] 12-01-2024 10:40-0400 Body weight 73.[address] Cain Pretty MD Work Phone: 0(821)736-482367 [place] [address] 12-01-2024 10:40-0400 Diastolic blood pressure 72 mm[Hg] Dr. Cain Pretty MD Work Phone: 7(583)366-395267 [place] [address] 12-01-2024 10:40-0400 Systolic blood pressure 115 mm[Hg] Dr. Cain Pretty MD Work Phone: 8(012)196-475267 [place] [address] 11-18-2024 10:04-0400 Body height 162.[address] Cain Pretty MD Work Phone: 8(953)140-508867 [place] [address] 11-18-2024 10:04-0400 Body mass index (BMI) [Ratio] 27.3 kg/m2 Dr. Cain Pretty MD Work Phone: 1(549)451-333067 [place] [address] 11-18-2024 10:04-0400 Body weight 72.[address] Cain Pretty MD Work Phone: 1(117)438-858767 [place] [address] 11-18-2024 10:04-0400 Diastolic blood pressure 77 mm[Hg] Dr. Cain Pretty MD Work Phone: 3(770)229-474067 [place] [address] 11-18-2024 10:04-0400 Systolic blood pressure 116 mm[Hg] Dr. Cain Pretty MD Work Phone: 3(249)604-478167 [place] [address] 10-27-2024 11:09-0400 Body height 162.[address] Cain Pretty MD Work Phone: 4(244)631-297667 [place] [address] 10-27-2024 11:09-0400 Body mass index (BMI) [Ratio] 27.6 kg/m2 Dr. Cain Pretty MD Work Phone: 9(049)590-019467 [place] [address] 10-27-2024 11:09-0400 Body weight 73.[address] Cain Pretty MD Work Phone: 8(424)947-297967 [place] [address] 10-27-2024 11:09-0400 Diastolic blood pressure 62 mm[Hg] Dr. Cain Pretty MD Work Phone: 9(907)673-008067 [place] [address] 10-27-2024 11:09-0400 Systolic blood pressure 116 mm[Hg] Dr. Cain Pretty MD Work Phone: 1(061)498-504967 [place] [address] 10-13-2024 08:23-0400 Body height 162.[address] Cain Pretty MD Work Phone: 6(409)920-721267 [place] [address] 10-13-2024 08:23-0400 Body mass index (BMI) [Ratio] 28 kg/m2 Dr. Cain Pretty MD Work Phone: 5(358)501-039367 [place] [address] 10-13-2024 08:23-0400 Body weight 73.[address] Cain Pretty MD Work Phone: 8(889)988-332867 [place] [address] 10-13-2024 08:23-0400 Diastolic blood pressure 74 mm[Hg] Dr. Cain Pretty MD Work Phone: 3(953)789-514567 [place] [address] 10-13-2024 08:23-0400 Systolic blood pressure 122 mm[Hg] Dr. Cain Pretty MD Work Phone: [facility] 10-09-2024 10:21-0400 Body mass index (BMI) [Ratio] 28.06 kg/m2 Gualberto Swank BONDERITE OPERATOR.GRAIN THRESHER Work Phone: [facility] 10-09-2024 10:21-0400 Body temperature 98.49 [degF] Gualberto Swank BONDERITE OPERATOR.GRAIN THRESHER Work Phone: [facility] 10-09-2024 10:21-0400 Body weight 73 kg Gualberto Swank BONDERITE OPERATOR.GRAIN THRESHER Work Phone: [facility] 10-09-2024 10:21-0400 Diastolic blood pressure 60 mm[Hg] Gualberto Swank BONDERITE OPERATOR.GRAIN THRESHER Work Phone: [facility] 10-09-2024 10:21-0400 Heart rate 69 /min Gualberto Swank BONDERITE OPERATOR.GRAIN THRESHER Work Phone: [facility] 10-09-2024 10:21-0400 Respiratory rate 18 /min Gualberto Swank BONDERITE OPERATOR.GRAIN THRESHER Work Phone: [facility] 10-09-2024 10:21-0400 SaO2% (BldA) [Mass fraction] 100 % Gualberto Swank BONDERITE OPERATOR.GRAIN THRESHER Work Phone: [facility] 10-09-2024 10:21-0400 Systolic blood pressure 107 mm[Hg] Gualberto Swank BONDERITE OPERATOR.GRAIN THRESHER Work Phone: [facility] 05-19-2024 11:13050 Body height 162.[address] Cain Pretty MD Work Phone: [facility] 05-19-2024 11:050 Body mass index (BMI) [Ratio] 27.8 kg/m2 Dr. Cain Pretty MD Work Phone: [facility] 05-19-2024 11:130500 Body weight 73.[address] Cain Pretty MD Work Phone: [facility] [facility] 05-19-2024 11:13-0500 Diastolic blood pressure 83 mm[Hg] Dr. Cain Pretty MD Work Phone: 4(038)547-337067 [place] [address] 05-19-2024 11:13-0500 Systolic blood pressure 121 mm[Hg] Dr. Cain Pretty MD Work Phone: 3(222)820-880667 [place] [address] 04-21-2024 16:49-0500 Body temperature 98.4 [degF] Dr. Cain Pretty MD Work Phone: 4(617)183-636567 [place] [address] 04-21-2024 16:49-0500 Diastolic blood pressure 73 mm[Hg] Dr. Cain Pretty MD Work Phone: 0(891)597-098767 [place] [address] 04-21-2024 16:49-0500 Heart rate 64 /min Dr. Cain Pretty MD Work Phone: 5(037)823-239767 [place] [address] 04-21-2024 16:49-0500 Respiratory rate 16 /min Dr. Cain Pretty MD Work Phone: 2(153)404-904667 [place] [address] 04-21-2024 16:49-0500 SaO2% (BldA) [Mass fraction] 100 % Dr. Cain Pretty MD Work Phone: 9(644)248-374767 [place] [address] 04-21-2024 16:49-0500 Systolic blood pressure 126 mm[Hg] Dr. Cain Pretty MD Work Phone: 0(636)844-634467 [place] [address] 04-21-2024 12:17-0500 Body mass index (BMI) [Ratio] 27.4 kg/m2 Dr. Cain Pretty MD Work Phone: 3(562)183-219167 [place] [address] 04-21-2024 12:17-0500 Body weight 72.[address] Cain Pretty MD Work Phone: 3(848)211-716767 [place] [address] 04-21-2024 08:07-0500 Body mass index (BMI) [Ratio] 28 kg/m2 Dr. Cain Pretty MD Work Phone: 8(746)687-440967 [place] [address] 04-21-2024 08:07-0500 Body weight 74.[address] Cain Pretty MD Work Phone: 5(350)945-203867 [place] [address] 04-21-2024 08:07-0500 Diastolic blood pressure 77 mm[Hg] Dr. Cain Pretty MD Work Phone: 6(930)706-815467 [place] [address] 04-21-2024 08:07-0500 Systolic blood pressure 117 mm[Hg] Dr. Cain Pretty MD Work Phone: 3(084)673-926267 [place] [address] 04-20-2024 19:57-0500 Body mass index (BMI) [Ratio] 28.5 kg/m2 Dr. Cani Pretty MD Work Phone: 9(607)189-342567 [place] [address] 04-20-2024 19:57-0500 Body temperature 97.4 [degF] Dr. Cain Pretty MD Work Phone: 3(504)723-649567 [place] [address] 04-20-2024 19:57-0500 Body weight 75.[address] Cain Pretty MD Work Phone: 5(812)407-244067 [place] [address] 04-20-2024 19:57-0500 Diastolic blood pressure 70 mm[Hg] Dr. Cain Pretty MD Work Phone: 0(996)091-822067 [place] [address] 04-20-2024 19:57-0500 Heart rate 72 /min Dr. Cain Pretty MD Work Phone: 8(189)289-206167 [place] [address] 04-20-2024 19:57-0500 Respiratory rate 18 /min Dr. Cain Pretty MD Work Phone: 5(663)687-623367 [place] [address] 04-20-2024 19:57-0500 SaO2% (BldA) [Mass fraction] 100 % Dr. Cain Pretty MD Work Phone: 6(822)811-605067 [place] [address] 04-20-2024 19:57-0500 Systolic blood pressure 120 mm[Hg] Dr. Cain Pretty MD Work Phone: 2(455)189-402267 [place] [address] 03-31-2024 15:02-0500 Body mass index (BMI) [Ratio] 27.9 kg/m2 Dr. Cain Pretty MD Work Phone: 4(277)612-743667 [place] [address] 03-31-2024 15:02-0500 Body weight 73.[address] Cain Pretty MD Work Phone: [facility] 03-31-2024 15:02-0500 Diastolic blood pressure 61 mm[Hg] Dr. Cain Pretty MD Work Phone: [facility] 03-31-2024 15:02-0500 Systolic blood pressure 102 mm[Hg] Dr. Cain Pretty MD Work Phone: 8(902)273-873166 [place] [address] 01-30-2024 12:55-0400 Body height 161.3 cm Cain Pretty MD Work Phone: 0(451)546-379491 [place] [address] 01-30-2024 12:55-0400 Body mass index (BMI) [Ratio] 28.25 kg/m2 Cain Pretty MD Work Phone: 9(252)098-748391 [place] [address] 01-30-2024 12:55-0400 Body weight 73.48 kg Cain Pretty MD Work Phone: 9(565)609-548991 [place] [address] 01-30-2024 12:55-0400 Diastolic blood pressure 82 mm[Hg] Cain Pretty MD Work Phone: 3(182)598-135591 [place] [address] 01-30-2024 12:55-0400 Heart rate 60 /min Cain Pretty MD Work Phone: [facility] 01-30-2024 12:55-0400 Respiratory rate 16 /min Cain Pretty MD Work Phone: 8(376)106-023891 [place] [address] 01-30-2024 12:55-0400 Systolic blood pressure 118 mm[Hg] Cain Pretty MD Work Phone: [facility] 07-19-2023 12:56-0400 Body height 162.[address] Cain Pretty Work Phone: 0(478)516-236966 [place] [address] 07-19-2023 12:55-0400 Body mass index (BMI) [Ratio] 26.2 kg/m2 Dr. Cain Pretty Work Phone: 8(288)695-430666 [place] [address] 07-19-2023 12:55-0400 Body weight 69.[address] Cain Pretty Work Phone: 9(893)478-849566 [place] [address] 07-19-2023 12:55-0400 Diastolic blood pressure 81 mm[Hg] Dr. Cain Pretty Work Phone: [facility] 07-19-2023 12:55-0400 Systolic blood pressure 114 mm[Hg] Dr. Cain Pretty Work Phone: [facility] 07-16-2023 21:14-0400 Body temperature 98 [degF] [facility] 07-16-2023 21:14-0400 Diastolic blood pressure 68 mm[Hg] [facility] 07-16-2023 21:14-0400 Heart rate 73 /min [facility] 07-16-2023 21:14-0400 Respiratory rate 18 /min [facility] 07-16-2023 21:14-0400 SaO2% (BldA) [Mass fraction] 100 % [facility] 07-16-2023 21:14-0400 Systolic blood pressure 143 mm[Hg] [facility] 07-16-2023 18:11-0400 Body height 162.56 cm [facility] 07-16-2023 18:11-0400 Body mass index (BMI) [Ratio] 26.6 kg/m2 [facility] 07-16-2023 18:11-0400 Body weight 70.3 kg [facility] 07-14-2023 11:25-0500 Body temperature 98.49 [degF] Choco Mo MD Work Phone: [facility] 07-14-2023 11:25-0500 Body weight 70.5 kg Choco Mo MD Work Phone: [facility] 07-14-2023 11:25-0500 Diastolic blood pressure 72 mm[Hg] Choco Mo MD Work Phone: [facility] 07-14-2023 11:25-0500 Heart rate 86 /min Choco Mo MD Work Phone: [facility] 07-14-2023 11:25-0500 Respiratory rate 16 /min Choco Mo MD Work Phone: [facility] 07-14-2023 11:25-0500 SaO2% (BldA) [Mass fraction] 99 % Choco Mo MD Work Phone: [facility] 07-14-2023 11:25-0500 Systolic blood pressure 118 mm[Hg] Choco Mo MD Work Phone: [facility] 06-29-2023 09:40-0500 Body weight 69.4 kg Cain Pretty MD Work Phone: [facility] 06-29-2023 09:40-0500 Diastolic blood pressure 74 mm[Hg] Cain Pretty MD Work Phone: [facility] 06-29-2023 09:40-0500 Heart rate 70 /min Cain Pretty MD Work Phone: [facility] 06-29-2023 09:40-0500 Respiratory rate 16 /min Cain Pretty MD Work Phone: [facility] 06-29-2023 09:40-0500 SaO2% (BldA) [Mass fraction] 99 % Cain Pretty MD Work Phone: [facility] 06-29-2023 09:40-0500 Systolic blood pressure 112 mm[Hg] Cain Pretty MD Work Phone: [facility] 05-29-2022 10:00-0500 Body weight 66.68 kg Catarina GRUBBS-C Work Phone: [facility] 05-29-2022 10:00-0500 Diastolic blood pressure 80 mm[Hg] Catarina Lockhart PA-C Work Phone: [facility] 05-29-2022 10:00-0500 Heart rate 89 /min Catarina Lockhart PA-C Work Phone: [facility] 05-29-2022 10:00-0500 Respiratory rate 16 /min Catarina Lockhart PA-C Work Phone: [facility] 05-29-2022 10:00-0500 SaO2% (BldA) [Mass fraction] 97 % Catarina Lockhart PA-C Work Phone: [facility] 05-29-2022 10:00-0500 Systolic blood pressure 118 mm[Hg] Catarina BRITOC Work Phone: [facility] 04-03-2022 13:46-0500 Body height 162.6 cm Michele Athens BONDERITE OPERATOR.GRAIN THRESHER Work Phone: [facility] 04-03-2022 13:46-0500 Body temperature 98.49 [degF] Michele Athens BONDERITE OPERATOR.GRAIN THRESHER Work Phone: [facility] 04-03-2022 13:46-0500 Body weight 64.86 kg Michele Athens BONDERITE OPERATOR.GRAIN THRESHER Work Phone: [facility] 04-03-2022 13:46-0500 Diastolic blood pressure 61 mm[Hg] Michele Athens BONDERITE OPERATOR.GRAIN THRESHER Work Phone: [facility] 04-03-2022 13:46-0500 Heart rate 91 /min Michele Athens BONDERITE OPERATOR.GRAIN THRESHER Work Phone: [facility] 04-03-2022 13:46-0500 Respiratory rate 16 /min Michele Athens BONDERITE OPERATOR.GRAIN THRESHER Work Phone: [facility] 04-03-2022 13:46-0500 SaO2% (BldA) [Mass fraction] 100 % Michele Athens BONDERITE OPERATOR.GRAIN THRESHER Work Phone: [facility] 04-03-2022 13:46-0500 Systolic blood pressure 108 mm[Hg] Michele Athens BONDERITE OPERATOR.GRAIN THRESHER Work Phone: [facility] 02-01-2022 12:00-0400 Body height 160.5 cm Catarina Lockhart PA-C Work Phone: [facility] 02-01-2022 12:00-0400 Body temperature 97.7 [degF] Catarina Lockhart PA-C Work Phone: [facility] 02-01-2022 12:00-0400 Body weight 64.41 kg Catarina GRUBBS-C Work Phone: [facility] 02-01-2022 12:00-0400 Diastolic blood pressure 68 mm[Hg] Catarina Lockhart PA-C Work Phone: [facility] 02-01-2022 12:00-0400 Heart rate 72 /min Catarina Lockhart PA-C Work Phone: [facility] 02-01-2022 12:00-0400 Respiratory rate 16 /min Catarina Lockhart PA-C Work Phone: [facility] 02-01-2022 12:00-0400 Systolic blood pressure 102 mm[Hg] Catarina Lockhart PA-C Work Phone: [facility] 12-14-2021 17:28-0400 Body temperature 97.11 [degF] Shravan Martin BONDERITE OPERATOR.GRAIN THRESHER Work Phone: [facility] 12-14-2021 17:28-0400 Body weight 65.68 kg Shravan Martin BONDERITE OPERATOR.GRAIN THRESHER Work Phone: [facility] 12-14-2021 17:28-0400 Diastolic blood pressure 70 mm[Hg] Shravan Martin BONDERITE OPERATOR.GRAIN THRESHER Work Phone: [facility] 12-14-2021 17:28-0400 Heart rate 70 /min Shravan Martin BONDERITE OPERATOR.GRAIN THRESHER Work Phone: [facility] 12-14-2021 17:28-0400 Respiratory rate 21 /min Shravan Martin BONDERITE OPERATOR.GRAIN THRESHER Work Phone: [facility] 12-14-2021 17:28-0400 SaO2% (BldA) [Mass fraction] 98 % Shravan Martin BONDERITE OPERATOR.GRAIN THRESHER Work Phone: [facility] 12-14-2021 17:28-0400 Systolic blood pressure 118 mm[Hg] Shravan Martin BONDERITE OPERATOR.GRAIN THRESHER Work Phone: [facility] 08-23-2021 09:08-0400 Body temperature 97.3 [degF] Dr. Cain Pretty Work Phone: [facility] Work Phone: 08-23-2021 09:08-0400 Diastolic blood pressure 64 mm[Hg] Dr. Cain Pretty Work Phone: [facility] Work Phone: 08-23-2021 09:08-0400 Heart rate 71 /min Dr. Cain Pretty Work Phone: [facility] Work Phone: 08-23-2021 09:08-0400 Respiratory rate 16 /min Dr. Cain Pretty Work Phone: [facility] Work Phone: 08-23-2021 09:08-0400 SaO2% (BldA) [Mass fraction] 98 % Dr. Cain Pretty Work Phone: [facility] Work Phone: 08-23-2021 09:08-0400 Systolic blood pressure 107 mm[Hg] Dr. Cain Pretty Work Phone: [facility] Work Phone: 08-22-2021 05:14-0400 Body height 162.[address] Cain Pretty Work Phone: [facility] Work Phone: 08-22-2021 05:14-0400 Body mass index (BMI) [Ratio] 28.8 kg/m2 Dr. Cain Pretty Work Phone: [facility] Work Phone: 08-22-2021 05:14-0400 Body weight 76.[address] Cain Pretty Work Phone: [facility] Work Phone: 08-12-2021 08:53-0400 Body mass index (BMI) [Ratio] 28.7 kg/m2 Dr. Cain Pretty Work Phone: [facility] Work Phone: 08-12-2021 08:53-0400 Body weight 75.[address] Cain Pretty Work Phone: [facility] Work Phone: 08-12-2021 08:53-0400 Diastolic blood pressure 80 mm[Hg] Dr. Cain Pretty Work Phone: [facility] Work Phone: 08-12-2021 08:53-0400 Systolic blood pressure 110 mm[Hg] Dr. Cain Pretty Work Phone: [facility] Work Phone: 08-05-2021 09:24-0400 Body height 162.[address] Cain Pretty Work Phone: [facility] Work Phone: 08-05-2021 09:24-0400 Body mass index (BMI) [Ratio] 28.5 kg/m2 Dr. Cain Pretty Work Phone: [facility] Work Phone: 08-05-2021 09:24-0400 Body weight 75.[address] Cain Pretty Work Phone: [facility] Work Phone: 08-05-2021 09:24-0400 Diastolic blood pressure 78 mm[Hg] Dr. Cain Pretty Work Phone: [facility] Work Phone: 08-05-2021 09:24-0400 Systolic blood pressure 120 mm[Hg] Dr. Cain Pretty Work Phone: [facility] Work Phone: 07-28-2021 11:04-0400 Body height 162.[address] Cain Pretty Work Phone: [facility] Work Phone: 07-28-2021 11:04-0400 Body mass index (BMI) [Ratio] 28.5 kg/m2 Dr. Cain Pretty Work Phone: [facility] Work Phone: 07-28-2021 11:04-0400 Body weight 75.[address] Cain Pretty Work Phone: [facility] Work Phone: 07-28-2021 11:04-0400 Diastolic blood pressure 58 mm[Hg] Dr. Cain Pretty Work Phone: [facility] Work Phone: 07-28-2021 11:04-0400 Systolic blood pressure 100 mm[Hg] Dr. Cain Pretty Work Phone: [facility] Work Phone: 07-22-2021 14:21-0400 Diastolic blood pressure 64 mm[Hg] Dr. Cain Pretty Work Phone: [facility] Work Phone: 07-22-2021 14:21-0400 Systolic blood pressure 122 mm[Hg] Dr. Cain Pretty Work Phone: [facility] Work Phone: 07-22-2021 13:59-0400 Body mass index (BMI) [Ratio] 28.1 kg/m2 Dr. Cain Pretty Work Phone: [facility] Work Phone: 07-22-2021 13:59-0400 Body weight 74.[address] Cain Pretty Work Phone: [facility] Work Phone: 07-08-2021 12:55-0500 Body mass index (BMI) [Ratio] 28 kg/m2 Dr. Cain Pretty Work Phone: [facility] Work Phone: 07-08-2021 12:55-0500 Body weight 74.[address] Cain Pretty Work Phone: [facility] Work Phone: 07-08-2021 12:55-0500 Diastolic blood pressure 64 mm[Hg] Dr. Cain Pretty Work Phone: [facility] Work Phone: 07-08-2021 12:55-0500 Systolic blood pressure 122 mm[Hg] Dr. Cain Pretty Work Phone: [facility] Work Phone: 07-04-2021 23:46-0500 Body weight 72.[address] Cain Pretty Work Phone: [facility] Work Phone: 06-30-2021 10:26-0500 Body weight 72.[address] Cain Pretty Work Phone: [facility] Work Phone: 06-27-2021 12:00-0500 Body mass index (BMI) [Ratio] 27.6 kg/m2 Dr. Cain Pretty Work Phone: [facility] Work Phone: 06-27-2021 12:00-0500 Body temperature 97.4 [degF] Dr. Cain Pretty Work Phone: [facility] Work Phone: 06-27-2021 12:00-0500 Body weight 73.[address] Cain Pretty Work Phone: [facility] Work Phone: 06-27-2021 12:00-0500 Diastolic blood pressure 60 mm[Hg] Dr. Cain Pretty Work Phone: [facility] Work Phone: 06-27-2021 12:00-0500 Heart rate 77 /min Dr. Cain Pretty Work Phone: [facility] Work Phone: 06-27-2021 12:00-0500 Respiratory rate 18 /min Dr. Cain Pretty Work Phone: [facility] Work Phone: 06-27-2021 12:00-0500 SaO2% (BldA) [Mass fraction] 98 % Dr. Cain Pretty Work Phone: [facility] Work Phone: 06-27-2021 12:00-0500 Systolic blood pressure 122 mm[Hg] Dr. Cain Pretty Work Phone: [facility] Work Phone: 06-23-2021 09:23-0500 Body mass index (BMI) [Ratio] 28.7 kg/m2 Dr. Cain Pretty Work Phone: [facility] Work Phone: 06-23-2021 09:23-0500 Body weight 75.[address] Cain Pretty Work Phone: [facility] Work Phone: 06-23-2021 09:23-0500 Diastolic blood pressure 70 mm[Hg] Dr. Cain Pretty Work Phone: [facility] Work Phone: 06-23-2021 09:23-0500 Systolic blood pressure 130 mm[Hg] Dr. Cain Pretty Work Phone: [facility] Work Phone: 06-10-2021 12:09-0500 Body mass index (BMI) [Ratio] 27.8 kg/m2 Dr. Cain Pretty Work Phone: [facility] Work Phone: 06-10-2021 12:09-0500 Body weight 73.[address] Cain Pretty Work Phone: [facility] Work Phone: 06-10-2021 12:09-0500 Diastolic blood pressure 60 mm[Hg] Dr. Cain Pretty Work Phone: [facility] Work Phone: 06-10-2021 12:09-0500 Systolic blood pressure 114 mm[Hg] Dr. Cain Pretty Work Phone: [facility] Work Phone: 05-12-2021 09:20-0500 Body mass index (BMI) [Ratio] 27.8 kg/m2 Dr. Cain Pretty Work Phone: [facility] Work Phone: 05-12-2021 09:20-0500 Body weight 73.[address] Cain Pretty Work Phone: [facility] Work Phone: 05-12-2021 09:20-0500 Diastolic blood pressure 60 mm[Hg] Dr. Cain Pretty Work Phone: [facility] Work Phone: 05-12-2021 09:20-0500 Systolic blood pressure 118 mm[Hg] Dr. Cain Pretty Work Phone: [facility] Work Phone: 04-14-2021 08:43-0500 Body mass index (BMI) [Ratio] 26.6 kg/m2 Dr. Cain Pretty Work Phone: [facility] Work Phone: 04-14-2021 08:43-0500 Body weight 70.[address] Cain Pretty Work Phone: [facility] Work Phone: 04-14-2021 08:43-0500 Diastolic blood pressure 68 mm[Hg] Dr. Cain Pretty Work Phone: [facility] Work Phone: 04-14-2021 08:43-0500 Systolic blood pressure 122 mm[Hg] Dr. Cain Pretty Work Phone: [facility] Work Phone: 05-04-2020 16:43-0500 BMI (Body Mass Index) 22.6 kg/m2 Ruben Carvalho [facility] Work Phone: 05-04-2020 16:43-0500 Body Temperature 98 [degF] Ruben Carvalho [facility] Work Phone: 05-04-2020 16:43-0500 Body weight 63.5 kg Ruben Carvalho [facility] Work Phone: 05-04-2020 16:43-0500 BP Diastolic 82 mm[Hg] Ruben Carvalho [facility] Work Phone: 05-04-2020 16:43-0500 BP Systolic 118 mm[Hg] Ruben Carvalho [facility] Work Phone: 05-04-2020 16:43-0500 BSA (Body Surface Area) 1.72 m2 Ruben Carvalho [facility] Work Phone: 05-04-2020 16:43-0500 Height 167.64 cm Ruben Carvalho [facility] Work Phone: 05-04-2020 16:43-0500 Pulse (Heart Rate) 75 /min Ruben Carvalho [facility] Work Phone: 05-04-2020 16:43-0500 Pulse Oximetry 98 % Ruben Carvalho [facility] Work Phone: 05-04-2020 16:43-0500 Respiratory Rate 17 /min Ruben Carval[facility] Work Phone: 01-13-2019 08:06-0400 Body Temperature 97.59 [degF] Lavonne Felisa[facility], [place] 01-13-2019 08:06-0400 BP Diastolic 67 mm[Hg] [facility] [place] 01-13-2019 08:06-0400 BP Systolic 117 mm[Hg] [facility] [place] 01-13-2019 08:06-0400 Pulse (Heart Rate) 68 /min [facility] [place] 01-13-2019 08:06-0400 Pulse Oximetry 97 % [facility] [place] 01-13-2019 08:06-0400 Respiratory Rate 18 /min [facility] [place] 01-10-2019 15:15-0400 BMI (Body Mass Index) 30.21 kg/m2 [facility] [place] 01-10-2019 15:15-0400 Body weight 79.83 kg [facility] [place] 01-10-2019 15:15-0400 Height 162.6 cm [facility] [place] Encounters Encounter Date Encounter Type Care Provider Facility Start: 03-17-2025 End: 03-17-2025 ambulatory Cain Pretty Facility:[facility] Start: 03-09-2025 End: 03-09-2025 ambulatory Cain Pretty Facility:[facility] Start: 02-23-2025 End: 02-23-2025 Patient encounter procedure Margo DE OLIVEIRA -[facility] Work Phone: Start: 02-23-2025 End: 02-23-[address] Cain Pretty MD Work Phone: -[facility] Start: 02-16-2025 End: 02-16-2025 ambulatory ELEANOR CLARK Facility:[facility] Start: 02-09-2025 End: 02-09-2025 [facility] Start: 02-09-2025 End: 02-09-[address] Cain Pretty MD Work Phone: -[facility] Start: 02-09-2025 End: 02-09-2025 ambulatory Cain Pretty Facility:[facility] Start: 02-05-2025 End: 02-05-2025 ambulatory [facility] Start: 01-27-2025 Encounter for genera l adult medical examination without abnormal findings CAIN PRETTY [facility] Start: 01-27-2025 End: 01-27-2025 ambulatory CAIN PRETTY Facility:[facility] Start: 01-12-2025 End: 01-12-[address] Smiley Madrid MD -[facility] Work Phone: Start: 01-12-2025 End: 01-12-[address] Cain Pretty MD Work Phone: -[facility] Start: 01-10-2025 End: 01-10-2025 ambulatory CAIN PRETTY Facility:[facility] Start: 01-07-2025 End: 01-07-2025 Chart abstracting Cain Pretty MD Work Phone: [facility] Comment on above: Outside Dilc-Iqe-BTL Ordered Start: 01-06-2025 End: 01-06-[address] Smiley Madrid MD -[facility] Work Phone: Start: 01-06-2025 End: 01-06-[address] Cain Pretty MD Work Phone: [facility] Start: 01-06-2025 End: 01-06-2025 ambulatory Cain Pretty Facility:[facility] Start: 12-25-2024 End: 12-25-2024 ambulatory JACKIE BOJORQUEZ [facility] Start: 12-18-2024 End: 12-18-[address] Cain Pretty MD Work Phone: -[facility] Start: 12-18-2024 End: 12-18-[address] Smiley Madrid MD -[facility] Start: 12-18-2024 End: 12-18-[address] Smiley Madrid MD -[facility] Work Phone: Start: 12-18-2024 End: 12-18-[address] Cain Pretty MD Work Phone: -[facility] Start: 12-18-2024 End: 12-18-2024 ambulatory Smiley Madrid Facility:[facility] Start: 12-01-2024 End: 12-01-2024 Patient encounter procedure Margo San EZEQUIEL -[facility] Work Phone: Start: 12-01-2024 End: 12-01-[address] Cain Pretty MD Work Phone: [facility] Start: 11-18-2024 End: 11-18-[address] Jackie Patterson DO -[facility] Work Phone: Start: 11-18-2024 End: 11-18-[address] Cain Pretty MD Work Phone: [facility] Start: 10-29-2024 End: 10-29-2024 Chart abstracting Cain Pretty MD Work Phone: [facility] Comment on above: Outside Qxsc-Him-AYJ Ordered Start: 10-27-2024 End: 10-27-[address] Smiley Madrid MD -[facility] Work Phone: Start: 10-27-2024 End: 10-27-[address] Cain Pretty MD Work Phone: [facility] Work Phone: Start: 10-27-2024 End: 10-27-2024 ambulatory Smiley Madrid Facility:[facility] Start: 10-16-2024 End: 10-28-2024 Chart abstracting Cain Pretty MD Work Phone: [facility] Comment on above: Outside Labs Results Start: 10-13-2024 End: 10-13-[address] Cain Pretty MD Work Phone: [facility] Work Phone: Start: 10-13-2024 End: 10-13-2024 Patient encounter procedure Margo San CN -[facility] Work Phone: Start: 10-13-2024 End: 10-13-2024 Patient encounter procedure Margo San CNM -[facility] Work Phone: Start: 10-13-2024 End: 10-13-[address] Cain Pretty MD Work Phone: [facility] Work Phone: Start: 10-13-2024 End: 10-13-2024 ambulatory Cain Pretty Facility:[facility] Start: 10-09-2024 End: 10-09-2024 Patient encounter procedure Gualberto Joanne FLETCHERGRAIN THRESHER Work Phone: [facility] Comment on above: Burning with urinati on (Primary Dx); Acute cystitis without hematuria Start: 10-09-2024 End: 10-09-2024 ambulatory GUALBERTO HOPKINS Facility:[facility] Start: 09-19-2024 End: 09-22-2024 Follow-up encounter Andreia Viramontes APRN.GRAIN THRESHER [facility] Start: 09-19-2024 End: 09-19-2024 ambulatory CAIN PRETTY Facility:[facility] Start: 08-25-2024 End: 09-18-2024 Refill Cain Pretty MD Work Phone: [facility] Comment on above: Refill Request; Futu re Appointment Start: 07-30-2024 End: 07-30-2024 Chart abstracting Carmelo Aguilar MA [facility] Comment on above: Results (Outside fac ility labs ) Start: 07-21-2024 End: 07-21-2024 ambulatory Cain Pretty MD Work Phone: [facility] Comment on above: TSH blood work Start: 07-21-2024 End: 07-22-2024 Follow-up encounter Cain Pretty MD Work Phone: [facility] [place] Comment on above: Results Start: 07-16-2024 End: 07-16-[address] Cain Pretty MD Work Phone: [facility] Work Phone: Start: 07-16-2024 End: 07-16-[address] Smiley Madrid MD -Lab, [facility] Start: 07-16-2024 End: 07-16-2024 ambulatory Smiley Madrid Facility:[facility] Start: 05-20-2024 End: 05-21-2024 Telephone encounter Cain Pretty MD Work Phone: Family [facility] [place] Comment on above: Results Start: 05-19-2024 End: 05-19-2024 ambulatory CAIN PRETTY [facility] Start: 05-19-2024 End: 05-19-[address] Smiley Madrid MD -[facility] Work Phone: Start: 05-19-2024 End: 05-19-2024 ambulatory Cain Pretty Facility:[facility] Start: 04-25-2024 End: 04-25-2024 Chart abstracting Cain Pretty MD Work Phone: [facility] [place] Comment on above: Outside Uqqs-Nmj-UPN Ordered Start: 04-23-2024 End: 04-24-2024 ambulatory Cain Pretty MD Work Phone: [facility] Comment on above: Miscarriage Start: 04-22-2024 End: 04-22-2024 Chart abstracting Cain Pretty MD Work Phone: [facility] [place] Comment on above: Outside RESIDENTIAL DIRECT SUPPORT PROFESSIONAL Proce dure Start: 04-21-2024 ambulatory Smiley Madrid Faci lity:[facility] Start: 04-21-2024 Non-patient / Non-visit Dr. Castro Madrid MD -[facility] Start: 04-21-2024 End: 04-21-2024 Chart abstracting Cain Pretty MD Work Phone: Family [facility] [place] Comment on above: ER Discharge Summary Start: 04-21-2024 End: 04-21-2024 Admission to same day surgery center Dr. Smiley Madrid MD -[facility] Start: 04-21-2024 End: 04-21-2024 ambulatory Smiley Madrid Facility:[facility] Start: 04-21-2024 End: 04-21-[address] Smiley Madrid MD -[facility] Work Phone: Start: 04-21-2024 End: 04-21-2024 ambulatory Cain Maria De Jesus Facility:[facility] Start: 04-20-2024 End: 04-20-2024 Emergency department patient visit Dr. Aden Goodman MD -Emergency Department Work Phone: Start: 04-04-2024 End: 04-04-2024 Chart abstracting Carmelo Aguilar MA [facility] Comment on above: Results (Outside lab s /) Start: 03-31-2024 End: 03-31-[address] Jackie Patterson DO -Laboratory, Specimen Work Phone: Start: 03-31-2024 End: 03-31-[address] Jackie Patterson DO -[facility] Work Phone: Start: 03-31-2024 End: 03-31-2024 ambulatory Cain Hurtadoey Facility:[facility] Start: 03-31-2024 End: 03-31-2024 ambulatory Jackie Patterson Facility:[facility] Start: 03-21-2024 End: 03-21-2024 Telephone encounter Cain Pretty MD Work Phone: [facility] Comment on above: Results Start: 03-21-2024 End: 03-21-2024 ambulatory Cain Pretty MD Work Phone: [facility] Comment on above: TSH testing Start: 01-30-2024 Encounter for genera l adult medical examination without abnormal findings CAIN PRETTY [facility] Start: 01-30-2024 End: 01-30-2024 Patient encounter procedure Cain Pretty MD Work Phone: [facility] Comment on above: Well adult exam (Norah helen Dx); Acquired hypothyroidism; Anxiety; Encounter for immunization; Encounter for screening for cardiovascular disorders; Encounter for screening for diabetes mellitus; Medication management Start: 01-30-2024 End: 01-30-2024 Patient encounter status Cain Pretty MD Work Phone: [facility] Work Phone: Start: 01-23-2024 End: 01-23-2024 Refill Cain Pretty MD Work Phone: [facility] Comment on above: Refill Request Start: 01-18-2024 End: 01-18-2024 ambulatory CAIN PRETTY [facility] Start: 01-10-2024 End: 01-10-2024 ambulatory Cain Pretty MD Work Phone: [facility] Comment on above: lab work for insuran ce Start: 09-21-2023 Telephone encounter Cain Pretty MD Work Phone: [facility] Comment on above: Results Start: 07-22-2023 Telephone encounter Cain Pretty MD Work Phone: [facility] Comment on above: Results Start: 07-19-2023 Chart abstracting Cain casillas MD Work Phone: [facility] Comment on above: Outside Imaging and ER Start: 07-19-2023 End: 07-19-[address] Cain Pretty Work Phone: [facility] Work Phone: Start: 07-16-2023 End: 07-16-2023 Emergency department patient visit [facility]Emer[facility] Work Phone: Start: 07-16-2023 End: 07-16-[address] Cain Pretty Work Phone: [facility] Work Phone: Start: 07-16-2023 End: 07-16-2023 Patient encounter procedure [facility]Labor[facility] Work Phone: Start: 07-14-2023 End: 07-14-2023 ambulatory [facility] Work Phone: Start: 07-14-2023 End: 07-14-2023 Patient encounter procedure Choco Mo MD Work Phone: [facility] Comment on above: Urinary frequency (P rimary Dx) Start: 06-29-2023 End: 06-29-2023 Patient encounter procedure Cain Pretty MD Work Phone: [facility] Comment on above: Bacterial sinusitis (Primary Dx) Start: 02-01-2023 Patient encounter status Mri ( I-Stat/1.5t) Work Phone: [facility] Work Phone: Start: 01-20-2023 Telephone encounter Cain Pretty MD Work Phone: [facility] Comment on above: Results Start: 01-11-2023 ambulatory Cain mullins MD Work Phone: [facility] Comment on above: Blood work for insur ance Refill Request Start: 12-28-2022 End: 12-28-2022 ambulatory Maryjo Chatman PT Work Phone: [facility] Comment on above: Cervicogenic headach e (Primary Dx) Start: 12-21-2022 End: 12-21-2022 Subsequent hospital visit by physician Mri [facility] (I-Stat/1.5t) Work Phone: Radiology Comment on above: Demyelinating diseas e of central nervous system (HCC) [G37.9] Start: 12-11-2022 End: 12-11-2022 ambulatory Carrington Cornell REGISTERED NURSE AMBULATORY Work Phone: [facility] Comment on above: Cervicogenic headach e (Primary Dx) Start: 12-04-2022 End: 12-04-2022 ambulatory Carrington Cornell REGISTERED NURSE AMBULATORY Work Phone: [facility] Comment on above: Cervicogenic headach e (Primary Dx) Start: 11-30-2022 End: 11-30-2022 ambulatory Carrington Cornell REGISTERED NURSE AMBULATORY Work Phone: [facility] Comment on above: Cervicogenic headach e (Primary Dx) Start: 11-20-2022 End: 11-20-2022 ambulatory Zita Fabianganesh PT, DPT [facility] Comment on above: Cervicogenic headach e (Primary Dx) Start: 10-25-2022 ambulatory Cain mullins MD Work Phone: [facility] Start: 10-25-2022 Patient encounter procedure Cain Pretty MD Work Phone: [facility] Comment on above: 02.01 appointment Start: 10-08-2022 ambulatory Cain mullins MD Work Phone: [facility] [place] Comment on above: eye twitch Start: 07-10-2022 Refill Cain mullins MD Work Phone: [facility] [place] Comment on above: Refill Request Start: 05-31-2022 Telephone encounter Catarina porter PA-C Work Phone: [facility] [place] Comment on above: Results Start: 05-29-2022 End: 05-29-2022 Office outpatient visit 15 minutes Catarina Lockhart PA-C Work Phone: [facility] [place] Comment on above: Urticaria (Primary D x); Dysuria Start: 05-15-2022 Telephone encounter Cain Pretty MD Work Phone: [facility] Comment on above: Erroneous encounter- disregard Start: 05-05-2022 ambulatory Cain mullins MD Work Phone: [facility] Comment on above: UTI infection Start: 04-03-2022 End: 04-03-2022 Office outpatient visit 15 minutes Michele Chow APRN.CNP Work Phone: [facility] Comment on above: Acute cystitis with hematuria (Primary Dx) Start: 02-01-2022 End: 02-01-2022 Patient encounter procedure Catarina Lockhart PA-C Work Phone: [facility] Comment on above: Well adult exam (Norah helen Dx); Anxiety; Acquired hypothyroidism; Immunity status testing Start: 02-01-2022 End: 02-01-2022 Patient encounter status Catarina Lockhart PA-C Work Phone: [facility] Start: 01-18-2022 ambulatory Cain mullins MD Work Phone: [facility] Comment on above: blood work for healt h insurance Start: 12-14-2021 End: 12-14-2021 Patient encounter procedure Shravan King CHELA Work Phone: [facility] Comment on above: Rash (Primary Dx) Start: 12-11-2021 ambulatory Cain mullins MD Work Phone: [facility] Comment on above: Red raised bumps Start: 11-13-2021 ambulatory Cain mullins MD Work Phone: [facility] Comment on above: Thyroid Start: 08-23-2021 Non-patient / Non-visit Dr. Giuseppe Pretty Work Phone: [facility] Start: 08-22-2021 Non-patient / Non-visit Dr. Giuseppe Pretty Work Phone: [facility] Start: 08-22-2021 End: 08-23-2021 Evaluation and management of inpatient Dr. Cain Pretty Work Phone: [facility] Start: 08-21-2021 Non-patient / Non-visit Dr. Giuseppe Pretty Work Phone: [facility] Start: 08-12-2021 End: 08-12-[address] Cain Pretty Work Phone: [facility] Start: 08-05-2021 End: 08-05-[address] Cain Pretty Work Phone: [facility] Start: 08-05-2021 End: 08-05-[address] Cain Pretty Work Phone: [facility]-Laboratory, Specimen Start: 07-29-2021 End: 07-29-[address] Cain Pretty Work Phone: [facility] Ultrasound Start: 07-28-2021 End: 07-28-[address] Cain Pretty Work Phone: [facility] Start: 07-27-2021 End: 08-04-[address] Cain Pretty Work Phone: [facility] Start: 07-22-2021 End: 07-22-[address] Cain Pretty Work Phone: [facility] Start: 07-08-2021 End: 07-08-[address] Cain Pretty Work Phone: [facility] Start: 06-30-2021 End: 07-04-[address] Cain Pretty Work Phone: [facility] Start: 06-27-2021 End: 06-27-[address] Cain Pretty Work Phone: [facility] Endocrinology Start: 06-23-2021 End: 06-23-[address] Cain Pretty Work Phone: [facility] Start: 06-20-2021 End: 06-20-[address] Cain Pretty Work Phone: [facility]Labor[facility] Start: 06-10-2021 End: 06-10-[address] Cain Pretty Work Phone: [facility] Start: 05-12-2021 End: 05-12-[address] Cain Pretty Work Phone: [facility]Laboratory, OP [place]eroy Start: 04-14-2021 End: 04-14-[address] Cain Pretty Work Phone: [facility] Start: 01-31-2021 Patient encounter status Ashely Pretty MD Work Phone: [facility] Work Phone: Start: 05-04-2020 Patient encounter procedure [facility] Work Phone: Start: 02-05-2020 Patient encounter procedure Ruben [facility] Work Phone: Start: 06-26-2019 Patient encounter procedure Ruben Carval[facility] Work Phone: Start: 01-10-2019 End: 01-13-2019 [facility] Start: 06-04-2018 Patient encounter procedure Ruben [facility] Work Phone: Start: 02-01-2016 Patient encounter status Ashely Pretty MD Work Phone: [facility] Work Phone: Procedures Date Procedure Procedure Detail Performing Clinician Start: 02-09-2025 Serologic test for syphilis Dr. Cain Pretty MD Work Phone: Start: 01-06-[address] Ashely Pretty MD Work Phone: Start: 10-27-[address] Ashely Pretty MD Work Phone: Start: 10-27-2024 Hepatitis C antibody measurement Dr. Cain Pretty MD Work Phone: Comment on above: Reactive: Presumptiv e evidence of antibodies to HCV. Follow CDC recommendations for supplemental testing.Non-Reactive: Antibodies to HCV were not detected; does not exclude the possibility of exposure to HCVReactive Results are presumptive evidence of antibodies to HCV. Follow CDC recommendations for supplemental testing.Order confirmation testing: HCV Quant by PCR testing - HCVPCR #[id number] Non Reactive: < 0.8 Equivocal: >/= 0.8 to < 1.0 Reactive: >/= 1.0The [facility] requires that a reactive/equivocal HCV antibody result be sent out for confirmation. HCV Quant by PCR testing. Start: 10-27-[address] Ivy Pretty MD Work Phone: Comment on above: Test Ordered: [id number] TSH Receptor Antibody (TBII)TSH Receptor Antibody (TBII) <0.3 U/L ES Reference Range: .Reference Range:Antibody Titer:<1.0 U/L = Negative1.1 - 1.5 U/L = Equivocal>1.5 U/L = PositivePerformed at: - [facility] [address] [id number] Director: Neil Mosquera MD, Phone: [phone] at: [facility] [id number] Director: Babatunde Fuller PhD, Phone: [phone] Start: 10-27-[address] Cain Pretty MD Work Phone: Comment on above: Antibody Result: Int erpretationNon-Reactive: Non- ImmuneReactive: ImmuneThe following results were obtained with the [employer] Rubella IgG assay. Results from assays of other manufacturers cannot be used interchangeably. Start: 10-27-2024 Serologic test for syphilis Dr. Cain Pretty MD Work Phone: Start: 10-09-2024 Urnls dip stick/tabl et rgnt auto w/o microscopy Gualberto Swank BONDERITE OPERATOR.GRAIN THRESHER Work Phone: Start: 07-16-[address] Cain Pretty MD Work Phone: Comment on above: No lupus anticoagula nt was detected. Start: 07-16-2024 Lupus anticoagulant assay, platelet neutralization method Dr. Cain Pretty MD Work Phone: Start: 07-16-2024 Lupus antico[address] screening test Dr. Cain Pretty MD Work Phone: Start: 07-16-[address] Giuseppe Pretty MD Work Phone: Start: 07-16-2024 Serum IgM anticardio lipin measurement Dr. Cain Pretty MD Work Phone: Comment on above: Negative: <13 Indete rminate: 13 - 20 Low-Med Positive: >20 - 80 High Positive: >80Performed at: [address] [id number] Director: Emery Fenton MD, Phone: [phone] at: [facility] [id number] Director: Babatunde Fuller PhD, Phone: [phone] Start: 03-31-[address] Ashely Pretty MD Work Phone: Start: 07-16-2023 Transvaginal obstetr ic ultrasonography Start: 07-14-2023 Urnls dip stick/tabl et rgnt auto w/o microscopy Tiffanie Mistry BONDERITE OPERATORHuyenGRAIN THRESHER Work Phone: Start: 12-21-2022 Mri brain brain stem w/o w/contrast material Genet Denton PA-C Work Phone: Start: 04-03-2022 End: 04-03-2022 Urnls dip stick/tablet rgnt auto w/o microscopy [facility] Provider Start: 08-22-2021 End: 08-22-[address] Cain Pretty Work Phone: Start: 08-05-2021 Group B Streptococcu s Culture Dr. Cain Pretty Work Phone: Start: 07-29-2021 Ultrasound scan for growth Dr. Cain Pretty Work Phone: Start: 05-04-2020 Follow-up visit Start: 02-05-2020 Follow-up visit Start: 06-26-2019 Follow-up visit Start: 01-11-2019 Assay of thyroid stimulating hormone tsh Aden Amin Work Phone: Start: 01-11-2019 Blood count hemoglobin Aden Amin Work Phone: Start: 01-10-2019 ADD ON LAB TEST Lavonne ScruggsDiaz Work Phone: Start: 01-10-2019 Blood count complete automated Aden Amin Work Phone: Start: 01-10-2019 Blood typing serologic abo Aden Amin Work Phone: Start: 07-25-2018 ABO, EXTERNAL RESULT [facility] Provider Start: 07-25-2018 C. TRACHOMATIS, EXTE RNAL RESULT Historical Provider Start: 07-25-2018 GBS, EXTERNAL RESULT [facility] Provider Start: 07-25-2018 HEPATITIS B, EXTERNA L RESULT Historical Provider Start: 07-25-2018 HEPATITIS C ANTIBODY , EXTERNAL RESULT Historical Provider Start: 07-25-2018 HIV, EXTERNAL RESULT [facility] Provider Start: 07-25-2018 N. GONORRHOEAE, EXTE RNAL RESULT Historical Provider Start: 07-25-2018 RPR, EXTERNAL RESULT [facility] Provider Start: 07-25-2018 RUBELLA TITER, EXTER NAL RESULT Historical Provider H/O: section H/O kalli an section Dr. Cain Pretty Work Phone: Comment on above: x2 Plan RC/S at 39 w eeks with SM. scheduled 08/22 @ 7:30am H/O: section H/O kalli an section Dr. Cain Pretty MD Work Phone: Comment on above: x3 H/O: section H/O kalli an section Dr. Jackie Patterson DO H/O: section H/O kalli an section Dr. Smiley Madrid MD H/O: section Hx of cesa rean section Dr. Cain Pretty MD Work Phone: Comment on above: x3, plans c section x3, plans c section -05/11/25 SM. H/O: section Hx of cesa rean section [facility] H/O: section Hx of cesa rean section Dr. Smiley Madrid MD H/O: section Hx of cesa rean section Dr. Jackie Patterson DO H/O: section Hx of cesa rean section [facility] H/O: section Hx of cesa rean section Dr. Smiley Madrid MD H/O: section Hx of cesa rean section Dr. Smiley Madrid MD H/O: section Hx of cesa rean section Dr. Smiley Madrid MD H/O: section Hx of cesa rean section [facility] H/O: section Hx of cesa rean section [facility] H/O: section Hx of cesa rean section [facility] Plan of Treatment Date Care Activity Detail Author Start: 06-10-2031 Urine microalbumin profile [facility] Start: 02-05-2027 DTaP/Tdap/Td vaccine (3 - Td) DTaP/Tdap/Td vaccine (3 - Td) [place] Start: 02-05-2027 Urine microalbumin profile DTA P,TDAP,TD (3 - Td or Tdap) [facility] Start: 12-15-2025 HPV TESTING HPV TESTING [facility] Start: 12-15-2025 PAP TESTING PAP TESTING [facility] Start: 12-15-2025 Screening for malign ant neoplasm of cervix [facility] Start: 05-11-2025 ambulatory Ambulatory Facility:[facility] Start: 03-21-2025 RSV Vaccine (1 - Ris k 1-dose series) RSV Vaccine (1 - Risk 1-dose series) [facility] Start: 03-09-2025 End: 03-09-2025 Patient encounter procedure Advanced maternal age (AMA) in -[facility] Work Phone: Start: 01-29-2025 Annual PCP Team Investigation Manager kain Disease Visit Annual PCP Team Chronic Disease Visit [facility] Start: 01-27-2025 End: 01-27-2025 Patient encounter procedure 01/27/2025 1:40 PM EDT Office Visit [facility] [place] [address] [place] [id number] Cain Pretty MD [address] [place] [address] est wellness with Labs [facility] [place] Comment on above: est wellness with [facility] Start: 01-12-2025 Measurement of gluco se 2 hours after glucose challenge for glucose tolerance test [facility] Start: 01-12-2025 Serologic test for syphilis [facility] Start: 01-12-2025 [facility] Start: 01-05-2025 End: 04-06-2025 CBC W Auto Differential panel - Blood COMPLETE BLOOD COUNT AND DIFFERENTIAL Lab Routine Acquired hypothyroidism Medication management Expected: 01/05/2025, Expires: 04/06/2025 [facility] Comment on above: Expected: 01/05/2025 , Expires: 04/06/2025 Start: 01-05-2025 End: 04-06-2025 Comprehensive metabolic 2000 panel - Serum or Plasma COMPREHENSIVE METABOLIC PANEL Lab Routine Well adult exam Acquired hypothyroidism Medication management Expected: 01/05/2025, Expires: 04/06/2025 [facility] Comment on above: Expected: 01/05/2025 , Expires: 04/06/2025 Start: 01-05-2025 End: 04-06-2025 Hemoglobin A1c in Blood HEMOGLOBIN A1C Lab Routine Well adult exam Encounter for screening for diabetes mellitus Expected: 01/05/2025, Expires: 04/06/2025 [facility] Comment on above: Expected: 01/05/2025 , Expires: 04/06/2025 Start: 01-05-2025 Influenza vaccination Influenza Vacc ine (#1) [facility] Start: 01-05-2025 End: 04-06-2025 LIPID PANEL, NONFASTING LIPID PANEL, NONFASTING Lab Routine Well adult exam Encounter for screening for cardiovascular disorders Expected: 01/05/2025, Expires: 04/06/2025 [facility] Comment on above: Expected: 01/05/2025 , Expires: 04/06/2025 Start: 01-05-2025 End: 04-06-2025 Thyrotropin [Units/volume] in Serum or Plasma THYROID STIMULATING HORMONE Lab Routine Acquired hypothyroidism Expected: 01/05/2025, Expires: 04/06/2025 [facility] Comment on above: Expected: 01/05/2025 , Expires: 04/06/2025 Start: 12-18-2024 T4 free measurement [facility] Start: 12-18-2024 Thyroid stimulating hormone measurement [facility] Start: 12-18-2024 [facility] Start: 10-27-2024 Bacteria identified in Urine by Culture Urine Culture [facility] Start: 10-27-2024 CBC W Auto Different ial panel - Blood [facility] Start: 10-27-2024 Hepatitis C antibody measurement [facility] Start: 10-27-2024 Procedure [facility] Start: 10-27-2024 Rubella IgG measurement [facility] Start: 10-27-2024 Serologic test for syphilis [facility] Start: 10-27-2024 T4 free measurement [facility] Start: 10-27-2024 Thyroid stimulating hormone measurement [facility] Start: 10-27-2024 [facility] Start: 10-27-2024 [facility] Start: 10-03-2024 [facility] Start: 09-19-2024 End: 12-19-2024 Thyrotropin [Units/volume] in Serum or Plasma THYROID STIMULATING HORMONE Lab Routine Acquired hypothyroidism Expected: 09/19/2024, Expires: 12/19/2024 [facility] Work Phone: Comment on above: Expected: 09/19/2024 , Expires: 12/19/2024 Start: 09-19-2024 End: 09-19-2024 ambulatory 09/19/2024 9:15 AM EDT Results Only [facility] [address] [place] [id number] [facility] Start: 07-18-2024 End: 10-17-2024 Thyrotropin [Units/volume] in Serum or Plasma THYROID STIMULATING HORMONE Lab Routine Acquired hypothyroidism Expected: 07/18/2024, Expires: 10/17/2024 [facility] Work Phone: Comment on above: Expected: 07/18/2024 , Expires: 10/17/2024 Start: 06-29-2024 Annual PCP Team Investigation Manager kain Disease Visit Annual PCP Team Chronic Disease Visit [facility] Start: 05-08-2024 End: 08-07-2024 Thyrotropin [Units/volume] in Serum or Plasma THYROID STIMULATING HORMONE Lab Routine Acquired hypothyroidism Expected: 05/08/2024, Expires: 08/07/2024 [facility] Work Phone: Comment on above: Expected: 05/08/2024 , Expires: 08/07/2024 Start: 05-08-2024 End: 08-07-2024 Thyroxine (T4) free [Mass/volume] in Serum or Plasma T4 FREE/FREE THYROXINE Lab Routine Acquired hypothyroidism Expected: 05/08/2024, Expires: 08/07/2024 [facility] Comment on above: Expected: 05/08/2024 , Expires: 08/07/2024 Start: 05-02-2024 End: 08-01-2024 Thyrotropin [Units/volume] in Serum or Plasma THYROID STIMULATING HORMONE Lab Routine Acquired hypothyroidism Expected: 05/02/2024, Expires: 08/01/2024 [facility] [facility] Work Phone: Comment on above: Expected: 05/02/2024 , Expires: 08/01/2024 Start: 04-21-2024 Ambulation without limitation [facility] Start: 04-21-2024 Medical regimen orde rs management [facility] Start: 04-21-2024 Medication education [facility] Start: 04-21-2024 Patient discharge [facility] Start: 04-21-2024 Procedure discontinued [facility] Start: 04-21-2024 Taking patient vital signs [facility] Start: 04-21-2024 Vital signs measurements [facility] Start: 04-21-2024 [facility] Start: 04-21-2024 Anesthesia incomplete/missed ANES INCOMPL/MISSED AB PX [facility] Start: 04-21-2024 Tx missed f irst trimester surgical CARE OF MISCARRIAGE [facility] Start: 04-20-2024 [facility] Start: 03-31-2024 End: 06-30-2024 Thyrotropin [Units/volume] in Serum or Plasma THYROID STIMULATING HORMONE Lab Routine Acquired hypothyroidism Expected: 03/31/2024, Expires: 06/30/2024 [facility] Work Phone: Comment on above: Expected: 03/31/2024 , Expires: 06/30/2024 Start: 02-02-2024 Annual PCP Team Investigation Manager kain Disease Visit Annual PCP Team Chronic Disease Visit [facility] Start: 02-02-2024 Covid-19 Vaccine (#1) Covid-19 Vacci ne (#1) [facility] Comment on above: Postponed from 08/03 (Declined at this time) Start: 02-02-2024 Covid-19 Vaccine () Covid-19 Vaccine () [facility] Comment on above: Postponed from 01/05 (Declined at this time) Start: 01-30-2024 Depression Screening Depression Scre ening [facility] Comment on above: Postponed from 02/03 (Declined at this time) Start: 01-30-2024 End: 01-30-2024 Patient encounter procedure 01/30/2024 1:00 PM EDT Office Visit [facility] [address] [place] [id number] Cain Pretty MD [address] [place], [place] [id number] [facility] Comment on above: Physical Start: 01-14-2024 End: 01-14-2024 Patient encounter procedure 01/14/2024 10:40 AM EDT Office Visit [facility] [address] [place] [id number] Cain Pretty MD [address] [place], [place] [id number] [facility] Comment on above: Physical Start: 01-10-2024 End: 04-10-2024 CBC W Auto Differential panel - Blood COMPLETE BLOOD COUNT AND DIFFERENTIAL Lab Routine Acquired hypothyroidism Medication management Expected: 01/10/2024, Expires: 04/10/2024 [facility] Comment on above: Expected: 01/10/2024 , Expires: 04/10/2024 Start: 01-10-2024 End: 04-10-2024 Comprehensive metabolic 2000 panel - Serum or Plasma COMPREHENSIVE METABOLIC PANEL Lab Routine Encounter for screening for diabetes mellitus Medication management Expected: 01/10/2024, Expires: 04/10/2024 [facility] Comment on above: Expected: 01/10/2024 , Expires: 04/10/2024 Start: 01-10-2024 End: 04-10-2024 Hemoglobin A1c in Blood HEMOGLOBIN A1C Lab Routine Encounter for screening for diabetes mellitus Expected: 01/10/2024, Expires: 04/10/2024 [facility] Comment on above: Expected: 01/10/2024 , Expires: 04/10/2024 Start: 01-10-2024 End: 04-10-2024 Lipid 1996 panel - Serum or Plasma LIPID PANEL BASIC Lab Routine Encounter for screening for cardiovascular disorders Expected: 01/10/2024, Expires: 04/10/2024 [facility] Work Phone: Comment on above: Expected: 01/10/2024 , Expires: 04/10/2024 Start: 01-10-2024 End: 04-10-2024 Thyrotropin [Units/volume] in Serum or Plasma THYROID STIMULATING HORMONE Lab Routine Acquired hypothyroidism Expected: 01/10/2024, Expires: 04/10/2024 [facility] Comment on above: Expected: 01/10/2024 , Expires: 04/10/2024 Start: 01-06-2024 Covid-19 Vaccine () Covid-19 Vaccine () [facility] Start: 01-06-2024 Influenza vaccination Influenza Vacc ine (#1) [facility] Start: 12-16-2023 Screening for malign ant neoplasm of cervix Cervical Cancer Screening [facility] Start: 10-14-2023 ANNUAL PCP TEAM FISHING FLOATS ASSEMBLER KAIN DISEASE VISIT ANNUAL PCP TEAM CHRONIC DISEASE VISIT [facility] Start: 09-21-2023 End: 12-21-2023 Thyrotropin [Units/volume] in Serum or Plasma TSH BLD Lab Routine Acquired hypothyroidism Expected: 09/21/2023, Expires: 12/21/2023 [facility] Work Phone: Comment on above: Expected: 09/21/2023 , Expires: 12/21/2023 Start: 05-29-2023 ANNUAL PCP TEAM FISHING FLOATS ASSEMBLER KAIN DISEASE VISIT ANNUAL PCP TEAM CHRONIC DISEASE VISIT [facility] Start: 05-07-2023 Behavioral Health Screening Behavioral Health Screening [facility] Start: 05-07-2023 Depression Assessment Depression Ass essment [facility] Start: 03-22-2023 End: 05-22-2023 Thyrotropin [Units/volume] in Serum or Plasma TSH BLD Lab Routine Acquired hypothyroidism Expected: 03/22/2023, Expires: 05/22/2023 [facility] Work Phone: Comment on above: Expected: 03/22/2023 , Expires: 05/22/2023 Start: 02-01-2023 ANNUAL PCP TEAM FISHING FLOATS ASSEMBLER KAIN DISEASE VISIT ANNUAL PCP TEAM CHRONIC DISEASE VISIT [facility] Start: 01-12-2023 End: 03-14-2023 CBC W Auto Differential panel - Blood CBC + DIFF Lab Routine Acquired hypothyroidism Medication management Expected: 01/12/2023, Expires: 03/14/2023 [facility] Work Phone: Comment on above: Expected: 01/12/2023 , Expires: 03/14/2023 Start: 01-12-2023 End: 03-14-2023 Comprehensive metabolic 2000 panel - Serum or Plasma COMP METABOLIC PANEL Lab Routine Acquired hypothyroidism Agitation Medication management Expected: 01/12/2023, Expires: 03/14/2023 [facility] Work Phone: Comment on above: Expected: 01/12/2023 , Expires: 03/14/2023 Start: 01-12-2023 End: 03-14-2023 Hemoglobin A1c in Blood HGB A1C Lab Routine Encounter for screening for diabetes mellitus Expected: 01/12/2023, Expires: 03/14/2023 [facility] Work Phone: Comment on above: Expected: 01/12/2023 , Expires: 03/14/2023 Start: 01-12-2023 End: 03-14-2023 LIPID PANEL, NONFASTING LIPID PANEL, NONFASTING Lab Routine Encounter for screening for cardiovascular disorders Expected: 01/12/2023, Expires: 03/14/2023 [facility] Work Phone: Comment on above: Expected: 01/12/2023 , Expires: 03/14/2023 Start: 01-12-2023 End: 03-14-2023 Thyrotropin [Units/volume] in Serum or Plasma TSH BLD Lab Routine Acquired hypothyroidism Expected: 01/12/2023, Expires: 03/14/2023 [facility] Work Phone: Comment on above: Expected: 01/12/2023 , Expires: 03/14/2023 Start: 01-05-2023 Influenza vaccination [facility] Start: 08-01-2022 End: 10-01-2022 Hepatitis B virus surface Ab [Presence] in Serum HEP B SURF AB QUAL Lab Routine Immunity status testing Expected: 08/01/2022, Expires: 10/01/2022 [facility] Work Phone: Comment on above: Expected: 08/01/2022 , Expires: 10/01/2022 Start: 08-01-2022 End: 10-01-2022 Thyrotropin [Units/volume] in Serum or Plasma TSH BLD Lab Routine Acquired hypothyroidism Expected: 08/01/2022, Expires: 10/01/2022 [facility] Work Phone: Comment on above: Expected: 08/01/2022 , Expires: 10/01/2022 Start: 05-07-2022 DEPRESSION ASSESSMENT DEPRESSION ASS ESSMENT [facility] Start: 05-05-2022 End: 07-05-2022 Bacteria identified in Urine by Culture URINE CULTURE Microbiology Routine Dysuria Expected: 05/05/2022, Expires: 07/05/2022 [facility] Work Phone: Comment on above: Expected: 05/05/2022 , Expires: 07/05/2022 Start: 05-05-2022 End: 07-05-2022 Urinalysis complete panel - Urine URINALYSIS, WITH MICROSCOPIC Lab Routine Dysuria Expected: 05/05/2022, Expires: 07/05/2022 [facility] Work Phone: Comment on above: Expected: 05/05/2022 , Expires: 07/05/2022 Start: 04-03-2022 End: 06-03-2022 Bacteria identified in Urine by Culture URINE CULTURE Microbiology Routine Acute cystitis with hematuria Expected: 04/03/2022, Expires: 06/03/2022 [facility] Work Phone: Comment on above: Expected: 04/03/2022 , Expires: 06/03/2022 Start: 01-31-2022 ANNUAL PCP TEAM FISHING FLOATS ASSEMBLER KAIN DISEASE VISIT ANNUAL PCP TEAM CHRONIC DISEASE VISIT [facility] Start: 01-18-2022 End: 03-20-2022 CBC W Auto Differential panel - Blood CBC + DIFF Lab Routine Medication management Expected: 01/18/2022, Expires: 03/20/2022 [facility] Work Phone: Comment on above: Expected: 01/18/2022 , Expires: 03/20/2022 Start: 01-18-2022 End: 03-20-2022 Hemoglobin A1c in Blood HGB A1C Lab Routine Encounter for screening for diabetes mellitus Expected: 01/18/2022, Expires: 03/20/2022 [facility] Work Phone: Comment on above: Expected: 01/18/2022 , Expires: 03/20/2022 Start: 01-18-2022 End: 03-20-2022 LIPID PANEL, NONFASTING LIPID PANEL, NONFASTING Lab Routine Encounter for screening for cardiovascular disorders Expected: 01/18/2022, Expires: 03/20/2022 [facility] Work Phone: Comment on above: Expected: 01/18/2022 , Expires: 03/20/2022 Start: 01-05-2022 Influenza vaccination INFLUENZA (#1) [facility] Start: 08-22-2021 section Repeat C-Sect ion (Not Applicable) [facility] Work Phone: Start: 05-07-2021 DEPRESSION ASSESSMENT DEPRESSION ASS ESSMENT [facility] Start: 02-03-2015 HPV Vaccine (1 - 3-d ose SCDM series) HPV Vaccine (1 - 3-dose SCDM series) [facility] Start: 02-03-2009 Cervical cancer screen Cervical canc er screen [place], [place] Start: 02-03-2006 Depression Screening Depression Scre ening [facility] Start: 02-03-2003 HIV screen HIV screen [place], [place] Start: 02-03-2001 Varicella Vaccine (1 of 2 - 13+ 2-dose series) Varicella Vaccine (1 of 2 - 13+ 2-dose series) [place], [place] Start: 1988 COVID-19 VACCINE (#1) COVID-19 VACCI NE (#1) [facility] Start: 1988 HEPATITIS B (1 of 3 - 3-dose series) HEPATITIS B (1 of 3 - 3-dose series) [facility] Bacteria identified in Urine by Culture URINE CULTURE Microbiology Routine Dysuria 05/29/2022 10:47 AM EST [facility] Work Phone: Bacteria identified in Urine by Culture URINE CULTURE Microbiology Routine Urinary frequency Ordered: 07/14/2023 [facility] Work Phone: Comment on above: Ordered: 07/14/2023 Bacteria identified in Urine by Culture BACTERIAL CULTURE, URINE Microbiology Routine Burning with urination 10/09/2024 10:46 AM EDT [facility] Work Phone: End: 01-11-2019 Beta-2 GlycoProtein 1 Ab,IGG & IGM Beta-2 GlycoProtein 1 Ab,IGG & IGM Lab Routine One Time for 1 Occurrences starting 01/11/2019 until 01/11/2019 [place], [place] Comment on above: One Time for 1 Occur rences starting 01/11/2019 until 01/11/2019 Beta-2 GlycoProtein 1 Ab,IGG & IGM Beta-2 GlycoProtein 1 Ab,IGG & IGM Lab Routine 01/11/2019 5:06 AM EDT [place], [place] End: 01-11-2019 Cardiolipin Ab IgG, IgM, IgA Cardiolipin Ab IgG, IgM, IgA Lab Routine One Time for 1 Occurrences starting 01/11/2019 until 01/11/2019 [place], [place] Comment on above: One Time for 1 Occur rences starting 01/11/2019 until 01/11/2019 Cardiolipin Ab IgG, IgM, IgA Cardiolipin Ab IgG, IgM, IgA Lab Routine 01/11/2019 5:06 AM EDT [facility] W Auto Different ial panel - Blood [facility] CBC W Auto Different ial panel - Blood [facility] CBC W Auto Different ial panel - Blood [facility] Chlamydia deoxyribon ucleic acid detection [facility] Chlamydia deoxyribon ucleic acid detection [facility] Erythrocyte mean corpuscular volume determination [facility] Hematocrit [Volume Fraction] of Blood [facility] Hemoglobin [Mass/vol ume] in Blood [facility] Hepatitis B surface antigen measurement [facility] Hepatitis B virus whyte rface Ag [Presence] in Serum [facility] Hepatitis C antibody measurement [facility] Hepatitis C antibody measurement [facility] HIV 1+2 Ab+HIV1 p24 Ag [Presence] in Serum or Plasma by Immunoassay [facility] Incentive spirometry Incentive s pirometry Respiratory Care Routine Every 2hr while awake until discontinued starting 01/11/2019 [facility] Comment on above: Every 2hr while awak e until discontinued starting 01/11/2019 Initiate Oxygen Ther apy Protocol [facility] Comment on above: Daily until disconti nued starting 01/10/2019 Daily until disconti nued starting 01/11/2019 Leukocytes [#/volume ] in Blood [facility] End: 01-11-2019 Lupus Anticoagulant Lupus Anticoagulant Lab Routine One Time for 1 Occurrences starting 01/11/2019 until 01/11/2019 [facility] Comment on above: One Time for 1 Occur rences starting 01/11/2019 until 01/11/2019 Lupus Anticoagulant Lupus Antico agulant Lab Routine 01/11/2019 5:06 AM EDT [facility] Mean corpuscular hemoglobin concentration determination [facility] Mean corpuscular hemoglobin determination [facility] Neutrophil count [facility] Neutrophil percent differential count [facility] End: 01-11-2019 Nuclear Ab IF (S) [Titer] JAMI Lab Routine One Time for 1 Occurrences starting 01/11/2019 until 01/11/2019 [facility] Comment on above: One Time for 1 Occur rences starting 01/11/2019 until 01/11/2019 Nuclear Ab IF (S) [Titer] JAMI La b Routine 01/11/2019 5:06 AM EDT [facility], [place] Patient Education [facility] Work Phone: Patient referral [facility] Work Phone: Platelets [#/volume] in Blood [facility] Procedure [facility] PT PLAN OF CARE CERTIFICATION PT PLAN OF CARE CERTIFICATION Procedures Routine Cervicogenic headache Ordered: 11/21/2022 [facility] Comment on above: Ordered: 11/21/2022 Red blood cell count [facility] Red cell distributio n width determination [facility] Rubella IgG measurement [facility] Rubella IgG measurement [facility] Serologic test for syphilis [facility] T4 free measurement [facility] Thyroid stimulating hormone measurement [facility] Treponema sp Ab [Pre sence] in Serum [facility] Urine culture [facility] Immunizations Immunization Date Immunization Notes Care Provider Fa [facility] 03-09-2025 tetanus toxoid, redu maricel diphtheria toxoid, and acellular pertussis vaccine, adsorbed Dr. Cain Pretty MD Work Phone: [facility] 01-30-2024 influenza, seasonal, injectable Cain Pretty MD Work Phone: [facility] 01-30-2024 influenza virus vaccine, unspecified formulation Cain Pretty MD Work Phone: [facility] 02-01-2023 influenza, injectabl e, quadrivalent, contains preservative Cain Pretty MD Work Phone: [facility] 02-01-2023 influenza virus vaccine, unspecified formulation Cain Pretty MD Work Phone: [facility] 06-10-2021 tetanus toxoid, redu maricel diphtheria toxoid, and acellular pertussis vaccine, adsorbed Dr. Cain Pretty Work Phone: [facility] 06-10-2021 diphtheria, tetanus toxoids and acellular pertussis vaccine, unspecified formulation Dr. Cain Pretty Work Phone: [facility] Work Phone: 01-31-2021 influenza, injectabl e, quadrivalent, contains preservative Cain Pretty MD Work Phone: [facility] 01-31-2021 influenza virus vaccine, unspecified formulation Cain Pretty MD Work Phone: [facility] 01-29-2020 influenza, injectabl e, quadrivalent, contains preservative Cain Pretty MD Work Phone: [facility] 01-13-2019 measles, mumps and rubella virus vaccine [facility] 01-11-2019 influenza, injectabl e, quadrivalent, preservative free [facility], [place] 01-11-2019 influenza quadrivale nt split vaccine (FLUZONE;FLUARIX;FLULAV AL;AFLURIA) injection 0.5 mL [facility], [place] 01-11-2019 diphtheria, tetanus toxoids and acellular pertussis vaccine, unspecified formulation [facility] 01-11-2019 measles, mumps and rubella virus vaccine [facility] [place] 11-28-2018 tetanus toxoid, redu maricel diphtheria toxoid, and acellular pertussis vaccine, adsorbed Catarina Lockhart PA-C Work Phone: [facility] 04-04-2017 influenza, seasonal, injectable Cain Pretty MD Work Phone: [facility] 02-05-2017 tetanus toxoid, redu maricel diphtheria toxoid, and acellular pertussis vaccine, adsorbed Cain Pretty MD Work Phone: [facility] 04-20-2014 tetanus toxoid, redu maricel diphtheria toxoid, and acellular pertussis vaccine, adsorbed Cain Prtety MD Work Phone: [facility] 09-13-2006 meningococcal polysaccharide (groups A, C, Y and W-135) diphtheria toxoid conjugate vaccine (MCV4P) Ctaarina Lockhart PA-C Work Phone: [facility] NEGATED: Highlighted row has not occurred!01-13-2019 tetanus toxoid, reduced diphtheria toxoid, and acellular pertussis vaccine, adsorbed Lavonne Carenchristine[facility], [place] Payers Date Payer Category Payer Self-pay [id number] 2019 Private Health Insurance [facility] UMR CHOICE PLUS [id number] 2019-Present [phone] [address] [address] [place] [address] HMO [id number] 2019 Private Health Insurance [id number] 2019 Unknown [id number] 1988 Unknown [id number] 2.16.840.1.720099.3.579. 2.479 1988 Unknown [id number] 2.16840.1.917162.3.579. 2.479 Unknown [id number] 2.840.1.195677.3.579. 2.462 Unknown [id number] 2.16840.1.060754.3.579. 2.462 Unknown [id number] 2.16.840.1.267129.3.579. 2.462 Unknown [id number] 2.16.840.1.599262.3.579. 2.462 Unknown [id number] 2.16.840.1.384990.3.579. 2.462 Unknown [id number] 2.16840.1.658057.3.579. 2.462 Unknown [id number] 2.16.840.1.469123.3.579. 2.462 Unknown [id number] 2.16.840.1.341921.3.579. 2.462 Unknown [id number] 2.16.840.1.225591.3.579. 2.462 Unknown [id number] 2.16.840.1.286573.3.579. 2.462 Unknown [id number] 2.16.840.1.055829.3.579. 2.462 Unknown [id number] 2.16.840.1.439480.3.579. 2.462 Unknown [id number] 2.840.1.522199.3.579. 2.462 Unknown [id number] 2.840.1.733462.3.579. 2.462 Unknown [id number] 2.840.1.877092.3.579. 2.462 Unknown [id number] 2.840.1.073299.3.579. 2.462 Unknown [id number] 2.16840.1.845448.3.579. 2.462 Unknown [id number] 2.16.840.1.889781.3.579. 2.462 Unknown [id number] 2.840.1.522588.3.579. 2.462 Unknown [id number] 2.840.1.156783.3.579. 2.462 Unknown [id number] 2.16840.1.393228.3.579. 2.462 Unknown [id number] 2.16.840.1.170297.3.579. 2.462 Unknown [id number] 2.16.840.1.151704.3.579. 2.462 Unknown [id number] 2.16.840.1.536612.3.579. 2.462 Unknown [id number] 2.840.1.812872.3.579. 2.462 Unknown [id number] 2.16.840.1.137711.3.579. 2.462 Unknown [id number] 2.16.840.1.548505.3.579. 2.462 Social History Date Type Detail Facility Start: 01-10-2019 End: 07-19-2023 Tobacco smoking status ILIS Unknown if ever smoked [facility] Start: 01-10-2019 End: 10-13-2022 Alcohol intake Never [facility] Start: 01-10-2019 End: 05-29-2022 History SDOH Alcohol Frequency 1 [facility] Sex Assigned At Not on file [facility] Start: 1990 Sex Assigned At Female [facility] Work Phone: Start: 04-20-2014 End: 01-06-2025 Tobacco smoking status NHIS Never smoked tobacco [facility] Start: 04-20-2014 End: 12-14-2021 Tobacco use and exposure Smokeless tobacco non-user [facility] Start: 06-17-2021 End: 10-28-2024 Alcohol intake Current drinker of alcohol (finding) [facility] Start: 01-31-2021 End: 05-29-2022 History SDOH Alcohol Frequency 2 [facility] Start: 04-20-2014 History SDOH Alcohol Comment occasional wine [facility] Start: 01-31-2021 End: 05-29-2022 History SDOH Social Connections Roman [employer] 3 [facility] Start: 01-31-2021 History SDOH Physical Activity MPS 6 [facility] Start: 01-31-2021 End: 02-01-2022 History SDOH Financial 5 [facility] Start: 09-04-2019 Education 17 [facility] Start: 11-05-2021 End: 04-03-2022 Exposure to SARS-CoV-2 (event) Not sure [facility] Start: 02-01-2022 End: 05-29-2022 History SDOH Financial 4 [facility] Start: 05-28-2022 End: 10-13-2022 History of Social function [facility] Do you belong to any clubs or organizations such as yarsani groups, unions, fraternal or athletic groups, or school groups? No [facility] Are you now , , , , never or living with a partner? [facility] How often to you hav e a drink containing alcohol? Monthly or less [facility] How many standard dr inks containing alcohol do you have on a typical day? 1 or 2 [facility] How often do you hav e 6 or more drinks on 1 occasion? Never [facility] How hard is it for y ou to pay for the very basics like food, housing, medical care, and heating Not very hard [facility] Start: 04-01-2014 Adult Depression Screening Assessment 0 [facility] Work Phone: Do you feel stress - tense, restless, nervous, or anxious, or unable to sleep at night because your mind is troubled all the time - these days [OSQ] Only a little [facility] (I/We) worried whejose er (my/our) food would run out before (I/we) got money to buy more. Never true [facility] Start: 01-29-2020 Gender identity Identifies as female gender (finding) [facility] Work Phone: Start: 01-29-2020 Sexual orientation Heterosexual (finding) [facility] Work Phone: Do you belong to any clubs or organizations such as yarsani groups, unions, fraternal or athletic groups, or school groups? Yes [facility] Start: 08-23-2024 [facility] Start: 07-25-2024 Sex Female (finding) [facility] Medical Equipment Procedure Code Equipment Code Equipment Origin al Text Equipment Identifier Dates Blood Sugar Diagnostic (Blood Glucose Test) strip Start: 06-22-2021 Blood Sugar Diagnostic (Blood Glucose Test) strip Start: 06-22-2021 Blood Sugar Diagnostic (Blood Glucose Test) strip Start: 06-22-2021 Blood Sugar Diagnostic (Blood Glucose Test) strip Start: 06-22-2021 Blood Sugar Diagnostic (Blood Glucose Test) strip Start: 06-22-2021 End: 09-09-2021 Blood Sugar Diagnostic (Blood Glucose Test) strip Start: 06-22-2021 End: 09-09-2021 Blood Sugar Diagnostic (Blood Glucose Test) strip Start: 06-22-2021 End: 09-09-2021 Blood Sugar Diagnostic (Blood Glucose Test) strip Start: 06-22-2021 End: 09-09-2021 Blood Sugar Diagnostic (Blood Glucose Test) strip Start: 06-22-2021 End: 09-09-2021 Blood Sugar Diagnostic (Blood Glucose Test) strip Start: 06-22-2021 End: 09-09-2021 Blood Sugar Diagnostic (Blood Glucose Test) strip Start: 06-22-2021 End: 09-09-2021 Blood Sugar Diagnostic (Blood Glucose Test) strip Start: 06-22-2021 End: 09-09-2021 Blood Sugar Diagnostic (Blood Glucose Test) strip Start: 06-22-2021 End: 09-09-2021 Blood Sugar Diagnostic (Blood Glucose Test) strip Start: 06-22-2021 End: 09-09-2021 Blood Sugar Diagnostic (Blood Glucose Test) strip Start: 06-22-2021 End: 09-09-2021 Blood Sugar Diagnostic (Blood Glucose Test) strip Start: 06-22-2021 End: 09-09-2021 Blood Sugar Diagnostic (Blood Glucose Test) strip Start: 06-22-2021 End: 09-09-2021 Blood Sugar Diagnostic (Blood Glucose Test) strip Start: 06-22-2021 End: 09-09-2021 Blood Sugar Diagnostic (Blood Glucose Test) strip Start: 06-22-2021 End: 09-09-2021 Blood Sugar Diagnostic (Blood Glucose Test) strip Start: 06-22-2021 End: 09-09-2021 Blood Sugar Diagnostic (Blood Glucose Test) strip Start: 06-22-2021 End: 09-09-2021 Goals Date Patient Goal Desired Activity /State Functional Status Date Assessment Result Facility 10-13-2014 Are you deaf, or do you have serious difficulty hearing No 10/13/2014 9:08 AM Kiki Reardon LPN No [facility] Work Phone: 10-13-2014 Are you blind, or do you have serious difficulty seeing, even when wearing glasses No 10/13/2014 9:08 AM Kiki Reardon LPN No [facility] 10-13-2014 Do you have serious difficulty walking or climbing stairs No 10/13/2014 9:08 AM Kiki Reardon LPN [facility] 10-13-2014 Do you have difficul ty dressing or bathing No 10/13/2014 9:08 AM EDT Kiki Taylor LPN No [facility] 10-13-2014 Because of a physica l, mental, or emotional condition, do you have difficulty doing errands alone such as visiting a physician's office or shopping No 10/13/2014 9:08 AM EDT Kiki Taylor LPN No [facility] NEGATED: Highlighted row Functional performance Functional status health issues are not documented Disease -Urgent [facility] Work Phone: Mental Status Date Assessment Result Facility 04-21-2024 Cognitive function Voice/Name [facility] Work Phone: 08-22-2021 Cognitive function Voice/Name [facility] Work Phone: 10-13-2014 Because of a physical, mental, or emotional condition, do you have serious difficulty concentrating, remembering, or making decisions No 10/13/2014 9:08 AM EDT Kiki Taylor LPN No [facility] NEGATED: Highlighted row Cognitive function [Interpretation] Cognitive status health issues are not documented Disease [facility] Work Phone: Clinical Notes 12-14-2021 to 02-23-2025 Note Date & Type Note Facility 02-23-2025 Progress note [facility] 02-16-2025 Note HNO ID: [id number] Author: ELEANOR CLARK APRN.GRAIN THRESHER Service: ? Author Type: Nurse Practitioner Type: Progress Notes Filed: 02/16/2025 11:28 Note Text: This is a 35 year old female who presents today with: Patient presents with: Acute Visit: Cough, head and chest congestion, sinus pressure, left ear pain x 3-4 weeks. HISTORY OF PRESENT ILLNESS: Karri Villavicencio is a 35 year old female. Patient presents with: Acute Visit: Cough, head and chest congestion, sinus pressure, left ear pain x 3-4 weeks. The patient is a 35?year?old female presenting for evaluation of persistent sore throat, sinus congestion, and cough. Karri is a 35-year-old female, currently , presenting with ear pain, sinus congestion, and cough. Ear Pain, Sinus Congestion, and Cough: - Symptoms began on 01/[address] Maurice. - Persistent sore throat, worsening over time. - Tried natural and OTC remedies without relief; currently taking Mucinex for about a week. - Reports headaches, primarily occipital, attributed to sleeping on the couch. - Productive cough with occasional emesis during coughing fits. - Denies lumps, bumps, or swelling in the neck. - Reports congestion-related dyspnea. - Denies chest pain, wheezing, or palpitations. - Denies blurred or double vision. UTI: - Currently on prophylactic antibiotics for UTI prevention. - Reports dysuria and urinary frequency with minimal output. - Experiences urinary incontinence during coughing episodes. - Scheduled to see OB on Sunday for UTI evaluation. PAST MEDICAL HISTORY: PAST MEDICAL HISTORY Diagnosis Date Acquired hypothyroidism 12/17/2014 Hoshimoto's Anxiety 04/20/2014 Well adult exam 04/20/2014 Last done: 01/02/2019 PAST SURGICAL HISTORY Procedure Laterality Date SECTION HX N/A 2016 and 2021 DANDC, DIAG AND/OR THERAPEUTIC N/A 04/21/2024 PAST SURGICAL HISTORY OF 2005 laser surgery on bilater feet to remove warts ALLERGIES Macrobid [Nitrofurantoin Monohyd/M-Cryst] MEDICATIONS Current Outpatient Medications Medication Sig ferrous sulfate 325 mg (65 mg iron) tablet Take 325 mg by mouth once daily. cephALEXin (KEFLEX) 500 mg capsule Take 500 mg by mouth once daily. vit/iron fum/folic ac ( 1 + 1 ORAL) Take 1 tablet by mouth once daily. sertraline (ZOLOFT) 25 mg tablet Take 1 tablet by mouth once daily. levothyroxine (LEVOXYL) 150 mcg tablet Take 1 tablet by mouth once daily. Jadon-Sat and two on Sunday. Take on empty stomach. For Thyroid. No current facility-administered medications for this visit. FAMILY HISTORY Adopted: Yes Problem Relation Age of Onset Seizures Mother epiletic Diabetes Father Hypertension Father No Known Problems Sister No Known Problems Sister No Known Problems Brother No Known Problems Brother No Known Problems Brother No Known Problems Brother Diabetes Paternal Grandmother Hypertension Paternal Grandmother Diabetes Paternal Grandfather Coronary Artery Disease Paternal Grandfather over 50 Hypertension Paternal Grandfather No Known Problems Daughter No Known Problems Son Thyroid Paternal Uncle SOCIAL HISTORY[1] REVIEW OF SYSTEMS Constitutional: (+) fatigue Head: (+) occipital headache Eyes: (-) blurred vision Ears/Nose/Mouth/Throat: (+) sore throat, (+) nasal congestion Cardiovascular: (+) chest tightness, (-) palpitations Respiratory: (+) cough, (+) sputum production, (+) shortness of breath, (-) wheezing Gastrointestinal: (+) vomiting, (-) nausea Genitourinary: (+) dysuria, (+) urinary frequency, (+) stress urinary incontinence EXAM: BP 118/60 (BP Site: Right Arm, BP Position: Sitting) Pulse 74 Temp 37 ?C (98.6 ?F) (Right Tympanic) LMP 05/24/2023 (Exact Date) SpO2 99% PHYSICAL EXAM: GENERAL: NAD, alert and oriented SKIN: unremarkable, no rash or skin lesions. HEAD: normocephalic EYES: conjunctiva clear EARS: external ears normal, canals clear, TM's slightly bulging caitlin. NOSE/SINUSES: Nares boggy and swollen- red. Septum midline. Maxillary tenderness caitlin. OROPHARYNX: lips, mucosa, and tongue normal, good dentition. No oral lesions noted. NECK: Supple, no lymphadenopathy, normal thyroid, no carotid bruits. LUNGS: Clear to auscultation bilaterally, no wheezes/rhonchi/rales. HEART: Regular rate and rhythm, no murmurs. No ectopy. EXTREMITIES: Normal, No deformities, No skin discoloration, No edema. NEURO: Awake, alert and oriented x3, normal gait, no involuntary motions LABS: ASSESSMENT/PLAN: 1. Acute non-recurrent maxillary sinusitis (J01.00) - Persistent symptoms since 01/27, worsening despite natural and OTC remedies. - Start amoxicillin TID for 10 days; instructed to complete full course. - Advised use of plain saline nasal spray (spray or squeeze bottle) at least 4 times daily, or neti pot once daily to flush allergens and enhance antibiotic efficacy. 2. Dysuria (R30 (more content not included)... [facility] 02-09-2025 Note HNO ID: [id number] Author: ALBERTO WEBSTER LPN Service: ? Author Type: Licensed Nurse Type: Progress Notes Filed: 02/09/2025 13:52 Note Text: Scan on 02/09/2025 12:37 PM by Provider, LEANNE Young: Hematology Scan on 02/09/2025 1:04 PM by Provider, LEANNE Young: Chemistry [facility] 02-09-2025 Progress note [facility] 01-27-2025 Note HNO ID: [id number] Author: CAIN PRETTY MD Service: ? Author Type: Physician Type: Progress Notes Filed: 01/27/2025 14:30 Note Text: Chief Complaint Patient presents with: Well Adult HPI Karri Villavicencio is a 34 year old female who presents here today for a Physical. Patient with Hx of Anxiety, Hypothyroidism as well as those reviewed and addressed below in ROS. Currently 24 weeks , following with Dr. Madrid. Had DANDC 04/2024. Wellness Form brought in today to be completed. Karri Villavicencio is a 34-year-old female, , currently . Karri is currently on sertraline for anxiety and reports doing well on the medication. She had a DANDC in April. She denies any new health issues in her blood relatives. Karri reports a sore throat that started today, but denies any drainage, lumps, or swelling in her neck. She also reports snoring that wakes her up at night. She denies any recent fevers, frequent headaches, sudden changes in hearing or vision, wheezing, or dyspnea. She has a cough in the mornings, but denies producing colored mucus or blood. She denies any chest pain, palpitations, or swelling in her legs, but notes swelling in her feet and ankles. She occasionally experiences heartburn, but denies any unexpected nausea, vomiting, or diarrhea. She is on a maintenance dosage of antibiotics for the rest of her to prevent UTIs and denies any discomfort with urination. She denies any unusual muscle or joint aches, skin lesions, rashes, or sores, easy bruising or bleeding, changes in tolerance to heat or cold, increased thirst, syncope, seizures, or tremors. Karri reports "really bad" lower back pain associated with her sciatic nerve, causing pain in her lower back and left buttock, and occasionally causing her leg to give out. She notes that this pain only occurs during . She finds relief by laying on her right side, stretching, and walking, although walking initially exacerbates the pain. Karri declines a flu shot today, stating that she gets "so sick" after them. She has been for 8 years and does not intend to separate. She reports that she was fasting before her blood work. She has been struggling with protein intake and has cut back on sugary foods during this . She reports cravings for pizza, which she eats once a week. Past medical history, appointments, medications, allergies reviewed. Previous Medical History PAST MEDICAL HISTORY Diagnosis Date Acquired hypothyroidism 12/17/2014 Hoshimoto's Anxiety 04/20/2014 Well adult exam 04/20/2014 Last done: 01/02/2019 Previous Surgical History PAST SURGICAL HISTORY Procedure Laterality Date SECTION HX N/A 2016 and 2021 DANDC, DIAG AND/OR THERAPEUTIC N/A 04/21/2024 PAST SURGICAL HISTORY OF 2004 laser surgery on bilater feet to remove warts Family History FAMILY HISTORY Adopted: Yes Problem Relation Age of Onset Seizures Mother epiletic Diabetes Father Hypertension Father No Known Problems Sister No Known Problems Sister No Known Problems Brother No Known Problems Brother No Known Problems Brother No Known Problems Brother Diabetes Paternal Grandmother Hypertension Paternal Grandmother Diabetes Paternal Grandfather Coronary Artery Disease Paternal Grandfather over 50 Hypertension Paternal Grandfather No Known Problems Daughter No Known Problems Son Thyroid Paternal Uncle Patient Allergies ALLERGIES Allergen Reactions Macrobid [Nitrofura* Other: See Comments Possible urticaria. (Started shortly after finishing antibiotic) Current Medications Current Outpatient Medications on File Prior to Visit Medication Sig vit/iron fum/folic ac ( 1 + 1 ORAL) Take 1 tablet by mouth once daily. sertraline (ZOLOFT) 25 mg tablet Take 1 tablet by mouth once daily. levothyroxine (LEVOXYL) 150 mcg tablet Take 1 tablet by mouth once daily. Jadon-Sat and two on Sunday. Take on empty stomach. For Thyroid. No current facility-administered medications on file prior to visit. Social History SOCIAL HISTORY[1] Review of Symptoms REVIEW OF SYSTEMS GENERAL: No weight loss, malaise or fevers HEENT: Negative for frequent or significant headaches, No changes in hearing or vision, no nose bleeds or other nasal problems. Hs a slight sore throat today. NECK: Negative for lumps, goiter, pain and significant neck swelling RESPIRATORY: Negative for cough with colored mucus, hemoptysis, wheezing, COPD, dyspnea or shortness of breath CARDIOVASCULAR: Negative for chest pain, leg swelling, hypertension, CHF or palpitations GI: No nausea, vomiting, or diarrhea and No frequent heartburn or reflux symptoms : recently treated for UTI and on daily dose for rest of . MUSCULOSKELETAL: some low back pain and left but and leg. SKIN: Negative for lesions, rash, and itc (more content not included)... [facility] 01-12-2025 Progress note [facility] 01-12-2025 Progress note Note Date/Time January 12, 2025 2:48pm [facility] [address], [address] [place] [address] OFFICE VISIT Date of Service: 01/12/25 MR#: [id number] Acct: [id number] Name: KARRI MARTIN p #: [phone] : 1990 Provider: Dr. Darren Madrid MD Age/Sex: 34/F Location: [facility] [place] Status: Signed Intake Vital Signs 12/01/24 10:40 01/06/25 16:00 01/12/25 14:29 Height 5 ft 4 in 5 ft 4 in 5 ft 4 in Weight: 166 lb 2 oz BMI 28.5 BP 107/71 Intake Visit Reasons: 21 wk ob Rn Chronic Required: No Is patient in pain?: No Allergies nitrofurantoin Allergy (Mild, Verified 01/12/25 14:30) Hives Medications ?Medication ?Instructions ?Recorded ?Confirmed ?Type sertraline 25 mg tablet 25 mg PO DAILY anxiety #30 t abs 10/18/22 01/12/25 Rx levothyroxine 150 mcg tablet 150 mcg PO .COMPLEX hypot hyorid 10/03/24 01/12/25 History multivit-min no.71-iron fum 28 cap PO 10/03/24 5 History mg-folate no.1 1 mg-dha 300 mg capsule (PNV-Merrifield) cephalexin 500 mg capsule 500 mg PO TID 7 days #21 cap s 01/07/25 01/12/25 Rx cephalexin 500 mg capsule 500 mg PO QDAY #30 caps 12/2901/12/25 Rx Last Menstrual Period: 08/12/24 Zika: Zika virus screening: Negative : No PFSH PFSH Medical History AMA (advanced maternal age) multigravida 35+ H/O gestational diabetes in prior , currently Supervision of high-risk History of oligohydramnios in prior , currently Previous gestational diabetes mellitus, antepartum Spotting in early Hx of recurrent urinary tract infection delivery delivered History of pre-term labor History of premature rupture of membranes (PPROM) History of prior with IUGR Thyroid disorder Anemia affecting IUGR (intrauterine growth restriction) in prior , Surgical History H/O dilation and curettage H/O section Campbell teeth extracted S/P Family History Father Diabetes Grandfather Diabetes Paternal & Maternal Mother Seizures Social History adopted: Yes (13yrs old) household members: spouse and children housing: house number of children: 3 current occupational status: employed 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[employer] current 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/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: No pets and animals: Yes ( taking care of litter box) pets and animals: cat(s) and dog(s) history of recent travel: No sexually active: Yes Smoking Status: Never smoker alcohol intake: current alcohol intake frequency: holidays/special occasions only details: Not while substance use type: does not use well-balanced diet: daily or most days caffeine: No eating out: rarely or never during the past year weight has: remained stable what type of physical activity do you participate in: walking and weight training frequency: 3-4 times per week duration: 15-30 minutes/day fatou/christianity: Quaker seatbelt use: always do you feel safe at home: Yes additional social history: : Stephen - Management History 7 Elective abortions Hx Para 3 Spontaneous abortions 3 Hx # Term Pregnancies Ectopic pregnancies Hx # Pregnancies Multiple births # of living children 3 Past Pregnancies Del. Date Name GA/Weeks Outcome Route Bth Weight Gen Labor Lgth Anesthesia Del Locatn Provider FOB 04/03/17 Antonina 40 live - full term 7lbs 12oz Fem sahil 3 days epidural [facility] Dr. Whitmore Stephen 01/10/19 Raffy 36 live - 5lbs 12oz Male 0 spinal [place] Betzya Stephen 11/19/20 5 spontaneous 08/22/21 Lieda 39 live - full term 7lbs 3oz Female spinal [facility] 07/16/23 5 spontaneous 04/21/24 11 spontaneous SM Delivery Date: 04/03/17 Last Updated by: Kim Olsen STAT c/s nuchal cord; distress Delivery Date: 01/10/19 Last Updated by: Kim Olsen PPROM, STAT C/S; IUGR; Oligo Delivery Date: 08/22/21 Last Updated by: Karina Chávez RLTCS Delivery Date: 04/21/24 Last Updated by: Alice Padilla RN D&C, measuring 9w1d HPI 21 wk ob Details: KARRI VILLAVICENCIO is a 34 year old who presents for routine OB visit. OB Visit AMRGUERITE Calculator Estimated Delivery Date Method Current WG Current Estimate 05/16/25 LMP (Certain) 22w 2d Other Estimates 05/15/25 Ultrasound #1 22w 3d Expected Delivery Route/Plan plans repeat c/s Specific Issue/Plans Covid status: [] Flu vaccine: [] Tdap vaccine: [] Rhogam: [] LARC form signed: [] Problem list reviewed and updated with the most current plan of care details and appropriate orders placed. Relevant counseling for the gestational age provided. Continue routine care and follow up unless otherwise noted in visit notes/problem list details Initial Weight: Not Recorded Date -?-?-?-?-?-?-?-?-?-?-?-?- EGA Weight BP Urine Prot -?-?-?-?-?-?-?-?-?-?-?-?- Glucose FHR FuHt Pres Dilation -?-?-?-?-?-?-?-?-?-?-?-?- Effaced St Visit Note 10/13/24 -?-?-?-?-?-?-?-?-?-?-?-?- 9w 2d 163 lb 2 oz 122/74 -?-?-?-?-?-?-?-?-?-?-?-?- 175 -?-?-?-?-?-?-?-?-?-?-?-?- KW- CRL cons wit h dates. Accepts NIPT-currently on ATB for UTI. will get culture in 4 weeks. would like to RTO in 2 weeks for FHT due to hx SAB. 10/27/24 -?-?-?-?-?-?-?-?-?-?-?-?- 11w 2d 161 lb 6 oz 116/62 Nega tive -?-?-?-?-?-?-?-?-?-?-?-?- Negative 168 -?-?-?-?-?-?-?-?-?-?-?-?- SM- no vb crmapi ng 11/18/24 -?-?-?-?-?-?-?-?-?-?-?-?- 14w 3d 159 lb 116/77 Negative -?-?-?-?-?-?-?-?-?-?-?-?- Negative 148 -?-?-?-?-?-?-?-?-?-?-?-?- JV- CRL measurin g 13 weeks 6 days. no complaints today. anaotmy scan ordered 12/01/24 -?-?-?-?-?-?-?-?-?-?-?-?- 16w 2d 161 lb 8 oz 115/72 Nega tive -?-?-?-?-?-?-?-?-?-?-?-?- Negative 145 -?-?-?-?-?-?-?-?-?-?-?-?- KW- no vb/crampi ng. +fm. anatomy US scheduled. declines AFP 12/18/24 -?-?-?-?-?-?-?-?-?-?-?-?- 18w 5d 162 lb 9 oz 121/70 -?-?-?-?-?-?-?-?-?-?-?-?- 145 -?-?-?-?-?-?-?-?-?-?-?-?- SM co right hand numbness and tingling, carpal tunnel like symptoms 01/06/25 -?-?-?-?-?-?-?-?-?-?-?-?- 21w 3d 165 lb 3 oz 122/73 Nega tive -?-?-?-?-?-?-?-?-?-?-?-?- Negative 140 -?-?-?-?-?-?-?-?-?-?-?-?- SM- co urinary f requency pressure, and incontinence. no vb 01/12/25 -?-?-?-?-?-?-?-?-?-?-?-?- 22w 2d 166 lb 2 oz 107/71 Nega tive -?-?-?-?-?-?-?-?-?-?-?-?- Negative 140 22 -?-?-?-?-?-?-?-?-?-?-?-?- SM- keflex order ed no vb lof goo dfm ACOG First Trimester First Trimester: Desire for , Alcohol, Tobacco Cessation, Illicit/Recreational Drug/Substance Use, Intimate Partner Violence, Barriers to care, Unstable Housing, Communication Barriers, Environmental/Work Hazards, Anticipated Course of Care, Toxoplasmosis Precations, Use of Any medications, Sexual activity, Exercise, Dental Care, Sauna/Hot tub use, Seat Belt use, Childbirth classes/Hospital facilities, Travel, Indications for Ultrasound and Screening for Aneuploidy; Discussed Results POC Urinalysis 2 Dip (Clinic) Office Urine Glucose Negative Last Edit by Bulmaro Ocampo on 01/12/25 14:47 Office Urine Protein Negative Last Edit by Bulmaro Ocampo on 01/12/25 14:47 Coding Level of Care Code OB Routine Diagnoses Family history of congenital anomaly of cardiovascular system Z82.79 Hx of section Z98.891 Advanced maternal age (AMA) in Supervision of high-risk O09.90 22 weeks gestation of Z3A.22 Weeks of gestation: 22 weeks Lupus anticoagulant positive R76.0 History of miscarriage Z87.59 Hypothyroidism E03.9 Anxiety F41.9 Recurrent urinary tract infection affecting in second trimester O23.42 Assessment and Plan Assessment and Plan (1) Family history of congenital anomaly of cardiovascular system: Status: Acute Comment: Stephen's brother born with transposition of arteries, echo 22-26wk ordered (2) Hx of section: Status: Acute Comment: x3, plans c section (3) Advanced maternal age (AMA) in : Status: Acute (4) Supervision of high-risk : Status: Acute Comment: , MARGUERITE 05/16/25, girl PC Raffy Sarkar Lieda, Stephen (5) : Status: Acute Qualifiers: Weeks of gestation: 22 weeks Qualified Code(s): Z3A.22 - 22 weeks gestation of Comment: NIPT low risk, female (6) Lupus anticoagulant positive: Status: Acute Comment: repeat antibody testing ordered, normal range in July (7) History of miscarriage: Status: Acute Comment: x3 (8) Hypothyroidism: Status: Acute Comment: needs TSH qtrimester- currently increased Levothyroxine from 137 to 150mcg. rpt in one month from 04/14 visit. order in. pt aware. (9) Anxiety: Status: Acute Comment: Zoloft adequate/stable (10) Recurrent urinary tract infection affecting in second trimester: Status: Acute Comment: keflex prophylaxis Orders: Orders POC Urinalysis 2 Dip (Clinic) Today O09.90 - Supervision of high risk , unspecified, unspecified trimester CBC W/Diff, Automated Today O09.90 - Supervision of high risk , unspecified, unspecified trimester Glucose Challenge Gest 1H 50g Today O09.90 - Supervision of high risk , unspecified, unspecified trimester, Z13.1 - Encounter for screening for diabetes mellitus HIV Today O09.90 - Supervision of high risk , unspecified, unspecified trimester Syphilis Antibodies Today O09.90 - Supervision of high risk , unspecified, unspecified trimester Medications: New cephalexin take daily after completing course of acute therapy 500 mg PO QDAY 30 caps 6RF 01/12/25 [id number] <Electronically signed by Smiley sepulveda MD> Date _ Smiley Abraham Signature: Date (if applicable) CC: ~ [facility] Work Phone: [phone]) 679-644609-03-2025 NoteHNO ID: [id number] Author: GEETA MONREAL MA Service: ? Author Type: Reservation Sales Agent Type: Progress Notes Filed: 01/08/2025 11:44 Note Text: Scan on 01/07/2025 11:08 AM by ProviderHector PAMatthewC: Urine Cult Scan on 01/08/2025 7:35 AM by ProviderHector PA-C: [facility]rine Cult, [facility] of Present illness Narrative* Geeta Monreal MA - 01/07/2025 11:41 AM EDT Scan on 01/07/2025 11:08 AM by ProviderHector PA-C: Urine Cult [facility] Progress [facility] [address], [address] [place] [id number] OFFICE VISIT Date of Service: 01/06/25 MR#: [id number] Acct: [id number] Name: KARRI MARTIN Sylvester Re p #: [id number] : 1990 Provider: Dr. Darren Madrid MD Age/Sex: 34/F Location: [email or web address] Status: Signed Intake Vital Signs 12/18/24 14:16 01/06/25 14:00 01/06/25 16:00 Height 5 ft 4 in 5 ft 4 in 5 ft 4 in Weight: 165 lb 3 oz BMI 28.3 BP 122/73 H Intake Visit Reasons: OB, H/A, incontinence, UA & Culture Rn Chronic Required: No Is patient in pain?: Yes (pelvic pain) Allergies nitrofurantoin Allergy (Mild, Verified 01/06/25 16:01) Hives Medications ?Medication ?Instructions ?Recorded ?Confirmed ?Type sertraline 25 mg tablet 25 mg PO DAILY anxiety #30 t abs 10/18/22 01/06/25 Rx levothyroxine 150 mcg tablet 150 mcg PO .COMPLEX hypot hyorid 10/03/24 01/06/25 History multivit-min no.71-iron fum 28 cap PO 10/03/24 5 History mg-folate no.1 1 mg-dha 300 mg capsule (PNV-Merrifield) cephalexin 500 mg capsule 500 mg PO TID 7 days #21 cap s 01/06/25 01/06/25 Rx Last Menstrual Period: 08/12/24 Zika: Zika virus screening: Negative : No PFSH PFSH Medical History AMA (advanced maternal age) multigravida 35+ H/O gestational diabetes in prior , currently Supervision of high-risk History of oligohydramnios in prior , currently Previous gestational diabetes mellitus, antepartum Spotting in early Hx of recurrent urinary tract infection delivery delivered History of pre-term labor History of premature rupture of membranes (PPROM) History of prior with IUGR Thyroid disorder Anemia affecting IUGR (intrauterine growth restriction) in prior , Surgical History H/O dilation and curettage H/O section Campbell teeth extracted S/P Family History Father Diabetes Grandfather Diabetes Paternal & Maternal Mother Seizures Social History adopted: Yes (13yrs old) household members: spouse and children housing: house number of children: 3 current occupational status: employed 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[employer] current 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/hazards: No pets and animals: Yes ( taking care of litter box) pets and animals: cat(s) and dog(s) history of recent travel: No sexually active: Yes Smoking Status: Never smoker alcohol intake: current alcohol intake frequency: holidays/special occasions only details: Not while substance use type: does not use well-balanced diet: daily or most days caffeine: No eating out: rarely or never during the past year weight has: remained stable what type of physical activity do you participate in: walking and weight training frequency: 3-4 times per week duration: 15-30 minutes/day fatou/christianity: Quaker seatbelt use: always do you feel safe at home: Yes additional social history: : Stephen - Management History 7 Elective abortions Hx Para 3 Spontaneous abortions 3 Hx # Term Pregnancies Ectopic pregnancies Hx # Pregnancies Multiple births # of living children 3 Past Pregnancies Del. Date Name GA/Weeks Outcome Route Bth Weight Gen Labor Lgth Anesthesia Del Locatn Provider FOB 04/03/17 Antonina 40 live - full term 7lbs 12oz Fem sahil 3 days epidural [facility] Dr[facility] 01/10/19 Raffy 34 live - 5lbs 12oz Male 0 spinal [place] Betzya [facility] 11/19/20 5 spontaneous 08/22/21 Lieda 39 live - full term 7lbs 3oz Female spinal H Sriramcam [facility] 07/16/23 5 spontaneous 04/21/24 11 spontaneous SM Delivery Date: 04/03/17 Last Updated by: Kim Olsen STAT c/s nuchal cord; distress Delivery Date: 01/10/19 Last Updated by: Kim Olsen PPROM, STAT C/S; IUGR; Oligo Delivery Date: 08/22/21 Last Updated by: Karina Chávez [facility] Delivery Date: 04/21/24 Last Updated by: Alice Padilla RN D&C, measuring 9w1d HPI OB, H/A, incontinence, UA & Culture Details: KARRI VILLAVICENCIO is a 34 year old who presents for routine OB visit. OB Visit MARGUERITE Calculator Estimated Delivery Date Method Current WG Current Estimate 05/16/25 LMP (Certain) 21w 3d Other Estimates 05/15/25 Ultrasound #1 21w 4d Expected Delivery Route/Plan plans repeat c/s Specific Issue/Plans Covid status: [] Flu vaccine: [] Tdap vaccine: [] Rhogam: [] LARC form signed: [] Problem list reviewed and updated with the most current plan of care details and appropriate ordersplaced. Relevant counseling for the gestational age provided. Continue routine care and follow up unless otherwise noted in visit notes/problem list details Initial Weight: Not Recorded Date -?-?-?-?-?-?-?-?-?-?-?-?- EGA Weight BP Urine Prot -?-?-?-?-?-?-?-?-?-?-?-?- Glucose FHR FuHt Pres Dilation -?-?-?-?-?-?-?-?-?-?-?-?- Effaced St Visit Note 10/13/24 -?-?-?-?-?-?-?-?-?-?-?-?- 9w 2d 163 lb 2 oz 122/74 -?-?-?-?-?-?-?-?-?-?-?-?- 175 -?-?-?-?-?-?-?-?-?-?-?-?- KW- CRL cons wit h dates. Accepts NIPT-currently on ATB for UTI. will get culture in 4 weeks. would like to RTO in 2 weeks for FHT due to hx SAB. 10/27/24 -?-?-?-?-?-?-?-?-?-?-?-?- 11w 2d 161 lb 6 oz 116/62 Nega tive -?-?-?-?-?-?-?-?-?-?-?-?- Negative 168 -?-?-?-?-?-?-?-?-?-?-?-?- SM- no vb crmapi ng 11/18/24 -?-?-?-?-?-?-?-?-?-?-?-?- 14w 3d 159 lb 116/77 Negative -?-?-?-?-?-?-?-?-?-?-?-?- Negative 148 -?-?-?-?-?-?-?-?-?-?-?-?- JV- CRL measurin g 13 weeks 6 days. no complaints today. anaotmy scan ordered 12/01/24 -?-?-?-?-?-?-?-?-?-?-?-?- 16w 2d 161 lb 8 oz 115/72 Nega tive -?-?-?-?-?-?-?-?-?-?-?-?- Negative 145 -?-?-?-?-?-?-?-?-?-?-?-?- KW- no vb/crampi ng. +fm. anatomy US scheduled. declines AFP 12/18/24 -?-?-?-?-?-?-?-?-?-?-?-?- 18w 5d 162 lb 9 oz 121/70 -?-?-?-?-?-?-?-?-?-?-?-?- 145 -?-?-?-?-?-?-?-?-?-?-?-?- SM co right hand numbness and tingling, carpal tunnel like symptoms 01/06/25 -?-?-?-?-?--?-?-?-?-?-?-?- 21w 3d 165 lb 3 oz 122/73 Nega tive -?-?-?-?-?-?-?-?-?-?-?-?- Negative 140 -?-?-?-?-?-?-?-?-?-?-?-?- SM- co urinary f requency pressure, and incontinence. no vb ACOG First Trimester First Trimester: Desire for , Alcohol, Tobacco Cessation, Illicit/Recreational Drug/Substance Use, Intimate Partner Violence, Barriers to care, Unstable Housing, Communication Barriers, Environmental/Work Hazards, Anticipated Course of Care, Toxoplasmosis Precations, Use of Any med ications, Sexual activity, Exercise, Dental Care, Sauna/Hot tub use, Seat Belt use, Childbirth classes/Hospital facilities, Travel, Indications for Ultrasound and Screening for Aneuploidy; Discussed Results POC Urinalysis Dip (Clinic) Office Urine Color YELLOW Last Edit by Bulmaro Ocampo on 01/06/25 16:13 Office Urine Clarity Clear Last Edit by Bulmaro Ocampo on 01/06/25 16:13 Office Urine Glucose Negative Last Edit by Bulmaro Ocampo on 01/06/25 16:13 Office Urine Ketones Negative Last Edit by Bulmaro Ocampo on 01/06/25 16:13 Off Ur Spec [place] 1.010 Last Edit by Bulmaro Ocampo on 01/06/25 16:13 Office Urine pH 6.5 Last Edit by Bulmaro Ocampo on 01/06/25 16:13 Office Urine Bilirubin Negative Last Edit by Bulmaro Ocampo on 01/06/25 16: 13 Office Urine Urobilinogen 0.2 mg/dL Last Edit by Bulmaro Ocampo on 01/06/25 16:13 Office Urine Blood Negative Last Edit by Bulmaro Ocampo on 01/06/25 16:13 Office Urine Blood Hemolyzed NA Last Edit by Bulmaro Ocampo on 01/06/25 16: 13 Office Urine Protein Negative Last Edit by Bulmaro Ocampo on 01/06/25 16:13 Office Urine Nitrate Negative Last Edit by Bulmaro Ocampo on 01/06/25 16:13 Off Ur Leukocytes Positive Last Edit by Bulmaro Ocampo on 01/06/25 16:13 moderate leukocytes Coding Level of Care Code OB Routine Diagnoses Family history of congenital anomaly of cardiovascular system Z82.79 UTI (urinary tract infection) during O23.40 Hx of section Z98.891 Advanced maternal age (AMA) in Supervision of high-risk O09.90 21 weeks gestation of Z3A.21 Weeks of gestation: 21 weeks Lupus anticoagulant positive R76.0 History of miscarriage Z87.59 Hypothyroidism E03.9 Anxiety F41.9 Assessment and Plan Assessment and Plan (1) Family history of congenital anomaly of cardiovascular system: Status: Acute Comment: Stephen's brother born with transposition of arteries, echo 22-26wk ordered (2) UTI (urinary tract infection) during : Status: Acute Comment: at NOB. needs repeat culture in November (3) Hx of section: Status: Acute Comment: x3, plans c section (4) Advanced maternal age (AMA) in : Status: Acute (5) Supervision of high-risk : Status: Acute Comment: , MARGUERITE 05/16/25, girl PC Raffy Sarkar Lieda, Stephen (6) : Status: Acute Qualifiers: Weeks of gestation: 21 weeks Qualified Code(s): Z3A.21 - 21 weeks gestation of Comment: NIPT low risk, female (7) Lupus anticoagulant positive: Status: Acute Comment: repeat antibody testing ordered, normal range in July (8) History of miscarriage: Status: Acute Comment: x3 (9) Hypothyroidism: Status: Acute Comment: needs TSH qtrimester- currently increased Levothyroxine from 137 to 150mcg. rpt in one month from 04/14 visit. order in. pt aware. (10) Anxiety: Status: Acute Comment: Zoloft adequate/stable Orders: Orders POC Urinalysis Dip (Clinic) Today R32 - Unspecified urinary incontinence, R35.0 - Frequency of micturition Culture, Urine Today R32 - Unspecified urinary incontinence, R35.0 - Frequency of micturition Medications: New cephalexin space evenly during waking hours 500 mg PO TID 7 days 21 caps 0RF 01/06/25 1641 derick DORSEY> Date _ Smiley Madrid MD Cosign Signature: Date (if applicable) CC: ~ [facility]09-02-2025 Progress note Author Smiley Madrid [facility] Services Note Date/Time January 06, 2025 4:41pm [facility] [address] [place] [address], [address] [place] [address] OFFICE VISIT Date of Service: 01/06/25 MR#: [id number] Acct: [id number] Name: KARRI MARTIN p #: [phone] : 1990 Provider: Dr. Darren Madrid MD Age/Sex: 34/F Location: [facility] [place] Status: Signed Intake Vital Signs 12/18/24 14:16 01/06/25 14:00 01/06/25 16:00 Height 5 ft 4 in 5 ft 4 in 5 ft 4 in Weight: 165 lb 3 oz BMI 28.3 BP 122/73 H Intake Visit Reasons: OB, H/A, incontinence, UA & Culture Rn Chronic Required: No Is patient in pain?: Yes (pelvic pain) Allergies nitrofurantoin Allergy (Mild, Verified 01/06/25 16:01) Hives Medications ?Medication ?Instructions ?Recorded ?Confirmed ?Type sertraline 25 mg tablet 25 mg PO DAILY anxiety #30 t abs 10/18/22 01/06/25 Rx levothyroxine 150 mcg tablet 150 mcg PO .COMPLEX hypot hyorid 10/03/24 01/06/25 History multivit-min no.71-iron fum 28 cap PO 10/03/24 5 History mg-folate no.1 1 mg-dha 300 mg capsule (PNV-Merrifield) cephalexin 500 mg capsule 500 mg PO TID 7 days #21 cap s 01/06/25 01/06/25 Rx Last Menstrual Period: 08/12/24 Zika: Zika virus screening: Negative : No PFSH PFSH Medical History AMA (advanced maternal age) multigravida 35+ H/O gestational diabetes in prior , currently Supervision of high-risk History of oligohydramnios in prior , currently Previous gestational diabetes mellitus, antepartum Spotting in early Hx of recurrent urinary tract infection delivery delivered History of pre-term labor History of premature rupture of membranes (PPROM) History of prior with IUGR Thyroid disorder Anemia affecting IUGR (intrauterine growth restriction) in prior , Surgical History H/O dilation and curettage H/O section Campbell teeth extracted S/P Family History Father Diabetes Grandfather Diabetes Paternal & Maternal Mother Seizures Social History adopted: Yes (13yrs old) household members: spouse and children housing: house number of children: 3 current occupational status: employed 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[employer] current 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/hazards: No pets and animals: Yes ( taking care of litter box) pets and animals: cat(s) and dog(s) history of recent travel: No sexually active: Yes Smoking Status: Never smoker alcohol intake: current alcohol intake frequency: holidays/special occasions only details: Not while substance use type: does not use well-balanced diet: daily or most days caffeine: No eating out: rarely or never during the past year weight has: remained stable what type of physical activity do you participate in: walking and weight training frequency: 3-4 times per week duration: 15-30 minutes/day fatou/christianity: Quaker seatbelt use: always do you feel safe at home: Yes additional social history: : Stephen - Management History 7 Elective abortions Hx Para 3 Spontaneous abortions 3 Hx # Term Pregnancies Ectopic pregnancies Hx # Pregnancies Multiple births # of living children 3 Past Pregnancies Del. Date Name GA/Weeks Outcome Route Bth Weight Infant Gen Labor Lgth Anesthesia Del Locatn Provider FOB 04/03/17 Antonina 40 live - full term 7lbs 12oz Fem sahil 3 days epidural [facility] Dr[facility] 01/10/19 Raffy 34 live - 5lbs 12oz Male 0 spinal [place] Gustavo [facility] 11/19/20 5 spontaneous 08/22/21 Lieda 39 live - full term 7lbs 3oz Female spinal [facility] Sriram[facility] 07/16/23 5 spontaneous 04/21/24 11 spontaneous SM Delivery Date: 04/03/17 Last Updated by: Kim Olsen STAT c/s nuchal cord; distress Delivery Date: 01/10/19 Last Updated by: Kim Olsen PPROM, STAT C/S; IUGR; Oligo Delivery Date: 08/22/21 Last Updated by: Karina Chávez RLS Delivery Date: 04/21/24 Last Updated by: Alice Padilla RN D&C, measuring 9w1d HPI OB, H/A, incontinence, UA & Culture Details: KARRI VILLAVICENCIO is a 34 year old who presents for routine OB visit. OB Visit MARGUERITE Calculator Estimated Delivery Date Method Current WG Current Estimate 05/16/25 LMP (Certain) 21w 3d Other Estimates 05/15/25 Ultrasound #1 21w 4d Expected Delivery Route/Plan plans repeat c/s Specific Issue/Plans Covid status: [] Flu vaccine: [] Tdap vaccine: [] Rhogam: [] LARC form signed: [] Problem list reviewed and updated with the most current plan of care details and appropriate orders placed. Relevant counseling for the gestational age provided. Continue routine care and follow up unless otherwise noted in visit notes/problem list details Initial Weight: Not Recorded Date -?-?-?-?-?-?-?-?-?-?-?-?- EGA Weight BP Urine Prot -?-?-?-?-?-?-?-?-?-?-?-?- Glucose FHR FuHt Pres Dilation -?-?-?-?-?-?-?-?-?-?-?-?- Effaced St Visit Note 10/13/24 -?-?-?-?-?-?-?-?-?-?-?-?- 9w 2d 163 lb 2 oz 122/74 -?-?-?-?-?-?-?-?-?-?-?-?- 175 -?-?-?-?-?-?-?-?-?-?-?-?- KW- CRL cons wit h dates. Accepts NIPT-currently on ATB for UTI. will get culture in 4 weeks. would like to RTO in 2 weeks for FHT due to hx SAB. 10/27/24 -?-?-?-?-?-?-?-?-?-?-?-?- 11w 2d 161 lb 6 oz 116/62 Nega tive -?-?-?-?-?-?-?-?-?-?-?-?- Negative 168 -?-?-?-?-?-?-?-?-?-?-?-?- SM- no vb crmapi ng 11/18/24 -?-?-?-?-?-?-?-?-?-?-?-?- 14w 3d 159 lb 116/77 Negative -?-?-?-?-?-?-?-?-?-?-?-?- Negative 148 -?-?-?-?-?-?-?-?-?-?-?-?- JV- CRL measurin g 13 weeks 6 days. no complaints today. anaotmy scan ordered 12/01/24 -?-?-?-?-?-?-?-?-?-?-?-?- 16w 2d 161 lb 8 oz 115/72 Nega tive -?-?-?-?-?-?-?-?-?-?-?-?- Negative 145 -?-?-?-?-?-?-?-?-?-?-?-?- KW- no vb/sue ng. +fm. anatomy US scheduled. declines AFP 12/18/24 -?-?-?-?-?-?-?-?-?-?-?-?- 18w 5d 162 lb 9 oz 121/70 -?-?-?-?-?-?-?-?-?-?-?-?- 145 -?-?-?-?-?-?-?-?-?-?-?-?- SM co right hand numbness and tingling, carpal tunnel like symptoms 01/06/25 -?-?-?-?-?--?-?-?-?-?-?-?- 21w 3d 165 lb 3 oz 122/73 Nega tive -?-?-?-?-?-?-?-?-?-?-?-?- Negative 140 -?-?-?-?-?-?-?-?-?-?-?-?- SM- co urinary f requency pressure, and incontinence. no vb ACOG First Trimester First Trimester: Desire for , Alcohol, Tobacco Cessation, Illicit/Recreational Drug/Substance Use, Intimate Partner Violence, Barriers to care, Unstable Housing, Communication Barriers, Environmental/Work Hazards, Anticipated Course of Care, Toxoplasmosis Precations, Use of Any medications, Sexual activity, Exercise, Dental Care, Sauna/Hot tub use, Seat Belt use, Childbirth classes/Hospital facilities, Travel, Indications for Ultrasound and Screening for Aneuploidy; Discussed Results POC Urinalysis Dip (Clinic) Office Urine Color YELLOW Last Edit by Bulmaro Ocampo on 01/06/25 16:13 Office Urine Clarity Clear Last Edit by Bulmaro Ocampo on 01/06/25 16:13 Office Urine Glucose Negative Last Edit by Bulmaro Ocampo on 01/06/25 16:13 Office Urine Ketones Negative Last Edit by Bulmaro Ocampo on 01/06/25 16:13 Off Ur Spec Phoenix 1.010 Last Edit by Bulmaro Ocampo on 01/06/25 16:13 Office Urine pH 6.5 Last Edit by Bulmaro Ocampo on 01/06/25 16:13 Office Urine Bilirubin Negative Last Edit by Bulmaro Ocampo on 01/06/25 16: 13 Office Urine Urobilinogen 0.2 mg/dL Last Edit by Bulmaro Ocampo on 01/06/25 16:13 Office Urine Blood Negative Last Edit by Bulmaro Ocampo on 01/06/25 16:13 Office Urine Blood Hemolyzed NA Last Edit by Bulmaro Ocampo on 01/06/25 16: 13 Office Urine Protein Negative Last Edit by Bulmaro Ocampo on 01/06/25 16:13 Office Urine Nitrate Negative Last Edit by Bulmaro Ocampo on 01/06/25 16:13 Off Ur Leukocytes Positive Last Edit by Bulmaro Ocampo on 01/06/25 16:13 moderate leukocytes Coding Level of Care Code OB Routine Diagnoses Family history of congenital anomaly of cardiovascular system Z82.79 UTI (urinary tract infection) during O23.40 Hx of section Z98.891 Advanced maternal age (AMA) in Supervision of high-risk O09.90 21 weeks gestation of Z3A.21 Weeks of gestation: 21 weeks Lupus anticoagulant positive R76.0 History of miscarriage Z87.59 Hypothyroidism E03.9 Anxiety F41.9 Assessment and Plan Assessment and Plan (1) Family history of congenital anomaly of cardiovascular system: Status: Acute Comment: Stephen's brother born with transposition of arteries, echo 22-26wk ordered (2) UTI (urinary tract infection) during : Status: Acute Comment: at NOB. needs repeat culture in November (3) Hx of section: Status: Acute Comment: x3, plans c section (4) Advanced maternal age (AMA) in : Status: Acute (5) Supervision of high-risk : Status: Acute Comment: , MARGUERITE 05/16/25, girl PC Raffy Sarkar Lieda, Stephen (6) : Status: Acute Qualifiers: Weeks of gestation: 21 weeks Qualified Code(s): Z3A.21 - 21 weeks gestation of Comment: NIPT low risk, female (7) Lupus anticoagulant positive: Status: Acute Comment: repeat antibody testing ordered, normal range in July (8) History of miscarriage: Status: Acute Comment: x3 (9) Hypothyroidism: Status: Acute Comment: needs TSH qtrimester- currently increased Levothyroxine from 137 to 150mcg. rpt in one month from 04/14 visit. order in. pt aware. (10) Anxiety: Status: Acute Comment: Zoloft adequate/stable Orders: Orders POC Urinalysis Dip (Clinic) Today R32 - Unspecified urinary incontinence, R35.0 - Frequency of micturition Culture, Urine Today R32 - Unspecified urinary incontinence, R35.0 - Frequency of micturition Medications: New cephalexin space evenly during waking hours 500 mg PO TID 7 days 21 caps 0RF 01/06/25 1641 <Electronically signed by Smiley sepulveda MD> Date _ Smiley Madrid MD [facility] Signature: Date (if applicable) CC: ~ [facility] Work Phone: [phone] 527-239808-14-2025 Progress [facility] [address] [place] [address], [address] [place], [place] [id number] OFFICE VISIT Date of Service: 12/18/24 MR#: [id number] Acct: [id number] Name: KARRI MARTIN p #: [phone] : 1990 Provider: Dr. Darren Madrid MD Age/Sex: 34/F Location: [facility] [place] Status: Signed Intake Vital Signs 11/18/24 10:04 12/01/24 10:40 12/18/24 14:13 12/18/24 14:16 Height 5 ft 4 in 5 ft 4 in 5 ft 4 in 5 ft 4 in Weight: 162 lb 9 oz BMI 27.8 BP 121/70 H Intake Visit Reasons: 17 WK OB Rn Chronic Required: No Is patient in pain?: Yes (wrist pain/numbness) Allergies nitrofurantoin Allergy (Mild, Verified 12/18/24 14:12) Hives Medications ?Medication ?Instructions ?Recorded ?Confirmed ?Type sertraline 25 mg tablet 25 mg PO DAILY anxiety #30 t abs 10/18/22 12/18/24 Rx levothyroxine 150 mcg tablet 150 mcg PO .COMPLEX hypot hyorid 10/03/24 12/18/24 History multivit-min no.71-iron fum 28 cap PO 10/03/24 5 History mg-folate no.1 1 mg-dha 300 mg capsule (PNV-Merrifield) Last Menstrual Period: 08/12/24 Zika: Zika virus screening: Negative : No PFSH PFSH Medical History AMA (advanced maternal age) multigravida 35+ H/O gestational diabetes in prior , currently Supervision of high-risk History of oligohydramnios in prior , currently Previous gestational diabetes mellitus, antepartum Spotting in early Hx of recurrent urinary tract infection delivery delivered History of pre-term labor History of premature rupture of membranes (PPROM) History of prior with IUGR Thyroid disorder Anemia affecting IUGR (intrauterine growth restriction) in prior , Surgical History H/O dilation and curettage H/O section Campbell teeth extracted S/P Family History Father Diabetes Grandfather Diabetes Paternal & Maternal Mother Seizures Social History adopted: Yes (13yrs old) household members: spouse and children housing: house number of children: 3 current occupational status: employed 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[employer] current 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/hazards: No pets and animals: Yes ( taking care of litter box) pets and animals: cat(s) and dog(s) history of recent travel: No sexually active: Yes Smoking Status: Never smoker alcohol intake: current alcohol intake frequency: holidays/special occasions only details: Not while substance use type: does not use well-balanced diet: daily or most days caffeine: No eating out: rarely or never during the past year weight has: remained stable what type of physical activity do you participate in: walking and weight training frequency: 3-4 times per week duration: 15-30 minutes/day fatou/christianity: Quaker seatbelt use: always do you feel safe at home: Yes additional social history: : Stephen - Management History 7 Elective abortions Hx Para 3 Spontaneous abortions 3 Hx # Term Pregnancies Ectopic pregnancies Hx # Pregnancies Multiple births # of living children 3 Past Pregnancies Del. Date Name GA/Weeks Outcome Route Bth Weight Infant Gen Labor Lgth Anesthesia Del Locatn Provider FOB 04/03/17 Antonina 40 live - full term 7lbs 12oz Fem sahil 3 days epidural [facility] 01/10/19 Raffy 36 live - 5lbs 12oz Male 0 spinal [place] Gustavo [facility] 11/19/20 5 spontaneous 08/22/21 Lieda 39 live - full term 7lbs 3oz Female spinal [facility] 07/16/23 5 spontaneous 04/21/24 11 spontaneous SM Delivery Date: 04/03/17 Last Updated by: Kim Olsen STAT c/s nuchal cord; distress Delivery Date: 01/10/19 Last Updated by: Kim Olsen PPROM, STAT C/S; IUGR; Oligo Delivery Date: 08/22/21 Last Updated by: Karina Chávez RLS Delivery Date: 04/21/24 Last Updated by: Alice Padilla RN D&C, measuring 9w1d HPI 17 WK OB Details: KARRI VILLAVICENCIO is a 34 year old who presents for routine OB visit. OB Visit MARGUERITE Calculator Estimated Delivery Date Method Current WG Current Estimate 05/16/25 LMP (Certain) 18w 5d Other Estimates 05/15/25 Ultrasound #1 18w 6d Expected Delivery Route/Plan plans repeat c/s Specific Issue/Plans Covid status: [] Flu vaccine: [] Tdap vaccine: [] Rhogam: [] LARC form signed: [] Problem list reviewed and updated with the most current plan of care details and appropriate ordersplaced. Relevant counseling for the gestational age provided. Continue routine care and follow up unless otherwise noted in visit notes/problem list details Initial Weight: Not Recorded Date -?-?-?-?-?-?-?-?-?-?-?-?- EGA Weight BP Urine Prot -?-?-?-?-?-?-?-?-?-?-?-?- Glucose FHR FuHt Pres Dilation -?-?-?-?-?-?-?-?-?-?-?-?- Effaced St Visit Note 10/13/24 -?-?-?-?-?-?-?-?-?-?-?-?- 9w 2d 163 lb 2 oz 122/74 -?-?-?-?-?-?-?-?-?-?-?-?- 175 -?-?-?-?-?-?-?-?-?-?-?-?- KW- CRL cons wit h dates. Accepts NIPT-currently on ATB for UTI. will get culture in 4 weeks. would like to RTO in 2 weeks for FHT due to hx SAB. 10/27/24 -?-?-?-?-?-?-?-?-?-?-?-?- 11w 2d 161 lb 6 oz 116/62 Nega tive -?-?-?-?-?-?-?-?-?-?-?-?- Negative 168 -?-?-?-?-?-?-?-?-?-?-?-?- SM- no vb crmapi ng 11/18/24 -?-?-?-?-?-?-?-?-?-?-?-?- 14w 3d 159 lb 116/77 Negative -?-?-?-?-?-?-?-?-?-?-?-?- Negative 148 -?-?-?-?-?-?-?-?-?-?-?-?- JV- CRL measurin g 13 weeks 6 days. no complaints today. anaotmy scan ordered 12/01/24 -?-?-?-?-?-?-?-?-?-?-?-?- 16w 2d 161 lb 8 oz 115/72 Nega tive -?-?-?-?-?-?-?-?-?-?-?-?- Negative 145 -?-?-?-?-?-?-?-?-?-?-?-?- KW- no vb/crampi ng. +fm. anatomy US scheduled. declines AFP 12/18/24 -?-?-?-?-?-?-?-?-?-?-?-?- 18w 5d 162 lb 9 oz 121/70 -?-?-?-?-?-?-?-?-?-?-?-?- 145 -?-?-?-?-?-?-?-?-?-?-?-?- SM co right hand numbness and tingling, carpal tunnel like symptoms ACOG First Trimester First Trimester: Desire for , Alcohol, Tobacco Cessation, Illicit/Recreational Drug/Substance Use, Intimate Partner Violence, Barriers to care, Unstable Housing, Communication Barriers, Environmental/Work Hazards, Anticipated Course of Care, Toxoplasmosis Precations, Use of Any med ications, Sexual activity, Exercise, Dental Care, Sauna/Hot tub use, Seat Belt use, Childbirth classes/Hospital facilities, Travel, Indications for Ultrasound and Screening for Aneuploidy; Discussed Coding Level of Care Code OB Routine Diagnoses UTI (urinary tract infection) during O23.40 Hx of section Z98.891 Advanced maternal age (AMA) in Supervision of high-risk O09.90 18 weeks gestation of Z3A.18 Weeks of gestation: 18 weeks Lupus anticoagulant positive R76.0 History of miscarriage Z87.59 Hypothyroidism E03.9 Anxiety F41.9 Assessment and Plan Assessment and Plan (1) UTI (urinary tract infection) during : Status: Acute Comment: at NOB. needs repeat culture in November (2) Hx of section: Status: Acute Comment: x3, plans c section (3) Advanced maternal age (AMA) in : Status: Acute (4) Supervision of high-risk : Status: Acute Comment: , MARGUERITE 05/16/25, girl PC Raffy Sarkar Lieda, Stephen (5) : Status: Acute Qualifiers: Weeks of gestation: 18 weeks Qualified Code(s): Z3A.18 - 18 weeks gestation of Comment: NIPT low risk, female (6) Lupus anticoagulant positive: Status: Acute Comment: repeat antibody testing ordered, normal range in July (7) History of miscarriage: Status: Acute Comment: x3 (8) Hypothyroidism: Status: Acute Comment: needs TSH qtrimester- currently increased Levothyroxine from 137 to 150mcg. rpt in one month from 04/14 visit. order in. pt aware. (9) Anxiety: Status: Acute Comment: Zoloft adequate/stable Orders: Orders POC Urinalysis 2 Dip (Clinic) Today 12/18/24 1506 derick DORSEY> Date _ Smiley Madrid MD Cosign Signature: Date (if applicable) CC: ~ [facility]08-14-2025 Progress note Author Smiley Madrid [facility] Center Services Note Date/Time December 18, 2024 3: 06pm [facility] [address] [place] [address], [address] [place] [address] OFFICE VISIT Date of Service: 12/18/24 MR#: [id number] Acct: [id number] Name: SAMI CARRBRENDANAliyaKARRI p #: [phone] : 1990 Provider: Dr. Darren Madrid MD Age/Sex: 34/F Location: [facility] [place] Status: Signed Intake Vital Signs 11/18/24 10:04 12/01/24 10:40 12/18/24 14:13 12/18/24 14:16 Height 5 ft 4 in 5 ft 4 in 5 ft 4 in 5 ft 4 in Weight: 162 lb 9 oz BMI 27.8 BP 121/70 H Intake Visit Reasons: 17 WK OB Rn Chronic Required: No Is patient in pain?: Yes (wrist pain/numbness) Allergies nitrofurantoin Allergy (Mild, Verified 12/18/24 14:12) Hives Medications ?Medication ?Instructions ?Recorded ?Confirmed ?Type sertraline 25 mg tablet 25 mg PO DAILY anxiety #30 t abs 10/18/22 12/18/24 Rx levothyroxine 150 mcg tablet 150 mcg PO .COMPLEX hypot hyorid 10/03/24 12/18/24 History multivit-min no.71-iron fum 28 cap PO 10/03/24 5 History mg-folate no.1 1 mg-dha 300 mg capsule (PNV-Merrifield) Last Menstrual Period: 08/12/24 Zika: Zika virus screening: Negative : No PFSH PFSH Medical History AMA (advanced maternal age) multigravida 35+ H/O gestational diabetes in prior , currently Supervision of high-risk History of oligohydramnios in prior , currently Previous gestational diabetes mellitus, antepartum Spotting in early Hx of recurrent urinary tract infection delivery delivered History of pre-term labor History of premature rupture of membranes (PPROM) History of prior with IUGR Thyroid disorder Anemia affecting IUGR (intrauterine growth restriction) in prior , Surgical History H/O dilation and curettage H/O section Campbell teeth extracted S/P Family History Father Diabetes Grandfather Diabetes Paternal & Maternal Mother Seizures Social History adopted: Yes (13yrs old) household members: spouse and children housing: house number of children: 3 current occupational status: employed 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[employer] current 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/hazards: No pets and animals: Yes ( taking care of litter box) pets and animals: cat(s) and dog(s) history of recent travel: No sexually active: Yes Smoking Status: Never smoker alcohol intake: current alcohol intake frequency: holidays/special occasions only details: Not while substance use type: does not use well-balanced diet: daily or most days caffeine: No eating out: rarely or never during the past year weight has: remained stable what type of physical activity do you participate in: walking and weight training frequency: 3-4 times per week duration: 15-30 minutes/day fatou/christianity: Quaker seatbelt use: always do you feel safe at home: Yes additional social history: : Stephen - Management History 7 Elective abortions Hx Para 3 Spontaneous abortions 3 Hx # Term Pregnancies Ectopic pregnancies Hx # Pregnancies Multiple births # of living children 3 Past Pregnancies Del. Date Name GA/Weeks Outcome Route Bth Weight Infant Gen Labor Lgth Anesthesia Del Locatn Provider FOB 04/03/17 Antonina 40 live - full term 7lbs 12oz Fem sahil 3 days epidural [facility] Dr[facility] 01/10/19 Raffy 36 live - 5lbs 12oz Male 0 spinal [place] Gust[facility] 11/19/20 5 spontaneous 08/22/21 Lieda 39 live - full term 7lbs 3oz Female spinal [facility] 07/16/23 5 spontaneous 04/21/24 11 spontaneous SM Delivery Date: 04/03/17 Last Updated by: Kim Olsen STAT c/s nuchal cord; distress Delivery Date: 01/10/19 Last Updated by: Kim Olsen PPROM, STAT C/S; IUGR; Oligo Delivery Date: 08/22/21 Last Updated by: Karina Chávez RLS Delivery Date: 04/21/24 Last Updated by: Alice Padilla, RN D&C, measuring 9w1d HPI 17 WK OB Details: KARRI VILLAVICENCIO is a 34 year old who presents for routine OB visit. OB Visit MARGUERITE Calculator Estimated Delivery Date Method Current WG Current Estimate 05/16/25 LMP (Certain) 18w 5d Other Estimates 05/15/25 Ultrasound #1 18w 6d Expected Delivery Route/Plan plans repeat c/s Specific Issue/Plans Covid status: [] Flu vaccine: [] Tdap vaccine: [] Rhogam: [] LARC form signed: [] Problem list reviewed and updated with the most current plan of care details and appropriate orders placed. Relevant counseling for the gestational age provided. Continue routine care and follow up unless otherwise noted in visit notes/problem list details Initial Weight: Not Recorded Date -?-?-?-?-?-?-?-?-?-?-?-?- EGA Weight BP Urine Prot -?-?-?-?-?-?-?-?-?-?-?-?- Glucose FHR FuHt Pres Dilation -?-?-?-?-?-?-?-?-?-?-?-?- Effaced St Visit Note 10/13/24 -?-?-?-?-?-?-?-?-?-?-?-?- 9w 2d 163 lb 2 oz 122/74 -?-?-?-?-?-?-?-?-?-?-?-?- 175 -?-?-?-?-?-?-?-?-?-?-?-?- KW- CRL cons wit h dates. Accepts NIPT-currently on ATB for UTI. will get culture in 4 weeks. would like to RTO in 2 weeks for FHT due to hx SAB. 10/27/24 -?-?-?-?-?-?-?-?-?-?-?-?- 11w 2d 161 lb 6 oz 116/62 Nega tive -?-?-?-?-?-?-?-?-?-?-?-?- Negative 168 -?-?-?-?-?-?-?-?-?-?-?-?- SM- no vb crmapi ng 11/18/24 -?-?-?-?-?-?-?-?-?-?-?-?- 14w 3d 159 lb 116/77 Negative -?-?-?-?-?-?-?-?-?-?-?-?- Negative 148 -?-?-?-?-?-?-?-?-?-?-?-?- JV- CRL measurin g 13 weeks 6 days. no complaints today. anaotmy scan ordered 12/01/24 -?-?-?-?-?-?-?-?-?-?-?-?- 16w 2d 161 lb 8 oz 115/72 Nega tive -?-?-?-?-?-?-?-?-?-?-?-?- Negative 145 -?-?-?-?-?-?-?-?-?-?-?-?- KW- no vb/crampi ng. +fm. anatomy US scheduled. declines AFP 12/18/24 -?-?-?-?-?-?-?-?-?-?-?-?- 18w 5d 162 lb 9 oz 121/70 -?-?-?-?-?-?-?-?-?-?-?-?- 145 -?-?-?-?-?-?-?-?-?-?-?-?- SM co right hand numbness and tingling, carpal tunnel like symptoms ACOG First Trimester First Trimester: Desire for , Alcohol, Tobacco Cessation, Illicit/Recreational Drug/Substance Use, Intimate Partner Violence, Barriers to care, Unstable Housing, Communication Barriers, Environmental/Work Hazards, Anticipated Course of Care, Toxoplasmosis Precations, Use of Any medications, Sexual activity, Exercise, Dental Care, Sauna/Hot tub use, Seat Belt use, Childbirth classes/Hospital facilities, Travel, Indications for Ultrasound and Screening for Aneuploidy; Discussed Coding Level of Care Code OB Routine Diagnoses UTI (urinary tract infection) during O23.40 Hx of section Z98.891 Advanced maternal age (AMA) in Supervision of high-risk O09.90 18 weeks gestation of Z3A.18 Weeks of gestation: 18 weeks Lupus anticoagulant positive R76.0 History of miscarriage Z87.59 Hypothyroidism E03.9 Anxiety F41.9 Assessment and Plan Assessment and Plan (1) UTI (urinary tract infection) during : Status: Acute Comment: at NOB. needs repeat culture in November (2) Hx of section: Status: Acute Comment: x3, plans c section (3) Advanced maternal age (AMA) in : Status: Acute (4) Supervision of high-risk : Status: Acute Comment: , MARGUERITE 05/16/25, girl PC Raffy Sarkar Lieda, Stephen (5) : Status: Acute Qualifiers: Weeks of gestation: 18 weeks Qualified Code(s): Z3A.18 - 18 weeks gestation of Comment: NIPT low risk, female (6) Lupus anticoagulant positive: Status: Acute Comment: repeat antibody testing ordered, normal range in July (7) History of miscarriage: Status: Acute Comment: x3 (8) Hypothyroidism: Status: Acute Comment: needs TSH qtrimester- currently increased Levothyroxine from 137 to 150mcg. rpt in one month from 04/14 visit. order in. pt aware. (9) Anxiety: Status: Acute Comment: Zoloft adequate/stable Orders: Orders POC Urinalysis 2 Dip (Clinic) Today 12/18/24 1506 <Electronically signed by Smiley sepulveda MD> Date _ Smiley Madrid MD [facility] Signature: Date (if applicable) CC: ~ [facility] Work Phone: [phone] [facility] [address] [place] [address], [address] [place] [address] OFFICE VISIT Date of Service: 12/01/24 MR#: [id number] Acct: [id number] Name: KARRI MARTIN p #: [phone] : 1990 Provider: EZEQUIEL San Age/Sex: 34/F Location: [facility] [place] Status: Signed Intake Vital Signs 10/13/24 08:23 11/18/24 10:04 12/01/24 10:40 Height 5 ft 4 in 5 ft 4 in 5 ft 4 in Weight: 161 lb 8 oz BMI 27.7 BP 115/72 Intake Visit Reasons: Heartbeat check Chief Complaint: Heartbeat check Rn Chronic Required: No Is patient in pain?: No Allergies nitrofurantoin Allergy (Mild, Verified 11/18/24 10:02) Hives Medications ?Medication ?Instructions ?Recorded ?Confirmed ?Type sertraline 25 mg tablet 25 mg PO DAILY anxiety #30 t abs 10/18/22 12/01/24 Rx levothyroxine 150 mcg tablet 150 mcg PO .COMPLEX hypot hyorid 10/03/24 12/01/24 History multivit-min no.71-iron fum 28 cap PO 10/03/24 5 History mg-folate no.1 1 mg-dha 300 mg capsule (PNV-Merrifield) Last Menstrual Period: 08/12/24 : No Have you fallen in the past year?: No PFSH PFSH Medical History AMA (advanced maternal age) multigravida 35+ H/O gestational diabetes in prior , currently Supervision of high-risk History of oligohydramnios in prior , currently Previous gestational diabetes mellitus, antepartum Spotting in early Hx of recurrent urinary tract infection delivery delivered History of pre-term labor History of premature rupture of membranes (PPROM) History of prior with IUGR Thyroid disorder Anemia affecting IUGR (intrauterine growth restriction) in prior , Surgical History H/O dilation and curettage H/O section Campbell teeth extracted S/P Family History Father Diabetes Grandfather Diabetes Paternal & Maternal Mother Seizures Social History adopted: Yes (13yrs old) household members: spouse and children housing: house number of children: 3 current occupational status: employed 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[employer] current 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/hazards: No pets and animals: Yes ( taking care of litter box) pets and animals: cat(s) and dog(s) history of recent travel: No sexually active: Yes Smoking Status: Never smoker alcohol intake: current alcohol intake frequency: holidays/special occasions only details: Not while substance use type: does not use well-balanced diet: daily or most days caffeine: No eating out: rarely or never during the past year weight has: remained stable what type of physical activity do you participate in: walking and weight training frequency: 3-4 times per week duration: 15-30 minutes/day fatou/christianity: Quaker seatbelt use: always do you feel safe at home: Yes additional social history: : Stephen - Management History 7 Elective abortions Hx Para 3 Spontaneous abortions 3 Hx # Term Pregnancies Ectopic pregnancies Hx # Pregnancies Multiple births # of living children 3 Past Pregnancies Del. Date Name GA/Weeks Outcome Route Bth Weight Gen Labor Lgth Anesthesia Del Locatn Provider FOB 04/03/17 Antonina 40 live - full term 7lbs 12oz Fem sahil 3 days epidural [facility] Dr[facility] 01/10/19 Raffy 34 live - 5lbs 12oz Male 0 spinal [place] Betzya [facility] 11/19/20 5 spontaneous 08/22/21 Lieda 39 live - full term 7lbs 3oz Female spinal [facility] 07/16/23 5 spontaneous 04/21/24 11 spontaneous SM Delivery Date: 04/03/17 Last Updated by: Kim Olsen STAT c/s nuchal cord; distress Delivery Date: 01/10/19 Last Updated by: Kim Olsen PPROM, STAT C/S; IUGR; Oligo Delivery Date: 08/22/21 Last Updated by: Karina Chávez [facility] Delivery Date: 04/21/24 Last Updated by: Alice Padilla RN D&C, measuring 9w1d HPI Heartbeat check Details: KARRI VILLAVICENCIO is a 34 year old who presents for routine OB visit. OB Visit MARGUERITE Calculator Estimated Delivery Date Method Current WG Current Estimate 05/16/25 LMP (Certain) 16w 2d Other Estimates 05/15/25 Ultrasound #1 16w 3d Expected Delivery Route/Plan plans repeat c/s Specific Issue/Plans Covid status: [] Flu vaccine: [] Tdap vaccine: [] Rhogam: [] LARC form signed: [] Problem list reviewed and updated with the most current plan of care details and appropriate ordersplaced. Relevant counseling for the gestational age provided. Continue routine care and follow up unless otherwise noted in visit notes/problem list details Initial Weight: Not Recorded Date -?-?-?-?-?-?-?-?-?-?-?-?- EGA Weight BP Urine Prot -?-?-?-?-?-?-?-?-?-?-?-?- Glucose FHR FuHt Pres Dilation -?-?-?-?-?-?-?-?-?-?-?-?- Effaced St Visit Note 10/13/24 -?-?-?-?-?-?-?-?-?-?-?-?- 9w 2d 163 lb 2 oz 122/74 -?-?-?-?-?-?-?-?--?-?-?-?- 175 -?-?-?-?-?-?-?-?-?-?-?-?- KW- CRL cons wit h dates. Accepts NIPT-currently on ATB for UTI. will get culture in 4 weeks. would like to RTO in 2 weeks for FHT due to hx SAB. 10/27/24 -?-?-?-?-?-?-?-?-?-?-?-?- 11w 2d 161 lb 6 oz 116/62 Nega tive -?-?-?-?-?-?-?-?-?-?-?-?- Negative 168 -?-?-?-?-?-?-?-?-?-?-?-?- SM- no vb crmapi ng 11/18/24 -?-?-?-?-?-?-?-?-?-?-?-?- 14w 3d 159 lb 116/77 Negative -?-?-?-?-?-?-?-?-?-?-?-?- Negative 148 -?-?-?-?-?-?-?-?-?-?-?-?- JV- CRL measurin g 13 weeks 6 days. no complaints today. anaotmy scan ordered 12/01/24 -?-?-?-?-?-?-?-?-?-?-?-?- 16w 2d 161 lb 8 oz 115/72 Nega tive -?-?-?-?-?-?-?-?-?-?-?-?- Negative 145 -?-?-?-?-?-?-?-?-?-?-?-?- KW- no vb/crampi ng. +fm. anatomy US scheduled. declines AFP ACOG First Trimester First Trimester: Desire for , Alcohol, Tobacco Cessation, Illicit/Recreational Drug/Substance Use, Intimate Partner Violence, Barriers to care, Unstable Housing, Communication Barriers, Environmental/Work Hazards, Anticipated Course of Care, Toxoplasmosis Precations, Use of Any med ications, Sexual activity, Exercise, Dental Care, Sauna/Hot tub use, Seat Belt use, Childbirth classes/Hospital facilities, Travel, Indications for Ultrasound and Screening for Aneuploidy; Discussed ROS Const Reports system reviewed and no additional complaints, except as documented Eyes Reports system reviewed and no additional complaints, except as documented ENT Reports system reviewed and no additional complaints, except as documented Card Reports system reviewed and no additional complaints, except as documented Resp Reports system reviewed and no additional complaints, except as documented GI Reports system reviewed and no additional complaints, except as documented, Denies nausea and Denies vomiting Reports system reviewed and no additional complaints, except as documented Musc Reports system reviewed and no additional complaints, except as documented Skin/Breast Reports system reviewed and no additional complaints, except as documented Neuro Yes system reviewed and no additional complaints, except as documented Psych Reports system reviewed and no additional complaints, except as documented Endo Reports system reviewed and no additional complaints, except as documented Allen/Lymph Reports system reviewed and no additional complaints, except as documented Aller/Immun Reports system reviewed and no additional complaints, except as documented Exam Const General: cooperative, healthy appearing and no acute distress Orientation: alert, awake and oriented x3 Neck Neck: normal visual inspection and full ROM Resp Effort & Inspection: normal respiratory effort, able to speak in complete sentences and symmetric chest movement GI Inspection: normal to inspection Palpation: soft and other Other: gravid Skin General: no rashes or lesions noted Neuro General: patient alert, patient awake and patient oriented x3 Cognition: normal cognition Speech: speech normal Gait: normal gait Motor: muscle tone normal throughout Extrem General: normal to inspection and full ROM Psych Appearance: grossly normal Mental Status: mental status grossly normal Mood: congruent mood Affect: normal affect Speech and Movement: speech and movement normal Attitude: cooperative Thought Process: normal Thought Content: normal Judgment: judgment good Results POC Urinalysis 2 Dip (Clinic) Office Urine Glucose Negative Last Edit by Soniya Cornell on 12/01/24 10:46 Office Urine Protein Negative Last Edit by Soniya Cornell on 12/01/24 10:46 Coding Level of Care Code OB Routine Diagnoses UTI (urinary tract infection) during O23.40 Hx of section Z98.891 Advanced maternal age (AMA) in Supervision of high-risk O09.90 16 weeks gestation of Z3A.16 Weeks of gestation: 16 weeks Lupus anticoagulant positive R76.0 History of miscarriage Z87.59 Hypothyroidism E03.9 Anxiety F41.9 Assessment and Plan Assessment and Plan (1) UTI (urinary tract infection) during : Status: Acute Comment: at NOB. needs repeat culture in November (2) Hx of section: Status: Acute Comment: x3, plans c section (3) Advanced maternal age (AMA) in : Status: Acute (4) Supervision of high-risk : Status: Acute Comment: , MARGUERITE 05/16/25, Raffy Christopher Lieda, Stephen (5) : Status: Acute Qualifiers: Weeks of gestation: 16 weeks Qualified Code(s): Z3A.16 - 16 weeks gestation of Comment: NIPT low risk, female (6) Lupus anticoagulant positive: Status: Acute Comment: repeat antibody testing ordered, normal range in July (7) History of miscarriage: Status: Acute Comment: x3 (8) Hypothyroidism: Status: Acute Comment: needs TSH qtrimester- currently increased Levothyroxine from 137 to 150mcg. rpt in one month from 04/14 visit. order in. pt aware. (9) Anxiety: Status: Acute Comment: Zoloft adequate/stable Orders: Orders POC Urinalysis 2 Dip (Clinic) Today Plan Details Additional Comments: ACOG trimester education reviewed and updated. see problem list details for updated plan management information and see below for orders placed atthis visit. GA appropriate handout given. Clinical Quality Measures Falls Risk Screening/Assistive Devices Have you fallen in the past year?: No 12/01/24 1053 s CNM> Date _ Margo San CNM Cosigner Signature: Date (if applicable) CC: ~ [facility]07-15-2025 Evaluation note* Diagnosis Onset Date Resolution Status Admit Date Advanced maternal age (AMA) in acute November 18, 2024 9:46am Anxiety acute November 18 9:46am History of miscarriage acute 2024 9:46am Hx of section acute 2024 9:46am Hypothyroidism acute November 18, 2024 9:46am Lupus anticoagulant positive acute November 18, 2024 9:46am acute November 18 9:46am Supervision of high-risk acute November 18, 2024 9:46am UTI (urinary tract infection ) during resolved November 18, 2024 9:46am Advanced maternal age (AMA) in acute December 01, 2024 10:35am Anxiety acute December 01 10:35am History of miscarriage acute 2024 10:35am Hx of section acute ly 2024 10:35am Hypothyroidism acute December 01, 2024 10:35am Lupus anticoagulant positive acute December 01, 2024 10:35am acute December 01 10:35am Supervision of high-risk acute December 01, 2024 10:35am UTI (urinary tract infection ) during resolved December 01, 2024 10:35am Advanced maternal age (AMA) in acute December 18 2:08pm Anxiety acute December 18, 025 2:08pm History of miscarriage acute Au natasha 2024 2:08pm Hx of section acute Au natasha 2024 2:08pm Hypothyroidism acute December 2:08pm Lupus anticoagulant positive acute December 18, 2024 2:08pm acute December 18, 2 025 2:08pm Supervision of high-risk acute December 18 2:08pm UTI (urinary tract infection ) during resolved December 18 2:08pm Advanced maternal age (AMA) in acute January 06, 2 025 3:54pm Anxiety acute January 06, 2025 3:54pm Family history of congenital anomaly of cardiovascular system acute January 06 2 025 3:54pm History of miscarriage acute Se pt2024 3:54pm Hx of section acute Se pt2024 3:54pm Hypothyroidism acute January 06, 2025 3:54pm Lupus anticoagulant positive acute January 06, 2025 3:54pm acute January 06, 2025 3:54pm Supervision of high-risk acute January 06, 025 3:54pm UTI (urinary tract infection ) during resolved January 06, 2025 3:54pm Advanced maternal age (AMA) in acute January 12, 2 025 2:26pm Anxiety acute January 12, 2025 2:26pm Family history of congenital anomaly of cardiovascular system acute January 12, 025 2:26pm History of miscarriage acute Se pt2024 2:26pm Hx of section acute Se pt2024 2:26pm Hypothyroidism acute January 12, 2025 2:26pm Lupus anticoagulant positive acute January 12, 2025 2:26pm acute January 12, 2025 2:26pm Recurrent urinary tract infection affecting in second trimester january 2:26pm Supervision of high-risk acute January 12, 2 025 2:26pm Advanced maternal age (AMA) in acute February 09 9:31am Anxiety acute February 09, 2 025 9:31am Family history of congenital anomaly of cardiovascular system acute February 09 9:31am History of miscarriage acute Oc tober 2024 9:31am Hx of section acute Oc tober 2024 9:31am Hypothyroidism acute February 9:31am Lupus anticoagulant positive acute February 09, 2025 9:31am acute February 09, 2 025 9:31am Recurrent urinary tract infection affecting in second trimester acute February 09, 2025 9:31am Supervision of high-risk acute February 09 9:31am Advanced maternal age (AMA) in acute February 23 9:34am Anxiety acute February 23, 2025 9:34am Family history of congenital anomaly of cardiovascular system acute February 23 9:34am History of miscarriage acute Oc 2024 9:34am Hx of section acute Oc 2024 9:34am Hypothyroidism acute February 232024 9:34am Lupus anticoagulant positive acute February 23, 2025 9:34am Mild anemia acute February 23, 2025 9:34am acute February 23, 2025 9:34am Recurrent urinary tract infection affecting in second trimester acute February 9:34am Supervision of high-risk acute February 23 9:34am Advanced maternal age (AMA) in acute March 09 10:41am Anxiety acute March 09, 2025 10:41am Family history of congenital anomaly of cardiovascular system acute March 09 10:41am History of miscarriage acute No 2024 10:41am Hx of section acute No 2024 10:41am Hypothyroidism acute March 092024 10:41am Lupus anticoagulant positive acute March 09, 2025 10:41am Mild anemia acute March 09, 2025 10:41am acute March 09, 2025 10:41am Recurrent urinary tract infection affecting in second trimester acute March 10:41am Supervision of high-risk acute March 09 10:41am [facility] Work Phone: [phone] NoteHNO ID: [id number] Author: ALBERTO WEBSTER LPN Service: ? Author Type: LICENSED NURSE Type: Progress Notes Filed: 10/29/2024 10:43 Note Text: Scan on 10/29/2024 10:13 AM by Hector Sauceda PA-C: [facility] of Present illness Narrative* Alberto Webster LPN - 10/29/2024 10:43 AM EDT Scan on 10/29/2024 10:13 AM by Provider, External, PAGary: Microbiology [facility] [address], [address] [place] [id number] OFFICE VISIT Date of Service: 10/27/24 MR#: [id number] Acct: [id number] Name: KARRI MARTIN [place] p #: [phone] : 1990 Provider: Dr. Darren Madrid MD Age/Sex: 34/F Location: [facility] [place] Status: Signed Intake Vital Signs 10/13/24 08:23 10/27/24 11:09 Height 5 ft 4 in 5 ft 4 in Weight: 161 lb 6 oz BMI 27.6 BP 116/62 Intake Visit Reasons: Heartbeat Check Rn Chronic Required: No Is patient in pain?: No Allergies nitrofurantoin Allergy (Mild, Verified 10/27/24 11:12) Hives Medications ?Medication ?Instructions ?Recorded ?Confirmed ?Type sertraline 25 mg tablet 25 mg PO DAILY anxiety #30 t abs 10/18/22 10/27/24 Rx levothyroxine 150 mcg tablet 150 mcg PO .COMPLEX hypot hyorid 10/03/24 10/27/24 History multivit-min no.71-iron fum 28 cap PO 10/03/24 5 History mg-folate no.1 1 mg-dha 300 mg capsule (PNV-Merrifield) Last Menstrual Period: 08/12/24 Zika: Zika virus screening: Negative : No PFSH PFSH Medical History AMA (advanced maternal age) multigravida 35+ H/O gestational diabetes in prior , currently Supervision of high-risk History of oligohydramnios in prior , currently Previous gestational diabetes mellitus, antepartum Spotting in early Hx of recurrent urinary tract infection delivery delivered History of pre-term labor History of premature rupture of membranes (PPROM) History of prior with IUGR Thyroid disorder Anemia affecting IUGR (intrauterine growth restriction) in prior , Surgical History H/O dilation and curettage H/O section Campbell teeth extracted S/P Family History Father Diabetes Grandfather Diabetes Paternal & Maternal Mother Seizures Social History adopted: Yes (13yrs old) household members: spouse and children housing: house number of children: 3 current occupational status: employed 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[employer] current 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/hazards: No pets and animals: Yes ( taking care of litter box) pets and animals: cat(s) and dog(s) history of recent travel: No sexually active: Yes Smoking Status: Never smoker alcohol intake: current alcohol intake frequency: holidays/special occasions only details: Not while substance use type: does not use well-balanced diet: daily or most days caffeine: No eating out: rarely or never during the past year weight has: remained stable what type of physical activity do you participate in: walking and weight training frequency: 3-4 times per week duration: 15-30 minutes/day fatou/christianity: Quaker seatbelt use: always do you feel safe at home: Yes additional social history: : Stephen - Management History 7 Elective abortions Hx Para 3 Spontaneous abortions 3 Hx # Term Pregnancies Ectopic pregnancies Hx # Pregnancies Multiple births # of living children 3 Past Pregnancies Del. Date Name GA/Weeks Outcome Route Bth Weight Infant Gen Labor Lgth Anesthesia Del Locatn Provider FOB 04/03/17 Antonina 40 live - full term 7lbs 12oz Fem sahil 3 days epidural [facility] Dr. Whitmore Stephen 01/10/19 Raffy 36 live - 5lbs 12oz Male 0 spinal Marisol Chen Stephen 11/19/20 5 spontaneous 08/22/21 Lieda 39 live - full term 7lbs 3oz Female spinal [facility] 07/16/23 5 spontaneous 04/21/24 11 spontaneous SM Delivery Date: 04/03/17 Last Updated by: Kim Olsen STAT c/s nuchal cord; distress Delivery Date: 01/10/19 Last Updated by: Kim Olsen PPROM, STAT C/S; IUGR; [place] Delivery Date: 08/22/21 Last Updated by: Karina Chávez RLTCS Delivery Date: 04/21/24 Last Updated by: Alice Padilla, YIN D&C, measuring 9w1d HPI Heartbeat Check Details: KARRI VILLAVICENCIO is a 34 year old who presents for routine OB visit. OB Visit MARGUERITE Calculator Estimated Delivery Date Method Current WG Current Estimate 05/16/25 LMP (Certain) 11w 2d Other Estimates 05/15/25 Ultrasound #1 11w 3d Expected Delivery Route/Plan plans repeat c/s Specific Issue/Plans Covid status: [] Flu vaccine: [] Tdap vaccine: [] Rhogam: [] LARC form signed: [] Problem list reviewed and updated with the most current plan of care details and appropriate ordersplaced. Relevant counseling for the gestational age provided. Continue routine care and follow up unless otherwise noted in visit notes/problem list details Initial Weight: Not Recorded Date -?-?-?-?-?-?-?-?-?-?-?-?- EGA Weight BP Urine Prot -?-?-?-?-?-?-?-?-?-?-?-?- Glucose FHR FuHt Pres Dilation -?-?-?-?-?-?-?-?-?-?-?-?- Effaced St Visit Note 10/13/24 -?-?-?-?-?-?-?-?-?-?-?-?- 9w 2d 163 lb 2 oz 122/74 -?-?-?-?-?-?-?-?-?-?-?-?- 175 -?-?-?-?-?-?-?-?-?-?-?-?- KW- CRL cons wit h dates. Accepts NIPT-currently on ATB for UTI. will get culture in 4 weeks. would like to RTO in 2 weeks for FHT due to hx SAB. 10/27/24 -?-?-?-?-?-?-?-?-?-?-?-?- 11w 2d 161 lb 6 oz 116/62 Nega tive -?-?-?-?-?-?-?-?-?-?-?-?- Negative 168 -?-?-?-?-?-?-?-?-?-?-?-?- SM- no vb crmapi ng ACOG First Trimester First Trimester: Desire for , Alcohol, Tobacco Cessation, Illicit/Recreational Drug/Substance Use, Intimate Partner Violence, Barriers to care, Unstable Housing, Communication Barriers, Environmental/Work Hazards, Anticipated Course of Care, Toxoplasmosis Precations, Use of Any med ications, Sexual activity, Exercise, Dental Care, Sauna/Hot tub use, Seat Belt use, Childbirth classes/Hospital facilities, Travel, Indications for Ultrasound and Screening for Aneuploidy; Discussed Results POC Urinalysis Dip (Clinic) Office Urine Color YELLOW Last Edit by Bulmaro Ocampo on 10/27/24 11:22 Office Urine Clarity Clear Last Edit by Bulmaro Ocampo on 10/27/24 11:22 Office Urine Glucose Negative Last Edit by Bulmaro Ocampo on 10/27/24 11:22 Office Urine Ketones Negative Last Edit by Bulmaro Ocampo on 10/27/24 11:22 Off Ur Spec [place] 1.010 Last Edit by Bulmaro Ocampo on 10/27/24 11:22 Office Urine pH 6.0 Last Edit by Bulmaro Ocampo on 10/27/24 11:22 Office Urine Bilirubin Negative Last Edit by Bulmaro Ocampo on 10/27/24 11: 22 Office Urine Urobilinogen Negative Last Edit by Blumaro Ocampo on 10/27/24 11:22 Office Urine Blood Negative Last Edit by Bulmaro Ocampo on 10/27/24 11:22 Office Urine Blood Hemolyzed NA Last Edit by Bulmaro Ocampo on 10/27/24 11: 22 Office Urine Protein Negative Last Edit by Bulmaro Ocampo on 10/27/24 11:22 Office Urine Nitrate Negative Last Edit by Bulmaro Ocampo on 10/27/24 11:22 Off Ur Leukocytes Negatve Last Edit by Bulmaro Ocampo on 10/27/24 11:22 Coding Level of Care Code OB Routine Diagnoses UTI (urinary tract infection) during O23.40 Hx of section Z98.891 Advanced maternal age (AMA) in Supervision of high-risk O09.90 11 weeks gestation of Z3A.11 Weeks of gestation: 11 weeks Lupus anticoagulant positive R76.0 History of miscarriage Z87.59 Hypothyroidism E03.9 Anxiety F41.9 Assessment and Plan Assessment and Plan (1) UTI (urinary tract infection) during : Status: Acute Comment: at NOB. needs repeat culture in November (2) Hx of section: Status: Acute Comment: x3, plans c section (3) Advanced maternal age (AMA) in : Status: Acute (4) Supervision of high-risk : Status: Acute Comment: , MARGUERITE 05/16/25, PC Raffy Sarkar Lieda, Stephen (5) : Status: Acute Qualifiers: Weeks of gestation: 11 weeks Qualified Code(s): Z3A.11 - 11 weeks gestation of Comment: elects NIPT with gender (6) Lupus anticoagulant positive: Status: Acute Comment: repeat antibody testing ordered, normal range in July (7) History of miscarriage: Status: Acute Comment: x3 (8) Hypothyroidism: Status: Acute Comment: needs TSH qtrimester- currently increased Levothyroxine from 137 to 150mcg. rpt in one month from 04/14 visit. order in. pt aware. (9) Anxiety: Status: Acute Comment: Zoloft adequate/stable Orders: Orders Culture, Urine Today R35.0 - Frequency of micturition POC Urinalysis Dip (Clinic) Today R35.0 - Frequency of micturition 10/27/24 1141 derick DORSEY> Date _ Smiley Madrid MD Cosigner Signature: Date (if applicable) CC: ~ [facility]06-12-2025 NoteHNO ID: [id number] Author: GEETA MONREAL MA Service: ? Author Type: Reservation Sales Agent Type: Progress Notes Filed: 11/03/2024 08:25 Note Text: Outside lab results. Updated HIV/Hep C in [facility]. View External Labs - CH/GC [ID [id number]] View External Labs - TSH, T4 Free, Rubella IgG, Syphilis Abs, HIV, Hep B Surf Ag, Hep C Ab [ID [id number]] View External Labs - WCH-blood type [ID [id number]] View External Labs - WCH-blood type [ID [id number]] View External Labs - Urine Culture [ID [id number]] View External Labs - TSH R AB SERUM [ID [id number]][facility] 10-16-2024 History of Present illness Narrative* Geeta Monreal MA - 10/16/2024 1:46 PM EDT Outside lab results. Updated HIV/Hep C in [facility]. View External Labs - CH/GC [ID [id number]] View External Labs - TSH, T4 Free, Rubella IgG, Syphilis Abs, HIV, Hep B Surf Ag, Hep C Ab [ID [id number]] View External Labs - WCH-blood type [ID [id number]] View External Labs - WCH-blood type [ID [id number]] View External Labs - Urine Culture [ID [id number]] [facility]* Diagnosis Onset Date Resolution Status Admit Date Advanced maternal age (AMA) in acute October 13, 2024 8 :19am Anxiety acute October 13, 2024 8:19am History of miscarriage acute Ju 2024 8:19am Hx of section acute 2024 8:19am Hypothyroidism acute October 13, 2024 8:19am Lupus anticoagulant positive acute October 13, 2024 8:19am acute October 13, 2024 8:19am Supervision of high-risk a cute October 13, 2024 8:19am UTI (urinary tract infection ) during acute October 13, 2024 8:19am [facility] Work Phone: [phone] Evaluation note* Diagnosis Onset Date Resolution Status Admit Date Advanced maternal age (AMA) in acute October 13, 2024 8 :19am Anxiety acute October 13, 2024 8:19am History of miscarriage acute Ju 2024 8:19am Hx of section acute Ju 2024 8:19am Hypothyroidism acute October 13, 2024 8:19am Lupus anticoagulant positive acute October 13, 2024 8:19am acute October 13, 2024 8:19am Supervision of high-risk acute October 13, 2024 8 :19am UTI (urinary tract infection ) during acute October 13, 2024 8:19am Advanced maternal age (AMA) in acute October 27, 2024 10:55am Anxiety acute October 27 10:55am History of miscarriage acute Ju 2024 10:55am Hx of section acute 2024 10:55am Hypothyroidism acute October 27, 2024 10:55am Lupus anticoagulant positive acute October 27, 2024 10:55am acute October 27 10:55am Supervision of high-risk acute October 27, 2024 10:55am UTI (urinary tract infection ) during acute October 27, 2024 10:55am [facility] Work Phone: [phone]) 251-507906-09-2025 Evaluation note* Diagnosis Onset Date Resolution Status Admit Date Advanced maternal age (AMA) in acute October 13, 2024 8 :19am Anxiety acute October 13, 2024 8:19am History of miscarriage acute 2024 8:19am Hx of section acute 2024 8:19am Hypothyroidism acute October 13, 2024 8:19am Lupus anticoagulant positive acute October 13, 2024 8:19am acute October 13, 2024 8:19am Supervision of high-risk acute October 13, 2024 8 :19am UTI (urinary tract infection ) during acute October 13, 2024 8:19am Advanced maternal age (AMA) in acute October 27, 2024 10:55am Anxiety acute October 27 10:55am History of miscarriage acute Ju 2024 10:55am Hx of section acute Ju 2024 10:55am Hypothyroidism acute October 27, 2024 10:55am Lupus anticoagulant positive acute October 27, 2024 10:55am acute October 27 10:55am Supervision of high-risk acute October 27, 2024 10:55am UTI (urinary tract infection ) during acute October 27, 2024 10:55am Advanced maternal age (AMA) in acute November 18, 2024 9:46am Anxiety acute November 18 9:46am History of miscarriage acute Ju ly 2024 9:46am Hx of section acute Ju 2024 9:46am Hypothyroidism acute November 18, 2024 9:46am Lupus anticoagulant positive acute November 18, 2024 9:46am acute November 18 9:46am Supervision of high-risk acute November 18, 2024 9:46am UTI (urinary tract infection ) during acute November 18, 2024 9:46am [facility] Work Phone: 1(171) 130-274306-09-2025 Evaluation note* Diagnosis Onset Date Resolution Status Admit Date Advanced maternal age (AMA) in acute October 13, 2024 8 :19am Anxiety acute October 13, 2024 8:19am History of miscarriage acute Ju 2024 8:19am Hx of section acute Ju 2024 8:19am Hypothyroidism acute October 13, 2024 8:19am Lupus anticoagulant positive acute October 13, 2024 8:19am acute October 13, 2024 8:19am Supervision of high-risk acute October 13, 2024 8 :19am UTI (urinary tract infection ) during acute October 13, 2024 8:19am Advanced maternal age (AMA) in acute October 27, 2024 10:55am Anxiety acute October 27 10:55am History of miscarriage acute Ju 2024 10:55am Hx of section acute Ju 2024 10:55am Hypothyroidism acute October 27, 2024 10:55am Lupus anticoagulant positive acute October 27, 2024 10:55am acute October 27 10:55am Supervision of high-risk acute October 27, 2024 10:55am UTI (urinary tract infection ) during acute October 27, 2024 10:55am Advanced maternal age (AMA) in acute November 18, 2024 9:46am Anxiety acute November 18 9:46am History of miscarriage acute Ju 2024 9:46am Hx of section acute Ju 2024 9:46am Hypothyroidism acute November 18, 2024 9:46am Lupus anticoagulant positive acute November 18, 2024 9:46am acute November 18 9:46am Supervision of high-risk acute November 18, 2024 9:46am UTI (urinary tract infection ) during acute November 18, 2024 9:46am Advanced maternal age (AMA) in acute December 01, 2024 10:35am Anxiety acute December 01 10:35am History of miscarriage acute 2024 10:35am Hx of section acute 2024 10:35am Hypothyroidism acute December 01, 2024 10:35am Lupus anticoagulant positive acute December 01, 2024 10:35am acute December 01 10:35am Supervision of high-risk acute December 01, 2024 10:35am UTI (urinary tract infection ) during acute December 01, 2024 10:35am [facility] Work Phone: [phone]) 904-518706-09-2025 Evaluation note* Diagnosis Onset Date Resolution Status Admit Date Advanced maternal age (AMA) in acute October 13, 2024 8 :19am Anxiety acute October 13, 2024 8:19am History of miscarriage acute Ju 2024 8:19am Hx of section acute 2024 8:19am Hypothyroidism acute October 13, 2024 8:19am Lupus anticoagulant positive acute October 13, 2024 8:19am acute October 13, 2024 8:19am Supervision of high-risk acute October 13, 2024 8 :19am UTI (urinary tract infection ) during acute October 13, 2024 8:19am Advanced maternal age (AMA) in acute October 27, 2024 10:55am Anxiety acute October 27 10:55am History of miscarriage acute Ju ne 2024 10:55am Hx of section acute Ju ne 2024 10:55am Hypothyroidism acute October 27, 2024 10:55am Lupus anticoagulant positive acute October 27, 2024 10:55am acute October 27 10:55am Supervision of high-risk acute October 27, 2024 10:55am UTI (urinary tract infection ) during acute October 27, 2024 10:55am Advanced maternal age (AMA) in acute November 18, 2024 9:46am Anxiety acute November 18 9:46am History of miscarriage acute Ju ly 2024 9:46am Hx of section acute Ju ly 2024 9:46am Hypothyroidism acute November 18, 2024 9:46am Lupus anticoagulant positive acute November 18, 2024 9:46am acute November 18 9:46am Supervision of high-risk acute November 18, 2024 9:46am UTI (urinary tract infection ) during acute November 18, 2024 9:46am Advanced maternal age (AMA) in acute December 01, 2024 10:35am Anxiety acute December 01 10:35am History of miscarriage acute Ju ly 2024 10:35am Hx of section acute Ju ly 2024 10:35am Hypothyroidism acute December 01, 2024 10:35am Lupus anticoagulant positive acute December 01, 2024 10:35am acute December 01 10:35am Supervision of high-risk acute December 01, 2024 10:35am UTI (urinary tract infection ) during acute December 01, 2024 10:35am Advanced maternal age (AMA) in acute December 18 2:08pm Anxiety acute December 18, 025 2:08pm History of miscarriage acute Au natasha 2024 2:08pm Hx of section acute Au natasha 2024 2:08pm Hypothyroidism acute December 2:08pm Lupus anticoagulant positive acute December 18, 2024 2:08pm acute December 18 025 2:08pm Supervision of high-risk acute December 18 2:08pm UTI (urinary tract infection ) during acute December 18 2:08pm [facility] Work Phone: [phone]) 213-211706-09-2025 Evaluation note* Diagnosis Onset Date Resolution Status Admit Date Advanced maternal age (AMA) in acute October 13, 2024 8 :19am Anxiety acute October 13, 2024 8:19am History of miscarriage acute 2024 8:19am Hx of section acute 2024 8:19am Hypothyroidism acute October 13, 2024 8:19am Lupus anticoagulant positive acute October 13, 2024 8:19am acute October 13, 2024 8:19am Supervision of high-risk acute October 13, 2024 8 :19am UTI (urinary tract infection ) during acute October 13, 2024 8:19am Advanced maternal age (AMA) in acute October 27, 2024 10:55am Anxiety acute October 27 10:55am History of miscarriage acute 2024 10:55am Hx of section acute 2024 10:55am Hypothyroidism acute October 27, 2024 10:55am Lupus anticoagulant positive acute October 27, 2024 10:55am acute October 27 10:55am Supervision of high-risk acute October 27, 2024 10:55am UTI (urinary tract infection ) during acute October 27, 2024 10:55am Advanced maternal age (AMA) in acute November 18, 2024 9:46am Anxiety acute November 18 9:46am History of miscarriage acute 2024 9:46am Hx of section acute 2024 9:46am Hypothyroidism acute November 18, 2024 9:46am Lupus anticoagulant positive acute November 18, 2024 9:46am acute November 18 9:46am Supervision of high-risk acute November 18, 2024 9:46am UTI (urinary tract infection ) during acute November 18, 2024 9:46am Advanced maternal age (AMA) in acute December 01, 2024 10:35am Anxiety acute December 01 10:35am History of miscarriage acute Ju ly 2024 10:35am Hx of section acute Ju ly 2024 10:35am Hypothyroidism acute December 01, 2024 10:35am Lupus anticoagulant positive acute December 01, 2024 10:35am acute December 01 10:35am Supervision of high-risk acute December 01, 2024 10:35am UTI (urinary tract infection ) during acute December 01, 2024 10:35am Advanced maternal age (AMA) in acute December 18 2:08pm Anxiety acute December 18, 025 2:08pm History of miscarriage acute Au natasha 2024 2:08pm Hx of section acute Au natasha 2024 2:08pm Hypothyroidism acute December 2:08pm Lupus anticoagulant positive acute December 18, 2024 2:08pm acute December 18, 025 2:08pm Supervision of high-risk acute December 18 2:08pm UTI (urinary tract infection ) during acute December 18 2:08pm Advanced maternal age (AMA) in acute January 06, 025 3:54pm Anxiety acute January 06, 2025 3:54pm Family history of congenital anomaly of cardiovascular system acute January 06, 025 3:54pm History of miscarriage acute Se pt2024 3:54pm Hx of section acute Se pt2024 3:54pm Hypothyroidism acute January 06, 2025 3:54pm Lupus anticoagulant positive acute January 06, 2025 3:54pm acute January 06, 2025 3:54pm Supervision of high-risk acute January 06 025 3:54pm UTI (urinary tract infection ) during acute January 06, 2025 3:54pm [facility] Work Phone: [phone]) 515-464806-09-2025 Evaluation note* Diagnosis Onset Date Resolution Status Admit Date Advanced maternal age (AMA) in acute October 13, 2024 8 :19am Anxiety acute October 13, 2024 8:19am History of miscarriage acute Ju ne 2024 8:19am Hx of section acute Ju ne 2024 8:19am Hypothyroidism acute October 13, 2024 8:19am Lupus anticoagulant positive acute October 13, 2024 8:19am acute October 13, 2024 8:19am Supervision of high-risk acute October 13, 2024 8 :19am UTI (urinary tract infection ) during resolved October 13, 2024 8:19am Advanced maternal age (AMA) in acute October 27, 2024 10:55am Anxiety acute October 27 10:55am History of miscarriage acute Ju 2024 10:55am Hx of section acute Ju ne 2024 10:55am Hypothyroidism acute October 27, 2024 10:55am Lupus anticoagulant positive acute October 27, 2024 10:55am acute October 27 10:55am Supervision of high-risk acute October 27, 2024 10:55am UTI (urinary tract infection ) during resolved October 27, 2024 10:55am Advanced maternal age (AMA) in acute November 18, 2024 9:46am Anxiety acute November 18 9:46am History of miscarriage acute Ju ly 2024 9:46am Hx of section acute Ju ly 2024 9:46am Hypothyroidism acute November 18, 2024 9:46am Lupus anticoagulant positive acute November 18, 2024 9:46am acute November 18 9:46am Supervision of high-risk acute November 18, 2024 9:46am UTI (urinary tract infection ) during resolved November 18, 2024 9:46am Advanced maternal age (AMA) in acute December 01, 2024 10:35am Anxiety acute December 01 10:35am History of miscarriage acute Ju ly 2024 10:35am Hx of section acute Ju ly 2024 10:35am Hypothyroidism acute December 01, 2024 10:35am Lupus anticoagulant positive acute December 01, 2024 10:35am acute December 01 10:35am Supervision of high-risk acute December 01, 2024 10:35am UTI (urinary tract infection ) during resolved December 01, 2024 10:35am Advanced maternal age (AMA) in acute December 18 2:08pm Anxiety acute December 18, 2 025 2:08pm History of miscarriage acute Au natasha 2024 2:08pm Hx of section acute Au natasha 2024 2:08pm Hypothyroidism acute December 2:08pm Lupus anticoagulant positive acute December 18, 2024 2:08pm acute December 18, 2 025 2:08pm Supervision of high-risk acute December 18 2:08pm UTI (urinary tract infection ) during resolved December 18 2:08pm Advanced maternal age (AMA) in acute January 06, 2 025 3:54pm Anxiety acute January 06, 2025 3:54pm Family history of congenital anomaly of cardiovascular system acute January 06 025 3:54pm History of miscarriage acute Se pt2024 3:54pm Hx of section acute Se pt2024 3:54pm Hypothyroidism acute January 06, 2025 3:54pm Lupus anticoagulant positive acute January 06, 2025 3:54pm acute January 06, 2025 3:54pm Supervision of high-risk acute January 06, 025 3:54pm UTI (urinary tract infection ) during resolved January 06, 2025 3:54pm Advanced maternal age (AMA) in acute January 12, 025 2:26pm Anxiety acute January 12, 2025 2:26pm Family history of congenital anomaly of cardiovascular system acute January 12, 025 2:26pm History of miscarriage acute Se pt2024 2:26pm Hx of section acute Se pt2024 2:26pm Hypothyroidism acute January 12, 2025 2:26pm Lupus anticoagulant positive acute January 12, 2025 2:26pm acute January 12, 2025 2:26pm Recurrent urinary tract infection affecting in second trimester acute January 2:26pm Supervision of high-risk acute January 12 025 2:26pm [facility] Work Phone: [phone]) 943-975506-09-2025 Evaluation note* Diagnosis Onset Date Resolution Status Admit Date Advanced maternal age (AMA) in acute October 13, 2024 8 :19am Anxiety acute October 13, 2024 8:19am History of miscarriage acute Ju ne 2024 8:19am Hx of section acute Ju ne 2024 8:19am Hypothyroidism acute October 13, 2024 8:19am Lupus anticoagulant positive acute October 13, 2024 8:19am acute October 13, 2024 8:19am Supervision of high-risk acute October 13, 2024 8 :19am UTI (urinary tract infection ) during resolved October 13, 2024 8:19am Advanced maternal age (AMA) in acute October 27, 2024 10:55am Anxiety acute October 27 10:55am History of miscarriage acute Ju 2024 10:55am Hx of section acute Ju 2024 10:55am Hypothyroidism acute October 27, 2024 10:55am Lupus anticoagulant positive acute October 27, 2024 10:55am acute October 27 10:55am Supervision of high-risk acute October 27, 2024 10:55am UTI (urinary tract infection ) during resolved October 27, 2024 10:55am Advanced maternal age (AMA) in acute November 18, 2024 9:46am Anxiety acute November 18 9:46am History of miscarriage acute Ju ly 2024 9:46am Hx of section acute Ju ly 2024 9:46am Hypothyroidism acute November 18, 2024 9:46am Lupus anticoagulant positive acute November 18, 2024 9:46am acute November 18 9:46am Supervision of high-risk acute November 18, 2024 9:46am UTI (urinary tract infection ) during resolved November 18, 2024 9:46am Advanced maternal age (AMA) in acute December 01, 2024 10:35am Anxiety acute December 01 10:35am History of miscarriage acute Ju 2024 10:35am Hx of section acute Ju ly 2024 10:35am Hypothyroidism acute December 01, 2024 10:35am Lupus anticoagulant positive acute December 01, 2024 10:35am acute December 01 10:35am Supervision of high-risk acute December 01, 2024 10:35am UTI (urinary tract infection ) during resolved December 01, 2024 10:35am Advanced maternal age (AMA) in acute December 18 2:08pm Anxiety acute December 18, 2 025 2:08pm History of miscarriage acute Au natasha 2024 2:08pm Hx of section acute Au natasha 2024 2:08pm Hypothyroidism acute December 2:08pm Lupus anticoagulant positive acute December 18, 2024 2:08pm acute December 18, 2 025 2:08pm Supervision of high-risk acute December 18 2:08pm UTI (urinary tract infection ) during resolved December 18 2:08pm Advanced maternal age (AMA) in acute January 06, 2 025 3:54pm Anxiety acute January 06, 2025 3:54pm Family history of congenital anomaly of cardiovascular system acute January 06, 2 025 3:54pm History of miscarriage acute Se pt2024 3:54pm Hx of section acute Se pt2024 3:54pm Hypothyroidism acute January 06, 2025 3:54pm Lupus anticoagulant positive acute January 06, 2025 3:54pm acute January 06, 2025 3:54pm Supervision of high-risk acute January 06, 025 3:54pm UTI (urinary tract infection ) during resolved January 06, 2025 3:54pm Advanced maternal age (AMA) in acute January 12, 2 025 2:26pm Anxiety acute January 12, 2025 2:26pm Family history of congenital anomaly of cardiovascular system acute January 12, 2 025 2:26pm History of miscarriage acute Se pt2024 2:26pm Hx of section acute Se pt2024 2:26pm Hypothyroidism acute January 12, 2025 2:26pm Lupus anticoagulant positive acute January 12, 2025 2:26pm acute January 12, 2025 2:26pm Recurrent urinary tract infection affecting in second trimester january 2:26pm Supervision of high-risk acute January 12, 2 025 2:26pm Advanced maternal age (AMA) in acute February 09 9:31am Anxiety acute February 09, 2 025 9:31am Family history of congenital anomaly of cardiovascular system acute October 6th, 202 5 9:31am History of miscarriage acute Oc tob2024 9:31am Hx of section acute Oc 2024 9:31am Hypothyroidism acute February 9:31am Lupus anticoagulant positive acute February 09, 2025 9:31am acute February 09, 2 025 9:31am Recurrent urinary tract infection affecting in second trimester acute February 09, 2025 9:31am Supervision of high-risk acute February 09 9:31am [facility] Work Phone: [phone]) 103-756206-09-2025 [facility] [address] [place] [address], [address] [place] [address] OFFICE VISIT Date of Service: 10/13/24 MR#: [id number] Acct: [id number] Name: KARRI MARTIN Alta p #: [phone] : 1990 Provider: EZEQUIEL San Age/Sex: 34/F Location: [facility] [place] Status: Signed Intake Vital Signs 05/19/24 11:13 10/13/24 08:22 10/13/24 08:23 Height 5 ft 4 in 5 ft 4 in 5 ft 4 in Weight: 163 lb 2 oz BMI 28.0 BP 122/74 H Intake Visit Reasons: *EST* NOB LMP 4/5, MARGUERITE 05/16 Rn Chronic Required: No Is patient in pain?: No Allergies nitrofurantoin Allergy (Mild, Verified 10/13/24 08:24) Hives Medications ?Medication ?Instructions ?Recorded ?Confirmed ?Type sertraline 25 mg tablet 25 mg PO DAILY anxiety #30 t abs 10/18/22 10/13/24 Rx levothyroxine 150 mcg tablet 150 mcg PO .COMPLEX hypot hyorid 10/03/24 10/13/24 History multivit-min no.71-iron fum 28 cap PO 10/03/24 5 History mg-folate no.1 1 mg-dha 300 mg capsule (PNV-Merrifield) Last Menstrual Period: 08/12/24 Zika: Zika virus screening: Negative : No PFSH PFSH Medical History AMA (advanced maternal age) multigravida 35+ H/O gestational diabetes in prior , currently Supervision of high-risk History of oligohydramnios in prior , currently Previous gestational diabetes mellitus, antepartum Spotting in early Hx of recurrent urinary tract infection delivery delivered History of pre-term labor History of premature rupture of membranes (PPROM) History of prior with IUGR Thyroid disorder Anemia affecting IUGR (intrauterine growth restriction) in prior , Surgical History H/O dilation and curettage H/O section [place] teeth extracted S/P Family History Father Diabetes Grandfather Diabetes Paternal & Maternal Mother Seizures Social History adopted: Yes (13yrs old) household members: spouse and children housing: house number of children: 3 service: No current occupational status: employed 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[employer] current 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/hazards: No pets and animals: Yes ( taking care of litter box) pets and animals: cat(s) and dog(s) history of recent travel: No sexually active: Yes Smoking Status: Never smoker alcohol intake: current alcohol intake frequency: holidays/special occasions only details: Not while substance use type: does not use well-balanced diet: daily or most days caffeine: No eating out: rarely or never during the past year weight has: remained stable what type of physical activity do you participate in: walking and weight training frequency: 3-4 times per week duration: 15-30 minutes/day fatou/christianity: Quaker seatbelt use: always do you feel safe at home: Yes additional social history: : Stephen - Management History 7 Elective abortions Hx Para 3 Spontaneous abortions 3 Hx # Term Pregnancies Ectopic pregnancies Hx # Pregnancies Multiple births # of living children 3 Past Pregnancies Del. Date Name GA/Weeks Outcome Route Bth Weight Infant Gen Labor Lgth Anesthesia Del Locatn Provider FOB 04/03/17 Antonina 40 live - full term 7lbs 12oz Fem sahil 3 days epidural [facility] Dr. Myranda Mitchell 09/06/19 Raffy 36 live - 5lbs 12oz Male 0 spinal Marisol Chen Stephen 11/19/20 5 spontaneous 08/22/21 Lieda 39 live - full term 7lbs 3oz Female spinal [facility] 07/16/23 5 spontaneous 04/21/24 11 spontaneous SM Delivery Date: 04/03/17 Last Updated by: Kim Olsen STAT c/s nuchal cord; distress Delivery Date: 01/10/19 Last Updated by: Kim Olsen PPROM, STAT C/S; IUGR; [place] Delivery Date: 08/22/21 Last Updated by: Karina Chávez RLTCS Delivery Date: 04/21/24 Last Updated by: Alice Padilla RN D&C, measuring 9w1d HPI *EST* NOB LMP 4/5, MARGUERITE 05/16 Details: KARRI VILLAVICENCIO is a 34 year old who presents for New OB visit. OB Visit MARGUERITE Calculator Estimated Delivery Date Method Current WG Current Estimate 05/16/25 LMP (Certain) 9w 2d Other Estimates 05/15/25 Ultrasound #1 9w 3d Comments: HIV: Urine Culture: Sequential Screen: NIPT Screen: Estimated Due Date: 05/16/25 Expected Delivery Route/Plan plans repeat c/s Specific Issue/Plans Covid status: [] Flu vaccine: [] Tdap vaccine: [] Rhogam: [] LARC form signed: [] Problem list reviewed and updated with the most current plan of care details and appropriate ordersplaced. Relevant counseling for the gestational age provided. Continue routine care and follow up unless otherwise noted in visit notes/problem list details Initial Weight: Not Recorded Date -?-?-?-?-?-?-?-?-?-?-?-?- EGA Weight BP Urine Prot -?-?-?-?-?-?-?-?-?-?-?-?- Glucose FHR FuHt Pres Dilation -?-?-?-?-?-?-?-?-?-?-?-?- Effaced St Visit Note 10/13/24 -?-?-?-?-?-?-?-?-?-?-?-?- 9w 2d 163 lb 2 oz 122/74 -?-?-?-?-?-?-?-?-?-?-?-?- 175 -?-?-?-?-?-?-?-?-?-?-?-?- KW- CRL cons wit h dates. Accepts NIPT-currently on ATB for UTI. will get culture in 4 weeks. would like to RTO in 2 weeks for FHT due to hx SAB. Menstrual History Last Menstrual Period: 08/12/24 Reported LMP: definite Normal amount/duration: Yes Frequency in days: 28 On hormonal BC at conception: No hCG+: 09/06/24 Antepartum Record Genetic Screening: Congenital Heart Defect: Partner (brother transpostion of the great vessels), Neural Tube Defect: Other, Hemoglobinopathy Or Carrier: Other, Cystic Fibrosis: Other, Chromosome Abnormality: Other, Venancio-Sachs: Other, Hemophilia: Other, Intellectual Disability/Autism: Patient (1/2 Brothers son Autistic), Recurrent Loss/Stillbirth: Patient (3 miscarriages), Other Structural Defect: Other, Other Genetic Disease: Other and Maternal Metabolic Disorder: Other Infection History: Live with someone with TB or Exposed to TB: No, Patient or Partner has history of Genital Herpes: No, Rash or Viral illness since last mentrual period: No, Prior GBS-Infected child: Yes (First +), History of STD: No, HIV Infection: No, History of Hepatitis: No, Recent travel outside of [place]: No, Concern for hepatitis exposure: No, Varicella immune: Yes (immune- virus) and Covid Vaccinated: No Medical History Medical History: Positive: Diabetes (GDM last viable ), Kidney disease/UTI (frequent UTI when with last viable - ATB therapy for whole ), Psychiatric (anxiety), Thyroid dysfunction (hypothyroidism), Seasonal allergies (Spring), Drug/latex allergies/reactions (nitrofurantoin), [facility] Nurse surgery (D&C 04/29) and Operations/hospitalizations and Negative: Hypertension, Heart disease, Auto-immune disorder, Neurologic/epilepsy, Depression/ depression, Hepatitis/liver disease, Varicosities/phlebitis, Trauma/domestic violence, History of blood transfusions, D (Rh) Sensitized, Pulmonary (e.g.,TB,Asthma), Breast, Anesthetic complications, History of abnormalpap, Uterine anomaly/gloria, Infertility, Anti- retroviral treatment and Relevant family history ACOG First Trimester First Trimester: Desire for , Alcohol, Tobacco Cessation, Illicit/Recreational Drug/Substance Use, Intimate Partner Violence, Barriers to care, Unstable Housing, Communication Barriers, Environmental/Work Hazards, Anticipated Course of Care, Nurtrition and weight gain, Toxoplasmosis Precations, Use of Any medications, Sexual activity, Exercise, Dental Care, Sauna/Hot tub use, Seat Belt use, Childbirth classes/Hospital facilities, Travel, Indications for Ultrasound and Screening for Aneuploidy; Discussed Coding Level of Care Code OB Routine Diagnoses Hx of section Z98.891 Advanced maternal age (AMA) in Supervision of high-risk O09.90 9 weeks gestation of Z3A.09 Weeks of gestation: 9 weeks Lupus anticoagulant positive R76.0 History of miscarriage Z87.59 Hypothyroidism E03.9 Anxiety F41.9 UTI (urinary tract infection) during O23.40 Assessment and Plan Assessment and Plan (1) Hx of section: Status: Acute Comment: x3, plans c section (2) Advanced maternal age (AMA) in : Status: Acute (3) Supervision of high-risk : Status: Acute Comment: , MARGUERITE 05/16/25, PC Raffy Sarkar Lieda, Stephen (4) : Status: Acute Qualifiers: Weeks of gestation: 9 weeks Qualified Code(s): Z3A.09 - 9 weeks gestation of Comment: elects NIPT with gender (5) Lupus anticoagulant positive: Status: Acute Comment: repeat antibody testing ordered, normal range in July (6) History of miscarriage: Status: Acute Comment: x3 (7) Hypothyroidism: Status: Acute Comment: needs TSH qtrimester- currently increased Levothyroxine from 137 to 150mcg. rpt in one month from 04/14 visit. order in. pt aware. (8) Anxiety: Status: Acute Comment: Zoloft adequate/stable (9) UTI (urinary tract infection) during : Status: Acute Comment: at NOB. needs repeat culture in November Orders: Orders CBC W/Diff, Automated 10/03/24 O09.90 - Supervision of high risk , unspecified, unspecified trimester, R76.0 - Raised antibody titer Type & Screen 10/03/24 O09.90 - Supervision of high risk , unspecified, unspecified trimester, R76.0 - Raised antibody titer Rubella IgG 10/03/24 O09.90 - Supervision of high risk , unspecified, unspecified trimester, R76.0 - Raised antibody titer Hepatitis C Antibody 10/03/24 O09.90 - Supervision of high risk , unspecified, unspecifiedtrimester, R76.0 - Raised antibody titer Hepatitis B Surface Antigen 10/03/24 O09.90 - Supervision of high risk , unspecified, unspecified trimester, R76.0 - Raised antibody titer Culture, Urine 10/03/24 O09.90 - Supervision of high risk , unspecified, unspecified trimester, R76.0 - Raised antibody titer Syphilis Antibodies 10/03/24 O09.90 - Supervision of high risk , unspecified, unspecified trimester, R76.0 - Raised antibody titer Chlamydia/GC LYLY aptima 10/03/24 O09.90 - Supervision of high risk , unspecified, unspecified trimester, R76.0 - Raised antibody titer HIV 10/03/24 O09.90 - Supervision of high risk , unspecified, unspecified trimester, R76.0- Raised antibody titer Thyroid Stim Hormone (TSH) 10/03/24 E03.9 - Hypothyroidism, unspecified, O09.90 - Supervision of high risk , unspecified, unspecified trimester T4 Free Direct 10/03/24 E03.9 - Hypothyroidism, unspecified, O09.90 - Supervision of high risk , unspecified, unspecified trimester [facility] Misc. 10/03/24 E03.9 - Hypothyroidism, unspecified, O09.90 - Supervision of high risk , unspecified, unspecified trimester BLAS 10/03/24 O09.90 - Supervision of high risk , unspecified, unspecified trimester, R76.0 - Raised antibody titer 10/13/24 0900 s ALVINO> Date _ Margo San CNM Cosigner Signature: Date (if applicable) CC: ~ [facility]06-05-2025 NoteHNO ID: [id number] Author: GUALBERTO HOPKINS APRN.[facility] Service: ? Author Type: Nurse Practitioner Type: Progress Notes Filed: 10/09/2024 11:04 Note Text: [facility] Subjective Karri Villavicencio is a 34 year old female. Patient presents with: Urinary Problem: Burning, frequency, lower back pain, dysuria x 3 days HPI Urinary Tract Infections: - Dysuria x3 days. - Chronic history of UTIs, particularly during . - OB appointment scheduled for Sunday. : - Currently 8 weeks . - 7, Para 3. - Has two daughters and one son. Review of Systems Constitutional: Negative for fatigue and fever. Gastrointestinal: Negative for abdominal pain and vomiting. Genitourinary: Positive for dysuria, frequency and urgency. Negative for pelvic pain, vaginal bleeding, vaginal discharge and vaginal pain. Objective BP 107/60 Pulse 69 Temp 36.9 ?C (98.5 ?F) Resp 18 Wt 73 kg (160 lb 15 oz) LMP 05/24/2023 (Exact Date) SpO2 100% BMI 28.06 kg/m? PAST MEDICAL HISTORY Diagnosis Date Acquired hypothyroidism 12/17/2014 Hoshimoto's Anxiety 04/20/2014 Well adult exam 04/20/2014 Last done: 01/02/2019 PAST SURGICAL HISTORY Procedure Laterality Date SECTION HX N/A 2016 and 2021 PAST SURGICAL HISTORY OF 2005 laser surgery on bilater feet to remove warts ALLERGIES Macrobid [Nitrofurantoin Monohyd/M-Cryst] MEDICATIONS vit/iron fum/folic ac ( 1 + 1 ORAL) Take 1 tablet by mouth once daily. sertraline (ZOLOFT) 25 mg tablet Take 1 tablet by mouth once daily. levothyroxine (LEVOXYL) 150 mcg tablet Take 1 tablet by mouth once daily. Jadon-Sat and two on Sunday. Take on empty stomach. For Thyroid. cephALEXin (KEFLEX) 500 mg capsule Take 1 capsule by mouth two times a day for 7 days. FAMILY HISTORY Adopted: Yes Problem Relation Age of Onset Seizures Mother epiletic Diabetes Father Hypertension Father No Known Problems Sister No Known Problems Sister No Known Problems Brother No Known Problems Brother No Known Problems Brother No Known Problems Brother Diabetes Paternal Grandmother Hypertension Paternal Grandmother Diabetes Paternal Grandfather Coronary Artery Disease Paternal Grandfather over 50 Hypertension Paternal Grandfather No Known Problems Daughter No Known Problems Son Thyroid Paternal Uncle Social History Tobacco Use Smoking status: Never Smokeless tobacco: Never Vaping Use Vaping status: Never Used Substance Use Topics Alcohol use: Yes Comment: occasional wine Drug use: No Physical Exam Vitals and nursing note reviewed. Constitutional: Appearance: Normal appearance. Cardiovascular: Rate and Rhythm: Normal rate and regular rhythm. Pulses: Normal pulses. Heart sounds: Normal heart sounds. Pulmonary: Effort: Pulmonary effort is normal. Breath sounds: Normal breath sounds. Abdominal: General: Bowel sounds are normal. Tenderness: There is no abdominal tenderness. There is no right CVA tenderness or left CVA tenderness. Neurological: Mental Status: She is alert. {1. Burning with urination (R30.0) 2. Acute cystitis without hematuria (N30.00) - Dysuria and lower back pain present; history of recurrent UTIs, particularly during . - Currently 8 weeks ; last antibiotic treatment was in 2021 with Keflex during previous . - Urine culture ordered to identify causative organism; results expected by Sunday. - Initiated Keflex; prescription sent electronically to [facility]. - Follow-up with OB scheduled for Sunday. and Recording using Re-vinyl software for draft documentation of the visit was discussed with the patient/authorized car sales representative; all questions welcomed and answered. Patient/authorized car sales representative agreed to proceed History and Record Review External record(s) reviewed: prior outpatient record. Findings from review of outpatient records: Previous medical history Differential Diagnoses - Dysuria is more likely for the following reason(s): suggested by HANDP - cystitis is more likely for the following reason(s): suggested by HANDP - Pylonephritis is less likely for the following reason(s): HANDP not suggestive - acute abdomen is less likely for the following reason(s): HANDP not suggestive Disposition The patient was discharged. MDM patient well-appearing nontoxic in no acute distress presents with urinary tract infection. Positive for nitrates with symptoms and is 8 weeks . No concerns of ectopic no abdominal pain, pelvic pain. No concern of pyelonephritis patient started on Keflex and to follow-up with [facility] DIRECT SUPPORT PROFESSIONAL on Sunday. ER if abdominal pain patient verbalized understanding agreement with plan discharged home.[facility]06-05-2025 History of Present illness Narrative* Gualberto Hopkins APRN.[facility] - 10/09/2024 10:36 AM EDT [facility] Subjective Karri Villavicencio is a 34 year old female. Patient presents with: Urinary Problem: Burning, frequency, lower back pain, dysuria x 3 days HPI Urinary Tract Infections: - Dysuria x3 days. - Chronic history of UTIs, particularly during . - OB appointment scheduled for Sunday. : - Currently 8 weeks . - 7, Para 3. - Has two daughters and one son. Review of Systems Constitutional: Negative for fatigue and fever. Gastrointestinal: Negative for abdominal pain and vomiting. Genitourinary: Positive for dysuria, frequency and urgency. Negative for pelvic pain, vaginal bleeding, vaginal discharge and vaginal pain. Objective BP 107/60 Pulse 69 Temp 36.9 C (98.5 F) Resp 18 Wt 73 kg (160 lb 15 oz) LMP 05/24/2023 (Exact Date) SpO2 100% BMI 28.06 kg/m PAST MEDICAL HISTORY Diagnosis Date Acquired hypothyroidism 12/17/2014 Hoshimoto's Anxiety 04/20/2014 Well adult exam 04/20/2014 Last done: 01/02/2019 PAST SURGICAL HISTORY Procedure Laterality Date SECTION HX N/A 2016 and 2021 PAST SURGICAL HISTORY OF 2005 laser surgery on bilater feet to remove warts ALLERGIES Macrobid [Nitrofurantoin Monohyd/M-Cryst] MEDICATIONS vit/iron fum/folic ac ( 1 + 1 ORAL) Take 1 tablet by mouth once daily. sertraline (ZOLOFT) 25 mg tablet Take 1 tablet by mouth once daily. levothyroxine (LEVOXYL) 150 mcg tablet Take 1 tablet by mouth once daily. Jadon- Sat and two on Sunday. Take on empty stomach. For Thyroid. cephALEXin (KEFLEX) 500 mg capsule Take 1 capsule by mouth two times a day for 7 days. FAMILY HISTORY Adopted: Yes Problem Relation Age of Onset Seizures Mother epiletic Diabetes Father Hypertension Father No Known Problems Sister No Known Problems Sister No Known Problems Brother No Known Problems Brother No Known Problems Brother No Known Problems Brother Diabetes Paternal Grandmother Hypertension Paternal Grandmother Diabetes Paternal Grandfather Coronary Artery Disease Paternal Grandfather over 50 Hypertension Paternal Grandfather No Known Problems Daughter No Known Problems Son Thyroid Paternal Uncle Social History Tobacco Use Smoking status: Never Smokeless tobacco: Never Vaping Use Vaping status: Never Used Substance Use Topics Alcohol use: Yes Comment: occasional wine Drug use: No Physical Exam Vitals and nursing note reviewed. Constitutional: Appearance: Normal appearance. Cardiovascular: Rate and Rhythm: Normal rate and regular rhythm. Pulses: Normal pulses. Heart sounds: Normal heart sounds. Pulmonary: Effort: Pulmonary effort is normal. Breath sounds: Normal breath sounds. Abdominal: General: Bowel sounds are normal. Tenderness: There is no abdominal tenderness. There is no right CVA tenderness or left CVA tenderness. Neurological: Mental Status: She is alert. {1. Burning with urination (R30.0) 2. Acute cystitis without hematuria (N30.00) - Dysuria and lower back pain present; history of recurrent UTIs, particularly during . - Currently 8 weeks ; last antibiotic treatment was in 2021 with Keflex during previous . - Urine culture ordered to identify causative organism; results expected by Sunday. - Initiated Keflex; prescription sent electronically to [facility]. - Follow-up with OB scheduled for Sunday. and Recording using Re-vinyl software for draft documentation of the visit was discussed with thepatient/authorized car sales representative; all questions welcomed and answered. Patient/authorized car sales representative agreed to proceed History and Record Review External record(s) reviewed: prior outpatient record. Findings from review of outpatient records: Previous medical history Differential Diagnoses - Dysuria is more likely for the following reason(s): suggested by H&P - cystitis is more likely for the following reason(s): suggested by H&P - Pylonephritis is less likely for the following reason(s): H&P not suggestive - acute abdomen is less likely for the following reason(s): H&P not suggestive Disposition The patient was discharged. MDM patient well-appearing nontoxic in no acute distress presents with urinary tract infection. Positive for nitrates with symptoms and is 8 weeks . No concerns of ectopic no abdominal pain, pelvic pain. No concern of pyelonephritis patient started on Keflex and to follow-up with [facility] SUPPORT PROFESSIONAL on Sunday. ER if abdominal pain patient verbalized understanding agreement with plan discharged home. [facility] NoteHNO ID: [id number] Author: DOMI RUBI, RN Service: ? Author Type: Registered Nurse Type: Progress Notes Filed: 09/22/2024 13:08 Note Text: Patient returned call and given provider's message below and patient verbalized understanding. Sher Rubi [facility]05-19-2025 Telephone encounter Note* Telephone Encounter - Olivia Patterson MA - 09/22/2024 1:01 PM EDT Unable to reach pt by phone- pt active on NuoDBt- message sent Olivia Patterson MA [facility]05-19-2025 Miscellaneous Notes* Telephone Encounter - Olivia Patterson MA - 09/22/2024 1:01 PM EDT Unable to reach pt by phone- pt active on NuoDBt- message sent Olivia Patterson MA * Telephone Encounter - Olivia Patterson MA - 09/19/2024 12:55 PM EDT Left message for patient to return call to office Olivia Patterson MA * Telephone Encounter - Andreia Viramontes APRN.CNP - 09/19/2024 10:57 AM EDT Please let patient know their labs are normal.Continue current dose of levothyroxine. [facility] Telephone encounter Note * Telephone Encounter - Olivia Patterson MA - 09/19/2024 12:55 PM EDT Left message for patient to return call to office Olivia Patterson MA [facility]05-16-2025 Telephone encounter Note* Telephone Encounter - Andreia Viramontes APRN.SHEILA - 09/19/2024 10:57 AM EDT Please let patient know their labs are normal.Continue current dose of levothyroxine. [facility] Work Phone: 1(133) 767-649505-15-2025 Telephone encounter Note* Telephone Encounter - Jossie Cordon RN - 09/18/2024 10:58 AM EDT Pt must have called in as her yearly appt is set up for 01/27/25 [facility]05-15-2025 Miscellaneous Notes* Telephone Encounter - Jossie Cordon RN - 09/18/2024 10:58 AM EDT Pt must have called in as her yearly appt is set up for 01/27/25 * Telephone Encounter - Jossie Cordon RN - 09/17/2024 9:03 AM EDT Pt has not read her Nostot msg regarding appt. Attempted to call pt with no answer. Left detailed msg on pt's personal voicemail of need to set up appt for 01/29/25 or after. Left phone number to call and schedule. * Telephone Encounter - Cain Pretty MD - 08/25/2024 8:32 PM EDT Please help patient set up her complete PE for around 01/29/2025. The following approved medication requests have been transmitted electronically. Requested Prescriptions Signed Prescriptions Disp Refills sertraline (ZOLOFT) 25 mg tablet 90 tablet 1 Sig: Take 1 tablet by mouth once daily. Authorizing Provider: CAIN PRETTY levothyroxine (LEVOXYL) 150 mcg tablet 36 tablet 5 Sig: Take 1 tablet by mouth once daily. Jadon-Sat and two on Sunday. Take on empty stomach. For Thyroid. Authorizing Provider: CAIN PRETTY MD * Telephone Encounter - Grady Reyes LPN - 08/25/2024 7:08 PM EDT Prescription Refill Information The patient has been identified by name and date of : Yes Caregiver verified no other encounters exist for this prescription request: Yes Caregiver confirmed with patient/requestor that no other refills are due, in the near future, with this provider at this time: Yes The last office visit in the department: 01/30/24 Does the patient have a future office visit with this provider/department: No Requested Prescriptions Pending Prescriptions Disp Refills sertraline (ZOLOFT) 25 mg tablet 90 tablet 1 Sig: Take 1 tablet by mouth once daily. levothyroxine (LEVOXYL) 150 mcg tablet 36 tablet 5 Sig: Take 1 tablet by mouth once daily. Jadon-Sat and two on Sunday. Take on empty stomach. For Thyroid. Rx on 05/20/24 is a Med Update. Grady Reyes LPN August 25, 2024 7:08 PM documented in this encounterM[facility]05-[facility]25 Telephone encounter Note * Telephone Encounter - Jossie Cordon RN - 09/17/2024 9:03 AM EDT Pt has not read her [employer] msg regarding appt. Attempted to call pt with no answer. Left detailed msg on pt's personal voicemail of need to set up appt for 01/29/25 or after. Left phone number to call and schedule. [facility]04-21-2025 Telephone encounter Note* Telephone Encounter - Cain Pretty MD - 08/25/2024 8:32 PM EDT Please help patient set up her complete PE for around 01/29/2025. The following approved medication requests have been transmitted electronically. Requested Prescriptions Signed Prescriptions Disp Refills sertraline (ZOLOFT) 25 mg tablet 90 tablet 1 Sig: Take 1 tablet by mouth once daily. Authorizing Provider: CAIN PRETTY levothyroxine (LEVOXYL) 150 mcg tablet 36 tablet 5 Sig: Take 1 tablet by mouth once daily. Jadon-Sat and two on Sunday. Take on empty stomach. For Thyroid. Authorizing Provider: CAIN PRETTY MD [facility]04-21-2025 Telephone encounter Note* Telephone Encounter - Grady Reyes LPN - 08/25/2024 7:08 PM EDT Prescription Refill Information The patient has been identified by name and date of : Yes Caregiver verified no other encounters exist for this prescription request: Yes Caregiver confirmed with patient/requestor that no other refills are due, in the near future, with this provider at this time: Yes The last office visit in the department: 01/30/24 Does the patient have a future office visit with this provider/department: No Requested Prescriptions Pending Prescriptions Disp Refills sertraline (ZOLOFT) 25 mg tablet 90 tablet 1 Sig: Take 1 tablet by mouth once daily. levothyroxine (LEVOXYL) 150 mcg tablet 36 tablet 5 Sig: Take 1 tablet by mouth once daily. Jadon-Sat and two on Sunday. Take on empty stomach. For Thyroid. Rx on 05/20/24 is a Med Update. Grady Reyes LPN August 25, 2024 7:08 PM [facility]03-26-2025 NoteHNO ID: [id number] Author: CARMELO AGUILAR MA Service: ? Author Type: Reservation Sales Agent Type: Progress Notes Filed: 07/30/2024 15:51 Note Text: Scan on 07/18/2024 7:36 PM by ProviderHector PA-C: Miscellaneous Lab Carmelo Aguilar [facility]03[facility]26[facility] History of Present illness Narrative* Carmelo Aguilar MA - 07/30/2024 3:50 PM EDT Scan on 07/18/2024 7:36 PM by ProviderHector PA-C: Miscellaneous Lab Carmelo Aguilar MA' documented in this encounterMidd[facility]own [facility]03-[facility]-2025 Telephone encounter Note * Telephone Encounter - Cain Pretty MD - 07/22/2024 4:38 PM EDT Noted. [facility]03-18-2025 Miscellaneous Notes* Telephone Encounter - Cain Pretty MD - 07/22/2024 4:38 PM EDT Noted. * Telephone Encounter - Mary Nelson MA - 07/21/2024 5:08 PM EDT Pt notified. She would like to stay where she is on the current dosage. She will get repeat labs asrequested. Mary Nelson MA * Telephone Encounter - Cain Pretty MD - 07/21/2024 4:30 PM EDT Let patient know her TSH is at the low end of normal. We can keep her where she is at or change herto 150 mcg once a day Mon-Sat and 1.5 on Sundays. I would advise we get a repeat lab in [address] documented in this encounterMidd[facility]03-17-2025 Telephone encounter Note * Telephone Encounter - Mary Nelson MA - 07/21/2024 5:08 PM EDT Pt notified. She would like to stay where she is on the current dosage. She will get repeat labs asrequested. Mary Nelson MA [facility]03-17-2025 Telephone encounter Note* Telephone Encounter - Cain Pretty MD - 07/21/2024 4:30 PM EDT Let patient know her TSH is at the low end of normal. We can keep her where she is at or change herto 150 mcg once a day Mon-Sat and 1.5 on Sundays. I would advise we get a repeat lab in [address] [facility]01-15-2025 Telephone encounter Note* Telephone Encounter - Komal Sotelo OCCA - 05/21/2024 8:35 AM EST TC to patient who verbalized understanding of providers message below. DESTINI Strickladn [facility]01-15-2025 Miscellaneous Notes* Telephone Encounter - Komal Sotelo OCCA - 05/21/2024 8:35 AM EST TC to patient who verbalized understanding of providers message below. DESTINI Strickland * Telephone Encounter - Cain Pretty MD - 05/20/2024 9:25 PM EST Let patient know her thyroid lab is showing she is getting too much replacement know. Have her go back to taking the 150 mcg table one a day Mon-sat and two on Sunday. Order placed to have TSH rechecked in 2 months. documented in this encounterMidd[facility]own [facility]01-14-2025 Telephone encounter Note * Telephone Encounter - Cain Pretty MD - 05/20/2024 9:25 PM EST Let patient know her thyroid lab is showing she is getting too much replacement know. Have her go back to taking the 150 mcg table one a day Mon-sat and two on Sunday. Order placed to have TSH rechecked in 2 months. [facility]12-20-2024 NoteHNO ID: [id number] Author: ALBERTO WEBSTER LPN Service: ? Author Type: LICENSED NURSE Type: Progress Notes Filed: 04/25/2024 06:58 Note Text: Scan on 04/23/2024 6:35 PM by ProviderHector PA-C: Miscellaneous Lab [facility]12-20-2024 History of Present illness Narrative* Alberto Webster LPN - 04/25/2024 6:58 AM EST Scan on 04/23/2024 6:35 PM by Provider, External, PAMatthewC: Miscellaneous Lab documented in this encounterMiddletown Hospital12-17-2024 NoteHNO ID: [id number] Author: ALBERTO WEBSTER LPN Service: ? Author Type: LICENSED NURSE Type: Progress Notes Filed: 04/22/2024 12:39 Note Text: Scan on 04/22/2024 11:19 AM by Hector Sauceda PA-C: [facility]12-17-[facility] History of Present illness Narrative* Alberto Webster LPN - 04/22/2024 12:39 PM EST Scan on 04/22/2024 11:19 AM by Hector Sauceda PA-C: RESIDENTIAL DIRECT SUPPORT PROFESSIONAL documented in this encounterMiddletown Hospital12-17-2024 NoteHNO ID: [id number] Author: ALBERTO WEBSTER LPN Service: ? Author Type: LICENSED NURSE Type: Progress Notes Filed: 04/22/2024 08:21 Note Text: Scan on 04/21/2024 3:10 PM by Hector Sauceda PA-C: Discharge Summary Scan on 04/21/2024 2:43 PM by Hector Sauceda PA-C Scan on 04/21/2024 1:36 PM by Hector Sauceda PA-C: Chemistry Scan on 04/21/2024 1:13 PM by Hector Sauceda PA-C: [facility]ology[facility]12-16-2024 [facility] Medical Records Department [address] [place] [id number] History Physical Exam 04/21/24 1416 MR#: [id number] Acct: [id number] Name: KARRI MARTIN Sylvester Rep #: [id number] : 1990 34 From: Smiley [place] MD PCP: Dr. Cain Pretty MD Status:[facility] Location: [place] [address] History and Physical Date of Admission: 04/21/24 Intake Vital Signs 04/20/2419:57 04/21/2408:07 04/21/2408:09 Height 5 ft 4 in 5 ft 4 in 5 ft 4 in Weight: 163 lb 6 oz BMI 28.0 BP 117/77 Intake Visit Reasons: RESCAN Rn Chronic Required: No Is patient in pain?: No Allergies nitrofurantoin Allergy (Mild, Verified 04/21/24 08:08) Hives Medications ???Medication ???Instructions ???Recorded ???Confirmed ???Type sertraline 25 mg tablet 25 mg PO DAILY anxiety #30 tabs 10/18/22 04/21/24 Rx PNV 178-FA 180 mcg-om3 35 mg-dha tab PO DAILY 07/13/23 04/21/24 History 25 mg-epa 5 mg-fish oil chew tablet levothyroxine 150 mcg tablet 150 mcg PO .COMPLEX hypothyorid 03/21/24 04/21/24 History ondansetron 4 mg disintegrating 4 mg PO Q8H PRN nausea and 03/31/24 04/21/24 Rx tablet vomiting #60 tabs Last Menstrual Period: 02/02/24 Zika: Zika virus screening: Negative : No PFSH PFSH Medical History History of oligohydramnios in prior , currently Previous gestational diabetes mellitus, antepartum Spotting in early Hx of recurrent urinary tract infection delivery delivered History of pre-term labor History of premature rupture of membranes (PPROM) History of prior with IUGR Thyroid disorder Anemia affecting IUGR (intrauterine growth restriction) in prior , Surgical History Campbell teeth extracted S/P Family History FatherDiabetesGrandfather DiabetesMother Seizures Social History adopted: Yes (13yrs old) household members: spouse and children housing: house number of children: 3 current occupational status: employed 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[employer] current 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/hazards: No pets and animals: Yes ( taking care of litter box) pets and animals: cat(s), dog(s) and other details: rabbit history of recent travel: No sexually active: Yes Smoking Status: Never smoker alcohol intake: current alcohol intake frequency: holidays/special occasions only details: Not while substance use type: does not use well-balanced diet: daily or most days caffeine: Yes Type: coffee Number of servings: 1 and tea Number of servings: 1 eating out: rarely or never during the past year weight has: increased > 10 lbs what type of physical activity do you participate in: bicycling, weight training and additional details: yuni frequency: 3-4 times per week duration: 15-30 minutes/day fatou/christianity: Quaker seatbelt use: always do you feel safe at home: Yes additional social history: : Stephen - Management History 6 Elective abortions Hx Para 3 Spontaneous abortions 2 Hx # Term Pregnancies Ectopic pregnancies Hx # Pregnancies Multiple births # of living children 3 Past Pregnancies Del. Date Name GA/Weeks Outcome Route Bth Weight Gen Labor Lgth Anesthesia Del Locatn Provider FOB 04/03/17 Antonina 40 live - full term 7lbs 12oz Female 3 da ys epidural [facility] Dr. Myranda Mitchell 01/10/19 Raffy 36 live - 5lbs 12oz Male 0 spin al [facility] ??? Stephen 11/19/20 ??? 5 spontaneous ? 08/22/21 Lied[place] 39 live - full term 7lbs 3oz Femal e ??? spinal [facility] 07/16/23 ??? 5 spontaneous ? Delivery Date: 04/03/17 Last Updated by: Kim Olsen STAT c/s nuchal cord; distress Delivery Date: 01/10/19 Last Updated by: Kim Olsen PPROM, STAT C/S; IUGR; Oligo Delivery Date: 08/22/21 Last Updated by: Karina Chávez TCS HPI RESCAN Details: KARRI VILLAVICENCIO is a 34 year old who presents for early miscarriage, measuring 9w1d no fht and no color doppler, having bleeding since , seen in ER and no FHT seen either. no fevers some crmaping OB Visit MARGUERITE Calculator ??? Estimated Delivery Date Method Current WG Current Estimate 11/08/24 LMP (Certain) 11w 2d Other Estimates 11/10/24 Ultrasound #1 11w 0d Expected Delivery Route/Plan Labor Preferences- CB/BF cla (more content not included)...[facility]12-16-2024 NoteHNO ID: [id number] Author: ALBERTO WEBSTER LPN Service: ? Author Type: LICENSED NURSE Type: Progress Notes Filed: 04/21/2024 07:03 Note Text: Scan on 04/20/2024 11:58 PM by Hector Sauceda PA-C: Consultation - [facility] MedicineT[facility]12-16-2024 History of Present illness Narrative* Alberto Webster LPN - 04/21/2024 7:03 AM EST Scan on 04/20/2024 11:58 PM by Hector Sauceda PA-C: Consultation - Emergency Medicine documented in this encounterMiddletown Hospital11-29-2024 NoteHNO ID: [id number] Author: CARMELO AGUILAR MA Service: ? Author Type: Reservation Sales Agent Type: Progress Notes Filed: 04/04/2024 15:29 Note Text: Scan on 04/02/2024 9:39 AM by Hector Sauceda PA-C: Miscellaneous Lab Scan on 04/02/2024 9:35 PM by Hector Sauceda PA-C: [facility]29[facility] History of Present illness Narrative* Carmelo Aguilar MA - 04/04/2024 3:29 PM EST Scan on 04/02/2024 9:39 AM by Hector Sauceda PA-C: Miscellaneous Lab Scan on 04/02/2024 9:35 PM by Hector Sauceda PA-C: Winston Aguilar MA documented in this encounterMiddletown Hospital11-25-2024 Evaluation note* Diagnosis Onset Date Resolution Status Admit Date Anxiety acute March 31, 2024 2:47pm History of miscarriage acute No vem2023 2:47pm Hypothyroidism acute March 082023 2:47pm History of oligohydramnios i n prior , currently resolved March 31, 024 2:47pm History of pre-term labor resolved March 31, 2024 2:47pm History of premature rupture of membranes (PPROM) resolved Mar 2:47pm History of prior w ith IUGR resolved March 31 024 2:47pm AMA (advanced maternal age) multigravida 35+ inactive March 31, 2024 2:47pm H/O section inactive 2023 2:47pm H/O gestational diabetes in prior , currently inactive March 31, 024 2:47pm inactive March 31, 2024 2:47pm Supervision of high-risk inactive March 31 024 2:47pm Anxiety acute April 21, 2024 7:58am [facility] of [facility] 7:58am Hypothyroidism acute April 062023 7:58am UTI in acute April 21, 2024 7:58am History of oligohydramnios i n prior , currently resolved April 21 7:58am History of pre-term labor resolved April 21, 2024 7:58am History of premature rupture of membranes (PPROM) resolved Apr 7:58am History of prior w ith IUGR resolved April 21 7:58am AMA (advanced maternal age) multigravida 35+ inactive April 21, 2024 7:58am H/O section inactive Counts Include [facility] 2023 7:58am H/O gestational diabetes in prior , currently inactive April 21 7:58am Missed inactive April 21, 2024 7:58am inactive April 21, 2024 7:58am Supervision of high-risk inactive April 21 7:58am Missed inactive April 21, 2024 11:29am History of miscarriage acute [facility] 2024 11:06am Hypothyroidism acute May 192024 11:06am Lupus anticoagulant positive acute May 19, 2024 11:06am [facility] Work Phone: [phone] Telephone encounter Note* Telephone Encounter - Sylvester Henao RN - 03/21/2024 4:16 PM EST Left detailed vm on identified vm, with provider's message below. [facility]11-15-2024 Miscellaneous Notes* Telephone Encounter - Sylvester Henao RN - 03/21/2024 4:16 PM EST Left detailed vm on identified vm, with provider's message below. * Telephone Encounter - Cain Pretty MD - 03/21/2024 2:43 PM EST Let patient know her thyroid lab is good. Lets recheck it in 6 weeks with her being . Orderplaced. documented in this encounterMiddletown Hospital11-15-2024 Telephone encounter Note * Telephone Encounter - Cain Pretty MD - 03/21/2024 2:43 PM EST Let patient know her thyroid lab is good. Lets recheck it in 6 weeks with her being . Orderplaced. [facility]09-25-2024 Instructions* Patient Instructions* Cain Pretty MD - 01/30/2024 1:31 PM EDT Lebvothyroxine Sig: Take 1 tablet by mouth once daily. -Sun, 1.5 on Sun and two on Sunday. Take on empty stomach. For Thyroid. Please get thyroid lab on or after 03/31/2024. Please get labs done on or after 01/05/2025 prior to your next visit. documented in this encounterMiddletown Hospital09-25-2024 History of Present illness Narrative* Cain Pretty MD - 01/30/2024 1:00 PM EDT Chief Complaint Patient presents with: Physical HPI Karri Villavicencio is a 33 year old female who presents here today for Physical. Patient with hx of anxiety, hypothyroid, and those as below. Patient has been doing well. No new issues. Sees [facility]. Past medical history, appointments, medications, allergies reviewed. [...] Take 1 tablet by mouth once daily. Jadon- Sat and two on Sunday. Take on empty stomach. For Thyroid. sertraline (ZOLOFT) 25 mg tablet Take 1 tablet by mouth once daily. No current facility-administered medications on file prior to visit. Social History Social History Tobacco Use Smoking status: Never Smokeless tobacco: Never Vaping Use Vaping status: Never Used Substance Use Topics Alcohol use: Yes Comment: occasional wine Drug use: No Review of Symptoms REVIEW OF SYSTEMS GENERAL: No weight loss, malaise or fevers HEENT: has frequent headaches from her neck area, No changes in hearing or vision, no nose bleeds or other nasal problems. Some congestion. Some rhinorrhea today NECK: Negative for lumps, goiter, pain and significant neck swelling RESPIRATORY: Negative for hemoptysis, wheezing, COPD, dyspnea or shortness of breath. Has a dry cough CARDIOVASCULAR: Negative for chest pain, leg swelling, hypertension, CHF or palpitations GI: No nausea, vomiting, or diarrhea and No heartburn or reflux symptoms. Some lower abdominal cramping and plans to see OB. : No history of dysuria, frequency or blood MUSCULOSKELETAL: Negative for joint pain or swelling, back pain or muscle pain SKIN: Negative for lesions, rash, and itching PSYCH: Negative for sleep disturbance, mood disorder and recent psychosocial stressors. Anxiety is much better on the sertraline. HEMATOLOGY/LYMPHOLOGY: Negative for prolonged bleeding, bruising easily or swollen nodes ENDOCRINE: Negative for cold or heat intolerance, polyuria, polydipsia and goiter NEURO: No history of syncope, paralysis, seizures or tremors EXAM: BP 118/82 (BP Site: Left Arm, BP Position: Sitting, BP Cuff Size: Regular Adult) Pulse 60 Resp 16 Ht 161.3 cm (5' 3.5") Wt 73.5 kg (162 lb) LMP 05/24/2023 (Exact Date) BMI 28.25 kg/m Last 5 Encounter Wt Readings: Date: Wt: 01/30/2024 73.5 kg (162 lb) 07/14/2023 70.5 kg (155 lb 6.8 oz) 06/29/2023 69.4 kg (153 lb) 05/04/2023 68.9 kg (152 lb) 02/01/2023 68.9 kg (152 lb) General Appearance: Well appearing, alert, in no acute distress, well-hydrated, well nourished.. Skin: Skin color, texture, turgor normal, no suspicious rashes or lesions. Head: Normocephalic, no masses, lesions, tenderness or abnormalities. Eyes: Anicteric sclera. Pupils are equally round and reactive to light. Extraocular movements are intact. . Ears: External ears, TM's normal, canals clear. Nose/Sinuses: Nares normal, septum midline, mucosa normal, no drainage or sinus tenderness. Oropharynx: Lips, mucosa, and tongue normal, teeth and gums normal, oropharynx normal. Neck: Supple, no adenopathy; thyroid symmetric, normal size, no bruits. Lungs: Lungs clear to auscultation. No wheezing, rhonchi, rales.. Heart: RRR without murmur, gallop, or rubs. No ectopy. Abdomen: Normal abdominal exam, Abdomen soft, non-tender. Bowel sounds normal. No masses, organomegaly. Extremities: No deformities, edema, skin discoloration, Good capillary refill. . Musculoskeletal: Muscular strength intact, No joint swelling, deformity, or tenderness. Peripheral Pulses: Normal. Neurologic: Gait normal. Reflexes normal and symmetric. Sensation to light touch and crainal nerves2-12 intact.. Health Maintenance List Depression Screening Never done Cervical Cancer Screening due on 12/16/2023 Covid-19 Vaccine( - season) Never done Influenza Vaccine(1) due on 01/06/2024 Annual PCP Team Chronic Disease Visit due on 06/29/2024 DTaP,Tdap,Td Vaccine(5 - Td or Tdap) due on 06/10/2031 Hepatitis C Screening Completed HPV Vaccine Aged Out HIV Screening Discontinued Data reviewed Latest Ref Rng 01/20/2023 07/20/2023 09/21/2023 01/18/2024 WBC 3.70 - 11.00 k/uL 5.87 6.18 RBC 3.90 - 5.20 m/uL 4.14 4.26 Hemoglobin 11.5 - 15.5 g/dL 12.2 12.7 Hematocrit 36.0 - 46.0 % 38.6 39.4 MCV 80.0 - 100.0 fL 93.2 92.5 MCH 26.0 - 34.0 pg 29.5 29.8 MCHC 30.5 - 36.0 g/dL 31.6 32.2 RDW-CV 11.5 - 15.0 % 13.0 12.8 Platelet Count 150 - 400 k/uL 202 221 MPV 9.0 - 12.7 fL 10.6 10.6 Neut% % 57.3 59.8 Abs Neut (ANC) 1.45 - 7.50 k/uL 3.36 3.70 Lymph% % 33.0 30.6 Abs Lymph 1.00 - 4.00 k/uL 1.94 1.89 Rice% % 6.1 5.7 Abs Rice <0.87 k/uL 0.36 0.35 Eosin% % 3.1 3.2 Abs Eosin <0.46 k/uL 0.18 0.20 Baso% % 0.3 0.5 Abs Baso <0.11 k/uL <0.03 0.03 Immature Gran % % 0.2 0.2 IMMATURE GRANS (ABS) <0.10 k/uL <0.03 <0.03 DTYPE Auto Auto Protein, Total 6.3 - 8.0 g/dL 7.5 7.1 Albumin 3.9 - 4.9 g/dL 4.7 4.6 Calcium 8.5 - 10.2 mg/dL 9.5 9.2 Bilirubin, Total 0.2 - 1.3 mg/dL 0.3 0.3 Alkaline Phosphatase 34 - 123 U/L 74 64 AST 13 - 35 U/L 18 19 ALT 7 - 38 U/L 15 18 Glucose 74 - 99 mg/dL 96 96 BUN 7 - 21 mg/dL 10 9 Creatinine 0.58 - 0.96 mg/dL 0.65 0.63 Sodium 136 - 144 mmol/L 140 138 Potassium 3.7 - 5.1 mmol/L 4.5 4.1 Chloride 98 - 107 mmol/L 105 102 CO2 22 - 30 mmol/L 26 27 Anion Gap 8 - 15 mmol/L 9 9 eGFR >=60 mL/min/1.73m 119 119 Cholesterol, Total <200 mg/dL 144 Triglyceride <150 mg/dL 62 HDL Cholesterol >39 mg/dL 60 Non HDL Cholesterol <130 mg/dL 84 Fasting Time hrs 12 VLDL Cholesterol <30 mg/dL 12 TC:HDL Ratio <5.10 2.40 LDL Cholesterol <100 mg/dL 72 LDL:HDL Ratio <2.54 1.20 Total Cholesterol, Nonfasting <200 mg/dL 139 Triglycerides, Nonfasting <150 mg/dL 70 HDL Cholesterol, Nonfasting >39 mg/dL 65 LDL Cholesterol, Nonfasting <100 mg/dL 60 Non HDL Cholesterol, Nonfasting <130 mg/dL 74 VLDL Cholesterol, Nonfasting <30 mg/dL 14 Total Chol/HDL Ratio, Nonfasting <5.10 mg/dL 2.14 LDL/HDL Ratio, Nonfasting <2.54 mg/dL 0.92 Hemoglobin A1C 4.3 - 5.6 % 5.3 5.2 Estimated Average Glucose mg/dL 105 103 TSH 0.270 - 4.200 mIU/L 4.230 (H) 6.380 (H) 0.658 3.090 Legend: (H) High A/P ASSESSMENT/PLAN: 1. Well adult exam - ICD9: V70.0, ICD10: Z00.00 (primary diagnosis) - Counseled on healthy diet and regular exercise - Discussed need and benefit for weight loss. BMI 28.25 kg/(m^2) - Patient counseled on and acknowledged vaccine benefits/risks/side effects; VIS provided: Influenza - Follow up for annual exam in one year 2. Acquired hypothyroidism - ICD9: 244.9, ICD10: E03.9 - Instructed patient on importance of taking on an empty stomach either first thing in the morning or at bedtime. - Increase Synthroid dose to as below - check TSH in 2 months. 3. Anxiety - ICD9: 300.00, ICD10: F41.9 - stable with current sertraline dose. 4. Encounter for immunization - ICD9: V03.89, ICD10: Z23 - INFLUENZA VACCINE, AGE 6MO-64YR, : TRIVALENT (AFLURIA, FLULAVAL, FLUVIRIN, FLUZONE): given Requested Prescriptions Signed Prescriptions Disp Refills sertraline (ZOLOFT) 25 mg tablet 90 tablet 1 Sig: Take 1 tablet by mouth once daily. levothyroxine (LEVOXYL) 150 mcg tablet 36 tablet 5 Sig: Take 1 tablet by mouth once daily. Jdaon-Fri, 1.5 on Sun and two on Sunday. Take on empty stomach. For Thyroid. F/u in a year or sooner if needed. Cain Pretty MD documented in this encounterM[facility]09-[facility]-2024 Telephone encounter Note * Telephone Encounter - Cain Pretty MD - 01/23/2024 4:25 PM EDT The following approved medication requests have been transmitted electronically. Requested Prescriptions Signed Prescriptions Disp Refills levothyroxine (LEVOXYL) 150 mcg tablet 34 tablet 5 Sig: Take 1 tablet by mouth once daily. Jadon-Sun and two on Sunday. Take on empty stomach. For Thyroid. Authorizing Provider: CAIN PRETTY MD [facility]09-18-2024 Miscellaneous Notes* Telephone Encounter - Cain Pretty MD - 01/23/2024 4:25 PM EDT The following approved medication requests have been transmitted electronically. Requested Prescriptions Signed Prescriptions Disp Refills levothyroxine (LEVOXYL) 150 mcg tablet 34 tablet 5 Sig: Take 1 tablet by mouth once daily. Jadon-Sat and two on Sunday. Take on empty stomach. For Thyroid. Authorizing Provider: CAIN PRETTY MD * Telephone Encounter - Jossie Hayden LPN - 01/23/2024 11:34 AM EDT Prescription Refill Information The patient has been identified by name and date of : Yes Caregiver verified no other encounters exist for this prescription request: Yes Caregiver confirmed with patient/requestor that no other refills are due, in the near future, with this provider at this time: Yes The last office visit in the department: 06/29/23 Does the patient have a future office visit with this provider/department: Yes 01/30/24 Requested Prescriptions Pending Prescriptions Disp Refills levothyroxine (LEVOXYL) 150 mcg tablet 34 tablet 5 Sig: Take 1 tablet by mouth once daily. Jadon-Sat and two on Sunday. Take on empty stomach. For Thyroid. Jossie Hayden LPN January 23, 2024 11:35 AM documented in this encounterMiddletown Hospital09-18-2024 Telephone encounter Note * Telephone Encounter - Jossie Hayden LPN - 01/23/2024 11:34 AM EDT Prescription Refill Information The patient has been identified by name and date of : Yes Caregiver verified no other encounters exist for this prescription request: Yes Caregiver confirmed with patient/requestor that no other refills are due, in the near future, with this provider at this time: Yes The last office visit in the department: 06/29/23 Does the patient have a future office visit with this provider/department: Yes 01/30/24 Requested Prescriptions Pending Prescriptions Disp Refills levothyroxine (LEVOXYL) 150 mcg tablet 34 tablet 5 Sig: Take 1 tablet by mouth once daily. Jadon-Sat and two on Sunday. Take on empty stomach. For Thyroid. Jossie Hayden LPN January 23, 2024 11:35 AM [facility]05-17-2024 Telephone encounter Note* Telephone Encounter - Mansi Mathew RN - 09/21/2023 11:06 AM EDT Pt called and is notified of providers results and instructions. Pt voices understanding. Mansi Mathew RN [facility]05-17-2024 Miscellaneous Notes* Telephone Encounter - Mansi Mathew RN - 09/21/2023 11:06 AM EDT Pt called and is notified of providers results and instructions. Pt voices understanding. Mansi Mathew RN * Telephone Encounter - Cain Pretty MD - 09/21/2023 11:02 AM EDT Let patient know her thyroid lab is much better. Continue with current levothyroxine dosage. documented in this encounterM[facility]05-[facility]24 Telephone encounter Note * Telephone Encounter - Cain Pretty MD - 09/21/2023 11:02 AM EDT Let patient know her thyroid lab is much better. Continue with current levothyroxine dosage. [facility]03[facility]18[facility] Miscellaneous Notes* Telephone Encounter - Virginia Young LPN - 07/23/2023 9:13 AM EDT Spoke with pt and information listed below given. Pt verbalizes understanding. Virginia Young LPN * Telephone Encounter - Alberto Webster LPN - 07/23/2023 8:38 AM EDT Left message for pt to contact office. Alberto Webster LPN * Telephone Encounter - Cain Pretty MD - 07/22/2023 10:17 PM EDT Let patient know her TSH is high indicating she is not getting enough replacement medication. I want her to stay on the 150 mcg tab but take one a day and two on Sunday. Order placed to get repeat lab in 2 months. documented in this encounterM[facility]03-14-[facility]24 History of Present illness Narrative* Chata Maki LPN - 07/19/2023 12:18 PM EDT Scan on 07/16/2023 11:30 PM by Hector Sauceda PA-C: Consultation - Emergency Medicine Scan on 07/16/2023 9:00 PM by Hector Sauceda PA-C: Ultrasound Scan on 07/16/2023 8:39 PM by Hector Sauceda PA-C: Ultrasound documented in this encounterMidd[facility]03-[facility]-2024 History of Present illness Narrative* Choco Mo MD - 07/14/2023 11:28 AM EST Patient presents with: Urinary Frequency: low back pain x 3 days, 13 weeks being evaluated for possible miscarriage HPI: Spotting for 3 days. Had some frequency and back pain before, but worse the last 3 days. Currently 7 weeks . Had a blood test this morning to assess for possible miscarriage. Dysuria: a little Frequency: Yes, with little production when she voids Hematuria: when wipes - vaginal likely Discharge/irritation: No Nausea: Yes, and diarrhea Fever or chills: chills Back pain: bilateral lower Abdominal pain: bilateral lower Prior UTI: Yes, during pregnancies Personal history of kidney stones: no Family history of kidney stones: no, adopted Prescribed cefadroxil for sinusitis 2 weeks ago and just finishing without improvement in sinus congestion; thinks it may be allergies. PAST MEDICAL HISTORY Diagnosis Date Acquired hypothyroidism 12/17/2014 Hoshimoto's Anxiety 04/20/2014 Well adult exam 04/20/2014 Last done: 01/02/2019 PAST SURGICAL HISTORY Procedure Laterality Date SECTION HX N/A 2016 and 2021 PAST SURGICAL HISTORY OF 2005 laser surgery on bilater feet to remove warts MEDICATIONS: Current Outpatient Medications Medication Sig levothyroxine (LEVOXYL) 150 mcg tablet Take 1 tablet by mouth once daily. Take on empty stomach. For Thyroid. sertraline (ZOLOFT) 25 mg tablet Take 1 tablet by mouth once daily. No current facility-administered medications for this visit. ALLERGIES: ALLERGIES Allergen Reactions Macrobid [Nitrofura* Other: See Comments Possible urticaria. (Started shortly after finishing antibiotic) VITALS: BP 118/72 Pulse 86 Temp 36.9 C (98.5 F) Resp 16 Wt 70.5 kg (155 lb 6.8 oz) LMP 05/24/2023(Exact Date) SpO2 99% BMI 26.89 kg/m PHYSICAL EXAM: GEN: NAD HEENT: EOMI, conjunctiva clear, TMs and canals clear. No sinus tenderness. NECK: supple, no lymphadenopathy HEART: regular rate and rhythm, no murmurs LUNGS: clear to auscultation, no wheezes or crackles, no increased WOB ABDOMEN: Soft, nondistended, no masses, LLQ more than right and suprapubic tenderness BACK: No CVA tenderness. Left more than right lumbar paraspinal tenderness. ASSESSMENT/PLAN: 1. Urinary frequency - ICD9: 788.41, ICD10: R35.0 - UA DIP, URINE (POC) - trace blood only. No other signs of UTI. Send - URINE CULTURE Keep follow up with [employer] next week for 1st OB; ER evaluation if abdominal/back pain worsen or she develops fever. Choco Mo MD documented in this encounterMiddletown [facility]02-23-2024 History of Present illness Narrative* Cain Pretty MD - 06/29/2023 9:52 AM EST Chief Complaint Patient presents with: Acute Visit: L ear pain/sinus pressure and pressure in both ears; treated for sinus infection in April; has not been getting any better; using Neti pot HPI Karri Villavicencio is a 33 year old female who [...] lb) LMP 05/24/2023 (Exact Date) SpO2 99% BMI26.47 kg/m General Appearance: Well appearing, alert, in no acute distress, well-hydrated, well nourished.. Head: Normocephalic, no masses, lesions, tenderness or abnormalities. Eyes: Anicteric sclera. Pupils are equally round and reactive to light. Extraocular movements are intact. . Ears: External ears normal, canals clear, Negative findings: external ears normal to inspection andpalpation, Left tympanic membrane normal. Mobility is good, [...] for 14 days. F/u if not resolving Cain Pretty MD documented in this encounterMiddlet[facility]09-18-2023 Miscellaneous Notes* Telephone Encounter - Grady Reyes LPN - 01/22/2023 1:13 PM EDT Pt notified of results/provider response. She verbalized understanding. Grady Reyes LPN * Telephone Encounter - Cain Pretty MD - 01/20/2023 4:00 PM EDT Let patient know we will review her [...] Sun-Sun and Two on Sunday Authorizing Provider: CAIN PRETTY MD documented in this encounterMiddlet[facility]09-08-2023 Miscellaneous Notes* Telephone Encounter - Idania May Ma - 01/12/2023 8:16 AM EDT Patient last visit 10/13/22 Follow up appointment scheduled 02/01/23 documented in this encounterMiddletown [facility]09-08-2023 Miscellaneous Notes* Telephone Encounter - Idania May Ma - 01/12/2023 7:31 AM EDT Appointment 02/01. Idania May Ma documented in this encounterMiddletown [facility]08-24-2023 History of Present illness Narrative* Maryjo Chatman, PT - 12/28/2022 6:20 PM EDT Episode Visit Count: 5 Therapist That Will Accept/Oversee The Plan Of Care: Zita Velasco Start of Care Date: 11/20/22 Onset Date: 09/20/22 Plan of Care Certification Date: 11/20/22 Next Certification Due Date: 01/19/23 Patient Identified by Name and Date of : Yes REHABILITATION AND SPORTS THERAPY PHYSICAL THERAPY DISCONTINUANCE OF CARE PLAN OF CARE UPDATE: Assessment: Karri Vasquez Rowdy is discontinued from Physical Therapy services due to goal achievement and maximal benefit. and Patient/Clinician mutual decision to discontinue current plan of care.. Patient was seen for 5 visits from Start of Care Date: 11/20/22 to 12/28/2022 and treatment included: Therapeutic exercise, Manual therapy, Self-skilled nursing management, Patient/Family/Caregiver Education, and Body mechanics training. [...] her posture with computer work & work outroutines. had MRI last week which was good [...] 4+ to 5/5 t/o incl scap stabilizers, paint spray inspector strength 65# L UE Strength: grossly 4+ to 5/5 including scap stabilizers, paint spray inspector strength 55# TREATMENT: Therapeutic Exercise: 1: recheck [...] 1550 Session Stop Time : 1625 Maryjo Chatman PT documented in this encounterMiddlet[facility]08-17-2023 History of Present illness Narrative* Masha Patrick RT(R) - 12/21/2022 1:00 PM EDT Radiology Service Progress Note DATE OF SERVICE: [...] Multiple Sclerosis Spine: Cervical spine SIGNATURE: RT Abdoul(Marzena) PATIENT NAME: Karri Villavicencio DATE: December 21, 2022 TIME: 1:41 PM documented in this encounterMiddletown [facility]08-07-2023 History of Present illness Narrative* Carrington Cornell PTA - 12/11/2022 11:52 AM EDT Episode Visit Count: 4 Therapist That Will Accept/Oversee The Plan Of Care: Zita Velasco Start of Care Date: 11/20/22 Onset Date: 09/20/22 Plan of Care Certification Date: 11/20/22 Next Certification Due Date: 01/19/23 Patient Identified by Name and Date of : Yes REHABILITATION AND SPORTS THERAPY PHYSICAL THERAPY TREATMENT NOTE ASSESSMENT: Karri Villavicencio tolerated the session with no issues. She [...] 839 Carrington Cornell PTA documented in this encounterMiddletown Hospital07-31-2023 History of Present illness Narrative* Carrington Cornell PTA - 12/04/2022 3:15 PM EDT Episode Visit Count: 3 Therapist That Will Accept/Oversee The Plan Of Care: Zita Velasco Start of Care Date: 11/20/22 Onset Date: 09/20/22 Plan of Care Certification Date: 11/20/22 Next Certification Due Date: 01/19/23 Patient Identified by Name and Date of : Yes REHABILITATION AND SPORTS THERAPY PHYSICAL THERAPY TREATMENT NOTE ASSESSMENT: Karri Vasquez Rowdy tolerated the session with expected muscle soreness [...] have bee from [address] [place] Pain: Pain Pain Level: 1 Pain Location: [...] Minutes (timed/untimed): 40 Session Start Time : 755 Session Stop Time : 839 Carrington Cornell PTA documented in this encounterMiddletown Hospital07-27-2023 History of Present illness Narrative* Carrington Cornell PTA - 11/30/2022 6:07 PM EDT Episode Visit Count: 2 Therapist That Will Accept/Oversee The Plan Of Care: Zita Velasco Start of Care Date: 11/20/22 Onset Date: 09/20/22 Plan of Care Certification Date: 11/20/22 Next Certification Due Date: 01/19/23 Patient Identified by Name and Date of : Yes REHABILITATION AND SPORTS THERAPY PHYSICAL THERAPY TREATMENT NOTE ASSESSMENT: Karri Villavicencio tolerated the session with decreased symptoms and [...] from base fo skull going up back ofhead , reports neck pain slightly improved Pain: Pain Pain Level: 3 Post Treatment Pain Post Treatment Pain Level: 1 OBJECTIVE MEASURES WITH LEVEL OF FUNCTION: TREATMENT: Therapeutic Exercise: 1: *supine chin retraction 5 second hold x 5 x 2 , 2: * supine thoracic lift with scap set 5 second hold x 5 x 2 , followed by combining with cervicalretraction 3: *supine bilateral shoulder ER with scap [...] 756 Carrington Cornell PTA documented in this encounterMiddletown Hospital07-17-2023 History of Present illness Narrative* Zita Velasco, PT, DPT - 11/20/2022 11:37 AM EDT Episode Visit Count: 1 Therapist That Will Accept/Oversee The Plan Of Care: Zita Velasco Start of Care Date: 11/20/22 Onset Date: 09/20/22 Plan of Care Certification Date: 11/20/22 Next Certification Due Date: 01/19/23 Patient Identified by Name and Date of : Yes REHABILITATION AND SPORTS THERAPY PHYSICAL THERAPY EVALUATION PLAN OF CARE: Assessment: Karri Villavicencio presents with chief complaint of neck pain, [...] of Care: created on 11/20/22 through 01/01/23 [place] in home exercise program. Patient will decrease [...] Planned: 6 Planned Treatment Interventions: Therapeutic exercise (17793), Neuromuscular re- education (19109), Manual therapy (86678), Therapeutic activities (67520), Self- skilled nursing management (52307) PLAN FOR NEXT VISIT: Thoracic spine mobility exercise and progressive neck and scapular strengthening/stabilization exercise. Light manual cervical traction for symptom relief as indicated. Patient demonstrates good understanding of plan of care and treatment. The above goals and plan of care were discussed and agreed upon by patient/family. SUBJECTIVE: Karri Villavicencio is a 32 year old female seen today for Bilateral neck pain and tightness with onset 2 months insidiously .Notes that she began exercising about 5 months ago, about 4 times a week for about an hour. This included low weight lifting (exercise video) and Yuni, no injuries to the neck. 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 Yuni 2x/week. Intake Information: Prescription present Previous Treatment: [...] Education TREATMENT: PT Treatment Interventions: Therapeutic Exercise, Self-Correction Management Evaluation Therapeutic Exercise: 1: *Row x10 green 2: *bilat ER with band x10 green 3: *supine DNF chin tuck 5" hold x6 4: reviewed body mechanics with [...] and tactile cuing. Patient education as noted. Self-Correction Management: 1: education on objective findings, PT [...] Zita Velasco PT, DPT documented in this encounterM[facility]03-06-2023 Miscellaneous Notes* Telephone Encounter - Cain Pretty MD - 07/10/2022 5:35 PM EST The following approved medication requests have been transmitted electronically. Requested Prescriptions Signed Prescriptions Disp Refills levothyroxine (SYNTHROID) 137 mcg tablet 30 tablet 5 Sig: TAKE 1 TABLET BY MOUTH DAILY Authorizing Provider: CAIN PRETTY MD * Telephone Encounter - Blank Bill MA - 07/10/2022 3:16 PM EST Patient has been identified by name and date of : Yes Requested Prescriptions Pending Prescriptions Disp Refills levothyroxine (SYNTHROID) 137 mcg tablet 30 tablet 5 Sig: TAKE 1 TABLET BY MOUTH DAILY RX INSTRUCTIONS: Patient aware RX will be sent to pharmacy. No need to notify patient. TORITO 05/29/22 NOV 02/01/23 Blank Bill MA documented in this encounterM[facility]01-25-2023 Miscellaneous Notes* Telephone Encounter - Mansi Mathew RN - 05/31/2022 1:09 PM EST Pt called and is notified of providers results and instructions. Pt voices understanding. Mansi Mathew RN * Telephone Encounter - Catarina Lockhart PA-C - 05/31/2022 10:55 AM EST Urine does still show infection. Will treat with a different atb. Can still breastfeed with this atb. Let us know if symptoms don't resolve. Thanks. Catarina Lockhart PA-C documented in this encounterMiddletown Hospital01-23-2023 History of Present illness Narrative* Catarina Lockhart PA-C - 05/29/2022 10:13 AM EST Chief Complaint Patient presents with: Hives: Over body X 2 days HPI Karri Villavicencio is a 32 year old female who [...] HISTORY Procedure Laterality Date SECTION HX N/A 2017 and 2021 PAST SURGICAL HISTORY OF 2005 [...] education for prevention given - URINE CULTURE Catarina Lockhart PA-C documented in this encounterMiddletown Hospital11-28-2022 Instructions* Patient Instructions* Michele Chow APRN.GRAIN THRESHER - 04/03/2022 1:58 PM EST [facility] PATIENT INFO BLADDER INFECTION OVERVIEW Bladder infections are one of the most common infections, causing symptoms of burning with urination and needing to urinate frequently. A bladder infection is a type of urinary tract infection (UTI).Bladder infections are more common is women than men. Most women have an uncomplicated bladder infection that is easily treated with a short course of antibiotics. In men, bladder infections may alsoaffect the prostate gland, and a longer course [...] symptoms of a bladder infection, but can occurin people with a kidney infection (pyelonephritis). If [...] typical for bladder infection You have had "resistant" bladder infections before You have frequent bladder [...] treatment is usually given for at least 7days. Your symptoms should begin to resolve within [...] UTIs. A similar medication is available without aprescription (eg, Uristat). Both medications change the color of the urine (usually blue or orange)and can interfere with laboratory testing. You should not take these medications for more than 48 hours due to the risk of side effects. These medications do not treat the infection and must be takenalong with an antibiotic. Some providers recommend drinking [...] -- Some adults, especially women, develop bladder infectionsfrequently. In this case, it is important to [...] actually have an infection. documented in this encounterMiddletown [facility]11-28-2022 History of Present illness Narrative* Michele Chow APRN.CNP - 04/03/2022 1:51 PM EST This note was created using NoteWriter. Subjective Karri Phan Sami Villavicencio is a 32 year old female. Back [...] Her past medical history does not include k idney stones. Review of Systems Constitutional: Positive for [...] (Temporal) Resp 16 Ht 162.6 cm (5' 4") Wt 64.9 kg(143 lb) LMP 11/07/2021 (Approximate) SpO2 100% BMI [...] - Cefdinir x 5 days Michele Chow APRN.GRAIN THRESHER documented in this encounterMiddlet[facility]09-28-2022 History of Present illness Narrative* Catarina Lockhart PA-C - 02/01/2022 12:16 PM EDT iChief Complaint Patient presents with: Physical: Has form for completion HPI Karrimauri Villavicencio is a 31 year old female who [...] F) Resp 16 Ht 160.5 cm (5' 3.19") Wt 64.4 kg (142 lb) LMP 11/07/2021 [...] Abs Lymph 1.00 - 4.00 k/uL 2.23 Rice% % 7.3 Abs Rice <0.87 k/uL 0.51 Eosin% % 10.0 Abs [...] diet of 1000 mg/day for under 50, 1200- 1500 mg/day for 50+ 2. Anxiety - ICD9: [...] up yearly. Recheck tsh in 6 months. Catarina Lockhart PA-C documented in this encounterM[facility]09-14-2022 Miscellaneous Notes* Telephone Encounter - Peg Loaiza Ma - 01/18/2022 2:10 PM EDT Please see pt message and place lab orders needed Pge Loaiza Ma documented in this encounterMiddletown Hospital08-10-2022 History of Present illness Narrative* Shravan Martin APRN.SHEILA - 12/14/2021 5:33 PM EDT Images from the original note were not included. Subjective HPI HPI Karri Villavicencio is a 31 year old female who [...] resp. rate 21, weight 65.7 kg (144 lb12.8 oz), last menstrual period 11/07/2021, SpO2 98 [...] TOPICAL CREAM Agrees to plan Shravan Martin APRN.CNP documented in this encounterMiddletown HospitalEvaluation note* Diagnosis Onset Date Resolution Status Anemia affecting a cute Anxiety acute Family history of congenital anomaly of cardiovascular system acute H/O section acute Hypothyroidism acute IUGR (intrauterine growth re striction) in prior , acute Marginal insertion of umbilical cord acute acute Supervision of other normal acute UTI in acute History of oligohydramnios i n prior , currently resolved Anemia affecting a cute Anxiety acute Family history of congenital anomaly of cardiovascular system acute H/O section acute Hypothyroidism acute IUGR (intrauterine growth re striction) in prior , acute Marginal insertion of umbilical cord acute acute Supervision of other normal acute UTI in acute History of oligohydramnios i n prior , currently resolved Anemia affecting a cute Anxiety acute Family history of congenital anomaly of cardiovascular system acute H/O section acute Hypothyroidism acute IUGR (intrauterine growth re striction) in prior , acute Marginal insertion of umbilical cord acute acute Supervision of other normal acute UTI in acute Abnormal glucose affecting resolved History of oligohydramnios i n prior , currently resolved Anemia affecting a cute Anxiety acute Family history of congenital anomaly of cardiovascular system acute Gestational diabetes acute H/O section acute Hypothyroidism acute IUGR (intrauterine growth re striction) in prior , acute Marginal insertion of umbilical cord acute acute Supervision of other normal acute UTI in acute Abnormal glucose affecting resolved History of oligohydramnios i n prior , currently resolved Gestational diabetes acute Anemia affecting a cute Anxiety acute Family history of congenital anomaly of cardiovascular system acute Gestational diabetes acute H/O section acute Hypothyroidism acute IUGR (intrauterine growth re striction) in prior , acute Marginal insertion of umbilical cord acute acute Supervision of other normal acute UTI in acute History of oligohydramnios i n prior , currently resolved Anemia affecting a cute Anxiety acute Family history of congenital anomaly of cardiovascular system acute Gestational diabetes acute H/O section acute Hypothyroidism acute IUGR (intrauterine growth re striction) in prior , acute Marginal insertion of umbilical cord acute acute Supervision of other normal acute UTI in acute Anemia affecting a cute Anxiety acute Family history of congenital anomaly of cardiovascular system acute Gestational diabetes acute H/O section acute Hypothyroidism acute IUGR (intrauterine growth re striction) in prior , acute Marginal insertion of umbilical cord acute acute UTI in acute [facility] Work Phone: Evaluation note* Diagnosis Onset Date Resolution Status Anemia affecting a cute Anxiety acute Family history of congenital anomaly of cardiovascular system acute H/O section acute Hypothyroidism acute IUGR (intrauterine growth re striction) in prior , acute Marginal insertion of umbilical cord acute acute Supervision of other normal acute UTI in acute History of oligohydramnios i n prior , currently resolved Anemia affecting a cute Anxiety acute Family history of congenital anomaly of cardiovascular system acute H/O section acute Hypothyroidism acute IUGR (intrauterine growth re striction) in prior , acute Marginal insertion of umbilical cord acute acute Supervision of other normal acute UTI in acute History of oligohydramnios i n prior , currently resolved Anemia affecting a cute Anxiety acute Family history of congenital anomaly of cardiovascular system acute H/O section acute Hypothyroidism acute IUGR (intrauterine growth re striction) in prior , acute Marginal insertion of umbilical cord acute acute Supervision of other normal acute UTI in acute Abnormal glucose affecting resolved History of oligohydramnios i n prior , currently resolved Anemia affecting a cute Anxiety acute Family history of congenital anomaly of cardiovascular system acute Gestational diabetes acute H/O section acute Hypothyroidism acute IUGR (intrauterine growth re striction) in prior , acute Marginal insertion of umbilical cord acute acute Supervision of other normal acute UTI in acute Abnormal glucose affecting resolved History of oligohydramnios i n prior , currently resolved Gestational diabetes acute Anemia affecting a cute Anxiety acute Family history of congenital anomaly of cardiovascular system acute Gestational diabetes acute H/O section acute Hypothyroidism acute IUGR (intrauterine growth re striction) in prior , acute Marginal insertion of umbilical cord acute acute Supervision of other normal acute UTI in acute History of oligohydramnios i n prior , currently resolved Anemia affecting a cute Anxiety acute Family history of congenital anomaly of cardiovascular system acute Gestational diabetes acute H/O section acute Hypothyroidism acute IUGR (intrauterine growth re striction) in prior , acute Marginal insertion of umbilical cord acute acute Supervision of other normal acute UTI in acute Anemia affecting a cute Anxiety acute Family history of congenital anomaly of cardiovascular system acute Gestational diabetes acute H/O section acute Hypothyroidism acute IUGR (intrauterine growth re striction) in prior , acute Marginal insertion of umbilical cord acute acute UTI in acute Anemia affecting a cute Anxiety acute Family history of congenital anomaly of cardiovascular system acute Gestational diabetes acute H/O section acute Hypothyroidism acute IUGR (intrauterine growth re striction) in prior , acute Marginal insertion of umbilical cord acute acute Supervision of other normal acute UTI in acute [facility] Work Phone: Evaluation note* Diagnosis Onset Date Resolution Status Anxiety acute Hypothyroidism acute Anemia affecting r esolved Family history of congenital anomaly of cardiovascular system resolved H/O section resolve d History of oligohydramnios i n prior , currently resolved IUGR (intrauterine growth re striction) in prior , resolved Marginal insertion of umbilical cord resolved resolved Supervision of other normal resolved UTI in resolved Anxiety acute Hypothyroidism acute Abnormal glucose affecting resolved Anemia affecting r esolved Family history of congenital anomaly of cardiovascular system resolved H/O section resolve d History of oligohydramnios i n prior , currently resolved IUGR (intrauterine growth re striction) in prior , resolved Marginal insertion of umbilical cord resolved resolved Supervision of other normal resolved UTI in resolved Anxiety acute Gestational diabetes acute Hypothyroidism acute Abnormal glucose affecting resolved Anemia affecting r esolved Family history of congenital anomaly of cardiovascular system resolved H/O section resolve d History of oligohydramnios i n prior , currently resolved IUGR (intrauterine growth re striction) in prior , resolved Marginal insertion of umbilical cord resolved resolved Supervision of other normal resolved UTI in resolved Gestational diabetes acute Anxiety acute Gestational diabetes acute Hypothyroidism acute Anemia affecting r esolved Family history of congenital anomaly of cardiovascular system resolved H/O section resolve d History of oligohydramnios i n prior , currently resolved IUGR (intrauterine growth re striction) in prior , resolved Marginal insertion of umbilical cord resolved resolved Supervision of other normal resolved UTI in resolved Anxiety acute Gestational diabetes acute Hypothyroidism acute Anemia affecting r esolved Family history of congenital anomaly of cardiovascular system resolved H/O section resolve d IUGR (intrauterine growth re striction) in prior , resolved Marginal insertion of umbilical cord resolved resolved Supervision of other normal resolved UTI in resolved Anxiety acute Gestational diabetes acute Hypothyroidism acute Anemia affecting r esolved Family history of congenital anomaly of cardiovascular system resolved H/O section resolve d IUGR (intrauterine growth re striction) in prior , resolved Marginal insertion of umbilical cord resolved resolved UTI in resolved Anxiety acute Gestational diabetes acute Hypothyroidism acute Anemia affecting r esolved Family history of congenital anomaly of cardiovascular system resolved H/O section resolve d IUGR (intrauterine growth re striction) in prior , resolved Marginal insertion of umbilical cord resolved resolved Supervision of other normal resolved UTI in resolved Anxiety acute Gestational diabetes acute Hypothyroidism acute Anemia affecting r esolved Family history of congenital anomaly of cardiovascular system resolved H/O section resolve d IUGR (intrauterine growth re striction) in prior , resolved Marginal insertion of umbilical cord resolved resolved Supervision of other normal resolved UTI in resolved Anxiety acute delivery delivered acute Gestational diabetes acute Hypothyroidism acute Anemia affecting r esolved Family history of congenital anomaly of cardiovascular system resolved H/O section resolve d IUGR (intrauterine growth re striction) in prior , resolved Marginal insertion of umbilical cord resolved resolved Supervision of other normal resolved UTI in resolved [facility] Work Phone: Evaluation note* Diagnosis Acquired hypothyroidism- Primary Unspecified hypothyroidism [facility] Diagnosis Rash- Primary Rash and other nonspecific skin eruption [facility]* Diagnosis Encounter for screening for cardiovascular disorders- Primary Screening for other and unspecified cardiovascular conditions Encounter for screening for diabetes mellitus Screening for diabetes mellitus Medication management Encounter for long-term (current) use of other medications [facility]* Diagnosis Well adult exam- Primary Routine general medical examination at a health care facility Anxiety Anxiety state, unspecified Acquired hypothyroidism Unspecified hypothyroidism Immunity status testing Antibody response examination [facility]* Diagnosis Acute cystitis with hematuria- Primary Acute cystitis [facility]* Diagnosis Dysuria- Primary [facility] Diagnosis Urticaria- Primary Urticaria, unspecified Dysuria [facility]* Diagnosis Acquired hypothyroidism Unspecified hypothyroidism [facility]* Diagnosis Cervicogenic headache- Primary Headache [facility]* Diagnosis Cervicogenic headache- Primary Headache [facility]* Diagnosis Cervicogenic headache- Primary Headache [facility]* Diagnosis Cervicogenic headache- Primary Headache [facility]* Diagnosis Acquired hypothyroidism- Primary Unspecified hypothyroidism Agitation Other and unspecified special symptom or syndrome, not elsewhere classified Encounter for screening for cardiovascular disorders Screening for other and unspecified cardiovascular conditions Encounter for screening for diabetes mellitus Screening for diabetes mellitus Medication management Encounter for long-term (current) use of other medications [facility]* Diagnosis Acquired hypothyroidism Unspecified hypothyroidism [facility] Diagnosis Acquired hypothyroidism Unspecified hypothyroidism [facility]* Diagnosis Demyelinating disease of central nervous system (HCC) Demyelinating disease of central nervous system, unspecified documented in this encounter [facility] note* Diagnosis Demyelinating disease of central nervous system (HCC) Demyelinating disease of central nervous system, unspecified [facility]* Diagnosis Bacterial sinusitis- Primary Unspecified sinusitis (chronic) documented in this encounter [facility] note* Diagnosis Urinary frequency- Primary documented in this encounter [facility] noteNo assessment information [facility] Work Phone: evaluation [facility]* Diagnosis Onset Date Resolution Status Incomplete miscarriage acute [facility] Work Phone: evaluation note* Diagnosis Acquired hypothyroidism- Primary Unspecified hypothyroidism [facility]* Diagnosis Acquired hypothyroidism- Primary Unspecified hypothyroidism Anxiety Anxiety state, unspecified Encounter for screening for diabetes mellitus Screening for diabetes mellitus Encounter for screening for cardiovascular disorders Screening for other and unspecified cardiovascular conditions Medication management Encounter for long-term (current) use of other medications [facility]* Diagnosis Well adult exam- Primary Routine general medical examination at a health care facility Acquired hypothyroidism Unspecified hypothyroidism Anxiety Anxiety state, unspecified Encounter for immunization Need for other specified prophylactic vaccination against single bacterial disease Encounter for screening for cardiovascular disorders Screening for other and unspecified cardiovascular conditions Encounter for screening for diabetes mellitus Screening for diabetes mellitus Medication management Encounter for long-term (current) use of other medications [facility]* Diagnosis Acquired hypothyroidism- Primary Unspecified hypothyroidism [facility]* Diagnosis Acquired hypothyroidism- Primary Unspecified hypothyroidism [facility]* Diagnosis Acquired hypothyroidism- Primary Unspecified hypothyroidism [facility]* Diagnosis Acquired hypothyroidism- Primary Unspecified hypothyroidism [facility] Diagnosis Burning with urination- Primary Dysuria Acute cystitis without hematuria Acute cystitis [facility] Diagnosis Onset Date Resolution Status Admit Date Advanced maternal age (AMA) in acute October 13, 2024 8 :19am Anxiety acute October 13, 2024 8:19am History of miscarriage acute Ju 2024 8:19am Hx of section acute 2024 8:19am Hypothyroidism acute October 13, 2024 8:19am Lupus anticoagulant positive acute October 13, 2024 8:19am acute October 13, 2024 8:19am Supervision of high-risk a cute October 13, 2024 8:19am UTI (urinary tract infection ) during acute October 13, 2024 8:19am [facility] Work Phone: Hospital Discharge instructions Additional Instructions Please follow-up with OB. Return for any fevers, chills, worsening bleeding, or worsening pain.[facility] Work Phone: Progress note Author Margo San [facility] Note Date/Time October 13, 2024 9:00a m [facility] [address] [place] [address], [address] [place] [address] OFFICE VISIT Date of Service: 10/13/24 MR#: [id number] Acct: [id number] Name: KARRI MARTIN Alta p #: [phone] : 1990 Provider: EZEQUIEL San Age/Sex: 34/F Location: [facility] [place] Status: Signed Intake Vital Signs 05/19/24 11:13 10/13/24 08:22 10/13/24 08:23 Height 5 ft 4 in 5 ft 4 in 5 ft 4 in Weight: 163 lb 2 oz BMI 28.0 BP 122/74 H Intake Visit Reasons: *EST* NOB LMP 08/09, MARGUERITE 05/16 Rn Chronic Required: No Is patient in pain?: No Allergies nitrofurantoin Allergy (Mild, Verified 10/13/24 08:24) Hives Medications ?Medication ?Instructions ?Recorded ?Confirmed ?Type sertraline 25 mg tablet 25 mg PO DAILY anxiety #30 t abs 10/18/22 10/13/24 Rx levothyroxine 150 mcg tablet 150 mcg PO .COMPLEX hypot hyorid 10/03/24 10/13/24 History multivit-min no.71-iron fum 28 cap PO 10/03/24 5 History mg-folate no.1 1 mg-dha 300 mg capsule (PNV-Merrifield) Last Menstrual Period: 08/12/24 Zika: Zika virus screening: Negative : No PFSH PFSH Medical History AMA (advanced maternal age) multigravida 35+ H/O gestational diabetes in prior , currently Supervision of high-risk History of oligohydramnios in prior , currently Previous gestational diabetes mellitus, antepartum Spotting in early Hx of recurrent urinary tract infection delivery delivered History of pre-term labor History of premature rupture of membranes (PPROM) History of prior with IUGR Thyroid disorder Anemia affecting IUGR (intrauterine growth restriction) in prior , Surgical History H/O dilation and curettage H/O section Campbell teeth extracted S/P Family History Father Diabetes Grandfather Diabetes Paternal & Maternal Mother Seizures Social History adopted: Yes (13yrs old) household members: spouse and children housing: house number of children: 3 service: No current occupational status: employed 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[employer] current 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/hazards: No pets and animals: Yes ( taking care of litter box) pets and animals: cat(s) and dog(s) history of recent travel: No sexually active: Yes Smoking Status: Never smoker alcohol intake: current alcohol intake frequency: holidays/special occasions only details: Not while substance use type: does not use well-balanced diet: daily or most days caffeine: No eating out: rarely or never during the past year weight has: remained stable what type of physical activity do you participate in: walking and weight training frequency: 3-4 times per week duration: 15-30 minutes/day fatou/christianity: Quaker seatbelt use: always do you feel safe at home: Yes additional social history: : Stephen - Management History 7 Elective abortions Hx Para 3 Spontaneous abortions 3 Hx # Term Pregnancies Ectopic pregnancies Hx # Pregnancies Multiple births # of living children 3 Past Pregnancies Del. Date Name GA/Weeks Outcome Route Bth Weight Gen Labor Lgth Anesthesia Del Locatn Provider FOB 04/03/17 Antonina 40 live - full term 7lbs 12oz Fem sahil 3 days epidural [facility] Dr[facility] Whitmore [facility] 01/10/19 Raffy 36 live - 5lbs 12oz Male 0 spinal [facility] 11/19/20 5 spontaneous 08/22/21 Lieda 39 live - full term 7lbs 3oz Female spinal [facility] 07/16/23 5 spontaneous 04/21/24 11 spontaneous SM Delivery Date: 04/03/17 Last Updated by: Kim Olsen STAT c/s nuchal cord; distress Delivery Date: 01/10/19 Last Updated by: Kim Olsen PPROM, STAT C/S; IUGR; Oligo Delivery Date: 08/22/21 Last Updated by: Karina Chávez RLS Delivery Date: 04/21/24 Last Updated by: Alice Padilla, RN D&C, measuring 9w1d HPI *EST* NOB LMP 4/5, MARGUERITE 05/16 Details: KARRI VILLAVICENCIO is a 34 year old who presents for New OB visit. OB Visit MARGUERITE Calculator Estimated Delivery Date Method Current WG Current Estimate 05/16/25 LMP (Certain) 9w 2d Other Estimates 05/15/25 Ultrasound #1 9w 3d Comments: HIV: Urine Culture: Sequential Screen: NIPT Screen: Estimated Due Date: 05/16/25 Expected Delivery Route/Plan plans repeat c/s Specific Issue/Plans Covid status: [] Flu vaccine: [] Tdap vaccine: [] Rhogam: [] LARC form signed: [] Problem list reviewed and updated with the most current plan of care details and appropriate orders placed. Relevant counseling for the gestational age provided. Continue routine care and follow up unless otherwise noted in visit notes/problem list details Initial Weight: Not Recorded Date -?-?-?-?-?-?-?-?-?-?-?-?- EGA Weight BP Urine Prot -?-?-?-?-?-?-?-?-?-?-?-?- Glucose FHR FuHt Pres Dilation -?-?-?-?-?-?-?-?-?-?-?-?- Effaced St Visit Note 10/13/24 -?-?-?-?-?-?-?-?-?-?-?-?- 9w 2d 163 lb 2 oz 122/74 -?-?-?-?-?-?-?-?-?-?-?-?- 175 -?-?-?-?-?-?-?-?-?-?-?-?- KW- CRL cons wit h dates. Accepts NIPT-currently on ATB for UTI. will get culture in 4 weeks. would like to RTO in 2 weeks for FHT due to hx SAB. Menstrual History Last Menstrual Period: 08/12/24 Reported LMP: definite Normal amount/duration: Yes Frequency in days: 28 On hormonal BC at conception: No hCG+: 09/06/24 Antepartum Record Genetic Screening: Congenital Heart Defect: Partner (brother transpostion of the great vessels), Neural Tube Defect: Other, Hemoglobinopathy Or Carrier: Other, Cystic Fibrosis: Other, Chromosome Abnormality: Other, Venancio-Sachs: Other, Hemophilia: Other, Intellectual Disability/Autism: Patient (1/2 Brothers son Autistic), Recurrent Loss/Stillbirth: Patient (3 miscarriages), Other Structural Defect: Other, Other Genetic Disease: Other and Maternal Metabolic Disorder: Other Infection History: Live with someone with TB or Exposed to TB: No, Patient or Partner has history of Genital Herpes: No, Rash or Viral illness since last mentrual period: No, Prior GBS-Infected child: Yes (First +), History of STD: No, HIV Infection: No, History of Hepatitis: No, Recent travel outside of [place]: No, Concern for hepatitis exposure: No, Varicella immune: Yes (immune-virus) and Covid Vaccinated: No Medical History Medical History: Positive: Diabetes (GDM last viable ), Kidney disease/UTI (frequent UTI when with last viable - ATB therapy for whole ), Psychiatric (anxiety), Thyroid dysfunction (hypothyroidism), Seasonal allergies (Spring), Drug/latex allergies/reactions (nitrofurantoin), [facility] Center Nurse surgery (D&C 04/29) and Operations/hospitalizations and Negative: Hypertension, Heart disease, Auto-immune disorder, Neurologic/epilepsy, Depression/ depression, Hepatitis/liver disease, Varicosities/phlebitis, Trauma/domestic violence, History of blood transfusions, D (Rh) Sensitized, Pulmonary (e.g.,TB,Asthma), Breast, Anesthetic complications, History of abnormal pap, Uterine anomaly/gloria, Infertility, Anti-retroviral treatment and Relevant family history ACOG First Trimester First Trimester: Desire for , Alcohol, Tobacco Cessation, Illicit/Recreational Drug/Substance Use, Intimate Partner Violence, Barriers to care, Unstable Housing, Communication Barriers, Environmental/Work Hazards, Anticipated Course of Care, Nurtrition and weight gain, Toxoplasmosis Precations, Use of Any medications, Sexual activity, Exercise, Dental Care, Sauna/Hot tub use, Seat Belt use, Childbirth classes/Hospital facilities, Travel, Indications for Ultrasound and Screening for Aneuploidy; Discussed Coding Level of Care Code OB Routine Diagnoses Hx of section Z98.891 Advanced maternal age (AMA) in Supervision of high-risk O09.90 9 weeks gestation of Z3A.09 Weeks of gestation: 9 weeks Lupus anticoagulant positive R76.0 History of miscarriage Z87.59 Hypothyroidism E03.9 Anxiety F41.9 UTI (urinary tract infection) during O23.40 Assessment and Plan Assessment and Plan (1) Hx of section: Status: Acute Comment: x3, plans c section (2) Advanced maternal age (AMA) in : Status: Acute (3) Supervision of high-risk : Status: Acute Comment: , MARGUERITE 05/16/25, Raffy Christopher Lieda, Stephen (4) : Status: Acute Qualifiers: Weeks of gestation: 9 weeks Qualified Code(s): Z3A.09 - 9 weeks gestation of Comment: elects NIPT with gender (5) Lupus anticoagulant positive: Status: Acute Comment: repeat antibody testing ordered, normal range in July (6) History of miscarriage: Status: Acute Comment: x3 (7) Hypothyroidism: Status: Acute Comment: needs TSH qtrimester- currently increased Levothyroxine from 137 to 150mcg. rpt in one month from 04/14 visit. order in. pt aware. (8) Anxiety: Status: Acute Comment: Zoloft adequate/stable (9) UTI (urinary tract infection) during : Status: Acute Comment: at NOB. needs repeat culture in November Orders: Orders CBC W/Diff, Automated 10/03/24 O09.90 - Supervision of high risk , unspecified, unspecified trimester, R76.0 - Raised antibody titer Type & Screen 10/03/24 O09.90 - Supervision of high risk , unspecified, unspecified trimester, R76.0 - Raised antibody titer Rubella IgG 10/03/24 O09.90 - Supervision of high risk , unspecified, unspecified trimester, R76.0 - Raised antibody titer Hepatitis C Antibody 10/03/24 O09.90 - Supervision of high risk , unspecified, unspecified trimester, R76.0 - Raised antibody titer Hepatitis B Surface Antigen 10/03/24 O09.90 - Supervision of high risk , unspecified, unspecified trimester, R76.0 - Raised antibody titer Culture, Urine 10/03/24 O09.90 - Supervision of high risk , unspecified, unspecified trimester, R76.0 - Raised antibody titer Syphilis Antibodies 10/03/24 O09.90 - Supervision of high risk , unspecified, unspecified trimester, R76.0 - Raised antibody titer Chlamydia/GC LYLY aptima 10/03/24 O09.90 - Supervision of high risk , unspecified, unspecified trimester, R76.0 - Raised antibody titer HIV 10/03/24 O09.90 - Supervision of high risk , unspecified, unspecified trimester, R76.0 - Raised antibody titer Thyroid Stim Hormone (TSH) 10/03/24 E03.9 - Hypothyroidism, unspecified, O09.90 - Supervision of high risk , unspecified, unspecified trimester T4 Free Direct 10/03/24 E03.9 - Hypothyroidism, unspecified, O09.90 - Supervision of high risk , unspecified, unspecified trimester [facility] Misc. 10/03/24 E03.9 - Hypothyroidism, unspecified, O09.90 - Supervision of high risk , unspecified, unspecified trimester BLAS 10/03/24 O09.90 - Supervision of high risk , unspecified, unspecified trimester, R76.0 - Raised antibody titer 10/13/24 0900 <Electronically signed by Margo ramirez CNM> Date _ Margo San CNM Cosigner Signature: Date (if applicable) CC: ~ [facility] Work Phone: Progress note Author Smiley Madrid [facility] Note Date/Time October 27, 2024 11:4 1am [facility] [address], [address] [place] [address] OFFICE VISIT Date of Service: 10/27/24 MR#: [id number] Acct: [id number] Name: KARRI MARTIN Sylvester Holm p #: [phone] : 1990 Provider: Dr. Darren Madrid MD Age/Sex: 34/F Location: [facility] [place] Status: Signed Intake Vital Signs 10/13/24 08:23 10/27/24 11:09 Height 5 ft 4 in 5 ft 4 in Weight: 161 lb 6 oz BMI 27.6 BP 116/62 Intake Visit Reasons: Heartbeat Check Rn Chronic Required: No Is patient in pain?: No Allergies nitrofurantoin Allergy (Mild, Verified 10/27/24 11:12) Hives Medications ?Medication ?Instructions ?Recorded ?Confirmed ?Type sertraline 25 mg tablet 25 mg PO DAILY anxiety #30 t abs 10/18/22 10/27/24 Rx levothyroxine 150 mcg tablet 150 mcg PO .COMPLEX hypot hyorid 10/03/24 10/27/24 History multivit-min no.71-iron fum 28 cap PO 10/03/24 5 History mg-folate no.1 1 mg-dha 300 mg capsule (PNV-Merrifield) Last Menstrual Period: 08/12/24 Zika: Zika virus screening: Negative : No PFSH PFSH Medical History AMA (advanced maternal age) multigravida 35+ H/O gestational diabetes in prior , currently Supervision of high-risk History of oligohydramnios in prior , currently Previous gestational diabetes mellitus, antepartum Spotting in early Hx of recurrent urinary tract infection delivery delivered History of pre-term labor History of premature rupture of membranes (PPROM) History of prior with IUGR Thyroid disorder Anemia affecting IUGR (intrauterine growth restriction) in prior , Surgical History H/O dilation and curettage H/O section Campbell teeth extracted S/P Family History Father Diabetes Grandfather Diabetes Paternal & Maternal Mother Seizures Social History adopted: Yes (13yrs old) household members: spouse and children housing: house number of children: 3 current occupational status: employed 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[employer] current 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/hazards: No pets and animals: Yes ( taking care of litter box) pets and animals: cat(s) and dog(s) history of recent travel: No sexually active: Yes Smoking Status: Never smoker alcohol intake: current alcohol intake frequency: holidays/special occasions only details: Not while substance use type: does not use well-balanced diet: daily or most days caffeine: No eating out: rarely or never during the past year weight has: remained stable what type of physical activity do you participate in: walking and weight training frequency: 3-4 times per week duration: 15-30 minutes/day fatou/christianity: Quaker seatbelt use: always do you feel safe at home: Yes additional social history: : Stephen - Management History 7 Elective abortions Hx Para 3 Spontaneous abortions 3 Hx # Term Pregnancies Ectopic pregnancies Hx # Pregnancies Multiple births # of living children 3 Past Pregnancies Del. Date Name GA/Weeks Outcome Route Bth Weight Gen Labor Lgth Anesthesia Del Locatn Provider FOB 04/03/17 Antonina 40 live - full term 7lbs 12oz Fem sahil 3 days epidural [facility] Dr. Whitmore Stephen 01/10/19 Raffy 36 live - 5lbs 12oz Male 0 spinal [facility] 11/19/20 5 spontaneous 08/22/21 Lieda 39 live - full term 7lbs 3oz Female spinal [facility] 07/16/23 5 spontaneous 04/21/24 11 spontaneous SM Delivery Date: 04/03/17 Last Updated by: Kim Olsen STAT c/s nuchal cord; distress Delivery Date: 01/10/19 Last Updated by: Kim Olsen PPROM, STAT C/S; IUGR; Oligo Delivery Date: 08/22/21 Last Updated by: Karina Chávez RLTCS Delivery Date: 04/21/24 Last Updated by: Alice Padilla RN D&C, measuring 9w1d HPI Heartbeat Check Details: KARRI VILLAVICENCIO is a 34 year old who presents for routine OB visit. OB Visit MARGUERITE Calculator Estimated Delivery Date Method Current WG Current Estimate 05/16/25 LMP (Certain) 11w 2d Other Estimates 05/15/25 Ultrasound #1 11w 3d Expected Delivery Route/Plan plans repeat c/s Specific Issue/Plans Covid status: [] Flu vaccine: [] Tdap vaccine: [] Rhogam: [] LARC form signed: [] Problem list reviewed and updated with the most current plan of care details and appropriate orders placed. Relevant counseling for the gestational age provided. Continue routine care and follow up unless otherwise noted in visit notes/problem list details Initial Weight: Not Recorded Date -?-?-?-?-?-?-?-?-?-?-?-?- EGA Weight BP Urine Prot -?-?-?-?-?-?-?-?-?-?-?-?- Glucose FHR FuHt Pres Dilation -?-?-?-?-?-?-?-?-?-?-?-?- Effaced St Visit Note 10/13/24 -?-?-?-?-?-?-?-?-?-?-?-?- 9w 2d 163 lb 2 oz 122/74 -?-?-?-?-?-?-?-?-?-?-?-?- 175 -?-?-?-?-?-?-?-?-?-?-?-?- KW- CRL cons wit h dates. Accepts NIPT-currently on ATB for UTI. will get culture in 4 weeks. would like to RTO in 2 weeks for FHT due to hx SAB. 10/27/24 -?-?-?-?-?-?-?-?-?-?-?-?- 11w 2d 161 lb 6 oz 116/62 Nega tive -?-?-?-?-?-?-?-?-?-?-?-?- Negative 168 -?-?-?-?-?-?-?-?-?-?-?-?- SM- no vb crmapi ng ACOG First Trimester First Trimester: Desire for , Alcohol, Tobacco Cessation, Illicit/Recreational Drug/Substance Use, Intimate Partner Violence, Barriers to care, Unstable Housing, Communication Barriers, Environmental/Work Hazards, Anticipated Course of Care, Toxoplasmosis Precations, Use of Any medications, Sexual activity, Exercise, Dental Care, Sauna/Hot tub use, Seat Belt use, Childbirth classes/Hospital facilities, Travel, Indications for Ultrasound and Screening for Aneuploidy; Discussed Results POC Urinalysis Dip (Clinic) Office Urine Color YELLOW Last Edit by Bulmaro Ocampo on 10/27/24 11:22 Office Urine Clarity Clear Last Edit by Bulmaro Ocampo on 10/27/24 11:22 Office Urine Glucose Negative Last Edit by Bulmaro Ocampo on 10/27/24 11:22 Office Urine Ketones Negative Last Edit by Bulmaro Ocampo on 10/27/24 11:22 Off Ur Spec [place] 1.010 Last Edit by Bulmaro Ocampo on 10/27/24 11:22 Office Urine pH 6.0 Last Edit by Bulmaro Ocampo on 10/27/24 11:22 Office Urine Bilirubin Negative Last Edit by Bulmaro Ocampo on 10/27/24 11: 22 Office Urine Urobilinogen Negative Last Edit by Bulmaro Ocampo on 10/27/24 11:22 Office Urine Blood Negative Last Edit by Bulmaro Ocampo on 10/27/24 11:22 Office Urine Blood Hemolyzed NA Last Edit by Bulmaro Ocampo on 10/27/24 11: 22 Office Urine Protein Negative Last Edit by Bulmaro Ocampo on 10/27/24 11:22 Office Urine Nitrate Negative Last Edit by Bulmaro Ocampo on 10/27/24 11:22 Off Ur Leukocytes Negatve Last Edit by Bulmaro Ocampo on 10/27/24 11:22 Coding Level of Care Code OB Routine Diagnoses UTI (urinary tract infection) during O23.40 Hx of section Z98.891 Advanced maternal age (AMA) in Supervision of high-risk O09.90 11 weeks gestation of Z3A.11 Weeks of gestation: 11 weeks Lupus anticoagulant positive R76.0 History of miscarriage Z87.59 Hypothyroidism E03.9 Anxiety F41.9 Assessment and Plan Assessment and Plan (1) UTI (urinary tract infection) during : Status: Acute Comment: at NOB. needs repeat culture in November (2) Hx of section: Status: Acute Comment: x3, plans c section (3) Advanced maternal age (AMA) in : Status: Acute (4) Supervision of high-risk : Status: Acute Comment: , MARGUERITE 05/16/25, PC Raffy Sarkar Lieda, Stephen (5) : Status: Acute Qualifiers: Weeks of gestation: 11 weeks Qualified Code(s): Z3A.11 - 11 weeks gestation of Comment: elects NIPT with gender (6) Lupus anticoagulant positive: Status: Acute Comment: repeat antibody testing ordered, normal range in July (7) History of miscarriage: Status: Acute Comment: x3 (8) Hypothyroidism: Status: Acute Comment: needs TSH qtrimester- currently increased Levothyroxine from 137 to 150mcg. rpt in one month from 04/14 visit. order in. pt aware. (9) Anxiety: Status: Acute Comment: Zoloft adequate/stable Orders: Orders Culture, Urine Today R35.0 - Frequency of micturition POC Urinalysis Dip (Clinic) Today R35.0 - Frequency of micturition 10/27/24 1141 <Electronically signed by Smiley sepulveda MD> Date _ Smiley Madrid MD Cosigner Signature: Date (if applicable) CC: ~ [facility] Work Phone: Progress note Author Margo San [facility] Note Date/Time December 01, 2024 10:[facility] [address], [address] [place] [address] OFFICE VISIT Date of Service: 12/01/24 MR#: [id number] Acct: [id number] Name: KARRI MARTIN p #: [phone] : 1990 Provider: EZEQUIEL San Age/Sex: 34/F Location: [facility] Status: Signed Intake Vital Signs 10/13/24 08:23 11/18/24 10:04 12/01/24 10:40 Height 5 ft 4 in 5 ft 4 in 5 ft 4 in Weight: 161 lb 8 oz BMI 27.7 BP 115/72 Intake Visit Reasons: Heartbeat check Chief Complaint: Heartbeat check Rn Chronic Required: No Is patient in pain?: No Allergies nitrofurantoin Allergy (Mild, Verified 11/18/24 10:02) Hives Medications ?Medication ?Instructions ?Recorded ?Confirmed ?Type sertraline 25 mg tablet 25 mg PO DAILY anxiety #30 t abs 10/18/22 12/01/24 Rx levothyroxine 150 mcg tablet 150 mcg PO .COMPLEX hypot hyorid 10/03/24 12/01/24 History multivit-min no.71-iron fum 28 cap PO 10/03/24 5 History mg-folate no.1 1 mg-dha 300 mg capsule (PNV-Merrifield) Last Menstrual Period: 04/08/25 : No Have you fallen in the past year?: No PFSH PFSH Medical History AMA (advanced maternal age) multigravida 35+ H/O gestational diabetes in prior , currently Supervision of high-risk History of oligohydramnios in prior , currently Previous gestational diabetes mellitus, antepartum Spotting in early Hx of recurrent urinary tract infection delivery delivered History of pre-term labor History of premature rupture of membranes (PPROM) History of prior with IUGR Thyroid disorder Anemia affecting IUGR (intrauterine growth restriction) in prior , Surgical History H/O dilation and curettage H/O section Campbell teeth extracted S/P Family History Father Diabetes Grandfather Diabetes Paternal & Maternal Mother Seizures Social History adopted: Yes (13yrs old) household members: spouse and children housing: house number of children: 3 current occupational status: employed 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[employer] current 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/hazards: No pets and animals: Yes ( taking care of litter box) pets and animals: cat(s) and dog(s) history of recent travel: No sexually active: Yes Smoking Status: Never smoker alcohol intake: current alcohol intake frequency: holidays/special occasions only details: Not while substance use type: does not use well-balanced diet: daily or most days caffeine: No eating out: rarely or never during the past year weight has: remained stable what type of physical activity do you participate in: walking and weight training frequency: 3-4 times per week duration: 15-30 minutes/day fatou/christianity: Quaker seatbelt use: always do you feel safe at home: Yes additional social history: : Stephen - Management History 7 Elective abortions Hx Para 3 Spontaneous abortions 3 Hx # Term Pregnancies Ectopic pregnancies Hx # Pregnancies Multiple births # of living children 3 Past Pregnancies Del. Date Name GA/Weeks Outcome Route Bth Weight Infant Gen Labor Lgth Anesthesia Del Locatn Provider FOB 04/03/17 Antonina 40 live - full term 7lbs 12oz Fem sahil 3 days epidural [facility] Dr. Whitmore Stephen 01/10/19 Raffy 36 live - 5lbs 12oz Male 0 spinal Marisol Chen Stephen 11/19/20 5 spontaneous 08/22/21 Lieda 39 live - full term 7lbs 3oz Female spinal [facility] 07/16/23 5 spontaneous 04/21/24 11 spontaneous SM Delivery Date: 04/03/17 Last Updated by: Kim Olsen STAT c/s nuchal cord; distress Delivery Date: 01/10/19 Last Updated by: Kim Olsen PPROM, STAT C/S; IUGR; Oligo Delivery Date: 08/22/21 Last Updated by: Karina Chávez RLTCS Delivery Date: 04/21/24 Last Updated by: Alice Padilla RN D&C, measuring 9w1d HPI Heartbeat check Details: KARRI VILLAVICENCIO is a 34 year old who presents for routine OB visit. OB Visit MARGUERITE Calculator Estimated Delivery Date Method Current WG Current Estimate 05/16/25 LMP (Certain) 16w 2d Other Estimates 05/15/25 Ultrasound #1 16w 3d Expected Delivery Route/Plan plans repeat c/s Specific Issue/Plans Covid status: [] Flu vaccine: [] Tdap vaccine: [] Rhogam: [] LARC form signed: [] Problem list reviewed and updated with the most current plan of care details and appropriate orders placed. Relevant counseling for the gestational age provided. Continue routine care and follow up unless otherwise noted in visit notes/problem list details Initial Weight: Not Recorded Date -?-?-?-?-?-?-?-?-?-?-?-?- EGA Weight BP Urine Prot -?-?-?-?-?-?-?-?-?-?-?-?- Glucose FHR FuHt Pres Dilation -?-?-?-?-?-?-?-?-?-?-?-?- Effaced St Visit Note 10/13/24 -?-?-?-?-?-?-?-?-?-?-?-?- 9w 2d 163 lb 2 oz 122/74 -?-?-?-?-?-?-?-?--?-?-?-?- 175 -?-?-?-?-?-?-?-?-?-?-?-?- KW- CRL cons wit h dates. Accepts NIPT-currently on ATB for UTI. will get culture in 4 weeks. would like to RTO in 2 weeks for FHT due to hx SAB. 10/27/24 -?-?-?-?-?-?-?-?-?-?-?-?- 11w 2d 161 lb 6 oz 116/62 Nega tive -?-?-?-?-?-?-?-?-?-?-?-?- Negative 168 -?-?-?-?-?-?-?-?-?-?-?-?- SM- no vb crmapi ng 11/18/24 -?-?-?-?-?-?-?-?-?-?-?-?- 14w 3d 159 lb 116/77 Negative -?-?-?-?-?-?-?-?-?-?-?-?- Negative 148 -?-?-?-?-?-?-?-?-?-?-?-?- JV- CRL measurin g 13 weeks 6 days. no complaints today. anaotmy scan ordered 12/01/24 -?-?-?-?-?-?-?-?-?-?-?-?- 16w 2d 161 lb 8 oz 115/72 Nega tive -?-?-?-?-?-?-?-?-?-?-?-?- Negative 145 -?-?-?-?-?-?-?-?-?-?-?-?- KW- no vb/crampi ng. +fm. anatomy US scheduled. declines AFP ACOG First Trimester First Trimester: Desire for , Alcohol, Tobacco Cessation, Illicit/Recreational Drug/Substance Use, Intimate Partner Violence, Barriers to care, Unstable Housing, Communication Barriers, Environmental/Work Hazards, Anticipated Course of Care, Toxoplasmosis Precations, Use of Any medications, Sexual activity, Exercise, Dental Care, Sauna/Hot tub use, Seat Belt use, Childbirth classes/Hospital facilities, Travel, Indications for Ultrasound and Screening for Aneuploidy; Discussed ROS Const Reports system reviewed and no additional complaints, except as documented Eyes Reports system reviewed and no additional complaints, except as documented ENT Reports system reviewed and no additional complaints, except as documented Card Reports system reviewed and no additional complaints, except as documented Resp Reports system reviewed and no additional complaints, except as documented GI Reports system reviewed and no additional complaints, except as documented, Denies nausea and Denies vomiting Reports system reviewed and no additional complaints, except as documented Musc Reports system reviewed and no additional complaints, except as documented Skin/Breast Reports system reviewed and no additional complaints, except as documented Neuro Yes system reviewed and no additional complaints, except as documented Psych Reports system reviewed and no additional complaints, except as documented Endo Reports system reviewed and no additional complaints, except as documented Allen/Lymph Reports system reviewed and no additional complaints, except as documented Aller/Immun Reports system reviewed and no additional complaints, except as documented Exam Const General: cooperative, healthy appearing and no acute distress Orientation: alert, awake and oriented x3 Neck Neck: normal visual inspection and full ROM Resp Effort & Inspection: normal respiratory effort, able to speak in complete sentences and symmetric chest movement GI Inspection: normal to inspection Palpation: soft and other Other: gravid Skin General: no rashes or lesions noted Neuro General: patient alert, patient awake and patient oriented x3 Cognition: normal cognition Speech: speech normal Gait: normal gait Motor: muscle tone normal throughout Extrem General: normal to inspection and full ROM Psych Appearance: grossly normal Mental Status: mental status grossly normal Mood: congruent mood Affect: normal affect Speech and Movement: speech and movement normal Attitude: cooperative Thought Process: normal Thought Content: normal Judgment: judgment good Results POC Urinalysis 2 Dip (Clinic) Office Urine Glucose Negative Last Edit by Soniya Cornell on 12/01/24 10:46 Office Urine Protein Negative Last Edit by Soniya Cornell on 12/01/24 10:46 Coding Level of Care Code OB Routine Diagnoses UTI (urinary tract infection) during O23.40 Hx of section Z98.891 Advanced maternal age (AMA) in Supervision of high-risk O09.90 16 weeks gestation of Z3A.16 Weeks of gestation: 16 weeks Lupus anticoagulant positive R76.0 History of miscarriage Z87.59 Hypothyroidism E03.9 Anxiety F41.9 Assessment and Plan Assessment and Plan (1) UTI (urinary tract infection) during : Status: Acute Comment: at NOB. needs repeat culture in November (2) Hx of section: Status: Acute Comment: x3, plans c section (3) Advanced maternal age (AMA) in : Status: Acute (4) Supervision of high-risk : Status: Acute Comment: , MARGUERITE 05/16/25, Raffy Christopher Lieda, Stephen (5) : Status: Acute Qualifiers: Weeks of gestation: 16 weeks Qualified Code(s): Z3A.16 - 16 weeks gestation of Comment: NIPT low risk, female (6) Lupus anticoagulant positive: Status: Acute Comment: repeat antibody testing ordered, normal range in July (7) History of miscarriage: Status: Acute Comment: x3 (8) Hypothyroidism: Status: Acute Comment: needs TSH qtrimester- currently increased Levothyroxine from 137 to 150mcg. rpt in one month from 04/14 visit. order in. pt aware. (9) Anxiety: Status: Acute Comment: Zoloft adequate/stable Orders: Orders POC Urinalysis 2 Dip (Clinic) Today Plan Details Additional Comments: ACOG trimester education reviewed and updated. see problem list details for updated plan management information and see below for orders placed at this visit. GA appropriate handout given. Clinical Quality Measures Falls Risk Screening/Assistive Devices Have you fallen in the past year?: No 12/01/24 1076 <Electronically signed by Margo ramirez CNM> Date _ Margo San CNM Cosigner Signature: Date (if applicable) CC: ~ [facility] Work Phone: Progress note Author Margo San [facility] Note Date/Time February 09, 2025 9: 55am [facility] [address], [address] [place] [address] OFFICE VISIT Date of Service: 02/09/25 MR#: [id number] Acct: [id number] Name: KARRI MARTIN #: [phone] : 1990 Provider: EZEQUIEL San Age/Sex: 35/F Location: [facility] Status: Signed Intake Vital Signs 12/01/24 10:40 01/12/25 14:29 02/09/25 09:37 Height 5 ft 4 in 5 ft 4 in 5 ft 4 in Weight: 169 lb BMI 29.0 BP 111/71 Intake Visit Reasons: 26wk2d ob/glucose Chief Complaint: 26wk OB Rn Chronic Required: No Is patient in pain?: No Allergies nitrofurantoin Allergy (Mild, Verified 02/09/25 09:33) Hives Medications ?Medication ?Instructions ?Recorded ?Confirmed ?Type sertraline 25 mg tablet 25 mg PO DAILY anxiety #30 t abs 10/18/22 02/09/25 Rx levothyroxine 150 mcg tablet 150 mcg PO .COMPLEX hypot hyorid 10/03/24 02/09/25 History multivit-min no.71-iron fum 28 cap PO 10/03/24 5 History mg-folate no.1 1 mg-dha 300 mg capsule (PNV-Merrifield) cephalexin 500 mg capsule 500 mg PO QDAY #30 caps 12/2902/09/25 Rx Last Menstrual Period: 08/12/24 : No PFSH PFSH Medical History AMA (advanced maternal age) multigravida 35+ H/O gestational diabetes in prior , currently Supervision of high-risk History of oligohydramnios in prior , currently Previous gestational diabetes mellitus, antepartum Spotting in early Hx of recurrent urinary tract infection delivery delivered History of pre-term labor History of premature rupture of membranes (PPROM) History of prior with IUGR Thyroid disorder Anemia affecting IUGR (intrauterine growth restriction) in prior , Surgical History H/O dilation and curettage H/O section Campbell teeth extracted S/P Family History Father Diabetes Grandfather Diabetes Paternal & Maternal Mother Seizures Social History adopted: Yes (13yrs old) household members: spouse and children housing: house number of children: 3 current occupational status: employed 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[employer] current 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/hazards: No pets and animals: Yes ( taking care of litter box) pets and animals: cat(s) and dog(s) history of recent travel: No sexually active: Yes Smoking Status: Never smoker alcohol intake: current alcohol intake frequency: holidays/special occasions only details: Not while substance use type: does not use well-balanced diet: daily or most days caffeine: No eating out: rarely or never during the past year weight has: remained stable what type of physical activity do you participate in: walking and weight training frequency: 3-4 times per week duration: 15-30 minutes/day fatou/christianity: Quaker seatbelt use: always do you feel safe at home: Yes additional social history: : Stephen - Management History 7 Elective abortions Hx Para 3 Spontaneous abortions 3 Hx # Term Pregnancies Ectopic pregnancies Hx # Pregnancies Multiple births # of living children 3 Past Pregnancies Del. Date Name GA/Weeks Outcome Route Bth Weight Gen Labor Lgth Anesthesia Del Locatn Provider FOB 04/03/17 Antonina 40 live - full term 7lbs 12oz Fem sahil 3 days epidural [facility] Dr. Whitmore [facility] 01/10/19 Raffy 36 live - 5lbs 12oz Male 0 spinal [place] Betzya [facility] 11/19/20 5 spontaneous 08/22/21 Lieda 39 live - full term 7lbs 3oz Female spinal [facility] 07/16/23 5 spontaneous 04/21/24 11 spontaneous SM Delivery Date: 04/03/17 Last Updated by: Kim Olsen STAT c/s nuchal cord; distress Delivery Date: 01/10/19 Last Updated by: Kim Olsen PPROM, STAT C/S; IUGR; Oligo Delivery Date: 08/22/21 Last Updated by: Karina Chávez RLTCS Delivery Date: 04/21/24 Last Updated by: Alice Padilla, YIN D&C, measuring 9w1d HPI 26wk2d ob/glucose Details: KARRI VILLAVICENCIO is a 35 year old who presents for routine OB visit. OB Visit MARGUERITE Calculator Estimated Delivery Date Method Current WG Current Estimate 05/16/25 LMP (Certain) 26w 2d Other Estimates 05/15/25 Ultrasound #1 26w 3d Expected Delivery Route/Plan plans repeat c/s Specific Issue/Plans Covid status: [] Flu vaccine: [] Tdap vaccine: [] Rhogam: [] LARC form signed: [] Problem list reviewed and updated with the most current plan of care details and appropriate orders placed. Relevant counseling for the gestational age provided. Continue routine care and follow up unless otherwise noted in visit notes/problem list details Initial Weight: Not Recorded Date -?-?-?-?-?-?-?-?-?-?-?-?- EGA Weight BP Urine Prot -?-?-?-?-?-?-?-?-?-?-?-?- Glucose FHR FuHt Pres Dilation -?-?-?-?-?-?-?-?-?-?-?-?- Effaced St Visit Note 10/13/24 -?-?-?-?-?-?-?-?-?-?-?-?- 9w 2d 163 lb 2 oz 122/74 -?-?-?-?-?--?-?-?-?-?-?-?- 175 -?-?-?-?-?-?-?-?-?-?-?-?- KW- CRL cons wit h dates. Accepts NIPT-currently on ATB for UTI. will get culture in 4 weeks. would like to RTO in 2 weeks for FHT due to hx SAB. 10/27/24 -?-?-?-?-?-?-?-?-?-?-?-?- 11w 2d 161 lb 6 oz 116/62 Nega tive -?-?-?-?-?-?-?-?-?-?-?-?- Negative 168 -?-?-?-?-?-?-?-?-?-?-?-?- SM- no vb crmapi ng 11/18/24 -?-?-?-?-?-?-?-?-?-?-?-?- 14w 3d 159 lb 116/77 Negative -?-?-?-?-?-?-?-?-?-?-?-?- Negative 148 -?-?-?-?-?-?-?-?-?-?-?-?- JV- CRL measurin g 13 weeks 6 days. no complaints today. anaotmy scan ordered 12/01/24 -?-?-?-?-?-?-?-?-?-?-?-?- 16w 2d 161 lb 8 oz 115/72 Nega tive -?-?-?-?-?-?-?-?-?-?-?-?- Negative 145 -?-?-?-?-?-?-?-?-?-?-?-?- KW- no vb/crampi ng. +fm. anatomy US scheduled. declines AFP 12/18/24 -?-?-?-?-?-?-?-?-?-?-?-?- 18w 5d 162 lb 9 oz 121/70 -?-?-?-?-?-?-?-?-?-?-?-?- 145 -?-?-?-?-?-?-?-?-?-?-?-?- SM co right hand numbness and tingling, carpal tunnel like symptoms 01/06/25 -?-?-?-?-?-?-?-?-?-?-?-?- 21w 3d 165 lb 3 oz 122/73 Nega tive -?-?-?-?-?-?-?-?-?-?-?-?- Negative 140 -?-?-?-?-?-?-?-?-?-?-?-?- SM- co urinary f requency pressure, and incontinence. no vb 01/12/25 -?-?-?-?-?-?-?-?-?-?-?-?- 22w 2d 166 lb 2 oz 107/71 Nega tive -?-?-?-?-?-?-?-?-?-?-?-?- Negative 140 22 -?-?-?-?-?-?-?-?-?-?-?-?- SM- keflex order ed no vb lof goo dfm 02/09/25 -?-?-?-?-?-?-?-?-?-?-?-?- 26w 2d 169 lb 111/71 Negative -?-?-?-?-?-?-?-?-?-?-?-?- Negative 155 26 -?-?-?-?-?-?-?-?-?-?-?-?- KW- no vb/lof/ct x. normal echo. glucose today. declines LARC. would like BTO with C/S ACOG First Trimester First Trimester: Desire for , Alcohol, Tobacco Cessation, Illicit/Recreational Drug/Substance Use, Intimate Partner Violence, Barriers to care, Unstable Housing, Communication Barriers, Environmental/Work Hazards, Anticipated Course of Care, Toxoplasmosis Precations, Use of Any medications, Sexual activity, Exercise, Dental Care, Sauna/Hot tub use, Seat Belt use, Childbirth classes/Hospital facilities, Travel, Indications for Ultrasound and Screening for Aneuploidy; Discussed ROS Const Reports system reviewed and no additional complaints, except as documented Eyes Reports system reviewed and no additional complaints, except as documented ENT Reports system reviewed and no additional complaints, except as documented Card Reports system reviewed and no additional complaints, except as documented Resp Reports system reviewed and no additional complaints, except as documented GI Reports system reviewed and no additional complaints, except as documented, Denies nausea and Denies vomiting Reports system reviewed and no additional complaints, except as documented Musc Reports system reviewed and no additional complaints, except as documented Skin/Breast Reports system reviewed and no additional complaints, except as documented Neuro Yes system reviewed and no additional complaints, except as documented Psych Reports system reviewed and no additional complaints, except as documented Endo Reports system reviewed and no additional complaints, except as documented Allen/Lymph Reports system reviewed and no additional complaints, except as documented Aller/Immun Reports system reviewed and no additional complaints, except as documented Exam Const General: cooperative, healthy appearing and no acute distress Orientation: alert, awake and oriented x3 Neck Neck: normal visual inspection and full ROM Resp Effort & Inspection: normal respiratory effort, able to speak in complete sentences and symmetric chest movement GI Inspection: normal to inspection Palpation: soft and other Other: gravid Skin General: no rashes or lesions noted Neuro General: patient alert, patient awake and patient oriented x3 Cognition: normal cognition Speech: speech normal Gait: normal gait Motor: muscle tone normal throughout Extrem General: normal to inspection and full ROM Psych Appearance: grossly normal Mental Status: mental status grossly normal Mood: congruent mood Affect: normal affect Speech and Movement: speech and movement normal Attitude: cooperative Thought Process: normal Thought Content: normal Judgment: judgment good Results POC Urinalysis 2 Dip (Clinic) Office Urine Glucose Negative Last Edit by Soniya Cornell on 02/09/25 09:40 Office Urine Protein Negative Last Edit by Soniya Cornell on 02/09/25 09:40 Coding Level of Care Code OB Routine Diagnoses Recurrent urinary tract infection affecting in second trimester O23.42 Family history of congenital anomaly of cardiovascular system Z82.79 Hx of section Z98.891 Advanced maternal age (AMA) in Supervision of high-risk O09.90 26 weeks gestation of Z3A.26 Weeks of gestation: 26 weeks Lupus anticoagulant positive R76.0 History of miscarriage Z87.59 Hypothyroidism E03.9 Anxiety F41.9 Assessment and Plan Assessment and Plan (1) Recurrent urinary tract infection affecting in second trimester: Status: Acute Comment: keflex prophylaxis (2) Family history of congenital anomaly of cardiovascular system: Status: Acute Comment: Stephen's brother born with transposition of arteries, echo 22-26wk ordered (3) Hx of section: Status: Acute Comment: x3, plans c section (4) Advanced maternal age (AMA) in : Status: Acute (5) Supervision of high-risk : Status: Acute Comment: , MARGUERITE 05/16/25, girl PC Raffy Sarkar Lieda, Stephen (6) : Status: Acute Qualifiers: Weeks of gestation: 26 weeks Qualified Code(s): Z3A.26 - 26 weeks gestation of Comment: NIPT low risk, female (7) Lupus anticoagulant positive: Status: Acute Comment: repeat antibody testing ordered, normal range in July (8) History of miscarriage: Status: Acute Comment: x3 (9) Hypothyroidism: Status: Acute Comment: needs TSH qtrimester- currently increased Levothyroxine from 137 to 150mcg. rpt in one month from 04/14 visit. order in. pt aware. (10) Anxiety: Status: Acute Comment: Zoloft adequate/stable Orders: Orders POC Urinalysis 2 Dip (Clinic) Today Plan Details Additional Comments: ACOG trimester education reviewed and updated. see problem list details for updated plan management information and see below for orders placed at this visit. GA appropriate handout given. 02/09/25954 <Electronically signed by Margo ramirez CNM> Date _ Margo San CNM Cosigner Signature: Date (if applicable) CC: ~ [facility] Work Phone: Progress note Author Margo San [facility] Note Date/Time February 23, 2025 1 1:03am [facility] [address], [address] [place] [address] OFFICE VISIT Date of Service: 02/23/25 MR#: [id number] Acct: [id number] Name: KARRI MARTIN p #: [phone] : 1990 Provider: EZEQUIEL San Age/Sex: 35/F Location: [facility] [place] Status: Signed Intake Vital Signs 12/01/24 10:40 01/12/25 14:29 02/09/25 09:37 02/23/25 09:40 Height 5 ft 4 in 5 ft 4 in 5 ft 4 in 5 ft 4 in Weight: 170 lb 2 oz BMI 29.2 BP 106/71 Intake Visit Reasons: 28wk2d ob Chief Complaint: 28wk OB Rn Chronic Required: No Is patient in pain?: No Allergies nitrofurantoin Allergy (Mild, Verified 02/23/25 09:38) Hives Medications ?Medication ?Instructions ?Recorded ?Confirmed ?Type sertraline 25 mg tablet 25 mg PO DAILY anxiety #30 t abs 10/18/22 02/23/25 Rx levothyroxine 150 mcg tablet 150 mcg PO .COMPLEX hypot hyorid 10/03/24 02/23/25 History multivit-min no.71-iron fum 28 cap PO 10/03/24 5 History mg-folate no.1 1 mg-dha 300 mg capsule (PNV-Merrifield) cephalexin 500 mg capsule 500 mg PO QDAY #30 caps 12/2902/23/25 Rx Last Menstrual Period: 08/12/24 : No Have you fallen in the past year?: No PFSH PFSH Medical History AMA (advanced maternal age) multigravida 35+ H/O gestational diabetes in prior , currently Supervision of high-risk History of oligohydramnios in prior , currently Previous gestational diabetes mellitus, antepartum Spotting in early Hx of recurrent urinary tract infection delivery delivered History of pre-term labor History of premature rupture of membranes (PPROM) History of prior with IUGR Thyroid disorder Anemia affecting IUGR (intrauterine growth restriction) in prior , Surgical History H/O dilation and curettage H/O section [place] teeth extracted S/P Family History Father Diabetes Grandfather Diabetes Paternal & Maternal Mother Seizures Social History adopted: Yes (13yrs old) household members: spouse and children housing: house number of children: 3 current occupational status: employed 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[employer] current 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/hazards: No pets and animals: Yes ( taking care of litter box) pets and animals: cat(s) and dog(s) history of recent travel: No sexually active: Yes Smoking Status: Never smoker alcohol intake: current alcohol intake frequency: holidays/special occasions only details: Not while substance use type: does not use well-balanced diet: daily or most days caffeine: No eating out: rarely or never during the past year weight has: remained stable what type of physical activity do you participate in: walking and weight training frequency: 3-4 times per week duration: 15-30 minutes/day fatou/christianity: Quaker seatbelt use: always do you feel safe at home: Yes additional social history: : Stephen - Management History 7 Elective abortions Hx Para 3 Spontaneous abortions 3 Hx # Term Pregnancies Ectopic pregnancies Hx # Pregnancies Multiple births # of living children 3 Past Pregnancies Del. Date Name GA/Weeks Outcome Route Bth Weight Infant Gen Labor Lgth Anesthesia Del Locatn Provider FOB 04/03/17 Antonina 40 live - full term 7lbs 12oz Fem sahil 3 days epidural [facility] Dr[facility] Whit[facility] 01/10/19 Raffy 36 live - 5lbs 12oz Male 0 spinal [place] Betzya [facility] 11/19/20 5 spontaneous 08/22/21 Lieda 39 live - full term 7lbs 3oz Female spinal [facility] 07/16/23 5 spontaneous 04/21/24 11 spontaneous SM Delivery Date: 04/03/17 Last Updated by: Kim Olsen STAT c/s nuchal cord; distress Delivery Date: 01/10/19 Last Updated by: Kim Olsen PPROM, STAT C/S; IUGR; Oligo Delivery Date: 08/22/21 Last Updated by: Karina Chávez RLTCS Delivery Date: 04/21/24 Last Updated by: Alice Padilla RN D&C, measuring 9w1d HPI 28wk2d ob Details: KARRI VILLAVICENCIO is a 35 year old who presents for routine OB visit. OB Visit MARGUERITE Calculator Estimated Delivery Date Method Current WG Current Estimate 05/16/25 LMP (Certain) 28w 2d Other Estimates 05/15/25 Ultrasound #1 28w 3d Expected Delivery Route/Plan plans repeat c/s Specific Issue/Plans Covid status: [] Flu vaccine: [] Tdap vaccine: [] Rhogam: [] LARC form signed: [] Problem list reviewed and updated with the most current plan of care details and appropriate orders placed. Relevant counseling for the gestational age provided. Continue routine care and follow up unless otherwise noted in visit notes/problem list details Initial Weight: Not Recorded Date -?-?-?-?-?-?-?-?-?-?-?-?- EGA Weight BP Urine Prot -?-?-?-?-?-?-?-?-?-?-?-?- Glucose FHR FuHt Pres Dilation -?-?-?-?-?-?-?-?-?-?-?-?- Effaced St Visit Note 10/13/24 -?-?-?-?-?-?-?-?-?-?-?-?- 9w 2d 163 lb 2 oz 122/74 -?-?-?-?-?-?-?-?-?-?-?-?- 175 -?-?-?-?-?-?-?-?-?-?-?-?- KW- CRL cons wit h dates. Accepts NIPT-currently on ATB for UTI. will get culture in 4 weeks. would like to RTO in 2 weeks for FHT due to hx SAB. 10/27/24 -?-?-?-?-?-?-?-?-?-?-?-?- 11w 2d 161 lb 6 oz 116/62 Nega tive -?-?-?-?-?-?-?-?-?-?-?-?- Negative 168 -?-?-?-?-?-?-?-?-?-?-?-?- SM- no vb crmapi ng 11/18/24 -?-?-?-?-?-?-?-?-?-?-?-?- 14w 3d 159 lb 116/77 Negative -?-?-?-?-?-?-?-?-?-?-?-?- Negative 148 -?-?-?-?-?-?-?-?-?-?-?-?- JV- CRL measurin g 13 weeks 6 days. no complaints today. anaotmy scan ordered 12/01/24 -?-?-?-?-?-?-?-?-?-?-?-?- 16w 2d 161 lb 8 oz 115/72 Nega tive -?-?-?-?-?-?-?-?-?-?-?-?- Negative 145 -?-?-?-?-?-?-?-?-?-?-?-?- KW- no vb/sue ng. +fm. anatomy US scheduled. declines AFP 12/18/24 -?-?-?-?-?-?-?-?-?-?-?-?- 18w 5d 162 lb 9 oz 121/70 -?-?-?-?-?-?-?-?-?-?-?-?- 145 -?-?-?-?-?-?-?-?-?-?-?-?- SM co right hand numbness and tingling, carpal tunnel like symptoms 01/06/25 -?-?-?-?-?--?-?-?-?-?-?-?- 21w 3d 165 lb 3 oz 122/73 Nega tive -?-?-?-?-?-?-?-?-?-?-?-?- Negative 140 -?-?-?-?-?-?-?-?-?-?-?-?- SM- co urinary f requency pressure, and incontinence. no vb 01/12/25 -?-?-?-?-?-?-?-?-?-?-?-?- 22w 2d 166 lb 2 oz 107/71 Nega tive -?-?-?-?-?-?-?-?-?-?-?-?- Negative 140 22 -?-?-?-?-?-?-?-?-?-?-?-?- SM- keflex order ed no vb lof goo dfm 02/09/25 -?-?-?-?-?-?-?-?-?-?-?-?- 26w 2d 169 lb 111/71 Negative -?-?-?-?-?--?-?-?-?-?-?-?- Negative 155 26 -?-?-?-?-?-?-?-?-?-?-?-?- KW- no vb/lof/ct x. normal echo. glucose today. declines LARC. would like BTO with C/S 02/23/25 -?-?-?-?-?-?-?-?-?-?-?-?- 28w 2d 170 lb 2 oz 106/71 Nega tive -?-?-?-?-?-?-?-?-?-?-?-?- Negative 140 29 -?-?-?-?-?-?-?-?-?-?-?-?- KW- no vb/lof/ct x. good fm. is on ATB for resp infection. Has c/s scheduled. tdap next visit. LARC done. ACOG First Trimester First Trimester: Desire for , Alcohol, Tobacco Cessation, Illicit/Recreational Drug/Substance Use, Intimate Partner Violence, Barriers to care, Unstable Housing, Communication Barriers, Environmental/Work Hazards, Anticipated Course of Care, Toxoplasmosis Precations, Use of Any medications, Sexual activity, Exercise, Dental Care, Sauna/Hot tub use, Seat Belt use, Childbirth classes/Hospital facilities, Travel, Indications for Ultrasound and Screening for Aneuploidy; Discussed ROS Const Reports system reviewed and no additional complaints, except as documented Eyes Reports system reviewed and no additional complaints, except as documented ENT Reports system reviewed and no additional complaints, except as documented Card Reports system reviewed and no additional complaints, except as documented Resp Reports system reviewed and no additional complaints, except as documented GI Reports system reviewed and no additional complaints, except as documented, Denies nausea and Denies vomiting Reports system reviewed and no additional complaints, except as documented Musc Reports system reviewed and no additional complaints, except as documented Skin/Breast Reports system reviewed and no additional complaints, except as documented Neuro Yes system reviewed and no additional complaints, except as documented Psych Reports system reviewed and no additional complaints, except as documented Endo Reports system reviewed and no additional complaints, except as documented Allen/Lymph Reports system reviewed and no additional complaints, except as documented Aller/Immun Reports system reviewed and no additional complaints, except as documented Exam Const General: cooperative, healthy appearing and no acute distress Orientation: alert, awake and oriented x3 Neck Neck: normal visual inspection and full ROM Resp Effort & Inspection: normal respiratory effort, able to speak in complete sentences and symmetric chest movement GI Inspection: normal to inspection Palpation: soft and other Other: gravid Skin General: no rashes or lesions noted Neuro General: patient alert, patient awake and patient oriented x3 Cognition: normal cognition Speech: speech normal Gait: normal gait Motor: muscle tone normal throughout Extrem General: normal to inspection and full ROM Psych Appearance: grossly normal Mental Status: mental status grossly normal Mood: congruent mood Affect: normal affect Speech and Movement: speech and movement normal Attitude: cooperative Thought Process: normal Thought Content: normal Judgment: judgment good Results POC Urinalysis 2 Dip (Clinic) Office Urine Glucose Negative Last Edit by Soniya Cornell on 02/23/25 09:49 Office Urine Protein Negative Last Edit by Soniya Cornell on 02/23/25 09:49 Coding Level of Care Code OB Routine Diagnoses Mild anemia D64.9 Recurrent urinary tract infection affecting in second trimester O23.42 Family history of congenital anomaly of cardiovascular system Z82.79 Hx of section Z98.891 Advanced maternal age (AMA) in Supervision of high-risk O09.90 28 weeks gestation of Z3A.28 Weeks of gestation: 28 weeks 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 (5) Advanced maternal age (AMA) in : Status: Acute (6) Supervision of high-risk : Status: Acute Comment: , MARGUERITE 05/16/25, girl PC Raffy Sarkar Lieda, Stephen (7) : Status: Acute Qualifiers: Weeks of gestation: 28 weeks Qualified Code(s): Z3A.28 - 28 weeks gestation of Comment: NIPT low risk, female (8) Lupus anticoagulant positive: Status: Acute Comment: repeat antibody testing ordered, normal range in July (9) History of miscarriage: Status: Acute Comment: x3 (10) Hypothyroidism: Status: Acute Comment: needs TSH qtrimester- currently increased Levothyroxine from 137 to 150mcg. rpt in one month from 04/14 visit. order in. pt aware. (11) Anxiety: Status: Acute Comment: Zoloft adequate/stable Orders: Orders POC Urinalysis 2 Dip (Clinic) Today Plan Details Additional Comments: ACOG trimester education reviewed and updated. see problem list details for updated plan management information and see below for orders placed at this visit. GA appropriate handout given. Clinical Quality Measures Falls Risk Screening/Assistive Devices Have you fallen in the past year?: No 02/23/25 1003 <Electronically signed by Margo ramirez CNM> Date _ Margo San CNM Cosigner Signature: Date (if applicable) CC: ~ [facility] Work Phone: Reason for referral (narrative)No reason for referral information available[facility] Work Phone: Hospital Course * Olamide Morales MD - 01/13/2019 9:34 AM EDT Physician Discharge Summary Patient ID: Karri Villavicencio [id number] 28 y.o. 1990 Admit date: 01/10/2019 Discharge date and time: 01/13/19 Admitting Physician: Lavonne Chirinos MD Discharge Physician: Andrew Admission Diagnoses: affected by growth restriction [O36.5990] Discharge Diagnoses: s/p repeat CD Admission Condition: good Discharged Condition: good Indication for Admission: oligohydramnios and growth restriction Hospital Course: Patient underwent repeat CD on 01/10. Hospital course uncomplicated. Consults: none Significant Diagnostic Studies: labs: See below. Still pending Outstanding Order Results Date and Time Order Name Status Description 01/11/2019 050 Lupus Anticoagulant In process 01/11/2019 050 Beta-2 GlycoProtein 1 Ab,IGG & IGM In process 01/11/2019 050 Cardiolipin Ab IgG, IgM, IgA In process 01/11/2019 050 JAMI In process Treatments: surgery: Repeat CD Discharge Exam: BP 117/67 Pulse 68 Temp 97.6 F (36.4 C) (Temporal) Resp 18 Ht 5' 4" (1.626 m) Wt 176 lb (79.8 kg) [...] most local grocery stores, pharmacies, and chain [employer]-stores. ? If you have any questions about [...] of ups and downs, but lots of amairlis as well. FOLLOW-UP: Your follow-up care is a doyle part of your treatment and safety. Follow-up with your OB doctor in {Time; 1 to 12 weeks:73793} weeks or as specified by your physician. Be sure to make and go to all appointments, and call your doctor if you are having problems. It's also a good idea to know your test results and keep a list of the medicines you take. BLEEDING Vaginal bleeding will decrease in amount over the next few weeks. 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 Be sure to make and go to all appointments, and call your doctor if you are having problems. It's also a good idea to know your test results and keep a list of the medicines you take. BLEEDING Vaginal bleeding will decrease in amount over the next few weeks. 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 Ifyou or someone around baby smokes [...] Circumcision not performed per patient due to size. Her vital signs are stable and no sign of infection or intraabdominal pathology. Stable for discharge today. Follow up for incision check with Dr. Burkett in 1 week. * Aden Amin DO - 01/13/2019 5:57 AM EDT POST DAY # 3 Karir Villavicencio is a 28 y.o. female This patient [...] controlled yes. Vital Signs: Vitals: 01/11/19 1726 01/11/196 01/12/19 0811 01/12/192023 BP: 121/63 (!) 102/55 [...] NEG NA Final Comment: Test Performed by [facility], [address] [place] [id number] No results found for: [facility] DELIVERY [...] FVL+Prothrombin (heterozygous), Antithrombin III, APLS Assessment/Plan: 1. Karri Villavicencio is a POD # 3 s/p RLTCS @ 36w4d 2/2 FGR and Oligo - Doing well, VSS - Male - Encourage ambulation and use of incentive spirometer - post-op hgb 10.7 2. PPH - EBL 700ml but QBL 1110ml - brisk bleeding noted at right inferior hysterotomy angle requiring figure of eight and then [place] - no uterine atony noted and no [...] Reddy RN - 01/12/2019 9:01 AM EDT Infant continues to nurse well, swallowing frequently. Output is adequate. Reviewed feeding patterns for late , output parameters, introducing a bottle and pacifier after bf is established. Encouraged mothers group for weight checks. Shown section of "Taking Care of Yourself and Baby" booklet.Reviewed: output parameters, contact information, and bf mothers group. Encouraged patient to call for assistance prn. Patient verbalized understanding. * Lavonne Chirinos MD - 01/11/2019 6:55 PM EDT POST DAY # 2 Karri Villavicencio is a 28 y.o. female This patient was seen & examined today. Her was complicated by: Patient Active Problem List Diagnosis affected by growth restriction She is doing well today without any complaints. Vital Signs: Vitals: 01/11/19 0338 01/11/19 0906 01/11/19 1726 01/11/192025 BP: (!) 100/50 (!) 108/49 121/63 (!) [...] place, clean, dry and intact Assessment/Plan: 1. Karri Villavicencio is a POD # 2 s/p RLTCS @36w4d 2/2 FGR and Oligo - Doing well, VSS - Male - Encourage ambulation and use of incentive spirometer - post-op hgb 10.7 2. PPH - EBL 700ml but QBL 1110ml - brisk bleeding noted at right inferior hysterotomy angle requiring figure of eight and then [place] - no uterine atony noted and no [...] Prophylaxis: Not Indicated 7. Continue current care Karri was seen this AM by me. She [...] - 01/11/2019 9:44 AM EDT Mom states finished the feeding, nursed well for 15 [...] 6:13 AM EDT POST DAY # 1 Karri Villavicencio is a 28 y.o. female This patient [...] Weight: 176 lb (79.8 kg) Height: 5' 4" (1.626 m) Urine Input & Output last 24hrs: Intake/Output Summary (Last 24 hours) at 01/11/2019 4309 Last data filed at 01/10/2019 2255 Gross [...] NEG NA Final Comment: Test Performed by [facility], [address] [place] [id number] No results found for: [facility]OR DELIVERY [...] (homozygous), FVL+Prothrombin (heterozygous), Antithrombin III, APLS Assessment/Plan: 1Huyen Villavicencio is a POD # 1 s/p RLTCS @36w4d 2/2 FGR and Oligo - Doing well, VSS - Male - Encourage ambulation and use of incentive spirometer - D/C pena catheter and saline lock IV on POD #1 - post-op hgb 10.7 2. PPH - EBL 700ml but QBL 1110ml - brisk bleeding noted at right inferior hysterotomy angle requiring figure of eight and then [place] - no uterine atony noted and no [...] to reposition in bed well. Binder applied. Pena emptied. Pt sat up in bed to eat meal tray. documented in this encounter Assessments Diagnosis affected by growth restriction Advance Directives No Advanced Directives Records FoundDocuments on File Type Date Recorded Patient Pill Maker Expl anation Advance Directives and Living Will Power of Auto Body Detailer Latest Code Status on File Code Status Date Activated Date Inactivated Comments Full Code 01/11/2019 1:06 AM Full Code 01/10/2019 4:10 PM 01/11/2019 1:06 AM Advance Directive Response Recorded Date/ Time Living Will Yes February 06 6:39am Power of Auto Body Detailer Yes February 06 6:39am Advance Directive Response Recorded Date/ Time Living Will Yes August 22, 2021 5:47am Power of Auto Body Detailer Yes August 22 5:47am Advance Directive Response Recorded Date/ Time Living Will No July 16, 2023 7:19pm Power of Auto Body Detailer No July 15 7:19pm Advance Directive Response Recorded Date/ Time Living Will No July 16, 2023 7:19pm Do you have a Healthcare Power of Auto Body Detailer? No July 16, 2023 7:19pm Living Will No April 20 9:38pm Do you have a Healthcare Power of Auto Body Detailer? 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 32 WK OB 34 WK OB 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 36WK OB 36 WEEK GROWTH Reason for Visit Anemia affecting pre gnancy Anxiety Family history of congenital anomaly of cardiovascular system H/O section Hypothyroidism IUGR (intrauterine growth restriction) in prior , Marginal insertion of umbilical cord Supervision of other normal UTI in History of oligohydramnios in prior , currently Anemia affecting Anxiety Family history of congenital anomaly of cardiovascular system H/O section Hypothyroidism IUGR (intrauterine growth restriction) in prior , Marginal insertion of umbilical cord Supervision of other normal UTI in History of oligohydramnios in prior , currently Anemia affecting Anxiety Family history of congenital anomaly of cardiovascular system H/O section Hypothyroidism IUGR (intrauterine growth restriction) in prior , Marginal insertion of umbilical cord Supervision of other normal UTI in Abnormal glucose affecting History of oligohydramnios in prior , currently Anemia affecting Anxiety Family history of congenital anomaly of cardiovascular system Gestational diabetes H/O section Hypothyroidism IUGR (intrauterine growth restriction) in prior , Marginal insertion of umbilical cord Supervision of other normal UTI in Abnormal glucose affecting History of oligohydramnios in prior , currently Gestational diabetes Anemia affecting Anxiety Family history of congenital anomaly of cardiovascular system Gestational diabetes H/O section Hypothyroidism IUGR (intrauterine growth restriction) in prior , Marginal insertion of umbilical cord Supervision of other normal UTI in History of oligohydramnios in prior , currently Anemia affecting Anxiety Family history of congenital anomaly of cardiovascular system Gestational diabetes H/O section Hypothyroidism IUGR (intrauterine growth restriction) in prior , Marginal insertion of umbilical cord Supervision of other normal UTI in Anemia affecting Anxiety Family history of congenital anomaly of cardiovascular system Gestational diabetes H/O section Hypothyroidism IUGR (intrauterine growth restriction) in prior , Marginal insertion of umbilical cord UTI in Chief Complaint 20 WK OB 24 WK OB E ORDERS 28 WK OB/GLUCOSE Abnormal glucose 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, 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, 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 32 WK OB 34 WK OB 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 36WK OB 36 WEEK GROWTH 36 WK OB Reason for Visit Anemia affecting pre gnancy Anxiety Family history of congenital anomaly of cardiovascular system H/O section Hypothyroidism IUGR (intrauterine growth restriction) in prior , Marginal insertion of umbilical cord Supervision of other normal UTI in History of oligohydramnios in prior , currently Anemia affecting Anxiety Family history of congenital anomaly of cardiovascular system H/O section Hypothyroidism IUGR (intrauterine growth restriction) in prior , Marginal insertion of umbilical cord Supervision of other normal UTI in History of oligohydramnios in prior , currently Anemia affecting Anxiety Family history of congenital anomaly of cardiovascular system H/O section Hypothyroidism IUGR (intrauterine growth restriction) in prior , Marginal insertion of umbilical cord Supervision of other normal UTI in Abnormal glucose affecting History of oligohydramnios in prior , currently Anemia affecting Anxiety Family history of congenital anomaly of cardiovascular system Gestational diabetes H/O section Hypothyroidism IUGR (intrauterine growth restriction) in prior , Marginal insertion of umbilical cord Supervision of other normal UTI in Abnormal glucose affecting History of oligohydramnios in prior , currently Gestational diabetes Anemia affecting Anxiety Family history of congenital anomaly of cardiovascular system Gestational diabetes H/O section Hypothyroidism IUGR (intrauterine growth restriction) in prior , Marginal insertion of umbilical cord Supervision of other normal UTI in History of oligohydramnios in prior , currently Anemia affecting Anxiety Family history of congenital anomaly of cardiovascular system Gestational diabetes H/O section Hypothyroidism IUGR (intrauterine growth restriction) in prior , Marginal insertion of umbilical cord Supervision of other normal UTI in Anemia affecting Anxiety Family history of congenital anomaly of cardiovascular system Gestational diabetes H/O section Hypothyroidism IUGR (intrauterine growth restriction) in prior , Marginal insertion of umbilical cord UTI in Anemia affecting Anxiety Family history of congenital anomaly of cardiovascular system Gestational diabetes H/O section Hypothyroidism IUGR (intrauterine growth restriction) in prior , Marginal insertion of umbilical cord Supervision of other normal UTI in Chief Complaint 24 WK OB E ORDERS 28 WK OB/GLUCOSE Abnormal glucose 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, 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, 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 32 WK OB 34 WK OB 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 36WK OB 36 WEEK GROWTH 36 WK OB 37WK OB REPEAT C SECTION REPEAT C SECTION REPEAT C SECTION Reason for Visit Anxiety Hypothyroidism Anemia affecting Family history of congenital anomaly of cardiovascular system H/O section History of oligohydramnios in prior , currently IUGR (intrauterine growth restriction) in prior , Marginal insertion of umbilical cord Supervision of other normal UTI in Anxiety Hypothyroidism Abnormal glucose affecting Anemia affecting Family history of congenital anomaly of cardiovascular system H/O section History of oligohydramnios in prior , currently IUGR (intrauterine growth restriction) in prior , Marginal insertion of umbilical cord Supervision of other normal UTI in Anxiety Gestational diabetes Hypothyroidism Abnormal glucose affecting Anemia affecting Family history of congenital anomaly of cardiovascular system H/O section History of oligohydramnios in prior , currently IUGR (intrauterine growth restriction) in prior , Marginal insertion of umbilical cord Supervision of other normal UTI in Gestational diabetes Anxiety Gestational diabetes Hypothyroidism Anemia affecting Family history of congenital anomaly of cardiovascular system H/O section History of oligohydramnios in prior , currently IUGR (intrauterine growth restriction) in prior , Marginal insertion of umbilical cord Supervision of other normal UTI in Anxiety Gestational diabetes Hypothyroidism Anemia affecting Family history of congenital anomaly of cardiovascular system H/O section IUGR (intrauterine growth restriction) in prior , Marginal insertion of umbilical cord Supervision of other normal UTI in Anxiety Gestational diabetes Hypothyroidism Anemia affecting Family history of congenital anomaly of cardiovascular system H/O section IUGR (intrauterine growth restriction) in prior , Marginal insertion of umbilical cord UTI in Anxiety Gestational diabetes Hypothyroidism Anemia affecting Family history of congenital anomaly of cardiovascular system H/O section IUGR (intrauterine growth restriction) in prior , Marginal insertion of umbilical cord Supervision of other normal UTI in Anxiety Gestational diabetes Hypothyroidism Anemia affecting Family history of congenital anomaly of cardiovascular system H/O section IUGR (intrauterine growth restriction) in prior , Marginal insertion of umbilical cord Supervision of other normal UTI in Anxiety delivery delivered Gestational diabetes Hypothyroidism Anemia affecting Family history of congenital anomaly of cardiovascular system H/O section IUGR (intrauterine growth restriction) in prior , Marginal insertion of umbilical cord Supervision of other normal UTI in Chief Complaint 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 Chief Complaint 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 F/U Miscarriage Reason for Visit Incomplete miscarria ge Chief Complaint Admit Date New OB, LMP 02/01, MARGUERITE 11/08/24 March 312023 2:47pm VAGINAL BLEEDING WITH April 20, 2024 7:56pm RESCAN April 21, 2024 7:58am D&C FU May 19, 2024 1 1:06am Reason for Visit Admit Date Anxiety March 31, 2024 2:47pm History of miscarriage March 31 2:47pm Hypothyroidism March 31, 2024 2:47pm History of oligohydramnios i n prior , currently March 31, 2024 2:47pm History of pre-term labor March 31, 2024 2:47pm History of premature rupture of membranes (PPROM) March 31, 2024 2:47pm History of prior with IUGR new born March 31, 2024 2:47pm AMA (advanced maternal age) multigravida 35+ March 31, 2024 2:47pm H/O section March 31, 2024 2:47pm H/O gestational diabetes in prior , currently March 31, 2024 2:47pm March 31, 2024 2:47pm Supervision of high-risk Novem 2023 2:47pm Anxiety April 21, 2024 7:58am History of miscarriage April 21 7:58am Hypothyroidism April 21, 2024 7:58am UTI in April 21, 2024 7:58am History of oligohydramnios i n prior , currently April 21, 2024 7:58am History of pre-term labor April 21, 2024 7:58am History of premature rupture of membranes (PPROM) April 21, 2024 7:58am History of prior with IUGR new born April 21, 2024 7:58am AMA (advanced maternal age) multigravida 35+ April 21, 2024 7:58am H/O section April 21, 2024 7:58am H/O gestational diabetes in prior , currently April 21, 2024 7:58am Missed April 21, 2024 7:58am April 21, 2024 7:58am Supervision of high-risk Decem 2023 7:58am Missed April 21, 2024 11:29am History of miscarriage May 19 11:06am Hypothyroidism May 19, 2024 1 1:06am Lupus anticoagulant positive May 11:06am Chief Complaint Admit Date *EST* NOB LMP 45, MARGUERITE 05/16October 13 8:19am Reason for Visit Admit Date Advanced maternal age (AMA) in October 13, 2024 8:19am Anxiety October 13, 2024 8:19a m History of miscarriage October 13, 2024 8: 19am Hx of section October 13, 2024 8: 19am Hypothyroidism October 13, 2024 8:19a m Lupus anticoagulant positive October 13, 025 8:19am October 13, 2024 8:19a m Supervision of high-risk October 13, 2024 8:19am UTI (urinary tract infection) during pre gnancy October 13, 2024 8:19am Chief Complaint Admit Date *EST* NOB LMP 4/5, MARGUERITE 05/16October 13 8:19am Heartbeat Check October 27, 2024 10:5 5am Reason for Visit Admit Date Advanced maternal age (AMA) in October 13, 2024 8:19am Anxiety October 13, 2024 8:19a m History of miscarriage October 13, 2024 8: 19am Hx of section October 13, 2024 8: 19am Hypothyroidism October 13, 2024 8:19a m Lupus anticoagulant positive October 13 025 8:19am October 13, 2024 8:19a m Supervision of high-risk October 13, 2024 8:19am UTI (urinary tract infection) during pre gnancy October 13, 2024 8:19am Advanced maternal age (AMA) in October 27, 2024 10:55am Anxiety October 27, 2024 10:5 5am History of miscarriage October 27, 2024 1 0:55am Hx of section October 27, 2024 1 0:55am Hypothyroidism October 27, 2024 10:5 5am Lupus anticoagulant positive October 27, 2024 10:55am October 27, 2024 10:5 5am Supervision of high-risk October 27, 2024 10:55am UTI (urinary tract infection) during pre gnancy October 27, 2024 10:55am Chief Complaint Admit Date *EST* NOB LMP 08/09, MARGUERITE 05/16October 13 8:19am Heartbeat Check October 27, 2024 10:5 5am 13wk OB November 18, 2024 9:46 am Reason for Visit Admit Date Advanced maternal age (AMA) in October 13, 2024 8:19am Anxiety October 13, 2024 8:19a m History of miscarriage October 13, 2024 8: 19am Hx of section October 13, 2024 8: 19am Hypothyroidism October 13, 2024 8:19a m Lupus anticoagulant positive October 13 8:19am October 13, 2024 8:19a m Supervision of high-risk October 13, 2024 8:19am UTI (urinary tract infection) during pre gnancy October 13, 2024 8:19am Advanced maternal age (AMA) in October 27, 2024 10:55am Anxiety October 27, 2024 10:5 5am History of miscarriage October 27, 2024 1 0:55am Hx of section October 27, 2024 1 0:55am Hypothyroidism October 27, 2024 10:5 5am Lupus anticoagulant positive October 27, 2024 10:55am October 27, 2024 10:5 5am Supervision of high-risk October 27, 2024 10:55am UTI (urinary tract infection) during pre gnancy October 27, 2024 10:55am Advanced maternal age (AMA) in November 18, 2024 9:46am Anxiety November 18, 2024 9:46 am History of miscarriage November 18, 2024 9 :46am Hx of section November 18, 2024 9 :46am Hypothyroidism November 18, 2024 9:46 am Lupus anticoagulant positive November 18, 2024 9:46am November 18, 2024 9:46 am Supervision of high-risk November 18, 2024 9:46am UTI (urinary tract infection) during pre gnancy November 18, 2024 9:46am Chief Complaint Admit Date *EST* NOB LMP 08/09, MARGUERITE 05/16October 13 8:19am Heartbeat Check October 27, 2024 10:5 5am 13wk OB November 18, 2024 9:46 am Heartbeat check December 01, 2024 10:3 5am Reason for Visit Admit Date Advanced maternal age (AMA) in October 13, 2024 8:19am Anxiety October 13, 2024 8:19a m History of miscarriage October 13, 2024 8: 19am Hx of section October 13, 2024 8: 19am Hypothyroidism October 13, 2024 8:19a m Lupus anticoagulant positive October 13, 025 8:19am October 13, 2024 8:19a m Supervision of high-risk October 13, 2024 8:19am UTI (urinary tract infection) during pre gnancy October 13, 2024 8:19am Advanced maternal age (AMA) in October 27, 2024 10:55am Anxiety October 27, 2024 10:5 5am History of miscarriage October 27, 2024 1 0:55am Hx of section October 27, 2024 1 0:55am Hypothyroidism October 27, 2024 10:5 5am Lupus anticoagulant positive October 27, 2024 10:55am October 27, 2024 10:5 5am Supervision of high-risk October 27, 2024 10:55am UTI (urinary tract infection) during pre gnancy October 27, 2024 10:55am Advanced maternal age (AMA) in November 18, 2024 9:46am Anxiety November 18, 2024 9:46 am History of miscarriage November 18, 2024 9 :46am Hx of section November 18, 2024 9 :46am Hypothyroidism November 18, 2024 9:46 am Lupus anticoagulant positive November 18, 2024 9:46am November 18, 2024 9:46 am Supervision of high-risk November 18, 2024 9:46am UTI (urinary tract infection) during pre gnancy November 18, 2024 9:46am Advanced maternal age (AMA) in December 01, 2024 10:35am Anxiety December 01, 2024 10:3 5am History of miscarriage December 01, 2024 1 0:35am Hx of section December 01, 2024 1 0:35am Hypothyroidism December 01, 2024 10:3 5am Lupus anticoagulant positive December 01, 2024 10:35am December 01, 2024 10:3 5am Supervision of high-risk December 01, 2024 10:35am UTI (urinary tract infection) during pre gnancy December 01, 2024 10:35am Chief Complaint Admit Date *EST* NOB LMP 08/09, MARGUERITE 05/16October 13 8:19am Heartbeat Check October 27, 2024 10:5 5am 13wk OB November 18, 2024 9:46 am Heartbeat check December 01, 2024 10:3 5am 17 WK OB December 18, 2024 2: 08pm Reason for Visit Admit Date Advanced maternal age (AMA) in October 13, 2024 8:19am Anxiety October 13, 2024 8:19a m History of miscarriage October 13, 2024 8: 19am Hx of section October 13, 2024 8: 19am Hypothyroidism October 13, 2024 8:19a m Lupus anticoagulant positive October 13, 8:19am October 13, 2024 8:19a m Supervision of high-risk October 13, 2024 8:19am UTI (urinary tract infection) during pre gnancy October 13, 2024 8:19am Advanced maternal age (AMA) in October 27, 2024 10:55am Anxiety October 27, 2024 10:5 5am History of miscarriage October 27, 2024 1 0:55am Hx of section October 27, 2024 1 0:55am Hypothyroidism October 27, 2024 10:5 5am Lupus anticoagulant positive October 27, 2024 10:55am October 27, 2024 10:5 5am Supervision of high-risk October 27, 2024 10:55am UTI (urinary tract infection) during pre gnancy October 27, 2024 10:55am Advanced maternal age (AMA) in November 18, 2024 9:46am Anxiety November 18, 2024 9:46 am History of miscarriage November 18, 2024 9 :46am Hx of section November 18, 2024 9 :46am Hypothyroidism November 18, 2024 9:46 am Lupus anticoagulant positive November 18, 2024 9:46am November 18, 2024 9:46 am Supervision of high-risk November 18, 2024 9:46am UTI (urinary tract infection) during pre gnancy November 18, 2024 9:46am Advanced maternal age (AMA) in December 01, 2024 10:35am Anxiety December 01, 2024 10:3 5am History of miscarriage December 01, 2024 1 0:35am Hx of section December 01, 2024 1 0:35am Hypothyroidism December 01, 2024 10:3 5am Lupus anticoagulant positive December 01, 2024 10:35am December 01, 2024 10:3 5am Supervision of high-risk December 01, 2024 10:35am UTI (urinary tract infection) during pre gnancy December 01, 2024 10:35am Advanced maternal age (AMA) in December 18, 2024 2:08pm Anxiety December 18, 2024 2: 08pm History of miscarriage December 18, 2024 2:08pm Hx of section December 18, 2024 2:08pm Hypothyroidism December 18, 2024 2: 08pm Lupus anticoagulant positive December 2:08pm December 18, 2024 2: 08pm Supervision of high-risk [facility] 2024 2:08pm UTI (urinary tract infection) during pre gnancy December 18, 2024 2:08pm Chief Complaint Admit Date *EST* NOB LMP 4/5, MARGUERITE 05/16October 13 8:19am Heartbeat Check October 27, 2024 10:5 5am 13wk OB November 18, 2024 9:46 am Heartbeat check December 01, 2024 10:3 5am 17 WK OB December 18, 2024 2: 08pm OB, H/A, incontinence, UA & Culture Sept ember 2024 3:54pm Reason for Visit Admit Date Advanced maternal age (AMA) in October 13, 2024 8:19am Anxiety October 13, 2024 8:19a m History of miscarriage October 13, 2024 8: 19am Hx of section October 13, 2024 8: 19am Hypothyroidism October 13, 2024 8:19a m Lupus anticoagulant positive October 13, 025 8:19am October 13, 2024 8:19a m Supervision of high-risk October 13, 2024 8:19am UTI (urinary tract infection) during pre gnancy October 13, 2024 8:19am Advanced maternal age (AMA) in October 27, 2024 10:55am Anxiety October 27, 2024 10:5 5am History of miscarriage October 27, 2024 1 0:55am Hx of section October 27, 2024 1 0:55am Hypothyroidism October 27, 2024 10:5 5am Lupus anticoagulant positive October 27, 2024 10:55am October 27, 2024 10:5 5am Supervision of high-risk October 27, 2024 10:55am UTI (urinary tract infection) during pre gnancy October 27, 2024 10:55am Advanced maternal age (AMA) in November 18, 2024 9:46am Anxiety November 18, 2024 9:46 am History of miscarriage November 18, 2024 9 :46am Hx of section November 18, 2024 9 :46am Hypothyroidism November 18, 2024 9:46 am Lupus anticoagulant positive November 18, 2024 9:46am November 18, 2024 9:46 am Supervision of high-risk November 18, 2024 9:46am UTI (urinary tract infection) during pre gnancy November 18, 2024 9:46am Advanced maternal age (AMA) in December 01, 2024 10:35am Anxiety December 01, 2024 10:3 5am History of miscarriage December 01, 2024 1 0:35am Hx of section December 01, 2024 1 0:35am Hypothyroidism December 01, 2024 10:3 5am Lupus anticoagulant positive December 01, 2024 10:35am December 01, 2024 10:3 5am Supervision of high-risk December 01, 2024 10:35am UTI (urinary tract infection) during pre gnancy December 01, 2024 10:35am Advanced maternal age (AMA) in December 18, 2024 2:08pm Anxiety December 18, 2024 2: 08pm History of miscarriage December 18, 2024 2:08pm Hx of section December 18, 2024 2:08pm Hypothyroidism December 18, 2024 2: 08pm Lupus anticoagulant positive December 2:08pm December 18, 2024 2: 08pm Supervision of high-risk [facility] 2024 2:08pm UTI (urinary tract infection) during pre gnancy December 18, 2024 2:08pm Advanced maternal age (AMA) in January 06, 2025 3:54pm Anxiety January 06, 2025 3:54pm Family history of congenital anomaly of cardiovascular system January 06, 2025 3:54pm History of miscarriage January 06 3:54pm Hx of section January 06 3:54pm Hypothyroidism January 06, 2025 3:54pm Lupus anticoagulant positive January 062024 3:54pm January 06, 2025 3:54pm Supervision of high-risk Septe mber 2024 3:54pm UTI (urinary tract infection) during pre gnancy January 06, 2025 3:54pm Chief Complaint Admit Date *EST* NOB LMP 08/09, MARGUERITE 05/16October 13 8:19am Heartbeat Check October 27, 2024 10:5 5am 13wk OB November 18, 2024 9:46 am Heartbeat check December 01, 2024 10:3 5am 17 WK OB December 18, 2024 2: 08pm OB, H/A, incontinence, UA & Culture Sept ember 2024 3:54pm 21 wk ob January 12, 2025 2:26pm Reason for Visit Admit Date Advanced maternal age (AMA) in October 13, 2024 8:19am Anxiety October 13, 2024 8:19a m History of miscarriage October 13, 2024 8: 19am Hx of section October 13, 2024 8: 19am Hypothyroidism October 13, 2024 8:19a m Lupus anticoagulant positive October 13, 2 025 8:19am October 13, 2024 8:19a m Supervision of high-risk October 13, 2024 8:19am UTI (urinary tract infection) during pre gnancy October 13, 2024 8:19am Advanced maternal age (AMA) in October 27, 2024 10:55am Anxiety October 27, 2024 10:5 5am History of miscarriage October 27, 2024 1 0:55am Hx of section October 27, 2024 1 0:55am Hypothyroidism October 27, 2024 10:5 5am Lupus anticoagulant positive October 27, 2024 10:55am October 27, 2024 10:5 5am Supervision of high-risk October 27, 2024 10:55am UTI (urinary tract infection) during pre gnancy October 27, 2024 10:55am Advanced maternal age (AMA) in November 18, 2024 9:46am Anxiety November 18, 2024 9:46 am History of miscarriage November 18, 2024 9 :46am Hx of section November 18, 2024 9 :46am Hypothyroidism November 18, 2024 9:46 am Lupus anticoagulant positive November 18, 2024 9:46am November 18, 2024 9:46 am Supervision of high-risk November 18, 2024 9:46am UTI (urinary tract infection) during pre gnancy November 18, 2024 9:46am Advanced maternal age (AMA) in December 01, 2024 10:35am Anxiety December 01, 2024 10:3 5am History of miscarriage December 01, 2024 1 0:35am Hx of section December 01, 2024 1 0:35am Hypothyroidism December 01, 2024 10:3 5am Lupus anticoagulant positive December 01, 2024 10:35am December 01, 2024 10:3 5am Supervision of high-risk December 01, 2024 10:35am UTI (urinary tract infection) during pre gnancy December 01, 2024 10:35am Advanced maternal age (AMA) in December 18, 2024 2:08pm Anxiety December 18, 2024 2: 08pm History of miscarriage December 18, 2024 2:08pm Hx of section December 18, 2024 2:08pm Hypothyroidism December 18, 2024 2: 08pm Lupus anticoagulant positive December 2:08pm December 18, 2024 2: 08pm Supervision of high-risk [facility] 2024 2:08pm UTI (urinary tract infection) during pre gnancy December 18, 2024 2:08pm Advanced maternal age (AMA) in January 06, 2025 3:54pm Anxiety January 06, 2025 3:54pm Family history of congenital anomaly of cardiovascular system January 06, 2025 3:54pm History of miscarriage January 06 3:54pm Hx of section January 06 3:54pm Hypothyroidism January 06, 2025 3:54pm Lupus anticoagulant positive January 062024 3:54pm January 06, 2025 3:54pm Supervision of high-risk [facility] 2024 3:54pm UTI (urinary tract infection) during pre gnancy January 06, 2025 3:54pm Advanced maternal age (AMA) in January 12, 2025 2:26pm Anxiety January 12, 2025 2:26pm Family history of congenital anomaly of cardiovascular system January 12, 2025 2:26pm History of miscarriage January 12 2:26pm Hx of section January 12 2:26pm Hypothyroidism January 12, 2025 2:26pm Lupus anticoagulant positive January 122024 2:26pm January 12, 2025 2:26pm Recurrent urinary tract infe ction affecting in second trimester January 12, 2025 2:26pm Supervision of high-risk [facility] 2024 2:26pm Chief Complaint Admit Date *EST* NOB LMP 08/09, MARGUERITE 05/16October 13 8:19am Heartbeat Check October 27, 2024 10:5 5am 13wk OB November 18, 2024 9:46 am Heartbeat check December 01, 2024 10:3 5am 17 WK OB December 18, 2024 2: 08pm OB, H/A, incontinence, UA & Culture Jan 3:54pm 22wk2d ob January 12, 2025 2:26pm Chief Complaint Admit Date *EST* NOB LMP 4/5, MARGUERITE 05/16October 13 8:19am Heartbeat Check October 27, 2024 10:5 5am 13wk OB November 18, 2024 9:46 am Heartbeat check December 01, 2024 10:3 5am 17 WK OB December 18, 2024 2: 08pm OB, H/A, incontinence, UA & Culture Jan 3:54pm 22wk2d ob January 12, 2025 2:26pm 26wk2d ob/glucose February 09, 2025 9: 31am Reason for Visit Admit Date Advanced maternal age (AMA) in October 13, 2024 8:19am Anxiety October 13, 2024 8:19a m History of miscarriage October 13, 2024 8: 19am Hx of section October 13, 2024 8: 19am Hypothyroidism October 13, 2024 8:19a m Lupus anticoagulant positive October 13, 2 025 8:19am October 13, 2024 8:19a m Supervision of high-risk October 13, 2024 8:19am UTI (urinary tract infection) during pre gnancy October 13, 2024 8:19am Advanced maternal age (AMA) in October 27, 2024 10:55am Anxiety October 27, 2024 10:5 5am History of miscarriage October 27, 2024 1 0:55am Hx of section October 27, 2024 1 0:55am Hypothyroidism October 27, 2024 10:5 5am Lupus anticoagulant positive October 27, 2024 10:55am October 27, 2024 10:5 5am Supervision of high-risk October 27, 2024 10:55am UTI (urinary tract infection) during pre gnancy October 27, 2024 10:55am Advanced maternal age (AMA) in November 18, 2024 9:46am Anxiety November 18, 2024 9:46 am History of miscarriage November 18, 2024 9 :46am Hx of section November 18, 2024 9 :46am Hypothyroidism November 18, 2024 9:46 am Lupus anticoagulant positive November 18, 2024 9:46am November 18, 2024 9:46 am Supervision of high-risk November 18, 2024 9:46am UTI (urinary tract infection) during pre gnancy November 18, 2024 9:46am Advanced maternal age (AMA) in December 01, 2024 10:35am Anxiety December 01, 2024 10:3 5am History of miscarriage December 01, 2024 1 0:35am Hx of section December 01, 2024 1 0:35am Hypothyroidism December 01, 2024 10:3 5am Lupus anticoagulant positive December 01, 2024 10:35am December 01, 2024 10:3 5am Supervision of high-risk December 01, 2024 10:35am UTI (urinary tract infection) during pre gnancy December 01, 2024 10:35am Advanced maternal age (AMA) in December 18, 2024 2:08pm Anxiety December 18, 2024 2: 08pm History of miscarriage December 18, 2024 2:08pm Hx of section December 18, 2024 2:08pm Hypothyroidism December 18, 2024 2: 08pm Lupus anticoagulant positive December 2:08pm December 18, 2024 2: 08pm Supervision of high-risk [facility] 2024 2:08pm UTI (urinary tract infection) during pre gnancy December 18, 2024 2:08pm Advanced maternal age (AMA) in January 06, 2025 3:54pm Anxiety January 06, 2025 3:54pm Family history of congenital anomaly of cardiovascular system January 06, 2025 3:54pm History of miscarriage January 06 3:54pm Hx of section January 06 3:54pm Hypothyroidism January 06, 2025 3:54pm Lupus anticoagulant positive January 062024 3:54pm January 06, 2025 3:54pm Supervision of high-risk [facility] 2024 3:54pm UTI (urinary tract infection) during pre gnancy January 06, 2025 3:54pm Advanced maternal age (AMA) in January 12, 2025 2:26pm Anxiety January 12, 2025 2:26pm Family history of congenital anomaly of cardiovascular system January 12, 2025 2:26pm History of miscarriage January 12 2:26pm Hx of section January 12 2:26pm Hypothyroidism January 12, 2025 2:26pm Lupus anticoagulant positive January 122024 2:26pm January 12, 2025 2:26pm Recurrent urinary tract infe ction affecting in second trimester January 12, 2025 2:26pm Supervision of high-risk [facility] 2024 2:26pm Advanced maternal age (AMA) in February 09, 2025 9:31am Anxiety February 09, 2025 9: 31am Family history of congenital anomaly of cardiovascular system February 09, 2025 9:31am History of miscarriage February 09, 2025 9:31am Hx of section February 09, 2025 9:31am Hypothyroidism February 09, 2025 9: 31am Lupus anticoagulant positive February 9:31am February 09, 2025 9: 31am Recurrent urinary tract infe ction affecting in second trimester February 09, 2025 9:31am Supervision of high-risk [facility] 2024 9:31am Chief Complaint Admit Date 13wk OB November 18, 2024 9:46 am Heartbeat check December 01, 2024 10:3 5am 17 WK OB December 18, 2024 2: 08pm OB, H/A, incontinence, UA & Culture [facility]2024 3:54pm 22wk2d ob January 12, 2025 2:26pm 26wk2d ob/glucose February 09, 2025 9: 31am 28wk2d ob February 23, 2025 9 :34am 30wk2d ob March 09, 2025 1 0:41am Reason for Visit Admit Date Advanced maternal age (AMA) in November 18, 2024 9:46am Anxiety November 18, 2024 9:46 am History of miscarriage November 18, 2024 9 :46am Hx of section November 18, 2024 9 :46am Hypothyroidism November 18, 2024 9:46 am Lupus anticoagulant positive November 18, 2024 9:46am November 18, 2024 9:46 am Supervision of high-risk November 18, 2024 9:46am UTI (urinary tract infection) during pre gnancy November 18, 2024 9:46am Advanced maternal age (AMA) in December 01, 2024 10:35am Anxiety December 01, 2024 10:3 5am History of miscarriage December 01, 2024 1 0:35am Hx of section December 01, 2024 1 0:35am Hypothyroidism December 01, 2024 10:3 5am Lupus anticoagulant positive December 01, 2024 10:35am December 01, 2024 10:3 5am Supervision of high-risk December 01, 2024 10:35am UTI (urinary tract infection) during pre gnancy December 01, 2024 10:35am Advanced maternal age (AMA) in December 18, 2024 2:08pm Anxiety December 18, 2024 2: 08pm History of miscarriage December 18, 2024 2:08pm Hx of section December 18, 2024 2:08pm Hypothyroidism December 18, 2024 2: 08pm Lupus anticoagulant positive December 2:08pm December 18, 2024 2: 08pm Supervision of high-risk Augus t 2024 2:08pm UTI (urinary tract infection) during pre gnancy December 18, 2024 2:08pm Advanced maternal age (AMA) in January 06, 2025 3:54pm Anxiety January 06, 2025 3:54pm Family history of congenital anomaly of cardiovascular system January 06, 2025 3:54pm History of miscarriage January 06 3:54pm Hx of section January 06 3:54pm Hypothyroidism January 06, 2025 3:54pm Lupus anticoagulant positive January 062024 3:54pm January 06, 2025 3:54pm Supervision of high-risk Septe mb 2024 3:54pm UTI (urinary tract infection) during pre gnancy January 06, 2025 3:54pm Advanced maternal age (AMA) in January 12, 2025 2:26pm Anxiety January 12, 2025 2:26pm Family history of congenital anomaly of cardiovascular system January 12, 2025 2:26pm History of miscarriage January 12 2:26pm Hx of section January 12 2:26pm Hypothyroidism January 12, 2025 2:26pm Lupus anticoagulant positive January 122024 2:26pm January 12, 2025 2:26pm Recurrent urinary tract infe ction affecting in second trimester January 12, 2025 2:26pm Supervision of high-risk [facility] 2024 2:26pm Advanced maternal age (AMA) in February 09, 2025 9:31am Anxiety February 09, 2025 9: 31am Family history of congenital anomaly of cardiovascular system February 09, 2025 9:31am History of miscarriage February 09, 2025 9:31am Hx of section February 09, 2025 9:31am Hypothyroidism February 09, 2025 9: 31am Lupus anticoagulant positive February 9:31am February 09, 2025 9: 31am Recurrent urinary tract infe ction affecting in second trimester February 09, 2025 9:31am Supervision of high-risk Octob er 2024 9:31am Advanced maternal age (AMA) in February 23, 2025 9:34am Anxiety February 23, 2025 9 :34am Family history of congenital anomaly of cardiovascular system February 23, 2025 9:34am History of miscarriage February 23 9:34am Hx of section February 23 9:34am Hypothyroidism February 23, 2025 9 :34am Lupus anticoagulant positive February 9:34am Mild anemia February 23, 2025 9 :34am February 23, 2025 9 :34am Recurrent urinary tract infe ction affecting in second trimester February 23, 2025 9:34am Supervision of high-risk Octob er 2024 9:34am Advanced maternal age (AMA) in March 09, 2025 10:41am Anxiety March 09, 2025 1 0:41am Family history of congenital anomaly of cardiovascular system March 09, 2025 10:41am History of miscarriage March 09 10:41am Hx of section November 3rd, 202 5 10:41am Hypothyroidism March 09, 2025 1 0:41am Lupus anticoagulant positive March 10:41am Mild anemia March 09, 2025 1 0:41am March 09, 2025 1 0:41am Recurrent urinary tract infe ction affecting in second trimester March 09, 2025 10:41am Supervision of high-risk Novem 2024 10:41am Reason for Referral Specialty Diagnoses / Procedures Referred By Contac t Referred To Contact [facility] Diagnoses Cervicogenic headache Procedures PT REHAB FOLLOW UP ORDER THERAPEUTIC EXERCISES RE, EA [address] [place] [address] [facility] [place] [address] Referral ID Status Reason Start Date Expiration Date Visits Requested Visits Authorized [id number] Pending Review PCP Requested Referral Auto-Generate d Referral 11/20/2022 02/18/2023 1 1 Specialty Diagnoses / Procedures Referred By Contac t Referred To Contact [facility] Diagnoses Demyelinating disease of central nervous system (HCC) Procedures MRI BRAIN WO/W IVCON MRI BRAIN BRAIN STEM W/O W/CONTRAST MATERIAL Genet Denton PA-C [address] [place] [address] Mr Imaging [id number] Referral ID Status Reason Start Date Expiration Date V isits Requested Visits Authorized [id number] Closed Auto-Generate d Referral 11/14/2022 12/14/2023 1 1 Specialty Diagnoses / Procedures Referred By Contac t Referred To Contact MR IMAGING Diagnoses Demyelinating disease of central nervous system (HCC) Procedures MRI CERVICAL SPINE WO/W IVCON MRI SPINAL CANAL CERVICAL W/O & W/CONTR MATRL Genet Denton PA-C [address] [place] [address] Mr Imaging [facility] Referral ID Status Reason Start Date Expiration Date V isits Requested Visits Authorized [id number] Closed Auto-Generate d Referral 11/14/2022 12/14/2023 1 1 Additional Source Comments INFORMATION SOURCE (unrecogn ized section and content) DATE CREATED AUTHOR 01/22/2019 [facility] DATE CREATED AUTHOR AUTHOR'S ORGANIZ ATION 02/28/2019 [facility] DATE CREATED AUTHOR AUTHOR'S ORGANIZ ATION 05/05/2020 [facility] DATE CREATED AUTHOR AUTHOR'S ORGANIZ ATION 05/05/2020 [facility] DATE CREATED AUTHOR AUTHOR'S ORGANIZ ATION 01/12/2025 [facility] DATE CREATED AUTHOR AUTHOR'S ORGANIZ ATION 02/10/[address] [facility] DATE CREATED AUTHOR AUTHOR'S ORGANIZ ATION 02/19/2025 [facility] DATE CREATED AUTHOR AUTHOR'S ORGANIZ ATION 03/18/2025 [facility] Goals (unrecognized section and content) Type Care Experience [facility]LT[facility] Care Experience Labor Preferences-CB /BF classes: []labor support person: []labor intervention preferences: []pain management options preferred: []cut cord/dad catch: []: []PP control planned: []discussed possible routes of delivery and associated risks: []special requests: [] Care Experience plans repeat c/s Source Comments (unrecognize d section and content) In the event this informatio n is protected by the Federal Confidentiality of Alcohol and Drug Abuse Patient Records regulations: The Federal rules restrict any use of the information to criminally investigate or prosecute any alcohol or drug abuse patient.[facility] the event this information is protected by the Federal Confidentiality of Alcohol and Drug Abuse Patient Records regulations: The Federal rules restrict any use of the information to criminally investigate or prosecute any alcohol or drug abuse patient.[facility] HospitalIn the event this information is protected by the Federal Confidentiality of Alcohol and Drug Abuse Patient Records regulations: The Federal rules restrict any use of the information to criminally investigate or prosecute any alcohol or drug abuse patient.[facility] HospitalIn the event this information is protected by the Federal Confidentiality of Alcohol and Drug Abuse Patient Records regulations: The Federal rules restrict any use of the information to criminally investigate or prosecute any alcohol or drug abuse patient.[facility] HospitalIn the event this information is protected by the Federal Confidentiality of Alcohol and Drug Abuse Patient Records regulations: The Federal rules restrict any use of the information to criminally investigate or prosecute any alcohol or drug abuse patient.[facility] HospitalIn the event this information is protected by the Federal Confidentiality of Alcohol and Drug Abuse Patient Records regulations: The Federal rules restrict any use of the information to criminally investigate or prosecute any alcohol or drug abuse patient.[facility] HospitalIn the event this information is protected by the Federal Confidentiality of Alcohol and Drug Abuse Patient Records regulations: The Federal rules restrict any use of the information to criminally investigate or prosecute any alcohol or drug abuse patient.[facility] HospitalIn the event this information is protected by the Federal Confidentiality of Alcohol and Drug Abuse Patient Records regulations: The Federal rules restrict any use of the information to criminally investigate or prosecute any alcohol or drug abuse patient.[facility] HospitalIn the event this information is protected by the Federal Confidentiality of Alcohol and Drug Abuse Patient Records regulations: The Federal rules restrict any use of the information to criminally investigate or prosecute any alcohol or drug abuse patient.[facility] HospitalIn the event this information is protected by the Federal Confidentiality of Alcohol and Drug Abuse Patient Records regulations: The Federal rules restrict any use of the information to criminally investigate or prosecute any alcohol or drug abuse patient.[facility] HospitalIn the event this information is protected by the Federal Confidentiality of Alcohol and Drug Abuse Patient Records regulations: The Federal rules restrict any use of the information to criminally investigate or prosecute any alcohol or drug abuse patient.[facility] HospitalIn the event this information is protected by the Federal Confidentiality of Alcohol and Drug Abuse Patient Records regulations: The Federal rules restrict any use of the information to criminally investigate or prosecute any alcohol or drug abuse patient.[facility] HospitalIn the event this information is protected by the Federal Confidentiality of Alcohol and Drug Abuse Patient Records regulations: The Federal rules restrict any use of the information to criminally investigate or prosecute any alcohol or drug abuse patient.[facility] HospitalIn the event this information is protected by the Federal Confidentiality of Alcohol and Drug Abuse Patient Records regulations: The Federal rules restrict any use of the information to criminally investigate or prosecute any alcohol or drug abuse patient.[facility] HospitalIn the event this information is protected by the Federal Confidentiality of Alcohol and Drug Abuse Patient Records regulations: The Federal rules restrict any use of the information to criminally investigate or prosecute any alcohol or drug abuse patient.[facility] HospitalIn the event this information is protected by the Federal Confidentiality of Alcohol and Drug Abuse Patient Records regulations: The Federal rules restrict any use of the information to criminally investigate or prosecute any alcohol or drug abuse patient.[facility] HospitalIn the event this information is protected by the Federal Confidentiality of Alcohol and Drug Abuse Patient Records regulations: The Federal rules restrict any use of the information to criminally investigate or prosecute any alcohol or drug abuse patient.[facility] HospitalIn the event this information is protected by the Federal Confidentiality of Alcohol and Drug Abuse Patient Records regulations: The Federal rules restrict any use of the information to criminally investigate or prosecute any alcohol or drug abuse patient.[facility] HospitalIn the event this information is protected by the Federal Confidentiality of Alcohol and Drug Abuse Patient Records regulations: The Federal rules restrict any use of the information to criminally investigate or prosecute any alcohol or drug abuse patient.[facility] HospitalIn the event this information is protected by the Federal Confidentiality of Alcohol and Drug Abuse Patient Records regulations: The Federal rules restrict any use of the information to criminally investigate or prosecute any alcohol or drug abuse patient.[facility] HospitalIn the event this information is protected by the Federal Confidentiality of Alcohol and Drug Abuse Patient Records regulations: The Federal rules restrict any use of the information to criminally investigate or prosecute any alcohol or drug abuse patient.[facility] HospitalIn the event this information is protected by the Federal Confidentiality of Alcohol and Drug Abuse Patient Records regulations: The Federal rules restrict any use of the information to criminally investigate or prosecute any alcohol or drug abuse patient.[facility] HospitalIn the event this information is protected by the Federal Confidentiality of Alcohol and Drug Abuse Patient Records regulations: The Federal rules restrict any use of the information to criminally investigate or prosecute any alcohol or drug abuse patient.[facility] HospitalIn the event this information is protected by the Federal Confidentiality of Alcohol and Drug Abuse Patient Records regulations: The Federal rules restrict any use of the information to criminally investigate or prosecute any alcohol or drug abuse patient.[facility] HospitalIn the event this information is protected by the Federal Confidentiality of Alcohol and Drug Abuse Patient Records regulations: The Federal rules restrict any use of the information to criminally investigate or prosecute any alcohol or drug abuse patient.[facility] HospitalIn the event this information is protected by the Federal Confidentiality of Alcohol and Drug Abuse Patient Records regulations: The Federal rules restrict any use of the information to criminally investigate or prosecute any alcohol or drug abuse patient.[facility] HospitalIn the event this information is protected by the Federal Confidentiality of Alcohol and Drug Abuse Patient Records regulations: The Federal rules restrict any use of the information to criminally investigate or prosecute any alcohol or drug abuse patient.[facility] HospitalIn the event this information is protected by the Federal Confidentiality of Alcohol and Drug Abuse Patient Records regulations: The Federal rules restrict any use of the information to criminally investigate or prosecute any alcohol or drug abuse patient.[facility] HospitalIn the event this information is protected by the Federal Confidentiality of Alcohol and Drug Abuse Patient Records regulations: The Federal rules restrict any use of the information to criminally investigate or prosecute any alcohol or drug abuse patient.[facility] HospitalIn the event this information is protected by the Federal Confidentiality of Alcohol and Drug Abuse Patient Records regulations: The Federal rules restrict any use of the information to criminally investigate or prosecute any alcohol or drug abuse patient.[facility] HospitalIn the event this information is protected by the Federal Confidentiality of Alcohol and Drug Abuse Patient Records regulations: The Federal rules restrict any use of the information to criminally investigate or prosecute any alcohol or drug abuse patient.[facility] HospitalIn the event this information is protected by the Federal Confidentiality of Alcohol and Drug Abuse Patient Records regulations: The Federal rules restrict any use of the information to criminally investigate or prosecute any alcohol or drug abuse patient.[facility] HospitalIn the event this information is protected by the Federal Confidentiality of Alcohol and Drug Abuse Patient Records regulations: The Federal rules restrict any use of the information to criminally investigate or prosecute any alcohol or drug abuse patient.[facility] HospitalIn the event this information is protected by the Federal Confidentiality of Alcohol and Drug Abuse Patient Records regulations: The Federal rules restrict any use of the information to criminally investigate or prosecute any alcohol or drug abuse patient.[facility] HospitalIn the event this information is protected by the Federal Confidentiality of Alcohol and Drug Abuse Patient Records regulations: The Federal rules restrict any use of the information to criminally investigate or prosecute any alcohol or drug abuse patient.[facility] HospitalIn the event this information is protected by the Federal Confidentiality of Alcohol and Drug Abuse Patient Records regulations: The Federal rules restrict any use of the information to criminally investigate or prosecute any alcohol or drug abuse patient.[facility] HospitalIn the event this information is protected by the Federal Confidentiality of Alcohol and Drug Abuse Patient Records regulations: The Federal rules restrict any use of the information to criminally investigate or prosecute any alcohol or drug abuse patient.[facility] HospitalIn the event this information is protected by the Federal Confidentiality of Alcohol and Drug Abuse Patient Records regulations: The Federal rules restrict any use of the information to criminally investigate or prosecute any alcohol or drug abuse patient.[facility] HospitalIn the event this information is protected by the Federal Confidentiality of Alcohol and Drug Abuse Patient Records regulations: The Federal rules restrict any use of the information to criminally investigate or prosecute any alcohol or drug abuse patient.[facility] HospitalIn the event this information is protected by the Federal Confidentiality of Alcohol and Drug Abuse Patient Records regulations: The Federal rules restrict any use of the information to criminally investigate or prosecute any alcohol or drug abuse patient.[facility] HospitalIn the event this information is protected by the Federal Confidentiality of Alcohol and Drug Abuse Patient Records regulations: The Federal rules restrict any use of the information to criminally investigate or prosecute any alcohol or drug abuse patient.[facility] HospitalIn the event this information is protected by the Federal Confidentiality of Alcohol and Drug Abuse Patient Records regulations: The Federal rules restrict any use of the information to criminally investigate or prosecute any alcohol or drug abuse patient.[facility] HospitalIn the event this information is protected by the Federal Confidentiality of Alcohol and Drug Abuse Patient Records regulations: The Federal rules restrict any use of the information to criminally investigate or prosecute any alcohol or drug abuse patient.[facility] HospitalIn the event this information is protected by the Federal Confidentiality of Alcohol and Drug Abuse Patient Records regulations: The Federal rules restrict any use of the information to criminally investigate or prosecute any alcohol or drug abuse patient.[facility] HospitalIn the event this information is protected by the Federal Confidentiality of Alcohol and Drug Abuse Patient Records regulations: The Federal rules restrict any use of the information to criminally investigate or prosecute any alcohol or drug abuse patient.[facility] HospitalIn the event this information is protected by the Federal Confidentiality of Alcohol and Drug Abuse Patient Records regulations: The Federal rules restrict any use of the information to criminally investigate or prosecute any alcohol or drug abuse patient.[facility] HospitalIn the event this information is protected by the Federal Confidentiality of Alcohol and Drug Abuse Patient Records regulations: The Federal rules restrict any use of the information to criminally investigate or prosecute any alcohol or drug abuse patient.[facility] HospitalIn the event this information is protected by the Federal Confidentiality of Alcohol and Drug Abuse Patient Records regulations: The Federal rules restrict any use of the information to criminally investigate or prosecute any alcohol or drug abuse patient.[facility] Care Teams (unrecognized sec tion and content) Team Status: Active Member Role Status Dates Dr. Cain Pretty MD Primary Care Provider Active Team Status: Inactive Member Role Status Dates Dr. Cain Pretty MD Primary Care Provider Active Radha Stark CNM Attending Provider, Referring Pr ovidlily Active Team Status: Inactive Member Role Status Dates Dr. Cain Pretty MD Primary Care Provider Active Dr. Spenser Hsieh DO Emergency Provider Active Team Status: Active Member Role Status Dates Dr. Cain Pretty MD Primary Care Provider Active Radha Stark CNM Attending Provider, Referring Pr ovider Active Records Management Analyst Relationship Specialty Start Date End Date Cain Pretty MD [facility] [place] [address] PCP - General Family Practice 04/20/14 Records Management Analyst Relationship Specialty Start Date End Date Cain Pretty MD [address] [place] [address] [place] [address] PCP - General Family Practice 04/20/14 Records Management Analyst Relationship Specialty Start Date End Date Cain Pretty MD [address] [place] [address] [place] [address] PCP - General Family Practice 04/20/14 Records Management Analyst Relationship Specialty Start Date End Date Cain Pretty MD [address] [place] [address], [place] [address] PCP - General Family Medicine 04/20/14 Records Management Analyst Relationship Specialty Start Date End Date Cain Pretty MD [address] [place] [address], [place] [address] PCP - General Family Medicine 04/20/14 Records Management Analyst Relationship Specialty Start Date End Date Cain Pretty MD [address] [place] [address] [place] [address] PCP - General Family Medicine 04/20/14 Records Management Analyst Relationship Specialty Start Date End Date Cain Pretty MD [address] [place] [address] [place] [address] PCP - General Family Medicine 04/20/14 Records Management Analyst Relationship Specialty Start Date End Date Cain Pretty MD [address] [place] [address] PCP - General Family Medicine 04/20/14 Records Management Analyst Relationship Specialty Start Date End Date Cain Pretty MD [address] [place] [address] PCP - General Family Medicine 04/20/14 Records Management Analyst Relationship Specialty Start Date End Date Cain Pretty MD [address] [place] [address] PCP - General Family Medicine 04/20/14 Records Management Analyst Relationship Specialty Start Date End Date Cain Pretty MD [address] [place] [address] PCP - General Family Medicine 04/20/14 Records Management Analyst Relationship Specialty Start Date End Date Cain Pretty MD [address] [place] [address] PCP - General Family Medicine 04/20/14 Records Management Analyst Relationship Specialty Start Date End Date Cain Pretty MD [address] [place] [address] PCP - General Family Medicine 04/20/14 Records Management Analyst Relationship Specialty Start Date End Date Cain Pretty MD [address] [place] [address] PCP - General Family Medicine 04/20/14 Records Management Analyst Relationship Specialty Start Date End Date Cain Pretty MD [address] [place] [address] PCP - General Family Medicine 04/20/14 Records Management Analyst Relationship Specialty Start Date End Date Cain Pretty MD [address] [place] [address] PCP - General Family Medicine 04/20/14 Records Management Analyst Relationship Specialty Start Date End Date Cain Pretty MD [address] [place] [address] PCP - General Family Medicine 04/20/14 Records Management Analyst Relationship Specialty Start Date End Date Cain Pretty MD [address] [place] [address] PCP - General Family Medicine 04/20/14 Records Management Analyst Relationship Specialty Start Date End Date Cain Pretty MD [address] [place] [address] PCP - General Family Medicine 04/20/14 Team Status: Inactive Member Role Status Dates Dr. Cain Pretty MD Primary Care Provider, Referri ng Provider Active Margo San CNM Attending Provider Active Team Status: Inactive Member Role Status Dates Dr. Cain Prtety MD Primary Care Provider Active Dr. Spenser Hsieh DO Attending Provider, Emergency Pro vider Active Records Management Analyst Relationship Specialty Start Date End Date Cain Pretty MD [address] [place] [address] PCP - General Family Medicine 04/20/14 Records Management Analyst Relationship Specialty Start Date End Date Cain Pretty MD [address] [place] [address] PCP - General Family Medicine 04/20/14 Records Management Analyst Relationship Specialty Start Date End Date Cain Pretty MD [address] [place] [address] PCP - General Family Medicine 04/20/14 Records Management Analyst Relationship Specialty Start Date End Date Cain Pretty MD [address] [place] [address] PCP - General Family Medicine 04/20/14 Records Management Analyst Relationship Specialty Start Date End Date Cain Pretty MD [address] [place] [address] PCP - General Family Medicine 04/20/14 Records Management Analyst Relationship Specialty Start Date End Date Cain Pretty MD [address] [place] [address] PCP - General Family Medicine 04/20/14 Records Management Analyst Relationship Specialty Start Date End Date Cain Pretty MD [address] [place] [address] PCP - General Family Medicine 04/20/14 Andreia Viramontes APRN.GRAIN THRESHER [address] [place] [address] Building Construction Professor Family Medicine 04/12/24 Catarina Lockhart PA-C [address] [place] [address] Building Construction Professor Family Medicine 04/12/24 Records Management Analyst Relationship Specialty Start Date End Date Cain Pretty MD [address] [place] [address] PCP - General Family Medicine 04/20/14 Andreia Viramontes APRN.GRAIN THRESHER [address] [place] [address] Building Construction Professor Family [facility] 04/12/24 Catarina Lockhart PA-C [address] [place] [address] Formerly [facility] 04/12/24 Records Management Analyst Relationship Specialty Start Date End Date Cain Pretty MD [address] [place] [address] PCP - General Family Medicine 04/20/14 Andreia Viramontes APRN.GRAIN THRESHER [address] [place] [address] Formerly [facility] 04/12/24 Catarina Lockhart PA-C [address] [place] [address] Formerly [facility] 04/12/24 Records Management Analyst Relationship Specialty Start Date End Date Cain Pretty MD [address] [place] [address] PCP - General Family Medicine 04/20/14 Andreia Viramontes APRN.GRAIN THRESHER [address] [place] [address] [facility] 04/12/24 Catarina Lockhart PA-C [address] [place] [address] Formerly [facility] 04/12/24 Records Management Analyst Relationship Specialty Start Date End Date Cain Pretty MD [address] [place] [address] PCP - General Family Medicine 04/20/14 Andreia Viramontes APRN.GRAIN THRESHER [address] [place] [address] Formerly [facility] 04/12/24 Catarina Lockhart PA-C [address] [place], [place] [address] Formerly [facility] 04/12/24 Team Status: Inactive Member Role Status Dates Dr. Cain Pretty MD Primary Care Provider Active Start: March 31, 2024 End: March 31, 2024 Dr. Cain Pretty MD Referring Provider Active Start: March 31, 2024 End: March 31, 2024 Dr. Jackie Patterson DO Attending Provider Activ e Start: March 31, 2024 End: March 31, 2024 Team Status: Inactive Member Role Status Dates Dr. Cain Pretty MD Primary Care Provider Active Start: March 31, 2024 End: March 31, 2024 Dr. Jackie Patterson DO Attending Provider Activ e Start: March 31, 2024 End: March 31, 2024 Dr. Jackie Patterson DO Referring Provider Activ e Start: March 31, 2024 End: March 31, 2024 Team Status: Inactive Member Role Status Dates Dr. Cain Pretty MD Primary Care Provider Active Start: April 20, 2024 End: April 20, 2024 Dr. Aden Goodman MD Attending Provider Active Start: April 20, 2024 End: April 20, 2024 Dr. Aden Goodman MD Emergency Provider Active Start: April 20, 2024 End: April 20, 2024 Team Status: Inactive Member Role Status Dates Dr. Cain Pretty MD Primary Care Provider Active Start: April 21, 2024 End: April 21, 2024 Dr. Cain Pretty MD Referring Provider Active Start: April 21, 2024 End: April 21, 2024 Dr. Smiley Madrid MD Attending Provider Active Start: April 21, 2024 End: April 21, 2024 Team Status: Inactive Member Role Status Dates Dr. Cain Pretty MD Primary Care Provider Active Start: April 21, 2024 End: April 21, 2024 Dr. Smiley Madrid MD Attending Provider Active Start: April 21, 2024 End: April 21, 2024 Dr. Smiley Madrid MD Referring Provider Active Start: April 21, 2024 End: April 21, 2024 Team Status: Active Member Role Status Dates Dr. Cain Pretty MD Primary Care Provider Active Start: April 21, 2024 Dr. Smiley Madrid MD Attending Provider Active Start: April 21, 2024 Dr. Smiley Madrid MD Referring Provider Active Start: April 21, 2024 Dr. Smiley Madrid MD Other Provider Active Start: April 21, 2024 Team Status: Inactive Member Role Status Dates Dr. Cain Pretty MD Primary Care Provider Active Start: May 19, 2024 End: May 19, 2024 Dr. Cain Pretty MD Referring Provider Active Start: May 19, 2024 End: May 19, 2024 Dr. Smiley Madrid MD Attending Provider Active Start: May 19, 2024 End: May 19, 2024 Team Status: Inactive Member Role Status Dates Dr. Cain Pretty MD Primary Care Provider Active Start: July 16, 2024 End: July 16, 2024 Dr. Smiley Madrid MD Attending Provider Active Start: July 16, 2024 End: July 16, 2024 Dr. Smiley Madrid MD Referring Provider Active Start: July 16, 2024 End: July 16, 2024 Records Management Analyst Relationship Specialty Start Date End Date Cain Pretty MD [address] [place] [address] PCP - General Family Medicine 04/20/14 Andreia Viramontes APRN.SHEILA [address] [place] [address] Formerly [facility] 04/12/24 Catarina Lockhart PA-C [address] [place] [address] Formerly [facility] 04/12/24 Records Management Analyst Relationship Specialty Start Date End Date Cain Pretty MD [address] [place], [place] [address] PCP - General Family Medicine 04/20/14 Andreia Viramontes APRN.GRAIN THRESHER [address] [place], [place] [address] [phone] Building Construction Professor Family Medicine 04/12/24 09/21/24 Catarina Lockhart PA-C [address] [place], [place] [address] [phone] 04/12/24 Records Management Analyst Relationship Specialty Start Date End Date Cain Pretty MD [address] [place] [address] PCP - General Family Medicine 04/20/14 Andreia Viramontes, GARY.GRAIN THRESHER [address] [place], [place] [address] Building Construction [facility] 10/06/24 Catarina Lockhart PA-C [address] [place], [place] [address] Building [facility] 10/06/24 Team Status: Inactive Member Role Status Dates Dr. Cain Pretty MD Primary Care Provider Active Start: October 13, 2024 End: October 13, 2024 Dr. Cain Pretty MD Referring Provider Active Start: October 13, 2024 End: October 13, 2024 Margo San CNM Attending Provider Active S tart: October 13, 2024 End: October 13, 2024 Team Status: Inactive Member Role Status Dates Dr. Cain Pretty MD Primary Care Provider Active Start: October 13, 2024 End: October 13, 2024 Margo San CNM Attending Provider Active S tart: October 13, 2024 End: October 13, 2024 Margo San CNM Referring Provider Active S tart: October 13, 2024 End: October 13, 2024 Team Status: Inactive Member Role Status Dates Dr. Cain Pretty MD Primary Care Provider Active Start: October 27, 2024 End: October 27, 2024 Dr. Cain Pretty MD Referring Provider Active Start: October 27, 2024 End: October 27, 2024 Dr. Smiley Madrid MD Attending Provider Active Start: October 27, 2024 End: October 27, 2024 Team Status: Active Member Role Status Dates Dr. Cain Pretty MD Primary Care Provider Active Start: October 27, 2024 Dr. Smiley Madrid MD Attending Provider Active Start: October 27, 2024 Dr. Smiley Madrid MD Referring Provider Active Start: October 27, 2024 Records Management Analyst Relationship Specialty Start Date End Date Cain Pretty MD [address] [place] [address] PCP - General Family Medicine 04/20/14 Andreia Viramontes APRN.CNP [address] [place] [address] Formerly [facility] 10/06/24 Catarina Lockhart PA-C [address] [place] [address] Formerly [facility] 10/06/24 Team Status: Active Member Role/Relationship Status Dates Dr. Cain Pretty MD Primary Care Provider Active Team Status: Inactive Member Role/Relationship Status Dates Dr. Cain Pretty MD Primary Care Provider Active Start: July 16, 2024 End: July 16, 2024 Dr. Smiley Madrid MD Attending Provider Active Start: July 16, 2024 End: July 16, 2024 Dr. Smiley Madrid MD Referring Provider Active Start: July 16, 2024 End: July 16, 2024 Team Status: Inactive Member Role/Relationship Status Dates Dr. Cain Pretty MD Primary Care Provider Active Start: October 13, 2024 End: October 13, 2024 Dr. Cain Pretty MD Referring Provider Active Start: October 13, 2024 End: October 13, 2024 Margo San CNM Attending Provider Active S tart: October 13, 2024 End: October 13, 2024 Team Status: Inactive Member Role/Relationship Status Dates Dr. Cain Pretty MD Primary Care Provider Active Start: October 13, 2024 End: October 13, 2024 Margo San CNM Attending Provider Active S tart: October 13, 2024 End: October 13, 2024 Margo San CNM Referring Provider Active S tart: October 13, 2024 End: October 13, 2024 Team Status: Inactive Member Role/Relationship Status Dates Dr. Cain Pretty MD Primary Care Provider Active Start: October 27, 2024 End: October 27, 2024 Dr. Cain Pretty MD Referring Provider Active Start: October 27, 2024 End: October 27, 2024 Dr. Smiley Madrid MD Attending Provider Active Start: October 27, 2024 End: October 27, 2024 Team Status: Inactive Member Role/Relationship Status Dates Dr. Cain Pretty MD Primary Care Provider Active Start: October 27, 2024 End: October 27, 2024 Dr. Smiley Madrid MD Attending Provider Active Start: October 27, 2024 End: October 27, 2024 Dr. Smiley Madrid MD Referring Provider Active Start: October 27, 2024 End: October 27, 2024 Team Status: Inactive Member Role/Relationship Status Dates Dr. Cain Pretty MD Primary Care Provider Active Start: October 13, 2024 End: October 13, 2024 Dr. Cain Pretty MD Referring Provider Active Start: October 13, 2024 End: October 13, 2024 Margo San CNM Attending Provider Active S tart: October 13, 2024 End: October 13, 2024 Team Status: Inactive Member Role/Relationship Status Dates Dr. Cain Pretty MD Primary Care Provider Active Start: October 13, 2024 End: October 13, 2024 Margo San CNM Attending Provider Active S tart: October 13, 2024 End: October 13, 2024 Margo San CNM Referring Provider Active S tart: October 13, 2024 End: October 13, 2024 Team Status: Inactive Member Role/Relationship Status Dates Dr. Cain Pretty MD Primary Care Provider Active Start: October 27, 2024 End: October 27, 2024 Dr. Cain Pretty MD Referring Provider Active Start: October 27, 2024 End: October 27, 2024 Dr. Smiley Madrid MD Attending Provider Active Start: October 27, 2024 End: October 27, 2024 Team Status: Inactive Member Role/Relationship Status Dates Dr. Cain Pretty MD Primary Care Provider Active Start: October 27, 2024 End: October 27, 2024 Dr. Smilye Madrid MD Attending Provider Active Start: October 27, 2024 End: October 27, 2024 Dr. Smiley Madrid MD Referring Provider Active Start: October 27, 2024 End: October 27, 2024 Team Status: Inactive Member Role/Relationship Status Dates Dr. Cain Pretty MD Primary Care Provider Active Start: November 18, 2024 End: November 18, 2024 Dr. Cain Pretty MD Referring Provider Active Start: November 18, 2024 End: November 18, 2024 Dr. Jackie Patterson DO Attending Provider Activ e Start: November 18, 2024 End: November 18, 2024 Team Status: Inactive Member Role/Relationship Status Dates Dr. Cain Pretty MD Primary Care Provider Active Start: December 01, 2024 End: December 01, 2024 Dr. Cain Pretty MD Referring Provider Active Start: December 01, 2024 End: December 01, 2024 Margo San CNM Attending Provider Active S tart: December 01, 2024 End: December 01, 2024 Team Status: Inactive Member Role/Relationship Status Dates Dr. Cain Pretty MD Primary Care Provider Active Start: December 18, 2024 End: December 18, 2024 Dr. Cain Pretty MD Referring Provider Active Start: December 18, 2024 End: December 18, 2024 Dr. Smiley Madrid MD Attending Provider Active Start: December 18, 2024 End: December 18, 2024 Team Status: Active Member Role/Relationship Status Dates Dr. Cain Pretty MD Primary Care Provider Active Start: December 18, 2024 Dr. Smiley Madrid MD Attending Provider Active Start: December 18, 2024 Dr. Smiley Madrid MD Referring Provider Active Start: December 18, 2024 Team Status: Inactive Member Role/Relationship Status Dates Dr. Cain Pretty MD Primary Care Provider Active Start: December 18, 2024 End: December 18, 2024 Dr. Smiley Madrid MD Attending Provider Active Start: December 18, 2024 End: December 18, 2024 Dr. Smiley Madrid MD Referring Provider Active Start: December 18, 2024 End: December 18, 2024 Team Status: Inactive Member Role/Relationship Status Dates Dr. Cain Pretty MD Primary Care Provider Active Start: January 06, 2025 End: January 06, 2025 Dr. Cain Pretty MD Referring Provider Active Start: January 06, 2025 End: January 06, 2025 Dr. Smiley Madrid MD Attending Provider Active Start: January 06, 2025 End: January 06, 2025 Team Status: Active Member Role/Relationship Status Dates Dr. Cain Pretty MD Primary Care Provider Active Start: January 06, 2025 Dr. Smiley Madrid MD Attending Provider Active Start: January 06, 2025 Dr. Smiley Madrid MD Referring Provider Active Start: January 06, 2025 Team Status: Inactive Member Role/Relationship Status Dates Dr. Cain Pretty MD Primary Care Provider Active Start: January 12, 2025 End: January 12, 2025 Dr. Cain Pretty MD Referring Provider Active Start: January 12, 2025 End: January 12, 2025 Dr. Smiley Madrid MD Attending Provider Active Start: January 12, 2025 End: January 12, 2025 Team Status: Active Member Role/Relationship Status Dates Dr. Cain Pretty MD Primary care physician Active Team Status: Inactive Member Role/Relationship Status Dates Dr. Cain Pretty MD Primary care physician Active Start: October 13, 2024 End: October 13, 2024 Dr. Cain Pretty MD Referring Provider Active Start: October 13, 2024 End: October 13, 2024 Margo San CNM Attending physician Active Start: October 13, 2024 End: October 13, 2024 Team Status: Inactive Member Role/Relationship Status Dates Dr. Cain Pretty MD Primary care physician Active Start: October 13, 2024 End: October 13, 2024 Margo San CNM Attending physician Active Start: October 13, 2024 End: October 13, 2024 Margo San CNM Referring Provider Active S tart: October 13, 2024 End: October 13, 2024 Team Status: Inactive Member Role/Relationship Status Dates Dr. Cain Pretty MD Primary care physician Active Start: October 27, 2024 End: October 27, 2024 Dr. Cain Pretty MD Referring Provider Active Start: October 27, 2024 End: October 27, 2024 Dr. Smiley Madrid MD Attending physician Active Start: October 27, 2024 End: October 27, 2024 Team Status: Inactive Member Role/Relationship Status Dates Dr. Cain Pretty MD Primary care physician Active Start: October 27, 2024 End: October 27, 2024 Dr. Smiley Madrid MD Attending physician Active Start: October 27, 2024 End: October 27, 2024 Dr. Smiley Madrid MD Referring Provider Active Start: October 27, 2024 End: October 27, 2024 Team Status: Inactive Member Role/Relationship Status Dates Dr. Cain Pretty MD Primary care physician Active Start: November 18, 2024 End: November 18, 2024 Dr. Cain Pretty MD Referring Provider Active Start: November 18, 2024 End: November 18, 2024 Dr. Jackie Patterson DO Attending physician Acti ve Start: November 18, 2024 End: November 18, 2024 Team Status: Inactive Member Role/Relationship Status Dates Dr. Cain Pretty MD Primary care physician Active Start: December 01, 2024 End: December 01, 2024 Dr. Cain Pretty MD Referring Provider Active Start: December 01, 2024 End: December 01, 2024 Margo San CNM Attending physician Active Start: December 01, 2024 End: December 01, 2024 Team Status: Inactive Member Role/Relationship Status Dates Dr. Cain Pretty MD Primary care physician Active Start: December 18, 2024 End: December 18, 2024 Dr. Cain Pretty MD Referring Provider Active Start: December 18, 2024 End: December 18, 2024 Dr. Smiley Madrid MD Attending physician Active Start: December 18, 2024 End: December 18, 2024 Team Status: Inactive Member Role/Relationship Status Dates Dr. Cain Pretty MD Primary care physician Active Start: December 18, 2024 End: December 18, 2024 Dr. Smiley Madrid MD Attending physician Active Start: December 18, 2024 End: December 18, 2024 Dr. Smiley Madrid MD Referring Provider Active Start: December 18, 2024 End: December 18, 2024 Team Status: Inactive Member Role/Relationship Status Dates Dr. Cain Pretty MD Primary care physician Active Start: January 06, 2025 End: January 06, 2025 Dr. Cain Pretty MD Referring Provider Active Start: January 06, 2025 End: January 06, 2025 Dr. Smiley Madrid MD Attending physician Active Start: January 06, 2025 End: January 06, 2025 Team Status: Inactive Member Role/Relationship Status Dates Dr. Cain Pretty MD Primary care physician Active Start: January 06, 2025 End: January 06, 2025 Dr. Smiley Madrid MD Attending physician Active Start: January 06, 2025 End: January 06, 2025 Dr. Smiley Madrid MD Referring Provider Active Start: January 06, 2025 End: January 06, 2025 Team Status: Inactive Member Role/Relationship Status Dates Dr. Cain Pretty MD Primary care physician Active Start: January 12, 2025 End: January 12, 2025 Dr. Cain Pretty MD Referring Provider Active Start: January 12, 2025 End: January 12, 2025 Dr. Smiley Madrid MD Attending physician Active Start: January 12, 2025 End: January 12, 2025 Team Status: Inactive Member Role/Relationship Status Dates Dr. Cain Pretty MD Primary care physician Active Start: February 09, 2025 End: February 09, 2025 Dr. Cain Pretty MD Referring Provider Active Start: February 09, 2025 End: February 09, 2025 Margo San CNM Attending physician Active Start: February 09, 2025 End: February 09, 2025 Team Status: Active Member Role/Relationship Status Dates Dr. Cain Pretty MD Primary care physician Active Start: February 09, 2025 Dr. Smiley Madrid MD Attending physician Active Start: February 09, 2025 Team Status: Inactive Member Role/Relationship Status Dates Dr. Cain Pretty MD Primary care physician Active Start: November 18, 2024 End: November 18, 2024 Dr. Cain Pretty MD Referring Provider Active Start: November 18, 2024 End: November 18, 2024 Dr. Jackie Patterson DO Attending physician Acti ve Start: November 18, 2024 End: November 18, 2024 Team Status: Inactive Member Role/Relationship Status Dates Dr. Cain Pretty MD Primary care physician Active Start: December 01, 2024 End: December 01, 2024 Dr. Cain Pretty MD Referring Provider Active Start: December 01, 2024 End: December 01, 2024 Margo San CNM Attending physician Active Start: December 01, 2024 End: December 01, 2024 Team Status: Inactive Member Role/Relationship Status Dates Dr. Cain Pretty MD Primary care physician Active Start: December 18, 2024 End: December 18, 2024 Dr. Cain Pretty MD Referring Provider Active Start: December 18, 2024 End: December 18, 2024 Dr. Smiley Madrid MD Attending physician Active Start: December 18, 2024 End: December 18, 2024 Team Status: Inactive Member Role/Relationship Status Dates Dr. Cain Pretty MD Primary care physician Active Start: December 18, 2024 End: December 18, 2024 Dr. Smiley Madrid MD Attending physician Active Start: December 18, 2024 End: December 18, 2024 Dr. Smiley Madrid MD Referring Provider Active Start: December 18, 2024 End: December 18, 2024 Team Status: Inactive Member Role/Relationship Status Dates Dr. Cain Pretty MD Primary care physician Active Start: January 06, 2025 End: January 06, 2025 Dr. Cain Pretty MD Referring Provider Active Start: January 06, 2025 End: January 06, 2025 Dr. Smiley Madrid MD Attending physician Active Start: January 06, 2025 End: January 06, 2025 Team Status: Inactive Member Role/Relationship Status Dates Dr. Cain Pretty MD Primary care physician Active Start: January 06, 2025 End: January 06, 2025 Dr. Smiley Madrid MD Attending physician Active Start: January 06, 2025 End: January 06, 2025 Dr. Smiley Madrid MD Referring Provider Active Start: January 06, 2025 End: January 06, 2025 Team Status: Inactive Member Role/Relationship Status Dates Dr. Cain Pretty MD Primary care physician Active Start: January 12, 2025 End: January 12, 2025 Dr. Cain Pretty MD Referring Provider Active Start: January 12, 2025 End: January 12, 2025 Dr. Smilye Madrid MD Attending physician Active Start: January 12, 2025 End: January 12, 2025 Team Status: Inactive Member Role/Relationship Status Dates Dr. Cain Pretty MD Primary care physician Active Start: February 09, 2025 End: February 09, 2025 Dr. Cain Pretty MD Referring Provider Active Start: February 09, 2025 End: February 09, 2025 Margo San CNM Attending physician Active Start: February 09, 2025 End: February 09, 2025 Team Status: Inactive Member Role/Relationship Status Dates Dr. Cain Pretty MD Primary care physician Active Start: February 09, 2025 End: February 09, 2025 Dr. Smiley Madrid MD Attending physician Active Start: February 09, 2025 End: February 09, 2025 Team Status: Inactive Member Role/Relationship Status Dates Dr. Cain Pretty MD Primary care physician Active Start: February 23, 2025 End: February 23, 2025 Dr. Cain Pretty MD Referring Provider Active Start: February 23, 2025 End: February 23, 2025 Margo San CNM Attending physician Active Start: February 23, 2025 End: February 23, 2025 Team Status: Inactive Member Role/Relationship Status Dates Dr. Cain Pretty MD Primary care physician Active Start: March 09, 2025 End: March 09, 2025 Dr. Cain Pretty MD Referring Provider Active Start: March 09, 2025 End: March 09, 2025 Margo San CNM Attending physician Active Start: March 09, 2025 End: March 09, 2025 Reason for Visit (unrecogniz ed section and content) Reason Comments Physical Therapy PT Discharge Specialty Diagnoses / Procedures Referred By Deboraac t Referred To Contact PHYSICAL THERAPY Diagnoses Cervicogenic headache Procedures CONSULT TO PHYSICAL THERAPY PHYSICAL THERAPY EVALUATION HIGH COMPLEX 45 MINS Genet Denton PA-C [address] [place] [address] Zita Velasco, PT, DPT [address] [place] [address] Referral ID Status Reason Start Date Expiration Date Visits Requested Visits Authorized [id number] Authorized Auto-Generat ed Referral 11/14/2022 05/06/2023 1 [...] Specialty Diagnoses / Procedures Referred By Dion t Referred To Contact PHYSICAL THERAPY Diagnoses Cervicogenic headache Procedures CONSULT TO PHYSICAL THERAPY PHYSICAL THERAPY EVALUATION HIGH COMPLEX 45 MINS Genet Denton PA-C [address] [place] [address] Zita Velasco, PT, DPT [address] [place] [address] Reason Comments Physical Therapy Reason Onset Date Comments Refill Request 01/11/2023 Specialty Diagnoses / Procedures Referred By Dion collado Referred To Contact MR IMAGING Diagnoses Demyelinating disease of central nervous system (HCC) Procedures MRI BRAIN WO/W IVCON MRI BRAIN BRAIN STEM W/O W/CONTRAST MATERIAL Genet Denton PA-C [address] [place] [address] [place] [address] Referral ID Status Reason Start Date Expiration Date V isits Requested Visits Authorized [id number] Closed Auto-Generate d Referral 11/14/2022 12/14/2023 1 1 Specialty Diagnoses / Procedures Referred By Contac t Referred To Contact MR IMAGING Diagnoses Demyelinating disease of central nervous system (HCC) Procedures MRI CERVICAL SPINE WO/W IVCON MRI SPINAL CANAL CERVICAL W/O & W/CONTR Genet Khalil PA-C [address] [place] [address] [place] [address] Referral ID Status Reason Start Date Expiration Date V isits Requested Visits Authorized [id number] Closed Auto-Generate d Referral 11/14/2022 12/14/2023 1 1 Reason Comments Acute Visit L ear pain/sinus pre ssure and pressure in both ears; treated for sinus infection in April; has not been getting any better; using [employer] Reason Comments Urinary Frequency low back pain x 3 da ys, 13 weeks being evaluated for possible miscarriage Reason Comments Outside Imaging and ER Reason Onset Date Comments Refill Request 01/23/2024 Reason Comments Physical Reason Comments Results Outside labs Reason Comments ER Discharge Summary Reason Comments Outside RESIDENTIAL DIRECT SUPPORT PROFESSIONAL Procedure Reason Comments Outside [id number] Ordered Reason Onset Date Comments Results 07/21/2024 Reason Comments Results Outside facility lab s Reason Onset Date Comments Refill Request 08/25/2024 Future Appointment 08/25/2024 Reason Comments Urinary Problem Burning, frequency, lower back pain, dysuria x 3 days Reason Comments Outside Labs Results FOR RECORDS PERTAINING TO PATIENTS WHO ARE [...] BE BASED ON THE PRIMARY CLINICAL RECORDS. [employer] provides no warranty or guarantee of the accuracy or completeness of information in this [id number]
== END | disposition home or self-care (01) ==
PROVIDERS: PCP Family Medicine; Referring Provider Nurse Practitioner Women's Health; Visit Provider Nurse Practitioner Women's Health
DX: R10.10 Upper abdominal pain, unspecified (principal)
CPT/HCPCS: 76705